=== PATIENT | female | born 1940 | race Caucasian/White ===

== ENCOUNTER 2016-08-01 10:00 | Outpatient (CLI) | payer MEDICARE, OTHER ==
[2016-08-01 13:09] LABS: BASOPHILS # (AUTO) 0.1 10^3/uL (0.0-0.1); BASOPHILS % (AUTO) 1.1 %; EOSINOPHILS # (AUTO) 0.3 10^3/uL (0.0-0.7); HCT - HEMATOCRIT 42.3 % (37.0-47.0); HGB - HEMOGLOBIN 14.2 g/dL (12.0-16.0); LYMPHOCYTES # (AUTO) 2.5 10^3/uL (1.5-3.5); LYMPHOCYTES % (AUTO) 29.4 %; MEAN CORPUSCULAR HEMOGLOBIN 28.6 pg (27.0-31.0); MEAN CORPUSCULAR HGB CONC 33.6 g/dL (32.0-36.0); MEAN CORPUSCULAR VOLUME 85.1 fL (81.0-99.0); MEAN PLATELET VOLUME 7.9 fL (7.9-10.8); MONOCYTES # (AUTO) 0.4 10^3/uL (0.0-1.0); MONOCYTES % (AUTO) 4.7 %; NEUTROPHILS # (AUTO) 5.4 10^3/uL (1.5-6.6); NEUTROPHILS % (AUTO) 61.8 %; RED BLOOD COUNT 4.97 10^6/uL (4.20-5.40); RED CELL DISTRIBUTION WIDTH 13.4 % (12.0-15.0); UNCORRECTED WHITE BLOOD COUNT 8.7 x10^3/uL; WHITE BLOOD COUNT 8.7 x10^3/uL (4.8-10.8)
[2016-08-01 13:46] LABS: ALBUMIN/GLOBULIN RATIO 1.5 (1.0-2.2); BILIRUBIN,TOTAL 0.5 mg/dL (0.2-1.0); BUN - BLOOD UREA NITROGEN 13 mg/dL (6-20); CALCIUM 9.7 mg/dL (8.5-10.3); CARBON DIOXIDE - CO2 30 mmol/L (21-32); CHLORIDE 101 mmol/L (101-111); CHOL/HDL RATIO 2.5 (<4.4); CHOLESTEROL 122 mg/dL; CREATININE 0.8 mg/dL (0.4-1.0); GFR - MDRD 70 (>89); GLUCOSE 107 mg/dL (70-100); HDL CHOLESTEROL 49 mg/dL; LDL/HDL RATIO 1.1 (<4.4); POTASSIUM 3.4 mmol/L (3.5-5.0); SODIUM 139 mmol/L (135-145); TRIGLYCERIDES 91 mg/dL; VLDL CHOLESTEROL 18 mg/dL
[2016-08-01 18:49] LABS: HEMOGLOBIN A1C 0.53 g/dL
== END 2016-08-01 10:01 | disposition home or self-care (01) ==
LOC: LAB.WCP 10:00
PROVIDERS: ATTEND Family Medicine
DX: I10 Essential (primary) hypertension (principal); E11.9 Type 2 diabetes mellitus without complications; E78.5 Hyperlipidemia, unspecified
CPT/HCPCS: 36415; 80053; 80061; 82043; 83036; 85025

== ENCOUNTER 2016-10-24 17:23 | Outpatient (CLI) | payer MEDICARE, OTHER ==
[2016-10-24 13:17] LABS: BASOPHILS # (AUTO) 0.1 10^3/uL (0.0-0.1); EOSINOPHILS # (AUTO) 0.4 10^3/uL (0.0-0.7); EOSINOPHILS % (AUTO) 4.6 %; HCT - HEMATOCRIT 44.4 % (37.0-47.0); HGB - HEMOGLOBIN 14.5 g/dL (12.0-16.0); LYMPHOCYTES # (AUTO) 2.6 10^3/uL (1.5-3.5); LYMPHOCYTES % (AUTO) 27.1 %; MEAN CORPUSCULAR HEMOGLOBIN 27.7 pg (27.0-31.0); MEAN CORPUSCULAR HGB CONC 32.6 g/dL (32.0-36.0); MEAN CORPUSCULAR VOLUME 85.2 fL (81.0-99.0); MEAN PLATELET VOLUME 7.6 fL (7.9-10.8); MONOCYTES # (AUTO) 0.6 10^3/uL (0.0-1.0); MONOCYTES % (AUTO) 6.5 %; NEUTROPHILS # (AUTO) 5.9 10^3/uL (1.5-6.6); NEUTROPHILS % (AUTO) 60.8 %; RED BLOOD COUNT 5.21 10^6/uL (4.20-5.40); RED CELL DISTRIBUTION WIDTH 13.1 % (12.0-15.0); UNCORRECTED WHITE BLOOD COUNT 9.7 x10^3/uL; WHITE BLOOD COUNT 9.7 x10^3/uL (4.8-10.8)
[2016-10-24 13:36] LABS: HEMOGLOBIN A1C 0.64 g/dL
[2016-10-24 13:37] LABS: ALBUMIN/GLOBULIN RATIO 1.6 (1.0-2.2); BILIRUBIN,TOTAL 0.7 mg/dL (0.2-1.0); BUN - BLOOD UREA NITROGEN 13 mg/dL (6-20); CALCIUM 9.5 mg/dL (8.5-10.3); CARBON DIOXIDE - CO2 30 mmol/L (21-32); CHLORIDE 98 mmol/L (101-111); CHOL/HDL RATIO 2.7 (<4.4); CHOLESTEROL 129 mg/dL; CREATININE 0.9 mg/dL (0.4-1.0); GFR - MDRD 61 (>89); GLUCOSE 103 mg/dL (70-100); HDL CHOLESTEROL 48 mg/dL; LDL/HDL RATIO 1.2 (<4.4); POTASSIUM 3.9 mmol/L (3.5-5.0); SODIUM 136 mmol/L (135-145); TOTAL PROTEIN 6.8 g/dL (6.7-8.2); TRIGLYCERIDES 111 mg/dL; VLDL CHOLESTEROL 22 mg/dL
== END 2016-10-24 17:24 | disposition home or self-care (01) ==
LOC: LAB.WCP 17:23
PROVIDERS: ATTEND Family Medicine
DX: E78.5 Hyperlipidemia, unspecified (principal); E11.9 Type 2 diabetes mellitus without complications; I10 Essential (primary) hypertension
CPT/HCPCS: 36415; 80053; 80061; 83036; 85025

== ENCOUNTER 2017-02-01 15:23 | Outpatient (CLI) | payer MEDICARE, OTHER ==
--- NOTE | 2017-02-02 11:43 | XRAY Report ---
THREE-VIEW LEFT SHOULDER: 02/01/2017 CLINICAL INDICATION: Pain. FINDINGS: AP, oblique, scapular Y views of the left shoulder demonstrate severe osteoarthritis of th e glenohumeral joint. There is no evidence of acute fracture or dislocation. No radiopaque foreign body is seen in the soft tissues. IMPRESSION: SEVERE OSTEOARTHRITIS. JOB #: [id number] EXT JOB #:[id number]
== END 2017-02-01 15:24 | disposition home or self-care (01) ==
LOC: DI 15:23
PROVIDERS: ATTEND Family Medicine
DX: M19.012 Primary osteoarthritis, left shoulder (principal)

== ENCOUNTER 2017-02-14 15:08 | Outpatient (CLI) | payer MEDICARE, OTHER ==
[2017-02-14 12:36] LABS: BASOPHILS # (AUTO) 0.1 10^3/uL (0.0-0.1); BASOPHILS % (AUTO) 1.3 %; EOSINOPHILS # (AUTO) 0.4 10^3/uL (0.0-0.7); EOSINOPHILS % (AUTO) 5.4 %; HCT - HEMATOCRIT 43.2 % (37.0-47.0); HGB - HEMOGLOBIN 14.3 g/dL (12.0-16.0); LYMPHOCYTES # (AUTO) 2.5 10^3/uL (1.5-3.5); LYMPHOCYTES % (AUTO) 30.5 %; MEAN CORPUSCULAR HEMOGLOBIN 28.3 pg (27.0-31.0); MEAN CORPUSCULAR HGB CONC 33.1 g/dL (32.0-36.0); MEAN CORPUSCULAR VOLUME 85.5 fL (81.0-99.0); MEAN PLATELET VOLUME 8.1 fL (7.9-10.8); MONOCYTES # (AUTO) 0.4 10^3/uL (0.0-1.0); MONOCYTES % (AUTO) 5.5 %; NEUTROPHILS # (AUTO) 4.6 10^3/uL (1.5-6.6); NEUTROPHILS % (AUTO) 57.3 %; RED BLOOD COUNT 5.05 10^6/uL (4.20-5.40); RED CELL DISTRIBUTION WIDTH 13.1 % (12.0-15.0); UNCORRECTED WHITE BLOOD COUNT 8.1 x10^3/uL; WHITE BLOOD COUNT 8.1 x10^3/uL (4.8-10.8)
== END 2017-02-14 15:09 | disposition home or self-care (01) ==
LOC: LAB.WCP 15:08
PROVIDERS: ATTEND Family Medicine
DX: D47.3 Essential (hemorrhagic) thrombocythemia (principal)
CPT/HCPCS: 36415; 85025

== ENCOUNTER 2017-03-10 04:25 | Emergency (ER) | payer MEDICARE, OTHER ==
[2017-03-10] MEDS ORDERED: MECLIZINE 12.5 MG TABLET PO STA (04:45)
--- NOTE | 2017-03-10 04:45 | ED Physician Documentation ---
History of Present Illness - Stated complaint Stated Complaint: DIZZINESS - Chief complaint Chief Complaint: General - History obtained from History obtained from: Patient, Family - History of Present Illness Timing: Yesterday Pain level max: 0 Pain level now: 0 Improved by: remaining still Worsened by: moving, changing positions. - Additonal information Additional information: Patient is a 76-year-old female who presents to the emergency department with feeling like the room is spinning around her intermittently for the past 24 hours. States it is worse with movement and better with remaining still. Also occurs when she turns her head. Has had no other focal numbness or weakness. No difficulty with speech. No difficulty with word finding. No head injury. No trauma. Has not had similar symptoms in the past. No new medications. No recent illness. She is not near syncopal. Currently she is asymptomatic and feels normal. Review of Systems Ten Systems: 10 systems reviewed and negative Constitutional: denies: Fever, Chills, Myalgias Eyes: denies: Loss of vision, Decreased vision, Photophobia Ears: denies: Ear pain Nose: denies: Rhinorrhea / runny nose, Congestion Throat: denies: Sore throat Cardiac: denies: Chest pain / pressure Respiratory: reports: Other (uses home O2 for COPD). 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 : Kidney stones HEENT: None Psych: None Musculoskeletal: Chronic back pain Derm: None - Past Surgical History Past Surgical History: Yes - Present Medications Home Medications: Ambulatory Orders Medication Instructions Recorded Confirmed Fluticasone/Salmeterol 100/50 60 puffs INH 10/27/12 04/25/15 [Advair 100 Mcg/50 Mcg] Hydrochlorothiazide 25 gm MC 10/27/12 04/25/15 Tiotropium [Spiriva] 1 puffs INH DAILY 10/27/12 04/25/15 Albuterol 2.5 mg INH Q4H PRN #30 neb 04/25/15 Azithromycin [Zithromax] 250 mg PO DAILY #6 tablet 04/25/15 Ondansetron HCl [Zofran] 4 mg PO Q6H PRN #20 tablet 04/25/15 predniSONE [Deltasone] 40 mg PO DAILY 5 Days tablet 04/25/15 Meclizine [Antivert] 12.5 mg PO Q6H PRN #10 tablet 03/10/17 Nitrofurantoin Monohyd/M-Cryst 100 mg PO BID #10 capsule 03/10/17 [Macrobid 100 mg Capsule] - Allergies Allergies/Adverse Reactions: Allergies Allergy/AdvReac Type Severity Reaction Status Date / Time Penicillins Allergy Intermediate Hives Verified 03/10/17 04:39 aspirin Allergy Mild Rash Verified 03/10/17 04:39 piroxicam [From Feldene] Allergy Mild Rash Verified 03/10/17 04:39 - Social History Does the pt smoke?: No Smoking Status: Never smoker Does the pt drink ETOH?: No Does the pt have substance abuse?: No - Immunizations Immunizations are current?: Yes - POLST Patient has POLST: No PD ED PE NORMAL - Vitals Vital signs reviewed: Yes - General General: Alert and oriented X 3, No acute distress, Well developed/nourished - HEENT HEENT: Atraumatic, PERRL, EOMI (no nystagmus, no palsy), Ears normal, Moist mucous membranes, Pharynx benign - Neck Neck: Supple, no meningeal sign - Cardiac Cardiac: RRR - Respiratory Respiratory: No respiratory distress, Clear bilaterally - Abdomen Abdomen: Soft, Non tender, Non distended - Back Back: No spinal TTP - Derm Derm: Warm and dry - Extremities Extremities: No calf tenderness / cord - Neuro Neuro: Alert and oriented X 3, 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 normal finger to nose, heel to white.) Eye Opening: Spontaneous Motor: Localizes to Pain - Psych Psych: Normal mood, Normal affect Results - Vitals Vitals: Vital Signs - 24 hr 03/10/17 03/10/17 03/10/17 04:34 05:00 05:15 Temperature 36.0 C L Heart Rate 87 75 80 Respiratory 20 13 16 Rate Blood Pressure 152/77 H 152/82 H O2 Saturation 92 100 03/10/17 03/10/17 05:45 06:15 Temperature Heart Rate 79 73 Respiratory 17 16 Rate Blood Pressure 151/81 H O2 Saturation 99 100 Oxygen O2 Source Nasal cannula Oxygen Flow Rate 3 - EKG (time done) 5003 Rate: Rate (enter#) (76) Rhythm: NSR, Other (PVC) [place]: Normal Intervals: Normal MD QRS: Normal Ischemia: Normal ST segments, Q waves (II, III, aVF) Compare to prior EKG: Unchanged from prior EKG - Labs Labs: Laboratory Tests 03/10/17 03/10/17 03/10/17 04:50 04:50 05:45 WBC 14.0 H RBC 5.21 Hgb 14.7 Hct 45.1 MCV 86.7 MCH 28.2 MCHC 32.5 RDW 13.2 Plt Count 393 MPV 7.4 L Neut # 10.8 H Lymph # 2.2 [place] # 0.6 Eos # 0.3 Baso # 0.1 Absolute Nucleated RBC 0.00 Nucleated RBC % 0.0 Sodium 139 Potassium 3.2 L Chloride 99 L Carbon Dioxide 34 H Anion Gap 6.0 BUN 12 Creatinine 0.8 Estimated GFR (MDRD) 70 L Glucose 142 H Calcium 9.0 Total Bilirubin 0.3 AST 20 ALT 15 Alkaline Phosphatase 91 Total Protein 7.0 Albumin 4.1 Globulin 2.9 Albumin/Globulin Ratio 1.4 Lipase 28 Urine Color YELLOW Urine Clarity CLEAR Urine pH 6.5 Ur Specific [place] 1.010 Urine Protein NEGATIVE Urine Glucose (UA) NEGATIVE Urine Ketones NEGATIVE Urine Occult Blood NEGATIVE Urine Nitrite POSITIVE H Urine Bilirubin NEGATIVE Urine Urobilinogen 0.2 (NORMAL) Ur Leukocyte Esterase NEGATIVE Urine RBC 0-5 Urine WBC 4-5 Ur Squamous Epith Cells FEW Squamous Urine Bacteria Many H Ur Microscopic Review INDICATED Urine Culture Comments INDICATED PD MEDICAL DECISION MAKING - ED course Complexity details: reviewed results, re-evaluated patient, considered differential, d/w patient, d/w family ED course: Patient is a 76-year-old female who presents to the emergency department with what sounds like benign paroxysmal positional vertigo. No evidence of stroke. No evidence of cerebellar stroke. No evidence of tumor mass. Asymptomatic in the emergency department. No acute findings on laboratory testing. No acute EKG abnormalities. Will trial her on meclizine at home and follow-up with her doctor. No vertigo while in the ED. Patient also appears to have a urinary tract infection. Will place on Macrobid and have her follow-up with her doctor. She is well-appearing, nontoxic. Afebrile. No sepsis. No pyelonephritis Patient and family counseled regarding signs and symptoms for which I believe and urgent re-evaluation would be necessary. Patient with good understanding of and agreement to plan and is comfortable going home at this time This document was made in part using voice recognition software. While efforts are made to proofread this document, sound alike and grammatical errors may occur. Departure - Departure Disposition: Home, Self Care Clinical Impression: Hypokalemia BPPV (benign paroxysmal positional vertigo) Qualifiers: Laterality: unspecified laterality Qualified Code(s): H81.10 - Benign paroxysmal vertigo, unspecified ear UTI (urinary tract infection) Qualifiers: Urinary tract infection type: acute cystitis Hematuria presence: without hematuria Qualified Code(s): N30.00 - Acute cystitis without hematuria Condition: Good Instructions: ED BPV Vertigo, ED UTI Cystitis Female Follow-Up: Josselyn Munguia MD [Primary Care Provider] - Within 1 week Prescriptions: Meclizine [Antivert] 12.5 mg PO Q6H PRN #10 tablet PRN Reason: Vertigo Nitrofurantoin Monohyd/M-Cryst [Macrobid 100 mg Capsule] 100 mg PO BID #10 capsule Comments: Take all antibiotics until gone. Return if you worsen. Your vertigo symptoms should improve over the next few days. You can try the meclizine at home as well. Discharge Date/Time: 03/10/17 06:34
[2017-03-10 05:15] LABS: BASOPHILS # (AUTO) 0.1 10^3/uL (0.0-0.1); BASOPHILS % (AUTO) 0.5 %; EOSINOPHILS # (AUTO) 0.3 10^3/uL (0.0-0.7); EOSINOPHILS % (AUTO) 2.4 %; HCT - HEMATOCRIT 45.1 % (37.0-47.0); HGB - HEMOGLOBIN 14.7 g/dL (12.0-16.0); LYMPHOCYTES # (AUTO) 2.2 10^3/uL (1.5-3.5); LYMPHOCYTES % (AUTO) 15.4 %; MEAN CORPUSCULAR HEMOGLOBIN 28.2 pg (27.0-31.0); MEAN CORPUSCULAR HGB CONC 32.5 g/dL (32.0-36.0); MEAN CORPUSCULAR VOLUME 86.7 fL (81.0-99.0); MEAN PLATELET VOLUME 7.4 fL (7.9-10.8); MONOCYTES # (AUTO) 0.6 10^3/uL (0.0-1.0); MONOCYTES % (AUTO) 4.4 %; NEUTROPHILS # (AUTO) 10.8 10^3/uL (1.5-6.6); NEUTROPHILS % (AUTO) 77.3 %; RED BLOOD COUNT 5.21 10^6/uL (4.20-5.40); RED CELL DISTRIBUTION WIDTH 13.2 % (12.0-15.0)
[2017-03-10 05:17] LABS: ALBUMIN/GLOBULIN RATIO 1.4 (1.0-2.2); BILIRUBIN,TOTAL 0.3 mg/dL (0.2-1.0); CREATININE 0.8 mg/dL (0.4-1.0); POTASSIUM 3.2 mmol/L (3.5-5.0)
[2017-03-10] MEDS ORDERED: POTASSIUM BICARB 25 MEQ TABLET PO STA (05:29)
[2017-03-10 05:59] LABS: BILIRUBIN,URINE NEGATIVE (NEGATIVE); PH,URINE 6.5 PH (5.0-7.5)
[2017-03-10 06:11] LABS: UA w/ MICROSCOPIC CHARGE YES
[2017-03-10 06:12] LABS: UR CULTURE IF IND INDICATED
[2017-03-10 06:16] VITALS: BP 151/81
[2017-03-10] MEDS ORDERED: NITROFURANTOIN MACRO 100 MG CAPSULE PO STA (06:17)
== END 2017-03-10 06:34 | disposition home or self-care (01) ==
LOC: ED 04:25
DX: H81.10 Benign paroxysmal vertigo, unspecified ear (principal); N30.00 Acute cystitis without hematuria; I10 Essential (primary) hypertension; J44.9 Chronic obstructive pulmonary disease, unspecified
CPT/HCPCS: 36415; 80053; 81001; 83690; 85025; 87086; 93005; 99284; A9270; 81003

== ENCOUNTER 2017-03-22 11:37 | Outpatient (CLI) | payer MEDICARE, OTHER ==
[2017-03-22] MEDS ORDERED: IOPAMIDOL-300 50 ML VIAL ONE (11:57)
--- NOTE | 2017-03-23 09:05 | CT Report ---
DATE OF SERVICE: 03/22/[address] WITHOUT CONTRAST: 03/22/2017 COMPARISON: Abdomen and pelvis CT 10/27/2012. INDICATION: Weight loss, right flank pain. COPD and dizziness. TECHNIQUE: Noncontrast axial imaging of the abdomen and pelvis with coronal and sagittal reformats. In accordance with CT protocol optimization, one or more of the following dose reduction techniques were utilized for this exam: Automated exposure control, adjustment of mA and/or KV based on patient size, or use of iterative reconstructive technique. FINDINGS: Limited lung bases show atelectasis or consolidation of the right middle lobe and lingula. Seen to advantage on the concurrent chest imaging is a small focal area of pericardial thickening anteriorly. Uncertain etiology or significance. Noncontrast evaluation of the liver, spleen, pancreas, and adrenal glands is unremarkable. There is a 5 mm lower left renal stone without evidence of urologic obstruction. There is a 2 mm stone of the upper right kidney. Also, no evidence of obstruction. There is an infrarenal abdominal aortic aneurysm. It measures 3.1 cm AP and 4.4 cm transverse. There are colon diverticula without evidence of diverticulitis. No bone lesions. Soft tissues appear grossly unremarkable. IMPRESSION: 1. Infrarenal abdominal aortic aneurysm warrants followup evaluation. 2. There are bilateral nonobstructing renal stones. TD: 03/22/2017 22:10 MTDD
--- NOTE | 2017-03-23 09:05 | CT Report ---
DATE OF SERVICE: 03/22/[address]: 03/22/2017 COMPARISON: None INDICATION: Weight loss. COPD and dizziness. TECHNIQUE: Noncontrast axial imaging of the chest with coronal and sagittal reformats. In accordance with CT protocol optimization, one or more of the following dose reduction techniques were utilized for this exam: Automated exposure control, adjustment of mA and/or KV based on patient size, or use of iterative reconstructive technique. FINDINGS: There is focal pericardial thickening anteriorly that measures 1.0 cm , of uncertain significance. There are moderate emphysematous changes of the lungs diffusely. There is bibasilar scar and atelectasis, predominantly about the right middle lobe and lingula. No pneumothorax or pleural effusion. No bulky mediastinal or hilar adenopathy. There are a few subcentimeter mediastinal lymph nodes. There are calcifications of the coronary arteries. No bone lesions. Soft tissues grossly unremarkable. IMPRESSION: Bibasilar atelectasis and scar predominantly about the right middle lobe and lingula. Subtle consolidations are difficult to exclude. Correlate clinically for possible pneumonia. Followup is available. Subtle focal pericardial thickening is of uncertain etiology. TD: 03/22/2017 22:02 CHERYL
--- NOTE | 2017-03-23 10:02 | CT Report ---
DATE OF SERVICE: 03/22/[address]: 03/22/2017 No comparison. INDICATION: Vertigo since the end of February. Weight loss. Right flank pain , COPD and dizziness. TECHNIQUE: Noncontrast axial imaging of the head with coronal reformats. In accordance with CT protocol optimization, one or more of the following dose reduction techniques were utilized for this exam: Automated exposure control, adjustment of mA and/or KV based on patient size, or use of iterative reconstructive technique. FINDINGS: There are periventricular and deep white matter low attenuating foci , which are most suggestive of chronic microvascular angiopathic changes. No territorial edema. No intracranial mass or evidence of intracranial hemorrhage. There is chronic appearing right maxillary sinus disease. The mastoid air cells appear well aerated. No calvarial abnormality is seen. Soft tissues and orbits appear grossly unremarkable. 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 It measures 1.7 x 4.5 cm axially. IMPRESSION: Findings are most suggestive of chronic microangiopathic changes. No evidence of acute intracranial process. TD: 03/22/2017 21:59 MTDD
== END 2017-03-22 11:38 | disposition home or self-care (01) ==
LOC: DI 11:37
PROVIDERS: ATTEND Family Medicine
DX: R42 Dizziness and giddiness (principal); R63.4 Abnormal weight loss; R10.9 Unspecified abdominal pain; J20.9 Acute bronchitis, unspecified; J44.9 Chronic obstructive pulmonary disease, unspecified; J98.11 Atelectasis; I71.4 Abdominal aortic aneurysm, without rupture; N20.0 Calculus of kidney
CPT/HCPCS: 70450; 71250; 74176; Q9967

== ENCOUNTER 2017-04-23 09:10 | Outpatient (CLI) | payer MEDICARE, OTHER ==
[2017-04-23 13:06] LABS: BASOPHILS # (AUTO) 0.1 10^3/uL (0.0-0.1); BASOPHILS % (AUTO) 0.9 %; EOSINOPHILS # (AUTO) 0.3 10^3/uL (0.0-0.7); EOSINOPHILS % (AUTO) 3.6 %; HGB - HEMOGLOBIN 14.2 g/dL (12.0-16.0); LYMPHOCYTES # (AUTO) 2.8 10^3/uL (1.5-3.5); MEAN CORPUSCULAR HEMOGLOBIN 28.3 pg (27.0-31.0); MEAN CORPUSCULAR HGB CONC 32.9 g/dL (32.0-36.0); MEAN CORPUSCULAR VOLUME 86.1 fL (81.0-99.0); MEAN PLATELET VOLUME 8.2 fL (7.9-10.8); MONOCYTES # (AUTO) 0.4 10^3/uL (0.0-1.0); MONOCYTES % (AUTO) 4.5 %; NEUTROPHILS # (AUTO) 5.8 10^3/uL (1.5-6.6); PLT - PLATELET COUNT 371 10^3/uL (130-450); RED BLOOD COUNT 5.02 10^6/uL (4.20-5.40); RED CELL DISTRIBUTION WIDTH 13.3 % (12.0-15.0); WHITE BLOOD COUNT 9.4 x10^3/uL (4.8-10.8)
[2017-04-23 13:34] LABS: ALBUMIN 4.1 g/dL (3.2-5.5); ALBUMIN/GLOBULIN RATIO 1.5 (1.0-2.2); ALKALINE PHOSPHATASE 72 IU/L (42-121); ALT ALANINE AMINOTRANSFERASE 15 IU/L (10-60); AST ASPARTATE AMINOTRANSFERASE 20 IU/L (10-42); BILIRUBIN,TOTAL 0.7 mg/dL (0.2-1.0); BUN - BLOOD UREA NITROGEN 17 mg/dL (6-20); CARBON DIOXIDE - CO2 30 mmol/L (21-32); CHLORIDE 103 mmol/L (101-111); CHOL/HDL RATIO 2.9 (<4.4); CHOLESTEROL 123 mg/dL; CREATININE 0.9 mg/dL (0.4-1.0); GFR - MDRD 61 (>89); GLUCOSE 108 mg/dL (70-100); HDL CHOLESTEROL 43 mg/dL; LDL CHOLESTEROL,CALCULATED 57 mg/dL; LDL/HDL RATIO 1.3 (<4.4); SODIUM 139 mmol/L (135-145); TOTAL PROTEIN 6.8 g/dL (6.7-8.2); VLDL CHOLESTEROL 23 mg/dL
[2017-04-23 14:19] LABS: HB2 TOTAL 15.8 g/dL; HEMOGLOBIN A1C 0.62 g/dL; HEMOGLOBIN A1C % 5.7 % (4.6-6.2)
== END 2017-04-23 09:11 | disposition home or self-care (01) ==
LOC: LAB.WCP 09:10
PROVIDERS: ATTEND Family Medicine
DX: E78.5 Hyperlipidemia, unspecified (principal); E11.9 Type 2 diabetes mellitus without complications; I10 Essential (primary) hypertension
CPT/HCPCS: 36415; 80053; 80061; 83036; 83721; 85025

== ENCOUNTER 2017-05-04 08:00 | Outpatient (CLI) | payer MEDICARE, OTHER ==
[2017-05-04 13:46] LABS: BASOPHILS # (AUTO) 0.1 10^3/uL (0.0-0.1); BASOPHILS % (AUTO) 0.8 %; EOSINOPHILS # (AUTO) 0.1 10^3/uL (0.0-0.7); EOSINOPHILS % (AUTO) 1.3 %; HGB - HEMOGLOBIN 13.6 g/dL (12.0-16.0); LYMPHOCYTES # (AUTO) 0.8 10^3/uL (1.5-3.5); LYMPHOCYTES % (AUTO) 7.4 %; MEAN CORPUSCULAR HEMOGLOBIN 28.8 pg (27.0-31.0); MEAN CORPUSCULAR HGB CONC 33.7 g/dL (32.0-36.0); MEAN CORPUSCULAR VOLUME 85.6 fL (81.0-99.0); MEAN PLATELET VOLUME 8.1 fL (7.9-10.8); MONOCYTES # (AUTO) 0.7 10^3/uL (0.0-1.0); MONOCYTES % (AUTO) 6.6 %; NEUTROPHILS # (AUTO) 8.6 10^3/uL (1.5-6.6); NEUTROPHILS % (AUTO) 83.9 %; PLT - PLATELET COUNT 341 10^3/uL (130-450); RED BLOOD COUNT 4.72 10^6/uL (4.20-5.40); WHITE BLOOD COUNT 10.3 x10^3/uL (4.8-10.8)
[2017-05-04 13:57] LABS: ALBUMIN 3.9 g/dL (3.2-5.5); ALBUMIN/GLOBULIN RATIO 1.3 (1.0-2.2); BILIRUBIN,TOTAL 0.6 mg/dL (0.2-1.0); CALCIUM 9.4 mg/dL (8.5-10.3); CREATININE 0.9 mg/dL (0.4-1.0); TOTAL PROTEIN 6.9 g/dL (6.7-8.2)
== END 2017-05-04 08:01 | disposition home or self-care (01) ==
LOC: LAB.WCP 08:00
PROVIDERS: ATTEND Physician Assistant Medical
DX: J44.1 Chronic obstructive pulmonary disease with (acute) exacerbation (principal); J44.0 Chronic obstructive pulmonary disease with (acute) lower respiratory infection; J18.9 Pneumonia, unspecified organism
CPT/HCPCS: 36415; 80053; 85025

== ENCOUNTER 2017-07-18 07:04 | Outpatient (CLI) | payer MEDICARE, OTHER ==
[2017-07-18 13:41] LABS: BASOPHILS # (AUTO) 0.1 10^3/uL (0.0-0.1); EOSINOPHILS # (AUTO) 0.4 10^3/uL (0.0-0.7); EOSINOPHILS % (AUTO) 4.7 %; HGB - HEMOGLOBIN 13.8 g/dL (12.0-16.0); LYMPHOCYTES # (AUTO) 2.3 10^3/uL (1.5-3.5); LYMPHOCYTES % (AUTO) 26.9 %; MEAN CORPUSCULAR HEMOGLOBIN 28.7 pg (27.0-31.0); MEAN CORPUSCULAR HGB CONC 33.4 g/dL (32.0-36.0); MONOCYTES # (AUTO) 0.5 10^3/uL (0.0-1.0); MONOCYTES % (AUTO) 6.4 %; NEUTROPHILS # (AUTO) 5.1 10^3/uL (1.5-6.6); PLT - PLATELET COUNT 462 10^3/uL (130-450); RED BLOOD COUNT 4.81 10^6/uL (4.20-5.40); RED CELL DISTRIBUTION WIDTH 12.9 % (12.0-15.0); WHITE BLOOD COUNT 8.4 x10^3/uL (4.8-10.8)
[2017-07-18 13:56] LABS: ALBUMIN 3.8 g/dL (3.2-5.5); ALBUMIN/GLOBULIN RATIO 1.2 (1.0-2.2); ALKALINE PHOSPHATASE 78 IU/L (42-121); ALT ALANINE AMINOTRANSFERASE 12 IU/L (10-60); AST ASPARTATE AMINOTRANSFERASE 19 IU/L (10-42); BILIRUBIN,TOTAL 0.4 mg/dL (0.2-1.0); BUN - BLOOD UREA NITROGEN 13 mg/dL (6-20); CALCIUM 9.4 mg/dL (8.5-10.3); CARBON DIOXIDE - CO2 31 mmol/L (21-32); CHLORIDE 95 mmol/L (101-111); CHOL/HDL RATIO 2.4 (<4.4); CHOLESTEROL 92 mg/dL; CREATININE 0.8 mg/dL (0.4-1.0); GFR - MDRD 70 (>89); GLUCOSE 109 mg/dL (70-100); HDL CHOLESTEROL 38 mg/dL; LDL CHOLESTEROL,CALCULATED 42 mg/dL; LDL/HDL RATIO 1.1 (<4.4); SODIUM 134 mmol/L (135-145); TOTAL PROTEIN 6.9 g/dL (6.7-8.2); VLDL CHOLESTEROL 12 mg/dL
[2017-07-18 14:39] LABS: HB2 TOTAL 15.5 g/dL; HEMOGLOBIN A1C 0.61 g/dL; HEMOGLOBIN A1C % 5.8 % (4.6-6.2)
== END 2017-07-18 07:05 | disposition home or self-care (01) ==
LOC: LAB.WCP 07:04
PROVIDERS: ATTEND Family Medicine
DX: E87.6 Hypokalemia (principal); E11.9 Type 2 diabetes mellitus without complications; E78.5 Hyperlipidemia, unspecified; I10 Essential (primary) hypertension
CPT/HCPCS: 36415; 80053; 80061; 83036; 83721; 85025

== ENCOUNTER 2018-02-25 08:00 | Outpatient (CLI) | payer MEDICARE, OTHER ==
[2018-02-25 19:11] LABS: BASOPHILS # (AUTO) 0.1 10^3/uL (0.0-0.1); EOSINOPHILS # (AUTO) 0.2 10^3/uL (0.0-0.7); EOSINOPHILS % (AUTO) 1.8 %; HGB - HEMOGLOBIN 14.3 g/dL (12.0-16.0); LYMPHOCYTES # (AUTO) 1.9 10^3/uL (1.5-3.5); LYMPHOCYTES % (AUTO) 17.1 %; MEAN CORPUSCULAR HEMOGLOBIN 28.7 pg (27.0-31.0); MEAN CORPUSCULAR HGB CONC 32.6 g/dL (32.0-36.0); MEAN CORPUSCULAR VOLUME 88.1 fL (81.0-99.0); MEAN PLATELET VOLUME 7.4 fL (7.9-10.8); MONOCYTES # (AUTO) 0.5 10^3/uL (0.0-1.0); MONOCYTES % (AUTO) 4.6 %; NEUTROPHILS # (AUTO) 8.6 10^3/uL (1.5-6.6); NEUTROPHILS % (AUTO) 75.5 %; PLT - PLATELET COUNT 410 10^3/uL (130-450); RED BLOOD COUNT 4.98 10^6/uL (4.20-5.40); RED CELL DISTRIBUTION WIDTH 13.8 % (12.0-15.0); WHITE BLOOD COUNT 11.4 x10^3/uL (4.8-10.8)
[2018-02-25 19:52] LABS: ALBUMIN 4.1 g/dL (3.2-5.5); ALBUMIN/GLOBULIN RATIO 1.6 (1.0-2.2); BILIRUBIN,TOTAL 0.6 mg/dL (0.2-1.0); CALCIUM 9.4 mg/dL (8.5-10.3); CREATININE 0.6 mg/dL (0.4-1.0); TOTAL PROTEIN 6.7 g/dL (6.7-8.2)
== END 2018-02-25 23:59 | disposition home or self-care (01) ==
LOC: LAB.WCP 08:00
PROVIDERS: ATTEND Family Medicine
DX: I10 Essential (primary) hypertension (principal)
CPT/HCPCS: 36415; 80053; 84443; 85025

== ENCOUNTER 2018-06-14 14:18 | Outpatient (CLI) | payer MEDICARE, OTHER ==
--- NOTE | 2018-06-14 16:57 | XRAY Report ---
Reason: COPD, ACUTE EXACERBATION Procedure Date: 06/14/2018 Accession Number: [id number] / [id number] Procedure: WCP - Chest 2 View X-Ray CPT Code: 47681 FULL RESULT: EXAM: CHEST RADIOGRAPHY EXAM DATE: 06/14/2018 02:31 PM. CLINICAL HISTORY: COPD, ACUTE EXACERBATION. COMPARISON: CHEST 2 VIEW PA/LAT 01/16/2018 12:01 PM. TECHNIQUE: 2 views. FINDINGS: Lungs/Pleura: Stable opacity within the lung bases. Lungs are well expanded. No evidence of effusion. No pneumothorax. Mediastinum: Heart size is within normal limits. Other: None. IMPRESSION: No acute intrathoracic plain film abnormality. Stable radiographic appearance of the chest. RADIA
== END 2018-06-14 14:19 | disposition home or self-care (01) ==
LOC: DI.WCP 14:18
PROVIDERS: ATTEND Nurse Practitioner
DX: J44.1 Chronic obstructive pulmonary disease with (acute) exacerbation (principal)
CPT/HCPCS: 71046

== ENCOUNTER 2018-06-18 12:15 | Outpatient (CLI) | payer MEDICARE, OTHER ==
[2018-06-18 18:54] LABS: BASOPHILS % (AUTO) 0.1 %; HGB - HEMOGLOBIN 13.7 g/dL (12.0-16.0); LYMPHOCYTES # (AUTO) 1.4 10^3/uL (1.5-3.5); LYMPHOCYTES % (AUTO) 7.6 %; MEAN CORPUSCULAR HEMOGLOBIN 28.1 pg (27.0-31.0); MEAN CORPUSCULAR HGB CONC 33.3 g/dL (32.0-36.0); MEAN CORPUSCULAR VOLUME 84.3 fL (81.0-99.0); MEAN PLATELET VOLUME 7.4 fL (7.9-10.8); MONOCYTES # (AUTO) 0.9 10^3/uL (0.0-1.0); MONOCYTES % (AUTO) 5.1 %; NEUTROPHILS # (AUTO) 16.1 10^3/uL (1.5-6.6); NEUTROPHILS % (AUTO) 87.2 %; PLT - PLATELET COUNT 487 10^3/uL (130-450); RED BLOOD COUNT 4.89 10^6/uL (4.20-5.40); RED CELL DISTRIBUTION WIDTH 12.8 % (12.0-15.0); WHITE BLOOD COUNT 18.5 x10^3/uL (4.8-10.8)
[2018-06-18 19:03] LABS: ALBUMIN 3.2 g/dL (3.2-5.5); BILIRUBIN,TOTAL 0.8 mg/dL (0.2-1.0); CALCIUM 9.3 mg/dL (8.5-10.3); CREATININE 0.6 mg/dL (0.4-1.0); TOTAL PROTEIN 6.3 g/dL (6.7-8.2)
== END 2018-06-18 23:59 | disposition home or self-care (01) ==
LOC: LAB.WCP 12:15
PROVIDERS: ATTEND Physician Assistant
DX: J44.1 Chronic obstructive pulmonary disease with (acute) exacerbation (principal)
CPT/HCPCS: 36415; 80053; 85025

== ENCOUNTER 2018-06-25 08:56 | Outpatient (CLI) | payer MEDICARE, OTHER | END 2018-06-25 08:57 | disposition home or self-care (01) | LOC: DI 08:56 | PROVIDERS: ATTEND Physician Assistant | DX: R60.0 Localized edema (principal); I10 Essential (primary) hypertension | CPT/HCPCS: 93306 ==

== ENCOUNTER 2018-08-05 13:02 | Outpatient (CLI) | payer MEDICARE, OTHER ==
--- NOTE | 2018-08-05 13:35 | XRAY Report ---
Reason: COPD, ACUTE EXACERBATION Procedure Date: 08/05/2018 Accession Number: [id number] / [id number] Procedure: XR - Chest 2 View X-Ray CPT Code: 66458 FULL RESULT: EXAM: CHEST RADIOGRAPHY EXAM DATE: 08/05/2018 01:20 PM. CLINICAL HISTORY: COPD, acute exacerbation. COMPARISON: CHEST 2 VIEW 06/14/2018 2:13 PM. TECHNIQUE: 2 views. FINDINGS: Lungs/Pleura: Overall paucity of lung markings with distortion of the bronchial tree, compatible with provided history of COPD. No focal opacities evident. No pleural effusion. No pneumothorax. High lung volumes with flattened diaphragms, stable finding. Mediastinum: Heart and mediastinal contours are unremarkable. Other: The bones are qualitatively osteopenic; this limits evaluation for underlying fractures or masses. No dominant single level compression fracture is detected. IMPRESSION: Stable hyperinflated lungs without lobar consolidation detected. RADIA
--- NOTE | 2018-08-05 13:48 | CT Report ---
Reason: UNSPECIFIED INJURY OF HEAD/COPD, ACUTE EXACERBATIO Procedure Date: 08/05/2018 Accession Number: [id number] / [id number] Procedure: CT - HEAD WO CPT Code: FULL RESULT: EXAM: CT HEAD EXAM DATE: 08/05/2018 01:23 PM. CLINICAL HISTORY: Unspecified injury of head/COPD, acute exacerbation. COMPARISON: HEAD W/O 03/22/2017 1:06 PM. TECHNIQUE: Multiaxial CT images were obtained from the foramen magnum to the vertex. Reformats: Sagittal and coronal. IV contrast: None. In accordance with CT protocol optimization, one or more of the following dose reduction techniques were utilized for this exam: automated exposure control, adjustment of mA and/or KV based on patient size, or use of iterative reconstructive technique. FINDINGS: Parenchyma: No intraparenchymal hemorrhage. No evidence of mass, midline shift. Arreola-white differentiation is distinct. Extraaxial Spaces: Prominent extra-axial space in the posterior fossa is stable, as previously stated, possibly arachnoid cyst. No subdural or epidural collections identified. Ventricles: Normal in size and position. Sinuses and Orbits: Imaged paranasal sinuses, orbits, and mastoids show no significant abnormality. Bones: No evidence of fracture or calvarial defect. Other: None. IMPRESSION: No acute intracranial abnormality. RADIA The call report notification system was initiated by Dr. Chu Griffith at 01:46 PM on 08/05/2018. The above call report findings were discussed with Josselyn Munguia by Dr. Chu Griffith at 01:52 PM on 08/05/2018.
== END 2018-08-05 13:03 | disposition home or self-care (01) ==
LOC: DI 13:02
PROVIDERS: ATTEND Family Medicine
DX: J44.1 Chronic obstructive pulmonary disease with (acute) exacerbation (principal); S09.90XA Unspecified injury of head, initial encounter
CPT/HCPCS: 70450; 71046

== ENCOUNTER 2018-11-08 08:00 | Outpatient (CLI) | payer MEDICARE, OTHER ==
[2018-11-08 19:29] LABS: ALBUMIN 3.8 g/dL (3.2-5.5); ALBUMIN/GLOBULIN RATIO 1.5 (1.0-2.2); BILIRUBIN,TOTAL 0.5 mg/dL (0.2-1.0); CALCIUM 9.4 mg/dL (8.5-10.3); CREATININE 0.7 mg/dL (0.4-1.0); TOTAL PROTEIN 6.3 g/dL (6.7-8.2)
== END 2018-11-08 23:59 | disposition home or self-care (01) ==
LOC: LAB.WCP 08:00
PROVIDERS: ATTEND Family Medicine
DX: E87.1 Hypo-osmolality and hyponatremia (principal)
CPT/HCPCS: 36415; 80053

== ENCOUNTER 2018-12-25 11:55 | Outpatient (CLI) | payer MEDICARE, OTHER ==
--- NOTE | 2018-12-26 16:43 | Ultrasound Report ---
Reason: FOOT ULCER Procedure Date: 12/25/2018 Accession Number: [id number] / [id number] Procedure: US - Ankle Brachial Index CPT Code: FULL RESULT: EXAM: BILATERAL ANKLE/BRACHIAL INDEX EXAM DATE: 12/25/2018 01:34 PM. CLINICAL HISTORY: FOOT ULCER. COMPARISON: None. TECHNIQUE: A blood pressure cuff and pulse volume recording Doppler ultrasound was used to evaluate the arterial pressures in the arms and ankle. Images were acquired. FINDINGS: Brachial pressure: Right brachial artery: 126/70 mmHg. Left brachial artery: 132/83 mmHg. Right ankle pressures: 154/76 mmHg Left ankle pressures: 152/74 mmHg Right: Peak systolic velocity right posterior tibial artery: 104 cm/s. Dorsalis pedis artery 66 cm/s. Biphasic Doppler waveforms. Left: Peak systolic velocity in left posterior tib artery 51 cm/s. Dorsalis pedis artery 59 cm/s. Biphasic Doppler waveforms. IMPRESSION: Normal exam. 1. Right ankle/brachial index: 1.13. 2. Left ankle/brachial index: 1.15. ANKLE/BRACHIAL INDEX REFERENCE STANDARDS 1.0-1.4: Normal 0.90-0.99: Borderline < 0.9: Abnormal RADIA
== END 2018-12-25 11:56 | disposition home or self-care (01) ==
LOC: DI 11:55
PROVIDERS: ATTEND Physician Assistant Medical
DX: L97.909 Non-pressure chronic ulcer of unspecified part of unspecified lower leg with unspecified severity (principal)
CPT/HCPCS: 93922

== ENCOUNTER 2019-02-24 08:00 | Outpatient (CLI) | payer MEDICARE, OTHER ==
[2019-02-24 12:36] LABS: BASOPHILS # (AUTO) 0.1 10^3/uL (0.0-0.1); EOSINOPHILS # (AUTO) 0.8 10^3/uL (0.0-0.7); EOSINOPHILS % (AUTO) 8.8 %; HGB - HEMOGLOBIN 13.5 g/dL (12.0-16.0); LYMPHOCYTES # (AUTO) 2.3 10^3/uL (1.5-3.5); LYMPHOCYTES % (AUTO) 25.3 %; MEAN CORPUSCULAR HEMOGLOBIN 29.3 pg (27.0-31.0); MEAN CORPUSCULAR VOLUME 94.6 fL (81.0-99.0); MEAN PLATELET VOLUME 9.9 fL (7.9-10.8); MONOCYTES # (AUTO) 0.4 10^3/uL (0.0-1.0); MONOCYTES % (AUTO) 4.6 %; NEUTROPHILS # (AUTO) 5.4 10^3/uL (1.5-6.6); NEUTROPHILS % (AUTO) 60.1 %; PLT - PLATELET COUNT 366 10^3/uL (130-450); RED CELL DISTRIBUTION WIDTH 13.5 % (12.0-15.0)
[2019-02-24 12:49] LABS: HB2 TOTAL 13.4 g/dL; HEMOGLOBIN A1C 0.54 g/dL; HEMOGLOBIN A1C % 5.8 % (4.6-6.2)
[2019-02-24 13:18] LABS: ALBUMIN 4.1 g/dL (3.2-5.5); ALBUMIN/GLOBULIN RATIO 1.6 (1.0-2.2); ALKALINE PHOSPHATASE 72 IU/L (42-121); ALT ALANINE AMINOTRANSFERASE 12 IU/L (10-60); AST ASPARTATE AMINOTRANSFERASE 17 IU/L (10-42); BILIRUBIN,TOTAL 0.5 mg/dL (0.2-1.0); BUN - BLOOD UREA NITROGEN 19 mg/dL (6-20); CALCIUM 9.4 mg/dL (8.5-10.3); CARBON DIOXIDE - CO2 33 mmol/L (21-32); CHLORIDE 102 mmol/L (101-111); CHOL/HDL RATIO 2.3 (<4.4); CHOLESTEROL 120 mg/dL; CREATININE 0.8 mg/dL (0.4-1.0); GFR - MDRD 69 (>89); GLUCOSE 121 mg/dL (70-100); HDL CHOLESTEROL 52 mg/dL; LDL CHOLESTEROL,CALCULATED 47 mg/dL; LDL/HDL RATIO 0.9 (<4.4); SODIUM 142 mmol/L (135-145); TOTAL PROTEIN 6.6 g/dL (6.7-8.2); VLDL CHOLESTEROL 21 mg/dL
== END 2019-02-24 23:59 | disposition home or self-care (01) ==
LOC: LAB.WCP 08:00
PROVIDERS: ATTEND Nurse Practitioner Family
DX: E11.9 Type 2 diabetes mellitus without complications (principal); E78.5 Hyperlipidemia, unspecified; I10 Essential (primary) hypertension; B35.1 Tinea unguium
CPT/HCPCS: 36415; 80053; 80061; 80076; 82248; 82565; 83036; 83721; 84443; 84520; 85025

== ENCOUNTER 2019-03-21 10:47 | Outpatient (CLI) | payer MEDICARE, OTHER | END 2019-03-21 10:48 | disposition home or self-care (01) | LOC: RT 10:47 | PROVIDERS: ATTEND Internal Medicine Gastroenterology | DX: I10 Essential (primary) hypertension (principal); J44.9 Chronic obstructive pulmonary disease, unspecified; Z99.81 Dependence on supplemental oxygen; E78.5 Hyperlipidemia, unspecified | CPT/HCPCS: 93005 ==

== ENCOUNTER 2019-03-24 11:23 | Day surgery (SDC) | payer MEDICARE, OTHER ==
[2019-03-24] MEDS ORDERED: LACTATED RINGERS 1,000 ML IV ONE ×2 (11:33→11:34)
--- NOTE | 2019-03-24 12:34 | ANESTHESIA ---
Pre-Anesthesia VS, & Labs - Diagnosis history of colon polyp - Procedure colonoscopy Vital Signs: Temp Pulse Resp BP Pulse Ox 36.6 C 98 16 155/105 H 95 03/24/19 11:34 03/24/19 11:34 03/24/19 11:34 03/24/19 11:34 03/24/19 11:34 Height 5 ft 6 in Weight (kg) 54.7 kg Body Mass Index 23.3 - NPO >8 hours - Is Patient ?: Not Applicable Home Medications and Allergies Home Medications: Ambulatory Orders Acetaminophen [Tylenol] 650 mg PO DAILY 03/21/19 Albuterol Sulfate [Proventil Hfa Inhaler] 1 - 2 puffs INH Q4H PRN 03/21/19 Aspirin [Aspirin EC] 81 mg PO DAILY 03/21/19 Diltiazem HCl [Diltiazem ER] 240 mg PO DAILY 03/21/19 Liane-C 1,000 mg PO DAILY 03/21/19 Fluticasone/Salmeterol [Advair 500-50 Diskus] 1 each IH BID 03/21/19 Furosemide [Lasix] 40 mg PO DAILY 03/21/19 Guaifenesin/Dextromethorphan [Mucus Relief Dm Cough Tablet] 1 each PO BID 03/21/19 Losartan [Cozaar] 50 mg PO BID 03/21/19 Potassium Chloride [Klor-Con 10] 10 meq PO DAILY 03/21/19 Simvastatin 20 mg PO QPM 03/21/19 terbinafine HCL [Terbinafine HCl] 250 mg PO DAILY 03/21/19 Tiotropium [Spiriva] 1 puffs INH DAILY 10/27/12 Acetaminophen [Tylenol] 650 mg PO DAILY 03/21/19 Albuterol Sulfate [Proventil Hfa Inhaler] 1 - 2 puffs INH Q4H PRN 03/21/19 Aspirin [Aspirin EC] 81 mg PO DAILY 03/21/19 Diltiazem HCl [Diltiazem ER] 240 mg PO DAILY 03/21/19 Liane-C 1,000 mg PO DAILY 03/21/19 Fluticasone/Salmeterol [Advair 500-50 Diskus] 1 each IH BID 03/21/19 Furosemide [Lasix] 40 mg PO DAILY 03/21/19 Guaifenesin/Dextromethorphan [Mucus Relief Dm Cough Tablet] 1 each PO BID 03/21/19 Losartan [Cozaar] 50 mg PO BID 03/21/19 Potassium Chloride [Klor-Con 10] 10 meq PO DAILY 03/21/19 Simvastatin 20 mg PO QPM 03/21/19 terbinafine HCL [Terbinafine HCl] 250 mg PO DAILY 03/21/19 Allergies/Adverse Reactions: Allergies Allergy/AdvReac Type Severity Reaction Status Date / Time Penicillins Allergy Intermediate Hives, Verified 03/21/19 12:33 swelling aspirin Allergy Mild Rash Verified 03/21/19 12:33 piroxicam [From Feldene] Allergy Mild Rash Verified 03/10/17 04:39 meperidine [From Demerol] Allergy Unknown Verified 03/21/19 12:33 Anes History & Medical History - Anesthetic History Anesthesia Complications: reports: No previous complications - Medical History Cardiovascular: reports: Hypertension, Murmur Pulmonary: reports: Asthma, COPD, Pneumonia, Shortness of breath, Other (uses home O2) Gastrointestinal: reports: Colon polyps Urinary: reports: Kidney stones Neuro: reports: None, CVA (right sided weakness) Musculoskeletal: reports: Osteoarthritis, Chronic back pain, Other Endocrine/Autoimmune: reports: None Blood Disorders: reports: None Skin: reports: Other Smoking Status: Former smoker (quit 50 years ago) Psychosocial: reports: No issues indicated - Surgical History General: Colonoscopy Urologic: Ureterolithotomy (stones) Exam General: Alert, Oriented x3, Cooperative, No acute distress Dental: Other (edentulous) Mouth Openin Fingerbreadth Neck Mobility: Normal Mallampati classification: I Thyromental Distance: greater than 6 cm Respiratory: Lungs clear, Normal breath sounds, No respiratory distress, No accessory muscle use Cardiovascular: Regular rate, Normal S1, Normal S2, No murmurs Mental/Cognitive Status: Alert/Oriented X3, Normal for patient Plan Anesthesia Type: MAC Consent for Procedure(s) Verified and Reviewed: Yes Code Status: Attempt Resuscitation ASA classification: 4-Incapacitating disease Is this case an emergency?: No
[2019-03-24] MEDS ORDERED: PROPOFOL 200 MG/20 ML VIAL IVP ONE (13:18)
[2019-03-24 14:20] VITALS: BP 158/80
== END 2019-03-24 11:24 | disposition home or self-care (01) ==
LOC: SDS 11:23
PROVIDERS: ATTEND Internal Medicine Gastroenterology
PROC: 0DBH8ZZ Excision of Cecum, Via Natural or Artificial Opening Endoscopic (ICD-10-PCS; 2019-03-24)
PROC: 0DBL8ZZ Excision of Transverse Colon, Via Natural or Artificial Opening Endoscopic (ICD-10-PCS; 2019-03-24)
PROC: 0DBN8ZZ Excision of Sigmoid Colon, Via Natural or Artificial Opening Endoscopic (ICD-10-PCS; principal; 2019-03-24 13:00)
DX: D12.0 Benign neoplasm of cecum (principal); D12.3 Benign neoplasm of transverse colon; D12.5 Benign neoplasm of sigmoid colon; K57.30 Diverticulosis of large intestine without perforation or abscess without bleeding; K59.00 Constipation, unspecified; I10 Essential (primary) hypertension; J44.9 Chronic obstructive pulmonary disease, unspecified; Z99.81 Dependence on supplemental oxygen; E78.5 Hyperlipidemia, unspecified; I69.951 Hemiplegia and hemiparesis following unspecified cerebrovascular disease affecting right dominant side; M47.816 Spondylosis without myelopathy or radiculopathy, lumbar region; Z87.891 Personal history of nicotine dependence; Z87.01 Personal history of pneumonia (recurrent); Z86.19 Personal history of other infectious and parasitic diseases; Z79.51 Long term (current) use of inhaled steroids; Z79.82 Long term (current) use of aspirin
CPT/HCPCS: 45380; 45385; J7120

== ENCOUNTER 2019-04-08 08:00 | Outpatient (CLI) | payer MEDICARE, OTHER ==
[2019-04-08 19:13] LABS: ALBUMIN 3.9 g/dL (3.2-5.5); BILIRUBIN,DIRECT 0.1 mg/dL (0.1-0.5); BILIRUBIN,TOTAL 0.5 mg/dL (0.2-1.0); CREATININE 0.7 mg/dL (0.4-1.0); TOTAL PROTEIN 6.9 g/dL (6.7-8.2)
== END 2019-04-08 23:59 | disposition home or self-care (01) ==
LOC: LAB.WCP 08:00
PROVIDERS: ATTEND Physician Assistant Medical
DX: B35.1 Tinea unguium (principal); Z79.899 Other long term (current) drug therapy
CPT/HCPCS: 36415; 80076; 82565; 84520

== ENCOUNTER 2019-04-26 07:54 | Emergency (ER) | payer MEDICARE, OTHER ==
[2019-04-26 08:09] VITALS: BP 127/67
--- NOTE | 2019-04-26 08:34 | ED Physician Documentation ---
History of Present Illness - Stated complaint Stated Complaint: SWOLLEN LEFT EYE - Chief complaint Chief Complaint: Heent - History obtained from History obtained from: Patient - Additonal information Additional information: This is a 78-year-old woman who presents with complaints that her left eye is swollen and she thinks is from a sinus blockage due to a sinus infection. She started to get a headache on the left side of her forehead and temporal area several days ago and then 2 mornings ago she woke up with pressure around the left eye and the top eyelid was just a little bit swollen. She had some pain, down in the left side of her throat and she got up through the day yesterday the swelling was in getting more severe and she noticed some bumps on her eyelid. This morning she woke up at 130 the left eye was crusted shut and she could not get back to sleep because she had some discomfort not in the eye itself but just in the left side of her scalp and forehead. Her temp was 100.1 this morning. Her vision seems to be okay. She has clear runny nose up until the point that the swelling started now that has resolved. Left nose feels just a little bit obstructed when breathing through it. She is been using a sinus relief [id number] medication and applying heating pad. Denies pain in the ear. She has some discomfort across the back of her neck. No numbness or tingling down into her arms or legs and she did get a shingles shot Review of Systems Constitutional: reports: Fever Eyes: reports: Discharge. 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 : Kidney stones HEENT: None Psych: None Musculoskeletal: Chronic back pain Derm: None - Past Surgical History Past Surgical History: Yes - Present Medications Home Medications: Ambulatory Orders Medication Instructions Recorded Confirmed Tiotropium [Spiriva] 1 puffs INH DAILY 10/27/12 03/21/19 Acetaminophen [Tylenol] 650 mg PO DAILY 03/21/19 03/21/19 Albuterol Sulfate [Proventil Hfa 1 - 2 puffs INH Q4H PRN 03/21/19 03/21/19 Inhaler] Aspirin [Aspirin EC] 81 mg PO DAILY 03/21/19 03/21/19 Diltiazem HCl [Diltiazem ER] 240 mg PO DAILY 03/21/19 03/21/19 Liane-C 1,000 mg PO DAILY 03/21/19 Fluticasone/Salmeterol [Advair 1 each IH BID 03/21/19 03/21/19 500-50 Diskus] Furosemide [Lasix] 40 mg PO DAILY 03/21/19 03/21/19 Losartan [Cozaar] 50 mg PO BID 03/21/19 03/21/19 Potassium Chloride [Klor-Con 10] 10 meq PO DAILY 03/21/19 03/21/19 terbinafine HCL [Terbinafine HCl] 250 mg PO DAILY 03/21/19 03/21/19 Acyclovir [Zovirax] 800 mg PO 5XD 7 Days #35 tablet 04/26/19 - Allergies Allergies/Adverse Reactions: Allergies Allergy/AdvReac Type Severity Reaction Status Date / Time Penicillins Allergy Intermediate Hives, Verified 04/26/19 08:09 swelling aspirin Allergy Mild Rash Verified 04/26/19 08:09 piroxicam [From Feldene] Allergy Mild Rash Verified 04/26/19 08:09 meperidine [From Demerol] Allergy Unknown Verified 04/26/19 08:09 - Social History Does the pt smoke?: No Smoking Status: Never smoker Does the pt drink ETOH?: No Does the pt have substance abuse?: No - Immunizations Immunizations are current?: Yes - POLST Patient has POLST: No PD ED PE NORMAL - Vitals Vital signs reviewed: Yes - General General: Alert and oriented X 3, No acute distress, Well developed/nourished - HEENT HEENT: PERRL, EOMI, Moist mucous membranes, Other (There is an erythema to the left forehead involving the left upper and lower eyelids worse on the right and left upper eyelid and there are some small crusted lesions on the left upper eyelid toward the medial aspect. The conjunctiva is clear; the cornea is clear; pupils are equal round reactive to light. There is no crusting drainage. TMs could not be visualized because of cerumen impaction bilaterally. Oropharynx is clear without intraoral lesions.) - Neck Neck: Supple, no meningeal sign, Other (There is a small left anterior cervical lymph node that is mildly tender under the angle of the left jaw.) - Cardiac Cardiac: RRR, No murmur, Strong equal pulses - Respiratory Respiratory: No respiratory distress, Clear bilaterally - Derm Derm: Other (As above under HEENT) - Neuro Neuro: Alert and oriented X 3, machine feller 2-12 intact, No motor deficit, No sensory deficit, Normal speech Results - Vitals Vitals: Vital Signs - 24 hr 04/26/19 08:07 Temperature 37.6 C H Heart Rate 52 L Respiratory 16 Rate Blood Pressure 127/67 O2 Saturation 94 Oxygen O2 Source Room air PD MEDICAL DECISION MAKING - ED course ED course: Patient has shingles. Placed on acyclovir. No indication for oral antibiotics. Tylenol or ibuprofen and cool compresses may help alleviate some of the discomfort. We discussed that she could potentially spread chickenpox and should avoid young children especially infants, anyone with compromise of the immune system or autoimmune disorder, any adults who have not had chickenpox. Departure - Departure Disposition: Home, Self Care Clinical Impression: Shingles of eyelid Shingles Qualifiers: Herpes zoster complications: without complications Qualified Code(s): B02.9 - Zoster without complications Condition: Good Instructions: ED Shingles Follow-Up: Gina Pete PA-C [Primary Care Provider] - Prescriptions: Acyclovir [Zovirax] 800 mg PO 5XD 7 Days #35 tablet Comments: Take the acyclovir 5 times a day for a week. Cool compresses might help soothe the pain. Take Tylenol or ibuprofen if needed for pain. This could be contagious to people who have not had chickenpox or been vaccinated previously. You should avoid contact with young infants, the elderly or anyone who has problems with their immune system such as an autoimmune disorder or chronic steroid medications. You are no longer contagious after the lesions are scabbed over. Return for recheck if you have involvement of the eye with pain or change in the vision. Follow-up with your primary care provider for reevaluation after finishing the antiviral
== END 2019-04-26 08:59 | disposition home or self-care (01) ==
LOC: ED 07:54
DX: B02.39 Other herpes zoster eye disease (principal); I10 Essential (primary) hypertension; Z79.82 Long term (current) use of aspirin
CPT/HCPCS: 99282; 99284

== ENCOUNTER 2019-05-23 08:00 | Outpatient (CLI) | payer MEDICARE, OTHER ==
[2019-05-23 12:17] LABS: ALKALINE PHOSPHATASE 87 IU/L (42-121); ALT ALANINE AMINOTRANSFERASE 15 IU/L (10-60); AST ASPARTATE AMINOTRANSFERASE 17 IU/L (10-42); BILIRUBIN,TOTAL 0.7 mg/dL (0.2-1.0)
[2019-05-23 12:18] LABS: BILIRUBIN,DIRECT < 0.1 mg/dL (0.1-0.5)
== END 2019-05-23 23:59 | disposition home or self-care (01) ==
LOC: LAB.WCP 08:00
PROVIDERS: ATTEND Physician Assistant Medical
DX: B35.1 Tinea unguium (principal); Z79.899 Other long term (current) drug therapy
CPT/HCPCS: 36415; 80076

== ENCOUNTER 2019-06-09 08:14 | Outpatient (CLI) | payer MEDICARE, OTHER ==
--- NOTE | 2019-06-09 10:14 | Ultrasound Report ---
Reason: ABDOMINAL AORTIC ANEURYSM Procedure Date: 06/09/2019 Accession Number: [id number] / [id number] Procedure: US - Retroperitoneal Limited CPT Code: Final Report FULL RESULT: EXAM: AORTIC DOPPLER ULTRASOUND EXAM DATE: 06/09/2019 09:01 AM. CLINICAL HISTORY: Abdominal aortic aneurysm. COMPARISON: CT CHEST W/O 03/22/2017 1:09 PM. TECHNIQUE: Real-time sonographic imaging of retroperitoneal vascular structures, including color-flow, Doppler flow and spectral analysis was performed by the casing material weigher. Multiple financial foundations representative static images were saved for review. FINDINGS: Aorta: The abdominal aorta was adequately visualized. Aorta: Proximal: Sagittal AP 2.6 cm. Mid: Transverse 2.4 x 2.5 cm. Distal: Transverse 3.3 x 4.2 cm. Plaque visualized: Yes. Iliacs: Right Iliac: Transverse 1.1 x 1.1 cm. Left Iliac: Transverse 1.1 x 1.2 cm. Iliac Vessels: The visualized proximal common iliac arteries are normal in caliber. Other: None. IMPRESSION: There is fusiform aneurysmal dilatation of the distal abdominal aorta which measures up to 4.2 x 3.3 cm in the transverse plane. RADIA
== END 2019-06-09 08:15 | disposition home or self-care (01) ==
LOC: DI 08:14
PROVIDERS: ATTEND Physician Assistant Medical
DX: I71.4 Abdominal aortic aneurysm, without rupture (principal)
CPT/HCPCS: 76775

== ENCOUNTER 2019-06-13 14:16 | Emergency (ER) | payer MEDICARE, OTHER ==
[2019-06-13] MEDS ORDERED: SODIUM CHLORIDE 0.9% 500 ML IV ONE (14:48)
--- NOTE | 2019-06-13 14:57 | ED Physician Documentation ---
History of Present Illness - Stated complaint Stated Complaint: FEVER/SHAKING - Chief complaint Chief Complaint: General - History obtained from History obtained from: Patient - History of Present Illness Timing: How many days ago (3-4) Pain level max: 0 Pain level now: 0 - Additonal information Additional information: 78-year-old female presents to the emergency department stating that she has been coughing and having fevers for the past 3 to 4 days. T-max of 103 at home. Nothing makes it better or worse. She is normally on 3 L of home O2, but did not bring her oxygen with her on the way to the hospital today because she states that her oxygen tank leaks. Therefore her initial triage vital signs wer e off of her usual 24/7 home oxygen. She states that her cough is chronic and unchanged. Does have mild right ear pain. No sore throat. No nausea, vomiting, diarrhea. No abdominal pain. No dysuria. Nothing makes it better or worse. Review of Systems Ten Systems: 10 systems reviewed and negative Constitutional: reports: Fever, Chills, Myalgias Ears: reports: Ear pain (Right ear) Nose: reports: Rhinorrhea / runny nose, Congestion Throat: denies: Sore throat Cardiac: denies: Chest pain / pressure Respiratory: reports: Dyspnea (Patient states she is not more short of breath than usual) GI: denies: Abdominal Pain, Nausea, Vomiting, Diarrhea Skin: denies: Rash Musculoskeletal: denies: Neck pain, Back pain Neurologic: denies: Headache PD PAST MEDICAL HISTORY - Past Medical History Cardiovascular: Hypertension Respiratory: Asthma, COPD, Pneumonia, Shortness of breath, Other Neuro: None, CVA Endocrine/Autoimmune: None GI: None 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 : Kidney stones HEENT: None Psych: None Musculoskeletal: Chronic back pain Derm: None - Past Surgical History Past Surgical History: Yes - Present Medications Home Medications: Ambulatory Orders Medication Instructions Recorded Confirmed Tiotropium [Spiriva] 1 puffs INH DAILY 10/27/12 03/21/19 Acetaminophen [Tylenol] 650 mg PO DAILY 03/21/19 03/21/19 Albuterol Sulfate [Proventil Hfa 1 - 2 puffs INH Q4H PRN 03/21/19 03/21/19 Inhaler] Aspirin [Aspirin EC] 81 mg PO DAILY 03/21/19 03/21/19 Diltiazem HCl [Diltiazem ER] 240 mg PO DAILY 03/21/19 03/21/19 Liane-C 1,000 mg PO DAILY 03/21/19 Fluticasone/Salmeterol [Advair 1 each IH BID 03/21/19 03/21/19 500-50 Diskus] Furosemide [Lasix] 40 mg PO DAILY 03/21/19 03/21/19 Losartan [Cozaar] 50 mg PO BID 03/21/19 03/21/19 Potassium Chloride [Klor-Con 10] 10 meq PO DAILY 03/21/19 03/21/19 terbinafine HCL [Terbinafine HCl] 250 mg PO DAILY 03/21/19 03/21/19 Acyclovir [Zovirax] 800 mg PO 5XD 7 Days #35 tablet 04/26/19 Azithromycin [Zithromax] 250 mg PO DAILY #4 tablet 06/13/19 Cefdinir 300 mg PO BID #20 capsule 06/13/19 - Allergies Allergies/Adverse Reactions: Allergies Allergy/AdvReac Type Severity Reaction Status Date / Time Penicillins Allergy Intermediate Hives, Verified 04/26/19 08:09 swelling aspirin Allergy Mild Rash Verified 04/26/19 08:09 piroxicam [From Feldene] Allergy Mild Rash Verified 04/26/19 08:09 meperidine [From Demerol] Allergy Unknown Verified 04/26/19 08:09 - Social History Does the pt smoke?: No Smoking Status: Never smoker Does the pt drink ETOH?: No Does the pt have substance abuse?: No - Immunizations Immunizations are current?: Yes - POLST Patient has POLST: No PD ED PE NORMAL - Vitals Vital signs reviewed: Yes - General General: Alert and oriented X 3, No acute distress - HEENT HEENT: PERRL, Ears normal, Moist mucous membranes, Pharynx benign - Neck Neck: Supple, no meningeal sign, No adenopathy - Cardiac Cardiac: RRR, Strong equal pulses - Respiratory Respiratory: No respiratory distress, Other (Diminished breath sounds and wheezing bilaterally) - Abdomen Abdomen: Soft, Non tender, Non distended - Back Back: No CVA TTP, No spinal TTP - Derm Derm: Warm and dry, No rash - Extremities Extremities: Other (1+ bilateral edema) - Neuro Neuro: Alert and oriented X 3 Results - Vitals Vitals: Vital Signs - 24 hr 06/13/19 06/13/19 06/13/19 14:21 15:30 16:00 Temperature 37.1 C Heart Rate 49 L 84 85 Respiratory 20 17 22 Rate Blood Pressure 71/33 L 115/57 L 115/88 H O2 Saturation 86 L 97 100 06/13/19 16:37 Temperature Heart Rate 81 Respiratory 18 Rate Blood Pressure 127/66 O2 Saturation 100 Oxygen O2 Source Room air - EKG (time done) 1440 Rate: Rate (enter#) (83) Rhythm: NSR, Other (OVC) [place]: Normal Intervals: Normal NE QRS: Normal Ischemia: Normal ST segments - Labs Labs: Laboratory Tests 06/13/19 06/13/19 06/13/19 14:35 14:35 15:11 WBC 26.1 H RBC 3.84 L Hgb 11.4 L Hct 36.2 L MCV 94.3 MCH 29.7 MCHC 31.5 L RDW 15.2 H Plt Count 534 H MPV 9.9 Neut # (Auto) GENERAL TECHNICIAN Lymph # (Auto) GENERAL TECHNICIAN [place] # (Auto) GENERAL TECHNICIAN Eos # (Auto) GENERAL TECHNICIAN Baso # (Auto) GENERAL TECHNICIAN Absolute Nucleated RBC GENERAL TECHNICIAN Total Counted 100 Band Neuts % (Manual) 2 Abnorm Lymph % (Manual) 0 Nucleated RBC % GENERAL TECHNICIAN Neutrophils # (Manual) 23.2 H Lymphocytes # (Manual) 1.6 Monocytes # (Manual) 1.3 H Eosinophils # (Manual) 0.0 Basophils # (Manual) 0.0 Differential Comment MANUAL DIFFERENTIAL Manual Slide Review Indicated WBC Morphology 1+ TOXIC GRANULATION Platelet Estimate INCREASED (>450,000) Platelet Morphology NORMAL APPEARANCE RBC Morph Micro Appear NORMAL APPEARANCE PT INR APTT Sodium 132 L Potassium 4.2 Chloride 92 L Carbon Dioxide 29 Anion Gap 11.0 BUN 12 Creatinine 0.8 Estimated GFR (MDRD) 69 L Glucose 109 H Lactic Acid 0.9 Calcium 8.8 Total Bilirubin 0.5 AST 22 ALT 15 Alkaline Phosphatase 69 B-Natriuretic Peptide Total Protein 7.0 Albumin 3.1 L Globulin 3.9 Albumin/Globulin Ratio 0.8 L Lipase 24 Urine Color Urine Clarity Urine pH Ur Specific [place] Urine Protein Urine Glucose (UA) Urine Ketones Urine Occult Blood Urine Nitrite Urine Bilirubin Urine Urobilinogen Ur Leukocyte Esterase Ur Microscopic Review Urine Culture Comments Influenza A (Rapid) Influenza B (Rapid) 06/13/19 06/13/19 06/13/19 15:11 15:11 15:20 WBC RBC Hgb Hct MCV MCH MCHC RDW Plt Count MPV Neut # (Auto) Lymph # (Auto) [place] # (Auto) Eos # (Auto) Baso # (Auto) Absolute Nucleated RBC Total Counted Band Neuts % (Manual) Abnorm Lymph % (Manual) Nucleated RBC % Neutrophils # (Manual) Lymphocytes # (Manual) Monocytes # (Manual) Eosinophils # (Manual) Basophils # (Manual) Differential Comment Manual Slide Review WBC Morphology Platelet Estimate Platelet Morphology RBC Morph Micro Appear PT 14.7 H INR 1.3 H APTT 27.0 Sodium Potassium Chloride Carbon Dioxide Anion Gap BUN Creatinine Estimated GFR (MDRD) Glucose Lactic Acid Calcium Total Bilirubin AST ALT Alkaline Phosphatase B-Natriuretic Peptide 173 H Total Protein Albumin Globulin Albumin/Globulin Ratio Lipase Urine Color Urine Clarity Urine pH Ur Specific [place] Urine Protein Urine Glucose (UA) Urine Ketones Urine Occult Blood Urine Nitrite Urine Bilirubin Urine Urobilinogen Ur Leukocyte Esterase Ur Microscopic Review Urine Culture Comments Influenza A (Rapid) Negative Influenza B (Rapid) POSITIVE H 06/13/19 15:50 WBC RBC Hgb Hct MCV MCH MCHC RDW Plt Count MPV Neut # (Auto) Lymph # (Auto) [place] # (Auto) Eos # (Auto) Baso # (Auto) Absolute Nucleated RBC Total Counted Band Neuts % (Manual) Abnorm Lymph % (Manual) Nucleated RBC % Neutrophils # (Manual) Lymphocytes # (Manual) Monocytes # (Manual) Eosinophils # (Manual) Basophils # (Manual) Differential Comment Manual Slide Review WBC Morphology Platelet Estimate Platelet Morphology RBC Morph Micro Appear PT INR APTT Sodium Potassium Chloride Carbon Dioxide Anion Gap BUN Creatinine Estimated GFR (MDRD) Glucose Lactic Acid Calcium Total Bilirubin AST ALT Alkaline Phosphatase B-Natriuretic Peptide Total Protein Albumin Globulin Albumin/Globulin Ratio Lipase Urine Color YELLOW Urine Clarity CLEAR Urine pH 6.0 Ur Specific [place] <=1.005 Urine Protein NEGATIVE Urine Glucose (UA) NEGATIVE Urine Ketones NEGATIVE Urine Occult Blood NEGATIVE Urine Nitrite NEGATIVE Urine Bilirubin NEGATIVE Urine Urobilinogen 0.2 (NORMAL) Ur Leukocyte Esterase NEGATIVE Ur Microscopic Review NOT INDICATED Urine Culture Comments NOT INDICATED Influenza A (Rapid) Influenza B (Rapid) - Rads (name of study) Chest x-ray Radiology: Prelim report reviewed, EMP read contemporaneously, See rad report (Patchy infiltrate lung bases bilaterally consistent with pulmonary edema, atypical pneumonia or aspiration pneumonia. ) PD MEDICAL DECISION MAKING - ED course Complexity details: reviewed results, re-evaluated patient, considered differential, d/w patient ED course: Patient with possible pneumonia on chest x-ray as well as positive for influenza B. She was given IV antibiotics. She was placed back on her normal 3 L of home O2 and is no longer hypoxic. Her vital signs are now normal. She feels much better and does not want to stay in the hospital. She would like to go home at this time. As she is well-appearing and nontoxic. Normal lactate. We will allow her to go home and place her on antibiotics. Patient counseled regarding signs and symptoms for which I believe and urgent re-evaluation would be necessary. Patient with good understanding of and agreement to plan and is comfortable going home at this time This document was made in part using voice recognition software. While efforts are made to proofread this document, sound alike and grammatical errors may occur. As her home oxygen tank is leaking, a new oxygen tank was given to her to go home with. Departure - Departure Disposition: 01 Home, Self Care Clinical Impression: Influenza B Pneumonia Qualifiers: Pneumonia type: due to unspecified organism Laterality: right Lung location: lower lobe of lung Qualified Code(s): J18.9 - Pneumonia, unspecified organism Condition: Good Instructions: ED Flu, ED Pneumonia Adult Follow-Up: Gina Pete PA-C [Primary Care Provider] - Within 1 week Prescriptions: Azithromycin [Zithromax] 250 mg PO DAILY #4 tablet Cefdinir 300 mg PO BID #20 capsule Comments: Take all antibiotics until gone. Return if you worsen. Follow-up with your doctor for further care. Discharge Date/Time: 06/13/19 17:38
[2019-06-13 15:01] LABS: BASOPHILS % (AUTO) 0.5 %; EOSINOPHILS % (AUTO) 0.2 %; HGB - HEMOGLOBIN 11.4 g/dL (12.0-16.0); LYMPHOCYTES % (AUTO) 6.3 %; MEAN CORPUSCULAR HEMOGLOBIN 29.7 pg (27.0-31.0); MEAN CORPUSCULAR HGB CONC 31.5 g/dL (32.0-36.0); MEAN CORPUSCULAR VOLUME 94.3 fL (81.0-99.0); MEAN PLATELET VOLUME 9.9 fL (7.9-10.8); MONOCYTES % (AUTO) 6.4 %; NEUTROPHILS % (AUTO) 85.7 %; PLT - PLATELET COUNT 534 10^3/uL (130-450); RED BLOOD COUNT 3.84 10^6/uL (4.20-5.40); RED CELL DISTRIBUTION WIDTH 15.2 % (12.0-15.0); WHITE BLOOD COUNT 26.1 x10^3/uL (4.8-10.8)
[2019-06-13 15:05] LABS: ABNORMAL LYMPHS % (MANUAL) 0 %
[2019-06-13 15:17] LABS: ALBUMIN 3.1 g/dL (3.2-5.5); ALBUMIN/GLOBULIN RATIO 0.8 (1.0-2.2); BILIRUBIN,TOTAL 0.5 mg/dL (0.2-1.0); CALCIUM 8.8 mg/dL (8.5-10.3); CREATININE 0.8 mg/dL (0.4-1.0)
[2019-06-13 15:22] LABS: BAND NEUTROPHILS % (MANUAL) 2 %; LYMPHOCYTES # (MANUAL) 1.6 10^3/uL (1.5-3.5); LYMPHOCYTES % (MANUAL) 6 %; MONOCYTES # (MANUAL) 1.3 10^3/uL (0.0-1.0)
[2019-06-13 15:23] LABS: PLATELET ESTIMATE, MANUAL INCREASED (>450,000) (NORMAL); PLATELET MORPHOLOGY NORMAL APPEARANCE (NORMAL); RBC MORPHOLOGY (MULTIPLE) NORMAL APPEARANCE (NORMAL)
[2019-06-13 15:27] LABS: INR 1.3 (0.8-1.2); PT - PROTHROMBIN TIME 14.7 secs (9.9-12.6)
[2019-06-13 15:29] LABS: DIFFERENTIAL COMMENT MANUAL DIFFERENTIAL
[2019-06-13] MEDS ORDERED: AZITHROMYCIN 250 MG TABLET PO STA (15:40)
[2019-06-13] MEDS ORDERED: cefTRIAXone 1 GM VIAL IVP STA (15:40)
[2019-06-13 15:59] LABS: BILIRUBIN,URINE NEGATIVE (NEGATIVE); GLUCOSE, URINE (UA) NEGATIVE (NEGATIVE); KETONES,URINE (UA) NEGATIVE (NEGATIVE); LEUKOCYTE ESTERASE, URINE NEGATIVE (NEGATIVE); NITRITE,URINE NEGATIVE (NEGATIVE); OCCULT BLOOD,URINE NEGATIVE (NEGATIVE); PROTEIN,URINE NEGATIVE (NEGATIVE); UROBILINOGEN,URINE 0.2 (NORMAL) E.U./dL (NORMAL)
[2019-06-13 16:00] LABS: CLARITY,URINE CLEAR (CLEAR)
--- NOTE | 2019-06-13 16:13 | XRAY Report ---
Reason: cough, fever Procedure Date: 06/13/2019 Accession Number: [id number] / [id number] Procedure: XR - Chest 1 View X-Ray CPT Code: 84258 Final Report FULL RESULT: EXAM: CHEST RADIOGRAPHY EXAM DATE: 06/13/2019 03:03 PM. CLINICAL HISTORY: Cough, fever. Fever 3-4 days. COMPARISON: CHEST 2 VIEW 08/05/2018 1:13 PM. TECHNIQUE: 1 view. FINDINGS: Lungs/Pleura: COPD. Patchy infiltrate in lung bases bilaterally. Small left pleural fluid. Mediastinum: Normal heart size. Other: None. IMPRESSION: Patchy infiltrate lung bases bilaterally consistent with pulmonary edema, atypical pneumonia or aspiration pneumonia. RADIA
[2019-06-13 16:37] VITALS: BP 127/66
== END 2019-06-13 17:38 | disposition home or self-care (01) ==
LOC: ED 14:16
DX: J10.00 Influenza due to other identified influenza virus with unspecified type of pneumonia (principal); I10 Essential (primary) hypertension; Z99.81 Dependence on supplemental oxygen; Z86.73 Personal history of transient ischemic attack (TIA), and cerebral infarction without residual deficits
CPT/HCPCS: 36415; 51701; 71045; 80053; 81003; 83605; 83690; 83880; 85025; 85610; 85730; 87040; 87275; 87276; 93005; 96361; 96374; 99284; A9270; 81001; 87086

== ENCOUNTER 2019-06-19 07:00 | Outpatient (CLI) | payer MEDICARE, OTHER ==
[2019-06-19 11:53] LABS: BASOPHILS # (AUTO) 0.1 10^3/uL (0.0-0.1); BASOPHILS % (AUTO) 0.7 %; EOSINOPHILS # (AUTO) 0.4 10^3/uL (0.0-0.7); EOSINOPHILS % (AUTO) 4.7 %; HGB - HEMOGLOBIN 11.2 g/dL (12.0-16.0); LYMPHOCYTES # (AUTO) 1.9 10^3/uL (1.5-3.5); LYMPHOCYTES % (AUTO) 21.6 %; MEAN CORPUSCULAR HEMOGLOBIN 28.6 pg (27.0-31.0); MEAN CORPUSCULAR HGB CONC 29.6 g/dL (32.0-36.0); MEAN CORPUSCULAR VOLUME 96.9 fL (81.0-99.0); MEAN PLATELET VOLUME 9.8 fL (7.9-10.8); MONOCYTES # (AUTO) 0.5 10^3/uL (0.0-1.0); MONOCYTES % (AUTO) 5.7 %; NEUTROPHILS # (AUTO) 5.9 10^3/uL (1.5-6.6); NEUTROPHILS % (AUTO) 65.7 %; PLT - PLATELET COUNT 627 10^3/uL (130-450); RED BLOOD COUNT 3.91 10^6/uL (4.20-5.40); RED CELL DISTRIBUTION WIDTH 15.7 % (12.0-15.0)
== END 2019-06-19 23:59 | disposition home or self-care (01) ==
LOC: LAB.WCP 07:00
PROVIDERS: ATTEND Physician Assistant Medical
DX: J11.1 Influenza due to unidentified influenza virus with other respiratory manifestations (principal)
CPT/HCPCS: 36415; 85025

== ENCOUNTER 2019-08-12 08:38 | Outpatient (CLI) | payer MEDICARE, OTHER ==
[2019-08-12 14:11] LABS: ALBUMIN 4.2 g/dL (3.2-5.5); ALKALINE PHOSPHATASE 91 IU/L (42-121); ALT ALANINE AMINOTRANSFERASE 15 IU/L (10-60); AST ASPARTATE AMINOTRANSFERASE 21 IU/L (10-42); BILIRUBIN,TOTAL 0.6 mg/dL (0.2-1.0); BUN - BLOOD UREA NITROGEN 14 mg/dL (6-20); CREATININE 0.8 mg/dL (0.4-1.0); TOTAL PROTEIN 7.1 g/dL (6.7-8.2)
[2019-08-12 14:13] LABS: BILIRUBIN,DIRECT < 0.1 mg/dL (0.1-0.5)
== END 2019-08-12 23:59 | disposition home or self-care (01) ==
LOC: LAB.WCP 08:38
PROVIDERS: ATTEND Physician Assistant Medical
DX: B35.1 Tinea unguium (principal); Z79.899 Other long term (current) drug therapy
CPT/HCPCS: 36415; 80076; 82565; 84520

== ENCOUNTER 2019-08-27 09:26 | Outpatient (CLI) | payer MEDICARE, OTHER ==
[2019-08-27 12:57] LABS: ALBUMIN 4.1 g/dL (3.2-5.5); ALBUMIN/GLOBULIN RATIO 1.5 (1.0-2.2); ALKALINE PHOSPHATASE 93 IU/L (42-121); ALT ALANINE AMINOTRANSFERASE 15 IU/L (10-60); AST ASPARTATE AMINOTRANSFERASE 18 IU/L (10-42); BILIRUBIN,TOTAL 0.8 mg/dL (0.2-1.0); BUN - BLOOD UREA NITROGEN 16 mg/dL (6-20); CALCIUM 9.5 mg/dL (8.5-10.3); CARBON DIOXIDE - CO2 35 mmol/L (21-32); CHLORIDE 99 mmol/L (101-111); CHOL/HDL RATIO 2.1 (<4.4); CHOLESTEROL 118 mg/dL; CREATININE 0.8 mg/dL (0.4-1.0); GLUCOSE 104 mg/dL (70-100); HDL CHOLESTEROL 55 mg/dL; LDL CHOLESTEROL,CALCULATED 47 mg/dL; LDL/HDL RATIO 0.9 (<4.4); SODIUM 142 mmol/L (135-145); TOTAL PROTEIN 6.9 g/dL (6.7-8.2); VLDL CHOLESTEROL 16 mg/dL
== END 2019-08-27 09:27 | disposition home or self-care (01) ==
LOC: LAB.WCP 09:26
PROVIDERS: ATTEND Physician Assistant Medical
DX: E78.5 Hyperlipidemia, unspecified (principal)
CPT/HCPCS: 36415; 80053; 80061; 83721

== ENCOUNTER 2020-02-26 07:00 | Outpatient (CLI) | payer MEDICARE, OTHER ==
[2020-02-26 13:21] LABS: ALBUMIN 4.2 g/dL (3.2-5.5); ALBUMIN/GLOBULIN RATIO 1.5 (1.0-2.2); ALKALINE PHOSPHATASE 85 IU/L (42-121); ALT ALANINE AMINOTRANSFERASE < 10 IU/L (10-60); AST ASPARTATE AMINOTRANSFERASE 14 IU/L (10-42); BILIRUBIN,TOTAL 0.6 mg/dL (0.2-1.0); BUN - BLOOD UREA NITROGEN 13 mg/dL (6-20); CALCIUM 9.5 mg/dL (8.5-10.3); CARBON DIOXIDE - CO2 33 mmol/L (21-32); CHLORIDE 98 mmol/L (101-111); CHOL/HDL RATIO 2.2 (<4.4); CHOLESTEROL 112 mg/dL; CREATININE 0.7 mg/dL (0.4-1.0); GLUCOSE 109 mg/dL (70-100); HDL CHOLESTEROL 51 mg/dL; LDL CHOLESTEROL,CALCULATED 44 mg/dL; LDL/HDL RATIO 0.9 (<4.4); SODIUM 144 mmol/L (135-145); VLDL CHOLESTEROL 17 mg/dL
== END 2020-02-26 23:59 | disposition home or self-care (01) ==
LOC: LAB.WCP 07:00
PROVIDERS: ATTEND Physician Assistant Medical
DX: I10 Essential (primary) hypertension (principal); E78.5 Hyperlipidemia, unspecified
CPT/HCPCS: 36415; 80053; 80061; 83721

== ENCOUNTER 2020-04-15 08:08 | Outpatient (CLI) | payer MEDICARE, OTHER ==
[2020-04-15 12:18] LABS: CALCIUM 9.6 mg/dL (8.5-10.3); CREATININE 0.8 mg/dL (0.4-1.0)
== END 2020-04-15 23:59 | disposition home or self-care (01) ==
LOC: LAB.WCP 08:08
PROVIDERS: ATTEND Physician Assistant Medical
DX: I10 Essential (primary) hypertension (principal)
CPT/HCPCS: 36415; 80048

== ENCOUNTER 2020-05-13 10:34 | Outpatient (CLI) | payer MEDICARE, OTHER ==
--- NOTE | 2020-05-18 14:31 | Mammography Report ---
BILATERAL DIGITAL SCREENING MAMMOGRAM: 05/13/2020 CLINICAL: Routine screening. Comparison is made to exams dated: 05/14/2013 mammogram, 05/07/2012 mammogram, 01/16/2011 mammogram, a nd 10/25/2009 mammogram - [facility]. The tissue of both breasts is heterogeneously dense. This may lower the sensitivity of mammography. There are benign calcifications in both breasts. No significant masses, calcifications, or other findings are seen in either breast. There has been no significant interval change. IMPRESSION: BENIGN There is no mammographic evidence of malignancy. A 1 year screening mammogram is recommended. This exam was interpreted at Station ID: [id number]. NOTE: For mammograms, a report in lay terms will be sent to the patient. Approximately 15% of breast malignancies will not be visualized mammographically. In the management of a palpable breast mass, a negative mammogram must not discourage biopsy of a clinically suspicious lesion. Electronically Signed By: Lewis Urena M.D. [facility] [place]:05/18/2020 13:38:28 ACR BI-RADS Category 2: Benign Finding(s) 3342F PARENCHYMAL PATTERN: (D) - The breast(s) demonstrate(s) heterogeneously dense fibroglandular parenchy ma. BI-RADS CATEGORY: (2) - 2 RECOMMENDATION: (ANNUAL) - Recommend routine annual screening mammography. [id number] 1 year screening LATERALITY: (B)
== END 2020-05-13 10:35 | disposition home or self-care (01) ==
LOC: DI.N 10:34
DX: Z12.31 Encounter for screening mammogram for malignant neoplasm of breast (principal)

== ENCOUNTER 2020-06-01 07:57 | Outpatient (CLI) | payer MEDICARE, OTHER ==
--- NOTE | 2020-06-01 11:12 | Ultrasound Report ---
PROCEDURE: Aorta Screening INDICATIONS: AAA TECHNIQUE: Real time scanning was performed of the aorta and iliac arteries, with image documentatio n. COMPARISON: Retroperitoneal ultrasound 06/09/2019 FINDINGS: Aorta: Proximal aortic diameter measures 2.7 x 3.1 cm. Mid-aorta measures 1.9 x 1.2 cm. Distal aor tic diameter is 3.4 x 4.0 cm. Distal aorta previous exam measured 3.3 x 4.2 cm. Scattered areas of mi ld atherosclerotic mural thrombus and calcification are noted. Iliac arteries: Right common iliac artery measures 1.2 x 1.0 cm. Left common iliac artery measures 1.1 x 1.0 cm. IMPRESSION: Mild ectasia of the distal aorta, unchanged. Reviewed by: Verena Cordero MD on 06/01/2020 11:11 AM PDT Approved by: Verena Cordero MD on 06/01/2020 11:11 AM PDT Station ID: [id number]
== END 2020-06-01 07:58 | disposition home or self-care (01) ==
LOC: DI 07:57
PROVIDERS: ATTEND Physician Assistant Medical
DX: I77.811 Abdominal aortic ectasia (principal)

== ENCOUNTER 2020-08-31 08:00 | Outpatient (CLI) | payer MEDICARE, OTHER ==
[2020-08-31 18:49] LABS: BASOPHILS # (AUTO) 0.1 10^3/uL (0.0-0.1); BASOPHILS % (AUTO) 0.9 %; EOSINOPHILS # (AUTO) 0.3 10^3/uL (0.0-0.7); EOSINOPHILS % (AUTO) 3.9 %; HCT - HEMATOCRIT 43.7 % (37.0-47.0); HGB - HEMOGLOBIN 13.1 g/dL (12.0-16.0); LYMPHOCYTES # (AUTO) 2.2 10^3/uL (1.5-3.5); LYMPHOCYTES % (AUTO) 25.5 %; MEAN CORPUSCULAR HEMOGLOBIN 28.7 pg (27.0-31.0); MEAN CORPUSCULAR VOLUME 95.8 fL (81.0-99.0); MEAN PLATELET VOLUME 10.5 fL (7.9-10.8); MONOCYTES # (AUTO) 0.3 10^3/uL (0.0-1.0); MONOCYTES % (AUTO) 3.8 %; NEUTROPHILS # (AUTO) 5.6 10^3/uL (1.5-6.6); NEUTROPHILS % (AUTO) 65.6 %; PLT - PLATELET COUNT 330 10^3/uL (130-450); RED BLOOD COUNT 4.56 10^6/uL (4.20-5.40); RED CELL DISTRIBUTION WIDTH 12.4 % (12.0-15.0); WHITE BLOOD COUNT 8.6 x10^3/uL (4.8-10.8)
[2020-08-31 19:21] LABS: ALBUMIN 4.3 g/dL (3.2-5.5); ALBUMIN/GLOBULIN RATIO 1.7 (1.0-2.2); ALKALINE PHOSPHATASE 81 IU/L (42-121); ALT ALANINE AMINOTRANSFERASE 11 IU/L (10-60); AST ASPARTATE AMINOTRANSFERASE 17 IU/L (10-42); BILIRUBIN,TOTAL 0.6 mg/dL (0.2-1.0); BUN - BLOOD UREA NITROGEN 11 mg/dL (6-20); CALCIUM 9.3 mg/dL (8.5-10.3); CARBON DIOXIDE - CO2 32 mmol/L (21-32); CHLORIDE 102 mmol/L (101-111); CHOL/HDL RATIO 2.1 (<4.4); CHOLESTEROL 105 mg/dL; CREATININE 0.7 mg/dL (0.4-1.0); GFR - MDRD 81 (>89); GLUCOSE 98 mg/dL (70-100); HDL CHOLESTEROL 50 mg/dL; LDL CHOLESTEROL,CALCULATED 34 mg/dL; LDL/HDL RATIO 0.7 (<4.4); POTASSIUM 3.7 mmol/L (3.5-5.0); SODIUM 143 mmol/L (135-145); TOTAL PROTEIN 6.9 g/dL (6.7-8.2); TRIGLYCERIDES 107 mg/dL; VLDL CHOLESTEROL 21 mg/dL
== END 2020-08-31 23:59 | disposition home or self-care (01) ==
LOC: LAB.WCP 08:00
PROVIDERS: ATTEND Physician Assistant Medical
DX: E78.5 Hyperlipidemia, unspecified (principal); J30.9 Allergic rhinitis, unspecified
CPT/HCPCS: 36415; 80053; 80061; 83721; 85025

== ENCOUNTER 2020-12-02 08:00 | Outpatient (CLI) | payer MEDICARE, OTHER ==
[2020-12-02 19:09] LABS: ALBUMIN 4.5 g/dL (3.2-5.5); BILIRUBIN,DIRECT 0.3 mg/dL (0.1-0.5); BILIRUBIN,TOTAL 0.8 mg/dL (0.2-1.0); CREATININE 0.8 mg/dL (0.4-1.0); TOTAL PROTEIN 7.3 g/dL (6.7-8.2)
== END 2020-12-02 23:59 | disposition home or self-care (01) ==
LOC: LAB.WCP 08:00
PROVIDERS: ATTEND Physician Assistant Medical
DX: B35.1 Tinea unguium (principal); Z79.899 Other long term (current) drug therapy
CPT/HCPCS: 36415; 80076; 82565; 84520

== ENCOUNTER 2021-02-05 13:28 | Outpatient (CLI) | payer MEDICARE, OTHER ==
[2021-02-05 17:19] LABS: ALBUMIN 4.2 g/dL (3.2-5.5); ALBUMIN/GLOBULIN RATIO 1.6 (1.0-2.2); ALKALINE PHOSPHATASE 87 IU/L (42-121); ALT ALANINE AMINOTRANSFERASE 14 IU/L (10-60); AST ASPARTATE AMINOTRANSFERASE 20 IU/L (10-42); BILIRUBIN,TOTAL 0.4 mg/dL (0.2-1.0); BUN - BLOOD UREA NITROGEN 15 mg/dL (6-20); CALCIUM 9.3 mg/dL (8.5-10.3); CARBON DIOXIDE - CO2 38 mmol/L (21-32); CHLORIDE 93 mmol/L (101-111); CHOLESTEROL 112 mg/dL; CREATININE 0.8 mg/dL (0.4-1.0); GFR - MDRD 69 (>89); GLUCOSE 103 mg/dL (70-100); HDL CHOLESTEROL 57 mg/dL; LDL CHOLESTEROL,CALCULATED 41 mg/dL; LDL/HDL RATIO 0.7 (<4.4); POTASSIUM 4.3 mmol/L (3.5-5.0); SODIUM 141 mmol/L (135-145); TOTAL PROTEIN 6.9 g/dL (6.7-8.2); TRIGLYCERIDES 69 mg/dL; VLDL CHOLESTEROL 14 mg/dL
== END 2021-02-05 13:29 | disposition home or self-care (01) ==
LOC: LAB.N 13:28
PROVIDERS: ATTEND Physician Assistant Medical
DX: E78.5 Hyperlipidemia, unspecified (principal)
CPT/HCPCS: 36415; 80053; 80061; 83721

== ENCOUNTER 2021-03-25 12:42 | Outpatient (CLI) | payer MEDICARE, OTHER ==
--- NOTE | 2021-03-25 13:37 | DEXA Report ---
PROCEDURE: Dexa Spine and/or Hip INDICATIONS: POST MENOPAUSAL TECHNIQUE: Dual energy x-ray absorptiometry (DXA) was performed on a [employer] System. Regions measur ed are the AP Spine, femoral neck, and if needed forearm. COMPARISON: None. FINDINGS: Lumbar Spine: Bone Mineral Density 1.187 g/cm/cm,T score 0.1, normal Left Femoral Neck: Bone Mineral Density 0.633 g/cm/cm, T score -2.9, osteoporosis Total T score: -3.4 (T score greater or equal to -1.0: NORMAL) (T score from -1.1 to -2.4: OSTEOPENIA) (T score less than or equal to -2.5 to: OSTEOPOROSIS) Impression: Bone mineral density as detailed above. Patients with diagnosis of osteoporosis or osteopenia should have regular bone mineral density assess ment. For those eligible for Medicare, routine testing is allowed once every 2 years. Testing frequ ency can be increased for patients who have rapidly progressing disease or for those who are receivin g medical therapy to restore bone mass. Reviewed by: Arthur Bailey MD on 03/25/2021 1:36 PM PST Approved by: Arthur Bailey MD on 03/25/2021 1:36 PM PST Station ID: [id number]
== END 2021-03-25 12:43 | disposition home or self-care (01) ==
LOC: DI 12:42
PROVIDERS: ATTEND Physician Assistant Medical
DX: Z78.0 Asymptomatic menopausal state (principal); M81.0 Age-related osteoporosis without current pathological fracture

== ENCOUNTER 2021-04-15 08:00 | Outpatient (CLI) | payer MEDICARE, OTHER | END 2021-04-15 23:59 | disposition home or self-care (01) | LOC: LAB.N 08:00 | PROVIDERS: ATTEND Physician Assistant | DX: U07.1 COVID-19 (principal) ==

== ENCOUNTER 2021-04-15 13:21 | Outpatient (CLI) | payer MEDICARE, OTHER ==
--- NOTE | 2021-04-15 14:45 | XRAY Report ---
PROCEDURE: Chest 2 View X-Ray INDICATIONS: COUGH TECHNIQUE: 2 view(s) of the chest. COMPARISON: 06/13/2019. FINDINGS: Surgical changes and devices: None. Lungs and pleura: No pleural effusions or pneumothorax. Emphysematous change. Improved appearance co mpared to the previous study. Mild interstitial pulmonary edema. Mediastinum: Mediastinal contours are normal. Heart size is normal. Bones and chest wall: No suspicious bony abnormalities. Soft tissues appear unremarkable. IMPRESSION: COPD. Mild congestive heart failure. Reviewed by: Zheng Verdin MD on 04/15/2021 2:43 PM PST Approved by: Zheng Verdin MD on 04/15/2021 2:43 PM PST Station ID: [id number]
== END 2021-04-15 23:59 | disposition home or self-care (01) ==
LOC: DI.N 13:21
PROVIDERS: ATTEND Physician Assistant
DX: R05.9 Cough, unspecified (principal); J44.9 Chronic obstructive pulmonary disease, unspecified; I50.9 Heart failure, unspecified

== ENCOUNTER 2021-05-26 16:09 | Outpatient (CLI) | payer MEDICARE, OTHER ==
--- NOTE | 2021-05-26 17:44 | XRAY Report ---
PROCEDURE: Chest 2 View X-Ray INDICATIONS: COUGH TECHNIQUE: 2 view(s) of the chest. COMPARISON: Prior chest radiograph dated 04/15/2021 FINDINGS: Surgical changes and devices: None. Lungs and pleura: Lung volumes are increased. No pleural effusions or pneumothorax. Left basilar air space opacity. Right lung is clear. Mediastinum: Mediastinal contours are normal. Heart size is normal. Bones and chest wall: No suspicious bony abnormalities. Soft tissues appear unremarkable. IMPRESSION: 1. Left basilar airspace opacity consistent with atelectasis versus aspiration or pneumonia. 2. Large lung volumes suggesting COPD. Correlate clinically. Reviewed by: MUSTAPHA Rose on 05/26/2021 5:43 PM PST Approved by: Dante Olmstead MD on 05/26/2021 5:43 PM PST Station ID: [id number]
== END 2021-05-26 23:59 | disposition home or self-care (01) ==
LOC: DI.N 16:09
PROVIDERS: ATTEND Physician Assistant
DX: R91.8 Other nonspecific abnormal finding of lung field (principal)

== ENCOUNTER 2021-07-20 10:39 | Outpatient (CLI) | payer MEDICARE, OTHER ==
--- NOTE | 2021-07-22 16:19 | Mammography Report ---
BILATERAL DIGITAL SCREENING MAMMOGRAM: 07/20/2021 CLINICAL: Routine screening. Comparison is made to exams dated: 05/13/2020 mammogram, 05/14/2013 mammogram, 05/07/2012 mammogram, mammogram, and 10/25/2009 mammogram - [facility]. The tissue of both breast s is heterogeneously dense. This may lower the sensitivity of mammography. There are benign calcifications in both breasts. No significant masses, calcifications, or other findings are seen in either breast. There has been no significant interval change. IMPRESSION: BENIGN There is no mammographic evidence of malignancy. A 1 year screening mammogram is recommended. This exam was interpreted at Station ID: [id number]. NOTE: For mammograms, a report in lay terms will be sent to the patient. Approximately 15% of breast malignancies will not be visualized mammographically. In the management of a palpable breast mass, a negative mammogram must not discourage biopsy of a clinically suspicious lesion. Electronically Signed By: Gutierrez Valente M.D., jr/gerda:07/20/2021 11:32:05 ACR BI-RADS Category 2: Benign Finding(s) 3342F PARENCHYMAL PATTERN: (D) - The breast(s) demonstrate(s) heterogeneously dense fibroglandular mimi wiley. BI-RADS CATEGORY: (2) - 2 RECOMMENDATION: (ANNUAL) - Recommend routine annual screening mammography. [id number] 1 year screening LATERALITY: (B)
== END 2021-07-20 10:40 | disposition home or self-care (01) ==
LOC: DI.N 10:39
DX: Z12.31 Encounter for screening mammogram for malignant neoplasm of breast (principal)

== ENCOUNTER 2021-08-15 13:39 | Outpatient (CLI) | payer MEDICARE, OTHER | END 2021-08-15 13:40 | disposition critical access hospital (66) | LOC: EMS 13:39 | DX: R10.31 Right lower quadrant pain (principal); M54.50 Low back pain, unspecified | CPT/HCPCS: A0425; A0427 ==

== ENCOUNTER 2021-08-15 13:58 | Emergency (ER) | payer MEDICARE, OTHER ==
[2021-08-15] MEDS ORDERED: HYDROmorphone 1 MG/ML CARPUJECT IVP STA (14:31)
--- NOTE | 2021-08-15 14:35 | ED Physician Documentation ---
History of Present Illness - Stated complaint Stated Complaint: R FLANK PX - Chief complaint Chief Complaint: Abd Pain - Additonal information Additional information: 80-year-old female who has a history Mo significant for hypertension and oxygen dependent COPD presents the emergency department for evaluation of acute right flank pain that began this AM. Reports pain that began in her right CVA area that has migrated down to the right lower quadrant. No fevers, nausea or vomiting. No dysuria urgency or frequency. No hematuria. No history of similar. Past surgical history is most significant for gallbladder stone removal though n o cholecystectomy. Review of Systems Constitutional: denies: Fever, Chills Ears: reports: Reviewed and negative Cardiac: reports: Reviewed and negative Respiratory: reports: Reviewed and negative GI: reports: Abdominal Pain. 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: None : Kidney stones HEENT: None Psych: None Musculoskeletal: Chronic back pain Derm: None - Past Surgical History Past Surgical History: Yes - Present Medications Home Medications: Ambulatory Orders Medication Instructions Recorded Confirmed Tiotropium [Spiriva] 1 puffs INH DAILY 10/27/12 03/21/19 Acetaminophen [Tylenol] 650 mg PO DAILY 03/21/19 03/21/19 Albuterol Sulfate [Proventil Hfa 1 - 2 puffs INH Q4H PRN 03/21/19 03/21/19 Inhaler] Aspirin [Aspirin EC] 81 mg PO DAILY 03/21/19 03/21/19 Diltiazem HCl [Diltiazem ER] 240 mg PO DAILY 03/21/19 03/21/19 Liane-C 1,000 mg PO DAILY 03/21/19 Fluticasone/Salmeterol [Advair 1 each IH BID 03/21/19 03/21/19 500-50 Diskus] Furosemide [Lasix] 40 mg PO DAILY 03/21/19 03/21/19 Losartan [Cozaar] 50 mg PO BID 03/21/19 03/21/19 Potassium Chloride [Klor-Con 10] 10 meq PO DAILY 03/21/19 03/21/19 terbinafine HCL [Terbinafine HCl] 250 mg PO DAILY 03/21/19 03/21/19 Acyclovir [Zovirax] 800 mg PO 5XD 7 Days #35 tablet 04/26/19 Azithromycin [Zithromax] 250 mg PO DAILY #4 tablet 06/13/19 Cefdinir 300 mg PO BID #20 capsule 06/13/19 Ondansetron Odt [Zofran Odt] 4 mg TL Q6H PRN #10 tablet 08/15/21 Tamsulosin HCl [Flomax] 0.4 mg PO DAILY #30 cap 08/15/21 oxyCODONE [Roxicodone] 5 mg PO TID PRN #20 tablet 08/15/21 - Allergies Allergies/Adverse Reactions: Allergies Allergy/AdvReac Type Severity Reaction Status Date / Time Penicillins Allergy Intermediate Hives, Verified 08/15/21 14:10 swelling aspirin Allergy Mild Rash Verified 08/15/21 14:10 piroxicam [From Feldene] Allergy Mild Rash Verified 08/15/21 14:10 meperidine [From Demerol] Allergy Unknown Verified 08/15/21 14:10 - Social History Does the pt smoke?: No Smoking Status: Never smoker Does the pt drink ETOH?: No Does the pt have substance abuse?: No - Immunizations Immunizations are current?: Yes - POLST Patient has POLST: No PD ED PE NORMAL - General General: Alert and oriented X 3, No acute distress, Well developed/nourished - HEENT HEENT: Atraumatic - Neck Neck: Supple, no meningeal sign - Cardiac Cardiac: RRR, No murmur - Respiratory Respiratory: No respiratory distress, Clear bilaterally - Abdomen Abdomen: Normal bowel sounds, Soft. No: Non tender (Right lower quadrant tenderness With minimal palpation. Equivocal McBurney's. No CVA or flank tenderness.) Results - Vitals Vitals: Vital Signs - 24 hr 08/15/21 08/15/21 08/15/21 14:10 14:32 17:15 Temperature 36.8 C 36.5 C Heart Rate 100 85 Respiratory 24 20 16 Rate Blood Pressure 176/94 H 164/88 H 160/78 H O2 Saturation 91 L 98 97 Oxygen O2 Source Nasal cannula - Labs Labs: Laboratory Tests 08/15/21 08/15/21 08/15/21 14:30 14:30 14:52 WBC 13.0 H RBC 4.70 Hgb 13.4 Hct 44.0 MCV 93.6 MCH 28.5 MCHC 30.5 L RDW 12.5 Plt Count 324 MPV 9.5 Neut # (Auto) 9.0 H Lymph # (Auto) 3.0 [place] # (Auto) 0.8 Eos # (Auto) 0.1 Baso # (Auto) 0.1 Absolute Nucleated RBC 0.00 Nucleated RBC % 0.0 Sodium 142 Potassium 3.9 Chloride 100 L Carbon Dioxide 30 Anion Gap 12.0 BUN 15 Creatinine 0.7 Estimated GFR (MDRD) 80 L Glucose 113 H Calcium 9.3 Total Bilirubin 0.6 AST 18 ALT 10 Alkaline Phosphatase 78 Total Protein 7.0 Albumin 4.1 Globulin 2.9 Albumin/Globulin Ratio 1.4 Lipase 33 Urine Color YELLOW Urine Clarity CLEAR Urine pH 7.0 Ur Specific [place] 1.010 Urine Protein NEGATIVE Urine Glucose (UA) NEGATIVE Urine Ketones NEGATIVE Urine Occult Blood NEGATIVE Urine Nitrite NEGATIVE Urine Bilirubin NEGATIVE Urine Urobilinogen 0.2 (NORMAL) Ur Leukocyte Esterase NEGATIVE Ur Microscopic Review NOT INDICATED Urine Culture Comments NOT INDICATED - Rads (name of study) CT abd Radiology: Final report received (Prominent right-sided hydroureter and hydronephrosis with a faintly seen 3 mm stone at the right UVJ. Nonobstructing bilateral renal stones are seen. Distal abdominal aneurysm measuring 3.6 cm. Previously measured at 3.1) PD MEDICAL DECISION MAKING - ED course Complexity details: reviewed results, re-evaluated patient, considered differential, d/w patient, d/w family ED course: 80-year-old female presents emergency department for evaluation of acute right flank pain that migrated to her right lower quadrant began today. She presents with some rebound tenderness in the right lower quadrant. Screening labs showed a mild leukocytosis of 13,000. She had preserved renal function and urine showed no signs of infection or hematuria. Screening CT scan did show multiple nonobstructing renal stones. She does however have a 3 mm stone at the UVJ junction. There is some associated hydronephrosis and hydroureter. Patient did have good symptom control with Dilaudid. She will be discharged with prescription for Flomax, ibuprofen and limited amount of oxycodone. Advise very close follow-up with PCP for referral to urology. Emergent return precautions were discussed for worsening symptoms. CT scan did make incidental note of previously known abdominal aneurysm now mildly increased in size to 3.6 cm from the baseline of 3.1. I am prescribing a short course of short-acting opioid pain medication for this patient. I have reviewed the patients FLUTE GRINDER and no concerning findings were noted. I have discussed that the opioids are for short term therapy only, and will not be refilled from the ED. Departure - Departure Disposition: Home, Self Care Clinical Impression: Calculus of ureterovesical junction (UVJ), Hydroureter, right, AAA (abdominal aortic aneurysm) without rupture Condition: Stable Record reviewed to determine appropriate education?: Yes Instructions: Hydronephrosis Ch Follow-Up: Gina Pete PA-C [Primary Care Provider] - Prescriptions: Tamsulosin HCl [Flomax] 0.4 mg PO DAILY #30 cap oxyCODONE [Roxicodone] 5 mg PO TID PRN #20 tablet PRN Reason: Pain Ondansetron Odt [Zofran Odt] 4 mg TL Q6H PRN #10 tablet PRN Reason: Nausea / Vomiting Comments: Kat was seen today in the emergency department for pain on the right side of her abdomen. Her screening labs did not show any worrisome findings. There is no infection in her urine. A CT scan did show multiple small kidney stones. It also showed a 3 mm stone at the junction to her bladder. This is small enough that I expect it will pass but right now it is causing some swelling of the ureter and kidney. In order to help it pass I have sent a prescription for medication called Flomax to the pharmacy. She should take this every day. Use it cautiously as it may make her dizzy. In general kidney stones are best managed with an NSAID medication like ibuprofen or naproxen. If she can take this medication safely I recommend she do it once or twice a day. For severe pain I have sent a limited prescription for oxycodone to the pharmacy. Please discuss this ED visit with her primary care provider. She should be referred as soon as possible to a Urologist. If at any point she has worsening pain, uncontrolled vomiting, fevers then please return immediately to the ER for repeat evaluation. The CT scan did redemonstrate the previously known abdominal aneurysm. It was p reviously measured at 3.1 cm. Today it measures 3.6 cm. This is a mild increase in size. I do recommend continued follow-up with your primary care provider. This should be reevaluated in 6 to 12 months to ensure that it is not increasing in size I am prescribing a short course of narcotic pain medication for you. These are potentially dangerous and addictive medications that should be used carefully. These medications may constipate you. Take an mbwv-irv-pzlaoap stool softener (docusate) twice daily with plenty of water while taking these medications. If you go 24 hours without a bowel movement, take [id number] miralax, per package instructions. Do not drink or drive while taking these medications. If you received narcotic or sedating medications while in the emergency department, do not drive for 24 hours. Store this medication in a safe, secure place and out of reach of children. It is a violation of federal law to give or sell this medication to another person or to use in a manner other than prescribed. The ED will not refill narcotic prescriptions, including prescriptions lost or stolen. To dispose of unwanted medications: 1. [facility] at [address] in [place] has a medication drop box. They accept prescription medications (in pill form) Sunday through Sunday 9:00 a.m. to 5:00 p.m. 2. [facility] [employer] accepts prescription medications (in pill form only) for disposal year round. Call for more information. 3. Contact the [facility] for the next [facility] sponsored prescription drug collection event. , [phone], or [phone]; Note that many narcotic pain relievers also contain Tylenol/acetaminophen. Please ensure that your total dose of acetaminophen from all sources does not exceed 3 g (3000 mg) per day.
[2021-08-15 14:37] LABS: BASOPHILS # (AUTO) 0.1 10^3/uL (0.0-0.1); BASOPHILS % (AUTO) 0.5 %; EOSINOPHILS # (AUTO) 0.1 10^3/uL (0.0-0.7); EOSINOPHILS % (AUTO) 0.4 %; HGB - HEMOGLOBIN 13.4 g/dL (12.0-16.0); LYMPHOCYTES % (AUTO) 23.2 %; MEAN CORPUSCULAR HEMOGLOBIN 28.5 pg (27.0-31.0); MEAN CORPUSCULAR HGB CONC 30.5 g/dL (32.0-36.0); MEAN CORPUSCULAR VOLUME 93.6 fL (81.0-99.0); MEAN PLATELET VOLUME 9.5 fL (7.9-10.8); MONOCYTES # (AUTO) 0.8 10^3/uL (0.0-1.0); MONOCYTES % (AUTO) 6.2 %; NEUTROPHILS % (AUTO) 69.5 %; PLT - PLATELET COUNT 324 10^3/uL (130-450); RED CELL DISTRIBUTION WIDTH 12.5 % (12.0-15.0)
[2021-08-15 14:48] LABS: ALBUMIN 4.1 g/dL (3.2-5.5); ALBUMIN/GLOBULIN RATIO 1.4 (1.0-2.2); BILIRUBIN,TOTAL 0.6 mg/dL (0.2-1.0); CALCIUM 9.3 mg/dL (8.5-10.3); CREATININE 0.7 mg/dL (0.4-1.0); POTASSIUM 3.9 mmol/L (3.5-5.0)
[2021-08-15] MEDS ORDERED: ONDANSETRON 4 MG/2 ML VIAL IVP STA ×2 (14:55→17:33)
[2021-08-15 15:08] LABS: BILIRUBIN,URINE NEGATIVE (NEGATIVE); GLUCOSE, URINE (UA) NEGATIVE (NEGATIVE); KETONES,URINE (UA) NEGATIVE (NEGATIVE); LEUKOCYTE ESTERASE, URINE NEGATIVE (NEGATIVE); NITRITE,URINE NEGATIVE (NEGATIVE); OCCULT BLOOD,URINE NEGATIVE (NEGATIVE); PROTEIN,URINE NEGATIVE (NEGATIVE); UROBILINOGEN,URINE 0.2 (NORMAL) E.U./dL (NORMAL)
[2021-08-15 15:14] LABS: CLARITY,URINE CLEAR (CLEAR)
--- NOTE | 2021-08-15 16:00 | CT Report ---
PROCEDURE: Abdomen/Pelvis WO INDICATIONS: right flank pain TECHNIQUE: Noncontrast 5 mm thick sections acquired from the diaphragms to the symphysis. 5 mm coronal and sagi ttal reformats were then performed. For radiation dose reduction, the following was used: automated exposure control, adjustment of mA and/or kV according to patient size. COMPARISON: 03/22/2017 FINDINGS: Image quality: Excellent. ABDOMEN: Lung bases: Emphysematous changes can be seen at the lung bases. Heart size is normal. At least mode rate coronary artery calcification is seen. Solid organs: Liver and spleen are normal in size. Gallbladder demonstrates layering gallstones wit hin its lumen. No additional CT findings of cholecystitis can be seen. Pancreas is normal in contour s. No adrenal nodules. There is a faintly seen right ureterovesicular junction, as on series 6 image 24 and on series 3 imag e 71, which measures up to 3 mm. There is prominent right-sided hydroureter and hydronephrosis, with moderate right-sided perinephric fat stranding. Obstructing bilateral renal stones are seen, which measure up to 2 mm on the right and up to 4 mm on the left. No left-sided hydronephrosis is seen. Stone at the Peritoneum and bowel: Unenhanced bowel loops demonstrate normal wall thickness and caliber. No free fluid or air. Generous colonic diverticulosis is seen, which is worst distally. Nodes and vessels: No retroperitoneal or mesenteric adenopathy by size criteria. The IVC demonstrate s normal caliber. There is a distal abdominal aortic aneurysm seen measuring 3.6 cm AP. Miscellaneous: No ventral hernias. PELVIS: Genitourinary: Bladder wall thickness is normal. This patient is status post hysterectomy. No adnex al masses can be seen. Miscellaneous: No inguinal hernias or adenopathy. Bones: No suspicious bony lesions. No vertebral body compression fractures. Mild dextroconvex scoli otic curvature is seen. Relatively prominent lumbar spine degenerative changes are seen, with milde r degenerative changes elsewhere. IMPRESSION: There is prominent right-sided hydroureter and hydronephrosis, with a faintly seen 3 mm stone at the right ureterovesicular junction. Nonobstructing bilateral renal stones are seen. Mild distal abdominal aneurysm, measuring 3.6 cm AP. In 2018, this measured 3.1 cm AP. Incidental note is made of: Emphysematous changes at the lung bases At least moderate coronary artery calcification Small hiatal hernia Layering gallstones Colonic diverticulosis, without findings of active diverticulitis. Relatively prominent lumbar spine degenerative change Reviewed by: Dejuan Clinton MD on 08/15/2021 2:59 PM AKLAYNE Approved by: Dejuan Clinton MD on 08/15/2021 2:59 PM MARKIE Station ID: [id number]
[2021-08-15] MEDS ORDERED: oxyCODONE/ACET 5/325 Prepack 4 PO STA (17:05)
[2021-08-15 17:51] VITALS: BP 146/72
== END 2021-08-15 18:09 | disposition home or self-care (01) ==
LOC: EDUNIT# → ED 13:58
DX: N13.2 Hydronephrosis with renal and ureteral calculous obstruction (principal); I71.4 Abdominal aortic aneurysm, without rupture
CPT/HCPCS: 36415; 74176; 80053; 81003; 83690; 85025; 96374; 96375; 96376; 99284; J1170; 81001; 87086

== ENCOUNTER 2022-01-30 10:51 | Outpatient (CLI) | payer MEDICARE, OTHER ==
[2022-01-30 18:35] LABS: ALBUMIN 3.7 g/dL (3.2-5.5); ALBUMIN/GLOBULIN RATIO 1.2 (1.0-2.2); ALKALINE PHOSPHATASE 96 IU/L (42-121); ALT ALANINE AMINOTRANSFERASE < 10 IU/L (10-60); AST ASPARTATE AMINOTRANSFERASE 15 IU/L (10-42); BILIRUBIN,TOTAL 0.4 mg/dL (0.2-1.0); BUN - BLOOD UREA NITROGEN 12 mg/dL (6-20); CARBON DIOXIDE - CO2 34 mmol/L (21-32); CHLORIDE 102 mmol/L (101-111); CHOL/HDL RATIO 2.7 (<4.4); CHOLESTEROL 112 mg/dL; CREATININE 0.6 mg/dL (0.4-1.0); GFR - MDRD 96 (>89); GLUCOSE 101 mg/dL (70-100); HDL CHOLESTEROL 42 mg/dL; LDL CHOLESTEROL,CALCULATED 43 mg/dL; POTASSIUM 3.9 mmol/L (3.5-5.0); SODIUM 141 mmol/L (135-145); TOTAL PROTEIN 6.7 g/dL (6.7-8.2); TRIGLYCERIDES 136 mg/dL; VLDL CHOLESTEROL 27 mg/dL
[2022-01-30 21:30] LABS: ESTIMATED AVERAGE GLUCOSE 120 mg/dL (70-100); HEMOGLOBIN A1c% 5.8 % (4.27-6.07)
== END 2022-01-30 10:52 | disposition home or self-care (01) ==
LOC: LAB.N 10:51
PROVIDERS: ATTEND Physician Assistant Medical
DX: E78.5 Hyperlipidemia, unspecified (principal); R73.9 Hyperglycemia, unspecified
CPT/HCPCS: 36415; 80053; 80061; 83036; 83721

== ENCOUNTER 2022-03-06 14:40 | Outpatient (CLI) | payer MEDICARE, OTHER | END 2022-03-06 14:41 | disposition critical access hospital (66) | LOC: EMS 14:40 | DX: R06.02 Shortness of breath (principal); R05.9 Cough, unspecified; Z99.81 Dependence on supplemental oxygen; J44.9 Chronic obstructive pulmonary disease, unspecified | CPT/HCPCS: A0425; A0427 ==

== ENCOUNTER 2022-03-06 15:03 | Emergency (ER) | payer MEDICARE, OTHER ==
--- NOTE | 2022-03-06 15:48 | XRAY Report ---
PROCEDURE: Chest 1 View X-Ray INDICATIONS: cough, COPD TECHNIQUE: One view of the chest was acquired. COMPARISON: None. FINDINGS: Surgical changes and devices: None. Lungs and pleura: No pleural effusions or pneumothorax. Chronic left basilar opacity consistent with scarring. Mild interstitial pulmonary edema superimposed on chronic interstitial change. Mediastinum: Mediastinal contours appear normal. Heart size is normal. Bones and chest wall: No suspicious bony lesions. Overlying soft tissues appear unremarkable. IMPRESSION: Mild congestive heart failure exacerbation. Reviewed by: Zheng Verdin MD on 03/06/2022 3:47 PM PST Approved by: Zheng Verdin MD on 03/06/2022 3:47 PM PST Station ID: [id number]
[2022-03-06 16:25] LABS: CORONAVIRUS 229E-RESP PCR NOT DETECTED; CORONAVIRUS HKU1-RESP PCR NOT DETECTED; CORONAVIRUS NL63-RESP PCR NOT DETECTED; CORONAVIRUS OC43-RESP PCR NOT DETECTED; HUMAN METAPNEUMOVIRUS NOT DETECTED; INFLUENZA A- RESP PCR PANEL NOT DETECTED; INFLUENZA B - RESP PCR PANEL NOT DETECTED; PARAINFLUENZA VIRUS 1 NOT DETECTED; PARAINFLUENZA VIRUS 2 NOT DETECTED; PARAINFLUENZA VIRUS 3 NOT DETECTED; PARAINFLUENZA VIRUS 4 NOT DETECTED; RHINOVIRUS/ENTEROVIRUS NOT DETECTED; SARS-CoV-2 -RESP PCR PANEL NOT DETECTED
[2022-03-06 16:26] LABS: B. PARAPERTUSSIS- RESP PCR PAN NOT DETECTED; B. PERTUSSIS- RESP PCR PANEL NOT DETECTED; C. PNEUMONIAE- RESP PCR PANEL NOT DETECTED; M. PNEUMONIAE- RESP PCR PANEL NOT DETECTED; RSV- RESP PCR PANEL NOT DETECTED
--- NOTE | 2022-03-06 16:35 | ED Physician Documentation ---
PD HPI DYSPNEA - Stated complaint Stated Complaint: SOA/COUGH - Chief complaint Chief Complaint: Resp - History obtained from History obtained from: Patient - History of Present Illness Pain level max: 0 Pain level now: 0 Inciting event(s): URI Improved by: O2 Associated symptoms: Cough. No: Fever, Hemoptysis, Wheezing, Chest pain / discomfort, Palpitations, Diaphoresis - Additional information Additional information: Patient is an 81-year-old female with a history of COPD who presents to the emergency department with dyspnea and coughing for the past 1 week. She improved with nebulizer treatment in the ambulance. She states that she has not had any fevers or chills. No pain. She has had mild rhinorrhea and congestion. She is on 4 L of oxygen at baseline at home. Review of Systems Constitutional: denies: Fever, Chills GI: denies: Vomiting, Diarrhea Skin: denies: Rash Neurologic: denies: Headache PD PAST MEDICAL HISTORY - Past Medical History Cardiovascular: Hypertension Respiratory: Asthma, COPD, Pneumonia, Shortness of breath, Other Neuro: None, CVA Endocrine/Autoimmune: None GI: None PROVER: None : Kidney stones HEENT: None Psych: None Musculoskeletal: Chronic back pain Derm: None - Past Surgical History Past Surgical History: Yes - Present Medications Home Medications: Ambulatory Orders Medication Instructions Recorded Confirmed Tiotropium [Spiriva] 1 puffs INH DAILY 10/27/12 03/21/19 Acetaminophen [Tylenol] 650 mg PO DAILY 03/21/19 03/21/19 Albuterol Sulfate [Proventil Hfa 1 - 2 puffs INH Q4H PRN 03/21/19 03/21/19 Inhaler] Aspirin [Aspirin EC] 81 mg PO DAILY 03/21/19 03/21/19 Diltiazem HCl [Diltiazem ER] 240 mg PO DAILY 03/21/19 03/21/19 Liane-C 1,000 mg PO DAILY 03/21/19 Fluticasone/Salmeterol [Advair 1 each IH BID 03/21/19 03/21/19 500-50 Diskus] Furosemide [Lasix] 40 mg PO DAILY 03/21/19 03/21/19 Losartan [Cozaar] 50 mg PO BID 03/21/19 03/21/19 Potassium Chloride [Klor-Con 10] 10 meq PO DAILY 03/21/19 03/21/19 terbinafine HCL [Terbinafine HCl] 250 mg PO DAILY 03/21/19 03/21/19 Acyclovir [Zovirax] 800 mg PO 5XD 7 Days #35 tablet 04/26/19 Azithromycin [Zithromax] 250 mg PO DAILY #4 tablet 06/13/19 Cefdinir 300 mg PO BID #20 capsule 06/13/19 Ondansetron Odt [Zofran Odt] 4 mg TL Q6H PRN #10 tablet 08/15/21 Tamsulosin HCl [Flomax] 0.4 mg PO DAILY #30 cap 08/15/21 oxyCODONE [Roxicodone] 5 mg PO TID PRN #20 tablet 08/15/21 predniSONE [Deltasone] 40 mg PO DAILY #10 tablet 03/06/22 - Allergies Allergies/Adverse Reactions: Allergies Allergy/AdvReac Type Severity Reaction Status Date / Time Penicillins Allergy Intermediate Hives, Verified 03/06/22 15:16 swelling aspirin Allergy Mild Rash Verified 03/06/22 15:16 piroxicam [From Feldene] Allergy Mild Rash Verified 03/06/22 15:16 meperidine [From Demerol] Allergy Unknown Verified 03/06/22 15:16 - Social History Does the pt smoke?: No Smoking Status: Never smoker Does the pt drink ETOH?: No Does the pt have substance abuse?: No - Immunizations Immunizations are current?: Yes - POLST Patient has POLST: No PD ED PE NORMAL - Vitals Vital signs reviewed: Yes - General General: Alert and oriented X 3, No acute distress - HEENT HEENT: PERRL, Moist mucous membranes - Neck Neck: Supple, no meningeal sign - Cardiac Cardiac: RRR, Strong equal pulses - Respiratory Respiratory: No respiratory distress, Other (Minimal wheeze) - Abdomen Abdomen: Soft, Non tender, Non distended - Derm Derm: Warm and dry, No rash - Extremities Extremities: No edema - Neuro Neuro: Alert and oriented X 3 - Psych Psych: Normal mood, Normal affect Results - Vitals Vitals: Vital Signs - 24 hr 03/06/22 03/06/22 03/06/22 15:13 17:16 19:00 Temperature 37.6 C 37.2 C 36.8 C Heart Rate 112 H 84 79 Respiratory 20 18 16 Rate Blood Pressure 149/76 H 133/67 H 137/87 H O2 Saturation 98 97 98 If not protocol 4 : Oxygen Flow, liters/minute Oxygen O2 Source Nasal cannula Oxygen Flow Rate 4 - Labs Labs: Laboratory Tests 03/06/22 03/06/22 03/06/22 15:27 16:42 16:42 WBC 13.7 H RBC 4.14 L Hgb 11.9 L Hct 39.4 MCV 95.2 MCH 28.7 MCHC 30.2 L RDW 12.8 Plt Count 345 MPV 9.3 Neut # (Auto) 11.6 H Lymph # (Auto) 0.7 L [place] # (Auto) 1.3 H Eos # (Auto) 0.0 Baso # (Auto) 0.1 Absolute Nucleated RBC 0.00 Nucleated RBC % 0.0 Sodium 141 Potassium 4.0 Chloride 96 L Carbon Dioxide 36 H Anion Gap 9.0 BUN 12 Creatinine 0.7 Estimated GFR (MDRD) 80 L Glucose 179 H Calcium 9.1 Total Bilirubin 0.5 AST 17 ALT 12 Alkaline Phosphatase 87 B-Natriuretic Peptide Total Protein 6.8 Albumin 3.1 L Globulin 3.7 Albumin/Globulin Ratio 0.8 L Nasal Adenovirus (PCR) NOT DETECTED Nasal B. parapertussis DNA (PCR) NOT DETECTED Nasal Coronavir 229E PCR NOT DETECTED Nasal Coronavir HKU1 PCR NOT DETECTED Nasal Coronavir NL63 PCR NOT DETECTED Nasal Coronavir OC43 PCR NOT DETECTED Nasal Enterovir/Rhinovir PCR NOT DETECTED Nasal Influenza B PCR NOT DETECTED Nasal Influenza A PCR NOT DETECTED Nasal Parainfluen 1 PCR NOT DETECTED Nasal Parainfluen 2 PCR NOT DETECTED Nasal Parainfluen 3 PCR NOT DETECTED Nasal Parainfluen 4 PCR NOT DETECTED Nasal RSV (PCR) NOT DETECTED Nasal B.pertussis DNA PCR NOT DETECTED Nasal C.pneumoniae (PCR) NOT DETECTED [place] Human Metapneumo PCR NOT DETECTED Nasal M.pneumoniae (PCR) NOT DETECTED Nasal SARS-CoV-2 (PCR) NOT DETECTED 03/06/22 16:42 WBC RBC Hgb Hct MCV MCH MCHC RDW Plt Count MPV Neut # (Auto) Lymph # (Auto) [place] # (Auto) Eos # (Auto) Baso # (Auto) Absolute Nucleated RBC Nucleated RBC % Sodium Potassium Chloride Carbon Dioxide Anion Gap BUN Creatinine Estimated GFR (MDRD) Glucose Calcium Total Bilirubin AST ALT Alkaline Phosphatase B-Natriuretic Peptide 157 H Total Protein Albumin Globulin Albumin/Globulin Ratio Nasal Adenovirus (PCR) Nasal B. parapertussis DNA (PCR) Nasal Coronavir 229E PCR Nasal Coronavir HKU1 PCR Nasal Coronavir NL63 PCR Nasal Coronavir OC43 PCR Nasal Enterovir/Rhinovir PCR Nasal Influenza B PCR Nasal Influenza A PCR Nasal Parainfluen 1 PCR Nasal Parainfluen 2 PCR Nasal Parainfluen 3 PCR Nasal Parainfluen 4 PCR Nasal RSV (PCR) Nasal B.pertussis DNA PCR Nasal C.pneumoniae (PCR) [place] Human Metapneumo PCR Nasal M.pneumoniae (PCR) Nasal SARS-CoV-2 (PCR) - Rads (name of study) Chest x-ray Radiology: Final report received, See rad report PD Medical Decision Making - ED course Complexity details: reviewed results, re-evaluated patient, considered differential, d/w patient, d/w family ED course: Patient is well-appearing, nontoxic. No increased oxygen requirement. Appears to have a COPD exacerbation. No fevers. No evidence of pneumonia. No indication for antibiotics. Will place on steroids for home. Patient has nebulizers at home. She will continue these. We will have her follow-up with her doctor for further care. Patient counseled regarding signs and symptoms for which I believe and urgent re-evaluation would be necessary. Patient with good understanding of and agreement to plan and is comfortable going home at this time This document was made in part using voice recognition software. While efforts are made to proofread this document, sound alike and grammatical errors may occur. Departure - Departure Disposition: 01 Home, Self Care Clinical Impression: COPD exacerbation Condition: Good Instructions: ED COPD Flare Follow-Up: your,doctor in 1 week [Other] - Within 1 week Prescriptions: predniSONE [Deltasone] 40 mg PO DAILY #10 tablet Comments: Please follow-up with your doctor for further care. We will place you on steroids. Your prescriptions were sent to [facility]. Your COVID test is negative. It does not appear that you have pneumonia on chest x-ray. Your COVID test and flu test are negative. Discharge Date/Time: 03/06/22 19:24
[2022-03-06 16:50] LABS: BASOPHILS # (AUTO) 0.1 10^3/uL (0.0-0.1); BASOPHILS % (AUTO) 0.5 %; EOSINOPHILS % (AUTO) 0.1 %; HCT - HEMATOCRIT 39.4 % (37.0-47.0); HGB - HEMOGLOBIN 11.9 g/dL (12.0-16.0); LYMPHOCYTES # (AUTO) 0.7 10^3/uL (1.5-3.5); LYMPHOCYTES % (AUTO) 5.1 %; MEAN CORPUSCULAR HEMOGLOBIN 28.7 pg (27.0-31.0); MEAN CORPUSCULAR HGB CONC 30.2 g/dL (32.0-36.0); MEAN CORPUSCULAR VOLUME 95.2 fL (81.0-99.0); MEAN PLATELET VOLUME 9.3 fL (7.9-10.8); MONOCYTES # (AUTO) 1.3 10^3/uL (0.0-1.0); MONOCYTES % (AUTO) 9.3 %; NEUTROPHILS # (AUTO) 11.6 10^3/uL (1.5-6.6); NEUTROPHILS % (AUTO) 84.7 %; PLT - PLATELET COUNT 345 10^3/uL (130-450); RED BLOOD COUNT 4.14 10^6/uL (4.20-5.40); RED CELL DISTRIBUTION WIDTH 12.8 % (12.0-15.0); WHITE BLOOD COUNT 13.7 x10^3/uL (4.8-10.8)
[2022-03-06 17:02] LABS: ALBUMIN 3.1 g/dL (3.2-5.5); ALBUMIN/GLOBULIN RATIO 0.8 (1.0-2.2); BILIRUBIN,TOTAL 0.5 mg/dL (0.2-1.0); CALCIUM 9.1 mg/dL (8.5-10.3); CREATININE 0.7 mg/dL (0.4-1.0); TOTAL PROTEIN 6.8 g/dL (6.7-8.2)
[2022-03-06] MEDS: predniSONE 20 MG TABLET PO STA (18:59)
[2022-03-06 19:23] VITALS: BP 137/87
== END 2022-03-06 19:24 | disposition home or self-care (01) ==
LOC: EDUNIT# → ED 15:03
DX: J44.1 Chronic obstructive pulmonary disease with (acute) exacerbation (principal); Z99.81 Dependence on supplemental oxygen; Z20.822 Contact with and (suspected) exposure to COVID-19
CPT/HCPCS: 36415; 71045; 80053; 83880; 85025; 87633; 99284; J7512

== ENCOUNTER 2022-05-19 09:32 | Outpatient (CLI) | payer MEDICARE, OTHER | END 2022-05-19 09:33 | disposition critical access hospital (66) | LOC: EMS 09:32 | DX: M25.552 Pain in left hip (principal); W01.0XXA Fall on same level from slipping, tripping and stumbling without subsequent striking against object, initial encounter; Y92.049 Unspecified place in boarding-house as the place of occurrence of the external cause; R06.02 Shortness of breath; R05.9 Cough, unspecified; R09.3 Abnormal sputum; J44.9 Chronic obstructive pulmonary disease, unspecified | CPT/HCPCS: A0425; A0427 ==

== ENCOUNTER 2022-05-19 09:55 | Emergency (ER) | payer MEDICARE, OTHER ==
--- NOTE | 2022-05-19 10:25 | ED Physician Documentation ---
PD HPI DYSPNEA - Stated complaint Stated Complaint: SOA/FALL - Chief complaint Chief Complaint: Resp - History obtained from History obtained from: Patient - History of Present Illness Timing - onset: How many days ago (2) Timing - onset during: Rest Timing - duration: Days (2) Timing - details: Gradual onset, Still present Inciting event(s): URI Improved by: O2, Inhaler/neb Worsened by: Exertion, Coughing Associated symptoms: Cough, Wheezing. No: Fever Similar symptoms before: Diagnosis (COPD pneumonia) Recently seen: Not recently seen - Additional information Additional information: 81-year-old Tiffany Bethea with a history of COPD presents to the emergency department with increasing shortness of breath after a fall out of her bed yesterday morning landing onto her left side and including some pain to her left hip. She was able to ambulate with assistance. She spent the day in her chair yesterday was assisted back to her bed and continues to have some pain in her hip. Her breathing is worse than normal for her. She has been coughing up some yellow and green phlegm for the past several days and her shortness of breath is worse. She received a DuoNeb treatment in the ambulance in route to the hospital with some improvement. She states that her nebulizers have been helping and that her oxygen has helped as well. Review of Systems Constitutional: denies: Fever Ears: denies: Ear pain Nose: denies: Congestion Throat: denies: Sore throat Cardiac: denies: Chest pain / pressure, Palpitations Respiratory: reports: Dyspnea, Cough, Wheezing GI: denies: Abdominal Pain, Nausea, Vomiting, Constipation, Diarrhea : denies: Dysuria, Frequency Skin: denies: Rash Musculoskeletal: reports: Extremity pain, Joint pain, Pain with weight bearing. 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 : Kidney stones HEENT: None Psych: None Musculoskeletal: Chronic back pain Derm: None - Past Surgical History Past Surgical History: Yes - Present Medications Home Medications: Ambulatory Orders Medication Instructions Recorded Confirmed Tiotropium [Spiriva] 1 puffs INH DAILY 10/27/12 03/21/19 Acetaminophen [Tylenol] 650 mg PO DAILY 03/21/19 03/21/19 Albuterol Sulfate [Proventil Hfa 1 - 2 puffs INH Q4H PRN 03/21/19 03/21/19 Inhaler] Aspirin [Aspirin EC] 81 mg PO DAILY 03/21/19 03/21/19 Diltiazem HCl [Diltiazem ER] 240 mg PO DAILY 03/21/19 03/21/19 Liane-C 1,000 mg PO DAILY 03/21/19 Fluticasone/Salmeterol [Advair 1 each IH BID 03/21/19 03/21/19 500-50 Diskus] Furosemide [Lasix] 40 mg PO DAILY 03/21/19 03/21/19 Losartan [Cozaar] 50 mg PO BID 03/21/19 03/21/19 Potassium Chloride [Klor-Con 10] 10 meq PO DAILY 03/21/19 03/21/19 terbinafine HCL [Terbinafine HCl] 250 mg PO DAILY 03/21/19 03/21/19 Acyclovir [Zovirax] 800 mg PO 5XD 7 Days #35 tablet 04/26/19 Azithromycin [Zithromax] 250 mg PO DAILY #4 tablet 06/13/19 Cefdinir 300 mg PO BID #20 capsule 06/13/19 Ondansetron Odt [Zofran Odt] 4 mg TL Q6H PRN #10 tablet 08/15/21 Tamsulosin HCl [Flomax] 0.4 mg PO DAILY #30 cap 08/15/21 oxyCODONE [Roxicodone] 5 mg PO TID PRN #20 tablet 08/15/21 predniSONE [Deltasone] 40 mg PO DAILY #10 tablet 03/06/22 - Allergies Allergies/Adverse Reactions: Allergies Allergy/AdvReac Type Severity Reaction Status Date / Time Penicillins Allergy Intermediate Hives, Verified 03/06/22 15:16 swelling aspirin Allergy Mild Rash Verified 03/06/22 15:16 piroxicam [From Feldene] Allergy Mild Rash Verified 03/06/22 15:16 meperidine [From Demerol] Allergy Unknown Verified 03/06/22 15:16 - Social History Does the pt smoke?: No Smoking Status: Never smoker Does the pt drink ETOH?: No Does the pt have substance abuse?: No - Immunizations Immunizations are current?: Yes - POLST Patient has POLST: No PD ED PE NORMAL - Vitals Vital signs reviewed: Yes (tachy, tachypneic, hypertensive and hypoxic) - General General: Alert and oriented X 3, No acute distress, Well developed/nourished - HEENT HEENT: Atraumatic, PERRL, EOMI, Other (dry mucous membranes ) - Neck Neck: Supple, no meningeal sign, No bony TTP - Cardiac Cardiac: No murmur, Other (tachy to 120) - Respiratory Respiratory: Other (tachypneic at rest with diminished breath sounds and scattered wheezes. ) - Abdomen Abdomen: Soft, Non tender - Back Back: No CVA TTP, No spinal TTP - Derm Derm: Normal color, Warm and dry, No rash - Extremities Extremities: No deformity, Other (point tenderness to the trochanter with pain increase with passive ROM. No shortening or external rotation .) Results - Vitals Vitals: Vital Signs - 24 hr 05/19/22 05/19/22 05/19/22 10:00 10:59 11:07 Temperature 36.9 C Heart Rate 124 H 100 101 H Respiratory 26 H 16 16 Rate Blood Pressure 163/82 H 138/93 H O2 Saturation 86 L 100 If not protocol 5 5 : Oxygen Flow, liters/minute 05/19/22 05/19/22 05/19/22 11:30 12:26 12:30 Temperature Heart Rate 99 101 H 32 L Respiratory 20 20 40 H Rate Blood Pressure 141/73 H 132/67 H 128/66 O2 Saturation 99 99 99 If not protocol 5 5 5 : Oxygen Flow, liters/minute 05/19/22 05/19/22 05/19/22 13:00 13:30 14:00 Temperature Heart Rate 98 97 94 Respiratory 36 H 17 15 Rate Blood Pressure 146/70 H 113/93 H 131/74 H O2 Saturation 98 99 98 If not protocol 5 5 5 : Oxygen Flow, liters/minute 05/19/22 05/19/22 05/19/22 14:30 15:00 15:30 Temperature Heart Rate 93 94 94 Respiratory 18 16 18 Rate Blood Pressure 117/70 138/75 H 137/74 H O2 Saturation 98 98 99 If not protocol 5 5 : Oxygen Flow, liters/minute 05/19/22 05/19/22 05/19/22 16:00 16:30 17:00 Temperature Heart Rate 100 97 100 Respiratory 18 17 18 Rate Blood Pressure 145/75 H 142/74 H 135/80 H O2 Saturation 98 97 95 If not protocol 5 5 5 : Oxygen Flow, liters/minute 05/19/22 05/19/22 05/19/22 17:30 18:00 18:30 Temperature Heart Rate 96 93 94 Respiratory 17 18 16 Rate Blood Pressure 155/75 H 143/77 H 150/73 H O2 Saturation 98 95 98 If not protocol 5 5 5 : Oxygen Flow, liters/minute 05/19/22 19:54 Temperature Heart Rate 98 Respiratory 16 Rate Blood Pressure 153/83 H O2 Saturation 95 If not protocol 4 : Oxygen Flow, liters/minute Oxygen O2 Source Nasal cannula Oxygen Flow Rate 5 - Labs Labs: Laboratory Tests 05/19/22 05/19/22 05/19/22 10:38 10:41 10:57 WBC 12.6 H RBC 4.63 Hgb 12.8 Hct 43.4 MCV 93.7 MCH 27.6 MCHC 29.5 L RDW 13.2 Plt Count 170 MPV 9.9 Neut # (Auto) 10.4 H Lymph # (Auto) 1.4 L Lipscomb # (Auto) 0.7 Eos # (Auto) 0.0 Baso # (Auto) 0.0 Absolute Nucleated RBC 0.00 Nucleated RBC % 0.0 Sodium Potassium Chloride Carbon Dioxide Anion Gap BUN Creatinine Estimated GFR (MDRD) Glucose Lactic Acid Calcium Total Bilirubin AST ALT Alkaline Phosphatase B-Natriuretic Peptide 72 Total Protein Albumin Globulin Albumin/Globulin Ratio Lipase Urine Color Urine Clarity Urine pH Ur Specific Emmet Urine Protein Urine Glucose (UA) Urine Ketones Urine Occult Blood Urine Nitrite Urine Bilirubin Urine Urobilinogen Ur Leukocyte Esterase Urine RBC Urine WBC Ur Squamous Epith Cells Urine Bacteria Urine Casts Ur Microscopic Review Urine Culture Comments Nasal Adenovirus (PCR) NOT DETECTED Nasal B. parapertussis DNA (PCR) NOT DETECTED Nasal Coronavir 229E PCR NOT DETECTED Nasal Coronavir HKU1 PCR NOT DETECTED Nasal Coronavir NL63 PCR NOT DETECTED Nasal Coronavir OC43 PCR NOT DETECTED Nasal Enterovir/Rhinovir PCR NOT DETECTED Nasal Influenza B PCR NOT DETECTED Nasal Influenza A PCR NOT DETECTED Nasal Parainfluen 1 PCR NOT DETECTED Nasal Parainfluen 2 PCR NOT DETECTED Nasal Parainfluen 3 PCR NOT DETECTED Nasal Parainfluen 4 PCR DETECTED A Nasal RSV (PCR) NOT DETECTED Nasal B.pertussis DNA PCR NOT DETECTED Nasal C.pneumoniae (PCR) NOT DETECTED Ashutosh Human Metapneumo PCR NOT DETECTED Nasal M.pneumoniae (PCR) NOT DETECTED Nasal SARS-CoV-2 (PCR) NOT DETECTED 05/19/22 05/19/22 05/19/22 10:57 10:57 13:41 WBC RBC Hgb Hct MCV MCH MCHC RDW Plt Count MPV Neut # (Auto) Lymph # (Auto) Lipscomb # (Auto) Eos # (Auto) Baso # (Auto) Absolute Nucleated RBC Nucleated RBC % Sodium 141 Potassium 3.7 Chloride 98 L Carbon Dioxide 34 H Anion Gap 9.0 BUN 11 Creatinine 0.7 Estimated GFR (MDRD) 80 L Glucose 148 H Lactic Acid 1.4 Calcium 8.6 Total Bilirubin 0.5 AST 19 ALT 13 Alkaline Phosphatase 71 B-Natriuretic Peptide Total Protein 6.4 L Albumin 3.3 Globulin 3.1 Albumin/Globulin Ratio 1.1 Lipase 30 Urine Color YELLOW Urine Clarity CLEAR Urine pH 7.0 Ur Specific Emmet 1.010 Urine Protein 30 H Urine Glucose (UA) NEGATIVE Urine Ketones NEGATIVE Urine Occult Blood NEGATIVE Urine Nitrite NEGATIVE Urine Bilirubin NEGATIVE Urine Urobilinogen 0.2 (NORMAL) Ur Leukocyte Esterase NEGATIVE Urine RBC 0-5 Urine WBC 0-3 Ur Squamous Epith Cells RARE Squamous Urine Bacteria Few Urine Casts 0-2 Hyaline Casts Ur Microscopic Review INDICATED Urine Culture Comments NOT INDICATED Nasal Adenovirus (PCR) Nasal B. parapertussis DNA (PCR) Nasal Coronavir 229E PCR Nasal Coronavir HKU1 PCR Nasal Coronavir NL63 PCR Nasal Coronavir OC43 PCR Nasal Enterovir/Rhinovir PCR Nasal Influenza B PCR Nasal Influenza A PCR Nasal Parainfluen 1 PCR Nasal Parainfluen 2 PCR Nasal Parainfluen 3 PCR Nasal Parainfluen 4 PCR Nasal RSV (PCR) Nasal B.pertussis DNA PCR Nasal C.pneumoniae (PCR) Ashutosh Human Metapneumo PCR Nasal M.pneumoniae (PCR) Nasal SARS-CoV-2 (PCR) - Rads (name of study) LK hip Radiology: Prelim report reviewed (Impression: Probable impacted femoral neck fracture. Comment if desired confirmation, consider CT.), EMP read indepedently, See rad report chest Radiology: Prelim report reviewed (Impression: Recurrent congestive heart failure, mild.), EMP read indepedently, See rad report CT hip Radiology: Prelim report reviewed (Impression: Impacted subcapital fracture of the left femoral neck with mild valgus angulation. ), EMP read indepedently, See rad report PD Medical Decision Making - ED course Complexity details: reviewed old records, reviewed results, re-evaluated patient, considered differential, d/w patient, d/w family, d/w corporate learning consultant (Spoke with Dr. Hill. He recommends CT hip and evaluation by anesthesia re: possibility of surgery tomorrow. We consulted anesthesia and they recommended transfer of this patient to a facility capable of advanced anesthesia with her history of active lung disease.) ED course: 81-year-old female with an acute exacerbation of her COPD and a left hip fractu re has presented to the emergency department with dyspnea and hypoxia and left hip pain. In the emergency department we will we were able to provide a DuoNeb treatment, dexamethasone and oxygen with marked improvement. The patient was found to have parainfluenza 4. The patient's hip pain was evaluated with a plain film which looked relatively benign but did show the possibility of an impacted fracture and this was confirmed with CT scanning. We consulted our orthopedic surgeon here who will leave to go to a conference for the next week. He will not be able to do the repair. We consulted the orthopedic surgeon at [facility] and he indicated that he would not be able to fix a hip as he is a hand surgeon. He indicated he would be in the same boat we are if we attempt to transfer the patient to his facility. We called other [facility] hospitals including [facility] in [facility] in [place], Departure - Departure Disposition: 02 Transfer Acute Care Hosp Clinical Impression: Infection due to parainfluenza virus 4, Acute exacerbation of COPD with asthma Impacted fracture of left hip Qualifiers: Encounter type: initial encounter Fracture type: closed Qualified Code(s): S72.092A - Other fracture of head and neck of left femur, initial encounter for closed fracture
[2022-05-19] MEDS ORDERED: IPRATROPIUM/ALBUTEROL 3 ML NEB INH STA (10:27)
[2022-05-19] MEDS ORDERED: DEXAMETHASONE 10 MG/ML VIAL IVP STA (10:27)
[2022-05-19] MEDS ORDERED: SODIUM CHLORIDE 0.9% 1,000 ML IV STA (10:27)
[2022-05-19 10:46] LABS: BASOPHILS % (AUTO) 0.3 %; EOSINOPHILS % (AUTO) 0.1 %; HCT - HEMATOCRIT 43.4 % (37.0-47.0); HGB - HEMOGLOBIN 12.8 g/dL (12.0-16.0); LYMPHOCYTES # (AUTO) 1.4 10^3/uL (1.5-3.5); LYMPHOCYTES % (AUTO) 10.7 %; MEAN CORPUSCULAR HEMOGLOBIN 27.6 pg (27.0-31.0); MEAN CORPUSCULAR HGB CONC 29.5 g/dL (32.0-36.0); MEAN CORPUSCULAR VOLUME 93.7 fL (81.0-99.0); MEAN PLATELET VOLUME 9.9 fL (7.9-10.8); MONOCYTES # (AUTO) 0.7 10^3/uL (0.0-1.0); MONOCYTES % (AUTO) 5.9 %; NEUTROPHILS # (AUTO) 10.4 10^3/uL (1.5-6.6); NEUTROPHILS % (AUTO) 82.7 %; PLT - PLATELET COUNT 170 10^3/uL (130-450); RED BLOOD COUNT 4.63 10^6/uL (4.20-5.40); RED CELL DISTRIBUTION WIDTH 13.2 % (12.0-15.0); WHITE BLOOD COUNT 12.6 x10^3/uL (4.8-10.8)
--- NOTE | 2022-05-19 11:13 | XRAY Report ---
PROCEDURE: Chest 1 View X-Ray INDICATIONS: soa TECHNIQUE: One view of the chest was acquired. COMPARISON: 03/06/2022 FINDINGS: Surgical changes and devices: None. Lungs and pleura: Mild interstitial pulmonary edema. No pleural fluid. Mild basilar atelectasis. Mediastinum: Mediastinal contours appear normal. Cardiomegaly. Bones and chest wall: No suspicious bony lesions. Overlying soft tissues appear unremarkable. IMPRESSION: Recurrent congestive heart failure, mild. Reviewed by: Zheng Verdin MD on 05/19/2022 11:12 AM PST Approved by: Zheng Verdin MD on 05/19/2022 11:12 AM PST Station ID: [id number]
--- NOTE | 2022-05-19 11:14 | XRAY Report ---
PROCEDURE: Hip w/Pelvis 1V LT INDICATIONS: fall left hip pain TECHNIQUE: AP pelvis with lateral view(s) of the left hip(s). COMPARISON: None. FINDINGS: Bones: Probable impacted left femoral neck fracture. No dislocation. Pelvic ring appears intact. No suspicious bony lesions. Soft tissues: The visualized bowel gas pattern is normal. No suspicious soft tissue calcifications. IMPRESSION: Probable impacted femoral neck fracture. Comment: If desire confirmation, consider CT. Reviewed by: Zheng Verdin MD on 05/19/2022 11:13 AM PST Approved by: Zheng Verdin MD on 05/19/2022 11:13 AM PST Station ID: [id number]
[2022-05-19 11:20] LABS: ALBUMIN 3.3 g/dL (3.2-5.5); ALBUMIN/GLOBULIN RATIO 1.1 (1.0-2.2); BILIRUBIN,TOTAL 0.5 mg/dL (0.2-1.0); CALCIUM 8.6 mg/dL (8.5-10.3); CREATININE 0.7 mg/dL (0.4-1.0); POTASSIUM 3.7 mmol/L (3.5-5.0); TOTAL PROTEIN 6.4 g/dL (6.7-8.2)
[2022-05-19 12:07] LABS: B. PARAPERTUSSIS- RESP PCR PAN NOT DETECTED; B. PERTUSSIS- RESP PCR PANEL NOT DETECTED; C. PNEUMONIAE- RESP PCR PANEL NOT DETECTED; CORONAVIRUS 229E-RESP PCR NOT DETECTED; CORONAVIRUS HKU1-RESP PCR NOT DETECTED; CORONAVIRUS NL63-RESP PCR NOT DETECTED; CORONAVIRUS OC43-RESP PCR NOT DETECTED; HUMAN METAPNEUMOVIRUS NOT DETECTED; INFLUENZA A- RESP PCR PANEL NOT DETECTED; INFLUENZA B - RESP PCR PANEL NOT DETECTED; M. PNEUMONIAE- RESP PCR PANEL NOT DETECTED; PARAINFLUENZA VIRUS 1 NOT DETECTED; PARAINFLUENZA VIRUS 2 NOT DETECTED; PARAINFLUENZA VIRUS 3 NOT DETECTED; PARAINFLUENZA VIRUS 4 DETECTED; RHINOVIRUS/ENTEROVIRUS NOT DETECTED; RSV- RESP PCR PANEL NOT DETECTED; SARS-CoV-2 -RESP PCR PANEL NOT DETECTED
--- NOTE | 2022-05-19 12:18 | CT Report ---
PROCEDURE: LOWER EXTREMITY WO - LT INDICATIONS: ? impacted fx TECHNIQUE: Noncontrast 3-mm axial sections acquired from the distal tibial shaft to the talar dome, with coronal and sagittal reformats. For radiation dose reduction, the following was used: automated exposure c ontrol, adjustment of mA and/or kV according to patient size. COMPARISON: Pelvis and hip from the same date. FINDINGS: Image quality: Excellent. Bones: There is an impacted subcapital fracture of the left femoral neck with mild valgus angulation . No dislocation. Soft tissues: Unremarkable Impression: Impacted subcapital fracture of the left femoral neck with mild valgus angulation. Reviewed by: Zheng Verdin MD on 05/19/2022 12:17 PM PST Approved by: Zheng Verdin MD on 05/19/2022 12:17 PM PST Station ID: [id number]
[2022-05-19 13:59] LABS: BILIRUBIN,URINE NEGATIVE (NEGATIVE); GLUCOSE, URINE (UA) NEGATIVE (NEGATIVE); KETONES,URINE (UA) NEGATIVE (NEGATIVE); LEUKOCYTE ESTERASE, URINE NEGATIVE (NEGATIVE); NITRITE,URINE NEGATIVE (NEGATIVE); OCCULT BLOOD,URINE NEGATIVE (NEGATIVE); PROTEIN,URINE 30 mg/dL (NEGATIVE); UROBILINOGEN,URINE 0.2 (NORMAL) E.U./dL (NORMAL)
[2022-05-19 14:05] LABS: CLARITY,URINE CLEAR (CLEAR)
[2022-05-19 14:14] LABS: BACTERIA,URINE Few /HPF (None Seen); CASTS, URINE 0-2 Hyaline Casts /LPF; RBC,URINE 0-5 /HPF (0-5); SQUAMOUS EPITHELIAL CELL,UR RARE Squamous (<= Few); WBC,URINE 0-3 /HPF (0-5)
[2022-05-19 19:54] VITALS: BP 153/83
== END 2022-05-19 20:43 | disposition short-term general hospital (02) ==
LOC: ED 09:55
DX: J44.1 Chronic obstructive pulmonary disease with (acute) exacerbation (principal); B34.8 Other viral infections of unspecified site; S72.012A Unspecified intracapsular fracture of left femur, initial encounter for closed fracture; W06.XXXA Fall from bed, initial encounter; Z20.822 Contact with and (suspected) exposure to COVID-19
CPT/HCPCS: 36415; 80053; 81001; 81003; 83605; 83690; 83880; 85025; 87040; 87077; 87086; 87150; 87181; 87633; 94640; 94664; 96361; 96374; 99285

== ENCOUNTER 2022-05-19 20:42 | Outpatient (CLI) | payer MEDICARE, OTHER | END 2022-05-19 20:43 | disposition short-term general hospital (02) | LOC: EMS 20:42 | PROVIDERS: ATTEND Emergency Medicine | DX: S72.002A Fracture of unspecified part of neck of left femur, initial encounter for closed fracture (principal); W06.XXXA Fall from bed, initial encounter; B34.8 Other viral infections of unspecified site; J44.1 Chronic obstructive pulmonary disease with (acute) exacerbation | CPT/HCPCS: A0425; A0429 ==

== ENCOUNTER 2022-06-05 10:20 | Outpatient (CLI) | payer MEDICARE, OTHER ==
[2022-06-05 12:12] LABS: BASOPHILS # (AUTO) 0.1 10^3/uL (0.0-0.1); BASOPHILS % (AUTO) 0.8 %; EOSINOPHILS # (AUTO) 0.2 10^3/uL (0.0-0.7); EOSINOPHILS % (AUTO) 1.8 %; HCT - HEMATOCRIT 41.9 % (37.0-47.0); HGB - HEMOGLOBIN 12.5 g/dL (12.0-16.0); LYMPHOCYTES # (AUTO) 1.8 10^3/uL (1.5-3.5); LYMPHOCYTES % (AUTO) 17.6 %; MEAN CORPUSCULAR HEMOGLOBIN 28.5 pg (27.0-31.0); MEAN CORPUSCULAR HGB CONC 29.8 g/dL (32.0-36.0); MEAN CORPUSCULAR VOLUME 95.4 fL (81.0-99.0); MEAN PLATELET VOLUME 9.9 fL (7.9-10.8); MONOCYTES # (AUTO) 0.5 10^3/uL (0.0-1.0); MONOCYTES % (AUTO) 4.5 %; NEUTROPHILS # (AUTO) 7.9 10^3/uL (1.5-6.6); NEUTROPHILS % (AUTO) 74.9 %; PLT - PLATELET COUNT 455 10^3/uL (130-450); RED BLOOD COUNT 4.39 10^6/uL (4.20-5.40); RED CELL DISTRIBUTION WIDTH 14.6 % (12.0-15.0); WHITE BLOOD COUNT 10.5 x10^3/uL (4.8-10.8)
[2022-06-05 12:39] LABS: ALBUMIN 3.6 g/dL (3.2-5.5); ALBUMIN/GLOBULIN RATIO 1.2 (1.0-2.2); ALKALINE PHOSPHATASE 82 IU/L (42-121); ALT ALANINE AMINOTRANSFERASE 20 IU/L (10-60); AST ASPARTATE AMINOTRANSFERASE 26 IU/L (10-42); BILIRUBIN,TOTAL 0.6 mg/dL (0.2-1.0); BUN - BLOOD UREA NITROGEN 10 mg/dL (6-20); CARBON DIOXIDE - CO2 35 mmol/L (21-32); CHLORIDE 99 mmol/L (101-111); CHOL/HDL RATIO 2.2 (<4.4); CHOLESTEROL 111 mg/dL; CREATININE 0.7 mg/dL (0.4-1.0); GFR - MDRD 80 (>89); GLUCOSE 138 mg/dL (70-100); HDL CHOLESTEROL 50 mg/dL; LDL CHOLESTEROL,CALCULATED 42 mg/dL; LDL/HDL RATIO 0.8 (<4.4); POTASSIUM 4.3 mmol/L (3.5-5.0); SODIUM 143 mmol/L (135-145); TOTAL PROTEIN 6.6 g/dL (6.7-8.2); TRIGLYCERIDES 94 mg/dL; VLDL CHOLESTEROL 19 mg/dL
[2022-06-05 12:57] LABS: ESTIMATED AVERAGE GLUCOSE 120 mg/dL (70-100); HEMOGLOBIN A1c% 5.8 % (4.27-6.07)
== END 2022-06-05 10:21 | disposition home or self-care (01) ==
LOC: LAB.N 10:20
PROVIDERS: ATTEND Physician Assistant Medical
DX: E78.5 Hyperlipidemia, unspecified (principal); R73.9 Hyperglycemia, unspecified; S72.002S Fracture of unspecified part of neck of left femur, sequela
CPT/HCPCS: 36415; 80053; 80061; 82728; 83036; 83721; 85025

== ENCOUNTER 2022-06-06 08:00 | Outpatient (CLI) | payer MEDICARE, OTHER ==
--- NOTE | 2022-06-06 16:13 | XRAY Report ---
PROCEDURE: Hip 2 View LT INDICATIONS: LEFT HIP FRACTURE TECHNIQUE: 2 views of the hip were acquired. COMPARISON: Left hip radiographs and CT 05/19/2022 FINDINGS: Postsurgical changes from fixation of the previously demonstrated left femoral neck fracture. 3 screw s are now present. Hardware appears intact. IMPRESSION: Postsurgical changes from left femoral neck fracture fixation. Reviewed by: Jay Bloom MD on 06/06/2022 4:11 PM PDT Approved by: Jay Bloom MD on 06/06/2022 4:11 PM PDT Station ID: [id number]
== END 2022-06-06 23:59 | disposition home or self-care (01) ==
LOC: DI.WOS 08:00
PROVIDERS: ATTEND Orthopaedic Surgery
DX: S72.002D Fracture of unspecified part of neck of left femur, subsequent encounter for closed fracture with routine healing (principal)

== ENCOUNTER 2022-07-03 17:38 | Outpatient (CLI) | payer MEDICARE, OTHER | END 2022-07-03 17:39 | disposition critical access hospital (66) | LOC: EMS 17:38 | DX: I49.9 Cardiac arrhythmia, unspecified (principal); R94.31 Abnormal electrocardiogram [ECG] [EKG] | CPT/HCPCS: A0425; A0429 ==

== ENCOUNTER 2022-07-03 17:59 | Emergency (ER) | payer MEDICARE, OTHER ==
--- NOTE | 2022-07-03 18:04 | ED Physician Documentation ---
History of Present Illness - Stated complaint Stated Complaint: ABNORMAL EKG - History obtained from History obtained from: Patient, EMS - Additonal information Additional information: 81-year-old woman who is chronically on oxygen but does not have any heart problems with the exception of chronic palpitations went to the clinic today for a follow-up for a left hip fracture. It sounds like she mention to the chronic palpitations to her PA who did an EKG and she was sent here because the EKG was abnormal. She has no chest pain and no trouble breathing more than her usual. Denies pedal edema or calf pain. She is currently on Lovenox postoperatively for her hip fracture. PD PAST MEDICAL HISTORY - Past Medical History Cardiovascular: Hypertension Respiratory: Asthma, COPD, Pneumonia, Shortness of breath, Other Neuro: None, CVA Endocrine/Autoimmune: None GI: None TYPIST: None : Kidney stones HEENT: None Psych: None Musculoskeletal: Chronic back pain Derm: None - Past Surgical History Past Surgical History: Yes - Present Medications Home Medications: Ambulatory Orders Medication Instructions Recorded Confirmed Tiotropium [Spiriva] 1 puffs INH DAILY 10/27/12 03/21/19 Acetaminophen [Tylenol] 650 mg PO DAILY 03/21/19 03/21/19 Albuterol Sulfate [Proventil Hfa 1 - 2 puffs INH Q4H PRN 03/21/19 03/21/19 Inhaler] Aspirin [Aspirin EC] 81 mg PO DAILY 03/21/19 03/21/19 Diltiazem HCl [Diltiazem ER] 240 mg PO DAILY 03/21/19 03/21/19 Liane-C 1,000 mg PO DAILY 03/21/19 Fluticasone/Salmeterol [Advair 1 each IH BID 03/21/19 03/21/19 500-50 Diskus] Furosemide [Lasix] 40 mg PO DAILY 03/21/19 03/21/19 Losartan [Cozaar] 50 mg PO BID 03/21/19 03/21/19 Potassium Chloride [Klor-Con 10] 10 meq PO DAILY 03/21/19 03/21/19 terbinafine HCL [Terbinafine HCl] 250 mg PO DAILY 03/21/19 03/21/19 Acyclovir [Zovirax] 800 mg PO 5XD 7 Days #35 tablet 04/26/19 Azithromycin [Zithromax] 250 mg PO DAILY #4 tablet 06/13/19 Cefdinir 300 mg PO BID #20 capsule 06/13/19 Ondansetron Odt [Zofran Odt] 4 mg TL Q6H PRN #10 tablet 08/15/21 Tamsulosin HCl [Flomax] 0.4 mg PO DAILY #30 cap 08/15/21 oxyCODONE [Roxicodone] 5 mg PO TID PRN #20 tablet 08/15/21 predniSONE [Deltasone] 40 mg PO DAILY #10 tablet 03/06/22 - Allergies Allergies/Adverse Reactions: Allergies Allergy/AdvReac Type Severity Reaction Status Date / Time Penicillins Allergy Intermediate Hives, Verified 03/06/22 15:16 swelling aspirin Allergy Mild Rash Verified 03/06/22 15:16 piroxicam [From Feldene] Allergy Mild Rash Verified 03/06/22 15:16 meperidine [From Demerol] Allergy Unknown Verified 03/06/22 15:16 - Social History Does the pt smoke?: No Smoking Status: Never smoker Does the pt drink ETOH?: No Does the pt have substance abuse?: No - Immunizations Immunizations are current?: Yes - POLST Patient has POLST: No PD ED PE NORMAL - Vitals Vital signs reviewed: Yes - General General: Alert and oriented X 3, No acute distress - Cardiac Cardiac: RRR, No murmur, Other (Occasional extrasystoles) - Respiratory Respiratory: No respiratory distress, Clear bilaterally - Abdomen Abdomen: Non tender - Neuro Neuro: Alert and oriented X 3, Normal speech Results - Vitals Vitals: Oxygen O2 Source Nasal cannula PD Medical Decision Making - ED course ED course: 81-year-old woman presents with an asymptomatic abnormal EKG from the clinic, no chest pain or increased trouble breathing. EKG from the clinic from earlier today at 4:28 PM was reviewed. She was has normal sinus rhythm with occasional PVCs and PACs with some mild lateral ST depression. This is compared to an EKG done in this department 3 years ago on MayJune 13, 2019 and this is without significant interval change. This combined with her asymptomatic nature precludes the need for further emergency department work-up. Departure - Departure Disposition: 01 Home, Self Care Clinical Impression: Abnormal EKG Condition: Good Record reviewed to determine appropriate education?: Yes Comments: Your lack of chest pain or increased trouble breathing suggest against the need for further emergency department work-up for your chronically abnormal EKG. You can follow-up with [facility] for this. EKG looks grossly similar to what your EKG looked like 3 years ago. The year prior to that you had a normal echocardiogram. Return immediately if you develop increased trouble breathing or chest pain/discomfort.
[2022-07-03 18:55] VITALS: BP 134/98
== END 2022-07-03 19:02 | disposition home or self-care (01) ==
LOC: ED 17:59
DX: R94.31 Abnormal electrocardiogram [ECG] [EKG] (principal); I10 Essential (primary) hypertension; J44.9 Chronic obstructive pulmonary disease, unspecified; Z86.73 Personal history of transient ischemic attack (TIA), and cerebral infarction without residual deficits; Z79.899 Other long term (current) drug therapy; Z79.51 Long term (current) use of inhaled steroids; Z79.82 Long term (current) use of aspirin
CPT/HCPCS: 99282; 99283

== ENCOUNTER 2022-07-06 14:01 | Outpatient (CLI) | payer MEDICARE, OTHER | END 2022-07-06 23:59 | disposition critical access hospital (66) | LOC: EMS 14:01 | DX: R31.9 Hematuria, unspecified (principal); R10.32 Left lower quadrant pain; R06.02 Shortness of breath; R53.1 Weakness; Z79.01 Long term (current) use of anticoagulants | CPT/HCPCS: A0425; A0427 ==

== ENCOUNTER 2022-07-06 14:23 | Emergency (ER) | payer MEDICARE, OTHER ==
[2022-07-06] MEDS ORDERED: SODIUM CHLORIDE 0.9% 1,000 ML IV STA (14:28)
--- NOTE | 2022-07-06 14:29 | ED Physician Documentation ---
PD HPI ABD PAIN - Stated complaint Stated Complaint: LT SIDE ABD PX - Chief complaint Chief Complaint: Abd Pain - History obtained from History obtained from: Patient, EMS - Additional information Additional information: This is a ezio 81-year-old woman who presents with evaluation of left flank pain and hematuria. She does have a history of renal colic and is currently on low-dose Lovenox after a hip fracture. She developed left flank pain reminiscent of prior renal colic 2 nights ago and today had gross hematuria. Hematuria is better as is the pain and she declines pain medication on initial evaluation. She has had what sounds like may be lithotripsy of a prior kidney stone on the right which became complicated by the stone moving into some area that was unintended and she required surgical repair of that. She denies any increasing chronic dyspnea and there is no chest pain with this. 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 : Kidney stones HEENT: None Psych: None Musculoskeletal: Chronic back pain Derm: None - Past Surgical History Past Surgical History: Yes - Present Medications Home Medications: Ambulatory Orders Medication Instructions Recorded Confirmed Tiotropium [Spiriva] 1 puffs INH DAILY 10/27/12 03/21/19 Acetaminophen [Tylenol] 650 mg PO DAILY 03/21/19 03/21/19 Albuterol Sulfate [Proventil Hfa 1 - 2 puffs INH Q4H PRN 03/21/19 03/21/19 Inhaler] Aspirin [Aspirin EC] 81 mg PO DAILY 03/21/19 03/21/19 Diltiazem HCl [Diltiazem ER] 240 mg PO DAILY 03/21/19 03/21/19 Liane-C 1,000 mg PO DAILY 03/21/19 Fluticasone/Salmeterol [Advair 1 each IH BID 03/21/19 03/21/19 500-50 Diskus] Furosemide [Lasix] 40 mg PO DAILY 03/21/19 03/21/19 Losartan [Cozaar] 50 mg PO BID 03/21/19 03/21/19 Potassium Chloride [Klor-Con 10] 10 meq PO DAILY 03/21/19 03/21/19 terbinafine HCL [Terbinafine HCl] 250 mg PO DAILY 03/21/19 03/21/19 Acyclovir [Zovirax] 800 mg PO 5XD 7 Days #35 tablet 04/26/19 Azithromycin [Zithromax] 250 mg PO DAILY #4 tablet 06/13/19 Cefdinir 300 mg PO BID #20 capsule 06/13/19 Ondansetron Odt [Zofran Odt] 4 mg TL Q6H PRN #10 tablet 08/15/21 Tamsulosin HCl [Flomax] 0.4 mg PO DAILY #30 cap 08/15/21 oxyCODONE [Roxicodone] 5 mg PO TID PRN #20 tablet 08/15/21 predniSONE [Deltasone] 40 mg PO DAILY #10 tablet 03/06/22 Cefdinir 300 mg PO BID #20 cap 07/06/22 Fluconazole [Diflucan] 150 mg PO ONCE PRN #1 tablet 07/06/22 HYDROcod/ACETAM 5/325 [[place] 5/325] 1 - 2 tab PO Q6H PRN #15 tablet 07/06/22 - Allergies Allergies/Adverse Reactions: Allergies Allergy/AdvReac Type Severity Reaction Status Date / Time Penicillins Allergy Intermediate Hives, Verified 07/06/22 14:29 swelling aspirin Allergy Mild Rash Verified 07/06/22 14:29 piroxicam [From Feldene] Allergy Mild Rash Verified 07/06/22 14:29 meperidine [From Demerol] Allergy Unknown Verified 07/06/22 14:29 - Social History Does the pt smoke?: No Smoking Status: Never smoker Does the pt drink ETOH?: No Does the pt have substance abuse?: No - Immunizations Immunizations are current?: Yes - POLST Patient has POLST: No PD ED PE NORMAL - Vitals Vital signs reviewed: Yes (On 4 L nasal cannula which is her baseline) - General General: Alert and oriented X 3, No acute distress - Cardiac Cardiac: RRR (With occasional extrasystoles), No murmur - Respiratory Respiratory: No respiratory distress (Mildly diminished throughout), Other - Abdomen Abdomen: Non tender - Female 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 (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 LAMB), Other (Significant labial swelling and redness bilaterally) - Back Back: No CVA TTP, No spinal TTP - Extremities Extremities: No edema, No calf tenderness / cord - Neuro Neuro: Alert and oriented X 3, Normal speech Results - Vitals Vitals: Vital Signs - 24 hr 07/06/22 07/06/22 07/06/22 14:27 14:29 16:34 Temperature 36.9 C Heart Rate 95 93 Respiratory 18 18 Rate Blood Pressure 121/66 116/103 H O2 Saturation 99 99 100 If not protocol 4 : Oxygen Flow, liters/minute Oxygen O2 Source Nasal cannula - Labs Labs: Laboratory Tests 07/06/22 07/06/22 07/06/22 14:40 14:40 16:39 WBC 7.6 RBC 4.18 L Hgb 12.1 Hct 40.0 MCV 95.7 MCH 28.9 MCHC 30.3 L RDW 13.5 Plt Count 256 MPV 9.6 Neut # (Auto) 5.1 Lymph # (Auto) 1.7 [place] # (Auto) 0.5 Eos # (Auto) 0.2 Baso # (Auto) 0.1 Absolute Nucleated RBC 0.00 Nucleated RBC % 0.0 Sodium 141 Potassium 4.0 Chloride 103 Carbon Dioxide 34 H Anion Gap 4.0 L BUN 13 Creatinine 0.7 Estimated GFR (MDRD) 80 L Glucose 103 H Calcium 8.4 L Urine Color DARK YELLOW Urine Clarity CLOUDY Urine pH 7.0 Ur Specific [place] 1.015 Urine Protein 30 H Urine Glucose (UA) NEGATIVE Urine Ketones NEGATIVE Urine Occult Blood LARGE H Urine Nitrite NEGATIVE Urine Bilirubin NEGATIVE Urine Urobilinogen 0.2 (NORMAL) Ur Leukocyte Esterase LARGE H Urine RBC TNTC H Urine WBC >25 H Ur Squamous Epith Cells FEW Squamous Urine Bacteria Moderate H Ur Microscopic Review INDICATED Urine Culture Comments INDICATED - Rads (name of study) CT abdomen and pelvis Relevant Findings:: Final report received, EMP independent interpretation of test PD Medical Decision Making - ED course ED course: 81-year-old woman with history of renal colic presents with left-sided abdominal pain and hematuria probably consistent with same and found to have a 6 x 4 mm left UVJ stone. Other incidental findings on work-up were discussed with the patient and her daughter at the bedside. She also had a complaint of vaginal burning and irritation, exam done with the RN present showing changes consistent with a vulvar yeast infection, fairly severe so prescribed Diflucan to be taken today in the department but also repeated in a week. Discussed with patient that it is not unlikely that she will need to have urologist to manage the stone given its size and follow-up was advised. She did not require any pain management while in the department, but with the expectation she may have further more severe episodes of pain a prescription for hydrocodone was sent to the pharmacy. CBC reviewed and normal. BMP reviewed with changes probably consistent from chronic CO2 retention from chronic COPD. Her urinalysis had not been collected during her visit, the nurse notified me that right as she was leaving she produced a urine sample. This was reviewed and concerning for some infection. She is certainly not septic with a normal white count and really unremarkable vital signs from that perspective. I called her and talked her on the phone and prescribed some cefdinir which her daughter will go fruit picker and advised her to start as soon as possible. Departure - Departure Disposition: Home, Self Care Clinical Impression: Renal colic, Vaginal yeast infection Condition: Good Record reviewed to determine appropriate education?: Yes Instructions: ED Vaginal Infec Fungal Janny, ED Stone Renal W Colic Prescriptions: Cefdinir 300 mg PO BID #20 cap Fluconazole [Diflucan] 150 mg PO ONCE PRN #1 tablet PRN Reason: yeast infection HYDROcod/ACETAM 5/325 [[place] 5/325] 1 - 2 tab PO Q6H PRN #15 tablet PRN Reason: Pain Comments: You were seen today for pain related to a kidney stone. It is of a decent size and may not pass on its own. It is a 6 x 4 mm kidney stone at the left ureterovesicular junction. If you continue to have pain it is important to follow-up with the urologist. The closest is in [place], the phone number is [phone], call for the next available appointment. Take the copy of the CAT scan on CD with you to that appointment. Other findings on your work-up today are redemonstration of a known abdominal aortic aneurysm, now measuring 3.3 cm. This requires at least annual surveillance with your primary care physician. We also found that you had a yeast infection in your groin. It looks fairly uncomfortable so I gave you 1 dose of fluconazole today and you should repeat it in a week, next . Return if pain is uncontrolled, I did send a prescription for pain medication and the repeat yeast medication to [facility]. I am prescribing a short course of narcotic pain medication for you. These are potentially dangerous and addictive medications that should be used carefully. These medications may constipate you. Take an [id number] stool softener (docusate) twice daily with plenty of water while taking these medications. If you go 24 hours without a bowel movement, take [id number] miralax, per package instructions. Do not drink or drive while taking these medications. If you received narcotic or sedating medications while in the emergency department, do not drive for 24 hours. Store this medication in a safe, secure place and out of reach of children. It is a violation of federal law to give or sell this medication to another person or to use in a manner other than prescribed. The ED will not refill narcotic prescriptions, including prescriptions lost or stolen. To dispose of unwanted medications: 1. [facility] at [address] in [place] has a medication drop box. They accept prescription medications (in pill form) Sunday through Sunday 9:00 a.m. to 5:00 p.m. 2. The [facility] accepts prescription medications (in pill form only) for disposal year round. Call for more information. 3. Contact the [facility] for the next [facility] sponsored prescription drug collection event. , [phone], or [phone]; Note that many narcotic pain relievers also contain Tylenol/acetaminophen. Please ensure that your total dose of acetaminophen from all sources does not exceed 3 g (3000 mg) per day. Discharge Date/Time: 07/06/22 16:34
[2022-07-06 14:46] LABS: BASOPHILS # (AUTO) 0.1 10^3/uL (0.0-0.1); BASOPHILS % (AUTO) 0.8 %; EOSINOPHILS # (AUTO) 0.2 10^3/uL (0.0-0.7); EOSINOPHILS % (AUTO) 2.1 %; HGB - HEMOGLOBIN 12.1 g/dL (12.0-16.0); LYMPHOCYTES # (AUTO) 1.7 10^3/uL (1.5-3.5); LYMPHOCYTES % (AUTO) 22.9 %; MEAN CORPUSCULAR HEMOGLOBIN 28.9 pg (27.0-31.0); MEAN CORPUSCULAR HGB CONC 30.3 g/dL (32.0-36.0); MEAN CORPUSCULAR VOLUME 95.7 fL (81.0-99.0); MEAN PLATELET VOLUME 9.6 fL (7.9-10.8); MONOCYTES # (AUTO) 0.5 10^3/uL (0.0-1.0); MONOCYTES % (AUTO) 6.5 %; NEUTROPHILS # (AUTO) 5.1 10^3/uL (1.5-6.6); NEUTROPHILS % (AUTO) 67.4 %; PLT - PLATELET COUNT 256 10^3/uL (130-450); RED BLOOD COUNT 4.18 10^6/uL (4.20-5.40); RED CELL DISTRIBUTION WIDTH 13.5 % (12.0-15.0); WHITE BLOOD COUNT 7.6 x10^3/uL (4.8-10.8)
[2022-07-06 14:55] LABS: CALCIUM 8.4 mg/dL (8.5-10.3); CREATININE 0.7 mg/dL (0.4-1.0)
--- NOTE | 2022-07-06 16:05 | CT Report ---
PROCEDURE: ABDOMEN/PELVIS WO INDICATIONS: L flank pain TECHNIQUE: Noncontrast 5 mm thick sections acquired from the diaphragms to the symphysis. 5 mm coronal and sagi ttal reformats were then performed. For radiation dose reduction, the following was used: automated exposure control, adjustment of mA and/or kV according to patient size. COMPARISON: None. FINDINGS: Image quality: Excellent. Lung bases and heart: Bronchiectasis in the lung bases. Heart size is normal. There is a small perica rdial effusion. Liver: The liver has no mass or intrahepatic biliary ductal dilatation. Gallbladder and biliary tree: The gallbladder contains 2 stones. No wall thickening or pericholecysti c fluid. Spleen: Unremarkable. Pancreas: Unremarkable. Adrenals: Unremarkable. Kidneys and ureters: Right kidney demonstrates multiple punctate nonobstructing stones. No hydronephr osis or obstructing stones. The left kidney has mild hydronephrosis compared to the prior CT on 2021. There is a 6 x 4 mm stone at the left UVJ. Bowel and peritoneum: No bowel distension. No pathologic free fluid. There is diverticulosis without evidence of diverticulitis. Lymph nodes: No central or retroperitoneal adenopathy. Vessels: The abdominal aorta is severely tortuous and demonstrates aneurysmal dilatation measuring up to 3.3 cm on coronal images. There are diffuse atherosclerotic calcifications. PELVIS Reproductive organs: Unremarkable. Bladder: Unremarkable. Lymph nodes: Unremarkable. Bones: No aggressive osseous abnormality. Other: None. IMPRESSION: 1. 6 x 4 mm stone at the left UVJ with mild left hydronephrosis. 2. No acute abdominal or pelvic abnormality. 3.. Diverticulosis without evidence of diverticulitis. 4. Abdominal aortic aneurysm. Reviewed by: Jose Luis Rowland on 07/06/2022 4:03 PM PDT Approved by: Jose Luis Rowland on 07/06/2022 4:03 PM PDT Station ID: [id number]
[2022-07-06] MEDS ORDERED: FLUCONAZOLE 100 MG TABLET PO STA (16:15)
[2022-07-06 16:35] VITALS: BP 116/103
[2022-07-06 16:46] LABS: BILIRUBIN,URINE NEGATIVE (NEGATIVE); GLUCOSE, URINE (UA) NEGATIVE (NEGATIVE); KETONES,URINE (UA) NEGATIVE (NEGATIVE); LEUKOCYTE ESTERASE, URINE LARGE (NEGATIVE); NITRITE,URINE NEGATIVE (NEGATIVE); OCCULT BLOOD,URINE LARGE (NEGATIVE); PROTEIN,URINE 30 mg/dL (NEGATIVE); UROBILINOGEN,URINE 0.2 (NORMAL) E.U./dL (NORMAL)
[2022-07-06 16:50] LABS: CLARITY,URINE CLOUDY (CLEAR)
[2022-07-06 17:05] LABS: WBC,URINE >25 /HPF (0-5)
[2022-07-06 17:06] LABS: BACTERIA,URINE Moderate /HPF (None Seen); RBC,URINE TNTC /HPF (0-5); SQUAMOUS EPITHELIAL CELL,UR FEW Squamous (<= Few)
== END 2022-07-06 16:34 | disposition home or self-care (01) ==
LOC: EDUNIT# → ED 14:23
DX: N13.2 Hydronephrosis with renal and ureteral calculous obstruction (principal); B37.9 Candidiasis, unspecified; I10 Essential (primary) hypertension
CPT/HCPCS: 36415; 74176; 80048; 81001; 85025; 87086; 87181; 99284; A9270; 81003

== ENCOUNTER 2022-07-20 20:14 | Outpatient (CLI) | payer MEDICARE, OTHER | END 2022-07-20 23:59 | disposition critical access hospital (66) | LOC: EMS 20:14 | DX: R06.02 Shortness of breath (principal); R05.9 Cough, unspecified | CPT/HCPCS: A0425; A0427 ==

== ENCOUNTER 2022-07-20 20:36 | Emergency (ER) | payer MEDICARE, OTHER ==
--- NOTE | 2022-07-20 20:59 | ED Physician Documentation ---
PD HPI DYSPNEA - Stated complaint Stated Complaint: SOA - Chief complaint Chief Complaint: Resp - History obtained from History obtained from: Patient, EMS - Additional information Additional information: HPI from patient with some contribution from EMS. Patient c/o dyspnea x 3 days with cough productive of green-tinged sputum. She was found to have 90% pulse ox on room where for EMS when they first arrived. Patient used duoneb prior to EMS arrival, then given albuterol and duoneb by EMS en route to ED. Patient reports feeling much improvement with these measures. She is oxygen-dependent at home with 4 liters/minute requirement Review of Systems Constitutional: denies: Fever Cardiac: denies: Chest pain / pressure, Palpitations, Pedal edema, Calf pain Respiratory: reports: Dyspnea, Wheezing. 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 : Kidney stones HEENT: None Psych: None Musculoskeletal: Chronic back pain Derm: None - Past Surgical History Past Surgical History: Yes - Present Medications Home Medications: Ambulatory Orders Medication Instructions Recorded Confirmed Tiotropium [Spiriva] 1 puffs INH DAILY 10/27/12 03/21/19 Acetaminophen [Tylenol] 650 mg PO DAILY 03/21/19 03/21/19 Albuterol Sulfate [Proventil Hfa 1 - 2 puffs INH Q4H PRN 03/21/19 03/21/19 Inhaler] Aspirin [Aspirin EC] 81 mg PO DAILY 03/21/19 03/21/19 Diltiazem HCl [Diltiazem ER] 240 mg PO DAILY 03/21/19 03/21/19 Liane-C 1,000 mg PO DAILY 03/21/19 Fluticasone/Salmeterol [Advair 1 each IH BID 03/21/19 03/21/19 500-50 Diskus] Furosemide [Lasix] 40 mg PO DAILY 03/21/19 03/21/19 Losartan [Cozaar] 50 mg PO BID 03/21/19 03/21/19 Potassium Chloride [Klor-Con 10] 10 meq PO DAILY 03/21/19 03/21/19 terbinafine HCL [Terbinafine HCl] 250 mg PO DAILY 03/21/19 03/21/19 Acyclovir [Zovirax] 800 mg PO 5XD 7 Days #35 tablet 04/26/19 Azithromycin [Zithromax] 250 mg PO DAILY #4 tablet 06/13/19 Cefdinir 300 mg PO BID #20 capsule 06/13/19 Ondansetron Odt [Zofran Odt] 4 mg TL Q6H PRN #10 tablet 08/15/21 Tamsulosin HCl [Flomax] 0.4 mg PO DAILY #30 cap 08/15/21 oxyCODONE [Roxicodone] 5 mg PO TID PRN #20 tablet 08/15/21 predniSONE [Deltasone] 40 mg PO DAILY #10 tablet 03/06/22 Cefdinir 300 mg PO BID #20 cap 07/06/22 Fluconazole [Diflucan] 150 mg PO ONCE PRN #1 tablet 07/06/22 HYDROcod/ACETAM 5/325 [[place] 5/325] 1 - 2 tab PO Q6H PRN #15 tablet 07/06/22 Azithromycin [Zithromax] 250 mg PO DAILY #4 tablet 07/20/22 predniSONE [Deltasone] 40 mg PO DAILY 4 Days #8 tablet 07/20/22 - Allergies Allergies/Adverse Reactions: Allergies Allergy/AdvReac Type Severity Reaction Status Date / Time Penicillins Allergy Intermediate Hives, Verified 07/06/22 14:29 swelling aspirin Allergy Mild Rash Verified 07/06/22 14:29 piroxicam [From Feldene] Allergy Mild Rash Verified 07/06/22 14:29 meperidine [From Demerol] Allergy Unknown Verified 07/06/22 14:29 - Social History Does the pt smoke?: No Smoking Status: Never smoker Does the pt drink ETOH?: No Does the pt have substance abuse?: No - Immunizations Immunizations are current?: Yes - POLST Patient has POLST: No PD ED PE NORMAL - Vitals Vital signs reviewed: Yes - General General: Alert and oriented X 3, No acute distress, Well developed/nourished - HEENT HEENT: Moist mucous membranes - Neck Neck: Supple, no meningeal sign - Cardiac Cardiac: No murmur - Respiratory Respiratory: No respiratory distress, Other (bilateral end-expiratory wheezing but good air flow) Results - Vitals Vitals: Oxygen O2 Source Nasal cannula Oxygen Flow Rate 4 - EKG (time done) 1 EKG releavant findings:: EKG personally interpreted by author of this note. Relevant findings are: Rate: Rate (enter#) (124), Tachy Rhythm: Other (ventricular bigeminy) [place]: Normal Intervals: Normal [place] QRS: Normal Ischemia: Normal ST segments - Labs Labs: Laboratory Tests 07/20/22 07/20/22 07/20/22 20:40 20:40 20:40 WBC 6.9 RBC 4.52 Hgb 12.9 Hct 42.1 MCV 93.1 MCH 28.5 MCHC 30.6 L RDW 12.6 Plt Count 243 MPV 10.5 Neut # (Auto) 4.6 Lymph # (Auto) 1.1 L [place] # (Auto) 0.6 Eos # (Auto) 0.6 Baso # (Auto) 0.1 Absolute Nucleated RBC 0.00 Nucleated RBC % 0.0 Sodium 140 Potassium 4.1 Chloride 96 L Carbon Dioxide 33 H Anion Gap 11.0 BUN 20 Creatinine 0.8 Estimated GFR (MDRD) 69 L Glucose 151 H Calcium 9.0 B-Natriuretic Peptide 114 H Nasal Adenovirus (PCR) Nasal B. parapertussis DNA (PCR) Nasal Coronavir 229E PCR Nasal Coronavir HKU1 PCR Nasal Coronavir NL63 PCR Nasal Coronavir OC43 PCR Nasal Enterovir/Rhinovir PCR Nasal Influenza B PCR Nasal Influenza A PCR Nasal Parainfluen 1 PCR Nasal Parainfluen 2 PCR Nasal Parainfluen 3 PCR Nasal Parainfluen 4 PCR Nasal RSV (PCR) Nasal B.pertussis DNA PCR Nasal C.pneumoniae (PCR) [place] Human Metapneumo PCR Nasal M.pneumoniae (PCR) Nasal SARS-CoV-2 (PCR) 07/20/22 21:35 WBC RBC Hgb Hct MCV MCH MCHC RDW Plt Count MPV Neut # (Auto) Lymph # (Auto) [place] # (Auto) Eos # (Auto) Baso # (Auto) Absolute Nucleated RBC Nucleated RBC % Sodium Potassium Chloride Carbon Dioxide Anion Gap BUN Creatinine Estimated GFR (MDRD) Glucose Calcium B-Natriuretic Peptide Nasal Adenovirus (PCR) NOT DETECTED Nasal B. parapertussis DNA (PCR) NOT DETECTED Nasal Coronavir 229E PCR NOT DETECTED Nasal Coronavir HKU1 PCR NOT DETECTED Nasal Coronavir NL63 PCR NOT DETECTED Nasal Coronavir OC43 PCR NOT DETECTED Nasal Enterovir/Rhinovir PCR NOT DETECTED Nasal Influenza B PCR NOT DETECTED Nasal Influenza A PCR NOT DETECTED Nasal Parainfluen 1 PCR NOT DETECTED Nasal Parainfluen 2 PCR NOT DETECTED Nasal Parainfluen 3 PCR NOT DETECTED Nasal Parainfluen 4 PCR NOT DETECTED Nasal RSV (PCR) NOT DETECTED Nasal B.pertussis DNA PCR NOT DETECTED Nasal C.pneumoniae (PCR) NOT DETECTED [place]osh Human Metapneumo PCR NOT DETECTED Nasal M.pneumoniae (PCR) NOT DETECTED Nasal SARS-CoV-2 (PCR) NOT DETECTED - Rads (name of study) chest xray Relevant Findings:: Prelim report reviewed, EMP independent interpretation of test, See rad report PD Medical Decision Making - ED course Complexity details: reviewed old records, reviewed results, re-evaluated patient, considered differential, d/w patient ED course: Given decadron 10mg IV for COPD flare, and xopenex neb x 2 during ED stay. Late in stay, on reevaluation, she is asleep and NAD, pulse ox 97-99% on 4 liters/NC (her usual requirement). Daughter, in ED at bedside, expresses concern that patient is breathing rapidly and then stops breathing. I stayed in the room for several minutes and did not observe any periods of apnea, nor any significant tachypnea. Because she is fragile from the pulmonary standpoint (oxygen- dependent COPD) and has a cough productive of discolored sputum beyond her baseline (as well as dyspnea beyond her baseline), will cover possible early LRTI with azithromycin (first dose in ED, four days more for total of five days) and four days of 40mg PO QD prednisone, both rx are e-prescribed to her pharmacy of choice). Test results d/w patient, return precautions reviewed. Departure - Departure Disposition: 01 Home, Self Care Clinical Impression: COPD exacerbation, Bronchitis Condition: Good Instructions: ED Upper Resp Infec Abx Tx, ED COPD Flare Follow-Up: Gina Pete PA-C [Primary Care Provider] - Prescriptions: predniSONE [Deltasone] 40 mg PO DAILY 4 Days #8 tablet Azithromycin [Zithromax] 250 mg PO DAILY #4 tablet Comments: The results of tonight's blood tests are all very reassuring; There were no remarkable nor diagnostic results. Similarly, your chest x-ray did not show any evidence of an acute process such as a pneumonia. At this time, there is also no indication of fluid overload (CHF). Based on your symptoms, physical exam, and your history, the most likely explanation for your symptoms is a COPD flare brought on by bronchitis ("chest cold"; unlike pneumonia, bronchitis typically does not show on chest xray). Because of your advanced age of COPD and considering your cough that is been productive of colored sputum, I am prescribing an antibiotic for you (Zithromax). A prescription for the Zithromax, along with a prescription for 4 days of steroid (prednisone) has been electronically submitted to the [facility] pharmacy in [place]. Discharge Date/Time: 07/21/22 01:05
[2022-07-20] MEDS ORDERED: DEXAMETHASONE 10 MG/ML VIAL IVP STA (21:26)
[2022-07-20] MEDS ORDERED: LEVALBUTEROL 1.25 MG/3 ML NEB INH STA ×2 (21:27→23:24)
--- OUTSIDE RECORDS SUMMARY | 2022-07-20 21:33 | EXTERNAL MEDICAL SUMMARY RPT | Continuity of Care Document ---
:1940 Author Organization [facility] Address [address] [place] [address] Phone Care Team Providers Name Role Phone Gina Pete Unavailable Unavailable Allergies No information. Encounters No information. Functional Status No information. Immunizations No information. Medications date description facility 2022-07-17 00:00 Fluconazole [facility] 2022-07-17 00:00 Cefdinir [facility] 2022-07-17 00:00 Aspirin [facility] 2022-07-17 00:00 Terbinafine Hcl [facility] 2022-07-17 00:00 Acetaminophen [facility] 2022-07-17 00:00 Furosemide [facility] 2022-07-17 00:00 Tiotropium [place] [facility] 2022-07-17 00:00 Potassium Chloride [facility] 2022-07-17 00:00 Diltiazem Hcl [facility] 2022-07-17 00:00 Tamsulosin [facility] 2022-07-17 00:00 Losartan [facility] Problems date description facility 2022-07-17 10:18 Calculus of kidney [facility] 2022-07-17 11:04 Calculus [facility] Procedures date description facility 2022-07-17 00:00 XR KUB [facility] Results/Labs test date author facility value unit interpret ation Result panel 1 (unknown) (no (unknown) (unknown) (no value) (units (unk nown) date) unknown) (unknown) (no (unknown) (unknown) [id number] (units (unkno wn) date) unknown) (unknown) (no (unknown) (unknown) 07/17/22 (units (unkno wn) date) unknown) (unknown) (no (unknown) (unknown) [address] [place] [address] (units (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) unknown) (unknown) (no (unknown) (unknown) Accession Number: (units (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) [id number] unknown) (unknown) (no (unknown) (unknown) Age/Sex: 81 / F (units (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) Date of Service: unknown) (unknown) (no (unknown) (unknown) [place] (units ( 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) [id number] unknown) (unknown) (no (unknown) (unknown) Approved by: (units (u nknown) date) Verena Cordero M.D. unknown) on 07/17/2022 at 12:22 (unknown) (no (unknown) (unknown) Bones: No (units (unkn own) date) suspicious bony unknown) lesions. There is rightward scoliotic curvature of (unknown) (no (unknown) (unknown) Bowel: Bowel gas (units (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) pattern is normal. unknown) (unknown) (no (unknown) (unknown) COMPARISON: (units (un known) date) [facility] unknown) [facility], [place] KUB, 07/06/2022, 14:57. (unknown) (no (unknown) (unknown) Calcifications (units (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) within the pelvis unknown) with the largest in the inferior pelvis (unknown) (no (unknown) (unknown) : 1940 (units (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) Acct:[id number] unknown) (unknown) (no (unknown) (unknown) Dictated by: (units (u nknown) date) Verena Cordero M.D. unknown) on 07/17/2022 at 12:16 (unknown) (no (unknown) (unknown) FINDINGS: (units (unkn own) date) unknown) (unknown) (no (unknown) (unknown) IMPRESSION: (units (un known) date) unknown) (unknown) (no (unknown) (unknown) INDICATIONS: (units (u nknown) date) kidney stone unknown) (unknown) (no (unknown) (unknown) [facility] (units (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) unknown) (unknown) (no (unknown) (unknown) Loc: RAD (units (unkno wn) date) unknown) (unknown) (no (unknown) (unknown) Ordering Provider: (units (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) Waqas Samuel MD unknown) (unknown) (no (unknown) (unknown) PROCEDURE: XR KUB (units (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) unknown) (unknown) (no (unknown) (unknown) Patient: (units (unkno wn) date) Tiffany Bethea MR#: unknown) [id number] (unknown) (no (unknown) (unknown) Procedure: XR KUB (units (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) unknown) (unknown) (no (unknown) (unknown) Signed (units (unkno wn) date) unknown) (unknown) (no (unknown) (unknown) Soft tissues: (units ( 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) There remain a unknown) cluster of calcifications overlying the right (unknown) (no (unknown) (unknown) Surgical changes (units (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) and devices: None. unknown) (unknown) (no (unknown) (unknown) TECHNIQUE: One (units (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) view of the abdomen unknown) acquired. (unknown) (no (unknown) (unknown) XRay Report (units (un known) date) unknown) (unknown) (no (unknown) (unknown) appearing to be (units (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) unknown) (unknown) (no (unknown) (unknown) appearing (units (unkn own) date) unchanged compared unknown) to prior exam. There is a calcification in the (unknown) (no (unknown) (unknown) calcification (units ( 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) unknown) (unknown) (no (unknown) (unknown) contours appear (units (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) normal in size. unknown) (unknown) (no (unknown) (unknown) identified at the (units (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) ureterovesicular unknown) junction on prior exam. Visualized solid (unknown) (no (unknown) (unknown) junction (units (unkno wn) date) unknown) (unknown) (no (unknown) (unknown) left lower (units (unk nown) date) unknown) (unknown) (no (unknown) (unknown) more anterior (units ( 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) compared to unknown) location at the calcification at the ureterovesicular (unknown) (no (unknown) (unknown) on prior exam. (units (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) There is suspicion unknown) that the calcification is no longer present. (unknown) (no (unknown) (unknown) organ (units (unkno wn) date) unknown) (unknown) (no (unknown) (unknown) pelvis. This (units (u nknown) date) appears to be more unknown) inferior than the expected course of the (unknown) (no (unknown) (unknown) renal shadow (units (u nknown) date) unknown) (unknown) (no (unknown) (unknown) spine (units (unkno wn) date) unknown) (unknown) (no (unknown) (unknown) the lumbar (units (unk nown) date) unknown) (unknown) (no (unknown) (unknown) with apex at L2. (units (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) unknown) Result panel 2 (unknown) (no (unknown) (unknown) (no value) (units (unk nown) date) unknown) (unknown) (no (unknown) (unknown) 07/14/22 (units (unkno wn) date) unknown) (unknown) (no (unknown) (unknown) 07/17/22 [History (units (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) Confirmed unknown) 07/17/22] (unknown) (no (unknown) (unknown) 07/17/22] (units (unkn own) date) unknown) (unknown) (no (unknown) (unknown) 09:41) (units (unkno wn) date) unknown) (unknown) (no (unknown) (unknown) [id number] (units (unkno wn) date) unknown) (unknown) (no (unknown) (unknown) Age/Sex: 81 / F (units (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) Date of Service: unknown) (unknown) (no (unknown) (unknown) Allergies (units (unkn own) date) unknown) (unknown) (no (unknown) (unknown) [place], [place] (units ( 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) [address] unknown) (unknown) (no (unknown) (unknown) Assessment + Plan (units (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) unknown) (unknown) (no (unknown) (unknown) Attending Dr: (units ( 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) Waqas Samuel MD unknown) (unknown) (no (unknown) (unknown) : 1940 (units (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) Acct:[id number] unknown) (unknown) (no (unknown) (unknown) Dept at (units (unkno wn) date) . unknown) (unknown) (no (unknown) (unknown) Documented By: (units (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) Waqas Samuel MD unknown) 07/17/22 1052 (unknown) (no (unknown) (unknown) Draft (units (unkno wn) date) unknown) (unknown) (no (unknown) (unknown) Intake Note: (units (u nknown) date) unknown) (unknown) (no (unknown) (unknown) Intake performed (units (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) by: Lara Arvizu unknown) R (unknown) (no (unknown) (unknown) Intake (units (unkno wn) date) unknown) (unknown) (no (unknown) (unknown) Intake- Clincial (units (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) Staff unknown) (unknown) (no (unknown) (unknown) [facility] (units (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) unknown) (unknown) (no (unknown) (unknown) KUB xr done this (units (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) AM at - imaging unknown) in PAX system (unknown) (no (unknown) (unknown) Loc: URO (units (unkno wn) date) unknown) (unknown) (no (unknown) (unknown) Medications (units (un known) date) unknown) (unknown) (no (unknown) (unknown) Orders (units (unkno wn) date) unknown) (unknown) (no (unknown) (unknown) Orders: (units (unkno wn) date) unknown) (unknown) (no (unknown) (unknown) POC Urine Dip (units ( 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) Today N20.0 - unknown) Calculus of kidney (unknown) (no (unknown) (unknown) Patient: (units (unkno wn) date) Tiffany Bethea unknown) MR#: [id number] (unknown) (no (unknown) (unknown) Penicillins (units (un known) date) Allergy unknown) (Intermediate, Verified 07/17/22 09:41) (unknown) (no (unknown) (unknown) Pt here by (units (unk nown) date) referral for unknown) nephrolithiasis (unknown) (no (unknown) (unknown) Pt reports hx of (units (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) kidney stones and unknown) flank pain (unknown) (no (unknown) (unknown) Reason For Visit (units (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) unknown) (unknown) (no (unknown) (unknown) Signed By: (units (unk nown) date) unknown) (unknown) (no (unknown) (unknown) This note may (units ( 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) have been all or unknown) partially generated using voice recognition (unknown) (no (unknown) (unknown) Urology Office (units (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) Visit unknown) (unknown) (no (unknown) (unknown) 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) - Nephrolithiasis, unknown) KUB URGENT (unknown) (no (unknown) (unknown) [History (units (unkno wn) date) Confirmed unknown) 07/17/22] (unknown) (no (unknown) (unknown) acetaminophen 325 (units (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) mg tablet 650 mg unknown) PO Q6H PRN 07/17/22 [History Confirmed (unknown) (no (unknown) (unknown) aspirin 81 mg (units ( 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) tablet,delayed unknown) release (Adult Aspirin Regimen) 81 mg PO DAILY (unknown) (no (unknown) (unknown) cefdinir 300 mg (units (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) capsule 300 mg PO unknown) BID 07/17/22 [History Confirmed 07/17/22] (unknown) (no (unknown) (unknown) diltiazem HCl 240 (units (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) mg capsule,24 unknown) hr,extended release 240 mg PO DAILY 07/17/22 (unknown) (no (unknown) (unknown) fluconazole 150 (units (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) mg tablet 150 mg unknown) PO ONCE 07/17/22 [History Confirmed 07/17/22] (unknown) (no (unknown) (unknown) furosemide 40 mg (units (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) tablet (Lasix) 40 unknown) mg PO DAILY 07/17/22 [History Confirmed (unknown) (no (unknown) (unknown) have occurred. If (units (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) there are any unknown) questions, please contact the Medical Records (unknown) (no (unknown) (unknown) losartan 50 mg (units (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) tablet (Cozaar) 50 unknown) mg PO BID 07/17/22 [History Confirmed (unknown) (no (unknown) (unknown) may occur. (units (unk nown) date) Occasional unknown) wrong-word or 'sound-alike' substitutions may have (unknown) (no (unknown) (unknown) meperidine [From (units (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) Demerol] Adverse unknown) Reaction (Intermediate, Verified 07/17/22 (unknown) (no (unknown) (unknown) occurred due to (units (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) the inherent unknown) limitations of voice recognition software. Please (unknown) (no (unknown) (unknown) piroxicam [From (units (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) Feldene] Allergy unknown) (Intermediate, Verified 07/17/22 09:41) (unknown) (no (unknown) (unknown) potassium (units (unkn own) date) chloride 10 mEq unknown) tablet,extended release (Klor-Con) 10 meq PO DAILY (unknown) (no (unknown) (unknown) read the note (units ( 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) carefully and unknown) recognize, using context, where these substitutions (unknown) (no (unknown) (unknown) software. (units (unkn own) date) Although every unknown) effort is made to edit content, combination machine tender errors (unknown) (no (unknown) (unknown) tamsulosin 0.4 mg (units (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) capsule (Flomax) unknown) 0.4 mg PO DAILY 07/17/22 [History Confirmed (unknown) (no (unknown) (unknown) terbinafine HCl (units (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) 250 mg tablet 250 unknown) mg PO DAILY 07/17/22 [History Confirmed (unknown) (no (unknown) (unknown) tiotropium (units (unk nown) date) bromide 18 mcg unknown) capsule with inhalation device 1 cap inhalation DAILY Result panel 3 (unknown) (no (unknown) (unknown) (no value) (units (unk nown) date) unknown) (unknown) (no (unknown) (unknown) 07/17/22 10:53 (units (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) unknown) (unknown) (no (unknown) (unknown) 07/17/22 [History (units (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) Confirmed unknown) 07/17/22] (unknown) (no (unknown) (unknown) 07/17/22 (units (unkno wn) date) unknown) (unknown) (no (unknown) (unknown) 07/17/22] (units (unkn own) date) unknown) (unknown) (no (unknown) (unknown) 09:41) (units (unkno wn) date) unknown) (unknown) (no (unknown) (unknown) 100mg yet (units (unkn own) date) unknown) (unknown) (no (unknown) (unknown) 10:53 (units (unkno wn) date) unknown) (unknown) (no (unknown) (unknown) 11:05 (units (unkno wn) date) unknown) (unknown) (no (unknown) (unknown) 3 (units (unkno wn) date) unknown) (unknown) (no (unknown) (unknown) [id number] (units (unkno wn) date) unknown) (unknown) (no (unknown) (unknown) 53 (units (unkno wn) date) unknown) (unknown) (no (unknown) (unknown) Age/Sex: 81 / F (units (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) Date of Service: unknown) (unknown) (no (unknown) (unknown) Allergies (units (unkn own) date) unknown) (unknown) (no (unknown) (unknown) [place], [place] (units ( 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) [id number] unknown) (unknown) (no (unknown) (unknown) Assessment + Plan (units (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) unknown) (unknown) (no (unknown) (unknown) Attending Dr: (units ( 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) Waqas Samuel MD unknown) (unknown) (no (unknown) (unknown) BMI 16.9 (units (unkno wn) date) unknown) (unknown) (no (unknown) (unknown) BP 123/68 (units (unkn own) date) unknown) (unknown) (no (unknown) (unknown) Blood Pressure (units (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) Location Lt unknown) brachial (unknown) (no (unknown) (unknown) : 1940 (units (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) Acct:[id number] unknown) (unknown) (no (unknown) (unknown) Dept at (units (unkno wn) date) . unknown) (unknown) (no (unknown) (unknown) Documented By: (units (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) Waqas Samuel MD unknown) 07/17/22 1052 (unknown) (no (unknown) (unknown) Draft (units (unkno wn) date) unknown) (unknown) (no (unknown) (unknown) Finished cefdinir (units (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) 30mg last night unknown) and has not started new abx Nitrofurantoin MCR (unknown) (no (unknown) (unknown) Height 5 ft 6 in (units (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) unknown) (unknown) (no (unknown) (unknown) Intake Note: (units (u nknown) date) unknown) (unknown) (no (unknown) (unknown) Intake performed (units (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) by: Lara Arvizu unknown) R (unknown) (no (unknown) (unknown) Intake (units (unkno wn) date) unknown) (unknown) (no (unknown) (unknown) Intake- Clincial (units (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) Staff unknown) (unknown) (no (unknown) (unknown) [facility] (units (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) unknown) (unknown) (no (unknown) (unknown) KUB xr done this (units (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) AM at - imaging unknown) in PAX system (unknown) (no (unknown) (unknown) Loc: URO (units (unkno wn) date) unknown) (unknown) (no (unknown) (unknown) Medications (units (un known) date) unknown) (unknown) (no (unknown) (unknown) Orders (units (unkno wn) date) unknown) (unknown) (no (unknown) (unknown) Orders: (units (unkno wn) date) unknown) (unknown) (no (unknown) (unknown) Oxygen Delivery (units (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) Method nasal unknown) canula (unknown) (no (unknown) (unknown) Oxygen Flow Rate (units (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) 5 unknown) (unknown) (no (unknown) (unknown) POC Urine Dip (units ( 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) Today N20.0 - unknown) Calculus of kidney (unknown) (no (unknown) (unknown) Patient: (units (unkno wn) date) Tiffany Bethea unknown) MR#: [id number] (unknown) (no (unknown) (unknown) Penicillins (units (un known) date) Allergy unknown) (Intermediate, Verified 07/17/22 09:41) (unknown) (no (unknown) (unknown) Position Sitting (units (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) unknown) (unknown) (no (unknown) (unknown) Pt here by (units (unk nown) date) referral for unknown) nephrolithiasis (unknown) (no (unknown) (unknown) Pt reports hx of (units (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) kidney stones and unknown) flank pain (unknown) (no (unknown) (unknown) Pulse 105 H (units (un known) date) unknown) (unknown) (no (unknown) (unknown) Pulse Oximetry (units (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) (%) 91 unknown) (unknown) (no (unknown) (unknown) Pulse Source (units (u nknown) date) Monitor unknown) (unknown) (no (unknown) (unknown) Reason For Visit (units (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) unknown) (unknown) (no (unknown) (unknown) Results (units (unkno wn) date) unknown) (unknown) (no (unknown) (unknown) Signed By: (units (unk nown) date) unknown) (unknown) (no (unknown) (unknown) This note may (units ( 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) have been all or unknown) partially generated using voice recognition (unknown) (no (unknown) (unknown) Urine Appearance (units (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) Cloudy Last Edit unknown) by Lara Arvizu LPN on 07/17/22 10:5 (unknown) (no (unknown) (unknown) Urine Bilirubin (units (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) Negative Last Edit unknown) by Lara Arvizu LPN on 07/17/22 10: (unknown) (no (unknown) (unknown) Urine Blood (units (un known) date) Negative Last Edit unknown) by Lara Arvizu LPN on 07/17/22 10:53 (unknown) (no (unknown) (unknown) Urine Color (units (un known) date) Yellow Last Edit unknown) by Lara Arvizu LPN on 07/17/22 10:53 (unknown) (no (unknown) (unknown) Urine Dipstick (units (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) unknown) (unknown) (no (unknown) (unknown) Urine Glucose (units ( 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) Negative mg/dL unknown) Last Edit by Lara Arvizu LPN on 07/17/22 (unknown) (no (unknown) (unknown) Urine Ketones (units ( 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) Negative Last Edit unknown) by Lara Arvizu LPN on 07/17/22 10:53 (unknown) (no (unknown) (unknown) Urine Leukocyte (units (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) Esterase 1+ 70 unknown) Danni/uL Last Edit by Lara Arvizu LPN on (unknown) (no (unknown) (unknown) Urine Nitrate (units ( 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) Negative Last Edit unknown) by Lara Arvizu LPN on 07/17/22 10:53 (unknown) (no (unknown) (unknown) Urine Protein (units ( 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) Negative Last Edit unknown) by Lara Arvizu LPN on 07/17/22 10:53 (unknown) (no (unknown) (unknown) Urine Specific (units (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) [place] 1.015 Last unknown) Edit by Lara Arvizu LPN on 07/17/22 (unknown) (no (unknown) (unknown) Urine (units (unkno wn) date) Urobilinogen - 0.2 unknown) mg/dL Last Edit by Lara Arvizu LPN on (unknown) (no (unknown) (unknown) Urine pH 6.0 Last (units (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) Edit by Lara Arvizu LPN on 07/17/22 10:53 (unknown) (no (unknown) (unknown) Urology Office (units (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) Visit unknown) (unknown) (no (unknown) (unknown) 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) - Nephrolithiasis, unknown) [facility] URGENT (unknown) (no (unknown) (unknown) Vitals (units (unkno wn) date) unknown) (unknown) (no (unknown) (unknown) Weight 105 lb (units ( 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) unknown) (unknown) (no (unknown) (unknown) [History (units (unkno wn) date) Confirmed unknown) 07/17/22] (unknown) (no (unknown) (unknown) acetaminophen 325 (units (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) mg tablet 650 mg unknown) PO Q6H PRN 07/17/22 [History Confirmed (unknown) (no (unknown) (unknown) aspirin 81 mg (units ( 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) tablet,delayed unknown) release (Adult Aspirin Regimen) 81 mg PO DAILY (unknown) (no (unknown) (unknown) cefdinir 300 mg (units (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) capsule 300 mg PO unknown) BID 07/17/22 [History Confirmed 07/17/22] (unknown) (no (unknown) (unknown) diltiazem HCl 240 (units (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) mg capsule,24 unknown) hr,extended release 240 mg PO DAILY 07/17/22 (unknown) (no (unknown) (unknown) fluconazole 150 (units (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) mg tablet 150 mg unknown) PO ONCE 07/17/22 [History Confirmed 07/17/22] (unknown) (no (unknown) (unknown) furosemide 40 mg (units (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) tablet (Lasix) 40 unknown) mg PO DAILY 07/17/22 [History Confirmed (unknown) (no (unknown) (unknown) have occurred. If (units (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) there are any unknown) questions, please contact the Medical Records (unknown) (no (unknown) (unknown) losartan 50 mg (units (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) tablet (Cozaar) 50 unknown) mg PO BID 07/17/22 [History Confirmed (unknown) (no (unknown) (unknown) may occur. (units (unk nown) date) Occasional unknown) wrong-word or 'sound-alike' substitutions may have (unknown) (no (unknown) (unknown) meperidine [From (units (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) Demerol] Adverse unknown) Reaction (Intermediate, Verified 07/17/22 (unknown) (no (unknown) (unknown) occurred due to (units (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) the inherent unknown) limitations of voice recognition software. Please (unknown) (no (unknown) (unknown) piroxicam [From (units (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) Feldene] Allergy unknown) (Intermediate, Verified 07/17/22 09:41) (unknown) (no (unknown) (unknown) potassium (units (unkn own) date) chloride 10 mEq unknown) tablet,extended release (Klor-Con) 10 meq PO DAILY (unknown) (no (unknown) (unknown) read the note (units ( 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) carefully and unknown) recognize, using context, where these substitutions (unknown) (no (unknown) (unknown) software. (units (unkn own) date) Although every unknown) effort is made to edit content, combination machine tender errors (unknown) (no (unknown) (unknown) tamsulosin 0.4 mg (units (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) capsule (Flomax) unknown) 0.4 mg PO DAILY 07/17/22 [History Confirmed (unknown) (no (unknown) (unknown) terbinafine HCl (units (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) 250 mg tablet 250 unknown) mg PO DAILY 07/17/22 [History Confirmed (unknown) (no (unknown) (unknown) tiotropium (units (unk nown) date) bromide 18 mcg unknown) capsule with inhalation device 1 cap inhalation DAILY Result panel 4 (unknown) (no (unknown) (unknown) (no value) (units (unk nown) date) unknown) (unknown) (no (unknown) (unknown) 07/17/22 10:53 (units (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) unknown) (unknown) (no (unknown) (unknown) 07/17/22 [History (units (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) Confirmed unknown) 07/17/22] (unknown) (no (unknown) (unknown) 07/17/22 (units (unkno wn) date) unknown) (unknown) (no (unknown) (unknown) 07/17/22] (units (unkn own) date) unknown) (unknown) (no (unknown) (unknown) 09:41) (units (unkno wn) date) unknown) (unknown) (no (unknown) (unknown) 100mg yet (units (unkn own) date) unknown) (unknown) (no (unknown) (unknown) 10:53 (units (unkno wn) date) unknown) (unknown) (no (unknown) (unknown) 11:05 (units (unkno wn) date) unknown) (unknown) (no (unknown) (unknown) 3 (units (unkno wn) date) unknown) (unknown) (no (unknown) (unknown) [id number] (units (unkno wn) date) unknown) (unknown) (no (unknown) (unknown) 53 (units (unkno wn) date) unknown) (unknown) (no (unknown) (unknown) Age/Sex: 81 / F (units (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) Date of Service: unknown) (unknown) (no (unknown) (unknown) Allergies (units (unkn own) date) unknown) (unknown) (no (unknown) (unknown) [place], [place] (units ( 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) [id number] unknown) (unknown) (no (unknown) (unknown) Assessment + Plan (units (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) unknown) (unknown) (no (unknown) (unknown) Attending Dr: (units ( 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) Waqas Samuel MD unknown) (unknown) (no (unknown) (unknown) BMI 16.9 (units (unkno wn) date) unknown) (unknown) (no (unknown) (unknown) BP 123/68 (units (unkn own) date) unknown) (unknown) (no (unknown) (unknown) Blood Pressure (units (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) Location Lt unknown) brachial (unknown) (no (unknown) (unknown) : 1940 (units (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) Acct:[id number] unknown) (unknown) (no (unknown) (unknown) Dept at (units (unkno wn) date) . unknown) (unknown) (no (unknown) (unknown) Documented By: (units (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) Waqas Samuel MD unknown) 07/17/22 1052 (unknown) (no (unknown) (unknown) Draft (units (unkno wn) date) unknown) (unknown) (no (unknown) (unknown) Finished cefdinir (units (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) 30mg last night unknown) and has not started new abx Nitrofurantoin MCR (unknown) (no (unknown) (unknown) Height 5 ft 6 in (units (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) unknown) (unknown) (no (unknown) (unknown) Intake Note: (units (u nknown) date) unknown) (unknown) (no (unknown) (unknown) Intake performed (units (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) by: Lara Arvizu unknown) R (unknown) (no (unknown) (unknown) Intake (units (unkno wn) date) unknown) (unknown) (no (unknown) (unknown) Intake- Clincial (units (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) Staff unknown) (unknown) (no (unknown) (unknown) [facility] (units (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) unknown) (unknown) (no (unknown) (unknown) KUB xr done this (units (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) AM at [facility]- imaging unknown) in PAX system (unknown) (no (unknown) (unknown) Loc: [facility]RO (units (unkno wn) date) unknown) (unknown) (no (unknown) (unknown) Medications (units (un known) date) unknown) (unknown) (no (unknown) (unknown) Orders (units (unkno wn) date) unknown) (unknown) (no (unknown) (unknown) Orders: (units (unkno wn) date) unknown) (unknown) (no (unknown) (unknown) Oxygen Delivery (units (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) Method nasal unknown) canula (unknown) (no (unknown) (unknown) Oxygen Flow Rate (units (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) 5 unknown) (unknown) (no (unknown) (unknown) POC Urine Dip (units ( 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) Today N20.0 - unknown) Calculus of kidney (unknown) (no (unknown) (unknown) Patient: (units (unkno wn) date) Tiffany Bethea unknown) MR#: [id number] (unknown) (no (unknown) (unknown) Penicillins (units (un known) date) Allergy unknown) (Intermediate, Verified 07/17/22 09:41) (unknown) (no (unknown) (unknown) Position Sitting (units (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) unknown) (unknown) (no (unknown) (unknown) Pt here by (units (unk nown) date) referral for unknown) nephrolithiasis (unknown) (no (unknown) (unknown) Pt reports hx of (units (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) kidney stones and unknown) flank pain (unknown) (no (unknown) (unknown) Pulse 105 H (units (un known) date) unknown) (unknown) (no (unknown) (unknown) Pulse Oximetry (units (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) (%) 91 unknown) (unknown) (no (unknown) (unknown) Pulse Source (units (u nknown) date) Monitor unknown) (unknown) (no (unknown) (unknown) Reason For Visit (units (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) unknown) (unknown) (no (unknown) (unknown) Results (units (unkno wn) date) unknown) (unknown) (no (unknown) (unknown) Signed By: (units (unk nown) date) unknown) (unknown) (no (unknown) (unknown) This note may (units ( 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) have been all or unknown) partially generated using voice recognition (unknown) (no (unknown) (unknown) Urine Appearance (units (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) Cloudy Last Edit unknown) by Lara Arvizu LPN on 07/17/22 10:5 (unknown) (no (unknown) (unknown) Urine Bilirubin (units (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) Negative Last Edit unknown) by Lara Arvizu LPN on 07/17/22 10: (unknown) (no (unknown) (unknown) Urine Blood (units (un known) date) Negative Last Edit unknown) by Lara Arvizu LPN on 07/17/22 10:53 (unknown) (no (unknown) (unknown) Urine Color (units (un known) date) Yellow Last Edit unknown) by Lara Arvizu LPN on 07/17/22 10:53 (unknown) (no (unknown) (unknown) Urine Dipstick (units (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) unknown) (unknown) (no (unknown) (unknown) Urine Glucose (units ( 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) Negative mg/dL unknown) Last Edit by Lara Arvizu LPN on 07/17/22 (unknown) (no (unknown) (unknown) Urine Ketones (units ( 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) Negative Last Edit unknown) by Lara Arvizu LPN on 07/17/22 10:53 (unknown) (no (unknown) (unknown) Urine Leukocyte (units (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) Esterase 1+ 70 unknown) Danni/uL Last Edit by Lara Arvizu LPN on (unknown) (no (unknown) (unknown) Urine Nitrate (units ( 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) Negative Last Edit unknown) by Lara Arvizu LPN on 07/17/22 10:53 (unknown) (no (unknown) (unknown) Urine Protein (units ( 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) Negative Last Edit unknown) by Lara Arvizu LPN on 07/17/22 10:53 (unknown) (no (unknown) (unknown) Urine Specific (units (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) [place] 1.015 Last unknown) Edit by Lara Arvizu LPN on 07/17/22 (unknown) (no (unknown) (unknown) Urine (units (unkno wn) date) Urobilinogen - 0.2 unknown) mg/dL Last Edit by Lara Arvizu LPN on (unknown) (no (unknown) (unknown) Urine pH 6.0 Last (units (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) Edit by Lara Chu unknown) TOÑO Arvizu on 07/17/22 10:53 (unknown) (no (unknown) (unknown) Urology Office (units (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) Visit unknown) (unknown) (no (unknown) (unknown) 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) - Nephrolithiasis, unknown) [facility] (unknown) (no (unknown) (unknown) Vitals (units (unkno wn) date) unknown) (unknown) (no (unknown) (unknown) Weight 105 lb (units ( 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) unknown) (unknown) (no (unknown) (unknown) [History (units (unkno wn) date) Confirmed unknown) 07/17/22] (unknown) (no (unknown) (unknown) acetaminophen 325 (units (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) mg tablet 650 mg unknown) PO Q6H PRN 07/17/22 [History Confirmed (unknown) (no (unknown) (unknown) aspirin 81 mg (units ( 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) tablet,delayed unknown) release (Adult Aspirin Regimen) 81 mg PO DAILY (unknown) (no (unknown) (unknown) cefdinir 300 mg (units (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) capsule 300 mg PO unknown) BID 07/17/22 [History Confirmed 07/17/22] (unknown) (no (unknown) (unknown) diltiazem HCl 240 (units (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) mg capsule,24 unknown) hr,extended release 240 mg PO DAILY 07/17/22 (unknown) (no (unknown) (unknown) fluconazole 150 (units (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) mg tablet 150 mg unknown) PO ONCE 07/17/22 [History Confirmed 07/17/22] (unknown) (no (unknown) (unknown) furosemide 40 mg (units (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) tablet (Lasix) 40 unknown) mg PO DAILY 07/17/22 [History Confirmed (unknown) (no (unknown) (unknown) have occurred. If (units (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) there are any unknown) questions, please contact the Medical Records (unknown) (no (unknown) (unknown) losartan 50 mg (units (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) tablet (Cozaar) 50 unknown) mg PO BID 07/17/22 [History Confirmed (unknown) (no (unknown) (unknown) may occur. (units (unk nown) date) Occasional unknown) wrong-word or 'sound-alike' substitutions may have (unknown) (no (unknown) (unknown) meperidine [From (units (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) Demerol] Adverse unknown) Reaction (Intermediate, Verified 07/17/22 (unknown) (no (unknown) (unknown) occurred due to (units (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) the inherent unknown) limitations of voice recognition software. Please (unknown) (no (unknown) (unknown) piroxicam [From (units (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) Feldene] Allergy unknown) (Intermediate, Verified 07/17/22 09:41) (unknown) (no (unknown) (unknown) potassium (units (unkn own) date) chloride 10 mEq unknown) tablet,extended release (Klor-Con) 10 meq PO DAILY (unknown) (no (unknown) (unknown) read the note (units ( 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) carefully and unknown) recognize, using context, where these substitutions (unknown) (no (unknown) (unknown) software. (units (unkn own) date) Although every unknown) effort is made to edit content, combination machine tender errors (unknown) (no (unknown) (unknown) tamsulosin 0.4 mg (units (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) capsule (Flomax) unknown) 0.4 mg PO DAILY 07/17/22 [History Confirmed (unknown) (no (unknown) (unknown) terbinafine HCl (units (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) 250 mg tablet 250 unknown) mg PO DAILY 07/17/22 [History Confirmed (unknown) (no (unknown) (unknown) tiotropium (units (unk nown) date) bromide 18 mcg unknown) capsule with inhalation device 1 cap inhalation DAILY Result panel 5 (unknown) (no (unknown) (unknown) (no value) (units (unk nown) date) unknown) (unknown) (no (unknown) (unknown) 07/17/22 10:53 (units (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) unknown) (unknown) (no (unknown) (unknown) 07/17/22 [History (units (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) Confirmed unknown) 07/17/22] (unknown) (no (unknown) (unknown) 07/17/22 (units (unkno wn) date) unknown) (unknown) (no (unknown) (unknown) 07/17/22] (units (unkn own) date) unknown) (unknown) (no (unknown) (unknown) 09:41) (units (unkno wn) date) unknown) (unknown) (no (unknown) (unknown) 100mg yet (units (unkn own) date) unknown) (unknown) (no (unknown) (unknown) 10:53 (units (unkno wn) date) unknown) (unknown) (no (unknown) (unknown) 11:05 (units (unkno wn) date) unknown) (unknown) (no (unknown) (unknown) 3 (units (unkno wn) date) unknown) (unknown) (no (unknown) (unknown) [id number] (units (unkno wn) date) unknown) (unknown) (no (unknown) (unknown) 53 (units (unkno wn) date) unknown) (unknown) (no (unknown) (unknown) Age/Sex: 81 / F (units (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) Date of Service: unknown) (unknown) (no (unknown) (unknown) Allergies (units (unkn own) date) unknown) (unknown) (no (unknown) (unknown) [place], [place] (units ( 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) [id number] unknown) (unknown) (no (unknown) (unknown) Assessment + Plan (units (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) unknown) (unknown) (no (unknown) (unknown) Attending Dr: (units ( 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) Waqas Samuel MD unknown) (unknown) (no (unknown) (unknown) BMI 16.9 (units (unkno wn) date) unknown) (unknown) (no (unknown) (unknown) BP 123/68 (units (unkn own) date) unknown) (unknown) (no (unknown) (unknown) Blood Pressure (units (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) Location Lt unknown) brachial (unknown) (no (unknown) (unknown) : 1940 (units (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) Acct:[id number] unknown) (unknown) (no (unknown) (unknown) Dept at (units (unkno wn) date) . unknown) (unknown) (no (unknown) (unknown) Documented By: (units (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) Waqas Samuel MD unknown) 07/17/22 1052 (unknown) (no (unknown) (unknown) Draft (units (unkno wn) date) unknown) (unknown) (no (unknown) (unknown) Finished cefdinir (units (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) 30mg last night unknown) and has not started new abx Nitrofurantoin MCR (unknown) (no (unknown) (unknown) Height 5 ft 6 in (units (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) unknown) (unknown) (no (unknown) (unknown) Intake Note: (units (u nknown) date) unknown) (unknown) (no (unknown) (unknown) Intake performed (units (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) by: Lara Arvizu unknown) R (unknown) (no (unknown) (unknown) Intake (units (unkno wn) date) unknown) (unknown) (no (unknown) (unknown) Intake- Clincial (units (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) Staff unknown) (unknown) (no (unknown) (unknown) [facility] (units (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) unknown) (unknown) (no (unknown) (unknown) KUB xr done this (units (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) AM at - imaging unknown) in PAX system (unknown) (no (unknown) (unknown) Loc: [facility] (units (unkno wn) date) unknown) (unknown) (no (unknown) (unknown) Medications (units (un known) date) unknown) (unknown) (no (unknown) (unknown) Orders (units (unkno wn) date) unknown) (unknown) (no (unknown) (unknown) Orders: (units (unkno wn) date) unknown) (unknown) (no (unknown) (unknown) Oxygen Delivery (units (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) Method nasal unknown) canula (unknown) (no (unknown) (unknown) Oxygen Flow Rate (units (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) 5 unknown) (unknown) (no (unknown) (unknown) POC Urine Dip (units ( 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) Today N20.0 - unknown) Calculus of kidney (unknown) (no (unknown) (unknown) Patient: (units (unkno wn) date) Tiffany Bethea unknown) MR#: [id number] (unknown) (no (unknown) (unknown) Penicillins (units (un known) date) Allergy unknown) (Intermediate, Verified 07/17/22 09:41) (unknown) (no (unknown) (unknown) Position Sitting (units (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) unknown) (unknown) (no (unknown) (unknown) Pt here by (units (unk nown) date) referral for unknown) nephrolithiasis (unknown) (no (unknown) (unknown) Pt reports hx of (units (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) kidney stones and unknown) flank pain (unknown) (no (unknown) (unknown) Pulse 105 H (units (un known) date) unknown) (unknown) (no (unknown) (unknown) Pulse Oximetry (units (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) (%) 91 unknown) (unknown) (no (unknown) (unknown) Pulse Source (units (u nknown) date) Monitor unknown) (unknown) (no (unknown) (unknown) Reason For Visit (units (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) unknown) (unknown) (no (unknown) (unknown) Results (units (unkno wn) date) unknown) (unknown) (no (unknown) (unknown) Signed By: (units (unk nown) date) unknown) (unknown) (no (unknown) (unknown) This note may (units ( 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) have been all or unknown) partially generated using voice recognition (unknown) (no (unknown) (unknown) Urine Appearance (units (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) Cloudy Last Edit unknown) by Lara Arvizu LPN on 07/17/22 10:5 (unknown) (no (unknown) (unknown) Urine Bilirubin (units (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) Negative Last Edit unknown) by Lara Arvizu LPN on 07/17/22 10: (unknown) (no (unknown) (unknown) Urine Blood (units (un known) date) Negative Last Edit unknown) by Lara Arvizu LPN on 07/17/22 10:53 (unknown) (no (unknown) (unknown) Urine Color (units (un known) date) Yellow Last Edit unknown) by Lara Arvizu LPN on 07/17/22 10:53 (unknown) (no (unknown) (unknown) Urine Dipstick (units (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) unknown) (unknown) (no (unknown) (unknown) Urine Glucose (units ( 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) Negative mg/dL unknown) Last Edit by Lara Arvizu LPN on 07/17/22 (unknown) (no (unknown) (unknown) Urine Ketones (units ( 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) Negative Last Edit unknown) by Lara Arvizu LPN on 07/17/22 10:53 (unknown) (no (unknown) (unknown) Urine Leukocyte (units (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) Esterase 1+ 70 unknown) Danni/uL Last Edit by Lara Arvizu LPN on (unknown) (no (unknown) (unknown) Urine Nitrate (units ( 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) Negative Last Edit unknown) by Lara Arvizu LPN on 07/17/22 10:53 (unknown) (no (unknown) (unknown) Urine Protein (units ( 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) Negative Last Edit unknown) by Lara Arvizu LPN on 07/17/22 10:53 (unknown) (no (unknown) (unknown) Urine Specific (units (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) [place] 1.015 Last unknown) Edit by Lara Arvizu LPN on 07/17/22 (unknown) (no (unknown) (unknown) Urine (units (unkno wn) date) Urobilinogen - 0.2 unknown) mg/dL Last Edit by Lara Arvizu LPN on (unknown) (no (unknown) (unknown) Urine pH 6.0 Last (units (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) Edit by Lara Arvizu LPN on 07/17/22 10:53 (unknown) (no (unknown) (unknown) Urology Office (units (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) Visit unknown) (unknown) (no (unknown) (unknown) 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) - Nephrolithiasis, unknown) [facility] (unknown) (no (unknown) (unknown) Vitals (units (unkno wn) date) unknown) (unknown) (no (unknown) (unknown) Weight 105 lb (units ( 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) unknown) (unknown) (no (unknown) (unknown) [History (units (unkno wn) date) Confirmed unknown) 07/17/22] (unknown) (no (unknown) (unknown) acetaminophen 325 (units (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) mg tablet 650 mg unknown) PO Q6H PRN 07/17/22 [History Confirmed (unknown) (no (unknown) (unknown) aspirin 81 mg (units ( 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) tablet,delayed unknown) release (Adult Aspirin Regimen) 81 mg PO DAILY (unknown) (no (unknown) (unknown) cefdinir 300 mg (units (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) capsule 300 mg PO unknown) BID 07/17/22 [History Confirmed 07/17/22] (unknown) (no (unknown) (unknown) diltiazem HCl 240 (units (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) mg capsule,24 unknown) hr,extended release 240 mg PO DAILY 07/17/22 (unknown) (no (unknown) (unknown) fluconazole 150 (units (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) mg tablet 150 mg unknown) PO ONCE 07/17/22 [History Confirmed 07/17/22] (unknown) (no (unknown) (unknown) furosemide 40 mg (units (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) tablet (Lasix) 40 unknown) mg PO DAILY 07/17/22 [History Confirmed (unknown) (no (unknown) (unknown) have occurred. If (units (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) there are any unknown) questions, please contact the Medical Records (unknown) (no (unknown) (unknown) losartan 50 mg (units (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) tablet (Cozaar) 50 unknown) mg PO BID 07/17/22 [History Confirmed (unknown) (no (unknown) (unknown) may occur. (units (unk nown) date) Occasional unknown) wrong-word or 'sound-alike' substitutions may have (unknown) (no (unknown) (unknown) meperidine [From (units (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) Demerol] Adverse unknown) Reaction (Intermediate, Verified 07/17/22 (unknown) (no (unknown) (unknown) occurred due to (units (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) the inherent unknown) limitations of voice recognition software. Please (unknown) (no (unknown) (unknown) piroxicam [From (units (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) Feldene] Allergy unknown) (Intermediate, Verified 07/17/22 09:41) (unknown) (no (unknown) (unknown) potassium (units (unkn own) date) chloride 10 mEq unknown) tablet,extended release (Klor-Con) 10 meq PO DAILY (unknown) (no (unknown) (unknown) read the note (units ( 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) carefully and unknown) recognize, using context, where these substitutions (unknown) (no (unknown) (unknown) software. (units (unkn own) date) Although every unknown) effort is made to edit content, combination machine tender errors (unknown) (no (unknown) (unknown) tamsulosin 0.4 mg (units (unknown) date) capsule (Flomax) unknown) 0.4 mg PO DAILY 07/17/22 [History Confirmed (unknown) (no (unknown) (unknown) terbinafine HCl (units (unknown) date) 250 mg tablet 250 unknown) mg PO DAILY 07/17/22 [History Confirmed (unknown) (no (unknown) (unknown) tiotropium (units (unk nown) date) bromide 18 mcg unknown) capsule with inhalation device 1 cap inhalation DAILY Result panel 6 (unknown) (no (unknown) (unknown) (no value) (units (unk nown) date) unknown) (unknown) (no (unknown) (unknown) (1) Left ureteral (units (unknown) date) calculus: unknown) (unknown) (no (unknown) (unknown) (2) UTI (urinary (units (unknown) date) tract infection): unknown) (unknown) (no (unknown) (unknown) (3) (units (unkno wn) date) Nephrolithiasis: unknown) (unknown) (no (unknown) (unknown) 07/17/22 10:53 (units (unknown) date) unknown) (unknown) (no (unknown) (unknown) 07/17/22 [History (units (unknown) date) Confirmed unknown) 07/17/22] (unknown) (no (unknown) (unknown) 07/17/22 (units (unkno wn) date) unknown) (unknown) (no (unknown) (unknown) 07/17/22] (units (unkn own) date) unknown) (unknown) (no (unknown) (unknown) 09:41) (units (unkno wn) date) unknown) (unknown) (no (unknown) (unknown) 100mg yet (units (unkn own) date) unknown) (unknown) (no (unknown) (unknown) 10:53 (units (unkno wn) date) unknown) (unknown) (no (unknown) (unknown) 11:05 (units (unkno wn) date) unknown) (unknown) (no (unknown) (unknown) 3 (units (unkno wn) date) unknown) (unknown) (no (unknown) (unknown) [id number] (units (unkno wn) date) unknown) (unknown) (no (unknown) (unknown) 53 (units (unkno wn) date) unknown) (unknown) (no (unknown) (unknown) Additional (units (unk nown) date) punctate, unknown) nonobstructing calculi for reported as seen in the right (unknown) (no (unknown) (unknown) Age/Sex: 81 / F (units (unknown) date) Date of Service: unknown) (unknown) (no (unknown) (unknown) All systems (units (un known) date) reviewed + are unknown) unremarkable except as noted in HPI and below (unknown) (no (unknown) (unknown) Allergies (units (unkn own) date) unknown) (unknown) (no (unknown) (unknown) [place], [place] (units ( unknown) date) [id number] unknown) (unknown) (no (unknown) (unknown) Tiffany is an (units ( unknown) date) 81-year-old unknown) female presenting today with her supportive (unknown) (no (unknown) (unknown) Assessment + Plan (units (unknown) date) unknown) (unknown) (no (unknown) (unknown) Attending Dr: (units ( unknown) date) Waqas Samuel MD unknown) (unknown) (no (unknown) (unknown) BMI 16.9 (units (unkno wn) date) unknown) (unknown) (no (unknown) (unknown) BP 123/68 (units (unkn own) date) unknown) (unknown) (no (unknown) (unknown) Blood Pressure (units (unknown) date) Location Lt unknown) brachial (unknown) (no (unknown) (unknown) Chief Complaint (units (unknown) date) unknown) (unknown) (no (unknown) (unknown) Chief Complaint: (units (unknown) date) Left ureteral unknown) calculus (unknown) (no (unknown) (unknown) Code(s): (units (unkno wn) date) unknown) (unknown) (no (unknown) (unknown) Const (units (unkno wn) date) unknown) (unknown) (no (unknown) (unknown) : 1940 (units (unknown) date) Acct:[id number] unknown) (unknown) (no (unknown) (unknown) Dept at (units (unkno wn) date) . unknown) (unknown) (no (unknown) (unknown) Details: (units (unkno wn) date) unknown) (unknown) (no (unknown) (unknown) Documented By: (units (unknown) date) Waqas Samuel MD unknown) 07/17/22 1052 (unknown) (no (unknown) (unknown) Draft (units (o wn) date) unknown) (unknown) (no (unknown) (unknown) E coli with (units (un known) date) several unknown) resistances and profile. Appropriate treat spent was (unknown) (no (unknown) (unknown) Evaluation (units (unk nown) date) included unknown) noncontrast CT 07/06/2022. The study demonstrated mild left (unknown) (no (unknown) (unknown) Exam Narrative (units (unknown) date) unknown) (unknown) (no (unknown) (unknown) Exam Narrative: (units (unknown) date) unknown) (unknown) (no (unknown) (unknown) Exam (units (unkno wn) date) unknown) (unknown) (no (unknown) (unknown) Finished cefdinir (units (unknown) date) 30mg last night unknown) and has not started new abx Nitrofurantoin MCR (unknown) (no (unknown) (unknown) HPI (units (unkno wn) date) unknown) (unknown) (no (unknown) (unknown) Head/neck-sclera (units (unknown) date) clear pupils are unknown) equal and round. Membranes are dry. (unknown) (no (unknown) (unknown) Heart-normal rate (units (unknown) date) and rhythm. unknown) (unknown) (no (unknown) (unknown) Height 5 ft 6 in (units (unknown) date) unknown) (unknown) (no (unknown) (unknown) Hirsutism (units (unkn own) date) present. Neck is unknown) without adenopathy or JVD. Chest no audible wheeze. (unknown) (no (unknown) (unknown) Intake Note: (units (u nknown) date) unknown) (unknown) (no (unknown) (unknown) Intake performed (units (unknown) date) by: Lara Arvizu unknown) R (unknown) (no (unknown) (unknown) Intake (units (unkno wn) date) unknown) (unknown) (no (unknown) (unknown) Intake- Clincial (units (unknown) date) Staff unknown) (unknown) (no (unknown) (unknown) [facility] (units (unknown) date) unknown) (unknown) (no (unknown) (unknown) KUB 07/17/2022 is (units (unknown) date) reviewed. There is unknown) a prominent stool and gas pattern (unknown) (no (unknown) (unknown) KUB xr done this (units (unknown) date) AM at - imaging unknown) in PAX system (unknown) (no (unknown) (unknown) Left ureteral (units ( unknown) date) calculus unknown) (unknown) (no (unknown) (unknown) Loc: [facility] (units (unkno wn) date) unknown) (unknown) (no (unknown) (unknown[facility] with complaint of unknown) severe and acute onset left flank pain. (unknown) (no (unknown) (unknown) Medical History (units (unknown) date) (Updated 07/17/22 unknown) @ 15:23 by Waqas Samuel MD) (unknown) (no (unknown) (unknown) Medications (units (un known) date) unknown) (unknown) (no (unknown) (unknown) N20.0 - Calculus (units (unknown) date) of kidney unknown) (unknown) (no (unknown) (unknown) N20.1 - Calculus (units (unknown) date) of ureter unknown) (unknown) (no (unknown) (unknown) N39.0 - Urinary (units (unknown) date) tract infection, unknown) site not specified (unknown) (no (unknown) (unknown) Nephrolithiasis (units (unknown) date) unknown) (unknown) (no (unknown) (unknown) Orders (units (unkno wn) date) unknown) (unknown) (no (unknown) (unknown) Orders: (units (unkno wn) date) unknown) (unknown) (no (unknown) (unknown) Oxygen Delivery (units (unknown) date) Method nasal unknown) canula (unknown) (no (unknown) (unknown) Oxygen Flow Rate (units (unknown) date) 5 unknown) (unknown) (no (unknown) (unknown) PFSH (units (unkno wn) date) unknown) (unknown) (no (unknown) (unknown) POC Urine Dip (units ( unknown) date) Today N20.0 - unknown) Calculus of kidney (unknown) (no (unknown) (unknown) Patient: (units (unkno wn) date) Tiffany Bethea unknown) MR#: [id number] (unknown) (no (unknown) (unknown) Penicillins (units (un known) date) Allergy unknown) (Intermediate, Verified 07/17/22 09:41) (unknown) (no (unknown) (unknown) Position Sitting (units (unknown) date) unknown) (unknown) (no (unknown) (unknown) Pt here by (units (unk nown) date) referral for unknown) nephrolithiasis (unknown) (no (unknown) (unknown) Pt reports hx of (units (unknown) date) kidney stones and unknown) flank pain (unknown) (no (unknown) (unknown) Pulse 105 H (units (un known) date) unknown) (unknown) (no (unknown) (unknown) Pulse Oximetry (units (unknown) date) (%) 91 unknown) (unknown) (no (unknown) (unknown) Pulse Source (units (u nknown) date) Monitor unknown) (unknown) (no (unknown) (unknown) ROS (units (unkno wn) date) unknown) (unknown) (no (unknown) (unknown) Reason For Visit (units (unknown) date) unknown) (unknown) (no (unknown) (unknown) Results (units (unkno wn) date) unknown) (unknown) (no (unknown) (unknown) Right proximally (units (unknown) date) 22. unknown) (unknown) (no (unknown) (unknown) She denies fever (units (unknown) date) ongoing flank pain unknown) or chills. Urine culture of same date grew (unknown) (no (unknown) (unknown) She is a thin, (units (unknown) date) chronically ill unknown) appearing woman in a wheeled chair and in no (unknown) (no (unknown) (unknown) Signed By: (units (unk nown) date) unknown) (unknown) (no (unknown) (unknown) Status: Acute (units ( unknown) date) unknown) (unknown) (no (unknown) (unknown) This note may (units ( unknown) date) have been all or unknown) partially generated using voice recognition (unknown) (no (unknown) (unknown) UTI (urinary (units (u nknown) date) tract infection) unknown) (unknown) (no (unknown) (unknown) Urinalysis today (units (unknown) date) demonstrates 1+ unknown) leukocytes, otherwise clear (unknown) (no (unknown) (unknown) Urine Appearance (units (unknown) date) Cloudy Last Edit unknown) by Lara Arvizu LPN on 07/17/22 10:5 (unknown) (no (unknown) (unknown) Urine Bilirubin (units (unknown) date) Negative Last Edit unknown) by Lara Arvizu LPN on 07/17/22 10: (unknown) (no (unknown) (unknown) Urine Blood (units (un known) date) Negative Last Edit unknown) by Lara Arvizu LPN on 07/17/22 10:53 (unknown) (no (unknown) (unknown) Urine Color (units (un known) date) Yellow Last Edit unknown) by Lara Arvizu LPN on 07/17/22 10:53 (unknown) (no (unknown) (unknown) Urine Dipstick (units (unknown) date) unknown) (unknown) (no (unknown) (unknown) Urine Glucose (units ( unknown) date) Negative mg/dL unknown) Last Edit by Lara Arvizu LPN on 07/17/22 (unknown) (no (unknown) (unknown) Urine Ketones (units ( unknown) date) Negative Last Edit unknown) by Lara Arvizu LPN on 07/17/22 10:53 (unknown) (no (unknown) (unknown) Urine Leukocyte (units (unknown) date) Esterase 1+ 70 unknown) Danni/uL Last Edit by Lara Arvizu LPN on (unknown) (no (unknown) (unknown) Urine Nitrate (units ( unknown) date) Negative Last Edit unknown) by Lara Arvizu LPN on 07/17/22 10:53 (unknown) (no (unknown) (unknown) Urine Protein (units ( unknown) date) Negative Last Edit unknown) by Lara Arvizu LPN on 07/17/22 10:53 (unknown) (no (unknown) (unknown) Urine Specific (units (unknown) date) [place] 1.015 Last unknown) Edit by Lara Arvizu LPN on 07/17/22 (unknown) (no (unknown) (unknown) Urine (units (unkno wn) date) Urobilinogen - 0.2 unknown) mg/dL Last Edit by Lara Arvizu LPN on (unknown) (no (unknown) (unknown) Urine pH 6.0 Last (units (unknown) date) Edit by Lara Chu unknownSav Arvizu LPN on 07/17/22 10:53 (unknown) (no (unknown) (unknown) Urology Office (units (unknown) date) Visit unknown) (unknown) (no (unknown) (unknown) 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 (unknown) (no (unknown) (unknown) aspirin 81 mg (units ( unknown) date) tablet,delayed unknown) release (Adult Aspirin Regimen) 81 mg PO DAILY (unknown) (no (unknown) (unknown) cefdinir 300 mg (units (unknown) date) capsule 300 mg PO unknown) BID 07/17/22 [History Confirmed 07/17/22] (unknown) (no (unknown) (unknown) collecting (units (unk nown) date) system. Despite unknown) request from [facility] images have not yet been (unknown) (no (unknown) (unknown) coordinated with (units (unknown) date) her PCP to unknown) continue without interruption to nitrofurantoin 100 (unknown) (no (unknown) (unknown) diltiazem HCl 240 (units (unknown) date) mg capsule,24 unknown) hr,extended release 240 mg PO DAILY 07/17/22 (unknown) (no (unknown) (unknown) fluconazole 150 (units (unknown) date) mg tablet 150 mg unknown) PO ONCE 07/17/22 [History Confirmed 07/17/22] (unknown) (no (unknown) (unknown) friend, Keyshawn, for (units (unknown) date) opinion unknown) regarding recent presentation to [facility] (unknown) (no (unknown) (unknown) furosemide 40 mg (units (unknown) date) tablet (Lasix) 40 unknown) mg PO DAILY 07/17/22 [History Confirmed (unknown) (no (unknown) (unknown) have occurred. If (units (unknown) date) there are any unknown) questions, please contact the Medical Records (unknown) (no (unknown) (unknown) hydro nephrosis, (units (unknown) date) and a 6 x 4 mm unknown) left ureterovesical junction calculus. (unknown) (no (unknown) (unknown) initiated with (units (unknown) date) cefdinir 300 mg unknown) b.i.d.. She is completing that and I had (unknown) (no (unknown) (unknown) irregular (units (unkno wn) date) radiopaque density unknown) in the vicinity of the left ureterovesical junction (unknown) (no (unknown) (unknown) losartan 50 mg (units (unknown) date) tablet (Cozaar) 50 unknown) mg PO BID 07/17/22 [History Confirmed (unknown) (no (unknown) (unknown) may occur. (units (unk nown) date) Occasional unknown) wrong-word or 'sound-alike' substitutions may have (unknown) (no (unknown) (unknown) meperidine [From (units (unknown) date) Demerol] Adverse unknown) Reaction (Intermediate, Verified 07/17/22 (unknown) (no (unknown) (unknown) mg p.o. at HS for (units (unknown) date) 60 days. unknown) (unknown) (no (unknown) (unknown) obscuring much (units (unknown) date) visualization of unknown) the urinary tract. However, there is an (unknown) (no (unknown) (unknown) occurred due to (units (unknown) date) the inherent unknown) limitations of voice recognition software. Please (unknown) (no (unknown) (unknown) piroxicam [From (units (unknown) date) Feldene] Allergy unknown) (Intermediate, Verified 07/17/22 09:41) (unknown) (no (unknown) (unknown) potassium (units (unkn own) date) chloride 10 mEq unknown) tablet,extended release (Klor-Con) 10 meq PO DAILY (unknown) (no (unknown) (unknown) [facility] review. (unknown) (no (unknown) (unknown) read the note (units ( unknown) date) carefully and unknown) recognize, using context, where these substitutions (unknown) (no (unknown) (unknown) reports that she (units (unknown) date) had no further unknown) pain following her evaluation in the ED. (unknown) (no (unknown) (unknown) software. (units (unkn own) date) Although every unknown) effort is made to edit content, combination machine tender errors (unknown) (no (unknown) (unknown) tamsulosin 0.4 mg (units (unknown) date) capsule (Flomax) unknown) 0.4 mg PO DAILY 07/17/22 [History Confirmed (unknown) (no (unknown) (unknown) terbinafine HCl (units (unknown) date) 250 mg tablet 250 unknown) mg PO DAILY 07/17/22 [History Confirmed (unknown) (no (unknown) (unknown) that likely (units (un known) date) represents the unknown) index calculus seen on CT recently. The patient (unknown) (no (unknown) (unknown) tiotropium (units (unk nown) date) bromide 18 mcg unknown) capsule with inhalation device 1 cap inhalation DAILY Result panel 7 (unknown) (no (unknown) (unknown) (no value) (units (unk nown) date) unknown) (unknown) (no (unknown) (unknown) (1) Left ureteral (units (unknown) date) calculus: unknown) (unknown) (no (unknown) (unknown) (2) UTI (urinary (units (unknown) date) tract infection): unknown) (unknown) (no (unknown) (unknown) (3) (units (unkno wn) date) Nephrolithiasis: unknown) (unknown) (no (unknown) (unknown) 07/17/22 10:53 (units (unknown) date) unknown) (unknown) (no (unknown) (unknown) 07/17/22 1528 (units ( unknown) date) unknown) (unknown) (no (unknown) (unknown) 07/17/22 [History (units (unknown) date) Confirmed unknown) 07/17/22] (unknown) (no (unknown) (unknown) 07/17/22 (units (unkno wn) date) unknown) (unknown) (no (unknown) (unknown) 07/17/22] (units (unkn own) date) unknown) (unknown) (no (unknown) (unknown) 09:41) (units (unkno wn) date) unknown) (unknown) (no (unknown) (unknown) 1. Return to (units (u nknown) date) [facility] and unknown) proximally 2 weeks for clinical update and (unknown) (no (unknown) (unknown) 100mg yet (units (unkn own) date) unknown) (unknown) (no (unknown) (unknown) 10:53 (units (unkno wn) date) unknown) (unknown) (no (unknown) (unknown) 11:05 (units (unkno wn) date) unknown) (unknown) (no (unknown) (unknown) 2. Request CT (units ( unknown) date) [facility] pushed [facility] ([facility]) (no (unknown) (unknown) 3 (units (unkno wn) date) unknown) (unknown) (no (unknown) (unknown) 3. A commode hat (units (unknown) date) and strainer were unknown) provided with instructions and indicators for (unknown) (no (unknown) (unknown) 4. Proceed with (units (unknown) date) prescribed unknown) nitrofurantoin 100 mg p.o. at HS. (unknown) (no (unknown) (unknown) [id number] (units (unkno wn) date) unknown) (unknown) (no (unknown) (unknown) 5. She likely (units ( unknown) date) will benefit from unknown) topical intravaginal estradiol cream versus (unknown) (no (unknown) (unknown) 50% probability (units (unknown) date) of successful unknown) passage overall. She seems to have responded well (unknown) (no (unknown) (unknown) 53 (units (unkno wn) date) unknown) (unknown) (no (unknown) (unknown) 6. Rx tamsulosin (units (unknown) date) 0.4 mg at unknown) HS-continue as previously and currently prescribed. (unknown) (no (unknown) (unknown) Additional (units (unk nown) date) punctate, unknown) nonobstructing calculi for reported as seen in the right (unknown) (no (unknown) (unknown) Age/Sex: 81 / F (units (unknown) date) Date of Service: unknown) (unknown) (no (unknown) (unknown) All systems (units (un known) date) reviewed + are unknown) unremarkable except as noted in HPI and below (unknown) (no (unknown) (unknown) Allergies (units (unkn own) date) unknown) (unknown) (no (unknown) (unknown) [place], [place] (units ( unknown) date) [id number] unknown) (unknown) (no (unknown) (unknown) Tiffany is an (units ( unknown) date) 81-year-old unknown) female presenting today with her supportive (unknown) (no (unknown) (unknown) Assessment + Plan (units (unknown) date) unknown) (unknown) (no (unknown) (unknown) Attending Dr: (units ( unknown) date) Waqas Samuel MD unknown) (unknown) (no (unknown) (unknown) BMI 16.9 (units (unkno wn) date) unknown) (unknown) (no (unknown) (unknown) BP 123/68 (units (unkn own) date) unknown) (unknown) (no (unknown) (unknown) Blood Pressure (units (unknown) date) Location Lt unknown) brachial (unknown) (no (unknown) (unknown) Chief Complaint (units (unknown) date) unknown) (unknown) (no (unknown) (unknown) Chief Complaint: (units (unknown) date) Left ureteral unknown) calculus (unknown) (no (unknown) (unknown) Code(s): (units (unkno wn) date) unknown) (unknown) (no (unknown) (unknown) Const (units (unkno wn) date) unknown) (unknown) (no (unknown) (unknown) : 1940 (units (unknown) date) Acct:[id number] unknown) (unknown) (no (unknown) (unknown) Dept at (units (unkno wn) date) . unknown) (unknown) (no (unknown) (unknown) Details: (units (unkno wn) date) unknown) (unknown) (no (unknown) (unknown) Documented By: (units (unknown) date) Waqas Samuel MD unknown) 07/17/22 1052 (unknown) (no (unknown) (unknown) E coli with (units (un known) date) several unknown) resistances and profile. Appropriate treat spent was (unknown) (no (unknown) (unknown) Encounter (units (unkn own) date) documentation, Rx unknown) submission, and billing-10 minutes (unknown) (no (unknown) (unknown) Evaluation (units (unk nown) date) included unknown) noncontrast CT 07/06/2022. The study demonstrated mild left (unknown) (no (unknown) (unknown) Exam Narrative (units (unknown) date) unknown) (unknown) (no (unknown) (unknown) Exam Narrative: (units (unknown) date) unknown) (unknown) (no (unknown) (unknown) Exam (units (unkno wn) date) unknown) (unknown) (no (unknown) (unknown) Gvff-oc-pbst (units (u nknown) date) encounter-40 unknown) minutes (unknown) (no (unknown) (unknown) Finished cefdinir (units (unknown) date) 30mg last night unknown) and has not started new abx Nitrofurantoin MCR (unknown) (no (unknown) (unknown) HPI (units (unkno wn) date) unknown) (unknown) (no (unknown) (unknown) Head/neck-sclera (units (unknown) date) clear pupils are unknown) equal and round. Membranes are dry. (unknown) (no (unknown) (unknown) Heart-normal rate (units (unknown) date) and rhythm. unknown) (unknown) (no (unknown) (unknown) Height 5 ft 6 in (units (unknown) date) unknown) (unknown) (no (unknown) (unknown) Hirsutism (units (unkn own) date) present. Neck is unknown) without adenopathy or JVD. Chest no audible wheeze. (unknown) (no (unknown) (unknown) Intake Note: (units (u nknown) date) unknown) (unknown) (no (unknown) (unknown) Intake performed (units (unknown) date) by: Lara Arvizu unknown) R (unknown) (no (unknown) (unknown) Intake (units (unkno wn) date) unknown) (unknown) (no (unknown) (unknown) Intake- Clincial (units (unknown) date) Staff unknown) (unknown) (no (unknown) (unknown) [facility] (units (unknown) date) unknown) (unknown) (no (unknown) (unknown) KUB 07/17/2022 is (units (unknown) date) reviewed. There is unknown) a prominent stool and gas pattern (unknown) (no (unknown) (unknown) KUB xr done this (units (unknown) date) AM at [facility]- imaging unknown) in PAX system (unknown) (no (unknown) (unknown) Left ureteral (units ( unknown) date) calculus unknown) (unknown) (no (unknown) (unknown) Loc: [facility] (units (unkno wn) date) unknown) (unknown) (no (unknown) (unknown) [facility] ([facility] (unknown) date) with complaint of unknown) severe and acute onset left flank pain. (unknown) (no (unknown) (unknown) Medical History (units (unknown) date) (Updated 07/17/22 unknown) @ 15:24 by Waqas Samuel MD) (unknown) (no (unknown) (unknown) Medications (units (un known) date) unknown) (unknown) (no (unknown) (unknown) Medications: (units (u nknown) date) unknown) (unknown) (no (unknown) (unknown) N20.0 - Calculus (units (unknown) date) of kidney unknown) (unknown) (no (unknown) (unknown) N20.1 - Calculus (units (unknown) date) of ureter unknown) (unknown) (no (unknown) (unknown) N39.0 - Urinary (units (unknown) date) tract infection, unknown) site not specified (unknown) (no (unknown) (unknown) Nephrolithiasis (units (unknown) date) unknown) (unknown) (no (unknown) (unknown) New (units (unkno wn) date) unknown) (unknown) (no (unknown) (unknown) Orders (units (unkno wn) date) unknown) (unknown) (no (unknown) (unknown) Orders: (units (unkno wn) date) unknown) (unknown) (no (unknown) (unknown) [place]-[facility]. (units (unknown) date) unknown) (unknown) (no (unknown) (unknown) Oxygen Delivery (units (unknown) date) Method nasal unknown) canula (unknown) (no (unknown) (unknown) Oxygen Flow Rate (units (unknown) date) 5 unknown) (unknown) (no (unknown) (unknown) PFSH (units (unkno wn) date) unknown) (unknown) (no (unknown) (unknown) POC Urine Dip (units ( unknown) date) Today N20.0 - unknown) Calculus of kidney (unknown) (no (unknown) (unknown) Patient: (units (unkno wn) date) Tiffany Bethea unknown) MR#: [id number] (unknown) (no (unknown) (unknown) Penicillins (units (un known) date) Allergy unknown) (Intermediate, Verified 07/17/22 09:41) (unknown) (no (unknown) (unknown) Plan (units (unkno wn) date) unknown) (unknown) (no (unknown) (unknown) Position Sitting (units (unknown) date) unknown) (unknown) (no (unknown) (unknown) Pt here by (units (unk nown) date) referral for unknown) nephrolithiasis (unknown) (no (unknown) (unknown) Pt reports hx of (units (unknown) date) kidney stones and unknown) flank pain (unknown) (no (unknown) (unknown) Pulse 105 H (units (un known) date) unknown) (unknown) (no (unknown) (unknown) Pulse Oximetry (units (unknown) date) (%) 91 unknown) (unknown) (no (unknown) (unknown) Pulse Source (units (u nknown) date) Monitor unknown) (unknown) (no (unknown) (unknown) Qualifiers: (units (un known) date) unknown) (unknown) (no (unknown) (unknown) ROS (units (unkno wn) date) unknown) (unknown) (no (unknown) (unknown) Reason For Visit (units (unknown) date) unknown) (unknown) (no (unknown) (unknown) Results (units (unkno wn) date) unknown) (unknown) (no (unknown) (unknown) Review of (units (unkn own) date) clinical chart unknown) note history, patient data, 23 pages of clinical (unknown) (no (unknown) (unknown) Reviewed (units (unkno wn) date) findings, unknown) discussed impression, and likelihood as spontaneous stone (unknown) (no (unknown) (unknown) Right proximally (units (unknown) date) 22. unknown) (unknown) (no (unknown) (unknown) She denies fever (units (unknown) date) ongoing flank pain unknown) or chills. Urine culture of same date grew (unknown) (no (unknown) (unknown) She is a thin, (units (unknown) date) chronically ill unknown) appearing woman in a wheeled chair and in no (unknown) (no (unknown) (unknown) Signed By: (units (unk nown) date) <Electronically unknown) signed by Waqas Samuel MD> (unknown) (no (unknown) (unknown) Signed (units (unkno wn) date) unknown) (unknown) (no (unknown) (unknown) Status: Acute (units ( unknown) date) unknown) (unknown) (no (unknown) (unknown) This note may (units ( unknown) date) have been all or unknown) partially generated using voice recognition (unknown) (no (unknown) (unknown) UTI (urinary (units (u nknown) date) tract infection) unknown) (unknown) (no (unknown) (unknown) Urinalysis today (units (unknown) date) demonstrates 1+ unknown) leukocytes, otherwise clear (unknown) (no (unknown) (unknown) Urinary tract (units ( unknown) date) infection type: unknown) site unspecified Hematuria presence: (unknown) (no (unknown) (unknown) Urine Appearance (units (unknown) date) Cloudy Last Edit unknown) by Lara Arvizu LPN on 07/17/22 10:5 (unknown) (no (unknown) (unknown) Urine Bilirubin (units (unknown) date) Negative Last Edit unknown) by Lara Arvizu LPN on 07/17/22 10: (unknown) (no (unknown) (unknown) Urine Blood (units (un known) date) Negative Last Edit unknown) by Lara Arvizu LPN on 07/17/22 10:53 (unknown) (no (unknown) (unknown) Urine Color (units (un known) date) Yellow Last Edit unknown) by Lara Arvizu LPN on 07/17/22 10:53 (unknown) (no (unknown) (unknown) Urine Dipstick (units (unknown) date) unknown) (unknown) (no (unknown) (unknown) Urine Glucose (units ( unknown) date) Negative mg/dL unknown) Last Edit by Lara Arvizu LPN on 07/17/22 (unknown) (no (unknown) (unknown) Urine Ketones (units ( unknown) date) Negative Last Edit unknown) by Lara Arvizu LPN on 07/17/22 10:53 (unknown) (no (unknown) (unknown) Urine Leukocyte (units (unknown) date) Esterase 1+ 70 unknown) Danni/uL Last Edit by Lara Arvizu LPN on (unknown) (no (unknown) (unknown) Urine Nitrate (units ( unknown) date) Negative Last Edit unknown) by Lara Arvizu LPN on 07/17/22 10:53 (unknown) (no (unknown) (unknown) Urine Protein (units ( unknown) date) Negative Last Edit unknown) by Lara Arvizu LPN on 07/17/22 10:53 (unknown) (no (unknown) (unknown) Urine Specific (units (unknown) date) Phoenix 1.015 Last unknown) Edit by Lara Arvizu LPN on 07/17/22 (unknown) (no (unknown) (unknown) Urine (units (unkno wn) date) Urobilinogen - 0.2 unknown) mg/dL Last Edit by Lara Arvizu LPN on (unknown) (no (unknown) (unknown) Urine pH 6.0 Last (units (unknown) date) Edit by Lara Arvizu LPN on 07/17/22 10:53 (unknown) (no (unknown) (unknown) Urology Office (units (unknown) date) Visit unknown) (unknown) (no (unknown) (unknown) 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) - Nephrolithiasis, unknown) [facility] URGENT (unknown) (no (unknown) (unknown) Vitals (units (unkno wn) date) unknown) (unknown) (no (unknown) (unknown) We will need to (units (unknown) date) proceed with unknown) intervention for lack of progression of stone (unknown) (no (unknown) (unknown) Weight 105 lb (units ( unknown) date) unknown) (unknown) (no (unknown) (unknown) [History (units (unkno wn) date) Confirmed unknown) 07/17/22] (unknown) (no (unknown) (unknown) acetaminophen 325 (units (unknown) date) mg tablet 650 mg unknown) PO Q6H PRN 07/17/22 [History Confirmed (unknown) (no (unknown) (unknown) acute distress (units (unknown) date) but labored unknown) breathing on 5 L oxygen per nasal cannula! (unknown) (no (unknown) (unknown) aspirin 81 mg (units ( unknown) date) tablet,delayed unknown) release (Adult Aspirin Regimen) 81 mg PO DAILY (unknown) (no (unknown) (unknown) ay occur. (units (unkn own) date) Occasional unknown) wrong-word or 'sound-alike' substitutions may have (unknown) (no (unknown) (unknown) cefdinir 300 mg (units (unknown) date) capsule 300 mg PO unknown) BID 07/17/22 [History Confirmed 07/17/22] (unknown) (no (unknown) (unknown) collecting (units (unk nown) date) system. Despite unknown) request from [facility] images have not yet been (unknown) (no (unknown) (unknown) coordinated with (units (unknown) date) her PCP to unknown) continue without interruption to nitrofurantoin 100 (unknown) (no (unknown) (unknown) diltiazem HCl 240 (units (unknown) date) mg capsule,24 unknown) hr,extended release 240 mg PO DAILY 07/17/22 (unknown) (no (unknown) (unknown) fluconazole 150 (units (unknown) date) mg tablet 150 mg unknown) PO ONCE 07/17/22 [History Confirmed 07/17/22] (unknown) (no (unknown) (unknown) friend, Keyshawn, for (units (unknown) date) opinion unknown) regarding recent presentation to [facility] (unknown) (no (unknown) (unknown) furosemide 40 mg (units (unknown) date) tablet (Lasix) 40 unknown) mg PO DAILY 07/17/22 [History Confirmed (unknown) (no (unknown) (unknown) have occurred. If (units (unknown) date) there are any unknown) questions, please contact the Medical Records (unknown) (no (unknown) (unknown) hydro nephrosis, (units (unknown) date) and a 6 x 4 mm unknown) left ureterovesical junction calculus. (unknown) (no (unknown) (unknown) initiated with (units (unknown) date) cefdinir 300 mg unknown) b.i.d.. She is completing that and I had (unknown) (no (unknown) (unknown) irregular (units (unkno wn) date) radiopaque density unknown) in the vicinity of the left ureterovesical junction (unknown) (no (unknown) (unknown) losartan 50 mg (units (unknown) date) tablet (Cozaar) 50 unknown) mg PO BID 07/17/22 [History Confirmed (unknown) (no (unknown) (unknown) meperidine [From (units (unknown) date) Demerol] Adverse unknown) Reaction (Intermediate, Verified 07/17/22 (unknown) (no (unknown) (unknown) mg p.o. at HS for (units (unknown) date) 60 days. unknown) (unknown) (no (unknown) (unknown) obscuring much (units (unknown) date) visualization of unknown) the urinary tract. However, there is an (unknown) (no (unknown) (unknown) occurred due to (units (unknown) date) the inherent unknown) limitations of voice recognition software. Please (unknown) (no (unknown) (unknown) outside history, (units (unknown) date) laboratory, and unknown) imaging reports for encounter-15 minutes (unknown) (no (unknown) (unknown) passage and or (units (unknown) date) clinical unknown) deterioration related to recent history of E coli UTI. (unknown) (no (unknown) (unknown) passage with MET (units (unknown) date) (medical expulsion unknown) therapy). Explained that she is at high (unknown) (no (unknown) (unknown) piroxicam [From (units (unknown) date) Feldene] Allergy unknown) (Intermediate, Verified 07/17/22 09:41) (unknown) (no (unknown) (unknown) potassium (units (unkn own) date) chloride 10 mEq unknown) tablet,extended release (Klor-Con) 10 meq PO DAILY (unknown) (no (unknown) (unknown) pushed into (units (un known) date) [place] P[facility] for unknown) review. (unknown) (no (unknown) (unknown) read the note (units ( unknown) date) carefully and unknown) recognize, using context, where these substitutions (unknown) (no (unknown) (unknown) repeat KUB. (units (un known) date) unknown) (unknown) (no (unknown) (unknown) reports that she (units (unknown) date) had no further unknown) pain following her evaluation in the ED. (unknown) (no (unknown) (unknown) risk for surgical (units (unknown) date) and anesthetic unknown) intervention and current stone has at least a (unknown) (no (unknown) (unknown) software. (units (unkn own) date) Although every unknown) effort is made to edit content, combination machine tender errors m (unknown) (no (unknown) (unknown) specified (units (unkn own) date) unknown) (unknown) (no (unknown) (unknown) tamsulosin 0.4 mg (units (unknown) date) PO BEDTIME 90 caps unknown) 3RF (unknown) (no (unknown) (unknown) tamsulosin 0.4 mg (units (unknown) date) capsule (Flomax) unknown) 0.4 mg PO DAILY 07/17/22 [History Confirmed (unknown) (no (unknown) (unknown) tamsulosin 0.4 mg (units (unknown) date) capsule 0.4 mg PO unknown) BEDTIME #90 caps 07/17/22 [Rx Confirmed (unknown) (no (unknown) (unknown) terbinafine HCl (units (unknown) date) 250 mg tablet 250 unknown) mg PO DAILY 07/17/22 [History Confirmed (unknown) (no (unknown) (unknown) that likely (units (un known) date) represents the unknown) index calculus seen on CT recently. The patient (unknown) (no (unknown) (unknown) tiotropium (units (unk nown) date) bromide 18 mcg unknown) capsule with inhalation device 1 cap inhalation DAILY (unknown) (no (unknown) (unknown) to early (units (unkno wn) date) antibiotic unknown) intervention in setting of mild hydro secondary to stone. (unknown) (no (unknown) (unknown) which she should (units (unknown) date) contact [place]) Urology. (unknown) (no (unknown) (unknown) without hematuria (units (unknown) date) Qualified Code(s): unknown) N39.0 - Urinary tract infection, site not Social History date description facility 2022-07-17 00:00 Unknown if ever smoked [facility] Vital Signs date measurement value units 2022-07-17 00:00 BMI 16.9 kg/m2 2022-07-17 00:00 BP_diastolic 68 mmHg 2022-07-17 00:00 BP_systolic 123 mmHg 2022-07-17 00:00 heart_rate 105 /min 2022-07-17 00:00 height_metric 167.64 cm 2022-07-17 00:00 height_standard 66 in 2022-07-17 00:00 o2_saturation 91 % 2022-07-17 00:00 weight_metric 47.62 kg 2022-07-17 00:00 weight_standard 104.98 lb
[2022-07-20 21:34] LABS: BASOPHILS # (AUTO) 0.1 10^3/uL (0.0-0.1); BASOPHILS % (AUTO) 0.7 %; EOSINOPHILS # (AUTO) 0.6 10^3/uL (0.0-0.7); EOSINOPHILS % (AUTO) 8.1 %; HCT - HEMATOCRIT 42.1 % (37.0-47.0); HGB - HEMOGLOBIN 12.9 g/dL (12.0-16.0); LYMPHOCYTES # (AUTO) 1.1 10^3/uL (1.5-3.5); LYMPHOCYTES % (AUTO) 15.5 %; MEAN CORPUSCULAR HEMOGLOBIN 28.5 pg (27.0-31.0); MEAN CORPUSCULAR HGB CONC 30.6 g/dL (32.0-36.0); MEAN CORPUSCULAR VOLUME 93.1 fL (81.0-99.0); MEAN PLATELET VOLUME 10.5 fL (7.9-10.8); MONOCYTES # (AUTO) 0.6 10^3/uL (0.0-1.0); MONOCYTES % (AUTO) 8.3 %; NEUTROPHILS # (AUTO) 4.6 10^3/uL (1.5-6.6); NEUTROPHILS % (AUTO) 67.3 %; PLT - PLATELET COUNT 243 10^3/uL (130-450); RED BLOOD COUNT 4.52 10^6/uL (4.20-5.40); RED CELL DISTRIBUTION WIDTH 12.6 % (12.0-15.0); WHITE BLOOD COUNT 6.9 x10^3/uL (4.8-10.8)
[2022-07-20 21:39] LABS: CREATININE 0.8 mg/dL (0.4-1.0); POTASSIUM 4.1 mmol/L (3.5-5.0)
--- NOTE | 2022-07-20 22:21 | XRAY Report ---
PROCEDURE: Chest 2 View X-Ray INDICATIONS: dyspnea, cough TECHNIQUE: 2 views of the chest were acquired. COMPARISON: Chest x-ray 05/19/2022. FINDINGS: Surgical changes and devices: None. Lungs and pleura: No pleural effusions or pneumothorax. No acute consolidation. There are peripheral linear opacities within the left upper lung zone consistent with atelectasis. There is hyperinflatio n of the lungs with flattening of the hemidiaphragms compatible with COPD. Mediastinum: Mediastinal contours appear normal. Heart size is normal. Bones and chest wall: No suspicious bony lesions. Overlying soft tissues appear unremarkable. IMPRESSION: 1. Findings compatible with COPD redemonstrated. 2. No evidence of pneumonia. Reviewed by: Star Grijalva MD on 07/20/2022 10:20 PM PDT Approved by: Star Grijalva MD on 07/20/2022 10:20 PM PDT Station ID: [id number]
[2022-07-20 22:51] LABS: B. PARAPERTUSSIS- RESP PCR PAN NOT DETECTED; B. PERTUSSIS- RESP PCR PANEL NOT DETECTED; C. PNEUMONIAE- RESP PCR PANEL NOT DETECTED; CORONAVIRUS 229E-RESP PCR NOT DETECTED; CORONAVIRUS HKU1-RESP PCR NOT DETECTED; CORONAVIRUS NL63-RESP PCR NOT DETECTED; CORONAVIRUS OC43-RESP PCR NOT DETECTED; HUMAN METAPNEUMOVIRUS NOT DETECTED; INFLUENZA A- RESP PCR PANEL NOT DETECTED; INFLUENZA B - RESP PCR PANEL NOT DETECTED; M. PNEUMONIAE- RESP PCR PANEL NOT DETECTED; PARAINFLUENZA VIRUS 1 NOT DETECTED; PARAINFLUENZA VIRUS 2 NOT DETECTED; PARAINFLUENZA VIRUS 3 NOT DETECTED; PARAINFLUENZA VIRUS 4 NOT DETECTED; RHINOVIRUS/ENTEROVIRUS NOT DETECTED; RSV- RESP PCR PANEL NOT DETECTED; SARS-CoV-2 -RESP PCR PANEL NOT DETECTED
[2022-07-20] MEDS ORDERED: AZITHROMYCIN 250 MG TABLET PO STA (23:26)
[2022-07-21 01:06] VITALS: BP 140/89
== END 2022-07-21 01:05 | disposition home or self-care (01) ==
LOC: EDUNIT# → ED 20:36
DX: J44.1 Chronic obstructive pulmonary disease with (acute) exacerbation (principal); J40 Bronchitis, not specified as acute or chronic; Z20.822 Contact with and (suspected) exposure to COVID-19; Z99.81 Dependence on supplemental oxygen
CPT/HCPCS: 36415; 71046; 80048; 83880; 85025; 87633; 96374; 99284; A9270

== ENCOUNTER 2022-07-21 01:07 | Outpatient (CLI) | payer MEDICARE, OTHER | END 2022-07-21 23:59 | disposition home or self-care (01) | LOC: EMS 01:07 | PROVIDERS: ATTEND Emergency Medicine | DX: J44.9 Chronic obstructive pulmonary disease, unspecified (principal); Z99.81 Dependence on supplemental oxygen | CPT/HCPCS: A0425; A0428 ==

== ENCOUNTER 2022-08-09 08:00 | Outpatient (CLI) | payer MEDICARE, OTHER ==
--- NOTE | 2022-08-08 16:08 | XRAY Report ---
PROCEDURE: Hip 2 View LT INDICATIONS: LEFT HIP FRACTURE WITH FIXATION TECHNIQUE: 2 views of the hip were acquired. COMPARISON: None. FINDINGS: Bones: No acute fractures or dislocations. No suspicious bony lesions. Stable appearance of left hip fixation. Hardware is intact without evidence of hardware fracture or periprosthetic lucency to s uggest loosening. There remains good anatomic alignment and fracture lucencies are less visible. Soft tissues: No suspicious soft tissue calcifications or masses. IMPRESSION: Stable appearance of left femoral fixation. Reviewed by: Verena Cordero MD on 08/08/2022 4:07 PM PDT Approved by: Verena Cordero MD on 08/08/2022 4:07 PM PDT Station ID: [id number]
== END 2022-08-09 23:59 | disposition home or self-care (01) ==
LOC: DI.WOS 08:00
PROVIDERS: ATTEND Physician Assistant Surgical
DX: M25.552 Pain in left hip (principal); S72.002S Fracture of unspecified part of neck of left femur, sequela

== ENCOUNTER 2022-08-13 15:21 | Outpatient (CLI) | payer MEDICARE, OTHER | END 2022-08-13 15:22 | disposition critical access hospital (66) | LOC: EMS 15:21 | DX: R53.83 Other fatigue (principal); R39.89 Other symptoms and signs involving the genitourinary system; W06.XXXA Fall from bed, initial encounter; Y92.003 Bedroom of unspecified non-institutional (private) residence as the place of occurrence of the external cause; Z74.09 Other reduced mobility | CPT/HCPCS: A0425; A0429 ==

== ENCOUNTER 2022-08-13 15:45 | Inpatient (IN) | payer MEDICARE, OTHER ==
--- OUTSIDE RECORDS SUMMARY | 2022-08-13 16:03 | EXTERNAL MEDICAL SUMMARY RPT | Continuity of Care Document ---
Author Name Unknown Address [address] [place] [address] Phone Organization [facility] Address [address] [place] [address] Phone Care Team Providers Care Utility Division Project Manager Name Role Phone Gina Pete Unavailable Unavailable Medications date description facility 2022-07-17 00:00 Fluconazole [facility] 2022-07-17 00:00 Cefdinir [facility] 2022-07-17 00:00 Aspirin [facility] 2022-07-17 00:00 Terbinafine Hcl [facility] 2022-07-17 00:00 Acetaminophen [facility] 2022-07-17 00:00 Furosemide [facility] 2022-07-17 00:00 Tiotropium [place] [facility] 2022-07-17 00:00 Potassium Chloride [facility] 2022-07-17 00:00 Diltiazem Hcl [facility] 2022-07-17 00:00 Tamsulosin [facility] 2022-07-17 00:00 [facility] Problems date description facility 2022-07-17 10:18 Calculus of kidney [facility] 2022-07-17 11:04 Calculus of kidney [facility] Procedures date description facility 2022-07-17 00:00 XR KUB [facility] Results/Labs test date author facility value unit interpretation Result panel 1 (unknown) (no date) (unknown) (unknown) (no value) (units unknown) (unknown) (unknown) (no date) (unknown) (unknown) [id number] (units unknown) (unknown) (unknown) (no date) (unknown) (unknown) 07/17/22 (units unknown) (unknown) (unknown) (no date) (unknown) (unknown) [address] [place] [address] (un its unknown) (unknown) (unknown) (no date) (unknown) (unknown) Accession Numb er: [id number] (units unknown) (unknown) (unknown) (no date) (unknown) (unknown) Age/Sex: 81 / F Date of Service: (units unknown) (unknown) (unknown) (no date) (unknown) (unknown) [place] Art[place] [id number] (units unknown) (unknown) (unknown) (no date) (unknown) (unknown) Approved by: Travis Cordero M.D. on 07/17/2022 at 12:22 (units unknown) (unknown) (unknown) (no date) (unknown) (unknown) Bones: No susp icious bony lesions. There is rightward scoliotic curvature of (units unknown) (unknown) (unknown) (no date) (unknown) (unknown) Bowel: Bowel g as pattern is normal. (units unknown) (unknown) (unknown) (no date) (unknown) (unknown) COMPARISON: [facility], , [place] KUB, 07/06/2022, 14:57. (units unknown) (unknown) (unknown) (no date) (unknown) (unknown) Calcifications within the pelvis with the largest in the inferior pelvis (units unknown) (unknown) (unknown) (no date) (unknown) (unknown) : 0 Acct:[id number] (units unknown) (unknown) (unknown) (no date) (unknown) (unknown) Dictated by: Travis Cordero M.D. on 07/17/2022 at 12:16 (units unknown) (unknown) (unknown) (no date) (unknown) (unknown) FINDINGS: (units unknown) (unknown) (unknown) (no date) (unknown) (unknown) IMPRESSION: (units unknown) (unknown) (unknown) (no date) (unknown) (unknown) INDICATIONS: travis orta (units unknown) (unknown) (unknown) (no date) (unknown) (unknown) [facility] (uni ts unknown) (unknown) (unknown) (no date) (unknown) (unknown) Loc: RAD (units unknown) (unknown) (unknown) (no date) (unknown) (unknown) Ordering Provi jase: Waqas Samuel MD (units unknown) (unknown) (unknown) (no date) (unknown) (unknown) PROCEDURE: XR KUB (u nits unknown) (unknown) (unknown) (no date) (unknown) (unknown) Patient: Tiffany Bethea MR#: [id number] (units unknown) (unknown) (unknown) (no date) (unknown) (unknown) Procedure: XR KUB (u nits unknown) (unknown) (unknown) (no date) (unknown) (unknown) Signed (units unknown) (unknown) (unknown) (no date) (unknown) (unknown) Soft tissues: There remain a cluster of calcifications overlying the right (units unknown) (unknown) (unknown) (no date) (unknown) (unknown) Surgical martini es and devices: None. (units unknown) (unknown) (unknown) (no date) (unknown) (unknown) TECHNIQUE: One view of the abdomen acquired. (units unknown) (unknown) (unknown) (no date) (unknown) (unknown) XRay Report (units unknown) (unknown) (unknown) (no date) (unknown) (unknown) appearing to be (uni ts unknown) (unknown) (unknown) (no date) (unknown) (unknown) appearing unch anged compared to prior exam. There is a calcification in the (units unknown) (unknown) (unknown) (no date) (unknown) (unknown) calcification (units unknown) (unknown) (unknown) (no date) (unknown) (unknown) contours appea r normal in size. (units unknown) (unknown) (unknown) (no date) (unknown) (unknown) identified at the ureterovesicular junction on prior exam. Visualized solid (units unknown) (unknown) (unknown) (no date) (unknown) (unknown) junction (units unknown) (unknown) (unknown) (no date) (unknown) (unknown) left lower (units unknown) (unknown) (unknown) (no date) (unknown) (unknown) more anterior compared to location at the calcification at the ureterovesicular (units unknown) (unknown) (unknown) (no date) (unknown) (unknown) on prior exam. There is suspicion that the calcification is no longer present. (units unknown) (unknown) (unknown) (no date) (unknown) (unknown) organ (units unknown) (unknown) (unknown) (no date) (unknown) (unknown) pelvis. This a ppears to be more inferior than the expected course of the (units unknown) (unknown) (unknown) (no date) (unknown) (unknown) renal shadow (units unknown) (unknown) (unknown) (no date) (unknown) (unknown) spine (units unknown) (unknown) (unknown) (no date) (unknown) (unknown) the lumbar (units unknown) (unknown) (unknown) (no date) (unknown) (unknown) with apex at L2. (un its unknown) (unknown) Result panel 2 (unknown) (no date) (unknown) (unknown) (no value) (units unknown) (unknown) (unknown) (no date) (unknown) (unknown) 07/14/22 (units unknown) (unknown) (unknown) (no date) (unknown) (unknown) 07/17/22 [Hist ory Confirmed 07/17/22] (units unknown) (unknown) (unknown) (no date) (unknown) (unknown) 07/17/22] (units unknown) (unknown) (unknown) (no date) (unknown) (unknown) 09:41) (units unknown) (unknown) (unknown) (no date) (unknown) (unknown) [id number] (units unknown) (unknown) (unknown) (no date) (unknown) (unknown) Age/Sex: 81 / F Date of Service: (units unknown) (unknown) (unknown) (no date) (unknown) (unknown) Allergies (units unknown) (unknown) (unknown) (no date) (unknown) (unknown) [place] [address] (units unknown) (unknown) (unknown) (no date) (unknown) (unknown) Assessment + Plan (u nits unknown) (unknown) (unknown) (no date) (unknown) (unknown) Attending Dr: Waqas Samuel MD (units unknown) (unknown) (unknown) (no date) (unknown) (unknown) : 0 Acct:[id number] (units unknown) (unknown) (unknown) (no date) (unknown) (unknown) Dept at . (units unknown) (unknown) (unknown) (no date) (unknown) (unknown) Documented By: Waqas Samuel MD 07/17/22 1052 (units unknown) (unknown) (unknown) (no date) (unknown) (unknown) Draft (units unknown) (unknown) (unknown) (no date) (unknown) (unknown) Intake Note: (units unknown) (unknown) (unknown) (no date) (unknown) (unknown) Intake perform ed by: Lara Arvizu (units unknown) (unknown) (unknown) (no date) (unknown) (unknown) Intake (units unknown) (unknown) (unknown) (no date) (unknown) (unknown) Intake- Clinci al Staff (units unknown) (unknown) (unknown) (no date) (unknown) (unknown) [facility] (unit s unknown) (unknown) (unknown) (no date) (unknown) (unknown) KUB xr done th is AM at - imaging in PAX system (units unknown) (unknown) (unknown) (no date) (unknown) (unknown) Loc: URO (units unknown) (unknown) (unknown) (no date) (unknown) (unknown) Medications (units unknown) (unknown) (unknown) (no date) (unknown) (unknown) Orders (units unknown) (unknown) (unknown) (no date) (unknown) (unknown) Orders: (units unknown) (unknown) (unknown) (no date) (unknown) (unknown) POC Urine Dip Today N20.0 - Calculus of kidney (units unknown) (unknown) (unknown) (no date) (unknown) (unknown) Patient: Tiffany Bethea MR#: [id number] (units unknown) (unknown) (unknown) (no date) (unknown) (unknown) Penicillins Kemal yates (Intermediate, Verified 07/17/22 09:41) (units unknown) (unknown) (unknown) (no date) (unknown) (unknown) Pt here by ref erral for nephrolithiasis (units unknown) (unknown) (unknown) (no date) (unknown) (unknown) Pt reports hx of kidney stones and flank pain (units unknown) (unknown) (unknown) (no date) (unknown) (unknown) Reason For Visit (un its unknown) (unknown) (unknown) (no date) (unknown) (unknown) Signed By: (units unknown) (unknown) (unknown) (no date) (unknown) (unknown) This note may have been all or partially generated using voice recognition (units unknown) (unknown) (unknown) (no date) (unknown) (unknown) Urology Office Visit (units unknown) (unknown) (unknown) (no date) (unknown) (unknown) 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, 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 (units unknown) (unknown) (unknown) (no date) (unknown) (unknown) [History Confi rmed 07/17/22] (units unknown) (unknown) (unknown) (no date) (unknown) (unknown) acetaminophen 325 mg tablet 650 mg PO Q6H PRN 07/17/22 [History Confirmed (units unknown) (unknown) (unknown) (no date) (unknown) (unknown) aspirin 81 mg tablet,delayed release (Adult Aspirin Regimen) 81 mg PO DAILY (units unknown) (unknown) (unknown) (no date) (unknown) (unknown) cefdinir 300 m g capsule 300 mg PO BID 07/17/22 [History Confirmed 07/17/22] (units unknown) (unknown) (unknown) (no date) (unknown) (unknown) diltiazem HCl 240 mg capsule,24 hr,extended release 240 mg PO DAILY 07/17/22 (units unknown) (unknown) (unknown) (no date) (unknown) (unknown) fluconazole 15 0 mg tablet 150 mg PO ONCE 07/17/22 [History Confirmed 07/17/22] (units unknown) (unknown) (unknown) (no date) (unknown) (unknown) furosemide 40 mg tablet (Lasix) 40 mg PO DAILY 07/17/22 [History Confirmed (units unknown) (unknown) (unknown) (no date) (unknown) (unknown) have occurred. If there are any questions, please contact the Medical Records (units unknown) (unknown) (unknown) (no date) (unknown) (unknown) losartan 50 mg tablet (Cozaar) 50 mg PO BID 07/17/22 [History Confirmed (units unknown) (unknown) (unknown) (no date) (unknown) (unknown) may occur. Occ asional wrong-word or 'sound-alike' substitutions may have (units unknown) (unknown) (unknown) (no date) (unknown) (unknown) meperidine [Fr om Demerol] Adverse Reaction (Intermediate, Verified 07/17/22 (units unknown) (unknown) (unknown) (no date) (unknown) (unknown) occurred due t o the inherent limitations of voice recognition software. Please (units unknown) (unknown) (unknown) (no date) (unknown) (unknown) piroxicam [Fro m Feldene] Allergy (Intermediate, Verified 07/17/22 09:41) (units unknown) (unknown) (unknown) (no date) (unknown) (unknown) potassium chlo ride 10 mEq tablet,extended release (Klor-Con) 10 meq PO DAILY (units unknown) (unknown) (unknown) (no date) (unknown) (unknown) read the note carefully and recognize, using context, where these substitutions (units unknown) (unknown) (unknown) (no date) (unknown) (unknown) software. Alth ough every effort is made to edit content, winderman errors (units unknown) (unknown) (unknown) (no date) (unknown) (unknown) tamsulosin 0.4 mg capsule (Flomax) 0.4 mg PO DAILY 07/17/22 [History Confirmed (units unknown) (unknown) (unknown) (no date) (unknown) (unknown) terbinafine HC l 250 mg tablet 250 mg PO DAILY 07/17/22 [History Confirmed (units unknown) (unknown) (unknown) (no date) (unknown) (unknown) tiotropium bro mide 18 mcg capsule with inhalation device 1 cap inhalation DAILY (units unknown) (unknown) Result panel 3 (unknown) (no date) (unknown) (unknown) (no value) (units unknown) (unknown) (unknown) (no date) (unknown) (unknown) 07/17/22 10:53 (unit s unknown) (unknown) (unknown) (no date) (unknown) (unknown) 07/17/22 [Hist ory Confirmed 07/17/22] (units unknown) (unknown) (unknown) (no date) (unknown) (unknown) 07/17/22 (units unknown) (unknown) (unknown) (no date) (unknown) (unknown) 07/17/22] (units unknown) (unknown) (unknown) (no date) (unknown) (unknown) 09:41) (units unknown) (unknown) (unknown) (no date) (unknown) (unknown) 100mg yet (units unknown) (unknown) (unknown) (no date) (unknown) (unknown) 10:53 (units unknown) (unknown) (unknown) (no date) (unknown) (unknown) 11:05 (units unknown) (unknown) (unknown) (no date) (unknown) (unknown) 3 (units unknown) (unknown) (unknown) (no date) (unknown) (unknown) [id number] (units unknown) (unknown) (unknown) (no date) (unknown) (unknown) 53 (units unknown) (unknown) (unknown) (no date) (unknown) (unknown) Age/Sex: 81 / F Date of Service: (units unknown) (unknown) (unknown) (no date) (unknown) (unknown) Allergies (units unknown) (unknown) (unknown) (no date) (unknown) (unknown) [place] [id number] (units unknown) (unknown) (unknown) (no date) (unknown) (unknown) Assessment + Plan (u nits unknown) (unknown) (unknown) (no date) (unknown) (unknown) Attending Dr: Waqas Samuel MD (units unknown) (unknown) (unknown) (no date) (unknown) (unknown) BMI 16.9 (units unknown) (unknown) (unknown) (no date) (unknown) (unknown) BP 123/68 (units unknown) (unknown) (unknown) (no date) (unknown) (unknown) Blood Pressure Location Lt brachial (units unknown) (unknown) (unknown) (no date) (unknown) (unknown) : 0 Acct:[id number] (units unknown) (unknown) (unknown) (no date) (unknown) (unknown) Dept at . (units unknown) (unknown) (unknown) (no date) (unknown) (unknown) Documented By: Waqas Samuel MD 07/17/22 1052 (units unknown) (unknown) (unknown) (no date) (unknown) (unknown) Draft (units unknown) (unknown) (unknown) (no date) (unknown) (unknown) Finished cefdi gillian 30mg last night and has not started new abx Nitrofurantoin MCR (units unknown) (unknown) (unknown) (no date) (unknown) (unknown) Height 5 ft 6 in (un its unknown) (unknown) (unknown) (no date) (unknown) (unknown) Intake Note: (units unknown) (unknown) (unknown) (no date) (unknown) (unknown) Intake perform ed by: Lara Arvizu (units unknown) (unknown) (unknown) (no date) (unknown) (unknown) Intake (units unknown) (unknown) (unknown) (no date) (unknown) (unknown) Intake- Clinci al Staff (units unknown) (unknown) (unknown) (no date) (unknown) (unknown) [facility] (unit s unknown) (unknown) (unknown) (no date) (unknown) (unknown) KUB xr done th is AM at - imaging in PAX system (units unknown) (unknown) (unknown) (no date) (unknown) (unknown) Loc: URO (units unknown) (unknown) (unknown) (no date) (unknown) (unknown) Medications (units unknown) (unknown) (unknown) (no date) (unknown) (unknown) Orders (units unknown) (unknown) (unknown) (no date) (unknown) (unknown) Orders: (units unknown) (unknown) (unknown) (no date) (unknown) (unknown) Oxygen Deliver y Method nasal canula (units unknown) (unknown) (unknown) (no date) (unknown) (unknown) Oxygen Flow Rate 5 ( units unknown) (unknown) (unknown) (no date) (unknown) (unknown) POC Urine Dip Today N20.0 - Calculus of kidney (units unknown) (unknown) (unknown) (no date) (unknown) (unknown) Patient: Tiffany Bethea MR#: [id number] (units unknown) (unknown) (unknown) (no date) (unknown) (unknown) Penicillins Kemal yates (Intermediate, Verified 07/17/22 09:41) (units unknown) (unknown) (unknown) (no date) (unknown) (unknown) Position Sitting (un its unknown) (unknown) (unknown) (no date) (unknown) (unknown) Pt here by ref erral for nephrolithiasis (units unknown) (unknown) (unknown) (no date) (unknown) (unknown) Pt reports hx of kidney stones and flank pain (units unknown) (unknown) (unknown) (no date) (unknown) (unknown) Pulse 105 H (units unknown) (unknown) (unknown) (no date) (unknown) (unknown) Pulse Oximetry (%) 9 1 (units unknown) (unknown) (unknown) (no date) (unknown) (unknown) Pulse Source Monitor (units unknown) (unknown) (unknown) (no date) (unknown) (unknown) Reason For Visit (un its unknown) (unknown) (unknown) (no date) (unknown) (unknown) Results (units unknown) (unknown) (unknown) (no date) (unknown) (unknown) Signed By: (units unknown) (unknown) (unknown) (no date) (unknown) (unknown) This note may have been all or partially generated using voice recognition (units unknown) (unknown) (unknown) (no date) (unknown) (unknown) Urine Appearan ce Cloudy Last Edit by Lara Arvizu LPN on 07/17/22 10:5 (units unknown) (unknown) (unknown) (no date) (unknown) (unknown) Urine Bilirubi n Negative Last Edit by Lara Arvizu LPN on 07/17/22 10: (units unknown) (unknown) (unknown) (no date) (unknown) (unknown) Urine Blood Ne gative Last Edit by Lara Arvizu LPN on 07/17/22 10:53 (units unknown) (unknown) (unknown) (no date) (unknown) (unknown) Urine Color Ye llow Last Edit by Lara Arvizu LPN on 07/17/22 10:53 (units unknown) (unknown) (unknown) (no date) (unknown) (unknown) Urine Dipstick (unit s unknown) (unknown) (unknown) (no date) (unknown) (unknown) Urine Glucose Negative mg/dL Last Edit by Lara Arvizu LPN on 07/17/22 (units unknown) (unknown) (unknown) (no date) (unknown) (unknown) Urine Ketones Negative Last Edit by Lara Arvizu LPN on 07/17/22 10:53 (units unknown) (unknown) (unknown) (no date) (unknown) (unknown) Urine Leukocyt e Esterase 1+ 70 Danni/uL Last Edit by Lara Arvizu LPN on (units unknown) (unknown) (unknown) (no date) (unknown) (unknown) Urine Nitrate Negative Last Edit by Lara Arvizu LPN on 07/17/22 10:53 (units unknown) (unknown) (unknown) (no date) (unknown) (unknown) Urine Protein Negative Last Edit by Lara Arvizu LPN on 07/17/22 10:53 (units unknown) (unknown) (unknown) (no date) (unknown) (unknown) Urine Specific [place] 1.015 Last Edit by Lara Arvizu LPN on 07/17/22 (units unknown) (unknown) (unknown) (no date) (unknown) (unknown) Urine Urobilin ogen - 0.2 mg/dL Last Edit by Lara Arvizu LPN on (units unknown) (unknown) (unknown) (no date) (unknown) (unknown) Urine pH 6.0 L ast Edit by Lara Arvizu LPN on 07/17/22 10:53 (units unknown) (unknown) (unknown) (no date) (unknown) (unknown) Urology Office Visit (units unknown) (unknown) (unknown) (no date) (unknown) (unknown) 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, 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 (units unknown) (unknown) (unknown) (no date) (unknown) (unknown) Vitals (units unknown) (unknown) (unknown) (no date) (unknown) (unknown) Weight 105 lb (units unknown) (unknown) (unknown) (no date) (unknown) (unknown) [History Confi rmed 07/17/22] (units unknown) (unknown) (unknown) (no date) (unknown) (unknown) acetaminophen 325 mg tablet 650 mg PO Q6H PRN 07/17/22 [History Confirmed (units unknown) (unknown) (unknown) (no date) (unknown) (unknown) aspirin 81 mg tablet,delayed release (Adult Aspirin Regimen) 81 mg PO DAILY (units unknown) (unknown) (unknown) (no date) (unknown) (unknown) cefdinir 300 m g capsule 300 mg PO BID 07/17/22 [History Confirmed 07/17/22] (units unknown) (unknown) (unknown) (no date) (unknown) (unknown) diltiazem HCl 240 mg capsule,24 hr,extended release 240 mg PO DAILY 07/17/22 (units unknown) (unknown) (unknown) (no date) (unknown) (unknown) fluconazole 15 0 mg tablet 150 mg PO ONCE 07/17/22 [History Confirmed 07/17/22] (units unknown) (unknown) (unknown) (no date) (unknown) (unknown) furosemide 40 mg tablet (Lasix) 40 mg PO DAILY 07/17/22 [History Confirmed (units unknown) (unknown) (unknown) (no date) (unknown) (unknown) have occurred. If there are any questions, please contact the Medical Records (units unknown) (unknown) (unknown) (no date) (unknown) (unknown) losartan 50 mg tablet (Cozaar) 50 mg PO BID 07/17/22 [History Confirmed (units unknown) (unknown) (unknown) (no date) (unknown) (unknown) may occur. Occ asional wrong-word or 'sound-alike' substitutions may have (units unknown) (unknown) (unknown) (no date) (unknown) (unknown) meperidine [Fr om Demerol] Adverse Reaction (Intermediate, Verified 07/17/22 (units unknown) (unknown) (unknown) (no date) (unknown) (unknown) occurred due t o the inherent limitations of voice recognition software. Please (units unknown) (unknown) (unknown) (no date) (unknown) (unknown) piroxicam [Fro m Feldene] Allergy (Intermediate, Verified 07/17/22 09:41) (units unknown) (unknown) (unknown) (no date) (unknown) (unknown) potassium chlo ride 10 mEq tablet,extended release (Klor-Con) 10 meq PO DAILY (units unknown) (unknown) (unknown) (no date) (unknown) (unknown) read the note carefully and recognize, using context, where these substitutions (units unknown) (unknown) (unknown) (no date) (unknown) (unknown) software. Alth ough every effort is made to edit content, winderman errors (units unknown) (unknown) (unknown) (no date) (unknown) (unknown) tamsulosin 0.4 mg capsule (Flomax) 0.4 mg PO DAILY 07/17/22 [History Confirmed (units unknown) (unknown) (unknown) (no date) (unknown) (unknown) terbinafine HC l 250 mg tablet 250 mg PO DAILY 07/17/22 [History Confirmed (units unknown) (unknown) (unknown) (no date) (unknown) (unknown) tiotropium bro mide 18 mcg capsule with inhalation device 1 cap inhalation DAILY (units unknown) (unknown) Result panel 4 (unknown) (no date) (unknown) (unknown) (no value) (units unknown) (unknown) (unknown) (no date) (unknown) (unknown) 07/17/22 10:53 (unit s unknown) (unknown) (unknown) (no date) (unknown) (unknown) 07/17/22 [Hist ory Confirmed 07/17/22] (units unknown) (unknown) (unknown) (no date) (unknown) (unknown) 07/17/22 (units unknown) (unknown) (unknown) (no date) (unknown) (unknown) 07/17/22] (units unknown) (unknown) (unknown) (no date) (unknown) (unknown) 09:41) (units unknown) (unknown) (unknown) (no date) (unknown) (unknown) 100mg yet (units unknown) (unknown) (unknown) (no date) (unknown) (unknown) 10:53 (units unknown) (unknown) (unknown) (no date) (unknown) (unknown) 11:05 (units unknown) (unknown) (unknown) (no date) (unknown) (unknown) 3 (units unknown) (unknown) (unknown) (no date) (unknown) (unknown) [id number] (units unknown) (unknown) (unknown) (no date) (unknown) (unknown) 53 (units unknown) (unknown) (unknown) (no date) (unknown) (unknown) Age/Sex: 81 / F Date of Service: (units unknown) (unknown) (unknown) (no date) (unknown) (unknown) Allergies (units unknown) (unknown) (unknown) (no date) (unknown) (unknown) [place], EDWARD [id number] (units unknown) (unknown) (unknown) (no date) (unknown) (unknown) Assessment + Plan (u nits unknown) (unknown) (unknown) (no date) (unknown) (unknown) Attending Dr: Waqas Samuel MD (units unknown) (unknown) (unknown) (no date) (unknown) (unknown) BMI 16.9 (units unknown) (unknown) (unknown) (no date) (unknown) (unknown) BP 123/68 (units unknown) (unknown) (unknown) (no date) (unknown) (unknown) Blood Pressure Location Lt brachial (units unknown) (unknown) (unknown) (no date) (unknown) (unknown) : 0 Acct:[id number] (units unknown) (unknown) (unknown) (no date) (unknown) (unknown) Dept at . (units unknown) (unknown) (unknown) (no date) (unknown) (unknown) Documented By: Waqas Samuel MD 07/17/22 1052 (units unknown) (unknown) (unknown) (no date) (unknown) (unknown) Draft (units unknown) (unknown) (unknown) (no date) (unknown) (unknown) Finished cefdi gillian 30mg last night and has not started new abx Nitrofurantoin MCR (units unknown) (unknown) (unknown) (no date) (unknown) (unknown) Height 5 ft 6 in (un its unknown) (unknown) (unknown) (no date) (unknown) (unknown) Intake Note: (units unknown) (unknown) (unknown) (no date) (unknown) (unknown) Intake perform ed by: Lara Arvizu (units unknown) (unknown) (unknown) (no date) (unknown) (unknown) Intake (units unknown) (unknown) (unknown) (no date) (unknown) (unknown) Intake- Clinci al Staff (units unknown) (unknown) (unknown) (no date) (unknown) (unknown) [facility] (unit s unknown) (unknown) (unknown) (no date) (unknown) (unknown) KUB xr done th is AM at - imaging in PAX system (units unknown) (unknown) (unknown) (no date) (unknown) (unknown) Loc: URO (units unknown) (unknown) (unknown) (no date) (unknown) (unknown) Medications (units unknown) (unknown) (unknown) (no date) (unknown) (unknown) Orders (units unknown) (unknown) (unknown) (no date) (unknown) (unknown) Orders: (units unknown) (unknown) (unknown) (no date) (unknown) (unknown) Oxygen Deliver y Method nasal canula (units unknown) (unknown) (unknown) (no date) (unknown) (unknown) Oxygen Flow Rate 5 ( units unknown) (unknown) (unknown) (no date) (unknown) (unknown) POC Urine Dip Today N20.0 - Calculus of kidney (units unknown) (unknown) (unknown) (no date) (unknown) (unknown) Patient: Tiffany Bethea MR#: [id number] (units unknown) (unknown) (unknown) (no date) (unknown) (unknown) Penicillins [place] yates (Intermediate, Verified 07/17/22 09:41) (units unknown) (unknown) (unknown) (no date) (unknown) (unknown) Position Sitting (un its unknown) (unknown) (unknown) (no date) (unknown) (unknown) Pt here by ref erral for nephrolithiasis (units unknown) (unknown) (unknown) (no date) (unknown) (unknown) Pt reports hx of kidney stones and flank pain (units unknown) (unknown) (unknown) (no date) (unknown) (unknown) Pulse 105 H (units unknown) (unknown) (unknown) (no date) (unknown) (unknown) Pulse Oximetry (%) 9 1 (units unknown) (unknown) (unknown) (no date) (unknown) (unknown) Pulse Source Monitor (units unknown) (unknown) (unknown) (no date) (unknown) (unknown) Reason For Visit (un its unknown) (unknown) (unknown) (no date) (unknown) (unknown) Results (units unknown) (unknown) (unknown) (no date) (unknown) (unknown) Signed By: (units unknown) (unknown) (unknown) (no date) (unknown) (unknown) This note may have been all or partially generated using voice recognition (units unknown) (unknown) (unknown) (no date) (unknown) (unknown) Urine Appearan ce Cloudy Last Edit by Lara Arvizu LPN on 07/17/22 10:5 (units unknown) (unknown) (unknown) (no date) (unknown) (unknown) Urine Bilirubi n Negative Last Edit by Lara Arvizu LPN on 07/17/22 10: (units unknown) (unknown) (unknown) (no date) (unknown) (unknown) Urine Blood Ne gative Last Edit by Lara Arvizu LPN on 07/17/22 10:53 (units unknown) (unknown) (unknown) (no date) (unknown) (unknown) Urine Color Ye llow Last Edit by Lara Arvizu LPN on 07/17/22 10:53 (units unknown) (unknown) (unknown) (no date) (unknown) (unknown) Urine Dipstick (unit s unknown) (unknown) (unknown) (no date) (unknown) (unknown) Urine Glucose Negative mg/dL Last Edit by Lara Arvizu LPN on 07/17/22 (units unknown) (unknown) (unknown) (no date) (unknown) (unknown) Urine Ketones Negative Last Edit by Lara Arvizu LPN on 07/17/22 10:53 (units unknown) (unknown) (unknown) (no date) (unknown) (unknown) Urine Leukocyt e Esterase 1+ 70 Danni/uL Last Edit by Lara Arvizu LPN on (units unknown) (unknown) (unknown) (no date) (unknown) (unknown) Urine Nitrate Negative Last Edit by Lara Arvizu LPN on 07/17/22 10:53 (units unknown) (unknown) (unknown) (no date) (unknown) (unknown) Urine Protein Negative Last Edit by Lara Arvizu LPN on 07/17/22 10:53 (units unknown) (unknown) (unknown) (no date) (unknown) (unknown) Urine Specific [place] 1.015 Last Edit by Lara Arvizu LPN on 07/17/22 (units unknown) (unknown) (unknown) (no date) (unknown) (unknown) Urine Urobilin ogen - 0.2 mg/dL Last Edit by Lara Arvizu LPN on (units unknown) (unknown) (unknown) (no date) (unknown) (unknown) Urine pH 6.0 L ast Edit by Lara Arvizu LPN on 07/17/22 10:53 (units unknown) (unknown) (unknown) (no date) (unknown) (unknown) Urology Office Visit (units unknown) (unknown) (unknown) (no date) (unknown) (unknown) 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, 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 (units unknown) (unknown) (unknown) (no date) (unknown) (unknown) Vitals (units unknown) (unknown) (unknown) (no date) (unknown) (unknown) Weight 105 lb (units unknown) (unknown) (unknown) (no date) (unknown) (unknown) [History Confi rmed 07/17/22] (units unknown) (unknown) (unknown) (no date) (unknown) (unknown) acetaminophen 325 mg tablet 650 mg PO Q6H PRN 07/17/22 [History Confirmed (units unknown) (unknown) (unknown) (no date) (unknown) (unknown) aspirin 81 mg tablet,delayed release (Adult Aspirin Regimen) 81 mg PO DAILY (units unknown) (unknown) (unknown) (no date) (unknown) (unknown) cefdinir 300 m g capsule 300 mg PO BID 07/17/22 [History Confirmed 07/17/22] (units unknown) (unknown) (unknown) (no date) (unknown) (unknown) diltiazem HCl 240 mg capsule,24 hr,extended release 240 mg PO DAILY 07/17/22 (units unknown) (unknown) (unknown) (no date) (unknown) (unknown) fluconazole 15 0 mg tablet 150 mg PO ONCE 07/17/22 [History Confirmed 07/17/22] (units unknown) (unknown) (unknown) (no date) (unknown) (unknown) furosemide 40 mg tablet (Lasix) 40 mg PO DAILY 07/17/22 [History Confirmed (units unknown) (unknown) (unknown) (no date) (unknown) (unknown) have occurred. If there are any questions, please contact the Medical Records (units unknown) (unknown) (unknown) (no date) (unknown) (unknown) losartan 50 mg tablet (Cozaar) 50 mg PO BID 07/17/22 [History Confirmed (units unknown) (unknown) (unknown) (no date) (unknown) (unknown) may occur. Occ asional wrong-word or 'sound-alike' substitutions may have (units unknown) (unknown) (unknown) (no date) (unknown) (unknown) meperidine [Fr om Demerol] Adverse Reaction (Intermediate, Verified 07/17/22 (units unknown) (unknown) (unknown) (no date) (unknown) (unknown) occurred due t o the inherent limitations of voice recognition software. Please (units unknown) (unknown) (unknown) (no date) (unknown) (unknown) piroxicam [Fro m Feldene] Allergy (Intermediate, Verified 07/17/22 09:41) (units unknown) (unknown) (unknown) (no date) (unknown) (unknown) potassium chlo ride 10 mEq tablet,extended release (Klor-Con) 10 meq PO DAILY (units unknown) (unknown) (unknown) (no date) (unknown) (unknown) read the note carefully and recognize, using context, where these substitutions (units unknown) (unknown) (unknown) (no date) (unknown) (unknown) software. Alth ough every effort is made to edit content, winderman errors (units unknown) (unknown) (unknown) (no date) (unknown) (unknown) tamsulosin 0.4 mg capsule (Flomax) 0.4 mg PO DAILY 07/17/22 [History Confirmed (units unknown) (unknown) (unknown) (no date) (unknown) (unknown) terbinafine HC l 250 mg tablet 250 mg PO DAILY 07/17/22 [History Confirmed (units unknown) (unknown) (unknown) (no date) (unknown) (unknown) tiotropium bro mide 18 mcg capsule with inhalation device 1 cap inhalation DAILY (units unknown) (unknown) Result panel 5 (unknown) (no date) (unknown) (unknown) (no value) (units unknown) (unknown) (unknown) (no date) (unknown) (unknown) 07/17/22 10:53 (unit s unknown) (unknown) (unknown) (no date) (unknown) (unknown) 07/17/22 [Hist ory Confirmed 07/17/22] (units unknown) (unknown) (unknown) (no date) (unknown) (unknown) 07/17/22 (units unknown) (unknown) (unknown) (no date) (unknown) (unknown) 07/17/22] (units unknown) (unknown) (unknown) (no date) (unknown) (unknown) 09:41) (units unknown) (unknown) (unknown) (no date) (unknown) (unknown) 100mg yet (units unknown) (unknown) (unknown) (no date) (unknown) (unknown) 10:53 (units unknown) (unknown) (unknown) (no date) (unknown) (unknown) 11:05 (units unknown) (unknown) (unknown) (no date) (unknown) (unknown) 3 (units unknown) (unknown) (unknown) (no date) (unknown) (unknown) [id number] (units unknown) (unknown) (unknown) (no date) (unknown) (unknown) 53 (units unknown) (unknown) (unknown) (no date) (unknown) (unknown) Age/Sex: 81 / F Date of Service: (units unknown) (unknown) (unknown) (no date) (unknown) (unknown) Allergies (units unknown) (unknown) (unknown) (no date) (unknown) (unknown) [place] [address] (units unknown) (unknown) (unknown) (no date) (unknown) (unknown) Assessment + Plan (u nits unknown) (unknown) (unknown) (no date) (unknown) (unknown) Attending Dr: Waqas Samuel MD (units unknown) (unknown) (unknown) (no date) (unknown) (unknown) BMI 16.9 (units unknown) (unknown) (unknown) (no date) (unknown) (unknown) BP 123/68 (units unknown) (unknown) (unknown) (no date) (unknown) (unknown) Blood Pressure Location Lt brachial (units unknown) (unknown) (unknown) (no date) (unknown) (unknown) : 0 Acct:[id number] (units unknown) (unknown) (unknown) (no date) (unknown) (unknown) Dept at . (units unknown) (unknown) (unknown) (no date) (unknown) (unknown) Documented By: Waqas Samuel MD 07/17/22 1052 (units unknown) (unknown) (unknown) (no date) (unknown) (unknown) Draft (units unknown) (unknown) (unknown) (no date) (unknown) (unknown) Finished cefdi gillian 30mg last night and has not started new abx Nitrofurantoin MCR (units unknown) (unknown) (unknown) (no date) (unknown) (unknown) Height 5 ft 6 in (un its unknown) (unknown) (unknown) (no date) (unknown) (unknown) Intake Note: (units unknown) (unknown) (unknown) (no date) (unknown) (unknown) Intake perform ed by: Lara Arvizu (units unknown) (unknown) (unknown) (no date) (unknown) (unknown) Intake (units unknown) (unknown) (unknown) (no date) (unknown) (unknown) Intake- [place] [facility] (units unknown) (unknown) (unknown) (no date) (unknown) (unknown) [facility] (unit s unknown) (unknown) (unknown) (no date) (unknown) (unknown) KUB xr done th is AM at - imaging in PAX system (units unknown) (unknown) (unknown) (no date) (unknown) (unknown) Loc: [facility] (units unknown) (unknown) (unknown) (no date) (unknown) (unknown) Medications (units unknown) (unknown) (unknown) (no date) (unknown) (unknown) Orders (units unknown) (unknown) (unknown) (no date) (unknown) (unknown) Orders: (units unknown) (unknown) (unknown) (no date) (unknown) (unknown) Oxygen Deliver y Method nasal canula (units unknown) (unknown) (unknown) (no date) (unknown) (unknown) Oxygen Flow Rate 5 ( units unknown) (unknown) (unknown) (no date) (unknown) (unknown) POC Urine Dip Today N20.0 - Calculus of kidney (units unknown) (unknown) (unknown) (no date) (unknown) (unknown) Patient: Tiffany Bethea MR#: [id number] (units unknown) (unknown) (unknown) (no date) (unknown) (unknown) Penicillins [place] mil[place] (Intermediate, Verified 07/17/22 09:41) (units unknown) (unknown) (unknown) (no date) (unknown) (unknown) Position Sitting (un its unknown) (unknown) (unknown) (no date) (unknown) (unknown) Pt here by ref erral for nephrolithiasis (units unknown) (unknown) (unknown) (no date) (unknown) (unknown) Pt reports hx of kidney stones and flank pain (units unknown) (unknown) (unknown) (no date) (unknown) (unknown) Pulse 105 H (units unknown) (unknown) (unknown) (no date) (unknown) (unknown) Pulse Oximetry (%) 9 1 (units unknown) (unknown) (unknown) (no date) (unknown) (unknown) Pulse Source Monitor (units unknown) (unknown) (unknown) (no date) (unknown) (unknown) Reason For Visit (un its unknown) (unknown) (unknown) (no date) (unknown) (unknown) Results (units unknown) (unknown) (unknown) (no date) (unknown) (unknown) Signed By: (units unknown) (unknown) (unknown) (no date) (unknown) (unknown) This note may have been all or partially generated using voice recognition (units unknown) (unknown) (unknown) (no date) (unknown) (unknown) Urine Appearan ce Cloudy Last Edit by Lara Arvizu LPN on 07/17/22 10:5 (units unknown) (unknown) (unknown) (no date) (unknown) (unknown) Urine Bilirubi n Negative Last Edit by Lara Arvizu LPN on 07/17/22 10: (units unknown) (unknown) (unknown) (no date) (unknown) (unknown) Urine Blood Ne gative Last Edit by Lara Arvizu LPN on 07/17/22 10:53 (units unknown) (unknown) (unknown) (no date) (unknown) (unknown) Urine Color Ye llow Last Edit by Lara Arvizu LPN on 07/17/22 10:53 (units unknown) (unknown) (unknown) (no date) (unknown) (unknown) Urine Dipstick (unit s unknown) (unknown) (unknown) (no date) (unknown) (unknown) Urine Glucose Negative mg/dL Last Edit by Lara Arvizu LPN on 07/17/22 (units unknown) (unknown) (unknown) (no date) (unknown) (unknown) Urine Ketones Negative Last Edit by Lara Arvizu LPN on 07/17/22 10:53 (units unknown) (unknown) (unknown) (no date) (unknown) (unknown) Urine Leukocyt e Esterase 1+ 70 Danni/uL Last Edit by Lara Arvizu LPN on (units unknown) (unknown) (unknown) (no date) (unknown) (unknown) Urine Nitrate Negative Last Edit by Lara Arvizu LPN on 07/17/22 10:53 (units unknown) (unknown) (unknown) (no date) (unknown) (unknown) Urine Protein Negative Last Edit by Lara Arvizu LPN on 07/17/22 10:53 (units unknown) (unknown) (unknown) (no date) (unknown) (unknown) Urine Specific [place] 1.015 Last Edit by Lara Arvizu LPN on 07/17/22 (units unknown) (unknown) (unknown) (no date) (unknown) (unknown) Urine Urobilin ogen - 0.2 mg/dL Last Edit by Lara Arvizu LPN on (units unknown) (unknown) (unknown) (no date) (unknown) (unknown) Urine pH 6.0 L ast Edit by Lara Arvizu LPN on 07/17/22 10:53 (units unknown) (unknown) (unknown) (no date) (unknown) (unknown) Urology Office Visit (units unknown) (unknown) (unknown) (no date) (unknown) (unknown) 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, 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 (units unknown) (unknown) (unknown) (no date) (unknown) (unknown) Vitals (units unknown) (unknown) (unknown) (no date) (unknown) (unknown) Weight 105 lb (units unknown) (unknown) (unknown) (no date) (unknown) (unknown) [History Confi rmed 07/17/22] (units unknown) (unknown) (unknown) (no date) (unknown) (unknown) acetaminophen 325 mg tablet 650 mg PO Q6H PRN 07/17/22 [History Confirmed (units unknown) (unknown) (unknown) (no date) (unknown) (unknown) aspirin 81 mg tablet,delayed release (Adult Aspirin Regimen) 81 mg PO DAILY (units unknown) (unknown) (unknown) (no date) (unknown) (unknown) cefdinir 300 m g capsule 300 mg PO BID 07/17/22 [History Confirmed 07/17/22] (units unknown) (unknown) (unknown) (no date) (unknown) (unknown) diltiazem HCl 240 mg capsule,24 hr,extended release 240 mg PO DAILY 07/17/22 (units unknown) (unknown) (unknown) (no date) (unknown) (unknown) fluconazole 15 0 mg tablet 150 mg PO ONCE 07/17/22 [History Confirmed 07/17/22] (units unknown) (unknown) (unknown) (no date) (unknown) (unknown) furosemide 40 mg tablet (Lasix) 40 mg PO DAILY 07/17/22 [History Confirmed (units unknown) (unknown) (unknown) (no date) (unknown) (unknown) have occurred. If there are any questions, please contact the Medical Records (units unknown) (unknown) (unknown) (no date) (unknown) (unknown) losartan 50 mg tablet (Cozaar) 50 mg PO BID 07/17/22 [History Confirmed (units unknown) (unknown) (unknown) (no date) (unknown) (unknown) may occur. Occ asional wrong-word or 'sound-alike' substitutions may have (units unknown) (unknown) (unknown) (no date) (unknown) (unknown) meperidine [Fr om Demerol] Adverse Reaction (Intermediate, Verified 07/17/22 (units unknown) (unknown) (unknown) (no date) (unknown) (unknown) occurred due t o the inherent limitations of voice recognition software. Please (units unknown) (unknown) (unknown) (no date) (unknown) (unknown) piroxicam [Fro m Feldene] Allergy (Intermediate, Verified 07/17/22 09:41) (units unknown) (unknown) (unknown) (no date) (unknown) (unknown) potassium chlo ride 10 mEq tablet,extended release (Klor-Con) 10 meq PO DAILY (units unknown) (unknown) (unknown) (no date) (unknown) (unknown) read the note carefully and recognize, using context, where these substitutions (units unknown) (unknown) (unknown) (no date) (unknown) (unknown) software. Alth ough every effort is made to edit content, winderman errors (units unknown) (unknown) (unknown) (no date) (unknown) (unknown) tamsulosin 0.4 mg capsule (Flomax) 0.4 mg PO DAILY 07/17/22 [History Confirmed (units unknown) (unknown) (unknown) (no date) (unknown) (unknown) terbinafine HC l 250 mg tablet 250 mg PO DAILY 07/17/22 [History Confirmed (units unknown) (unknown) (unknown) (no date) (unknown) (unknown) tiotropium bro mide 18 mcg capsule with inhalation device 1 cap inhalation DAILY (units unknown) (unknown) Result panel 6 (unknown) (no date) (unknown) (unknown) (no value) (units unknown) (unknown) (unknown) (no date) (unknown) (unknown) (1) Left urete ral calculus: (units unknown) (unknown) (unknown) (no date) (unknown) (unknown) (2) UTI (urina ry tract infection): (units unknown) (unknown) (unknown) (no date) (unknown) (unknown) (3) Nephrolithiasis: (units unknown) (unknown) (unknown) (no date) (unknown) (unknown) 07/17/22 10:53 (unit s unknown) (unknown) (unknown) (no date) (unknown) (unknown) 07/17/22 [Hist ory Confirmed 07/17/22] (units unknown) (unknown) (unknown) (no date) (unknown) (unknown) 07/17/22 (units unknown) (unknown) (unknown) (no date) (unknown) (unknown) 07/17/22] (units unknown) (unknown) (unknown) (no date) (unknown) (unknown) 09:41) (units unknown) (unknown) (unknown) (no date) (unknown) (unknown) 100mg yet (units unknown) (unknown) (unknown) (no date) (unknown) (unknown) 10:53 (units unknown) (unknown) (unknown) (no date) (unknown) (unknown) 11:05 (units unknown) (unknown) (unknown) (no date) (unknown) (unknown) 3 (units unknown) (unknown) (unknown) (no date) (unknown) (unknown) [id number] (units unknown) (unknown) (unknown) (no date) (unknown) (unknown) 53 (units unknown) (unknown) (unknown) (no date) (unknown) (unknown) Additional pun ctate, nonobstructing calculi for reported as seen in the right (units unknown) (unknown) (unknown) (no date) (unknown) (unknown) Age/Sex: 81 / F Date of Service: (units unknown) (unknown) (unknown) (no date) (unknown) (unknown) All systems re viewed + are unremarkable except as noted in HPI and below (units unknown) (unknown) (unknown) (no date) (unknown) (unknown) Allergies (units unknown) (unknown) (unknown) (no date) (unknown) (unknown) [place] [address] (units unknown) (unknown) (unknown) (no date) (unknown) (unknown) Tiffany is an 81-year-old female presenting today with her supportive (units unknown) (unknown) (unknown) (no date) (unknown) (unknown) Assessment + Plan (u nits unknown) (unknown) (unknown) (no date) (unknown) (unknown) Attending Dr: Waqas Samuel MD (units unknown) (unknown) (unknown) (no date) (unknown) (unknown) BMI 16.9 (units unknown) (unknown) (unknown) (no date) (unknown) (unknown) BP 123/68 (units unknown) (unknown) (unknown) (no date) (unknown) (unknown) Blood Pressure Location Lt brachial (units unknown) (unknown) (unknown) (no date) (unknown) (unknown) Chief Complaint (uni ts unknown) (unknown) (unknown) (no date) (unknown) (unknown) Chief Complain t: Left ureteral calculus (units unknown) (unknown) (unknown) (no date) (unknown) (unknown) Code(s): (units unknown) (unknown) (unknown) (no date) (unknown) (unknown) Const (units unknown) (unknown) (unknown) (no date) (unknown) (unknown) : 0 Acct:[id number] (units unknown) (unknown) (unknown) (no date) (unknown) (unknown) Dept at . (units unknown) (unknown) (unknown) (no date) (unknown) (unknown) Details: (units unknown) (unknown) (unknown) (no date) (unknown) (unknown) Documented By: Waqas Samuel MD 07/17/22 1052 (units unknown) (unknown) (unknown) (no date) (unknown) (unknown) Draft (units unknown) (unknown) (unknown) (no date) (unknown) (unknown) E coli with se veral resistances and profile. Appropriate treat spent was (units unknown) (unknown) (unknown) (no date) (unknown) (unknown) Evaluation inc luded noncontrast CT 07/06/2022. The study demonstrated mild left (units unknown) (unknown) (unknown) (no date) (unknown) (unknown) Exam Narrative (unit s unknown) (unknown) (unknown) (no date) (unknown) (unknown) Exam Narrative: (uni ts unknown) (unknown) (unknown) (no date) (unknown) (unknown) Exam (units unknown) (unknown) (unknown) (no date) (unknown) (unknown) Finished cefdi gillian 30mg last night and has not started new abx Nitrofurantoin MCR (units unknown) (unknown) (unknown) (no date) (unknown) (unknown) HPI (units unknown) (unknown) (unknown) (no date) (unknown) (unknown) Head/neck-scle ra clear pupils are equal and round. Membranes are dry. (units unknown) (unknown) (unknown) (no date) (unknown) (unknown) Heart-normal r ate and rhythm. (units unknown) (unknown) (unknown) (no date) (unknown) (unknown) Height 5 ft 6 in (un its unknown) (unknown) (unknown) (no date) (unknown) (unknown) Hirsutism pres ent. Neck is without adenopathy or JVD. Chest no audible wheeze. (units unknown) (unknown) (unknown) (no date) (unknown) (unknown) Intake Note: (units unknown) (unknown) (unknown) (no date) (unknown) (unknown) Intake perform ed by: [place],Lara R (units unknown) (unknown) (unknown) (no date) (unknown) (unknown) Intake (units unknown) (unknown) (unknown) (no date) (unknown) (unknown) Intake- [place] [facility] (units unknown) (unknown) (unknown) (no date) (unknown) (unknown) [facility] (unit s unknown) (unknown) (unknown) (no date) (unknown) (unknown) KUB 07/17/2022 is reviewed. There is a prominent stool and gas pattern (units unknown) (unknown) (unknown) (no date) (unknown) (unknown) KUB xr done th is AM at - imaging in PAX system (units unknown) (unknown) (unknown) (no date) (unknown) (unknown) Left ureteral calculus (units unknown) (unknown) (unknown) (no date) (unknown) (unknown) Loc: [facility] (units unknown) (unknown) (unknown) (no date) (unknown) (unknown[facility] and acute onset left flank pain. (units unknown) (unknown) (unknown) (no date) (unknown) (unknown) Medical Histor y (Updated 07/17/22 @ 15:23 by Waqas Samuel MD) (units unknown) (unknown) (unknown) (no date) (unknown) (unknown) Medications (units unknown) (unknown) (unknown) (no date) (unknown) (unknown) N20.0 - Calcul us of kidney (units unknown) (unknown) (unknown) (no date) (unknown) (unknown) N20.1 - Calcul us of ureter (units unknown) (unknown) (unknown) (no date) (unknown) (unknown) N39.0 - Urinar y tract infection, site not specified (units unknown) (unknown) (unknown) (no date) (unknown) (unknown) Nephrolithiasis (uni ts unknown) (unknown) (unknown) (no date) (unknown) (unknown) Orders (units unknown) (unknown) (unknown) (no date) (unknown) (unknown) Orders: (units unknown) (unknown) (unknown) (no date) (unknown) (unknown) Oxygen Deliver y Method nasal canula (units unknown) (unknown) (unknown) (no date) (unknown) (unknown) Oxygen Flow Rate 5 ( units unknown) (unknown) (unknown) (no date) (unknown) (unknown) PFSH (units unknown) (unknown) (unknown) (no date) (unknown) (unknown) POC Urine Dip Today N20.0 - Calculus of kidney (units unknown) (unknown) (unknown) (no date) (unknown) (unknown) Patient: Tiffany Bethea MR#: [id number] (units unknown) (unknown) (unknown) (no date) (unknown) (unknown) Penicillins Al milan (Intermediate, Verified 07/17/22 09:41) (units unknown) (unknown) (unknown) (no date) (unknown) (unknown) Position Sitting (un its unknown) (unknown) (unknown) (no date) (unknown) (unknown) Pt here by ref erral for nephrolithiasis (units unknown) (unknown) (unknown) (no date) (unknown) (unknown) Pt reports hx of kidney stones and flank pain (units unknown) (unknown) (unknown) (no date) (unknown) (unknown) Pulse 105 H (units unknown) (unknown) (unknown) (no date) (unknown) (unknown) Pulse Oximetry (%) 9 1 (units unknown) (unknown) (unknown) (no date) (unknown) (unknown) Pulse Source Monitor (units unknown) (unknown) (unknown) (no date) (unknown) (unknown) ROS (units unknown) (unknown) (unknown) (no date) (unknown) (unknown) Reason For Visit (un its unknown) (unknown) (unknown) (no date) (unknown) (unknown) Results (units unknown) (unknown) (unknown) (no date) (unknown) (unknown) Right proximally 22. (units unknown) (unknown) (unknown) (no date) (unknown) (unknown) She denies fev er ongoing flank pain or chills. Urine culture of same date grew (units unknown) (unknown) (unknown) (no date) (unknown) (unknown) She is a thin, chronically ill appearing woman in a wheeled chair and in no (units unknown) (unknown) (unknown) (no date) (unknown) (unknown) Signed By: (units unknown) (unknown) (unknown) (no date) (unknown) (unknown) Status: Acute (units unknown) (unknown) (unknown) (no date) (unknown) (unknown) This note may have been all or partially generated using voice recognition (units unknown) (unknown) (unknown) (no date) (unknown) (unknown) UTI (urinary t ract infection) (units unknown) (unknown) (unknown) (no date) (unknown) (unknown) Urinalysis tod ay demonstrates 1+ leukocytes, otherwise clear (units unknown) (unknown) (unknown) (no date) (unknown) (unknown) Urine Appearan ce Cloudy Last Edit by Lara Arvizu LPN on 07/17/22 10:5 (units unknown) (unknown) (unknown) (no date) (unknown) (unknown) Urine Bilirubi n Negative Last Edit by Lara Arvizu LPN on 07/17/22 10: (units unknown) (unknown) (unknown) (no date) (unknown) (unknown) Urine Blood Ne gative Last Edit by Lara Arvizu LPN on 07/17/22 10:53 (units unknown) (unknown) (unknown) (no date) (unknown) (unknown) Urine Color Ye llow Last Edit by Lara Arvizu LPN on 07/17/22 10:53 (units unknown) (unknown) (unknown) (no date) (unknown) (unknown) Urine Dipstick (unit s unknown) (unknown) (unknown) (no date) (unknown) (unknown) Urine Glucose Negative mg/dL Last Edit by Lara Arvizu LPN on 07/17/22 (units unknown) (unknown) (unknown) (no date) (unknown) (unknown) Urine Ketones Negative Last Edit by Lara Arvizu LPN on 07/17/22 10:53 (units unknown) (unknown) (unknown) (no date) (unknown) (unknown) Urine Leukocyt e Esterase 1+ 70 Danni/uL Last Edit by Lara Arvizu LPN on (units unknown) (unknown) (unknown) (no date) (unknown) (unknown) Urine Nitrate Negative Last Edit by Lara Arvizu LPN on 07/17/22 10:53 (units unknown) (unknown) (unknown) (no date) (unknown) (unknown) Urine Protein Negative Last Edit by Lara Arvizu LPN on 07/17/22 10:53 (units unknown) (unknown) (unknown) (no date) (unknown) (unknown) Urine Specific [place] 1.015 Last Edit by Lara Arvizu LPN on 07/17/22 (units unknown) (unknown) (unknown) (no date) (unknown) (unknown) Urine Urobilin ogen - 0.2 mg/dL Last Edit by Lara Arvizu LPN on (units unknown) (unknown) (unknown) (no date) (unknown) (unknown) Urine pH 6.0 L ast Edit by Lara Arvizu LPN on 07/17/22 10:53 (units unknown) (unknown) (unknown) (no date) (unknown) (unknown) Urology Office Visit (units unknown) (unknown) (unknown) (no date) (unknown) (unknown) 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 (units unknown) (unknown) (unknown) (no date) (unknown) (unknown) aspirin 81 mg tablet,delayed release (Adult Aspirin Regimen) 81 mg PO DAILY (units unknown) (unknown) (unknown) (no date) (unknown) (unknown) cefdinir 300 m g capsule 300 mg PO BID 07/17/22 [History Confirmed 07/17/22] (units unknown) (unknown) (unknown) (no date) (unknown) (unknown) collecting sys tem. Despite request from [facility] images have not yet been (units unknown) (unknown) (unknown) (no date) (unknown) (unknown) coordinated wi th her PCP to continue without interruption to nitrofurantoin 100 (units unknown) (unknown) (unknown) (no date) (unknown) (unknown) diltiazem HCl 240 mg capsule,24 hr,extended release 240 mg PO DAILY 07/17/22 (units unknown) (unknown) (unknown) (no date) (unknown) (unknown) fluconazole 15 0 mg tablet 150 mg PO ONCE 07/17/22 [History Confirmed 07/17/22] (units unknown) (unknown) (unknown) (no date) (unknown) (unknown) friend, Keyshawn, for opinion regarding recent presentation to [facility] (units unknown) (unknown) (unknown) (no date) (unknown) (unknown) furosemide 40 mg tablet (Lasix) 40 mg PO DAILY 07/17/22 [History Confirmed (units unknown) (unknown) (unknown) (no date) (unknown) (unknown) have occurred. If there are any questions, please contact the Medical Records (units unknown) (unknown) (unknown) (no date) (unknown) (unknown) hydro nephrosi s, and a 6 x 4 mm left ureterovesical junction calculus. (units unknown) (unknown) (unknown) (no date) (unknown) (unknown) initiated with cefdinir 300 mg b.i.d.. She is completing that and I had (units unknown) (unknown) (unknown) (no date) (unknown) (unknown) irregular radi opaque density in the vicinity of the left ureterovesical junction (units unknown) (unknown) (unknown) (no date) (unknown) (unknown) losartan 50 mg tablet (Cozaar) 50 mg PO BID 07/17/22 [History Confirmed (units unknown) (unknown) (unknown) (no date) (unknown) (unknown) may occur. Occ asional wrong-word or 'sound-alike' substitutions may have (units unknown) (unknown) (unknown) (no date) (unknown) (unknown) meperidine [Fr om Demerol] Adverse Reaction (Intermediate, Verified 07/17/22 (units unknown) (unknown) (unknown) (no date) (unknown) (unknown) mg p.o. at HS for 60 days. (units unknown) (unknown) (unknown) (no date) (unknown) (unknown) obscuring much visualization of the urinary tract. However, there is an (units unknown) (unknown) (unknown) (no date) (unknown) (unknown) occurred due t o the inherent limitations of voice recognition software. Please (units unknown) (unknown) (unknown) (no date) (unknown) (unknown) piroxicam [Fro m Feldene] Allergy (Intermediate, Verified 07/17/22 09:41) (units unknown) (unknown) (unknown) (no date) (unknown) (unknown) potassium chlo ride 10 mEq tablet,extended release (Klor-Con) 10 meq PO DAILY (units unknown) (unknown) (unknown) (no date) (unknown) (unknown) [facility]. (units unknown) (unknown) (unknown) (no date) (unknown) (unknown) read the note carefully and recognize, using context, where these substitutions (units unknown) (unknown) (unknown) (no date) (unknown) (unknown) reports that s he had no further pain following her evaluation in the ED. (units unknown) (unknown) (unknown) (no date) (unknown) (unknown) software. Alth ough every effort is made to edit content, winderman errors (units unknown) (unknown) (unknown) (no date) (unknown) (unknown) tamsulosin 0.4 mg capsule (Flomax) 0.4 mg PO DAILY 07/17/22 [History Confirmed (units unknown) (unknown) (unknown) (no date) (unknown) (unknown) terbinafine HC l 250 mg tablet 250 mg PO DAILY 07/17/22 [History Confirmed (units unknown) (unknown) (unknown) (no date) (unknown) (unknown) that likely represents the index calculus seen on CT recently. The patient (units unknown) (unknown) (unknown) (no date) (unknown) (unknown) tiotropium bro mide 18 mcg capsule with inhalation device 1 cap inhalation DAILY (units unknown) (unknown) Result panel 7 (unknown) (no date) (unknown) (unknown) (no value) (units unknown) (unknown) (unknown) (no date) (unknown) (unknown) (1) Left urete ral calculus: (units unknown) (unknown) (unknown) (no date) (unknown) (unknown) (2) UTI (urina ry tract infection): (units unknown) (unknown) (unknown) (no date) (unknown) (unknown) (3) Nephrolithiasis: (units unknown) (unknown) (unknown) (no date) (unknown) (unknown) 07/17/22 10:53 (unit s unknown) (unknown) (unknown) (no date) (unknown) (unknown) 07/17/22 1528 (units unknown) (unknown) (unknown) (no date) (unknown) (unknown) 07/17/22 [Hist ory Confirmed 07/17/22] (units unknown) (unknown) (unknown) (no date) (unknown) (unknown) 07/17/22 (units unknown) (unknown) (unknown) (no date) (unknown) (unknown) 07/17/22] (units unknown) (unknown) (unknown) (no date) (unknown) (unknown) 09:41) (units unknown) (unknown) (unknown) (no date) (unknown) (unknown) 1. Return to [facility] urology and proximally 2 weeks for clinical update and (units unknown) (unknown) (unknown) (no date) (unknown) (unknown) 100mg yet (units unknown) (unknown) (unknown) (no date) (unknown) (unknown) 10:53 (units unknown) (unknown) (unknown) (no date) (unknown) (unknown) 11:05 (units unknown) (unknown) (unknown) (no date) (unknown) (unknown) 2. Request CT images be pushed to [facility] PACS. (units unknown) (unknown) (unknown) (no date) (unknown) (unknown) 3 (units unknown) (unknown) (unknown) (no date) (unknown) (unknown) 3. A commode h at and strainer were provided with instructions and indicators for (units unknown) (unknown) (unknown) (no date) (unknown) (unknown) 4. Proceed wit h prescribed nitrofurantoin 100 mg p.o. at HS. (units unknown) (unknown) (unknown) (no date) (unknown) (unknown) [id number] (units unknown) (unknown) (unknown) (no date) (unknown) (unknown) 5. She likely will benefit from topical intravaginal estradiol cream versus (units unknown) (unknown) (unknown) (no date) (unknown) (unknown) 50% probabilit y of successful passage overall. She seems to have responded well (units unknown) (unknown) (unknown) (no date) (unknown) (unknown) 53 (units unknown) (unknown) (unknown) (no date) (unknown) (unknown) 6. Rx tamsulos in 0.4 mg at HS-continue as previously and currently prescribed. (units unknown) (unknown) (unknown) (no date) (unknown) (unknown) Additional pun ctate, nonobstructing calculi for reported as seen in the right (units unknown) (unknown) (unknown) (no date) (unknown) (unknown) Age/Sex: 81 / F Date of Service: (units unknown) (unknown) (unknown) (no date) (unknown) (unknown) All systems re viewed + are unremarkable except as noted in HPI and below (units unknown) (unknown) (unknown) (no date) (unknown) (unknown) Allergies (units unknown) (unknown) (unknown) (no date) (unknown) (unknown) [place] [id number] (units unknown) (unknown) (unknown) (no date) (unknown) (unknown) Tiffany is an 81-year-old female presenting today with her supportive (units unknown) (unknown) (unknown) (no date) (unknown) (unknown) Assessment + Plan (u nits unknown) (unknown) (unknown) (no date) (unknown) (unknown) Attending Dr: Waqas Samuel MD (units unknown) (unknown) (unknown) (no date) (unknown) (unknown) BMI 16.9 (units unknown) (unknown) (unknown) (no date) (unknown) (unknown) BP 123/68 (units unknown) (unknown) (unknown) (no date) (unknown) (unknown) Blood Pressure Location Lt brachial (units unknown) (unknown) (unknown) (no date) (unknown) (unknown) Chief Complaint (uni ts unknown) (unknown) (unknown) (no date) (unknown) (unknown) Chief Complain t: Left ureteral calculus (units unknown) (unknown) (unknown) (no date) (unknown) (unknown) Code(s): (units unknown) (unknown) (unknown) (no date) (unknown) (unknown) Const (units unknown) (unknown) (unknown) (no date) (unknown) (unknown) : 0 Acct:[id number] (units unknown) (unknown) (unknown) (no date) (unknown) (unknown) Dept at . (units unknown) (unknown) (unknown) (no date) (unknown) (unknown) Details: (units unknown) (unknown) (unknown) (no date) (unknown) (unknown) Documented By: Waqas Samuel MD 07/17/22 1052 (units unknown) (unknown) (unknown) (no date) (unknown) (unknown) E coli with se veral resistances and profile. Appropriate treat spent was (units unknown) (unknown) (unknown) (no date) (unknown) (unknown) Encounter documentation, Rx submission, and billing-10 minutes (units unknown) (unknown) (unknown) (no date) (unknown) (unknown) Evaluation inc luded noncontrast CT 07/06/2022. The study demonstrated mild left (units unknown) (unknown) (unknown) (no date) (unknown) (unknown) Exam Narrative (unit s unknown) (unknown) (unknown) (no date) (unknown) (unknown) Exam Narrative: (uni ts unknown) (unknown) (unknown) (no date) (unknown) (unknown) Exam (units unknown) (unknown) (unknown) (no date) (unknown) (unknown) Zjch-ab-xnhs encounter-40 minutes (units unknown) (unknown) (unknown) (no date) (unknown) (unknown) Finished cefdi gillian 30mg last night and has not started new abx Nitrofurantoin MCR (units unknown) (unknown) (unknown) (no date) (unknown) (unknown) HPI (units unknown) (unknown) (unknown) (no date) (unknown) (unknown) Head/neck-scle ra clear pupils are equal and round. Membranes are dry. (units unknown) (unknown) (unknown) (no date) (unknown) (unknown) Heart-normal r ate and rhythm. (units unknown) (unknown) (unknown) (no date) (unknown) (unknown) Height 5 ft 6 in (un its unknown) (unknown) (unknown) (no date) (unknown) (unknown) Hirsutism pres ent. Neck is without adenopathy or JVD. Chest no audible wheeze. (units unknown) (unknown) (unknown) (no date) (unknown) (unknown) Intake Note: (units unknown) (unknown) (unknown) (no date) (unknown) (unknown) Intake perform ed by: Lara Arvizu (units unknown) (unknown) (unknown) (no date) (unknown) (unknown) Intake (units unknown) (unknown) (unknown) (no date) (unknown) (unknown) Intake- [place] [facility] (units unknown) (unknown) (unknown) (no date) (unknown) (unknown) [facility] (unit s unknown) (unknown) (unknown) (no date) (unknown) (unknown) KUB 07/17/2022 is reviewed. There is a prominent stool and gas pattern (units unknown) (unknown) (unknown) (no date) (unknown) (unknown) KUB xr done th is AM at - imaging in PAX system (units unknown) (unknown) (unknown) (no date) (unknown) (unknown) Left ureteral calculus (units unknown) (unknown) (unknown) (no date) (unknown) (unknown) Loc: [facility] (units unknown) (unknown) (unknown) (no date) (unknown) (unknown) [facility] of severe and acute onset left flank pain. (units unknown) (unknown) (unknown) (no date) (unknown) (unknown) Medical Histor y (Updated 07/17/22 @ 15:24 by Waqas Samuel MD) (units unknown) (unknown) (unknown) (no date) (unknown) (unknown) Medications (units unknown) (unknown) (unknown) (no date) (unknown) (unknown) Medications: (units unknown) (unknown) (unknown) (no date) (unknown) (unknown) N20.0 - Calcul us of kidney (units unknown) (unknown) (unknown) (no date) (unknown) (unknown) N20.1 - Calcul us of ureter (units unknown) (unknown) (unknown) (no date) (unknown) (unknown) N39.0 - Urinar y tract infection, site not specified (units unknown) (unknown) (unknown) (no date) (unknown) (unknown) Nephrolithiasis (uni ts unknown) (unknown) (unknown) (no date) (unknown) (unknown) New (units unknown) (unknown) (unknown) (no date) (unknown) (unknown) Orders (units unknown) (unknown) (unknown) (no date) (unknown) (unknown) Orders: (units unknown) (unknown) (unknown) (no date) (unknown) (unknown) [place]-future. (uni ts unknown) (unknown) (unknown) (no date) (unknown) (unknown) Oxygen Deliver y Method nasal canula (units unknown) (unknown) (unknown) (no date) (unknown) (unknown) Oxygen Flow Rate 5 ( units unknown) (unknown) (unknown) (no date) (unknown) (unknown) PFSH (units unknown) (unknown) (unknown) (no date) (unknown) (unknown) POC Urine Dip Today N20.0 - Calculus of kidney (units unknown) (unknown) (unknown) (no date) (unknown) (unknown) Patient: Tiffany Bethea MR#: [id number] (units unknown) (unknown) (unknown) (no date) (unknown) (unknown) [place] yates (Intermediate, Verified 07/17/22 09:41) (units unknown) (unknown) (unknown) (no date) (unknown) (unknown) Plan (units unknown) (unknown) (unknown) (no date) (unknown) (unknown) Position Sitting (un its unknown) (unknown) (unknown) (no date) (unknown) (unknown) Pt here by ref erral for nephrolithiasis (units unknown) (unknown) (unknown) (no date) (unknown) (unknown) Pt reports hx of kidney stones and flank pain (units unknown) (unknown) (unknown) (no date) (unknown) (unknown) Pulse 105 H (units unknown) (unknown) (unknown) (no date) (unknown) (unknown) Pulse Oximetry (%) 9 1 (units unknown) (unknown) (unknown) (no date) (unknown) (unknown) Pulse Source Monitor (units unknown) (unknown) (unknown) (no date) (unknown) (unknown) Qualifiers: (units unknown) (unknown) (unknown) (no date) (unknown) (unknown) ROS (units unknown) (unknown) (unknown) (no date) (unknown) (unknown) Reason For Visit (un its unknown) (unknown) (unknown) (no date) (unknown) (unknown) Results (units unknown) (unknown) (unknown) (no date) (unknown) (unknown) Review of clin ica chart note history, patient data, 23 pages of clinical (units unknown) (unknown) (unknown) (no date) (unknown) (unknown) Reviewed findi ngs, discussed impression, and likelihood as spontaneous stone (units unknown) (unknown) (unknown) (no date) (unknown) (unknown) Right proximally 22. (units unknown) (unknown) (unknown) (no date) (unknown) (unknown) She denies fev er ongoing flank pain or chills. Urine culture of same date grew (units unknown) (unknown) (unknown) (no date) (unknown) (unknown) She is a thin, chronically ill appearing woman in a wheeled chair and in no (units unknown) (unknown) (unknown) (no date) (unknown) (unknown) Signed By: <Electronically signed by Waqas Samuel MD> (units unknown) (unknown) (unknown) (no date) (unknown) (unknown) Signed (units unknown) (unknown) (unknown) (no date) (unknown) (unknown) Status: Acute (units unknown) (unknown) (unknown) (no date) (unknown) (unknown) This note may have been all or partially generated using voice recognition (units unknown) (unknown) (unknown) (no date) (unknown) (unknown) UTI (urinary t ract infection) (units unknown) (unknown) (unknown) (no date) (unknown) (unknown) Urinalysis tod ay demonstrates 1+ leukocytes, otherwise clear (units unknown) (unknown) (unknown) (no date) (unknown) (unknown) Urinary tract infection type: site unspecified Hematuria presence: (units unknown) (unknown) (unknown) (no date) (unknown) (unknown) Urine Appearan ce Cloudy Last Edit by Lara Arvizu LPN on 07/17/22 10:5 (units unknown) (unknown) (unknown) (no date) (unknown) (unknown) Urine Bilirubi n Negative Last Edit by Lara Arvizu LPN on 07/17/22 10: (units unknown) (unknown) (unknown) (no date) (unknown) (unknown) Urine Blood Ne gative Last Edit by Lara Arvizu LPN on 07/17/22 10:53 (units unknown) (unknown) (unknown) (no date) (unknown) (unknown) Urine Color Ye llow Last Edit by Lara Arvizu LPN on 07/17/22 10:53 (units unknown) (unknown) (unknown) (no date) (unknown) (unknown) Urine Dipstick (unit s unknown) (unknown) (unknown) (no date) (unknown) (unknown) Urine Glucose Negative mg/dL Last Edit by Lara Arvizu LPN on 07/17/22 (units unknown) (unknown) (unknown) (no date) (unknown) (unknown) Urine Ketones Negative Last Edit by Lara Arvizu LPN on 07/17/22 10:53 (units unknown) (unknown) (unknown) (no date) (unknown) (unknown) Urine Leukocyt e Esterase 1+ 70 Danni/uL Last Edit by Lara Arvizu LPN on (units unknown) (unknown) (unknown) (no date) (unknown) (unknown) Urine Nitrate Negative Last Edit by Lara Arvizu LPN on 07/17/22 10:53 (units unknown) (unknown) (unknown) (no date) (unknown) (unknown) Urine Protein Negative Last Edit by Lara Arvizu LPN on 07/17/22 10:53 (units unknown) (unknown) (unknown) (no date) (unknown) (unknown) Urine Specific [place] 1.015 Last Edit by Lara Arvizu LPN on 07/17/22 (units unknown) (unknown) (unknown) (no date) (unknown) (unknown) Urine Urobilin ogen - 0.2 mg/dL Last Edit by Lara Arvizu LPN on (units unknown) (unknown) (unknown) (no date) (unknown) (unknown) Urine pH 6.0 L ast Edit by Lara Arvizu LPN on 07/17/22 10:53 (units unknown) (unknown) (unknown) (no date) (unknown) (unknown) Urology Office Visit (units unknown) (unknown) (unknown) (no date) (unknown) (unknown) 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, 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 (units unknown) (unknown) (unknown) (no date) (unknown) (unknown) Vitals (units unknown) (unknown) (unknown) (no date) (unknown) (unknown) We will need t o proceed with intervention for lack of progression of stone (units unknown) (unknown) (unknown) (no date) (unknown) (unknown) Weight 105 lb (units unknown) (unknown) (unknown) (no date) (unknown) (unknown) [History Confi rmed 07/17/22] (units unknown) (unknown) (unknown) (no date) (unknown) (unknown) acetaminophen 325 mg tablet 650 mg PO Q6H PRN 07/17/22 [History Confirmed (units unknown) (unknown) (unknown) (no date) (unknown) (unknown) acute distress but labored breathing on 5 L oxygen per nasal cannula! (units unknown) (unknown) (unknown) (no date) (unknown) (unknown) aspirin 81 mg tablet,delayed release (Adult Aspirin Regimen) 81 mg PO DAILY (units unknown) (unknown) (unknown) (no date) (unknown) (unknown) ay occur. Occa sional wrong-word or 'sound-alike' substitutions may have (units unknown) (unknown) (unknown) (no date) (unknown) (unknown) cefdinir 300 m g capsule 300 mg PO BID 07/17/22 [History Confirmed 07/17/22] (units unknown) (unknown) (unknown) (no date) (unknown) (unknown) collecting sys tem. Despite request from [facility] images have not yet been (units unknown) (unknown) (unknown) (no date) (unknown) (unknown) coordinated wi th her PCP to continue without interruption to nitrofurantoin 100 (units unknown) (unknown) (unknown) (no date) (unknown) (unknown) diltiazem HCl 240 mg capsule,24 hr,extended release 240 mg PO DAILY 07/17/22 (units unknown) (unknown) (unknown) (no date) (unknown) (unknown) fluconazole 15 0 mg tablet 150 mg PO ONCE 07/17/22 [History Confirmed 07/17/22] (units unknown) (unknown) (unknown) (no date) (unknown) (unknown) friend, Keyshawn, for opinion regarding recent presentation to [facility] (units unknown) (unknown) (unknown) (no date) (unknown) (unknown) furosemide 40 mg tablet (Lasix) 40 mg PO DAILY 07/17/22 [History Confirmed (units unknown) (unknown) (unknown) (no date) (unknown) (unknown) have occurred. If there are any questions, please contact the Medical Records (units unknown) (unknown) (unknown) (no date) (unknown) (unknown) hydro nephrosi s, and a 6 x 4 mm left ureterovesical junction calculus. (units unknown) (unknown) (unknown) (no date) (unknown) (unknown) initiated with cefdinir 300 mg b.i.d.. She is completing that and I had (units unknown) (unknown) (unknown) (no date) (unknown) (unknown) irregular radi opaque density in the vicinity of the left ureterovesical junction (units unknown) (unknown) (unknown) (no date) (unknown) (unknown) losartan 50 mg tablet (Cozaar) 50 mg PO BID 07/17/22 [History Confirmed (units unknown) (unknown) (unknown) (no date) (unknown) (unknown) meperidine [Fr om Demerol] Adverse Reaction (Intermediate, Verified 07/17/22 (units unknown) (unknown) (unknown) (no date) (unknown) (unknown) mg p.o. at HS for 60 days. (units unknown) (unknown) (unknown) (no date) (unknown) (unknown) obscuring much visualization of the urinary tract. However, there is an (units unknown) (unknown) (unknown) (no date) (unknown) (unknown) occurred due t o the inherent limitations of voice recognition software. Please (units unknown) (unknown) (unknown) (no date) (unknown) (unknown) outside histor y, laboratory, and imaging reports for encounter-15 minutes (units unknown) (unknown) (unknown) (no date) (unknown) (unknown) passage and or clinical deterioration related to recent history of E coli UTI. (units unknown) (unknown) (unknown) (no date) (unknown) (unknown) passage with M ET (medical expulsion therapy). Explained that she is at high (units unknown) (unknown) (unknown) (no date) (unknown) (unknown) piroxicam [Fro m Feldene] Allergy (Intermediate, Verified 07/17/22 09:41) (units unknown) (unknown) (unknown) (no date) (unknown) (unknown) potassium chlo ride 10 mEq tablet,extended release (Klor-Con) 10 meq PO DAILY (units unknown) (unknown) (unknown) (no date) (unknown) (unknown) pushed into [facility] PACS for review. (units unknown) (unknown) (unknown) (no date) (unknown) (unknown) read the note carefully and recognize, using context, where these substitutions (units unknown) (unknown) (unknown) (no date) (unknown) (unknown) repeat KUB. (units unknown) (unknown) (unknown) (no date) (unknown) (unknown) reports that s he had no further pain following her evaluation in the ED. (units unknown) (unknown) (unknown) (no date) (unknown) (unknown) risk for surgi judith and anesthetic intervention and current stone has at least a (units unknown) (unknown) (unknown) (no date) (unknown) (unknown) software. Alth ough every effort is made to edit content, winderman errors m (units unknown) (unknown) (unknown) (no date) (unknown) (unknown) specified (units unknown) (unknown) (unknown) (no date) (unknown) (unknown) tamsulosin 0.4 mg PO BEDTIME 90 caps 3RF (units unknown) (unknown) (unknown) (no date) (unknown) (unknown) tamsulosin 0.4 mg capsule (Flomax) 0.4 mg PO DAILY 07/17/22 [History Confirmed (units unknown) (unknown) (unknown) (no date) (unknown) (unknown) tamsulosin 0.4 mg capsule 0.4 mg PO BEDTIME #90 caps 07/17/22 [Rx Confirmed (units unknown) (unknown) (unknown) (no date) (unknown) (unknown) terbinafine HC l 250 mg tablet 250 mg PO DAILY 07/17/22 [History Confirmed (units unknown) (unknown) (unknown) (no date) (unknown) (unknown) that likely represents the index calculus seen on CT recently. The patient (units unknown) (unknown) (unknown) (no date) (unknown) (unknown) tiotropium bro mide 18 mcg capsule with inhalation device 1 cap inhalation DAILY (units unknown) (unknown) (unknown) (no date) (unknown) (unknown) to early antib iotic intervention in setting of mild hydro secondary to stone. (units unknown) (unknown) (unknown) (no date) (unknown) (unknown) which she shou ld contact [facility]. (units unknown) (unknown) (unknown) (no date) (unknown) (unknown) without hematu mohini Qualified Code(s): N39.0 - Urinary tract infection, site not (units unknown) (unknown) Social History date description facility 2022-07-17 00:[address] [facility] Vital Signs date measurement value units 2022-07-17 00:00 BMI 16.9 kg/m2 2022-07-17 00:00 BP_diastolic 68 mmHg 2022-07-17 00:00 BP_systolic 123 mmHg 2022-07-17 00:00 heart_rate 105 /min 2022-07-17 00:00 height_metric 167.64 cm 2022-07-17 00:00 height_standard 66 in 2022-07-17 00:00 o2_saturation 91 % 2022-07-17 00:00 weight_metric 47.62 kg 2022-07-17 00:00 weight_standard 104.98 lb
--- NOTE | 2022-08-13 16:14 | ED Physician Documentation ---
History of Present Illness - Stated complaint Stated Complaint: FEMALE - Chief complaint Chief Complaint: UTI - History obtained from History obtained from: Patient - Additonal information Additional information: 81-year-old woman with history of COPD, renal colic and recent hip fracture presents after a fall. She states that they have been wrapping up the carpet in her upstairs and she moved downstairs. She hit her head a few days ago and then slept for 2 days. When she woke up she had right-sided neck pain and fell out of bed. She denies any new injury. She was brought in by ambulance today for concern for UTI, but patient says she does not have concern for UTI. She denies fevers. She does feel fatigued. 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 : Kidney stones HEENT: None Psych: None Musculoskeletal: Chronic back pain Derm: None - Past Surgical History Past Surgical History: Yes - Present Medications Home Medications: Ambulatory Orders Medication Instructions Recorded Confirmed Tiotropium [Spiriva] 1 puffs INH DAILY 10/27/12 03/21/19 Acetaminophen [Tylenol] 650 mg PO DAILY 03/21/19 03/21/19 Albuterol Sulfate [Proventil Hfa 1 - 2 puffs INH Q4H PRN 03/21/19 03/21/19 Inhaler] Aspirin [Aspirin EC] 81 mg PO DAILY 03/21/19 03/21/19 Liane-C 1,000 mg PO DAILY 03/21/19 Fluticasone/Salmeterol [Advair 1 each IH BID 03/21/19 03/21/19 500-50 Diskus] Furosemide [Lasix] 40 mg PO DAILY 03/21/19 03/21/19 Losartan [Cozaar] 50 mg PO BID 03/21/19 03/21/19 Potassium Chloride [Klor-Con 10] 10 meq PO DAILY 03/21/19 03/21/19 dilTIAZem HCL [Diltiazem ER] 240 mg PO DAILY 03/21/19 03/21/19 terbinafine HCL [Terbinafine HCl] 250 mg PO DAILY 03/21/19 03/21/19 Acyclovir [Zovirax] 800 mg PO 5XD 7 Days #35 tablet 04/26/19 Azithromycin [Zithromax] 250 mg PO DAILY #4 tablet 06/13/19 Cefdinir 300 mg PO BID #20 capsule 06/13/19 Ondansetron Odt [Zofran Odt] 4 mg TL Q6H PRN #10 tablet 08/15/21 Tamsulosin HCl [Flomax] 0.4 mg PO DAILY #30 cap 08/15/21 oxyCODONE [Roxicodone] 5 mg PO TID PRN #20 tablet 08/15/21 predniSONE [Deltasone] 40 mg PO DAILY #10 tablet 03/06/22 Cefdinir 300 mg PO BID #20 cap 07/06/22 Fluconazole [Diflucan] 150 mg PO ONCE PRN #1 tablet 07/06/22 HYDROcod/ACETAM 5/325 [[place] 5/325] 1 - 2 tab PO Q6H PRN #15 tablet 07/06/22 Azithromycin [Zithromax] 250 mg PO DAILY #4 tablet 07/20/22 predniSONE [Deltasone] 40 mg PO DAILY 4 Days #8 tablet 07/20/22 - Allergies Allergies/Adverse Reactions: Allergies Allergy/AdvReac Type Severity Reaction Status Date / Time Penicillins Allergy Intermediate Hives, Verified 07/06/22 14:29 swelling aspirin Allergy Mild Rash Verified 07/06/22 14:29 piroxicam [From Feldene] Allergy Mild Rash Verified 07/06/22 14:29 meperidine [From Demerol] Allergy Unknown Verified 07/06/22 14:29 - Social History Does the pt smoke?: No Smoking Status: Never smoker Does the pt drink ETOH?: No Does the pt have substance abuse?: No - Immunizations Immunizations are current?: Yes - POLST Patient has POLST: No PD ED PE NORMAL - Vitals Vital signs reviewed: Yes - General General: Alert and oriented X 3, No acute distress - HEENT HEENT: PERRL, EOMI, Other (Left periorbital ecchymosis) - Neck Neck: Other (Diffuse mid and upper C-spine tenderness worse to the right of the C-spine.) - Cardiac Cardiac: RRR, No murmur - Respiratory Respiratory: No respiratory distress - Abdomen Abdomen: Non tender - Derm Derm: No rash - Neuro Neuro: Alert and oriented X 3, Normal speech Eye Opening: Spontaneous Motor: Obeys Commands Verbal: Oriented GCS Score: 15 Results - Vitals Vitals: Vital Signs - 24 hr 08/13/22 08/13/22 15:47 17:56 Temperature 37.2 C Heart Rate 84 79 Respiratory 20 15 Rate Blood Pressure 112/60 115/60 O2 Saturation 94 98 Oxygen O2 Source Room air - Labs Labs: Laboratory Tests 08/13/22 08/13/22 08/13/22 16:15 16:15 17:52 WBC 12.6 H RBC 4.23 Hgb 11.8 L Hct 40.9 MCV 96.7 MCH 27.9 MCHC 28.9 L RDW 12.6 Plt Count 322 MPV 9.7 Neut # (Auto) 10.4 H Lymph # (Auto) 0.9 L Chambers # (Auto) 1.0 Eos # (Auto) 0.1 Baso # (Auto) 0.1 Absolute Nucleated RBC 0.00 Nucleated RBC % 0.0 Manual Slide Review Indicated Platelet Estimate NORMAL (130-450,000) Platelet Morphology NORMAL APPEARANCE RBC Morph Micro Appear 1+ HYPOCHROMASIA Sodium 143 Potassium 4.4 Chloride 96 L Carbon Dioxide 37 H Anion Gap 10.0 BUN 26 H Creatinine 0.6 Estimated GFR (MDRD) 96 Glucose 121 H Calcium 8.6 Magnesium 2.1 Total Bilirubin 0.7 AST 17 ALT 17 Alkaline Phosphatase 87 Total Creatine Kinase 16 L Total Protein 6.6 L Albumin 2.7 L Globulin 3.9 Albumin/Globulin Ratio 0.7 L Urine Color YELLOW Urine Clarity CLEAR Urine pH 5.0 Ur Specific [place] 1.015 Urine Protein NEGATIVE Urine Glucose (UA) NEGATIVE Urine Ketones NEGATIVE Urine Occult Blood NEGATIVE Urine Nitrite NEGATIVE Urine Bilirubin NEGATIVE Urine Urobilinogen 0.2 (NORMAL) Ur Leukocyte Esterase NEGATIVE Ur Microscopic Review NOT INDICATED Urine Culture Comments NOT INDICATED - Rads (name of study) CT of the head and cervical spine showed no acute disease. There is age- appropriate degeneration and atrophy. Relevant Findings:: Final report received, EMP independent interpretation of test PD Medical Decision Making - ED course ED course: 81-year-old woman has been sleeping a lot lately and has been incontinent of stool and urine. She lives alone but with some help. On examination here she appears well but has a left periorbital ecchymosis from a fall a few days ago. Relevant imaging was negative for acute findings. Work-up here demonstrates mild leukocytosis. She has a contraction alkalosis and prerenal azotemia and a clean urine. She was administered IV fluids. On reexamination after that she says she has not been able to walk for a few days. When asked why this was, she said that she is too weak to do so. On more thorough neurologic exam it looks like she actually has quite a bit of left leg weakness. This is the leg she recently had a hip replacement on, but there is no pain with passive range of motion. Given this we will put her in the hospital for an MRI and stroke work-up. Telehealth consultation placed at 7:05 PM. Departure - Departure Disposition: ED Place in Observation Clinical Impression: Dehydration, Left leg weakness Head injury Qualifiers: Encounter type: initial encounter Qualified Code(s): S09.90XA - Unspecified injury of head, initial encounter Incontinence Qualifiers: Incontinence type: urinary Urinary Incontinence type: unspecified incontinence Qualified Code(s): R32 - Unspecified urinary incontinence Condition: Stable Instructions: ED Dehydration Comments: No serious findings were found today. No UTI. Talk with your family doctor in the next few days about the appropriateness of your current living situation. Return for new or worsening symptoms.
[2022-08-13 16:17] LABS: BASOPHILS # (AUTO) 0.1 10^3/uL (0.0-0.1); BASOPHILS % (AUTO) 0.4 %; EOSINOPHILS # (AUTO) 0.1 10^3/uL (0.0-0.7); EOSINOPHILS % (AUTO) 0.6 %; HCT - HEMATOCRIT 40.9 % (37.0-47.0); HGB - HEMOGLOBIN 11.8 g/dL (12.0-16.0); LYMPHOCYTES # (AUTO) 0.9 10^3/uL (1.5-3.5); LYMPHOCYTES % (AUTO) 7.5 %; MEAN CORPUSCULAR HEMOGLOBIN 27.9 pg (27.0-31.0); MEAN CORPUSCULAR HGB CONC 28.9 g/dL (32.0-36.0); MEAN CORPUSCULAR VOLUME 96.7 fL (81.0-99.0); MEAN PLATELET VOLUME 9.7 fL (7.9-10.8); MONOCYTES % (AUTO) 8.3 %; NEUTROPHILS # (AUTO) 10.4 10^3/uL (1.5-6.6); PLT - PLATELET COUNT 322 10^3/uL (130-450); RED BLOOD COUNT 4.23 10^6/uL (4.20-5.40); RED CELL DISTRIBUTION WIDTH 12.6 % (12.0-15.0); WHITE BLOOD COUNT 12.6 x10^3/uL (4.8-10.8)
[2022-08-13 16:20] LABS: SLIDE REVIEW? Indicated
[2022-08-13 16:29] LABS: ALBUMIN 2.7 g/dL (3.2-5.5); ALBUMIN/GLOBULIN RATIO 0.7 (1.0-2.2); BILIRUBIN,TOTAL 0.7 mg/dL (0.2-1.0); CALCIUM 8.6 mg/dL (8.5-10.3); CREATININE 0.6 mg/dL (0.4-1.0); MAGNESIUM 2.1 mg/dL (1.7-2.8); POTASSIUM 4.4 mmol/L (3.5-5.0); TOTAL PROTEIN 6.6 g/dL (6.7-8.2)
[2022-08-13 16:39] LABS: PLATELET ESTIMATE, MANUAL NORMAL (130-450,000) (NORMAL); PLATELET MORPHOLOGY NORMAL APPEARANCE (NORMAL); RBC MORPHOLOGY (MULTIPLE) 1+ HYPOCHROMASIA (NORMAL)
--- NOTE | 2022-08-13 17:32 | CT Report ---
PROCEDURE: HEAD WO INDICATIONS: head inj TECHNIQUE: Noncontrast 4.5 mm thick angled axial sections acquired from the foramen magnum to the vertex. For r adiation dose reduction, the following was used: automated exposure control, adjustment of mA and/or kV according to patient size. COMPARISON: 08/05/2018 FINDINGS: Image quality: Excellent. CSF spaces: Basal cisterns are patent. No extra-axial fluid collections. Ventricles are normal in size and shape. Brain: No midline shift. No intracranial masses or hemorrhage. Arreola-white matter interface is norm al. Age-appropriate cervical cortical volume loss. Patchy moderate hypodensity throughout subcortica l and periventricular white matter. There are prominent extra-axial fluid collections in the posterio r fossa consistent with arachnoid cysts, stable. Skull and face: Calvarium and visualized facial bones are intact, without suspicious lesions. Sinuses: Right maxillary sinus to the extent it is visible appears hypoplastic. The other visible sin uses are aerated. There is wax in both external auditory canals. IMPRESSION: 1. No CT evidence of acute intracranial process. 2. Age-appropriate volume loss and changes of chronic microvascular ischemia. Reviewed by: Jaida Easley MD on 08/13/2022 4:31 PM MARKIE Approved by: Jaida Easley MD on 08/13/2022 4:31 PM MARKIE Station ID: [id number]
--- NOTE | 2022-08-13 17:35 | CT Report ---
PROCEDURE: CERVICAL SPINE WO INDICATIONS: head inj TECHNIQUE: Noncontrast 3 mm thick sections acquired from the skull base to the T4 level. Sagittal and coronal r eformats were then constructed. For radiation dose reduction, the following was used: automated exp osure control, adjustment of mA and/or kV according to patient size. COMPARISON: None. FINDINGS: Image quality: Excellent. Bones: No fractures or dislocations. Severe disc height loss at C6-7 and moderately severe disc dege neration at C5-6. There are severe degenerative changes at the atlantodental interval. Visualized sup erior ribs are intact. Soft tissues: Prevertebral soft tissues are normal in thickness. No paravertebral hematomas. No ap ical pneumothoraces. IMPRESSION: 1. No CT evidence of acute cervical spine injury. 2. Focal degenerative changes at C1-2, C5-6 and C6-7 Reviewed by: Jaida Easley MD on 08/13/2022 4:34 PM MARKIE Approved by: Jaida Easley MD on 08/13/2022 4:34 PM MARKIE Station ID: [id number]
[2022-08-13 17:57] LABS: BILIRUBIN,URINE NEGATIVE (NEGATIVE); GLUCOSE, URINE (UA) NEGATIVE (NEGATIVE); KETONES,URINE (UA) NEGATIVE (NEGATIVE); LEUKOCYTE ESTERASE, URINE NEGATIVE (NEGATIVE); NITRITE,URINE NEGATIVE (NEGATIVE); OCCULT BLOOD,URINE NEGATIVE (NEGATIVE); PROTEIN,URINE NEGATIVE (NEGATIVE); UROBILINOGEN,URINE 0.2 (NORMAL) E.U./dL (NORMAL)
[2022-08-13 18:01] LABS: CLARITY,URINE CLEAR (CLEAR)
[2022-08-13] MEDS ORDERED: SODIUM CHLORIDE 0.9% 1,000 ML IV STA (18:08)
--- NOTE | 2022-08-13 19:25 | HISTORY & PHYSICAL EXAMINATION ---
Chief Complaint - Chief Complaint Chief Complaint: Fatigue History of Present Illness - Admitted From Admitted From:: ER - History Obtained From Records Reviewed: Yes History obtained from: Patient, Patient's daughter, ER staff, chart Exam Limitations: H&P was conducted via video remotely, using Access Cart. Patient is in [place]. - History of Present Illness HPI Comment/Other: Patient is in [place]. Physician is in [place]. Patient's daughter, Renate Avilez is at bedside. 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 Pt lives with her daughter and granddaughter, who are both busy, but help her out. On , pt went to bathroom, then leaned over for her O2 and reached to far and went off-balance and fell onto her L side, hitting her head on the cabinet. She was down for a few seconds before her daughter came and called for help and she and a friend were able to get pt up and helped her to a chair in the living room. Pt has stayed in the living room since then. She c/o L sided weakness, L sided pain and fatigue and has not left the living room since , sleeping on the couch or in the chair. Her new O2 cannister was initially upstairs, so she was using 5L NC O2 instead of 6L NC O2 for a couple of nights. Since the fall, pt has c/o weakness, fatigue and has not even walked to the bathroom, and she has been soiling herself and sitting in her soiled clothes. She has also been sleeping a lot. This is not like her. No CP, no change in SOB, no cough, no dysuria, no change in BM, no abdo pain. Pt says that she has L sided weakness b/c of her DJD pain. She c/o neck pain from her DJD. In the ER, Glc 121, WBC 12.6, Hgb 11.8, CO2 37,CK 16. CSpine CT: DJD C1-C2, C5-C6, C6-C7. CT Head: chronic microvascular ischemic changes; NAD Pt was given IVF in the ER. 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 : reports: Kidney stones HEENT: reports: None Psych: reports: None Musculoskeletal: reports: Chronic back pain Derm: reports: None MRSA Hx?: No - POLST Patient has POLST: No Meds/Allgy - Home Medications Home Medications: Ambulatory Orders Medication Instructions Recorded Confirmed Tiotropium [Spiriva] 1 puffs INH DAILY 10/27/12 03/21/19 Acetaminophen [Tylenol] 650 mg PO DAILY 03/21/19 03/21/19 Albuterol Sulfate [Proventil Hfa 1 - 2 puffs INH Q4H PRN 03/21/19 03/21/19 Inhaler] Aspirin [Aspirin EC] 81 mg PO DAILY 03/21/19 03/21/19 Liane-C 1,000 mg PO DAILY 03/21/19 Fluticasone/Salmeterol [Advair 1 each IH BID 03/21/19 03/21/19 500-50 Diskus] Furosemide [Lasix] 40 mg PO DAILY 03/21/19 03/21/19 Losartan [Cozaar] 50 mg PO BID 03/21/19 03/21/19 Potassium Chloride [Klor-Con 10] 10 meq PO DAILY 03/21/19 03/21/19 dilTIAZem HCL [Diltiazem ER] 240 mg PO DAILY 03/21/19 03/21/19 terbinafine HCL [Terbinafine HCl] 250 mg PO DAILY 03/21/19 03/21/19 Acyclovir [Zovirax] 800 mg PO 5XD 7 Days #35 tablet 04/26/19 Azithromycin [Zithromax] 250 mg PO DAILY #4 tablet 06/13/19 Cefdinir 300 mg PO BID #20 capsule 06/13/19 Ondansetron Odt [Zofran Odt] 4 mg TL Q6H PRN #10 tablet 08/15/21 Tamsulosin HCl [Flomax] 0.4 mg PO DAILY #30 cap 08/15/21 oxyCODONE [Roxicodone] 5 mg PO TID PRN #20 tablet 08/15/21 predniSONE [Deltasone] 40 mg PO DAILY #10 tablet 03/06/22 Cefdinir 300 mg PO BID #20 cap 07/06/22 Fluconazole [Diflucan] 150 mg PO ONCE PRN #1 tablet 07/06/22 HYDROcod/ACETAM 5/325 [[place] 5/325] 1 - 2 tab PO Q6H PRN #15 tablet 07/06/22 Azithromycin [Zithromax] 250 mg PO DAILY #4 tablet 07/20/22 predniSONE [Deltasone] 40 mg PO DAILY 4 Days #8 tablet 07/20/22 - Allergies Allergies/Adverse Reactions: Allergies Allergy/AdvReac Type Severity Reaction Status Date / Time Penicillins Allergy Intermediate Hives, Verified 07/06/22 14:29 swelling aspirin Allergy Mild Rash Verified 07/06/22 14:29 piroxicam [From Feldene] Allergy Mild Rash Verified 07/06/22 14:29 meperidine [From Demerol] Allergy Unknown Verified 07/06/22 14:29 Review of Systems - All Other Systems All Other Systems: reports: Reviewed and negative Exam - Vital Signs Reviewed Vital Signs: Yes Vital Signs: Vital Signs x48h Temp Pulse Resp BP Pulse Ox 08/13/22 17:56 79 15 115/60 98 08/13/22 15:47 37.2 C 84 20 112/60 94 - Physical Exam General Appearance: positive: No acute distress, Alert, Other (Exam done by Access cart, but stethoscope not working) Eyes Bilateral: positive: PERRL, EOMI, No scleral icterus Respiratory: positive: Other (Access cart stethoscope not working; per ER Provider: Decreased BS throughout) Cardiovascular: positive: Other ( Access cart stethoscope not working; per ER Provider: RRR, no murmurs) Abdomen: positive: Other (per ER Provider: non-distended, NT, Soft) Neurologic/Psychiatric: positive: Oriented x3, CN's nml (2-12), Mood/affect nml, Other (Normal speech, unable to do Strength eval remotely. Per ER Provider, pt has decreased strength in LLE. 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 -will admit to Obs to telemetry to eval for CVA -MRI, Echo, Carotid U/S ordered -ASA 325 mg PO x 1 now, then 81 mg PO qd -bedside swallow eval. -PT/OT consults -CM consult L sided pain s/p GLF Neck pain s/p GLF DJD H/o recent L hip fracture s/p ORIF -CSpine CT: DJD C1-C2, C5-C6, C6-C7. -Xray LLE ordered -continue home medications: Tylenol, Oxycodone PRN Leukocytosis -WBC 11.7 -U/A neg -CXR ordered Severe COPD on home 6L NC O2 -CO2 37 -continue O2 support -continue home medications: Spiriva, nebs, Prednisone HTN -continue home medications: Losartan, Diltiazem, Lasix, KCl Nephrolithiasis -continue home medications: Flomax VTE Prophylaxis: Lovenox Code Status: D/W pt and daughter; she is Full Code ~Nury Banda MD Hospitalist - Lab Results Lab results reviewed: Yes Fish Bones: 08/13/22 19:57 08/13/22 16:15
[2022-08-13] MEDS ORDERED: ACETAMINOPHEN 650 MG SUPP PR PRN (19:43)
[2022-08-13] MEDS ORDERED: ACETAMINOPHEN 325 MG TABLET PO PRN (19:43)
[2022-08-13] MEDS ORDERED: ONDANSETRON ODT 4 MG TABLET TL PRN (19:43)
[2022-08-13] MEDS ORDERED: ONDANSETRON 4 MG/2 ML VIAL IVP PRN (19:43)
[2022-08-13] MEDS ORDERED: oxyCODONE 5 MG TABLET PO PRN (19:52)
[2022-08-13] MEDS ORDERED: ASPIRIN 325 MG TABLET PO SCH (20:00)
[2022-08-13 20:03] LABS: BASOPHILS % (AUTO) 0.3 %; EOSINOPHILS # (AUTO) 0.1 10^3/uL (0.0-0.7); EOSINOPHILS % (AUTO) 0.6 %; HCT - HEMATOCRIT 36.3 % (37.0-47.0); HGB - HEMOGLOBIN 10.7 g/dL (12.0-16.0); LYMPHOCYTES # (AUTO) 0.8 10^3/uL (1.5-3.5); LYMPHOCYTES % (AUTO) 7.2 %; MEAN CORPUSCULAR HEMOGLOBIN 27.8 pg (27.0-31.0); MEAN CORPUSCULAR HGB CONC 29.5 g/dL (32.0-36.0); MEAN CORPUSCULAR VOLUME 94.3 fL (81.0-99.0); MEAN PLATELET VOLUME 9.4 fL (7.9-10.8); MONOCYTES % (AUTO) 8.7 %; NEUTROPHILS # (AUTO) 9.7 10^3/uL (1.5-6.6); NEUTROPHILS % (AUTO) 82.8 %; PLT - PLATELET COUNT 331 10^3/uL (130-450); RED BLOOD COUNT 3.85 10^6/uL (4.20-5.40); RED CELL DISTRIBUTION WIDTH 12.6 % (12.0-15.0); WHITE BLOOD COUNT 11.7 x10^3/uL (4.8-10.8)
[2022-08-13] MEDS ORDERED: LOSARTAN 50 MG TABLET PO SCH (21:00)
--- NOTE | 2022-08-13 21:30 | XRAY Report ---
PROCEDURE: Chest 1 View X-Ray INDICATIONS: Leukocytosis TECHNIQUE: One view of the chest was acquired. COMPARISON: Chest radiographs 07/20/2022 FINDINGS: Surgical changes and devices: None. Lungs and pleura: New right upper lung zone opacity in the perihilar region. Lungs are otherwise ivy ar. No pleural effusion or pneumothorax. Mediastinum: Mediastinal contours appear normal. Heart size is normal. Bones and chest wall: No suspicious bony lesions. Overlying soft tissues appear unremarkable. Sev ere degenerative changes are seen in the shoulders. IMPRESSION: New right upper lung zone opacity is suspicious for pneumonia. Reviewed by: Jay Esteban MD on 08/13/2022 9:28 PM PDT Approved by: Jay Esteban MD on 08/13/2022 9:28 PM PDT Station ID: [id number]
--- NOTE | 2022-08-13 21:48 | XRAY Report ---
PROCEDURE: Hip w/Pelvis 2-3V LT INDICATIONS: L hip weakness TECHNIQUE: AP pelvis with lateral view of the left hip. COMPARISON: Left hip radiographs 08/08/2022 FINDINGS: Bones: Postsurgical changes are again seen from left proximal femoral fracture fixation with 3 cannu lated lag screws. Osseous alignment does not appear significantly changed given differences in positi oning between exams. There is generalized osteopenia. No new osseous fracture identified. Degenerativ e changes are seen in the included lumbar spine. Soft tissues: No suspicious soft tissue calcifications or masses. IMPRESSION: Left proximal femoral fracture fixation hardware does not appear significantly changed. No new osseou s abnormality identified. Reviewed by: Jay Esteban MD on 08/13/2022 9:47 PM PDT Approved by: Jay Esteban MD on 08/13/2022 9:47 PM PDT Station ID: [id number]
[2022-08-14] MEDS: SODIUM CHLORIDE FLUSH 0.9% 10 ML SYRINGE IVP SCH ×3 (01:06→19:59)
[2022-08-14] MEDS: IPRATROPIUM 0.2 MG/ML NEB INH SCH ×4 (02:04→18:59)
[2022-08-14 05:31] LABS: BASOPHILS % (AUTO) 0.4 %; EOSINOPHILS # (AUTO) 0.1 10^3/uL (0.0-0.7); EOSINOPHILS % (AUTO) 1.4 %; HCT - HEMATOCRIT 36.4 % (37.0-47.0); HGB - HEMOGLOBIN 10.6 g/dL (12.0-16.0); LYMPHOCYTES # (AUTO) 1.2 10^3/uL (1.5-3.5); LYMPHOCYTES % (AUTO) 12.2 %; MEAN CORPUSCULAR HEMOGLOBIN 27.7 pg (27.0-31.0); MEAN CORPUSCULAR HGB CONC 29.1 g/dL (32.0-36.0); MEAN PLATELET VOLUME 9.6 fL (7.9-10.8); MONOCYTES % (AUTO) 9.8 %; NEUTROPHILS # (AUTO) 7.4 10^3/uL (1.5-6.6); NEUTROPHILS % (AUTO) 75.7 %; PLT - PLATELET COUNT 360 10^3/uL (130-450); RED BLOOD COUNT 3.83 10^6/uL (4.20-5.40); RED CELL DISTRIBUTION WIDTH 12.8 % (12.0-15.0); WHITE BLOOD COUNT 9.8 x10^3/uL (4.8-10.8)
[2022-08-14 05:44] LABS: CALCIUM 8.3 mg/dL (8.5-10.3); CREATININE 0.5 mg/dL (0.4-1.0); POTASSIUM 3.7 mmol/L (3.5-5.0)
[2022-08-14] MEDS: BUDESONIDE 0.5 MG/2 ML NEB INH SCH ×2 (07:54→18:59)
[2022-08-14] MEDS: FORMOTEROL FUMARATE NEB 20 MCG/2 ML INH SCH ×2 (07:54→18:58)
[2022-08-14] MEDS ORDERED: TAMSULOSIN 0.4 MG CAPSULE PO SCH ×2 (09:00→10:46)
[2022-08-14] MEDS ORDERED: ASPIRIN EC 81 MG TABLET PO SCH (09:00)
[2022-08-14] MEDS ORDERED: predniSONE 20 MG TABLET PO SCH ×2 (09:00→12:00)
[2022-08-14] MEDS ORDERED: FUROSEMIDE 20 MG TABLET PO SCH (09:00)
[2022-08-14] MEDS ORDERED: LOSARTAN 50 MG TABLET PO SCH (09:05)
--- NOTE | 2022-08-14 09:23 | PROVIDER PROGRESS NOTE ---
Assessment/Plan - Problem List (1) Left leg weakness Assessment/Plan: On exam today she still has 4/5 leg and foot weakness compared to the right leg. 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 That was the fall f rom 3 days ago. Following that she rolled out of bed 2 days later, landing on her left side she thinks. She complained of L sided pain s/p GLF and neck pain s/p GLF, in the ED. H/o recent L hip fracture s/p ORIF Her CSpine CT showed : DJD C1-C2, C5-C6, C6-C7 Plan: Xray LLE ordered Will order orthoststic VS checks Will put hold paramaters on any meds that may drop her BP Continue pain meds, but will hold Gabapentin, in case it caused weakness and fall 3) COPD on home O2 Impression: Plan: We will continue her usual 5 to 6 L/min O2 supplemental via n.c. We will order any usual respiratory meds, once her medication list is reconciled by pharmacy. 4) Leukocytosis Impression: Resolved U/A neg and CXR WNL. Labs were all reviewed. WBC 11.7 has normalized without specific treatment to 9.8 today - Current Meds Current Meds: Current Medications Generic Name Dose Route Start Last Admin Trade Name Freq PRN Reason Stop Dose Admin Budesonide 0.5 mg 08/14/22 07:00 08/14/22 07:54 Budesonide 0.5 Mg/2 Ml Neb INH 0.5 mg RTBID HENOK Administration Formoterol Fumarate 20 mcg 08/14/22 07:00 08/14/22 07:54 Formoterol Fumarate Neb 20 Mcg/2 Ml INH 20 mcg RTBID HENOK Administration Ipratropium [place] 0.5 mg 08/14/22 01:00 08/14/22 07:54 Ipratropium 0.2 Mg/Ml Neb INH 0.5 mg RTQ6H HENOK Administration Sodium Chloride 10 ml 08/14/22 01:00 08/14/22 01:06 Sodium Chloride Flush 0.9% 10 Ml Syringe IVP 10 ml 0100,0900,1700 HENOK Administration - Lab Result Fish Bone Diagrams: 08/14/22 05:04 08/14/22 05:04 - Additional Planning My Orders: My Active Orders 08/14/22 05:00 LIPID Panel [CHEM] Routine 08/14/22 09:02 Neuro Check [RC] Q4HR 08/14/22 09:03 Telemetry- [RC] Q4HR 08/14/22 09:05 Swallow Screen - Nursing [RC] ONCE Losartan [Cozaar] 50 mg PO BID 08/14/22 09:14 Admit [Admit \ Transfer \ Status] [RC] .ONCE 08/14/22 Lunch DIET [Dysphagia - Minced and Moist] [DIET] 08/15/22 07:00 Echo Complete w/Bubble Study [ECHO] Routine Subjective - Subjective Patient Reports: Feeling Better (She describes having more energy, and is obviously more alert. She continues to say her left leg feels weaker than it normally is and there is no left hip pain that is causing the weakness of the left leg) Objective Vital Signs: Vital Signs - 24 hr 08/13/22 08/13/22 08/13/22 15:47 17:56 19:50 Temperature 37.2 C Heart Rate 84 79 77 Heart Rate [ Radial] Respiratory 20 15 Rate Blood Pressure 112/60 115/60 105/46 L Blood Pressure [Right Brachial artery] O2 Saturation 94 98 If not protocol : Oxygen Flow, liters/minute 08/13/22 08/13/22 08/13/22 20:22 21:00 21:05 Temperature 37.0 C Heart Rate Heart Rate [ 82 Radial] Respiratory 22 Rate Blood Pressure Blood Pressure 108/44 L [Right Brachial artery] O2 Saturation 92 If not protocol 5 5 5 : Oxygen Flow, liters/minute 08/13/22 08/13/22 08/14/22 22:19 23:47 02:08 Temperature 36.9 C Heart Rate Heart Rate [ 70 Radial] Respiratory 20 Rate Blood Pressure Blood Pressure 104/33 L 100/44 L [Right Brachial artery] O2 Saturation 99 If not protocol 5 5 : Oxygen Flow, liters/minute 08/14/22 08/14/22 08/14/22 02:11 05: 07:56 Temperature 37.0 C Heart Rate 68 75 Heart Rate [ 73 Radial] Respiratory 20 20 18 Rate Blood Pressure Blood Pressure 106/57 L [Right Brachial artery] O2 Saturation 98 If not protocol 5 4 4 : Oxygen Flow, liters/minute 08/14/22 08:10 Temperature 36.5 C Heart Rate Heart Rate [ 72 Radial] Respiratory 20 Rate Blood Pressure Blood Pressure 112/47 L [Right Brachial artery] O2 Saturation 96 If not protocol 4 : Oxygen Flow, liters/minute Oxygen O2 Source Nasal cannula I&O (Last 24 Hrs): Intake and Output Totals x24h 08/12/22 08/13/22 08/14/22 23:59 23:59 23:59 Intake Total 1000 Output Total 0 Balance 1000 0 General: Alert, Oriented x3 HEENT: Mucous membr. moist/pink, Other (Cachectic. Edentulous) Neck: Supple Neuro: Alert, Other (Left leg 4/5 compared to right which is 5/5) Cardiovascular: Regular rate, No murmurs Respiratory: No respiratory distress, Breath sounds nml Abdomen: Normal bowel sounds, Soft Extremities: No clubbing, No edema, No tenderness/swelling - Results Results: Laboratory Results WBC 9.8 x10^3/uL (4.8-10.8) 08/14/22 05:04 RBC 3.83 10^6/uL (4.20-5.40) L 08/14/22 05:04 Hgb 10.6 g/dL (12.0-16.0) L 08/14/22 05:04 Hct 36.4 % (37.0-47.0) L 08/14/22 05:04 MCV 95.0 fL (81.0-99.0) 08/14/22 05:04 MCH 27.7 pg (27.0-31.0) 08/14/22 05:04 MCHC 29.1 g/dL (32.0-36.0) L 08/14/22 05:04 RDW 12.8 % (12.0-15.0) 08/14/22 05:04 Plt Count 360 10^3/uL (130-450) 08/14/22 05:04 MPV 9.6 fL (7.9-10.8) 08/14/22 05:04 Neut # (Auto) 7.4 10^3/uL (1.5-6.6) H 08/14/22 05:04 Lymph # (Auto) 1.2 10^3/uL (1.5-3.5) L 08/14/22 05:04 [place] # (Auto) 1.0 10^3/uL (0.0-1.0) 08/14/22 05:04 Eos # (Auto) 0.1 10^3/uL (0.0-0.7) 08/14/22 05:04 Baso # (Auto) 0.0 10^3/uL (0.0-0.1) 08/14/22 05:04 Absolute Nucleated RBC 0.00 x10^3/uL 08/14/22 05:04 Nucleated RBC % 0.0 /100WBC 08/14/22 05:04 Manual Slide Review Indicated 08/13/22 16:15 Platelet Estimate NORMAL (130-450,000) (NORMAL) 08/13/22 16:15 Platelet Morphology NORMAL APPEARANCE (NORMAL) 08/13/22 16:15 RBC Morph Micro Appear 1+ HYPOCHROMASIA (NORMAL) 08/13/22 16:15 Sodium 141 mmol/L (135-145) 08/14/22 05:04 Potassium 3.7 mmol/L (3.5-5.0) 08/14/22 05:04 Chloride 99 mmol/L (101-111) L 08/14/22 05:04 Carbon Dioxide 36 mmol/L (21-32) H 08/14/22 05:04 Anion Gap 6.0 (6-13) 08/14/22 05:04 BUN 21 mg/dL (6-20) H 08/14/22 05:04 Creatinine 0.5 mg/dL (0.4-1.0) 08/14/22 05:04 Estimated GFR (MDRD) 118 (>89) 08/14/22 05:04 Glucose 95 mg/dL (70-100) 08/14/22 05:04 Calcium 8.3 mg/dL (8.5-10.3) L 08/14/22 05:04 Magnesium 2.1 mg/dL (1.7-2.8) 08/13/22 16:15 Total Bilirubin 0.7 mg/dL (0.2-1.0) 08/13/22 16:15 AST 17 IU/L (10-42) 08/13/22 16:15 ALT 17 IU/L (10-60) 08/13/22 16:15 Alkaline Phosphatase 87 IU/L (42-121) 08/13/22 16:15 Total Creatine Kinase 16 IU/L (22-269) L 08/13/22 16:15 Troponin I High Sens 10.5 ng/L (2.3-14.8) 08/13/22 19:57 Total Protein 6.6 g/dL (6.7-8.2) L 08/13/22 16:15 Albumin 2.7 g/dL (3.2-5.5) L 08/13/22 16:15 Globulin 3.9 g/dL (2.1-4.2) 08/13/22 16:15 Albumin/Globulin Ratio 0.7 (1.0-2.2) L 08/13/22 16:15 Urine Color YELLOW 08/13/22 17:52 Urine Clarity CLEAR (CLEAR) 08/13/22 17:52 Urine pH 5.0 PH (5.0-7.5) 08/13/22 17:52 Ur Specific [place] 1.015 (1.002-1.030) 08/13/22 17:52 Urine Protein NEGATIVE mg/dL (NEGATIVE) 08/13/22 17:52 Urine Glucose (UA) NEGATIVE mg/dL (NEGATIVE) 08/13/22 17:52 Urine Ketones NEGATIVE mg/dL (NEGATIVE) 08/13/22 17:52 Urine Occult Blood NEGATIVE (NEGATIVE) 08/13/22 17:52 Urine Nitrite NEGATIVE (NEGATIVE) 08/13/22 17:52 Urine Bilirubin NEGATIVE (NEGATIVE) 08/13/22 17:52 Urine Urobilinogen 0.2 (NORMAL) E.U./dL (NORMAL) 08/13/22 17:52 Ur Leukocyte Esterase NEGATIVE (NEGATIVE) 08/13/22 17:52 Ur Microscopic Review NOT INDICATED 08/13/22 17:52 Urine Culture Comments NOT INDICATED 08/13/22 17:52 - Procedures Procedures: Procedures EXCISION OF CECUM, ENDO (03/24/19) EXCISION OF SIGMOID COLON, ENDO (03/24/19) EXCISION OF TRANSVERSE COLON, ENDO (03/24/19)
[2022-08-14 09:32] LABS: CHOL/HDL RATIO 3.3 (<4.4); CHOLESTEROL 60 mg/dL; HDL CHOLESTEROL 18 mg/dL; LDL CHOLESTEROL,CALCULATED 28 mg/dL; LDL/HDL RATIO 1.6 (<4.4); TRIGLYCERIDES 68 mg/dL; VLDL CHOLESTEROL 14 mg/dL
[2022-08-14] MEDS: POTASSIUM CHLORIDE 10 MEQ CAPSULE PO SCH (09:39)
[2022-08-14] MEDS: ENOXAPARIN 40 MG/0.4 ML SYRINGE SUBQ SCH (09:39)
[2022-08-14] MEDS: ASPIRIN CHEW 81 MG TABLET PO SCH (09:39)
[2022-08-14] MEDS: diltiaZEM CD 240 MG CAPSULE PO SCH (09:56)
--- NOTE | 2022-08-14 10:00 | Ultrasound Report ---
PROCEDURE: Carotid Doppler Complete INDICATIONS: L side weakness TECHNIQUE: Color and pulse Doppler interrogation was performed of both carotid systems, with image documentation and velocity measurements. COMPARISON: None. FINDINGS: Right side: Brachial blood pressure: 112/47 mm Hg. Common carotid artery peak systolic velocity: 56 cm/sec. Internal carotid artery peak systolic velocity: 86 cm/sec. Internal carotid artery end diastolic velocity: 21 cm/sec. External carotid artery peak systolic velocity: 89 cm/sec. ICA/CCA peak systolic ratio: 1.5 . Arreola scale imaging description: Mixed calcified and noncalcified intimal medial thickening in the mi d and distal common carotid artery. Calcified and noncalcified plaque causing irregularity of the car otid bulb lumen and mild narrowing of the internal and external carotid artery origins. Waveforms rem ain normal. Percent internal carotid artery stenosis: Less than 50%. Vertebral artery: Flow direction is antegrade. Left side: Brachial blood pressure: Not obtained mm Hg. Common carotid artery peak systolic velocity: 61 cm/sec. Internal carotid artery peak systolic velocity: 68 cm/sec. Internal carotid artery end diastolic velocity: 23 cm/sec. External carotid artery peak systolic velocity: 86 cm/sec. ICA/CCA peak systolic ratio: 1.1 . Arreola scale imaging description: Mixed calcified and noncalcified intimal medial thickening throughou t the common carotid artery. Calcification at the carotid bulb without significant luminal stenosis. Mild narrowing of ICA origin. The waveforms remain normal. Percent internal carotid artery stenosis: Less than 50%. Vertebral artery: Flow direction is antegrade. IMPRESSION: 1. In the right internal carotid artery, there is less than 50 percent stenosis based on peak systoli c velocity criteria. 2. In the left internal carotid artery, there is less than 50 percent stenosis based on peak systolic velocity criteria. 3. Antegrade blood flow within the right vertebral artery. 4. Antegrade blood flow within the left vertebral artery. The estimate of stenosis included in the report of the imaging study was calculated using the [facility]-end orsed standards of carotid artery stenosis. Reviewed by: Jaida Easley MD on 08/14/2022 8:59 AM MARKIE Approved by: Jaida Easley MD on 08/14/2022 8:59 AM MARKIE Station ID: [id number]
[2022-08-14] MEDS: IPRATROPIUM/ALBUTEROL 3 ML NEB INH PRN ×2 (11:31→15:01)
--- NOTE | 2022-08-14 11:50 | PHARMACY PROGRESS NOTE ---
- Best Possible Medication History Admit Date and Time: 08/14/22913 Processed by: Pharmacy Medication History completed: Yes Patient Interview: Pt unable to participate Secondary Source(s): Physician records, Pharmacy records, Insurance records As the person ultimately responsible for medication therapy, providers are able to order a medication from an existing home medication list in [facility] via the "Reconcile Routine" prior to Confirmation of that medication by ground crewman mission support. Such practice is discouraged except when the physician, in their clinical judgment, deems that a medical need exists for a medication without regard to previous use.
[2022-08-14] MEDS ORDERED: ATORVASTATIN 10 MG TABLET PO SCH (21:00)
[2022-08-14] MEDS ORDERED: ZINC OXIDE 20% OINT 30 GM TUBE TOP PRN (23:50)
[2022-08-15] MEDS: SODIUM CHLORIDE FLUSH 0.9% 10 ML SYRINGE IVP SCH ×3 (01:00→16:32)
[2022-08-15] MEDS: IPRATROPIUM 0.2 MG/ML NEB INH SCH ×2 (01:30→06:45)
[2022-08-15 05:50] LABS: CALCIUM 8.4 mg/dL (8.5-10.3); CREATININE 0.6 mg/dL (0.4-1.0); POTASSIUM 3.7 mmol/L (3.5-5.0)
[2022-08-15] MEDS: IPRATROPIUM/ALBUTEROL 3 ML NEB INH PRN (07:03)
[2022-08-15] MEDS: FORMOTEROL FUMARATE NEB 20 MCG/2 ML INH SCH (07:03)
[2022-08-15] MEDS: BUDESONIDE 0.5 MG/2 ML NEB INH SCH (07:03)
[2022-08-15] MEDS: ENOXAPARIN 40 MG/0.4 ML SYRINGE SUBQ SCH (08:03)
[2022-08-15] MEDS: POTASSIUM CHLORIDE 10 MEQ CAPSULE PO SCH (08:04)
[2022-08-15] MEDS: diltiaZEM CD 240 MG CAPSULE PO SCH (08:05)
[2022-08-15] MEDS: ASPIRIN CHEW 81 MG TABLET PO SCH (08:05)
[2022-08-15] MEDS: TAMSULOSIN 0.4 MG CAPSULE PO SCH (08:08)
[2022-08-15] MEDS: OMEGA-3 ACID ETHYL ESTERS 1 GM CAPSULE PO SCH ×2 (12:30→16:32)
[2022-08-15] MEDS: IPRATROPIUM/ALBUTEROL 3 ML NEB INH SCH ×2 (13:19→16:41)
--- NOTE | 2022-08-15 13:58 | MRI Report ---
PROCEDURE: BRAIN WO INDICATIONS: L side weakness TECHNIQUE: Noncontrast axial T1 spin echo, axial T2 fast spin echo, sagittal and axial FLAIR, coronal T2 fast sp in echo, axial gradient echo, axial diffusion and ADC through the brain. COMPARISON: None. FINDINGS: Image quality: Excellent. CSF Spaces: Basal cisterns are patent. No extra-axial fluid collections. Ventricles are normal in size and shape. Brain: No intracranial masses or hemorrhage. [place]reola/white matter interface is normal. Brainstem appe ars normal. Diffusion-weighted images demonstrate no acute ischemic insult. No chronic ischemic ins ults. Age-related volume loss and moderate small vessel ischemic change. Normal intravascular flow vo ids are present. Skull and face: Calvarium has normal marrow signal. Orbits appear normal. Sinuses: Sinuses and mastoids are clear. IMPRESSION: 1. Age-related volume loss and moderate small vessel ischemic change. 2. No acute intracranial process. Reviewed by: Zheng Verdin MD on 08/15/2022 1:57 PM PDT Approved by: Zheng Verdin MD on 08/15/2022 1:57 PM PDT Station ID: [id number]
--- NOTE | 2022-08-15 15:26 | PROVIDER PROGRESS NOTE ---
Assessment/Plan - Problem List (1) Orthostatic hypotension Assessment/Plan: Patient has criteria for orthostasis: On 08/14 vital signs showed a supine syst BP of 111, when she stood syst BP dropped to 103, Heart rate supine was 97, it lucia to 137 with standing. Then today 08/15, heart rate supine was 80, heart rate lucia to 101 with standing. By this afternoon there was some improvement: her supine syst BP was 127, which dropped to 117 with standing. I suspect this is the cause of her feeling weakness and the fall at home and the pre-renal azotemia seen on labs 2 days ago (All labs were reviewed). Her Echocardiogram was done today and this showed normal LV and RV contractility, and mild pulm HTN w/ PA pressure of 47 mmHg. Plan: I will adjust meds because of this orthostasis. She takes Lasix 60 mg daily at home. Since her Echo done today does not show heart failure or cor pulmonale therefore this Lasix may be ordered to treat chronic leg edema, and I will decrease the dose from 60 mg daily to 20 mg daily after discharge. I will stop the current Lasix 60 mg and and will give gentle IV NS hydration for 1 day Follow orthostatics daily (2) Generalized weakness Assessment/Plan: The brain MRI was done today (they were not available the last 2 days over this weekend). The MRI showed only diffuse changes of atrophy, no evidence of old stroke or recent stroke. The patient does carry a diagnosis of polio, which may have given L>R leg weakness. Plan: PT and OT evaluations are to be done today 3) Fall at home Impression: Patient has a bruised and mildly swollen left upper eyelid. That was the fall from several days ago. Following that she rolled out of bed 2 days later, landing on her left side she thinks. She complained of L sided pain s/p GLF and neck pain s/p GLF, in the ED. H/o recent L hip fracture s/p ORIF Her CSpine CT showed : DJD C1-C2, C5-C6, C6-C7 Her orthostatic vital signs reveal volume depletion Plan: Will put hold paramaters on any meds that may drop her BP, will stop the Lasix and give gentle hydration for a day Continue pain meds, will restart Gabapentin at a lower dose PT and OT evaluations are to be done today 3) COPD with hypoxia Impression: Her Echocardiogram was done today and this showed normal LV and RV contractility, and mild pulm HTN w/ PA pressure of 47 mmHg, likley caused by COPD. I have written clarification that patient says saturation should be 88% or above, that she should be on 2 to 5 L/min O2 at rest and increase up to 3 to 6 L/min O2 with activity. Plan: We will continue her usual 2 to 6 L/min O2 supplemental via n.c. (4) PSVT Telemetry monitoring on 08/14/2022 showed short runs of PSVT, at rates of 115. PSVT is very common in patients with lung disease Plan: We will continue her home dose of Cardizem (5) Severe protein calorie malnutrition The patient's BMI is only 17. She screened for excessive weight loss, done by our Colon And Rectal Surgeon Her labs show a LDL of 48 and an HDL of 18, and she was on a statin. Plan: Will allow a more liberalized diet with Colon And Rectal Surgeon to take her meal choices I will stop her statin and Dch her off the statin We will start omega-3 tablet daily to increase her HDL - Current Meds Current Meds: Current Medications Generic Name Dose Route Start Last Admin Trade Name Freq PRN Reason Stop Dose Admin Albuterol/Ipratropium 3 ml 08/13/22 20:46 08/15/22 07:03 Ipratropium/Albuterol 3 Ml Neb INH 3 ml Q4HR PRN Administration Wheezing Albuterol/Ipratropium 3 ml 08/15/22 11:00 08/15/22 13:19 Ipratropium/Albuterol 3 Ml Neb INH 3 ml RTQID HENOK Administration Aspirin 81 mg 08/14/22 09:00 08/15/22 08:05 Aspirin Chew 81 Mg Tablet PO 81 mg DAILY HENOK Administration Budesonide 0.5 mg 08/14/22 07:00 08/15/22 07:03 Budesonide 0.5 Mg/2 Ml Neb INH 0.5 mg RTBID HENOK Administration Diltiazem HCl 240 mg 08/14/22 09:00 08/15/22 08:05 Diltiazem Cd 240 Mg Capsule PO 240 mg DAILY HENOK Administration Enoxaparin Sodium 40 mg 08/14/22 09:00 08/15/22 08:03 Enoxaparin 40 Mg/0.4 Ml Syringe SUBQ 40 mg DAILY HENOK Administration [id number] Ethyl Esters 1 gm 08/15/22 12:00 08/15/22 12:30 [place]-3 Acid Ethyl Esters 1 Gm Capsule PO 1 gm BIDWM HENOK Administration Potassium Chloride 10 meq 08/14/22 08:00 08/15/22 08:04 Potassium Chloride 10 Meq Capsule PO 10 meq DAILYWM HENOK Administration Sodium Chloride 10 ml 08/14/22 01:00 08/15/22 08:05 Sodium Chloride Flush 0.9% 10 Ml Syringe IVP 10 ml 0100,0900,1700 HENOK Administration Tamsulosin HCl 0.4 mg 08/15/22 09:00 08/15/22 08:08 Tamsulosin 0.4 Mg Capsule PO 0.4 mg DAILY HENOK Administration - Lab Result Fish Bone Diagrams: 08/14/22 05:04 08/15/22 05:35 - Additional Planning My Orders: My Active Orders 08/15/22 09:00 Tamsulosin [Flomax] 0.4 mg PO DAILY 08/15/22 09:31 Nebulizer/MDI Tx. [RC] QID Resp Teach Nebulizer/MDI [RC] .ONCE 08/15/22 10:58 Miscellaenous Nursing Order [RC] QSHIFT 08/15/22 11:00 Ipratropium/Albuterol [Duoneb] 3 ml INH RTQID 08/15/22 Lunch DIET [Regular Diet] [DIET] 08/15/22 12:00 [place]-3 Acid Ethyl Esters [Lovaza] 1 gm PO BIDWM 08/15/22 17:00 Multivitamin W/Minerals [Theragran M] 1 tab PO DAILYWM Subjective - Subjective Patient Reports: Shortness of Breath, Other (When asked how she feels and what her goals are most of her answers are "I do not know") Nursing Reports: Other (Patient said she was too tired to stand up and do walking with PT and OT) Objective Vital Signs: Vital Signs - 24 hr 08/14/22 08/14/22 08/14/22 16:55 18:59 21:00 Temperature 37.1 C 36.8 C Heart Rate 86 Heart Rate [ 77 Brachial] Heart Rate [ 91 Radial] Respiratory 18 22 16 Rate Blood Pressure 107/51 L 120/87 H [Right Brachial artery] O2 Saturation 90 L 94 If not protocol 2 2 2 : Oxygen Flow, liters/minute 08/14/22 08/15/22 08/15/22 23:33 03:46 07:08 Temperature 36.9 C 36.9 C Heart Rate 85 Heart Rate [ 76 80 Brachial] Heart Rate [ Radial] Respiratory 20 20 16 Rate Blood Pressure 111/51 L 123/66 [Right Brachial artery] O2 Saturation 92 96 If not protocol 2 2 1 : Oxygen Flow, liters/minute 08/15/22 08/15/22 08/15/22 07:47 09:00 10:35 Temperature 36.8 C 36.8 C 36.6 C Heart Rate Heart Rate [ 97 92 86 Brachial] Heart Rate [ Radial] Respiratory 18 18 20 Rate Blood Pressure 137/54 H 137/54 H 119/70 [Right Brachial artery] O2 Saturation 89 L 89 L 92 If not protocol 2 2 2 : Oxygen Flow, liters/minute 08/15/22 08/15/22 13:00 13:20 Temperature 36.8 C Heart Rate 64 Heart Rate [ 91 Brachial] Heart Rate [ Radial] Respiratory 18 18 Rate Blood Pressure 122/65 [Right Brachial artery] O2 Saturation 89 L If not protocol 2 2 : Oxygen Flow, liters/minute Oxygen O2 Source Nasal cannula I&O (Last 24 Hrs): Intake and Output Totals x24h 08/13/22 08/14/22 08/15/22 23:59 23:59 23:59 Intake Total 1000 780 832 Output Total 1750 50 Balance 1000 -970 782 General: Mild distress (She is using pursed lip breathing when answering with long sentences), Other (Lethargic) HEENT: Other ([place]irs[place], edentulous) Neuro: Alert, Other (Poor memory, has generalized weakness) Cardiovascular: No murmurs Respiratory: Breath sounds nml (She is tachypneic but lung fernández are clear) Abdomen: Normal bowel sounds, Soft Extremities: No clubbing, No edema - Results Results: Laboratory Results WBC 9.8 x10^3/uL (4.8-10.8) 08/14/22 05:04 RBC 3.83 10^6/uL (4.20-5.40) L 08/14/22 05:04 Hgb 10.6 g/dL (12.0-16.0) L 08/14/22 05:04 Hct 36.4 % (37.0-47.0) L 08/14/22 05:04 MCV 95.0 fL (81.0-99.0) 08/14/22 05:04 MCH 27.7 pg (27.0-31.0) 08/14/22 05:04 MCHC 29.1 g/dL (32.0-36.0) L 08/14/22 05:04 RDW 12.8 % (12.0-15.0) 08/14/22 05:04 Plt Count 360 10^3/uL (130-450) 08/14/22 05:04 MPV 9.6 fL (7.9-10.8) 08/14/22 05:04 Neut # (Auto) 7.4 10^3/uL (1.5-6.6) H 08/14/22 05:04 Lymph # (Auto) 1.2 10^3/uL (1.5-3.5) L 08/14/22 05:04 [place] # (Auto) 1.0 10^3/uL (0.0-1.0) 08/14/22 05:04 Eos # (Auto) 0.1 10^3/uL (0.0-0.7) 08/14/22 05:04 Baso # (Auto) 0.0 10^3/uL (0.0-0.1) 08/14/22 05:04 Absolute Nucleated RBC 0.00 x10^3/uL 08/14/22 05:04 Nucleated RBC % 0.0 /100WBC 08/14/22 05:04 Manual Slide Review Indicated 08/13/22 16:15 Platelet Estimate NORMAL (130-450,000) (NORMAL) 08/13/22 16:15 Platelet Morphology NORMAL APPEARANCE (NORMAL) 08/13/22 16:15 RBC Morph Micro Appear 1+ HYPOCHROMASIA (NORMAL) 08/13/22 16:15 Sodium 139 mmol/L (135-145) 08/15/22 05:35 Potassium 3.7 mmol/L (3.5-5.0) 08/15/22 05:35 Chloride 95 mmol/L (101-111) L 08/15/22 05:35 Carbon Dioxide 36 mmol/L (21-32) H 08/15/22 05:35 Anion Gap 8.0 (6-13) 08/15/22 05:35 BUN 15 mg/dL (6-20) 08/15/22 05:35 Creatinine 0.6 mg/dL (0.4-1.0) 08/15/22 05:35 Estimated GFR (MDRD) 96 (>89) 08/15/22 05:35 Glucose 111 mg/dL (70-100) H 08/15/22 05:35 Calcium 8.4 mg/dL (8.5-10.3) L 08/15/22 05:35 Magnesium 2.0 mg/dL (1.7-2.8) 08/15/22 05:35 Total Bilirubin 0.7 mg/dL (0.2-1.0) 08/13/22 16:15 AST 17 IU/L (10-42) 08/13/22 16:15 ALT 17 IU/L (10-60) 08/13/22 16:15 Alkaline Phosphatase 87 IU/L (42-121) 08/13/22 16:15 Total Creatine Kinase 16 IU/L (22-269) L 08/13/22 16:15 Troponin I High Sens 9.3 ng/L (2.3-14.8) 08/15/22 05:35 Total Protein 6.6 g/dL (6.7-8.2) L 08/13/22 16:15 Albumin 2.7 g/dL (3.2-5.5) L 08/13/22 16:15 Globulin 3.9 g/dL (2.1-4.2) 08/13/22 16:15 Albumin/Globulin Ratio 0.7 (1.0-2.2) L 08/13/22 16:15 Triglycerides 68 mg/dL (-149) 08/14/22 05:04 Cholesterol 60 mg/dL (-199) 08/14/22 05:04 LDL Cholesterol, Calc 28 mg/dL (-129) 08/14/22 05:04 VLDL Cholesterol 14 mg/dL 08/14/22 05:04 HDL Cholesterol 18 mg/dL (60-) L 08/14/22 05:04 LDL/HDL Ratio 1.6 (<4.4) 08/14/22 05:04 Cholesterol/HDL Ratio 3.3 (<4.4) 08/14/22 05:04 Urine Color YELLOW 08/13/22 17:52 Urine Clarity CLEAR (CLEAR) 08/13/22 17:52 Urine pH 5.0 PH (5.0-7.5) 08/13/22 17:52 Ur Specific [place] 1.015 (1.002-1.030) 08/13/22 17:52 Urine Protein NEGATIVE mg/dL (NEGATIVE) 08/13/22 17:52 Urine Glucose (UA) NEGATIVE mg/dL (NEGATIVE) 08/13/22 17:52 Urine Ketones NEGATIVE mg/dL (NEGATIVE) 08/13/22 17:52 Urine Occult Blood NEGATIVE (NEGATIVE) 08/13/22 17:52 Urine Nitrite NEGATIVE (NEGATIVE) 08/13/22 17:52 Urine Bilirubin NEGATIVE (NEGATIVE) 08/13/22 17:52 Urine Urobilinogen 0.2 (NORMAL) E.U./dL (NORMAL) 08/13/22 17:52 Ur Leukocyte Esterase NEGATIVE (NEGATIVE) 08/13/22 17:52 Ur Microscopic Review NOT INDICATED 08/13/22 17:52 Urine Culture Comments NOT INDICATED 08/13/22 17:52 - Procedures Procedures: Procedures EXCISION OF CECUM, ENDO (03/24/19) EXCISION OF SIGMOID COLON, ENDO (03/24/19) EXCISION OF TRANSVERSE COLON, ENDO (03/24/19)
[2022-08-15] MEDS ORDERED: ALBUTEROL NEB 2.5 MG/3 ML INH PRN (15:43)
[2022-08-15] MEDS: MULTIVITAMIN W/MINERALS TABLET PO SCH (16:32)
[2022-08-15] MEDS ORDERED: SODIUM CHLORIDE 0.9% 1,000 ML IV SCH (17:00)
[2022-08-15] MEDS ORDERED: IPRATROPIUM 0.2 MG/ML NEB INH SCH (19:00)
[2022-08-15] MEDS ORDERED: GABAPENTIN 300 MG CAPSULE PO SCH (22:00)
[2022-08-15] MEDS: GABAPENTIN 100 MG CAPSULE PO SCH (22:48)
[2022-08-16] MEDS: SODIUM CHLORIDE FLUSH 0.9% 10 ML SYRINGE IVP SCH ×3 (00:30→15:47)
[2022-08-16] MEDS: GABAPENTIN 100 MG CAPSULE PO SCH ×3 (05:30→22:31)
[2022-08-16] MEDS: BUDESONIDE 0.5 MG/2 ML NEB INH SCH ×2 (06:01→07:38)
[2022-08-16] MEDS: IPRATROPIUM/ALBUTEROL 3 ML NEB INH SCH ×4 (06:02→16:30)
[2022-08-16] MEDS: MULTIVITAMIN W/MINERALS TABLET PO SCH (09:31)
[2022-08-16] MEDS: OMEGA-3 ACID ETHYL ESTERS 1 GM CAPSULE PO SCH ×2 (09:31→16:15)
[2022-08-16] MEDS: diltiaZEM CD 240 MG CAPSULE PO SCH (09:31)
[2022-08-16] MEDS: ASPIRIN CHEW 81 MG TABLET PO SCH (09:31)
[2022-08-16] MEDS: ENOXAPARIN 40 MG/0.4 ML SYRINGE SUBQ SCH (09:32)
[2022-08-16] MEDS: TAMSULOSIN 0.4 MG CAPSULE PO SCH (09:32)
[2022-08-16] MEDS: POTASSIUM CHLORIDE 10 MEQ CAPSULE PO SCH (09:32)
--- NOTE | 2022-08-16 17:54 | PROVIDER PROGRESS NOTE ---
Assessment/Plan - Problem List (1) Orthostatic hypotension Assessment/Plan: Patient had criteria for orthostasis when checked: On 08/14 vital signs showed a supine syst BP of 111, when she stood syst BP dropped to 103, Heart rate supine was 97, it lucia to 137 with standing. On 08/15, heart rate supine was 80, heart rate lucia to 101 with standing. I suspect this is the cause of her feeling weakness and the fall at home and the pre-renal azotemia seen on labs several days ago (All labs were reviewed). Her Echocardiogram was done 08/15 and this showed normal LV and RV contractility, and mild pulm HTN w/ PA pressure of 47 mmHg. I decreased her Lasix dose from 60 mg daily to 20 mg daily and gave 1L of iv fluids. Today 08/16, her syst BP sitting is 137 and standing BP dropped to 115. Plan: Will order another 1L of iv hydration and will stop Lasix Follow orthostatic VS daily (2) Generalized weakness Assessment/Plan: The brain MRI showed only diffuse changes of atrophy, no evidence of old stroke or recent stroke. The patient does carry a diagnosis of polio, which may have given L>R leg weakness. Plan: PT and OT to keep working with her and are recommending SNF for rehab 3) Fall at home Impression: Patient has a bruised and mildly swollen left upper eyelid. That was the fall from several days ago. Following that she rolled out of bed 2 days later, landing on her left side she thinks. She complained of L sided pain s/p GLF and neck pain s/p GLF, in the ED. H/o recent L hip fracture s/p ORIF Her CSpine CT showed : DJD C1-C2, C5-C6, C6-C7 Her orthostatic vital signs reveal volume depletion I restart Gabapentin yesterday at a lower dose of 100 mg TID not 300 mg TID Plan: IVF. Stop Lasix. Remain on lower gabapentin dose PT and OT rehab to cont 3) COPD with hypoxia Impression: Her Echocardiogram was done today and this showed normal LV and RV contractility, and mild pulm HTN w/ PA pressure of 47 mmHg, likley caused by COPD. I have written clarification that patient says saturation should be 88% or above, that she should be on 2 to 5 L/min O2 at rest and increase up to 3 to 6 L/min O2 with activity. Plan: We will continue her usual 2 to 6 L/min O2 supplemental via n.c. (4) PSVT Telemetry monitoring on 08/14/2022 showed short runs of PSVT, at rates of 115. PSVT is very common in patients with lung disease Plan: We will continue her home dose of Cardizem (5) Severe protein calorie malnutrition The patient's BMI is only 17. She screened for excessive weight loss, done by our Perforator Loader Her labs show a LDL of 48 and an HDL of 18, and she was on a statin. I ordered a more liberalized diet with Perforator Loader to take her meal choices I stopped her statin and Dch her off the statin I started her on omega-3 tablet daily to increase her HDL Plan: Will request Perforator Loader for recommendations, possibly Remeron. - Current Meds Current Meds: Current Medications Generic Name Dose Route Start Last Admin Trade Name Freq PRN Reason Stop Dose Admin Albuterol/Ipratropium 3 ml 08/13/22 20:46 08/15/22 07:03 Ipratropium/Albuterol 3 Ml Neb INH 3 ml Q4HR PRN Administration Wheezing Albuterol/Ipratropium 3 ml 08/15/22 11:00 08/16/22 16:30 Ipratropium/Albuterol 3 Ml Neb INH Not Given RTQID HENOK Aspirin 81 mg 08/14/22 09:00 08/16/22 09:31 Aspirin Chew 81 Mg Tablet PO 81 mg DAILY HENOK Administration Budesonide 0.5 mg 08/14/22 07:00 08/16/22 07:38 Budesonide 0.5 Mg/2 Ml Neb INH 0.5 mg RTBID HENOK Administration Diltiazem HCl 240 mg 08/14/22 09:00 08/16/22 09:31 Diltiazem Cd 240 Mg Capsule PO 240 mg DAILY HENOK Administration Enoxaparin Sodium 40 mg 08/14/22 09:00 08/16/22 09:32 Enoxaparin 40 Mg/0.4 Ml Syringe SUBQ 40 mg DAILY HENOK Administration Gabapentin 100 mg 08/15/22 22:00 08/16/22 14:22 Gabapentin 100 Mg Capsule PO 100 mg TID HENOK Administration Multivitamins/Minerals 1 tab 08/15/22 17:00 08/16/22 09:31 Multivitamin W/Minerals Tablet PO 1 tab DAILYWM HENOK Administration [id number]-5-[id number] Ethyl Esters 1 gm 08/15/22 12:00 08/16/22 16:15 [place]-3 Acid Ethyl Esters 1 Gm Capsule PO 1 gm BIDWM HENOK Administration Potassium Chloride 10 meq 08/14/22 08:00 08/16/22 09:32 Potassium Chloride 10 Meq Capsule PO 10 meq DAILYWM HENOK Administration Sodium Chloride 10 ml 08/14/22 01:00 08/16/22 15:47 Sodium Chloride Flush 0.9% 10 Ml Syringe IVP 10 ml 0100,0900,1700 HENOK Administration Tamsulosin HCl 0.4 mg 08/15/22 09:00 08/16/22 09:32 Tamsulosin 0.4 Mg Capsule PO 0.4 mg DAILY HENOK Administration - Lab Result Fish Bone Diagrams: 08/14/22 05:04 08/15/22 05:35 - Additional Planning My Orders: My Active Orders 08/15/22 17:00 Multivitamin W/Minerals [Theragran M] 1 tab PO DAILYWM 08/15/22 22:00 Gabapentin [Neurontin] 100 mg PO TID Subjective - Subjective Patient Reports: Resting Comfortably Nursing Reports: Other (She had slightly more motivation to work with PT and OT today, was able to walk to the chair) Objective Vital Signs: Vital Signs - 24 hr 08/15/22 08/16/22 08/16/22 20:18 00:13 05:25 Temperature 37.0 C 36.7 C 37.0 C Heart Rate Heart Rate [ 91 79 86 Brachial] Respiratory 20 20 20 Rate Blood Pressure 129/65 134/62 H 133/61 H [Right Brachial artery] O2 Saturation 96 96 93 If not protocol 2 2 2 : Oxygen Flow, liters/minute 08/16/22 08/16/22 08/16/22 07:38 07:59 09:00 Temperature 36.7 C 36.7 C Heart Rate 87 Heart Rate [ 93 88 Brachial] Respiratory 18 20 18 Rate Blood Pressure 138/62 H [Right Brachial artery] O2 Saturation 91 L 92 If not protocol 2 2 2 : Oxygen Flow, liters/minute 08/16/22 08/16/22 08/16/22 12:05 13:00 13:26 Temperature 36.7 C Heart Rate 88 Heart Rate [ 101 H Brachial] Respiratory 18 18 20 Rate Blood Pressure 122/47 L [Right Brachial artery] O2 Saturation 94 95 If not protocol 3 2 2 : Oxygen Flow, liters/minute 08/16/22 16:00 Temperature 36.9 C Heart Rate Heart Rate [ 73 Brachial] Respiratory 20 Rate Blood Pressure 121/47 L [Right Brachial artery] O2 Saturation 95 If not protocol 2 : Oxygen Flow, liters/minute Oxygen O2 Source Nasal cannula I&O (Last 24 Hrs): Intake and Output Totals x24h 08/14/22 08/15/22 08/16/22 23:59 23:59 23:59 Intake Total 780 1252 2300 Output Total 1750 250 500 Balance -970 1002 1800 General: No acute distress, Other (Lethargic) HEENT: Mucous membr. moist/pink, Other (eedntulous) Neck: Supple Neuro: Alert, Other (Poor memory) Cardiovascular: No murmurs Respiratory: No respiratory distress (weqaring O2 via n.c.) Extremities: No clubbing, No edema, Other ((+) skin tenting) - Results Results: Laboratory Results WBC 9.8 x10^3/uL (4.8-10.8) 08/14/22 05:04 RBC 3.83 10^6/uL (4.20-5.40) L 08/14/22 05:04 Hgb 10.6 g/dL (12.0-16.0) L 08/14/22 05:04 Hct 36.4 % (37.0-47.0) L 08/14/22 05:04 MCV 95.0 fL (81.0-99.0) 08/14/22 05:04 MCH 27.7 pg (27.0-31.0) 08/14/22 05:04 MCHC 29.1 g/dL (32.0-36.0) L 08/14/22 05:04 RDW 12.8 % (12.0-15.0) 08/14/22 05:04 Plt Count 360 10^3/uL (130-450) 08/14/22 05:04 MPV 9.6 fL (7.9-10.8) 08/14/22 05:04 Neut # (Auto) 7.4 10^3/uL (1.5-6.6) H 08/14/22 05:04 Lymph # (Auto) 1.2 10^3/uL (1.5-3.5) L 08/14/22 05:04 [place] # (Auto) 1.0 10^3/uL (0.0-1.0) 08/14/22 05:04 Eos # (Auto) 0.1 10^3/uL (0.0-0.7) 08/14/22 05:04 Baso # (Auto) 0.0 10^3/uL (0.0-0.1) 08/14/22 05:04 Absolute Nucleated RBC 0.00 x10^3/uL 08/14/22 05:04 Nucleated RBC % 0.0 /100WBC 08/14/22 05:04 Manual Slide Review Indicated 08/13/22 16:15 Platelet Estimate NORMAL (130-450,000) (NORMAL) 08/13/22 16:15 Platelet Morphology NORMAL APPEARANCE (NORMAL) 08/13/22 16:15 RBC Morph Micro Appear 1+ HYPOCHROMASIA (NORMAL) 08/13/22 16:15 Sodium 139 mmol/L (135-145) 08/15/22 05:35 Potassium 3.7 mmol/L (3.5-5.0) 08/15/22 05:35 Chloride 95 mmol/L (101-111) L 08/15/22 05:35 Carbon Dioxide 36 mmol/L (21-32) H 08/15/22 05:35 Anion Gap 8.0 (6-13) 08/15/22 05:35 BUN 15 mg/dL (6-20) 08/15/22 05:35 Creatinine 0.6 mg/dL (0.4-1.0) 08/15/22 05:35 Estimated GFR (MDRD) 96 (>89) 08/15/22 05:35 Glucose 111 mg/dL (70-100) H 08/15/22 05:35 Calcium 8.4 mg/dL (8.5-10.3) L 08/15/22 05:35 Magnesium 2.0 mg/dL (1.7-2.8) 08/15/22 05:35 Total Bilirubin 0.7 mg/dL (0.2-1.0) 08/13/22 16:15 AST 17 IU/L (10-42) 08/13/22 16:15 ALT 17 IU/L (10-60) 08/13/22 16:15 Alkaline Phosphatase 87 IU/L (42-121) 08/13/22 16:15 Total Creatine Kinase 16 IU/L (22-269) L 08/13/22 16:15 Troponin I High Sens 9.3 ng/L (2.3-14.8) 08/15/22 05:35 Total Protein 6.6 g/dL (6.7-8.2) L 08/13/22 16:15 Albumin 2.7 g/dL (3.2-5.5) L 08/13/22 16:15 Globulin 3.9 g/dL (2.1-4.2) 08/13/22 16:15 Albumin/Globulin Ratio 0.7 (1.0-2.2) L 08/13/22 16:15 Triglycerides 68 mg/dL (-149) 08/14/22 05:04 Cholesterol 60 mg/dL (-199) 08/14/22 05:04 LDL Cholesterol, Calc 28 mg/dL (-129) 08/14/22 05:04 VLDL Cholesterol 14 mg/dL 08/14/22 05:04 HDL Cholesterol 18 mg/dL (60-) L 08/14/22 05:04 LDL/HDL Ratio 1.6 (<4.4) 08/14/22 05:04 Cholesterol/HDL Ratio 3.3 (<4.4) 08/14/22 05:04 Urine Color YELLOW 08/13/22 17:52 Urine Clarity CLEAR (CLEAR) 08/13/22 17:52 Urine pH 5.0 PH (5.0-7.5) 08/13/22 17:52 Ur Specific [place] 1.015 (1.002-1.030) 08/13/22 17:52 Urine Protein NEGATIVE mg/dL (NEGATIVE) 08/13/22 17:52 Urine Glucose (UA) NEGATIVE mg/dL (NEGATIVE) 08/13/22 17:52 Urine Ketones NEGATIVE mg/dL (NEGATIVE) 08/13/22 17:52 Urine Occult Blood NEGATIVE (NEGATIVE) 08/13/22 17:52 Urine Nitrite NEGATIVE (NEGATIVE) 08/13/22 17:52 Urine Bilirubin NEGATIVE (NEGATIVE) 08/13/22 17:52 Urine Urobilinogen 0.2 (NORMAL) E.U./dL (NORMAL) 08/13/22 17:52 Ur Leukocyte Esterase NEGATIVE (NEGATIVE) 08/13/22 17:52 Ur Microscopic Review NOT INDICATED 08/13/22 17:52 Urine Culture Comments NOT INDICATED 08/13/22 17:52 - Procedures Procedures: Procedures EXCISION OF CECUM, ENDO (03/24/19) EXCISION OF SIGMOID COLON, ENDO (03/24/19) EXCISION OF TRANSVERSE COLON, ENDO (03/24/19)
[2022-08-16] MEDS ORDERED: SODIUM CHLORIDE 0.9% 1,000 ML IV SCH (19:00)
[2022-08-17] MEDS: SODIUM CHLORIDE FLUSH 0.9% 10 ML SYRINGE IVP SCH ×4 (00:09→21:28)
[2022-08-17] MEDS: BUDESONIDE 0.5 MG/2 ML NEB INH SCH ×3 (04:37→21:40)
[2022-08-17] MEDS: IPRATROPIUM/ALBUTEROL 3 ML NEB INH SCH ×2 (04:37→07:16)
[2022-08-17 05:44] LABS: ABG OXYGEN SATURATION 99 % (94-98); ABG PCO2 59 mmHg (34-45); ABG PH 7.38 (7.35-7.45); ABG PO2 138 mmHg (80-100); ABG TCO2 35.8 MMOL/L (21.0-29.0); ALLEN TEST POSITIVE
[2022-08-17] MEDS: GABAPENTIN 100 MG CAPSULE PO SCH ×3 (05:51→21:27)
[2022-08-17 06:07] LABS: HCT - HEMATOCRIT 39.1 % (37.0-47.0); HGB - HEMOGLOBIN 11.9 g/dL (12.0-16.0); MEAN CORPUSCULAR HGB CONC 30.4 g/dL (32.0-36.0); MEAN PLATELET VOLUME 9.3 fL (7.9-10.8); RED BLOOD COUNT 4.25 10^6/uL (4.20-5.40); RED CELL DISTRIBUTION WIDTH 13.3 % (12.0-15.0); WHITE BLOOD COUNT 16.6 x10^3/uL (4.8-10.8)
[2022-08-17 06:19] LABS: ALBUMIN 2.4 g/dL (3.2-5.5); ALBUMIN/GLOBULIN RATIO 0.7 (1.0-2.2); BILIRUBIN,TOTAL 0.4 mg/dL (0.2-1.0); CREATININE 0.7 mg/dL (0.4-1.0); POTASSIUM 4.1 mmol/L (3.5-5.0)
[2022-08-17] MEDS: POTASSIUM CHLORIDE 10 MEQ CAPSULE PO SCH (08:01)
[2022-08-17] MEDS: ENOXAPARIN 40 MG/0.4 ML SYRINGE SUBQ SCH (08:01)
[2022-08-17] MEDS: MULTIVITAMIN W/MINERALS TABLET PO SCH (08:01)
[2022-08-17] MEDS: ASPIRIN CHEW 81 MG TABLET PO SCH (08:01)
[2022-08-17] MEDS: OMEGA-3 ACID ETHYL ESTERS 1 GM CAPSULE PO SCH ×2 (08:01→17:07)
[2022-08-17] MEDS: diltiaZEM CD 240 MG CAPSULE PO SCH (08:01)
[2022-08-17] MEDS: TAMSULOSIN 0.4 MG CAPSULE PO SCH (08:02)
--- NOTE | 2022-08-17 08:12 | PROVIDER PROGRESS NOTE ---
Assessment/Plan - Problem List (1) Acute and chronic respiratory failure with hypoxia Assessment/Plan: Patient had several hypoxic events overnight. She had been on 4 L/min and was only saturating 84%. She needed her supplemental O2 increased temporarily to an Oxymask as high as 8 L/min. By this morning the O2 is down to 4L/min via Oxymask Labs were all reviewed. ABG was done this morning and shows pH 7.38, PCO2 59, PO2 138 on FiO2 6L/min This morning she has wheezes which she has not had the entire admission Plan: Obtain chest x-ray, will cycle troponins, check BNP Continue with supplemental O2 and I will order her to be on oxy mask when she is asleep because she is a mouth breather (2) HCAP (healthcare-associated pneumonia) Assessment/Plan: Her CXR done today was reviewed, it shows a new RUL pneumonia Plan: Will obtain blood cx and sputum cx Will start her on empiric antibx to cover a Healthcare-associated pneumonia: using IV vancomycin, and IV Cefepime (choice of antibx discussed with pharmacist Contreras). We will start Florastor (3) COPD exacerbation Assessment/Plan: This new pneumonia has caused her to wheeze. She now has a COPD exacerbation Plan: We will start Xopenex nebulized bronchodilators We will start Mucinex (4) Atrial flutter with rapid ventricular response Assessment/Plan: The patient went into new A-fib last night but spontaneously converted back to sinus rhythm. Then this morning at approximately 07 100 she was tachycardic again and this is atrial flutter with RVR. On 08/14/2022 she had short runs of PSVT, at rates of 115. She just had an Ec hocardiogram done 08/15 which shows normal LV size and function and normal RV size and function EKG was done today and confirms atrial flutter, ventr rate is 140 Plan: Oral Cardizem daily dose was given early for rate control If needed, I would transfer her to the ICU for diltiazem drip We will order a BNP and cycle troponins to rule out [place] (5) Orthostatic hypotension Assessment/Plan: Patient had criteria for orthostasis when checked: On 08/14 vital signs showed a supine syst BP of 111, when she stood syst BP dropped to 103, Heart rate supine was 97, it lucia to 137 with standing. On 08/15, heart rate supine was 80, heart rate lucia to 101 with standing. I suspect this is the cause of her feeling weakness and the fall at home and the pre-renal azotemia seen on labs several days ago (All labs were reviewed). Her Echocardiogram was done 08/15 and this showed normal LV and RV contractility, and mild pulm HTN w/ PA pressure of 47 mmHg. I decreased her Lasix dose from 60 mg daily to 20 mg daily and gave 1L of iv fluids. Today 08/16, her syst BP sitting is 137 and standing BP dropped to 115. Plan: Will order another 1L of iv hydration and will stop Lasix Follow orthostatic VS daily (6) Generalized weakness Assessment/Plan: The brain MRI showed only diffuse changes of atrophy, no evidence of old stroke or recent stroke. The patient does carry a diagnosis of polio, which may have given L>R leg weakness. Today, when PT and OT came to work with her, she was asleep, mouth breathing, on n.c. O2. Her O2 sat was 83% at that point. Therapist put her on her oxymask. She statwed she was too tired to participate with rehab today. Plan: I will order for patient to be put on suppl O2 via oxy mask whenever she is asl eep or napping PT and OT to keep working with her and are recommending SNF for rehab (7) Fall at home Impression: Patient has a bruised and mildly swollen left upper eyelid. That was the fall from several days ago. Following that she rolled out of bed 2 days later, landing on her left side she thinks. She complained of L sided pain s/p GLF and neck pain s/p GLF, in the ED. H/o recent L hip fracture s/p ORIF Her CSpine CT showed : DJD C1-C2, C5-C6, C6-C7 Her orthostatic vital signs reveal volume depletion I restart Gabapentin at a lower dose of 100 mg TID not 300 mg TID She received 2 days of IV fluids, approximately 2 L positive in fluid balance. Chest x-ray today 08/17/2022 shows mild blunting of her costophrenic angles Plan: IV fluids stopped. BNP ordered. Oral Lasix will be resumed tomorrow. Remain on lower gabapentin dose PT and OT rehab to cont (8) Severe protein calorie malnutrition The patient's BMI is only 17. She screened for excessive weight loss, done by our Call Center Receptionist: Has significant muscle wasting and loss of subcutaneous fat, nutritional intake of less than 50% for 2 weeks or more, and has lost 12% of her weight in 6 months. Her labs showed a LDL of 48 and an HDL of 18, and she was on a statin. I ordered a more liberalized diet with Call Center Receptionist to take her meal choices I stopped her statin and will plan discharge off the statin I started her on omega-3 tablet daily to increase her HDL Plan: Will request Call Center Receptionist for further recommendations since she is only eating fruit, possibly Remeron. Discussed with Yin Garcia today. - Current Meds Current Meds: Current Medications Generic Name Dose Route Start Last Admin Trade Name Freq PRN Reason Stop Dose Admin Albuterol/Ipratropium 3 ml 08/13/22 20:46 08/15/22 07:03 Ipratropium/Albuterol 3 Ml Neb INH 3 ml Q4HR PRN Administration Wheezing Albuterol/Ipratropium 3 ml 08/15/22 11:00 08/17/22 07:16 Ipratropium/Albuterol 3 Ml Neb INH 3 ml RTQID HENOK Administration Aspirin 81 mg 08/14/22 09:00 08/17/22 08:01 Aspirin Chew 81 Mg Tablet PO 81 mg DAILY HENOK Administration Budesonide 0.5 mg 08/14/22 07:00 08/17/22 07:16 Budesonide 0.5 Mg/2 Ml Neb INH 0.5 mg RTBID HENOK Administration Diltiazem HCl 240 mg 08/14/22 09:00 08/17/22 08:01 Diltiazem Cd 240 Mg Capsule PO 240 mg DAILY HENOK Administration Enoxaparin Sodium 40 mg 08/14/22 09:00 08/17/22 08:01 Enoxaparin 40 Mg/0.4 Ml Syringe SUBQ 40 mg DAILY HENOK Administration Gabapentin 100 mg 08/15/22 22:00 08/17/22 05:51 Gabapentin 100 Mg Capsule PO 100 mg TID HENOK Administration Sodium Chloride 1,000 mls @ 83.333 mls/hr 08/16/22 19:00 08/17/22 08:03 Normal Saline 0.9% IV 0 mls/hr .Q12H HENOK Infusion Multivitamins/Minerals 1 tab 08/15/22 17:00 08/17/22 08:01 Multivitamin W/Minerals Tablet PO 1 tab DAILYWM HENOK Administration [place]-5-Akzl Ethyl Esters 1 gm 08/15/22 12:00 08/17/22 08:01 [place]-3 Acid Ethyl Esters 1 Gm Capsule PO 1 gm BIDWM HENOK Administration Potassium Chloride 10 meq 08/14/22 08:00 08/17/22 08:01 Potassium Chloride 10 Meq Capsule PO 10 meq DAILYWM HENOK Administration Sodium Chloride 10 ml 08/14/22 01:00 08/17/22 08:02 Sodium Chloride Flush 0.9% 10 Ml Syringe IVP Not Given 0100,0900,1700 HENOK Tamsulosin HCl 0.4 mg 08/15/22 09:00 08/17/22 08:02 Tamsulosin 0.4 Mg Capsule PO 0.4 mg DAILY HENOK Administration - Lab Result Fish Bone Diagrams: 08/17/22 05:34 08/17/22 05:34 - EKG Results EKG Interpreted Independently: Yes EKG Comparison: Changed from prior EKG EKG Findings: Atrial flutter with 2:1 block, ventricular rate 140, left IVCD. Since EKG from 07/20/2022, rapid atrial flutter is new. - Diagnostic Imaging Results Diagnostic Imaging Results: Final report reviewed - Additional Planning My Orders: My Active Orders 08/16/22 19:00 Sodium Chloride 0.9% [Normal Saline 0.9%] 1,000 ml IV 83.333 mls/hr 08/17/22 07:51 Chest 1 View X-Ray [XR] Stat Subjective - Subjective Patient Reports: Other (Physical exam done in the early afternoon and she is asleep, wearing an oxy mask supplemental O2, is not in respiratory distress) Objective Vital Signs: Vital Signs - 24 hr 08/16/22 08/16/22 08/16/22 09:00 12:05 13:00 Temperature 36.7 C Heart Rate 88 Heart Rate [ 88 Brachial] Heart Rate [ Monitoring electrodes] Heart Rate [ Radial] Respiratory 18 18 18 Rate Blood Pressure [Left Brachial artery] Blood Pressure [Right Brachial artery] O2 Saturation 92 94 If not protocol 2 3 2 : Oxygen Flow, liters/minute 08/16/22 08/16/22 08/16/22 13:26 16:00 20:47 Temperature 36.7 C 36.9 C 37.2 C Heart Rate Heart Rate [ 101 H 73 103 H Brachial] Heart Rate [ Monitoring electrodes] Heart Rate [ Radial] Respiratory 20 20 24 Rate Blood Pressure [Left Brachial artery] Blood Pressure 122/47 L 121/47 L 145/66 H [Right Brachial artery] O2 Saturation 95 95 92 If not protocol 2 2 2 : Oxygen Flow, liters/minute 08/16/22 08/16/22 08/17/22 22:31 23:30 00:27 Temperature Heart Rate Heart Rate [ Brachial] Heart Rate [ Monitoring electrodes] Heart Rate [ Radial] Respiratory Rate Blood Pressure [Left Brachial artery] Blood Pressure [Right Brachial artery] O2 Saturation 89 L 84 L If not protocol 4 8 5 : Oxygen Flow, liters/minute 08/17/22 08/17/22 08/17/22 00:30 02:02 05:04 Temperature 36.2 C L 37.5 C Heart Rate Heart Rate [ Brachial] Heart Rate [ 120 H Monitoring electrodes] Heart Rate [ Radial] Respiratory 19 24 Rate Blood Pressure 124/60 [Left Brachial artery] Blood Pressure 142/66 H [Right Brachial artery] O2 Saturation 95 98 97 If not protocol 8 8 8 : Oxygen Flow, liters/minute 08/17/22 08/17/22 06:01 07:18 Temperature Heart Rate 112 H Heart Rate [ Brachial] Heart Rate [ Monitoring electrodes] Heart Rate [ 111 H Radial] Respiratory 24 26 H Rate Blood Pressure [Left Brachial artery] Blood Pressure [Right Brachial artery] O2 Saturation 95 If not protocol 4 6 : Oxygen Flow, liters/minute Oxygen O2 Source Oxymask I&O (Last 24 Hrs): Intake and Output Totals x24h 08/15/22 08/16/22 08/17/22 23:59 23:59 23:59 Intake Total 1252 3080 1072.218 Output Total 250 1050 200 Balance 1002 2030 872.218 General: Other (Lethargic) HEENT: Mucous membr. moist/pink, Other (Wearing oxy mask, is mouth breather) Neck: Supple, No JVD Neuro: Other (Lethargic) Cardiovascular: Regular rate, No murmurs Respiratory: No respiratory distress (Wearing O2 via OxyMask), [place] (Right midlung field) Abdomen: Soft, No tenderness Extremities: No clubbing, No edema - Results Results: Laboratory Results WBC 16.6 x10^3/uL (4.8-10.8) H 08/17/22 05:34 RBC 4.25 10^6/uL (4.20-5.40) 08/17/22 05:34 Hgb 11.9 g/dL (12.0-16.0) L 08/17/22 05:34 Hct 39.1 % (37.0-47.0) 08/17/22 05:34 MCV 92.0 fL (81.0-99.0) 08/17/22 05:34 MCH 28.0 pg (27.0-31.0) 08/17/22 05:34 MCHC 30.4 g/dL (32.0-36.0) L 08/17/22 05:34 RDW 13.3 % (12.0-15.0) 08/17/22 05:34 Plt Count 533 10^3/uL (130-450) H 08/17/22 05:34 MPV 9.3 fL (7.9-10.8) 08/17/22 05:34 Neut # (Auto) 7.4 10^3/uL (1.5-6.6) H 08/14/22 05:04 Lymph # (Auto) 1.2 10^3/uL (1.5-3.5) L 08/14/22 05:04 [place] # (Auto) 1.0 10^3/uL (0.0-1.0) 08/14/22 05:04 Eos # (Auto) 0.1 10^3/uL (0.0-0.7) 08/14/22 05:04 Baso # (Auto) 0.0 10^3/uL (0.0-0.1) 08/14/22 05:04 Absolute Nucleated RBC 0.00 x10^3/uL 08/14/22 05:04 Nucleated RBC % 0.0 /100WBC 08/14/22 05:04 Manual Slide Review Indicated 08/13/22 16:15 Platelet Estimate NORMAL (130-450,000) (NORMAL) 08/13/22 16:15 Platelet Morphology NORMAL APPEARANCE (NORMAL) 08/13/22 16:15 RBC Morph Micro Appear 1+ HYPOCHROMASIA (NORMAL) 08/13/22 16:15 Bld Gas Analysis Time 0543 08/17/22 05:40 Sample Site RIGHT RADIAL 08/17/22 05:40 ABG pH 7.38 (7.35-7.45) 08/17/22 05:40 ABG pCO2 59 mmHg (34-45) H 08/17/22 05:40 ABG pO2 138 mmHg (80-100) H 08/17/22 05:40 ABG HCO3 34.0 mmol/L (22.0-26.0) H 08/17/22 05:40 ABG Total CO2 35.8 MMOL/L (21.0-29.0) H 08/17/22 05:40 ABG O2 Saturation 99 % (94-98) H 08/17/22 05:40 ABG Base Excess 7.0 mmol/L (-2.0-3.0) H 08/17/22 05:40 [place] Test POSITIVE 08/17/22 05:40 O2 Delivery Device OXYMASK 08/17/22 05:40 O2 Liters/Min 6.00 LPM 08/17/22 05:40 FiO2 44.00 08/17/22 05:40 Sodium 136 mmol/L (135-145) 08/17/22 05:34 Potassium 4.1 mmol/L (3.5-5.0) 08/17/22 05:34 Chloride 98 mmol/L (101-111) L 08/17/22 05:34 Carbon Dioxide 33 mmol/L (21-32) H 08/17/22 05:34 Anion Gap 5.0 (6-13) L 08/17/22 05:34 BUN 11 mg/dL (6-20) 08/17/22 05:34 Creatinine 0.7 mg/dL (0.4-1.0) 08/17/22 05:34 Estimated GFR (MDRD) 80 (>89) L 08/17/22 05:34 Glucose 141 mg/dL (70-100) H 08/17/22 05:34 Calcium 8.0 mg/dL (8.5-10.3) L 08/17/22 05:34 Magnesium 2.0 mg/dL (1.7-2.8) 08/15/22 05:35 Total Bilirubin 0.4 mg/dL (0.2-1.0) 08/17/22 05:34 AST 13 IU/L (10-42) 08/17/22 05:34 ALT 15 IU/L (10-60) 08/17/22 05:34 Alkaline Phosphatase 71 IU/L (42-121) 08/17/22 05:34 Total Creatine Kinase 16 IU/L (22-269) L 08/13/22 16:15 Troponin I High Sens 9.3 ng/L (2.3-14.8) 08/15/22 05:35 Total Protein 6.0 g/dL (6.7-8.2) L 08/17/22 05:34 Albumin 2.4 g/dL (3.2-5.5) L 08/17/22 05:34 Globulin 3.6 g/dL (2.1-4.2) 08/17/22 05:34 Albumin/Globulin Ratio 0.7 (1.0-2.2) L 08/17/22 05:34 Triglycerides 68 mg/dL (-149) 08/14/22 05:04 Cholesterol 60 mg/dL (-199) 08/14/22 05:04 LDL Cholesterol, Calc 28 mg/dL (-129) 08/14/22 05:04 VLDL Cholesterol 14 mg/dL 08/14/22 05:04 HDL Cholesterol 18 mg/dL (60-) L 08/14/22 05:04 LDL/HDL Ratio 1.6 (<4.4) 08/14/22 05:04 Cholesterol/HDL Ratio 3.3 (<4.4) 08/14/22 05:04 Urine Color YELLOW 08/13/22 17:52 Urine Clarity CLEAR (CLEAR) 08/13/22 17:52 Urine pH 5.0 PH (5.0-7.5) 08/13/22 17:52 Ur Specific [place] 1.015 (1.002-1.030) 08/13/22 17:52 Urine Protein NEGATIVE mg/dL (NEGATIVE) 08/13/22 17:52 Urine Glucose (UA) NEGATIVE mg/dL (NEGATIVE) 08/13/22 17:52 Urine Ketones NEGATIVE mg/dL (NEGATIVE) 08/13/22 17:52 Urine Occult Blood NEGATIVE (NEGATIVE) 08/13/22 17:52 Urine Nitrite NEGATIVE (NEGATIVE) 08/13/22 17:52 Urine Bilirubin NEGATIVE (NEGATIVE) 08/13/22 17:52 Urine Urobilinogen 0.2 (NORMAL) E.U./dL (NORMAL) 08/13/22 17:52 Ur Leukocyte Esterase NEGATIVE (NEGATIVE) 08/13/22 17:52 Ur Microscopic Review NOT INDICATED 08/13/22 17:52 Urine Culture Comments NOT INDICATED 08/13/22 17:52 - Procedures Procedures: Procedures EXCISION OF CECUM, ENDO (03/24/19) EXCISION OF SIGMOID COLON, ENDO (03/24/19) EXCISION OF TRANSVERSE COLON, ENDO (03/24/19)
[2022-08-17] MEDS ORDERED: LEVALBUTEROL 1.25 MG/3 ML NEB INH PRN (08:17)
--- NOTE | 2022-08-17 08:26 | XRAY Report ---
PROCEDURE: Chest 1 View X-Ray INDICATIONS: Hx COPD, has cough and worse hypoxia TECHNIQUE: One view of the chest was acquired. COMPARISON: None. FINDINGS: Surgical changes and devices: None. Lungs and pleura: Airspace opacity in right upper lung field is seen suggestive of right upper lobe infiltrate trace amount of left pleural effusion is likely present with blunting of left costophrenic angle. No pneumothorax. Mediastinum: Mediastinal contours appear normal. Heart size is normal. Bones and chest wall: No suspicious bony lesions. Overlying soft tissues appear unremarkable. IMPRESSION: Finding is suggestive of small to moderate right upper lobe infiltrate. Trace left pleural effusion. No pneumothorax. Reviewed by: Dante Olmstead MD on 08/17/2022 8:25 AM PDT Approved by: Dante Olmstead MD on 08/17/2022 8:25 AM PDT Station ID: [id number]
[2022-08-17] MEDS ORDERED: VANCOMYCIN INJ 1 GM in SODIUM CHLORIDE 0.9% 250 ML IV ONE (10:00)
[2022-08-17] MEDS: LEVALBUTEROL 1.25 MG/3 ML NEB INH SCH ×3 (10:59→21:40)
--- NOTE | 2022-08-17 11:50 | PHARMACY PROGRESS NOTE ---
- Therapy Status Therapy status: Awaiting steady state Basis for treatment: Empirical Treatment indication: HAP Trough goal: AUC 400-600 Concurrent antibiotics: Cefepime 2 gm q12h - Monitoring and Recommendation Clinical response to treatment: I&O Previous 24 hours 08/15/22 08/16/22 08/17/22 23:59 23:59 23:59 Intake Total 1252 3080 1072.218 Output Total 250 1050 300 Balance 1002 2030 772.218 Lab Results 08/17/22 08/15/22 08/14/22 05:34 05:35 05:04 BUN 11 15 21 H Creatinine 0.7 0.6 0.5 Estimated GFR (MDRD) 80 L 96 118 08/13/22 16:15 BUN 26 H Creatinine 0.6 Estimated GFR (MDRD) 96 Monitoring plan: Daily serum creatinine Areas for additional monitoring: Therapy de-escalation based on culture results Pharmacy recommendation: Continue current regime (Vancomycin 1 gm IV q24 h for estimated AUC/ZOFIA of 516 mcg*hr/mL)
[2022-08-17] MEDS: guaiFENesin 600 MG TABLET PO SCH ×2 (13:05→21:27)
[2022-08-17] MEDS: CEFEPIME 2 GM in SODIUM CHLORIDE 0.9% MINIBAG 100 ML IV SCH ×2 (13:14→22:41)
[2022-08-17] MEDS: oxyCODONE 5 MG TABLET PO SCH ×2 (13:51→21:37)
[2022-08-17] MEDS: SACCHAROMYCES BOULARDII 250 MG CAPSULE PO SCH (17:07)
[2022-08-18] MEDS: GABAPENTIN 100 MG CAPSULE PO SCH ×3 (05:17→21:32)
[2022-08-18 05:51] LABS: BASOPHILS # (AUTO) 0.1 10^3/uL (0.0-0.1); BASOPHILS % (AUTO) 0.3 %; EOSINOPHILS # (AUTO) 0.1 10^3/uL (0.0-0.7); EOSINOPHILS % (AUTO) 0.3 %; HCT - HEMATOCRIT 36.9 % (37.0-47.0); HGB - HEMOGLOBIN 10.8 g/dL (12.0-16.0); LYMPHOCYTES % (AUTO) 7.3 %; MEAN CORPUSCULAR HEMOGLOBIN 27.8 pg (27.0-31.0); MEAN CORPUSCULAR HGB CONC 29.3 g/dL (32.0-36.0); MEAN CORPUSCULAR VOLUME 94.9 fL (81.0-99.0); MEAN PLATELET VOLUME 9.4 fL (7.9-10.8); MONOCYTES # (AUTO) 1.8 10^3/uL (0.0-1.0); MONOCYTES % (AUTO) 6.5 %; NEUTROPHILS # (AUTO) 23.4 10^3/uL (1.5-6.6); NEUTROPHILS % (AUTO) 84.4 %; PLT - PLATELET COUNT 477 10^3/uL (130-450); RED BLOOD COUNT 3.89 10^6/uL (4.20-5.40); RED CELL DISTRIBUTION WIDTH 13.3 % (12.0-15.0); WHITE BLOOD COUNT 27.7 x10^3/uL (4.8-10.8)
[2022-08-18 06:00] LABS: CALCIUM 7.9 mg/dL (8.5-10.3); CREATININE 0.7 mg/dL (0.4-1.0); POTASSIUM 4.3 mmol/L (3.5-5.0)
[2022-08-18 06:08] LABS: DIFFERENTIAL COMMENT MANUAL=AUTO DIFF; PLATELET ESTIMATE, MANUAL INCREASED (>450,000) (NORMAL); PLATELET MORPHOLOGY NORMAL APPEARANCE (NORMAL); RBC MORPHOLOGY (MULTIPLE) NORMAL APPEARANCE (NORMAL); WBC MORPHOLOGY (MULTIPLE) NORMAL APPEARANCE (NORMAL)
[2022-08-18] MEDS: BUDESONIDE 0.5 MG/2 ML NEB INH SCH ×2 (07:12→20:50)
[2022-08-18] MEDS: LEVALBUTEROL 1.25 MG/3 ML NEB INH SCH ×4 (07:13→20:50)
[2022-08-18] MEDS: MULTIVITAMIN W/MINERALS TABLET PO SCH (08:20)
[2022-08-18] MEDS: OMEGA-3 ACID ETHYL ESTERS 1 GM CAPSULE PO SCH ×2 (08:20→17:31)
[2022-08-18] MEDS: SACCHAROMYCES BOULARDII 250 MG CAPSULE PO SCH ×2 (08:21→17:31)
[2022-08-18] MEDS: ENOXAPARIN 40 MG/0.4 ML SYRINGE SUBQ SCH (08:21)
[2022-08-18] MEDS: ASPIRIN CHEW 81 MG TABLET PO SCH (08:21)
[2022-08-18] MEDS: POTASSIUM CHLORIDE 10 MEQ CAPSULE PO SCH (08:21)
[2022-08-18] MEDS: guaiFENesin 600 MG TABLET PO SCH ×2 (08:21→21:28)
[2022-08-18] MEDS: SODIUM CHLORIDE FLUSH 0.9% 10 ML SYRINGE IVP SCH ×3 (08:21→21:29)
[2022-08-18] MEDS: TAMSULOSIN 0.4 MG CAPSULE PO SCH (08:21)
[2022-08-18] MEDS: oxyCODONE 5 MG TABLET PO SCH ×2 (08:28→22:31)
[2022-08-18] MEDS: diltiaZEM CD 240 MG CAPSULE PO SCH (08:28)
[2022-08-18] MEDS: VANCOMYCIN INJ 1 GM in SODIUM CHLORIDE 0.9% 250 ML IV SCH (11:04)
[2022-08-18] MEDS: CEFEPIME 2 GM in SODIUM CHLORIDE 0.9% MINIBAG 100 ML IV SCH ×2 (14:23→22:30)
--- NOTE | 2022-08-18 15:32 | PROVIDER PROGRESS NOTE ---
Assessment/Plan - Problem List (1) Acute and chronic respiratory failure with hypoxia Assessment/Plan: Patient was more hypoxic 2 days ago and was only saturating 84%. She needed her supplemental O2 increased temporarily to an Oxymask as high as 8 L/min, the was able to titrate O2 down to 4L/min via Oxymask Yesterday the work-up showed that she has a new pneumonia and antibx were started after cx obtained. She was in new atrial flutter with RVR yesterday All labs were reviewed. Troponins went from 7 to 20. BNP is mildly elevated 208>> 246 today. I ordered her to be on oxy mask when she is asleep because she is a mouth breather Plan: Continue with empiric IV antibiotics Await culture results Continue supplemental O2, target saturation is > 88% (2) HCAP (healthcare-associated pneumonia) Assessment/Plan: Her CXR on 08/17 showed a new RUL pneumonia We obtained blood cx and sputum cx All labs were reviewed. Today her white count has risen from 16.6 up to 27.7 w/ a L shift Plan: Cont empiric antibx to cover a Healthcare-associated pneumonia: using IV vanco mycin, and IV Cefepime. Start Florastor Follow WBC (3) COPD exacerbation Assessment/Plan: This new pneumonia has caused her to wheeze. She now has a COPD exacerbation. It has not been so severe that I needed to order steroids Plan: Cont Xopenex nebulized bronchodilators Cont Mucinex (4) Acute urinary retention Assessment/Plan: Overnight last night the patient had minimal urine output and a straight cath was ordered by the telemedicine doctor. He she had about 5610 mL. Today she has had no urine output and bladder scan shows 409 mL of urinary retention Plan: We will again order straight cath (5) Atrial flutter with rapid ventricular response Assessment/Plan: The patient went into new A-fib spontaneously converted back to sinus rhythm, then went into atrial flutter with RVR. Yesterday after the morning Cardizem dose, this converted to NSR. She is now having Paroxysms of atrial flutter with 2-1 and 3-1 block. All labs were reviewed. Troponins yesterday went from 7 to 20, likely rate- related demand ischemia. Her BNP is mildly elevated 208>> 246 today. On 08/14/2022 she was already having short runs of PSVT, at rates of 115. She just had an Echocardiogram done 08/15 which showed normal LV size and function and normal RV size and function Plan: Cont Cardizem daily dose for rate control Her [id number] score is 1, so Aspirin daily, not anticoagulantis indcated (6) Generalized weakness Assessment/Plan: The brain MRI showed only diffuse changes of atrophy, no evidence of old stroke or recent stroke. The patient does carry a diagnosis of polio, which may have given L>R leg weakness. On 08/17 when PT and OT came to work with her, she was asleep, mouth breathing, on n.c. O2. Her O2 sat was 83% at that point. Therapist put her on her oxymask. She statwed she was too tired to participate with rehab today. I ordered for patient to be put on suppl O2 via oxy mask whenever she is asleep or napping Today I updated the daughter and a family friend in the room, regarding her new pneumonia and her overall weakness. The daughter confirmed that the mother has a very poor appetite and mostly eats cottage cheese and peaches, she also likes asparagus and chocolate pudding. The daughter herself felt that the patient is doing worse since adm, and today requested that I get a Neurology consult. I called and spoke to the Neurologist on-call, and reviewed the entire case, including the 2 falls at home. This Neurologist said that I had done due diligence for this patient, and had no new recommendations. Plan: PT and OT to keep working with her and are recommending SNF for rehab (7) Fall at home Impression: Patient has a very bruised and mildly swollen left upper eyelid. That was the fall from several days ago. Following that she rolled out of bed 2 days later, landing on her left side she thinks. She complained of L sided pain s/p GLF and neck pain s/p GLF, in the ED. H/o recent L hip fracture s/p ORIF Her CSpine CT showed : DJD C1-C2, C5-C6, C6-C7 Her orthostatic vital signs reveal volume depletion, when checked the past several days. She received iv fluids for 2 days I restart Gabapentin at a lower dose of 100 mg TID not 300 mg TID She received 2 days of IV fluids, approximately 2 L positive in fluid balance. Chest x-ray today 08/17/2022 shows mild blunting of her costophrenic angles Plan: Since the patient had recent orthostasis, I will not yet restarted her Lasix. Her IV fluids were stopped when BNP was noted to be elevated but since she is taking in poor oral hydration and nutrition, we may consider gentle D5W Remain on lower gabapentin dose PT and OT rehab to continue (8) Severe protein calorie malnutrition The patient's BMI is only 17. She screened for excessive weight loss, done by our Procedure Manager: Has significant muscle wasting and loss of subcutaneous fat, nutritional intake of less than 50% for 2 weeks or more, and has lost 12% of her weight in 6 months. Her labs showed a LDL of 48 and an HDL of 18, and she was on a statin. I ordered a more liberalized diet with Procedure Manager to take her meal choices I stopped her statin and will plan discharge off the statin. I started her on omega-3 tablet daily to increase her HDL Today I spoke to the daughter who was visiting, in her room, who confirmed that the mother has a very poor appetite and mostly eats cottage cheese and peaches, she also likes asparagus and chocolate pudding. Plan: I have requested Procedure Manager for further recommendations since she is only eating fruit, possibly Remeron. Discussed with Yin Garcia again today. - Current Meds Current Meds: Current Medications Generic Name Dose Route Start Last Admin Trade Name Sugey PRN Reason Stop Dose Admin Aspirin 81 mg 08/14/22 09:00 08/18/22 08:21 Aspirin Chew 81 Mg Tablet PO 81 mg DAILY HENOK Administration Budesonide 0.5 mg 08/14/22 07:00 08/18/22 07:12 Budesonide 0.5 Mg/2 Ml Neb INH 0.5 mg RTBID HENOK Administration Diltiazem HCl 240 mg 08/14/22 09:00 08/18/22 08:28 Diltiazem Cd 240 Mg Capsule PO 240 mg DAILY HENOK Administration Enoxaparin Sodium 40 mg 08/14/22 09:00 08/18/22 08:21 Enoxaparin 40 Mg/0.4 Ml Syringe SUBQ 40 mg DAILY HENOK Administration Gabapentin 100 mg 08/15/22 22:00 08/18/22 15:03 Gabapentin 100 Mg Capsule PO 100 mg TID HENOK Administration Guaifenesin 600 mg 08/17/22 10:00 08/18/22 08:21 Guaifenesin 600 Mg Tablet PO 600 mg BID HENOK Administration Cefepime HCl 2 gm/ Sodium 100 mls @ 200 mls/hr 08/17/22 11:00 08/18/22 15:05 Chloride IV Infused Q12H HENOK Infusion Vancomycin HCl 1 gm/ Sodium 250 mls @ 167 mls/hr 08/18/22 10:00 08/18/22 14:15 Chloride IV Infused Q24H HENOK Infusion Levalbuterol HCl 1.25 mg 08/17/22 14:59 08/18/22 15:26 Levalbuterol 1.25 Mg/3 Ml Neb INH 1.25 mg RTQID HENOK Administration Multivitamins/Minerals 1 tab 08/15/22 17:00 08/18/22 08:20 Multivitamin W/Minerals Tablet PO 1 tab DAILYWM HENOK Administration [id number] Ethyl Esters 1 gm 08/15/22 12:00 08/18/22 08:20 Broussard-3 Acid Ethyl Esters 1 Gm Capsule PO 1 gm BIDWM HENOK Administration Oxycodone HCl 5 mg 08/17/22 09:00 08/18/22 08:28 Oxycodone 5 Mg Tablet PO Not Given BID [facility] Potassium Chloride 10 meq 08/14/22 08:00 08/18/22 08:21 Potassium Chloride 10 Meq Capsule PO 10 meq DAILYWM HENOK Administration Saccharomyces Boulardii 250 mg 08/17/22 17:00 08/18/22 08:21 Saccharomyces Boulardii 250 Mg Capsule PO 250 mg BIDWM HENOK Administration Sodium Chloride 10 ml 08/14/22 01:00 08/18/22 08:21 Sodium Chloride Flush 0.9% 10 Ml Syringe IVP 10 ml 0100,0900,1700 HENOK Administration Tamsulosin HCl 0.4 mg 08/15/22 09:00 08/18/22 08:21 Tamsulosin 0.4 Mg Capsule PO 0.4 mg DAILY HENOK Administration - Lab Result Fish Bone Diagrams: 08/18/22 05:19 08/18/22 05:19 - Additional Planning My Orders: My Active Orders 08/17/22 14:59 Levalbuterol [Xopenex] 1.25 mg INH RTQID 08/17/22 17:00 Saccharomyces Boulardii [Florastor] 250 mg PO BIDWM 08/18/22 10:00 Vancomycin Inj [Vancomycin] 1 gm Sodium Chloride 0.9% [Normal Saline 0.9%] 250 ml IV Q24H 08/19/22 05:00 BMP - BASIC METABOLIC PANEL [CHEM] DAILYLAB CBC - COMP BLD CT W/AUTO DIFF [HEME] DAILYLAB Objective Vital Signs: Vital Signs - 24 hr 08/17/22 08/17/22 08/17/22 16:02 21:00 21:40 Temperature 37.5 C 37.5 C Heart Rate 96 Heart Rate [ Brachial] Heart Rate [ 100 100 Monitoring electrodes] Respiratory 26 H 26 H 20 Rate Blood Pressure 115/45 L 121/53 L [Left Brachial artery] Blood Pressure [Right Brachial artery] O2 Saturation 94 96 If not protocol 3 3 3 : Oxygen Flow, liters/minute 08/17/22 08/18/22 08/18/22 23:39 05:19 07:07 Temperature 37.8 C 36.7 C Heart Rate Heart Rate [ 88 Brachial] Heart Rate [ 87 Monitoring electrodes] Respiratory 18 18 94 H Rate Blood Pressure 108/48 L 121/54 L [Left Brachial artery] Blood Pressure [Right Brachial artery] O2 Saturation 98 95 4 L If not protocol 4 3 : Oxygen Flow, liters/minute 08/18/22 08/18/22 08/18/22 07:15 07:59 08:27 Temperature 36.8 C Heart Rate 90 Heart Rate [ 98 Brachial] Heart Rate [ 98 Monitoring electrodes] Respiratory 20 17 18 Rate Blood Pressure 115/52 L 124/55 L [Left Brachial artery] Blood Pressure [Right Brachial artery] O2 Saturation 93 95 If not protocol 3 3 3 : Oxygen Flow, liters/minute 08/18/22 08/18/22 08/18/22 11:27 14:25 15:26 Temperature 37.3 C Heart Rate 96 88 Heart Rate [ Brachial] Heart Rate [ 69 Monitoring electrodes] Respiratory 18 22 18 Rate Blood Pressure [Left Brachial artery] Blood Pressure 109/46 L [Right Brachial artery] O2 Saturation 95 If not protocol 4 3.5 3 : Oxygen Flow, liters/minute Oxygen O2 Source Oxymask I&O (Last 24 Hrs): Intake and Output Totals x24h 08/16/22 08/17/22 08/18/22 23:59 23:59 23:59 Intake Total 3080 2059.218 832.000 Output Total 1050 650 500 Balance 2029 1409.218 332.000 - Results Results: Laboratory Results WBC 27.7 x10^3/uL (4.8-10.8) H 08/18/22 05:19 RBC 3.89 10^6/uL (4.20-5.40) L 08/18/22 05:19 Hgb 10.8 g/dL (12.0-16.0) L 08/18/22 05:19 Hct 36.9 % (37.0-47.0) L 08/18/22 05:19 MCV 94.9 fL (81.0-99.0) 08/18/22 05:19 MCH 27.8 pg (27.0-31.0) 08/18/22 05:19 MCHC 29.3 g/dL (32.0-36.0) L 08/18/22 05:19 RDW 13.3 % (12.0-15.0) 08/18/22 05:19 Plt Count 477 10^3/uL (130-450) H 08/18/22 05:19 MPV 9.4 fL (7.9-10.8) 08/18/22 05:19 Neut # (Auto) 23.4 10^3/uL (1.5-6.6) H 08/18/22 05:19 Lymph # (Auto) 2.0 10^3/uL (1.5-3.5) 08/18/22 05:19 Yell # (Auto) 1.8 10^3/uL (0.0-1.0) H 08/18/22 05:19 Eos # (Auto) 0.1 10^3/uL (0.0-0.7) 08/18/22 05:19 Baso # (Auto) 0.1 10^3/uL (0.0-0.1) 08/18/22 05:19 Absolute Nucleated RBC 0.00 x10^3/uL 08/18/22 05:19 Band Neuts % (Manual) Not Reportable 08/18/22 05:19 Abnorm Lymph % (Manual) Not Reportable 08/18/22 05:19 Nucleated RBC % 0.0 /100WBC 08/18/22 05:19 Neutrophils # (Manual) Not Reportable 08/18/22 05:19 Lymphocytes # (Manual) Not Reportable 08/18/22 05:19 Monocytes # (Manual) Not Reportable 08/18/22 05:19 Eosinophils # (Manual) Not Reportable 08/18/22 05:19 Basophils # (Manual) Not Reportable 08/18/22 05:19 Differential Comment MANUAL=AUTO DIFF 08/18/22 05:19 Manual Slide Review Indicated 08/13/22 16:15 WBC Morphology NORMAL APPEARANCE (NORMAL) 08/18/22 05:19 Platelet Estimate INCREASED (>450,000) (NORMAL) 08/18/22 05:19 Platelet Morphology NORMAL APPEARANCE (NORMAL) 08/18/22 05:19 RBC Morph Micro Appear NORMAL APPEARANCE (NORMAL) 08/18/22 05:19 Bld Gas Analysis Time 0543 08/17/22 05:40 Sample Site RIGHT RADIAL 08/17/22 05:40 ABG pH 7.38 (7.35-7.45) 08/17/22 05:40 ABG pCO2 59 mmHg (34-45) H 08/17/22 05:40 ABG pO2 138 mmHg (80-100) H 08/17/22 05:40 ABG HCO3 34.0 mmol/L (22.0-26.0) H 08/17/22 05:40 ABG Total CO2 35.8 MMOL/L (21.0-29.0) H 08/17/22 05:40 ABG O2 Saturation 99 % (94-98) H 08/17/22 05:40 ABG Base Excess 7.0 mmol/L (-2.0-3.0) H 08/17/22 05:40 Migue Test POSITIVE 08/17/22 05:40 O2 Delivery Device OXYMASK 08/17/22 05:40 O2 Liters/Min 6.00 LPM 08/17/22 05:40 FiO2 44.00 08/17/22 05:40 Sodium 133 mmol/L (135-145) L 08/18/22 05:19 Potassium 4.3 mmol/L (3.5-5.0) 08/18/22 05:19 Chloride 97 mmol/L (101-111) L 08/18/22 05:19 Carbon Dioxide 31 mmol/L (21-32) 08/18/22 05:19 Anion Gap 5.0 (6-13) L 08/18/22 05:19 BUN 18 mg/dL (6-20) 08/18/22 05:19 Creatinine 0.7 mg/dL (0.4-1.0) 08/18/22 05:19 Estimated GFR (MDRD) 80 (>89) L 08/18/22 05:19 Glucose 113 mg/dL (70-100) H 08/18/22 05:19 Calcium 7.9 mg/dL (8.5-10.3) L 08/18/22 05:19 Magnesium 2.0 mg/dL (1.7-2.8) 08/15/22 05:35 Total Bilirubin 0.4 mg/dL (0.2-1.0) 08/17/22 05:34 AST 13 IU/L (10-42) 08/17/22 05:34 ALT 15 IU/L (10-60) 08/17/22 05:34 Alkaline Phosphatase 71 IU/L (42-121) 08/17/22 05:34 Total Creatine Kinase 16 IU/L (22-269) L 08/13/22 16:15 Troponin I High Sens 17.4 ng/L (2.3-14.8) H* 08/17/22 08:42 B-Natriuretic Peptide 246 pg/mL (5-100) H 08/18/22 08:05 Total Protein 6.0 g/dL (6.7-8.2) L 08/17/22 05:34 Albumin 2.4 g/dL (3.2-5.5) L 08/17/22 05:34 Globulin 3.6 g/dL (2.1-4.2) 08/17/22 05:34 Albumin/Globulin Ratio 0.7 (1.0-2.2) L 08/17/22 05:34 Triglycerides 68 mg/dL (-149) 08/14/22 05:04 Cholesterol 60 mg/dL (-199) 08/14/22 05:04 LDL Cholesterol, Calc 28 mg/dL (-129) 08/14/22 05:04 VLDL Cholesterol 14 mg/dL 08/14/22 05:04 HDL Cholesterol 18 mg/dL (60-) L 08/14/22 05:04 LDL/HDL Ratio 1.6 (<4.4) 08/14/22 05:04 Cholesterol/HDL Ratio 3.3 (<4.4) 08/14/22 05:04 Urine Color YELLOW 08/13/22 17:52 Urine Clarity CLEAR (CLEAR) 08/13/22 17:52 Urine pH 5.0 PH (5.0-7.5) 08/13/22 17:52 Ur Specific Isabella 1.015 (1.002-1.030) 08/13/22 17:52 Urine Protein NEGATIVE mg/dL (NEGATIVE) 08/13/22 17:52 Urine Glucose (UA) NEGATIVE mg/dL (NEGATIVE) 08/13/22 17:52 Urine Ketones NEGATIVE mg/dL (NEGATIVE) 08/13/22 17:52 Urine Occult Blood NEGATIVE (NEGATIVE) 08/13/22 17:52 Urine Nitrite NEGATIVE (NEGATIVE) 08/13/22 17:52 Urine Bilirubin NEGATIVE (NEGATIVE) 08/13/22 17:52 Urine Urobilinogen 0.2 (NORMAL) E.U./dL (NORMAL) 08/13/22 17:52 Ur Leukocyte Esterase NEGATIVE (NEGATIVE) 08/13/22 17:52 Ur Microscopic Review NOT INDICATED 08/13/22 17:52 Urine Culture Comments NOT INDICATED 08/13/22 17:52 SARS-CoV-2 (PCR) NOT DETECTED 08/18/22 08:43 - Procedures Procedures: Procedures EXCISION OF CECUM, ENDO (03/24/19) EXCISION OF SIGMOID COLON, ENDO (03/24/19) EXCISION OF TRANSVERSE COLON, ENDO (03/24/19)
[2022-08-19 04:57] LABS: BASOPHILS % (AUTO) 0.3 %; EOSINOPHILS % (AUTO) 0.8 %; HCT - HEMATOCRIT 34.9 % (37.0-47.0); HGB - HEMOGLOBIN 10.2 g/dL (12.0-16.0); MEAN CORPUSCULAR HEMOGLOBIN 27.6 pg (27.0-31.0); MEAN CORPUSCULAR HGB CONC 29.2 g/dL (32.0-36.0); MEAN CORPUSCULAR VOLUME 94.6 fL (81.0-99.0); MEAN PLATELET VOLUME 9.3 fL (7.9-10.8); MONOCYTES % (AUTO) 5.2 %; NEUTROPHILS % (AUTO) 87.6 %; PLT - PLATELET COUNT 450 10^3/uL (130-450); RED BLOOD COUNT 3.69 10^6/uL (4.20-5.40); RED CELL DISTRIBUTION WIDTH 13.3 % (12.0-15.0); WHITE BLOOD COUNT 27.6 x10^3/uL (4.8-10.8)
[2022-08-19 05:08] LABS: ABNORMAL LYMPHS % (MANUAL) 0 %
[2022-08-19 05:09] LABS: CALCIUM 8.3 mg/dL (8.5-10.3); CREATININE 0.6 mg/dL (0.4-1.0)
[2022-08-19 05:19] LABS: BAND NEUTROPHILS % (MANUAL) 6 %; EOSINOPHILS # (MANUAL) 0.3 10^3/uL (0-0.7); LYMPHOCYTES # (MANUAL) 0.6 10^3/uL (1.5-3.5); LYMPHOCYTES % (MANUAL) 2 %; MONOCYTES # (MANUAL) 0.8 10^3/uL (0.0-1.0); NEUTROPHILS # (MANUAL) 25.9 10^3/uL (1.5-6.6)
[2022-08-19 05:20] LABS: DIFFERENTIAL COMMENT MANUAL DIFFERENTIAL; PLATELET ESTIMATE, MANUAL NORMAL (130-450,000) (NORMAL); PLATELET MORPHOLOGY NORMAL APPEARANCE (NORMAL); RBC MORPHOLOGY (MULTIPLE) NORMAL APPEARANCE (NORMAL); WBC MORPHOLOGY (MULTIPLE) NORMAL APPEARANCE (NORMAL)
[2022-08-19] MEDS: GABAPENTIN 100 MG CAPSULE PO SCH ×3 (07:00→22:39)
[2022-08-19] MEDS: BUDESONIDE 0.5 MG/2 ML NEB INH SCH ×2 (07:57→18:22)
[2022-08-19] MEDS: LEVALBUTEROL 1.25 MG/3 ML NEB INH SCH ×5 (07:57→18:22)
[2022-08-19] MEDS: SACCHAROMYCES BOULARDII 250 MG CAPSULE PO SCH ×2 (08:55→16:43)
[2022-08-19] MEDS: ENOXAPARIN 40 MG/0.4 ML SYRINGE SUBQ SCH (08:55)
[2022-08-19] MEDS: OMEGA-3 ACID ETHYL ESTERS 1 GM CAPSULE PO SCH ×2 (08:55→16:42)
[2022-08-19] MEDS: diltiaZEM CD 240 MG CAPSULE PO SCH (08:56)
[2022-08-19] MEDS: oxyCODONE 5 MG TABLET PO SCH ×2 (08:56→20:21)
[2022-08-19] MEDS: TAMSULOSIN 0.4 MG CAPSULE PO SCH (08:56)
[2022-08-19] MEDS: POTASSIUM CHLORIDE 10 MEQ CAPSULE PO SCH (08:56)
[2022-08-19] MEDS: ASPIRIN CHEW 81 MG TABLET PO SCH (08:56)
[2022-08-19] MEDS: guaiFENesin 600 MG TABLET PO SCH ×2 (08:56→20:21)
[2022-08-19] MEDS: SODIUM CHLORIDE FLUSH 0.9% 10 ML SYRINGE IVP SCH ×3 (08:57→22:41)
[2022-08-19] MEDS: MULTIVITAMIN W/MINERALS TABLET PO SCH (08:57)
--- NOTE | 2022-08-19 09:31 | PROVIDER PROGRESS NOTE ---
Assessment/Plan - Problem List (1) Acute and chronic respiratory failure with hypoxia Assessment/Plan: Patient was more hypoxic several days ago and was only saturating 84%. She needed her supplemental O2 increased to an Oxymask as high as 8 L/min, then was able to titrate O2 down to 4L/min via Oxymask and now occiasional n.c. The work-up showed that she has a new pneumonia and antibx were started after cx obtained. She was in new atrial flutter with RVR then too. All labs were reviewed. Troponins went from 7 to 20. I ordered her to be on oxy mask when she is asleep because she is a mouth breather Plan: Continue with empiric IV antibiotics to cover HCAP Await culture results Continue supplemental O2, target saturation is > 88% (2) HCAP (healthcare-associated pneumonia) Assessment/Plan: Her CXR on 08/17 showed a new RUL pneumonia. We obtained blood cx and sputum cx All labs were reviewed. Her white count has risen from 16.6 up to 27.7 w/ a L shift and remains elevated at 27.6 today (without being on steroids, to explain this rise) Plan: Cont empiric antibx to cover a Healthcare-associated pneumonia: using IV vancomycin, and IV Cefepime. Cont Florastor Follow WBC (3) COPD exacerbation Assessment/Plan: This new pneumonia has caused her to wheeze. She now has a COPD exacerbation. As I am talking to her today, I can hear wet phlegm in upper airway, and she only clears her throat, she is too weak to cough it up Plan: Cont Xopenex nebulized bronchodilators Cont Mucinex I will add Montelukast q pm Because of very poor air movement on exam, I will add Solu-Medrol 40 mg tid I would also like to add and will order chest PT TID, for expectoration, if she can tolerate it (4) Acute urinary retention Assessment/Plan: For the last 2 nights the patient has had high residual on bladder scanning, showing urinary retention of 400-600. Straight caths have needed to be ordered about 3 times Plan: Because of her severe shortness of breath even at rest and urinary retention, will order a Paz insertion (5) Atrial flutter with rapid ventricular response Assessment/Plan: The patient went into new A-fib spontaneously converted back to sinus rhythm, then went into atrial flutter with RVR on 08/17, when she was at her worst resp distress. After her morning Cardizem dose, she converted to NSR. She is now having Paroxysms of atrial flutter with 2-1 and 3-1 block for the last 2 days All labs were reviewed. Troponins went from 7 to 20, likely rate-related demand ischemia. Her BNP was mildly elevated 208>> 246 On 08/14/2022 she was already having short runs of PSVT, at rates of 115. She just had an Echocardiogram done 08/15 which showed normal LV size and function and normal RV size and function Plan: Cont Cardizem daily dose for rate control Her [id number] score is 1, so Aspirin daily, not anticoagulant is indcated, and she is on ASA (6) Generalized weakness Assessment/Plan: The brain MRI showed only diffuse changes of atrophy, no evidence of old stroke or recent stroke. The patient does carry a diagnosis of polio, which may have given L>R leg weakness. On 08/17 when PT and OT came to work with her, she was asleep, mouth breathing, on n.c. O2. Her O2 sat was 83% at that point. Therapist put her on her oxymask. She statwed she was too tired to participate with rehab today. I ordered for patient to be put on suppl O2 via oxy mask whenever she is asleep or napping On 08/18 I updated the daughter and a family friend in the room, regarding her new pneumonia and her overall weakness. The daughter confirmed that the mother has a very poor appetite and mostly eats cottage cheese and peaches, she also likes well cooked asparagus and chocolate pudding. The daughter herself felt that the patient was doing worse since adm, and requested that I get a Neurology consult. On 08/18, I called and spoke to the Neurologist on-call, and reviewed the entire case, including the 2 falls at home. This Neurologist said that I had done due diligence for this patient, and had no new recommendations. Plan: PT and OT to keep working with her and we are recommending SNF for rehab (7) Fall at home Impression: Patient has a very bruised and mildly swollen left upper eyelid. That was the fall from several days ago. Following that she rolled out of bed 2 days later, landing on her left side she thinks. She complained of L sided pain s/p GLF and neck pain s/p GLF, in the ED. H/o recent L hip fracture s/p ORIF Her CSpine CT showed : DJD C1-C2, C5-C6, C6-C7 Her orthostatic vital signs reveal volume depletion, when checked the past several days. She received iv fluids for 2 days I restart Gabapentin at a lower dose of 100 mg TID not 300 mg TID She received 2 days of IV fluids, approximately 2 L positive in fluid balance. Chest x-ray today 08/17/2022 shows mild blunting of her costophrenic angles Plan: Since the patient had recent orthostasis, I will not yet restarted her Lasix. Her IV fluids were stopped when BNP was noted to be elevated but since she is taking in poor oral hydration and nutrition, I would consider gentle D5W Remain on lower gabapentin dose PT and OT rehab to continue (8) Severe protein calorie malnutrition The patient's BMI is only 17. She is cachectic, has temporal wasting and sunken eyes and diffuse muscle wasting and loss of subcutaneous fat. She screened for excessive weight loss, done by our Sports Instructor: Has had nutritional intake of less than 50% for 2 weeks or more, and has lost 12% of her weight in 6 months. Her labs showed a LDL of 48 and an HDL of 18, and she was on a statin at home. I ordered a more liberalized diet with Sports Instructor to take her meal choices I stopped her statin and will plan discharge off the statin. I started her on omega-3 tablet daily to increase her HDL On 08/18 I spoke to the daughter who was visiting in her room, who confirmed that her mother has a very poor appetite and mostly eats cottage cheese and peaches, she also likes well cooked asparagus and chocolate pudding. Plan: I have added Boost to be given with all meals I considering adding Remeron. I will discuss this with daughter. - Current Meds Current Meds: Current Medications Generic Name Dose Route Start Last Admin Trade Name Sugey PRN Reason Stop Dose Admin Aspirin 81 mg 08/14/22 09:00 08/19/22 08:56 Aspirin Chew 81 Mg Tablet PO 81 mg DAILY HENOK Administration Budesonide 0.5 mg 08/14/22 07:00 08/19/22 07:57 Budesonide 0.5 Mg/2 Ml Neb INH 0.5 mg RTBID HENOK Administration Diltiazem HCl 240 mg 08/14/22 09:00 08/19/22 08:56 Diltiazem Cd 240 Mg Capsule PO 240 mg DAILY HENOK Administration Enoxaparin Sodium 40 mg 08/14/22 09:00 08/19/22 08:55 Enoxaparin 40 Mg/0.4 Ml Syringe SUBQ 40 mg DAILY HENOK Administration Gabapentin 100 mg 08/15/22 22:00 08/19/22 07:00 Gabapentin 100 Mg Capsule PO 100 mg TID HENOK Administration Guaifenesin 600 mg 08/17/22 10:00 08/19/22 08:56 Guaifenesin 600 Mg Tablet PO 600 mg BID HENOK Administration Cefepime HCl 2 gm/ Sodium 100 mls @ 200 mls/hr 08/17/22 11:00 08/18/22 23:32 Chloride IV Infused Q12H HENOK Infusion Vancomycin HCl 1 gm/ Sodium 250 mls @ 167 mls/hr 08/18/22 10:00 08/18/22 14:15 Chloride IV Infused Q24H HENOK Infusion Levalbuterol HCl 1.25 mg 08/17/22 14:59 08/19/22 07:57 Levalbuterol 1.25 Mg/3 Ml Neb INH 1.25 mg RTQID HENOK Administration Multivitamins/Minerals 1 tab 08/15/22 17:00 08/19/22 08:57 Multivitamin W/Minerals Tablet PO 1 tab DAILYWM HENOK Administration [id number] Ethyl Esters 1 gm 08/15/22 12:00 08/19/22 08:55 Trade-3 Acid Ethyl Esters 1 Gm Capsule PO 1 gm BIDWM HENOK Administration Oxycodone HCl 5 mg 08/17/22 09:00 08/19/22 08:56 Oxycodone 5 Mg Tablet PO 5 mg BID HENOK Administration Potassium Chloride 10 meq 08/14/22 08:00 08/19/22 08:56 Potassium Chloride 10 Meq Capsule PO 10 meq DAILYWM HENOK Administration Saccharomyces Boulardii 250 mg 08/17/22 17:00 08/19/22 08:55 Saccharomyces Boulardii 250 Mg Capsule PO 250 mg BIDWM HENOK Administration Sodium Chloride 10 ml 08/14/22 01:00 08/19/22 08:57 Sodium Chloride Flush 0.9% 10 Ml Syringe IVP 10 ml 0100,0900,1700 HENOK Administration Tamsulosin HCl 0.4 mg 08/15/22 09:00 08/19/22 08:56 Tamsulosin 0.4 Mg Capsule PO 0.4 mg DAILY HENOK Administration - Lab Result Fish Bone Diagrams: 08/19/22 04:50 08/19/22 04:50 - Additional Planning My Orders: My Active Orders 08/18/22 10:00 Vancomycin Inj [Vancomycin] 1 gm Sodium Chloride 0.9% [Normal Saline 0.9%] 250 ml IV Q24H 08/19/22 09:11 Paz Insertion [RC] QSHIFT 08/19/22 09:12 Paz Continuation and Care [RC] QSHIFT Morphine Inj (Carpuject) [Morphine (Carpuject)] 2 mg IVP Q4HR PRN 08/19/22 10:00 methylPREDNISolone SUCCINATE [SOLU-Medrol (40MG VIAL)] 40 mg IVP TID 08/20/22 05:00 BMP - BASIC METABOLIC PANEL [CHEM] DAILYLAB CBC - COMP BLD CT W/AUTO DIFF [HEME] DAILYLAB Subjective - Subjective Patient Reports: Feeling Better (She is awake and alert and communicating, slow to answer questions) Objective Vital Signs: Vital Signs - 24 hr 08/18/22 08/18/22 08/18/22 11:27 14:25 15:26 Temperature 37.3 C Heart Rate 96 88 Heart Rate [ Brachial] Heart Rate [ 69 Monitoring electrodes] Respiratory 18 22 18 Rate Blood Pressure [Left Brachial artery] Blood Pressure 109/46 L [Right Brachial artery] O2 Saturation 95 If not protocol 4 3.5 3 : Oxygen Flow, liters/minute 08/18/22 08/18/22 08/18/22 16:00 19:39 20:51 Temperature 36.8 C 38.1 C H Heart Rate Heart Rate [ Brachial] Heart Rate [ 75 88 Monitoring electrodes] Respiratory 20 20 Rate Blood Pressure 114/41 L [Left Brachial artery] Blood Pressure 118/42 L [Right Brachial artery] O2 Saturation 96 98 If not protocol 3.5 3.5 4 : Oxygen Flow, liters/minute 08/18/22 08/19/22 08/19/22 20:52 00:37 04:03 Temperature 36.7 C 36.5 C Heart Rate 88 Heart Rate [ 77 Brachial] Heart Rate [ 82 Monitoring electrodes] Respiratory 20 18 22 Rate Blood Pressure [Left Brachial artery] Blood Pressure 112/39 L 113/58 L [Right Brachial artery] O2 Saturation 99 94 If not protocol 4 4 3 : Oxygen Flow, liters/minute 08/19/22 08/19/22 07:55 08:04 Temperature 36.4 C L Heart Rate 88 Heart Rate [ 89 Brachial] Heart Rate [ Monitoring electrodes] Respiratory 18 20 Rate Blood Pressure [Left Brachial artery] Blood Pressure 129/56 L [Right Brachial artery] O2 Saturation 97 If not protocol 2 2.5 : Oxygen Flow, liters/minute Oxygen O2 Source Oxymask I&O (Last 24 Hrs): Intake and Output Totals x24h 08/17/22 08/18/22 08/19/22 23:59 23:59 23:59 Intake Total 2059.218 1412.000 0 Output Total 650 900 400 Balance 1409.218 512.000 -400 General: Alert, Mild distress (She is tachypneic, needs to take her breath at mid-sentence) HEENT: Mucous membr. moist/pink, Other (wearing O2 n.c.. Cachectic with temporal wasting and sunken eyes) Neck: Supple, No JVD Neuro: Alert, Non Focal Cardiovascular: Regular rate (distant heart sounds), No murmurs Respiratory: Other (No wheezes or rales but extremely poor air movement in all lung fernández) Abdomen: Normal bowel sounds, Soft, No tenderness Extremities: No clubbing, No edema, No tenderness/swelling - Results Results: Laboratory Results WBC 27.6 x10^3/uL (4.8-10.8) H 08/19/22 04:50 RBC 3.69 10^6/uL (4.20-5.40) L 08/19/22 04:50 Hgb 10.2 g/dL (12.0-16.0) L 08/19/22 04:50 Hct 34.9 % (37.0-47.0) L 08/19/22 04:50 MCV 94.6 fL (81.0-99.0) 08/19/22 04:50 MCH 27.6 pg (27.0-31.0) 08/19/22 04:50 MCHC 29.2 g/dL (32.0-36.0) L 08/19/22 04:50 RDW 13.3 % (12.0-15.0) 08/19/22 04:50 Plt Count 450 10^3/uL (130-450) 08/19/22 04:50 MPV 9.3 fL (7.9-10.8) 08/19/22 04:50 Neut # (Auto) Not Reportable 08/19/22 04:50 Lymph # (Auto) Not Reportable 08/19/22 04:50 [place] # (Auto) Not Reportable 08/19/22 04:50 Eos # (Auto) Not Reportable 08/19/22 04:50 Baso # (Auto) Not Reportable 08/19/22 04:50 Absolute Nucleated RBC Not Reportable 08/19/22 04:50 Total Counted 100 08/19/22 04:50 Band Neuts % (Manual) 6 % (0-10) 08/19/22 04:50 Abnorm Lymph % (Manual) 0 % 08/19/22 04:50 Nucleated RBC % Not Reportable 08/19/22 04:50 Neutrophils # (Manual) 25.9 10^3/uL (1.5-6.6) H 08/19/22 04:50 Lymphocytes # (Manual) 0.6 10^3/uL (1.5-3.5) L 08/19/22 04:50 Monocytes # (Manual) 0.8 10^3/uL (0.0-1.0) 08/19/22 04:50 Eosinophils # (Manual) 0.3 10^3/uL (0-0.7) 08/19/22 04:50 Basophils # (Manual) 0.0 10^3/uL (0-0.1) 08/19/22 04:50 Differential Comment MANUAL DIFFERENTIAL 08/19/22 04:50 Manual Slide Review Indicated 08/13/22 16:15 WBC Morphology NORMAL APPEARANCE (NORMAL) 08/19/22 04:50 Platelet Estimate NORMAL (130-450,000) (NORMAL) 08/19/22 04:50 Platelet Morphology NORMAL APPEARANCE (NORMAL) 08/19/22 04:50 RBC Morph Micro Appear NORMAL APPEARANCE (NORMAL) 08/19/22 04:50 Bld Gas Analysis Time 0543 08/17/22 05:40 Sample Site RIGHT RADIAL 08/17/22 05:40 ABG pH 7.38 (7.35-7.45) 08/17/22 05:40 ABG pCO2 59 mmHg (34-45) H 08/17/22 05:40 ABG pO2 138 mmHg (80-100) H 08/17/22 05:40 ABG HCO3 34.0 mmol/L (22.0-26.0) H 08/17/22 05:40 ABG Total CO2 35.8 MMOL/L (21.0-29.0) H 08/17/22 05:40 ABG O2 Saturation 99 % (94-98) H 08/17/22 05:40 ABG Base Excess 7.0 mmol/L (-2.0-3.0) H 08/17/22 05:40 Migue Test POSITIVE 08/17/22 05:40 O2 Delivery Device OXYMASK 08/17/22 05:40 O2 Liters/Min 6.00 LPM 08/17/22 05:40 FiO2 44.00 08/17/22 05:40 Sodium 136 mmol/L (135-145) 08/19/22 04:50 Potassium 5.0 mmol/L (3.5-5.0) 08/19/22 04:50 Chloride 99 mmol/L (101-111) L 08/19/22 04:50 Carbon Dioxide 31 mmol/L (21-32) 08/19/22 04:50 Anion Gap 6.0 (6-13) 08/19/22 04:50 BUN 19 mg/dL (6-20) 08/19/22 04:50 Creatinine 0.6 mg/dL (0.4-1.0) 08/19/22 04:50 Estimated GFR (MDRD) 96 (>89) 08/19/22 04:50 Glucose 108 mg/dL (70-100) H 08/19/22 04:50 Calcium 8.3 mg/dL (8.5-10.3) L 08/19/22 04:50 Magnesium 2.0 mg/dL (1.7-2.8) 08/15/22 05:35 Total Bilirubin 0.4 mg/dL (0.2-1.0) 08/17/22 05:34 AST 13 IU/L (10-42) 08/17/22 05:34 ALT 15 IU/L (10-60) 08/17/22 05:34 Alkaline Phosphatase 71 IU/L (42-121) 08/17/22 05:34 Total Creatine Kinase 16 IU/L (22-269) L 08/13/22 16:15 Troponin I High Sens 17.4 ng/L (2.3-14.8) H* 08/17/22 08:42 B-Natriuretic Peptide 246 pg/mL (5-100) H 08/18/22 08:05 Total Protein 6.0 g/dL (6.7-8.2) L 08/17/22 05:34 Albumin 2.4 g/dL (3.2-5.5) L 08/17/22 05:34 Globulin 3.6 g/dL (2.1-4.2) 08/17/22 05:34 Albumin/Globulin Ratio 0.7 (1.0-2.2) L 08/17/22 05:34 Triglycerides 68 mg/dL (-149) 08/14/22 05:04 Cholesterol 60 mg/dL (-199) 08/14/22 05:04 LDL Cholesterol, Calc 28 mg/dL (-129) 08/14/22 05:04 VLDL Cholesterol 14 mg/dL 08/14/22 05:04 HDL Cholesterol 18 mg/dL (60-) L 08/14/22 05:04 LDL/HDL Ratio 1.6 (<4.4) 08/14/22 05:04 Cholesterol/HDL Ratio 3.3 (<4.4) 08/14/22 05:04 Urine Color YELLOW 08/13/22 17:52 Urine Clarity CLEAR (CLEAR) 08/13/22 17:52 Urine pH 5.0 PH (5.0-7.5) 08/13/22 17:52 Ur Specific [place] 1.015 (1.002-1.030) 08/13/22 17:52 Urine Protein NEGATIVE mg/dL (NEGATIVE) 08/13/22 17:52 Urine Glucose (UA) NEGATIVE mg/dL (NEGATIVE) 08/13/22 17:52 Urine Ketones NEGATIVE mg/dL (NEGATIVE) 08/13/22 17:52 Urine Occult Blood NEGATIVE (NEGATIVE) 08/13/22 17:52 Urine Nitrite NEGATIVE (NEGATIVE) 08/13/22 17:52 Urine Bilirubin NEGATIVE (NEGATIVE) 08/13/22 17:52 Urine Urobilinogen 0.2 (NORMAL) E.U./dL (NORMAL) 08/13/22 17:52 Ur Leukocyte Esterase NEGATIVE (NEGATIVE) 08/13/22 17:52 Ur Microscopic Review NOT INDICATED 08/13/22 17:52 Urine Culture Comments NOT INDICATED 08/13/22 17:52 SARS-CoV-2 (PCR) NOT DETECTED 08/18/22 08:43 - Procedures Procedures: Procedures EXCISION OF CECUM, ENDO (03/24/19) EXCISION OF SIGMOID COLON, ENDO (03/24/19) EXCISION OF TRANSVERSE COLON, ENDO (03/24/19)
[2022-08-19] MEDS: CEFEPIME 2 GM in SODIUM CHLORIDE 0.9% MINIBAG 100 ML IV SCH ×2 (10:52→22:40)
[2022-08-19] MEDS: methylPREDNISolone SUCCINATE 40 MG/ML VIAL IVP SCH ×3 (10:52→22:40)
[2022-08-19] MEDS: VANCOMYCIN INJ 1 GM in SODIUM CHLORIDE 0.9% 250 ML IV SCH (10:52)
[2022-08-19 14:11] LABS: BILIRUBIN,URINE NEGATIVE (NEGATIVE); GLUCOSE, URINE (UA) NEGATIVE (NEGATIVE); KETONES,URINE (UA) NEGATIVE (NEGATIVE); LEUKOCYTE ESTERASE, URINE LARGE (NEGATIVE); NITRITE,URINE NEGATIVE (NEGATIVE); OCCULT BLOOD,URINE SMALL (NEGATIVE); PH,URINE 5.5 PH (5.0-7.5); PROTEIN,URINE 30 mg/dL (NEGATIVE); UROBILINOGEN,URINE 0.2 (NORMAL) E.U./dL (NORMAL)
[2022-08-19 14:20] LABS: BACTERIA,URINE Moderate /HPF (None Seen); CLARITY,URINE CLOUDY (CLEAR); SQUAMOUS EPITHELIAL CELL,UR RARE Squamous (<= Few); WBC,URINE >25 /HPF (0-5)
--- NOTE | 2022-08-19 15:57 | PROVIDER PROGRESS NOTE ---
Hospitalist Cross-cover Note - Cross-Cover Note Cross-Cover Note: At 1545 the RN brought to me this patient's telemetry strip that shows she went from sinus rhythm into second-degree heart block and then into a junctional rhythm at rates of 30. Her BP with this is stable at 126/65 . She is currently somnolent but awakens, is in mild resp distress, is able to lie flat w/out dyspnea. Chest still has poor air mvm in all lung fernández. No murmur. Abd soft. I called her daughter Renate and spoke to her about this current finding which is usually a sign of an acute OH and that treatment is to transfer to the ICU and start external pacer patches if heart rate is low and continue her other treatment. Renate repeated that the mother had recently stated she wants everything done to be resuscitated therefore Renate did want her moved to the ICU, not to be made a DNR or to start comfort measures. I informed Renate that the prognosis is poor. Imp: Junctional bradycardia Plan: I will order transfer to the ICU, obtain troponins x2, EKG stat, chest x-ray stat, BMP stat. His external patches from pacing & put pacer machine in ICU room. We will order continuous Aminophylline drip, discussed with pharmacy. EKG was done which I interpreted: Sinus rhythm at a rate of 64, PVCs frequent, left atrial enlargement, no STEMI, then rhythm degenerates into junctional bradycardia. Rhythm strip was ordered which I interpreted: Sinus rhythm at a rate of 64 with freq PVCs, which degenerates into Junctional bradycardia at a rate of less than 10 for 3-4 beats, then NSR w/ PVCs returns. At 1735 her RN informed me that a daughter named Susan called from the [facility]. Apparently Renate had called Susan. The pt's RN Jesse received permission from [facility] to talk to Susan. Susan said that Renate is not her daughter and not her adopted daughter but that the patient just lives with Renate. The patient has 7 children who are scattered all over the [place]. I then called Renate again and asked whether she is the adopted daughter legally or verbally and Renate said she is "verbally" an adopted daughter. I then corrected her and said that legally she is just considered a friend if there is no legal paperwork for adoption. Renate confirmed that there are many children and the closest is Sin who lives in [facility] and he is coming to visit the patient tomorrow. Plan: I will speak to social work about these family interactions and ask social work to establish if there is the DPOA and who are all the people that we are allowed to speak with. CRITICAL CARE TIME SPENT: 60 min (Evaluating patient, reevaluating patient, ordering labs, reviewing lab results, interpreting EKG, calling patient's Contact twice, transferring to ICU and adjusting meds).
[2022-08-19] MEDS ORDERED: AMINOPHYLLINE IV ONE ×2 (16:27→17:00)
[2022-08-19] MEDS ORDERED: DEXTROSE 5% IV ONE ×2 (16:27→17:00)
[2022-08-19 16:40] LABS: CALCIUM 8.3 mg/dL (8.5-10.3); CREATININE 0.6 mg/dL (0.4-1.0); POTASSIUM 5.7 mmol/L (3.5-5.0)
[2022-08-19] MEDS: FAMOTIDINE 20 MG/2 ML VIAL IVP SCH (20:20)
[2022-08-19] MEDS: MONTELUKAST 10 MG TABLET PO SCH (20:21)
[2022-08-19] MEDS: MORPHINE 2 MG/ML CARPUJECT IVP PRN (22:46)
[2022-08-19 23:59] LABS: CALCIUM, IONIZED 1.2 mmol/L (1.15-1.33); VBG PH 7.359 (7.31-7.41)
[2022-08-20 00:08] LABS: CALCIUM 8.2 mg/dL (8.5-10.3); MAGNESIUM 2.3 mg/dL (1.7-2.8); POTASSIUM 5.5 mmol/L (3.5-5.0)
[2022-08-20] MEDS ORDERED: SODIUM CHLORIDE 0.9% 1,000 ML IV ONE (00:52)
--- NOTE | 2022-08-20 00:53 | PROVIDER PROGRESS NOTE ---
Route Service Representative Note - Route Service Representative Note Route Service Representative Note: Called by RN stating "Electrolytes came back somewhat WNL Potassium 5.5 ionized Ca 1.2 Mg 2.3 BP now 100/54 No Urine output passed two hours Pt may benefit from 500CC NS bolus ? Patient discussed earlier with RN and agree NS 1 liter bolus x one time ordered
[2022-08-20] MEDS ORDERED: AMINOPHYLLINE IV ONE (03:00)
[2022-08-20] MEDS ORDERED: DEXTROSE 5% IV ONE (03:00)
[2022-08-20 05:01] LABS: BASOPHILS % (AUTO) 0.2 %; HCT - HEMATOCRIT 33.7 % (37.0-47.0); HGB - HEMOGLOBIN 9.8 g/dL (12.0-16.0); LYMPHOCYTES % (AUTO) 2.3 %; MEAN CORPUSCULAR HEMOGLOBIN 27.4 pg (27.0-31.0); MEAN CORPUSCULAR HGB CONC 29.1 g/dL (32.0-36.0); MEAN CORPUSCULAR VOLUME 94.1 fL (81.0-99.0); MEAN PLATELET VOLUME 9.4 fL (7.9-10.8); MONOCYTES % (AUTO) 1.8 %; PLT - PLATELET COUNT 474 10^3/uL (130-450); RED BLOOD COUNT 3.58 10^6/uL (4.20-5.40); RED CELL DISTRIBUTION WIDTH 13.2 % (12.0-15.0); WHITE BLOOD COUNT 25.2 x10^3/uL (4.8-10.8)
[2022-08-20 05:09] LABS: CALCIUM 8.2 mg/dL (8.5-10.3); CREATININE 0.5 mg/dL (0.4-1.0); MAGNESIUM 2.4 mg/dL (1.7-2.8); POTASSIUM 4.9 mmol/L (3.5-5.0)
[2022-08-20 05:21] LABS: DIFFERENTIAL COMMENT MANUAL DIFFERENTIAL; PLATELET ESTIMATE, MANUAL INCREASED (>450,000) (NORMAL); PLATELET MORPHOLOGY NORMAL APPEARANCE (NORMAL); RBC MORPHOLOGY (MULTIPLE) NORMAL APPEARANCE (NORMAL); WBC MORPHOLOGY (MULTIPLE) NORMAL APPEARANCE (NORMAL)
[2022-08-20] MEDS: GABAPENTIN 100 MG CAPSULE PO SCH ×3 (05:21→21:28)
[2022-08-20] MEDS: methylPREDNISolone SUCCINATE 40 MG/ML VIAL IVP SCH ×3 (05:21→21:28)
[2022-08-20] MEDS: MORPHINE 2 MG/ML CARPUJECT IVP PRN (07:33)
[2022-08-20] MEDS: LEVALBUTEROL 1.25 MG/3 ML NEB INH SCH ×4 (07:36→18:17)
[2022-08-20] MEDS: BUDESONIDE 0.5 MG/2 ML NEB INH SCH ×2 (07:37→18:17)
[2022-08-20] MEDS ORDERED: diltiaZEM CD 240 MG CAPSULE PO SCH (08:09)
--- NOTE | 2022-08-20 08:12 | PROVIDER PROGRESS NOTE ---
Subjective - Subjective Pt reports feeling: Improved (She is alert and awake and communicative) Objective - Vital Signs/Intake & Output Reviewed Vital Signs: Yes Vital Signs: Vital Signs Temp Pulse Pulse Resp BP Pulse Ox O2 Flow Rate 08/20/22 08:00 36.4 C L 61 22 102/40 L 4 L 96 08/20/22 07:38 58 L 20 4 08/20/22 07:00 54 L 19 104/55 L 97 4 08/20/22 06:00 44 L 17 105/54 L 97 4 08/20/22 05:00 62 15 102/51 L 96 4 Intake & Output: Intake & Output 08/17/22 08/18/22 08/19/22 08/20/22 23:59 23:59 23:59 23:59 Intake Total 2059.218 1412.370 965 8715 Output Total 650 900 890 235 Balance 1409.218 512.000 -540 1365 - Objective General Appearance: positive: No acute distress, Alert, Other (Cachectic, wearing O2 nasal cannula) Eyes Bilateral: positive: Normal inspection, EOMI ENT: positive: No signs of dehydration Neck: positive: Nml inspection Respiratory: positive: No respiratory distress (Wearing O2 per nasal cannula, poor air movement diffusely but no wheezes or rales) Cardiovascular: positive: Irregularly irregular Abdomen: positive: Non-tender, No distention Skin: positive: Warm, Dry Extremities: positive: Non-tender, No pedal edema Neurologic/Psychiatric: positive: Oriented x3, Motor nml - Lab Results Fish Bones: 08/20/22 04:38 08/20/22 04:38 Other Labs: Lab Results x24hrs 08/20/22 08/20/22 08/19/22 Range/Units 04:38 04:38 23:53 WBC 25.2 H (4.8-10.8) x10^3/uL RBC 3.58 L (4.20-5.40) 10^6/uL Hgb 9.8 L (12.0-16.0) g/dL Hct 33.7 L (37.0-47.0) % MCV 94.1 (81.0-99.0) fL MCH 27.4 (27.0-31.0) pg MCHC 29.1 L (32.0-36.0) g/dL RDW 13.2 (12.0-15.0) % Plt Count 474 H (130-450) 10^3/uL MPV 9.4 (7.9-10.8) fL Neut # (Auto) Not Reportable Lymph # (Auto) Not Reportable [place] # (Auto) Not Reportable Eos # (Auto) Not Reportable Baso # (Auto) Not Reportable Absolute Nucleated RBC Not Reportable Band Neuts % (Manual) Not Reportable Abnorm Lymph % (Manual) Not Reportable Nucleated RBC % Not Reportable Neutrophils # (Manual) Not Reportable Lymphocytes # (Manual) Not Reportable Monocytes # (Manual) Not Reportable Eosinophils # (Manual) Not Reportable Basophils # (Manual) Not Reportable Differential Comment MANUAL DIFFERENTIAL WBC Morphology NORMAL APPEARANCE (NORMAL) Platelet Estimate INCREASED (>450,000) (NORMAL) Platelet Morphology NORMAL APPEARANCE (NORMAL) RBC Morph Micro Appear NORMAL APPEARANCE (NORMAL) VBG pH 7.359 (7.31-7.41) Ionized Calcium 1.20 (1.15-1.33) mmol/L Sodium 133 L (135-145) mmol/L Potassium 4.9 (3.5-5.0) mmol/L Chloride 97 L (101-111) mmol/L Carbon Dioxide 29 (21-32) mmol/L Anion Gap 7.0 (6-13) BUN 23 H (6-20) mg/dL Creatinine 0.5 (0.4-1.0) mg/dL Estimated GFR (MDRD) 118 (>89) Glucose 184 H (70-100) mg/dL Calcium 8.2 L (8.5-10.3) mg/dL Phosphorus (2.5-4.6) mg/dL Magnesium 2.4 (1.7-2.8) mg/dL Troponin I High Sens (2.3-14.8) ng/L Urine Color Urine Clarity Urine pH Ur Specific [place] Urine Protein Urine Glucose (UA) Urine Ketones Urine Occult Blood Urine Nitrite Urine Bilirubin Urine Urobilinogen Ur Leukocyte Esterase Urine RBC Urine WBC Urine WBC Clumps Ur Epithelial Cells Ur Squamous Epith Cells Urine Crystals Amorphous Sediment Urine Bacteria Urine Casts Urine Starch Urine Mucus Urine Trichomonas Urine Yeast Urine Sperm Ur Oval Fat Bodies Urine Culture Comments Nasal Screen MRSA (PCR) (NEGATIVE) 08/19/22 08/19/22 08/19/22 Range/Units 23:53 23:53 17:49 WBC (4.8-10.8) x10^3/uL RBC (4.20-5.40) 10^6/uL Hgb (12.0-16.0) g/dL Hct (37.0-47.0) % MCV (81.0-99.0) fL MCH (27.0-31.0) pg MCHC (32.0-36.0) g/dL RDW (12.0-15.0) % Plt Count (130-450) 10^3/uL MPV (7.9-10.8) fL Neut # (Auto) Lymph # (Auto) [place] # (Auto) Eos # (Auto) Baso # (Auto) Absolute Nucleated RBC Band Neuts % (Manual) Abnorm Lymph % (Manual) Nucleated RBC % Neutrophils # (Manual) Lymphocytes # (Manual) Monocytes # (Manual) Eosinophils # (Manual) Basophils # (Manual) Differential Comment WBC Morphology (NORMAL) Platelet Estimate (NORMAL) Platelet Morphology (NORMAL) RBC Morph Micro Appear (NORMAL) VBG pH (7.31-7.41) Ionized Calcium (1.15-1.33) mmol/L Sodium (135-145) mmol/L Potassium 5.5 H (3.5-5.0) mmol/L Chloride (101-111) mmol/L Carbon Dioxide (21-32) mmol/L Anion Gap (6-13) BUN (6-20) mg/dL Creatinine (0.4-1.0) mg/dL Estimated GFR (MDRD) (>89) Glucose (70-100) mg/dL Calcium 8.2 L (8.5-10.3) mg/dL Phosphorus 3.5 (2.5-4.6) mg/dL Magnesium 2.3 (1.7-2.8) mg/dL Troponin I High Sens 9.8 (2.3-14.8) ng/L Urine Color Urine Clarity Urine pH Ur Specific [place] Urine Protein Urine Glucose (UA) Urine Ketones Urine Occult Blood Urine Nitrite Urine Bilirubin Urine Urobilinogen Ur Leukocyte Esterase Urine RBC Urine WBC Urine WBC Clumps Ur Epithelial Cells Ur Squamous Epith Cells Urine Crystals Amorphous Sediment Urine Bacteria Urine Casts Urine Starch Urine Mucus Urine Trichomonas Urine Yeast Urine Sperm Ur Oval Fat Bodies Urine Culture Comments Nasal Screen MRSA (PCR) (NEGATIVE) 08/19/22 08/19/22 08/19/22 Range/Units 16:35 16:09 16:09 WBC (4.8-10.8) x10^3/uL RBC (4.20-5.40) 10^6/uL Hgb (12.0-16.0) g/dL Hct (37.0-47.0) % MCV (81.0-99.0) fL MCH (27.0-31.0) pg MCHC (32.0-36.0) g/dL RDW (12.0-15.0) % Plt Count (130-450) 10^3/uL MPV (7.9-10.8) fL Neut # (Auto) Lymph # (Auto) [place] # (Auto) Eos # (Auto) Baso # (Auto) Absolute Nucleated RBC Band Neuts % (Manual) Abnorm Lymph % (Manual) Nucleated RBC % Neutrophils # (Manual) Lymphocytes # (Manual) Monocytes # (Manual) Eosinophils # (Manual) Basophils # (Manual) Differential Comment WBC Morphology (NORMAL) Platelet Estimate (NORMAL) Platelet Morphology (NORMAL) RBC Morph Micro Appear (NORMAL) VBG pH (7.31-7.41) Ionized Calcium (1.15-1.33) mmol/L Sodium 135 (135-145) mmol/L Potassium 5.7 H (3.5-5.0) mmol/L Chloride 99 L (101-111) mmol/L Carbon Dioxide 33 H (21-32) mmol/L Anion Gap 3.0 L (6-13) BUN 18 (6-20) mg/dL Creatinine 0.6 (0.4-1.0) mg/dL Estimated GFR (MDRD) 96 (>89) Glucose 143 H (70-100) mg/dL Calcium 8.3 L (8.5-10.3) mg/dL Phosphorus (2.5-4.6) mg/dL Magnesium (1.7-2.8) mg/dL Troponin I High Sens 10.7 (2.3-14.8) ng/L Urine Color Urine Clarity Urine pH Ur Specific [place] Urine Protein Urine Glucose (UA) Urine Ketones Urine Occult Blood Urine Nitrite Urine Bilirubin Urine Urobilinogen Ur Leukocyte Esterase Urine RBC Urine WBC Urine WBC Clumps Ur Epithelial Cells Ur Squamous Epith Cells Urine Crystals Amorphous Sediment Urine Bacteria Urine Casts Urine Starch Urine Mucus Urine Trichomonas Urine Yeast Urine Sperm Ur Oval Fat Bodies Urine Culture Comments Nasal Screen MRSA (PCR) NEGATIVE (NEGATIVE) 08/19/22 08/19/22 Range/Units 14:00 10:40 WBC (4.8-10.8) x10^3/uL RBC (4.20-5.40) 10^6/uL Hgb (12.0-16.0) g/dL Hct (37.0-47.0) % MCV (81.0-99.0) fL MCH (27.0-31.0) pg MCHC (32.0-36.0) g/dL RDW (12.0-15.0) % Plt Count (130-450) 10^3/uL MPV (7.9-10.8) fL Neut # (Auto) Lymph # (Auto) [place] # (Auto) Eos # (Auto) Baso # (Auto) Absolute Nucleated RBC Band Neuts % (Manual) Abnorm Lymph % (Manual) Nucleated RBC % Neutrophils # (Manual) Lymphocytes # (Manual) Monocytes # (Manual) Eosinophils # (Manual) Basophils # (Manual) Differential Comment WBC Morphology (NORMAL) Platelet Estimate (NORMAL) Platelet Morphology (NORMAL) RBC Morph Micro Appear (NORMAL) VBG pH (7.31-7.41) Ionized Calcium (1.15-1.33) mmol/L Sodium (135-145) mmol/L Potassium (3.5-5.0) mmol/L Chloride (101-111) mmol/L Carbon Dioxide (21-32) mmol/L Anion Gap (6-13) BUN (6-20) mg/dL Creatinine (0.4-1.0) mg/dL Estimated GFR (MDRD) (>89) Glucose (70-100) mg/dL Calcium (8.5-10.3) mg/dL Phosphorus (2.5-4.6) mg/dL Magnesium (1.7-2.8) mg/dL Troponin I High Sens (2.3-14.8) ng/L Urine Color YELLOW Cancelled Urine Clarity CLOUDY Cancelled Urine pH 5.5 Cancelled Ur Specific [place] 1.025 Cancelled Urine Protein 30 H Cancelled Urine Glucose (UA) NEGATIVE Cancelled Urine Ketones NEGATIVE Cancelled Urine Occult Blood SMALL H Cancelled Urine Nitrite NEGATIVE Cancelled Urine Bilirubin NEGATIVE Cancelled Urine Urobilinogen 0.2 (NORMAL) Cancelled Ur Leukocyte Esterase LARGE H Cancelled Urine RBC 11-25 H Cancelled Urine WBC >25 H Cancelled Urine WBC Clumps Cancelled Ur Epithelial Cells Cancelled Ur Squamous Epith Cells RARE Squamous Cancelled Urine Crystals Cancelled Amorphous Sediment Cancelled Urine Bacteria Moderate H Cancelled Urine Casts Cancelled Urine Starch Cancelled Urine Mucus Cancelled Urine Trichomonas Cancelled Urine Yeast Cancelled Urine Sperm Cancelled Ur Oval Fat Bodies Cancelled Urine Culture Comments INDICATED Cancelled Nasal Screen MRSA (PCR) (NEGATIVE) Assessment/Plan - Problem List (1) Junctional bradycardia Impression: Yesterday afternoon the patient went into recurrent, brief episodes of junctional bradycardia with ventr rates of 10-30. She was transferred to the ICU. External pacer patches were put on as a precaution and the pacemaker device was moved into her ICU room, but she did not need to be externally paced. I put her on an Aminophylline continuous IV drip, to give her the desired ehsan e effect of a higher heart rate. All labs were reviewed today. Her labs were checked when she was transferred to the ICU. Her potassium was 5.5 which may have been the cause of the junctional bradycardia. The troponins were checked and EKG was done and these did not reveal an acute FL. Her Echo had been done earlier this admission which showed normal chamber sizes and normal LV and RV contractility. Plan: I am stopping the Cardizem CD temporarily. I suspect that later today she will not need the Aminophylline drip. Remain in the ICU. (2) UTI Assessment/Plan: For the last several days she has had urinary retention and needed straight cath. Yesterday a Paz catheter was finally inserted. During that insertion she had white purulent urine drained. A urinalysis was sent off and this had many WBCs and many bacteria. Her white count has risen from 16.6 up to 27.7 w/ a L shift>> 27.6 yesterday, and remains elevated at 25 today. I suspect the persistently elevated WBC is from this newly found UTI Despite the Paz, overnight last night she had poor urine output and the night telemedicine doctor gave her a 1 L saline bolus Plan: I have kept her on her iv Cefepime, which had already been started for the HCAP Await urine culture results Tailor antibiotics based on sensitivities (3) Acute urinary retention Assessment/Plan: For the last several nights the patient has had high residual on bladder scanning, showing urinary retention of 400-600. Straight caths were needed. I ordered a Paz insertion yesterday afternoon, because of her severe shortness of breath even at rest and this urinary retention. The patient is on a bladder medication which has been continued here I suspect this acute UTI is what caused the urinary retention Plan: Cont Paz for now (4) Acute and chronic respiratory failure with hypoxia Assessment/Plan: Patient was more hypoxic several days ago and was only saturating 84%. She needed her supplemental O2 increased to an Oxymask as high as 8 L/min, then was able to titrate O2 down to 4L/min via Oxymask and now occiasional n.c. The work-up showed that she has a new pneumonia and antibx were started after cx obtained. She was in new atrial flutter with RVR then too. All labs were reviewed. Troponins went from 7 to 20. I ordered her to be on oxy mask when she is asleep because she is a mouth breather Plan: Continue with empiric IV antibiotics to cover HCAP Await culture results Continue supplemental O2, target saturation is > 88% (5) HCAP (healthcare-associated pneumonia) Assessment/Plan: Her CXR on 08/17 showed a new RUL pneumonia. We obtained blood cx and sputum cx All labs were reviewed. Her white count has risen from 16.6 up to 27.7 w/ a L shift>> 27.6 yesterday and remains elevated at 25 today. I suspect the persistently elevated WBC is from that newly found UTI Plan: Cont empiric antibx to cover a Healthcare-associated pneumonia: using IV vancomycin, and IV Cefepime. Cont Florastor Follow WBC (6) COPD exacerbation Assessment/Plan: This new pneumonia had caused her to wheeze. She now has a COPD exacerbation. She still has wet phlegm in upper airway, and she only clears her throat, she seems to be too weak to cough it up. I started Montelukast q pm last night Because of very poor air movement on exam, I added Solu-Medrol 40 mg tid yesterday Plan: Cont Xopenex nebulized bronchodilators, Montelukast Cont Mucinex and Solumedrol I also ordered chest PT TID, for expectoration, if she can tolerate it (6) Atrial flutter with rapid ventricular response Assessment/Plan: The patient went into new A-fib spontaneously converted back to sinus rhythm, then went into atrial flutter with RVR on 08/17, when she was at her worst resp distress. After her morning Cardizem dose, she converted to NSR. Then she had Paroxysms of atrial flutter with 2-1 and 3-1 block for several days. Troponins went from 7 to 20, likely rate-related demand ischemia. Her BNP was mildly elevated 208>> 246 Earlier, she was already having short runs of PSVT, at rates of 115. She had an Echocardiogram done her 08/15, which showed normal LV size and function and normal RV size and function Plan: I will put a hold on her Cardizem CD for today, unless her heart rate rises over 90, because of the junctional heather rhythm Her [id number] score is 1, so Aspirin daily, not anticoagulant is indicated, and she is on ASA daily (7) Generalized weakness Assessment/Plan: The brain MRI showed only diffuse changes of atrophy, no evidence of old stroke or recent stroke. The patient does carry a diagnosis of polio, which may have given L>R leg weakness. On 08/17 her O2 sat was 83% at rest, while on n.c.so she was put boo oxymask. I ordered for patient to be put on suppl O2 via oxy mask whenever she is asleep or napping. She has been too tired to participate with rehab for several days On 08/18 I updated the visitors in the room, regarding her new pneumonia and her overall weakness. Renate confirmed that the pt has a very poor appetite and mostly eats cottage cheese and peaches, she also likes well cooked asparagus and chocolate pudding. Also that day Renate requested that I get a Neurology consult. On 08/18, I called and spoke to the Neurologist on-call, and reviewed the entire case, including the 2 falls at home. This Neurologist said that I had done due diligence for this patient, and had no new recommendations. Plan: Remain on lower gabapentin dose PT and OT to keep working with her and we are recommending SNF for rehab On 08/19, after being transferred to the ICU, her RN informed me that a daughter named Susan called from the [facility]. Apparently Renate had called Susan. The pt's RN Jesse received permission from Tiffany to talk to Susan. Susan said that Renate is not her daughter and not even an adopted daughter but that the patient just lives with Renate. The patient has 7 children who are scattered all over the [facility]. I then called Renate again and asked whether she is the adopted daughter legally or verbally and Renate said she is "verbally" an adopted daughter. I then corrected Renate and said that legally she is just considered a friend, if there is no legal paperwork for adoption. Renate confirmed that there are many children and the closest is Sin who lives in [facility] and he is coming to visit the patient. Today at bedside was the "adopted granddaughter" who said she is the "sister of Renate". When I remarked that Renate is not a blood relative are Tiffany, then she said she "feels like she is a sister to Renate, because they are so close". I will speak to Social Work about these family interactions and ask Social Work to establish if there is the DPOA and who are all the people that we are allowed to speak with her (however today is Sunday and we have no Electric Deicer Assembler here today). (8) Fall at home Impression: Patient has a very bruised and mildly swollen left upper eyelid. That was the fall from several days ago. Following that she rolled out of bed 2 days later, landing on her left side she thinks. She complained of L sided pain s/p GLF and neck pain s/p GLF, in the ED. H/o recent L hip fracture s/p ORIF Her CSpine CT showed : DJD C1-C2, C5-C6, C6-C7 Her orthostatic vital signs reveal volume depletion, when checked the past several days. She received iv fluids for 2 days I restart Gabapentin at a lower dose of 100 mg TID not 300 mg TID She received 2 days of IV fluids, approximately 2 L positive in fluid balance. Chest x-ray today 08/17/2022 shows mild blunting of her costophrenic angles Plan: Since the patient has had recent orthostasis, I did not yet restarted her Lasix. Her IV fluids were stopped when BNP was noted to be elevated but I am resuming iv fluids today due to her poor po intake, D5W at 83.33 cc/hr. Remain on lower gabapentin dose PT and OT rehab to continue (9) Severe protein calorie malnutrition The patient's BMI is only 17. She is cachectic, has temporal wasting and sunken eyes and diffuse muscle wasting and loss of subcutaneous fat. She screened for excessive weight loss, done by our Electric Melt Operator: Has had nutritional intake of less than 50% for 2 weeks or more, and has lost 12% of her weight in 6 months. Her labs showed a LDL of 48 and an HDL of 18, and she was on a statin at home. I ordered a more liberalized diet with Electric Melt Operator to take her meal choices I stopped her statin and will plan discharge off the statin. I started her on omega-3 tablet daily to increase her HDL On 08/18 I spoke to the daughter who was visiting in her room, who confirmed that her mother has a very poor appetite and mostly eats cottage cheese and peaches, she also likes well cooked asparagus and chocolate pudding. Plan: I have added Boost to be given with all meals I considering adding Remeron. I will discuss this with whoever is the legal next of kin
[2022-08-20] MEDS: oxyCODONE 5 MG TABLET PO SCH ×2 (08:43→21:28)
[2022-08-20] MEDS: guaiFENesin 600 MG TABLET PO SCH ×2 (08:43→21:27)
[2022-08-20] MEDS: TAMSULOSIN 0.4 MG CAPSULE PO SCH (08:43)
[2022-08-20] MEDS: SACCHAROMYCES BOULARDII 250 MG CAPSULE PO SCH ×2 (08:43→17:21)
[2022-08-20] MEDS: MULTIVITAMIN W/MINERALS TABLET PO SCH (08:43)
[2022-08-20] MEDS: OMEGA-3 ACID ETHYL ESTERS 1 GM CAPSULE PO SCH ×2 (08:43→17:21)
[2022-08-20] MEDS: ASPIRIN CHEW 81 MG TABLET PO SCH (08:43)
[2022-08-20] MEDS: ENOXAPARIN 40 MG/0.4 ML SYRINGE SUBQ SCH (09:26)
[2022-08-20] MEDS: FAMOTIDINE 20 MG/2 ML VIAL IVP SCH ×2 (09:27→21:27)
[2022-08-20] MEDS: DEXTROSE 5%-0.9% NACL 1,000 ML IV SCH ×2 (09:46→23:08)
[2022-08-20 09:48] LABS: VANCOMYCIN,TROUGH 14.6 ug/mL (10.0-20.0)
[2022-08-20] MEDS: VANCOMYCIN INJ 1 GM in SODIUM CHLORIDE 0.9% 250 ML IV SCH (10:45)
[2022-08-20] MEDS: SODIUM CHLORIDE FLUSH 0.9% 10 ML SYRINGE IVP SCH ×3 (10:55→23:08)
[2022-08-20] MEDS: CEFEPIME 2 GM in SODIUM CHLORIDE 0.9% MINIBAG 100 ML IV SCH ×2 (11:14→23:01)
[2022-08-20] MEDS: MONTELUKAST 10 MG TABLET PO SCH (21:28)
[2022-08-21 05:48] LABS: CALCIUM, IONIZED 1.14 mmol/L (1.15-1.33); VBG PH 7.338 (7.31-7.41)
[2022-08-21] MEDS: methylPREDNISolone SUCCINATE 40 MG/ML VIAL IVP SCH ×3 (05:50→22:08)
[2022-08-21] MEDS: GABAPENTIN 100 MG CAPSULE PO SCH ×3 (05:50→20:33)
[2022-08-21 05:57] LABS: MAGNESIUM 2.5 mg/dL (1.7-2.8); PHOSPHORUS 2.4 mg/dL (2.5-4.6)
[2022-08-21] MEDS: LEVALBUTEROL 1.25 MG/3 ML NEB INH SCH ×4 (07:24→20:45)
[2022-08-21] MEDS: BUDESONIDE 0.5 MG/2 ML NEB INH SCH ×2 (07:24→20:45)
[2022-08-21 07:46] LABS: BASOPHILS % (AUTO) 0.3 %; HCT - HEMATOCRIT 34.3 % (37.0-47.0); HGB - HEMOGLOBIN 10.1 g/dL (12.0-16.0); LYMPHOCYTES % (AUTO) 2.9 %; MEAN CORPUSCULAR HEMOGLOBIN 27.5 pg (27.0-31.0); MEAN CORPUSCULAR HGB CONC 29.4 g/dL (32.0-36.0); MEAN CORPUSCULAR VOLUME 93.5 fL (81.0-99.0); MEAN PLATELET VOLUME 9.1 fL (7.9-10.8); MONOCYTES % (AUTO) 1.8 %; NEUTROPHILS % (AUTO) 94.1 %; PLT - PLATELET COUNT 542 10^3/uL (130-450); RED BLOOD COUNT 3.67 10^6/uL (4.20-5.40); RED CELL DISTRIBUTION WIDTH 13.2 % (12.0-15.0); WHITE BLOOD COUNT 25.2 x10^3/uL (4.8-10.8)
[2022-08-21 07:57] LABS: ABNORMAL LYMPHS % (MANUAL) 0 %
[2022-08-21 08:03] LABS: CALCIUM 8.2 mg/dL (8.5-10.3); CREATININE 0.7 mg/dL (0.4-1.0); POTASSIUM 4.8 mmol/L (3.5-5.0)
[2022-08-21 08:18] LABS: BAND NEUTROPHILS % (MANUAL) 8 %; DIFFERENTIAL COMMENT MANUAL DIFFERENTIAL; LYMPHOCYTES # (MANUAL) 1.5 10^3/uL (1.5-3.5); LYMPHOCYTES % (MANUAL) 4 %; NEUTROPHILS # (MANUAL) 23.7 10^3/uL (1.5-6.6); REACTIVE LYMPHS % (MANUAL) 2 %
[2022-08-21] MEDS: MULTIVITAMIN W/MINERALS TABLET PO SCH (09:08)
[2022-08-21] MEDS: SACCHAROMYCES BOULARDII 250 MG CAPSULE PO SCH ×2 (09:08→18:14)
[2022-08-21] MEDS: ASPIRIN CHEW 81 MG TABLET PO SCH (09:08)
[2022-08-21] MEDS: guaiFENesin 600 MG TABLET PO SCH ×2 (09:08→20:33)
[2022-08-21] MEDS: TAMSULOSIN 0.4 MG CAPSULE PO SCH (09:08)
[2022-08-21] MEDS: SODIUM CHLORIDE FLUSH 0.9% 10 ML SYRINGE IVP SCH ×2 (09:09→18:15)
[2022-08-21] MEDS: FAMOTIDINE 20 MG/2 ML VIAL IVP SCH ×2 (09:09→20:33)
[2022-08-21] MEDS: OMEGA-3 ACID ETHYL ESTERS 1 GM CAPSULE PO SCH ×2 (09:09→18:14)
[2022-08-21] MEDS: ENOXAPARIN 40 MG/0.4 ML SYRINGE SUBQ SCH (09:09)
[2022-08-21] MEDS: NEUTRA-PHOS 250 MG TABLET PO SCH ×2 (09:12→11:35)
[2022-08-21] MEDS: oxyCODONE 5 MG TABLET PO SCH ×2 (09:16→22:08)
--- NOTE | 2022-08-21 09:26 | PROVIDER PROGRESS NOTE ---
Subjective - Subjective Pt reports feeling: Improved (She is awake, demanding of her RNs and wants to go home, wants to get up, and is picky about what foods she wants, today says she would eat hard-boiled eggs and peanut butter, but she only eats cottage cheese and canned peaches) Objective - Vital Signs/Intake & Output Reviewed Vital Signs: Yes Vital Signs: Vital Signs Temp Pulse Pulse Resp BP Pulse Ox O2 Flow Rate 08/21/22 09:00 92 16 93/60 95 2 08/21/22 08:13 36.4 C L 08/21/22 08:00 81 15 89/61 L 94 2 08/21/22 07:25 78 14 3 08/21/22 07:00 36.4 C L 74 16 103/62 100 3 08/21/22 06:00 36.4 C L 74 14 98/81 H 100 3 Intake & Output: Intake & Output 08/18/22 08/19/22 08/20/22 08/21/22 23:59 23:59 23:59 23:59 Intake Total 1412.110 231 5388.177 Output Total 900 890 790 285 Balance 512.000 -540 3519.177 -285 - Objective General Appearance: positive: Mild distress (Short of breath and is breathing with pursed mouth) Eyes Bilateral: positive: Normal inspection, EOMI ENT: positive: ENT inspection nml, No signs of dehydration, Other (Temporal wasting and eyes are sunken) Neck: positive: Nml inspection Respiratory: positive: Other (Poor air movement in all lung fernández but no wheezes or rhonchi) Cardiovascular: positive: Irregularly irregular, Other (Distant heart sounds, no murmur) Rectal: positive: Non-tender Skin: positive: Warm, Dry, Other (Positive skin tenting, diffuse muscle wasting) Extremities: positive: Non-tender, No pedal edema Neurologic/Psychiatric: positive: Oriented x3, Motor nml, Other (She has an angry mood) - Lab Results Fish Bones: 08/21/22 07:41 08/21/22 07:41 Other Labs: Lab Results x24hrs 08/21/22 08/21/22 08/21/22 Range/Units 07:41 07:41 04:30 WBC 25.2 H (4.8-10.8) x10^3/uL RBC 3.67 L (4.20-5.40) 10^6/uL Hgb 10.1 L (12.0-16.0) g/dL Hct 34.3 L (37.0-47.0) % MCV 93.5 (81.0-99.0) fL MCH 27.5 (27.0-31.0) pg MCHC 29.4 L (32.0-36.0) g/dL RDW 13.2 (12.0-15.0) % Plt Count 542 H (130-450) 10^3/uL MPV 9.1 (7.9-10.8) fL Neut # (Auto) Not Reportable Lymph # (Auto) Not Reportable Webster # (Auto) Not Reportable Eos # (Auto) Not Reportable Baso # (Auto) Not Reportable Absolute Nucleated RBC Not Reportable Total Counted 100 Band Neuts % (Manual) 8 (0 - 10) % Reactive Lymphs % (Man) 2 % Abnorm Lymph % (Manual) 0 % Nucleated RBC % Not Reportable Neutrophils # (Manual) 23.7 H (1.5-6.6) 10^3/uL Lymphocytes # (Manual) 1.5 (1.5-3.5) 10^3/uL Monocytes # (Manual) 0.0 (0.0-1.0) 10^3/uL Eosinophils # (Manual) 0.0 (0-0.7) 10^3/uL Basophils # (Manual) 0.0 (0-0.1) 10^3/uL Differential Comment MANUAL DIFFERENTIAL VBG pH 7.338 (7.31-7.41) Ionized Calcium 1.14 L (1.15-1.33) mmol/L Sodium 134 L (135-145) mmol/L Potassium 4.8 (3.5-5.0) mmol/L Chloride 102 (101-111) mmol/L Carbon Dioxide 29 (21-32) mmol/L Anion Gap 3.0 L (6-13) BUN 22 H (6-20) mg/dL Creatinine 0.7 (0.4-1.0) mg/dL Estimated GFR (MDRD) 80 L (>89) Glucose 178 H (70-100) mg/dL Calcium 8.2 L (8.5-10.3) mg/dL Phosphorus (2.5-4.6) mg/dL Magnesium (1.7-2.8) mg/dL Last Dose Date Last Dose Time Vancomycin Peak (20.0-40.0) ug/mL Vancomycin Trough (10.0-20.0) ug/mL 08/21/22 08/20/22 08/20/22 Range/Units 04:30 14:16 09:32 WBC (4.8-10.8) x10^3/uL RBC (4.20-5.40) 10^6/uL Hgb (12.0-16.0) g/dL Hct (37.0-47.0) % MCV (81.0-99.0) fL MCH (27.0-31.0) pg MCHC (32.0-36.0) g/dL RDW (12.0-15.0) % Plt Count (130-450) 10^3/uL MPV (7.9-10.8) fL Neut # (Auto) Lymph # (Auto) Webster # (Auto) Eos # (Auto) Baso # (Auto) Absolute Nucleated RBC Total Counted Band Neuts % (Manual) (0 - 10) % Reactive Lymphs % (Man) % Abnorm Lymph % (Manual) % Nucleated RBC % Neutrophils # (Manual) (1.5-6.6) 10^3/uL Lymphocytes # (Manual) (1.5-3.5) 10^3/uL Monocytes # (Manual) (0.0-1.0) 10^3/uL Eosinophils # (Manual) (0-0.7) 10^3/uL Basophils # (Manual) (0-0.1) 10^3/uL Differential Comment VBG pH (7.31-7.41) Ionized Calcium (1.15-1.33) mmol/L Sodium (135-145) mmol/L Potassium (3.5-5.0) mmol/L Chloride (101-111) mmol/L Carbon Dioxide (21-32) mmol/L Anion Gap (6-13) BUN (6-20) mg/dL Creatinine (0.4-1.0) mg/dL Estimated GFR (MDRD) (>89) Glucose (70-100) mg/dL Calcium (8.5-10.3) mg/dL Phosphorus 2.4 L (2.5-4.6) mg/dL Magnesium 2.5 (1.7-2.8) mg/dL Last Dose Date 08/20/22 08/19/22 Last Dose Time 1312 1307 Vancomycin Peak 36.3 (20.0-40.0) ug/mL Vancomycin Trough 14.6 (10.0-20.0) ug/mL Assessment/Plan - Problem List (1) Junctional bradycardia Impression: On 08/19 the patient went into recurrent, brief episodes of junctional bradycardia with ventr rates of 10-30. She was transferred to the ICU. External pacer patches were put on as a precaution and the pacemaker device was moved into her ICU room, but she did not need to be externally paced. I put her on an Aminophylline continuous IV drip, to give her the desired side effect of a higher heart rate, for 24 hours Her labs were checked when she was transferred to the ICU. Her potassium was 5.5 which may have been the cause of the junctional bradycardia. The troponins were checked and EKG was done and these did not reveal an acute TX. Her Echo had been done earlier this admission which showed normal chamber sizes and normal LV and RV contractility. I stopped the Cardizem CD temporarily. Plan: About 12 hours after the aminophylline was stopped, yesterday her rhythm was normal sinus at 70-80. This afternoon she is going back into A-fib at 100-140 and I am restarting Cardizem po but at a lower dose She will be moved out of the ICU to [facility] on telemetry. (2) UTI Assessment/Plan: For the last several days she has had urinary retention and needed straight cath. On 08/19 a Paz catheter was inserted due to high volume on bladder scan. During that insertion she had white purulent urine drained. A urinalysis was sent off and this had many WBCs and many bacteria. That urine culture is growing nothing (probably because she had a partially treated UTI, from already being on cefepime for her pneumonia) All labs were reviewed. Her white count lucia, I suspect the persistently elevated WBC is from this newly found UTI Plan: I have kept her on her iv Cefepime, which had already been started for the HCAP (3) Acute urinary retention Assessment/Plan: For the last several nights the patient has had high residual on bladder scanning, showing urinary retention of 400-600. Straight caths were needed. I ordered a Paz insertion because of her severe shortness of breath even at rest, plus this urinary retention. The patient is on a bladder medication which has been continued here I suspect this acute UTI is what caused the urinary retention Plan: Cont Paz for now (4) Acute and chronic respiratory failure with hypoxia Assessment/Plan: Patient was more hypoxic several days ago and was only saturating 84%. She needed her supplemental O2 increased to an Oxymask as high as 8 L/min, then was able to titrate O2 down to 4L/min via Oxymask and now occiasional n.c. The work-up showed that she has a new pneumonia found ib CXR on her 3rd day here, and antibx were started after cx obtained. She was in new atrial flutter with RVR then too. All labs were reviewed. Troponins went from 7 to 20. I ordered her to be on oxy mask when she is asleep because she is a mouth breather Plan: Continue with empiric IV antibiotics to cover HCAP Await sputum and blood culture results Continue supplemental O2, target saturation is > 88% (5) HCAP (healthcare-associated pneumonia) Assessment/Plan: Her CXR on 08/17 showed a new RUL pneumonia. We obtained blood cx and sputum cx All labs were reviewed. Her white count lucia from 16.6 up to 27.7 w/ a L shift>> 27.6>> 25>> 25 today. I suspect the persistently elevated WBC is from that newly found UTI and now 2 days of iv steroid use Plan: Cont empiric antibx to cover a Healthcare-associated pneumonia: using IV vancomycin, and IV Cefepime. Cont Florastor Follow WBC (6) COPD exacerbation Assessment/Plan: This new pneumonia had caused her to wheeze. She now has a COPD exacerbation. She still has wet phlegm in upper airway, and she only clears her throat, she seems to be too weak to cough it up. I started Montelukast q pm Because of very poor air movement on exam, I added Solu-Medrol 40 mg tid Plan: Cont Xopenex nebulized bronchodilators, Montelukast Cont Mucinex and Solumedrol I also ordered chest PT TID, for expectoration, if she can tolerate it (6) Atrial flutter with rapid ventricular response Assessment/Plan: The patient went into new A-fib spontaneously converted back to sinus rhythm, then went into atrial flutter with RVR on 08/17, when she was at her worst resp distress. After her morning Cardizem dose, she converted to NSR. Then she had Paroxysms of atrial flutter with 2-1 and 3-1 block for several days. Troponins went from 7 to 20, likely rate-related demand ischemia. Her BNP was mildly elevated 208>> 246 Earlier, she was already having short runs of PSVT, at rates of 115. She had an Echocardiogram done her 08/15, which showed normal LV size and function and normal RV size and function Plan: I will put a hold on her Cardizem CD, because of the junctional heather rhythm. Today heart rate is 100-140 so Cardizem CD will be resumed but not at 240 mg but at 120 mg. 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 We are still adjusting her heart rate meds actively Her [id number] score is 1, so Aspirin daily, not anticoagulant is indicated, and she is on ASA daily (7) Generalized weakness Assessment/Plan: The brain MRI showed only diffuse changes of atrophy, no evidence of old stroke or recent stroke. The patient does carry a diagnosis of polio, which may have given L>R leg weakness. On 08/17 her O2 sat was 83% at rest, while on n.c.so she was put boo oxymask. I ordered for patient to be put on suppl O2 via oxy mask whenever she is asleep or napping. She has been too tired to participate with rehab for several days On 08/18 I updated the visitors in the room, regarding her new pneumonia and her overall weakness. Renate confirmed that the pt has a very poor appetite and mostly eats cottage cheese and peaches, she also likes well cooked asparagus and chocolate pudding. Also that day Renate requested that I get a Neurology consult. On 08/18, I called and spoke to the Neurologist on-call, and reviewed the entire case, including the 2 falls at home. This Neurologist said that I had done due diligence for this patient, and had no new recommendations. Today 08/21, I updated her son Sin Amor, her biologic granddaughter Yvonne, the family friend Yolis, and Hortencia by phone, all at bedside in her room. Plan: Remain on lower gabapentin dose (300 mg tid was already decreased to 100 mg TID), and today I will decrease that to BID at 1300 & 2000 PT and OT to keep working with her, since she is deconditioned and felt too weak to do PT, the last 3 days. Our PT was recommending SNF for rehab. On 08/19, after being transferred to the ICU, her RN informed me that a daughter named Susan called from the [facility]. Apparently Renate had called Susan. The pt's RN Jesse received permission from Tiffany to talk to Susan. Susan said that Renate is not her daughter and not even an adopted daughter but that the patient just lives with Renate. The patient has 7 children who are scattered all over the [place]. I then called Renate again and asked whether she is the adopted daughter legally or verbally and Renate said she is "verbally" an adopted daughter. I then corrected Renate and said that legally she is just considered a friend, if there is no legal paperwork for adoption. Renate confirmed that there are many children and the closest is Sin who lives in [facility] and he was to come to visit the patient. On 08/20, at bedside was the "adopted granddaughter" who said she is also the "sister of Renate". When I remarked that Renate is not a blood relative to Tiffany, then she said she "feels like she is a sister to Renate, because they are so close". I told her that medical legally she is just considered a friend. I will speak to Social Work about these family interactions and ask Social Work to establish if there is the DPOA and who are all the people that we are allowed to speak with, about the pt. Today 08/21, I updated her son Sin from [place], her biologic granddaughter Yvonne, and the family friend Yolis, that medical legally if there is no one person designated as a DPOA, then all the current children (5 of 7 are alive), will need to agree on what we do, if the patient cannot make her own decisions (like she could not when she was obtunded and in junctional rhythm and was transferred to the ICU). (8) Fall at home Impression: Patient has a very bruised and mildly swollen left upper eyelid. That was the fall from several days ago. Following that she rolled out of bed 2 days later, landing on her left side she thinks. She complained of L sided pain s/p GLF and neck pain s/p GLF, in the ED. H/o recent L hip fracture s/p ORIF Her CSpine CT showed : DJD C1-C2, C5-C6, C6-C7 Her orthostatic vital signs reveal volume depletion, when checked the past several days. She received iv fluids for 2 days I restart Gabapentin at a lower dose of 100 mg TID not 300 mg TID She received 2 days of IV fluids, approximately 2 L positive in fluid balance. Chest x-ray today 08/17/2022 shows mild blunting of her costophrenic angles Plan: Since the patient has had recent orthostasis, I did not yet restarted her Lasix. Her IV fluids were stopped when BNP was noted to be elevated but I am resuming iv fluids today due to her poor po intake, D5W at 83.33 cc/hr. Remain on lower gabapentin dose (300 mg tid was decreased to 100 mg TID), and today I will decrease that to BID at 1300 & 2000 PT and OT rehab needs to continue (9) Severe protein calorie malnutrition The patient's BMI is only 17. She is cachectic, has temporal wasting and sunken eyes and diffuse muscle wasting and loss of subcutaneous fat. She screened for excessive weight loss, done by our Pool Table Mechanic: Has had nutritional intake of less than 50% for 2 weeks or more, and has lost 12% of her weight in 6 months. Her labs showed a LDL of 48 and an HDL of 18, and she was on a statin at home. I ordered a more liberalized diet with Pool Table Mechanic to take her meal choices I stopped her statin and will plan discharge off the statin. I started her on omega-3 tablet daily to increase her HDL On 08/18 I spoke to the daughter who was visiting in her room, who confirmed that her mother has a very poor appetite and mostly eats cottage cheese and peaches, she also likes well cooked asparagus and chocolate pudding. Today 08/21, when I asked what protein she eats, the family at bedside told me that she also likes peanut butter and hard-boiled eggs. Plan: I have added Boost to be given with all meals I will start Remeron to stimulate appetite.
[2022-08-21] MEDS: VANCOMYCIN INJ 1 GM in SODIUM CHLORIDE 0.9% 250 ML IV SCH (10:21)
[2022-08-21] MEDS: CEFEPIME 2 GM in SODIUM CHLORIDE 0.9% MINIBAG 100 ML IV SCH ×2 (11:26→22:35)
[2022-08-21] MEDS: DEXTROSE 5%-0.9% NACL 1,000 ML IV SCH (11:30)
[2022-08-21] MEDS: diltiaZEM CD 120 MG CAPSULE PO SCH (13:39)
[2022-08-21] MEDS ORDERED: METOPROLOL 5 MG/5 ML VIAL IVP STA (17:47)
[2022-08-21] MEDS: MONTELUKAST 10 MG TABLET PO SCH (20:33)
[2022-08-21] MEDS: MIRTAZAPINE 15 MG TABLET PO SCH (20:34)
[2022-08-21] MEDS: SODIUM CHLORIDE FLUSH 0.9% 10 ML SYRINGE IVP PRN (22:09)
[2022-08-22] MEDS: SODIUM CHLORIDE FLUSH 0.9% 10 ML SYRINGE IVP SCH ×3 (02:20→16:34)
[2022-08-22] MEDS: DEXTROSE 5%-0.9% NACL 1,000 ML IV SCH ×2 (03:12→16:33)
[2022-08-22 05:52] LABS: BASOPHILS % (AUTO) 0.3 %; HCT - HEMATOCRIT 34.9 % (37.0-47.0); HGB - HEMOGLOBIN 10.2 g/dL (12.0-16.0); LYMPHOCYTES % (AUTO) 2.5 %; MEAN CORPUSCULAR HEMOGLOBIN 27.6 pg (27.0-31.0); MEAN CORPUSCULAR HGB CONC 29.2 g/dL (32.0-36.0); MEAN CORPUSCULAR VOLUME 94.6 fL (81.0-99.0); MEAN PLATELET VOLUME 9.3 fL (7.9-10.8); PLT - PLATELET COUNT 560 10^3/uL (130-450); RED BLOOD COUNT 3.69 10^6/uL (4.20-5.40); RED CELL DISTRIBUTION WIDTH 13.5 % (12.0-15.0); WHITE BLOOD COUNT 22.5 x10^3/uL (4.8-10.8)
[2022-08-22 05:55] LABS: ABNORMAL LYMPHS % (MANUAL) 0 %
[2022-08-22 05:57] LABS: CALCIUM, IONIZED 1.21 mmol/L (1.15-1.33); VBG PH 7.288 (7.31-7.41)
[2022-08-22 06:08] LABS: BAND NEUTROPHILS % (MANUAL) 1 %; BASOPHILS # (MANUAL) 0.2 10^3/uL (0-0.1); BASOPHILS % (MANUAL) 1 %; DIFFERENTIAL COMMENT MANUAL DIFFERENTIAL; LYMPHOCYTES # (MANUAL) 0.7 10^3/uL (1.5-3.5); LYMPHOCYTES % (MANUAL) 3 %; MONOCYTES # (MANUAL) 0.7 10^3/uL (0.0-1.0); NEUTROPHILS # (MANUAL) 20.9 10^3/uL (1.5-6.6); PLATELET ESTIMATE, MANUAL INCREASED (>450,000) (NORMAL); PLATELET MORPHOLOGY NORMAL APPEARANCE (NORMAL); RBC MORPHOLOGY (MULTIPLE) NORMAL APPEARANCE (NORMAL); WBC MORPHOLOGY (MULTIPLE) NORMAL APPEARANCE (NORMAL)
[2022-08-22 06:09] LABS: CALCIUM 8.4 mg/dL (8.5-10.3); CREATININE 0.7 mg/dL (0.4-1.0); MAGNESIUM 2.7 mg/dL (1.7-2.8); PHOSPHORUS 2.6 mg/dL (2.5-4.6)
[2022-08-22] MEDS: methylPREDNISolone SUCCINATE 40 MG/ML VIAL IVP SCH ×3 (06:48→21:21)
[2022-08-22] MEDS: BUDESONIDE 0.5 MG/2 ML NEB INH SCH ×2 (07:10→21:06)
[2022-08-22] MEDS: LEVALBUTEROL 1.25 MG/3 ML NEB INH SCH ×4 (07:10→21:06)
[2022-08-22] MEDS: FAMOTIDINE 20 MG/2 ML VIAL IVP SCH ×2 (09:03→21:21)
[2022-08-22] MEDS: ENOXAPARIN 40 MG/0.4 ML SYRINGE SUBQ SCH (09:03)
[2022-08-22] MEDS: metroNIDAZOLE 500 MG/100 ML 500 MG/100 ML BAG IV SCH ×2 (09:04→16:31)
[2022-08-22] MEDS: CEFEPIME 2 GM in SODIUM CHLORIDE 0.9% MINIBAG 100 ML IV SCH ×2 (10:52→22:17)
[2022-08-22] MEDS ORDERED: oxyCODONE 5 MG TABLET PO PRN (11:01)
[2022-08-22] MEDS: MORPHINE 2 MG/ML CARPUJECT IVP PRN (12:15)
[2022-08-22] MEDS: OMEGA-3 ACID ETHYL ESTERS 1 GM CAPSULE PO SCH ×2 (12:18→16:49)
[2022-08-22] MEDS: SACCHAROMYCES BOULARDII 250 MG CAPSULE PO SCH ×2 (12:18→17:13)
[2022-08-22] MEDS: MULTIVITAMIN W/MINERALS TABLET PO SCH (12:18)
[2022-08-22] MEDS: TAMSULOSIN 0.4 MG CAPSULE PO SCH (12:19)
[2022-08-22] MEDS: guaiFENesin 600 MG TABLET PO SCH ×2 (12:19→21:21)
[2022-08-22] MEDS: diltiaZEM CD 120 MG CAPSULE PO SCH ×2 (12:23→12:26)
[2022-08-22] MEDS: ASPIRIN CHEW 81 MG TABLET PO SCH (12:26)
[2022-08-22] MEDS: GABAPENTIN 100 MG CAPSULE PO SCH ×2 (13:04→21:42)
[2022-08-22] MEDS: METOPROLOL 5 MG/5 ML VIAL IVP PRN (13:10)
--- NOTE | 2022-08-22 16:13 | XRAY Report ---
PROCEDURE: Chest 1 View X-Ray INDICATIONS: pneumonia TECHNIQUE: One view of the chest was acquired. COMPARISON: None. FINDINGS: Surgical changes and devices: None. Lungs and pleura: Patchy bilateral pulmonary atelectasis and or infiltrates present. Blunting of bot h costophrenic angles associated atelectasis greater in the left. Mediastinum: Heart size is enlarged. Mild vascular congestion present. Atherosclerotic vascular calc ification noted in the aortic arch. Bones and chest wall: Degenerative changes noted involving both shoulders IMPRESSION: Patchy bilateral pulmonary atelectasis and or infiltrates. Cardiomegaly and mild vascular congestion. Small bibasilar pleural effusions Reviewed by: Severino Perkins MD on 08/22/2022 3:12 PM AKDT Approved by: Severino Perkins MD on 08/22/2022 3:12 PM AKDT Station ID: [id number]
--- NOTE | 2022-08-22 17:17 | PROVIDER PROGRESS NOTE ---
Assessment/Plan - Problem List (1) Junctional bradycardia Assessment/Plan: Impression: On 08/19 the patient went into recurrent, brief episodes of junctional bradycardia with ventr rates of 10-30. She was transferred to the ICU. External pacer patches were put on as a precaution and the pacemaker device was moved into her ICU room, but she did not need to be externally paced. I put her on an Aminophylline continuous IV drip, to give her the desired side effect of a higher heart rate, for 24 hours Her labs were checked when she was transferred to the ICU. Her potassium was 5.5 which may have been the cause of the junctional bradycardia. The troponins were checked and EKG was done and these did not reveal an acute [place]. Her Echo had been done earlier this admission which showed normal chamber sizes and normal LV and RV contractility. I stopped the Cardizem CD temporarily. Plan: About 12 hours after the aminophylline was stopped, yesterday her rhythm was normal sinus at 70-80. This afternoon she is going back into A-fib at 100-140 and I am restarting Cardizem po but at a lower dose She will be moved out of the ICU to [facility] on telemetry. (2) UTI Assessment/Plan: For the last several days she has had urinary retention and needed straight cath. On 08/19 a Paz catheter was inserted due to high volume on bladder scan. During that insertion she had white purulent urine drained. A urinalysis was sent off and this had many WBCs and many bacteria. That urine culture is growing nothing (probably because she had a partially treated UTI, from already being on cefepime for her pneumonia) All labs were reviewed. Her white count lucia, I suspect the persistently elevated WBC is from this newly found UTI Plan: I have kept her on her iv Cefepime, which had already been started for the HCAP (3) Acute urinary retention Assessment/Plan: For the last several nights the patient has had high residual on bladder s joy, showing urinary retention of 400-600. Straight caths were needed. I ordered a Paz insertion because of her severe shortness of breath even at rest, plus this urinary retention. The patient is on a bladder medication which has been continued here I suspect this acute UTI is what caused the urinary retention Plan: Cont Paz for now (4) Acute and chronic respiratory failure with hypoxia Assessment/Plan: Patient was more hypoxic several days ago and was only saturating 84%. She needed her supplemental O2 increased to an Oxymask as high as 8 L/min, then was able to titrate O2 down to 4L/min via Oxymask and now occiasional n.c. The work-up showed that she has a new pneumonia found ib CXR on her 3rd day here, and antibx were started after cx obtained. She was in new atrial flutter with RVR then too. All labs were reviewed. Troponins went from 7 to 20. I ordered her to be on oxy mask when she is asleep because she is a mouth breather Plan: Continue with empiric IV antibiotics to cover HCAP Await sputum and blood culture results Continue supplemental O2, target saturation is > 88% (5) HCAP (healthcare-associated pneumonia) Assessment/Plan: Her CXR on 08/17 showed a new RUL pneumonia. We obtained blood cx and sputum cx All labs were reviewed. Her white count lucia from 16.6 up to 27.7 w/ a L shift >> 27.6>> 25>> 25 today. I suspect the persistently elevated WBC is from that newly found UTI and now 2 days of iv steroid use Plan: Cont empiric antibx to cover a Healthcare-associated pneumonia: using IV vancomycin, and IV Cefepime. Cont Florastor Follow WBC August 22, 2022-sputum culture is growing E. coli so have DC'd vancomycin and kept her cefepime and added Flagyl for possibility of aspiration pneumonia (6) COPD exacerbation Assessment/Plan: This new pneumonia had caused her to wheeze. She now has a COPD exacerbation. She still has wet phlegm in upper airway, and she only clears her throat, she seems to be too weak to cough it up. I started Montelukast q pm Because of very poor air movement on exam, I added Solu-Medrol 40 mg tid Plan: Cont Xopenex nebulized bronchodilators, Montelukast Cont Mucinex and Solumedrol I also ordered chest PT TID, for expectoration, if she can tolerate it (6) Atrial flutter with rapid ventricular response Assessment/Plan: The patient went into new A-fib spontaneously converted back to sinus rhythm, then went into atrial flutter with RVR on 08/17, when she was at her worst resp distress. After her morning Cardizem dose, she converted to NSR. Then she had Paroxysms of atrial flutter with 2-1 and 3-1 block for several days. Troponins went from 7 to 20, likely rate-related demand ischemia. Her BNP was mildly elevated 208>> 246 Earlier, she was already having short runs of PSVT, at rates of 115. She had an Echocardiogram done her 08/15, which showed normal LV size and function and normal RV size and function Plan: I will put a hold on her Cardizem CD, because of the junctional heather rhythm. Today heart rate is 100-140 so Cardizem CD will be resumed but not at 240 mg but at 120 mg. 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 We are still adjusting her heart rate meds actively Her [id number] score is 1, so Aspirin daily, not anticoagulant is indicated, and she is on ASA daily (7) Generalized weakness Assessment/Plan: The brain MRI showed only diffuse changes of atrophy, no evidence of old stroke or recent stroke. The patient does carry a diagnosis of polio, which may have given L>R leg weakness. On 08/17 her O2 sat was 83% at rest, while on n.c.so she was put boo oxymask. I ordered for patient to be put on suppl O2 via oxy mask whenever she is asleep or napping. She has been too tired to participate with rehab for several days On 08/18 I updated the visitors in the room, regarding her new pneumonia and her overall weakness. Renate confirmed that the pt has a very poor appetite and mostly eats cottage cheese and peaches, she also likes well cooked asparagus and chocolate pudding. Also that day Renate requested that I get a Neurology consult. On 08/18, I called and spoke to the Neurologist on-call, and reviewed the entire case, including the 2 falls at home. This Neurologist said that I h ad done due diligence for this patient, and had no new recommendations. Today 08/21, I updated her son Sin Amor, her biologic granddaughter Yvonne, the family friend Yolis, and Hortencia by phone, all at bedside in her room. Plan: Remain on lower gabapentin dose (300 mg tid was already decreased to 100 mg TID), and today I will decrease that to BID at 1300 & 2000 PT and OT to keep working with her, since she is deconditioned and felt too weak to do PT, the last 3 days. Our PT was recommending SNF for rehab. On 08/19, after being transferred to the ICU, her RN informed me that a daughter named Susan called from the [facility]. Apparently Renate had called Susan. The pt's RN Jesse received permission from Tiffany to talk to Susan. Susan said that Renate is not her daughter and not even an adopted daughter but that the patient just lives with Renate. The patient has 7 children who are scattered all over the [facility]. I then called Renate again and asked whether she is the adopted daughter legally or verbally and Renate said she is "verbally" an adopted daughter. I then corrected Renate and said that legally she is just considered a friend, if there is no legal paperwork for adoption. Renate confirmed that there are many children and the closest is Sin who lives in [facility] and he was to come to visit the patient. On 08/20, at bedside was the "adopted granddaughter" who said she is also the "sister of Renate". When I remarked that Renate is not a blood relative to Tiffany, then she said she "feels like she is a sister to Renate, because they are so close". I told her that medical legally she is just considered a friend. I will speak to Social Work about these family interactions and ask Social Work to establish if there is the DPOA and who are all the people that we are allowed to speak with, about the pt. Today 08/21, I updated her son Sin from [place], her biologic granddaughter Yvonne, and the family friend Yolis, that medical legally if there is no one person designated as a DPOA, then all the current children (5 of 7 are alive), will need to agree on what we do, if the patient cannot make her own decisions (like she could not when she was obtunded and in junctional rhythm and was transferred to the ICU). (8) Fall at home Impression: Patient has a very bruised and mildly swollen left upper eyelid. That was the fall from several days ago. Following that she rolled out of bed 2 days later, landing on her left side she thinks. She complained of L sided pain s/p GLF and neck pain s/p GLF, in the ED. H/o recent L hip fracture s/p ORIF Her CSpine CT showed : DJD C1-C2, C5-C6, C6-C7 Her orthostatic vital signs reveal volume depletion, when checked the past several days. She received iv fluids for 2 days I restart Gabapentin at a lower dose of 100 mg TID not 300 mg TID She received 2 days of IV fluids, approximately 2 L positive in fluid balance. Chest x-ray today 08/17/2022 shows mild blunting of her costophrenic angles Plan: Since the patient has had recent orthostasis, I did not yet restarted her Lasix. Her IV fluids were stopped when BNP was noted to be elevated but I am resuming iv fluids today due to her poor po intake, D5W at 83.33 cc/hr. Remain on lower gabapentin dose (300 mg tid was decreased to 100 mg TID), and today I will decrease that to BID at 1300 & 2000 PT and OT rehab needs to continue (9) Severe protein calorie malnutrition The patient's BMI is only 17. She is cachectic, has temporal wasting and sunken eyes and diffuse muscle wasting and loss of subcutaneous fat. She screened for excessive weight loss, done by our Rn Stars: Has had nutritional intake of less than 50% for 2 weeks or more, and has lost 12% of her weight in 6 months. Her labs showed a LDL of 48 and an HDL of 18, and she was on a statin at home. I ordered a more liberalized diet with Rn Stars to take her meal choices I stopped her statin and will plan discharge off the statin. I started her on omega-3 tablet daily to increase her HDL On 08/18 I spoke to the daughter who was visiting in her room, who confirmed that her mother has a very poor appetite and mostly eats cottage cheese and peaches, she also likes well cooked asparagus and chocolate pudding. Today 08/21, when I asked what protein she eats, the family at bedside told me that she also likes peanut butter and hard-boiled eggs. Plan: I have added Boost to be given with all meals I will start Remeron to stimulate appetite. - Current Meds Current Meds: Current Medications Generic Name Dose Route Start Last Admin Trade Name Sugey PRN Reason Stop Dose Admin Aspirin 81 mg 08/14/22 09:00 08/22/22 12:26 Aspirin Chew 81 Mg Tablet PO Not Given DAILY [facility] Budesonide 0.5 mg 08/14/22 07:00 08/22/22 07:10 Budesonide 0.5 Mg/2 Ml Neb INH 0.5 mg RTBID HENOK Administration Diltiazem HCl 120 mg 08/21/22 13:00 08/22/22 12:26 Diltiazem Cd 120 Mg Capsule PO Not Given DAILY [facility] Enoxaparin Sodium 40 mg 08/14/22 09:00 08/22/22 09:03 Enoxaparin 40 Mg/0.4 Ml Syringe SUBQ 40 mg DAILY HENOK Administration Famotidine 20 mg 08/19/22 21:00 08/22/22 09:03 Famotidine 20 Mg/2 Ml Vial IVP 20 mg BID HENOK Administration Gabapentin 100 mg 08/21/22 13:00 08/22/22 13:04 Gabapentin 100 Mg Capsule PO Not Given 1300,2000 [facility] Guaifenesin 600 mg 08/17/22 10:00 08/22/22 12:19 Guaifenesin 600 Mg Tablet PO Not Given BID [facility] Cefepime HCl 2 gm/ Sodium 100 mls @ 200 mls/hr 08/17/22 11:00 08/22/22 11:22 Chloride IV Infused Q12H HENOK Infusion Dextrose/Sodium Chloride 1,000 mls @ 83.333 mls/hr 08/20/22 09:00 08/22/22 16:33 D5ns IV 83.33 mls/hr .Q12H HENOK Administration Metronidazole 500 mg in 100 mls @ 100 mls/hr 08/22/22 09:00 08/22/22 16:31 Flagyl 500 Mg/100 Ml IV 100 mls/hr Q8H HENOK Administration Levalbuterol HCl 1.25 mg 08/17/22 14:59 08/22/22 15:39 Levalbuterol 1.25 Mg/3 Ml Neb INH 1.25 mg RTQID HENOK Administration Methylprednisolone 40 mg 08/19/22 10:00 08/22/22 13:11 Methylprednisolone Succinate 40 Mg/Ml Vial IVP 40 mg TID HENOK Administration Metoprolol Tartrate 5 mg 08/22/22 12:37 08/22/22 13:10 Metoprolol 5 Mg/5 Ml Vial IVP 5 mg Q6H PRN Administration HR>110 Mirtazapine 15 mg 08/21/22 21:00 08/21/22 20:34 Mirtazapine 15 Mg Tablet PO 15 mg QPM HENOK Administration Montelukast Sodium 10 mg 08/19/22 21:00 08/21/22 20:33 Montelukast 10 Mg Tablet PO 10 mg QPM HENOK Administration Morphine Sulfate 2 mg 08/19/22 09:12 08/22/22 12:15 Morphine 2 Mg/Ml Carpuject IVP 2 mg Q4HR PRN Administration Dyspnea Multivitamins/Minerals 1 tab 08/15/22 17:00 08/22/22 12:18 Multivitamin W/Minerals Tablet PO Not Given DAILYWM HENOK [id number] Ethyl Esters 1 gm 08/20/22 17:00 08/22/22 16:49 [place]-3 Acid Ethyl Esters 1 Gm Capsule PO Not Given BIDWM HENOK Saccharomyces Boulardii 250 mg 08/17/22 17:00 08/22/22 17:13 Saccharomyces Boulardii 250 Mg Capsule PO 250 mg BIDWM HENOK Administration Sodium Chloride 10 ml 08/13/22 19:43 08/21/22 22:09 Sodium Chloride Flush 0.9% 10 Ml Syringe IVP 10 ml PRN PRN Administration NEEDED PER PROVIDER ORDERS Sodium Chloride 10 ml 08/14/22 01:00 08/22/22 16:34 Sodium Chloride Flush 0.9% 10 Ml Syringe IVP 10 ml 0100,0900,1700 HENOK Administration Tamsulosin HCl 0.4 mg 08/15/22 09:00 08/22/22 12:19 Tamsulosin 0.4 Mg Capsule PO Not Given DAILY HENOK - Lab Result Fish Bone Diagrams: 08/22/22 05:16 08/22/22 05:16 - Additional Planning My Orders: My Active Orders 08/22/22 09:00 metroNIDAZOLE 500 MG/100 ML [Flagyl 500 mg/100 ml] 500 mg in 100 ml IV Q8H 08/22/22 11:01 oxyCODONE [Roxicodone] 5 mg PO BID PRN 08/22/22 11:15 ABG - ARTERIAL BLOOD GAS [BG] Urgent 08/22/22 12:37 Metoprolol Inj [Lopressor Inj] 5 mg IVP Q6H PRN Subjective - Subjective Patient Reports: Other Objective Vital Signs: Vital Signs - 24 hr 08/21/22 08/21/22 08/21/22 18:15 18:24 18:28 Temperature Heart Rate Heart Rate [ Brachial] Heart Rate [ 86 78 Monitoring electrodes] Respiratory Rate Blood Pressure 143/85 H Blood Pressure 136/71 H 106/67 [Right Brachial artery] O2 Saturation If not protocol : Oxygen Flow, liters/minute 08/21/22 08/21/22 08/21/22 18:33 18:36 18:50 Temperature Heart Rate Heart Rate [ Brachial] Heart Rate [ 77 72 70 Monitoring electrodes] Respiratory Rate Blood Pressure Blood Pressure 116/81 H 108/59 L 120/64 [Right Brachial artery] O2 Saturation If not protocol : Oxygen Flow, liters/minute 08/21/22 08/21/22 08/21/22 19:05 19:20 20:22 Temperature 36.5 C Heart Rate Heart Rate [ Brachial] Heart Rate [ 76 66 77 Monitoring electrodes] Respiratory 20 Rate Blood Pressure Blood Pressure 124/59 L 125/71 122/64 [Right Brachial artery] O2 Saturation 99 If not protocol 3 : Oxygen Flow, liters/minute 08/21/22 08/21/22 08/22/22 20:45 23:52 01:00 Temperature 36.2 C L Heart Rate 73 Heart Rate [ Brachial] Heart Rate [ 92 Monitoring electrodes] Respiratory 18 20 Rate Blood Pressure Blood Pressure 120/62 [Right Brachial artery] O2 Saturation 98 98 If not protocol 3 4 3 : Oxygen Flow, liters/minute 08/22/22 08/22/22 08/22/22 04:35 07:10 07:12 Temperature 36.3 C L Heart Rate 74 Heart Rate [ Brachial] Heart Rate [ 75 Monitoring electrodes] Respiratory 12 18 Rate Blood Pressure Blood Pressure 117/60 [Right Brachial artery] O2 Saturation 100 If not protocol 3 2 2 : Oxygen Flow, liters/minute 08/22/22 08/22/22 08/22/22 08:19 09:00 10:40 Temperature 36.2 C L Heart Rate Heart Rate [ Brachial] Heart Rate [ 72 Monitoring electrodes] Respiratory 22 Rate Blood Pressure Blood Pressure 135/59 H [Right Brachial artery] O2 Saturation 96 92 92 If not protocol 2 1 1 : Oxygen Flow, liters/minute 08/22/22 08/22/22 08/22/22 11:17 12:13 13:10 Temperature 36.5 C Heart Rate 60 Heart Rate [ Brachial] Heart Rate [ 70 Monitoring electrodes] Respiratory 18 21 Rate Blood Pressure 140/90 H Blood Pressure 145/93 H [Right Brachial artery] O2 Saturation 95 If not protocol 1 1 : Oxygen Flow, liters/minute 08/22/22 08/22/22 08/22/22 14:58 15:40 16:13 Temperature 36.5 C Heart Rate 84 Heart Rate [ 73 Brachial] Heart Rate [ Monitoring electrodes] Respiratory 18 20 Rate Blood Pressure Blood Pressure 132/69 H [Right Brachial artery] O2 Saturation 92 90 L If not protocol 0.5 : Oxygen Flow, liters/minute Oxygen O2 Source Room air I&O (Last 24 Hrs): Intake and Output Totals x24h 08/20/22 08/21/22 08/22/22 23:59 23:59 23:59 Intake Total 4309.177 3610.734 1259.235 Output Total 790 680 450 Balance 3519.177 2930.734 809.235 General: Other (Keeps her eyes closed does respond to some questions appropriately but does not interact) HEENT: Atraumatic Neck: Supple, No JVD Neuro: Other (See above) Cardiovascular: Regular rate, Normal S1, Normal S2 Respiratory: No respiratory distress, Breath sounds nml Abdomen: Normal bowel sounds, Soft Skin: No rashes - Results Results: Laboratory Results WBC 22.5 x10^3/uL (4.8-10.8) H 08/22/22 05:16 RBC 3.69 10^6/uL (4.20-5.40) L 08/22/22 05:16 Hgb 10.2 g/dL (12.0-16.0) L 08/22/22 05:16 Hct 34.9 % (37.0-47.0) L 08/22/22 05:16 MCV 94.6 fL (81.0-99.0) 08/22/22 05:16 MCH 27.6 pg (27.0-31.0) 08/22/22 05:16 MCHC 29.2 g/dL (32.0-36.0) L 08/22/22 05:16 RDW 13.5 % (12.0-15.0) 08/22/22 05:16 Plt Count 560 10^3/uL (130-450) H 08/22/22 05:16 MPV 9.3 fL (7.9-10.8) 08/22/22 05:16 Neut # (Auto) Not Reportable 08/22/22 05:16 Lymph # (Auto) Not Reportable 08/22/22 05:16 [place] # (Auto) Not Reportable 08/22/22 05:16 Eos # (Auto) Not Reportable 08/22/22 05:16 Baso # (Auto) Not Reportable 08/22/22 05:16 Absolute Nucleated RBC Not Reportable 08/22/22 05:16 Total Counted 100 08/22/22 05:16 Band Neuts % (Manual) 1 % (0-10) 08/22/22 05:16 Reactive Lymphs % (Man) 2 % 08/21/22 07:41 Abnorm Lymph % (Manual) 0 % 08/22/22 05:16 Nucleated RBC % Not Reportable 08/22/22 05:16 Neutrophils # (Manual) 20.9 10^3/uL (1.5-6.6) H 08/22/22 05:16 Lymphocytes # (Manual) 0.7 10^3/uL (1.5-3.5) L 08/22/22 05:16 Monocytes # (Manual) 0.7 10^3/uL (0.0-1.0) 08/22/22 05:16 Eosinophils # (Manual) 0.0 10^3/uL (0-0.7) 08/22/22 05:16 Basophils # (Manual) 0.2 10^3/uL (0-0.1) H 08/22/22 05:16 Differential Comment MANUAL DIFFERENTIAL 08/22/22 05:16 Manual Slide Review Indicated 08/13/22 16:15 WBC Morphology NORMAL APPEARANCE (NORMAL) 08/22/22 05:16 Platelet Estimate INCREASED (>450,000) (NORMAL) 08/22/22 05:16 Platelet Morphology NORMAL APPEARANCE (NORMAL) 08/22/22 05:16 RBC Morph Micro Appear NORMAL APPEARANCE (NORMAL) 08/22/22 05:16 Bld Gas Analysis Time 0543 08/17/22 05:40 Sample Site RIGHT RADIAL 08/17/22 05:40 ABG pH 7.38 (7.35-7.45) 08/17/22 05:40 ABG pCO2 59 mmHg (34-45) H 08/17/22 05:40 ABG pO2 138 mmHg (80-100) H 08/17/22 05:40 ABG HCO3 34.0 mmol/L (22.0-26.0) H 08/17/22 05:40 ABG Total CO2 35.8 MMOL/L (21.0-29.0) H 08/17/22 05:40 ABG O2 Saturation 99 % (94-98) H 08/17/22 05:40 ABG Base Excess 7.0 mmol/L (-2.0-3.0) H 08/17/22 05:40 Migue Test POSITIVE 08/17/22 05:40 VBG pH 7.288 (7.31-7.41) L 08/22/22 05:16 Ionized Calcium 1.21 mmol/L (1.15-1.33) 08/22/22 05:16 O2 Delivery Device OXYMASK 08/17/22 05:40 O2 Liters/Min 6.00 LPM 08/17/22 05:40 FiO2 44.00 08/17/22 05:40 Sodium 140 mmol/L (135-145) 08/22/22 05:16 Potassium 5.0 mmol/L (3.5-5.0) 08/22/22 05:16 Chloride 108 mmol/L (101-111) 08/22/22 05:16 Carbon Dioxide 28 mmol/L (21-32) 08/22/22 05:16 Anion Gap 4.0 (6-13) L 08/22/22 05:16 BUN 25 mg/dL (6-20) H 08/22/22 05:16 Creatinine 0.7 mg/dL (0.4-1.0) 08/22/22 05:16 Estimated GFR (MDRD) 80 (>89) L 08/22/22 05:16 Glucose 218 mg/dL (70-100) H 08/22/22 05:16 Calcium 8.4 mg/dL (8.5-10.3) L 08/22/22 05:16 Phosphorus 2.6 mg/dL (2.5-4.6) 08/22/22 05:16 Magnesium 2.7 mg/dL (1.7-2.8) 08/22/22 05:16 Total Bilirubin 0.4 mg/dL (0.2-1.0) 08/17/22 05:34 AST 13 IU/L (10-42) 08/17/22 05:34 ALT 15 IU/L (10-60) 08/17/22 05:34 Alkaline Phosphatase 71 IU/L (42-121) 08/17/22 05:34 Total Creatine Kinase 16 IU/L (22-269) L 08/13/22 16:15 Troponin I High Sens 9.8 ng/L (2.3-14.8) 08/19/22 17:49 B-Natriuretic Peptide 246 pg/mL (5-100) H 08/18/22 08:05 Total Protein 6.0 g/dL (6.7-8.2) L 08/17/22 05:34 Albumin 2.4 g/dL (3.2-5.5) L 08/17/22 05:34 Globulin 3.6 g/dL (2.1-4.2) 08/17/22 05:34 Albumin/Globulin Ratio 0.7 (1.0-2.2) L 08/17/22 05:34 Triglycerides 68 mg/dL (-149) 08/14/22 05:04 Cholesterol 60 mg/dL (-199) 08/14/22 05:04 LDL Cholesterol, Calc 28 mg/dL (-129) 08/14/22 05:04 VLDL Cholesterol 14 mg/dL 08/14/22 05:04 HDL Cholesterol 18 mg/dL (60-) L 08/14/22 05:04 LDL/HDL Ratio 1.6 (<4.4) 08/14/22 05:04 Cholesterol/HDL Ratio 3.3 (<4.4) 08/14/22 05:04 Urine Color YELLOW 08/19/22 14:00 Urine Clarity CLOUDY (CLEAR) 08/19/22 14:00 Urine pH 5.5 PH (5.0-7.5) 08/19/22 14:00 Ur Specific [place] 1.025 (1.002-1.030) 08/19/22 14:00 Urine Protein 30 mg/dL (NEGATIVE) H 08/19/22 14:00 Urine Glucose (UA) NEGATIVE mg/dL (NEGATIVE) 08/19/22 14:00 Urine Ketones NEGATIVE mg/dL (NEGATIVE) 08/19/22 14:00 Urine Occult Blood SMALL (NEGATIVE) H 08/19/22 14:00 Urine Nitrite NEGATIVE (NEGATIVE) 08/19/22 14:00 Urine Bilirubin NEGATIVE (NEGATIVE) 08/19/22 14:00 Urine Urobilinogen 0.2 (NORMAL) E.U./dL (NORMAL) 08/19/22 14:00 Ur Leukocyte Esterase LARGE (NEGATIVE) H 08/19/22 14:00 Urine RBC 11-25 /HPF (0-5) H 08/19/22 14:00 Urine WBC >25 /HPF (0-5) H 08/19/22 14:00 Urine WBC Clumps Cancelled 08/19/22 10:40 Ur Epithelial Cells Cancelled 08/19/22 10:40 Ur Squamous Epith Cells RARE Squamous (<= Few) 08/19/22 14:00 Urine Crystals Cancelled 08/19/22 10:40 Amorphous Sediment Cancelled 08/19/22 10:40 Urine Bacteria Moderate /HPF (None Seen) H 08/19/22 14:00 Urine Casts Cancelled 08/19/22 10:40 Urine Starch Cancelled 08/19/22 10:40 Urine Mucus Cancelled 08/19/22 10:40 Urine Trichomonas Cancelled 08/19/22 10:40 Urine Yeast Cancelled 08/19/22 10:40 Urine Sperm Cancelled 08/19/22 10:40 Ur Oval Fat Bodies Cancelled 08/19/22 10:40 Ur Microscopic Review NOT INDICATED 08/13/22 17:52 Urine Culture Comments INDICATED 08/19/22 14:00 Nasal Screen MRSA (PCR) NEGATIVE (NEGATIVE) 08/19/22 16:35 Last Dose Date 08/20/22 08/20/22 14:16 Last Dose Time 13108/20/22 14:16 Vancomycin Peak 36.3 ug/mL (20.0-40.0) 08/20/22 14:16 Vancomycin Trough 14.6 ug/mL (10.0-20.0) 08/20/22 09:32 SARS-CoV-2 (PCR) NOT DETECTED 08/18/22 08:43 - Procedures Procedures: Procedures EXCISION OF CECUM, ENDO (03/24/19) EXCISION OF SIGMOID COLON, ENDO (03/24/19) EXCISION OF TRANSVERSE COLON, ENDO (03/24/19)
[2022-08-22 18:38] LABS: MAGNESIUM 2.3 mg/dL (1.7-2.8); POTASSIUM 4.9 mmol/L (3.5-5.0)
[2022-08-22] MEDS: MONTELUKAST 10 MG TABLET PO SCH (21:21)
[2022-08-22] MEDS: MIRTAZAPINE 15 MG TABLET PO SCH (21:21)
[2022-08-23] MEDS: metroNIDAZOLE 500 MG/100 ML 500 MG/100 ML BAG IV SCH ×3 (00:49→17:13)
[2022-08-23] MEDS: SODIUM CHLORIDE FLUSH 0.9% 10 ML SYRINGE IVP SCH ×3 (00:52→17:13)
[2022-08-23] MEDS: methylPREDNISolone SUCCINATE 40 MG/ML VIAL IVP SCH ×3 (05:09→22:03)
[2022-08-23 05:40] LABS: BASOPHILS % (AUTO) 0.2 %; HCT - HEMATOCRIT 35.4 % (37.0-47.0); HGB - HEMOGLOBIN 10.4 g/dL (12.0-16.0); LYMPHOCYTES % (AUTO) 3.3 %; MEAN CORPUSCULAR HEMOGLOBIN 27.7 pg (27.0-31.0); MEAN CORPUSCULAR HGB CONC 29.4 g/dL (32.0-36.0); MEAN CORPUSCULAR VOLUME 94.1 fL (81.0-99.0); MEAN PLATELET VOLUME 9.2 fL (7.9-10.8); MONOCYTES % (AUTO) 2.2 %; NEUTROPHILS % (AUTO) 92.9 %; PLT - PLATELET COUNT 573 10^3/uL (130-450); RED BLOOD COUNT 3.76 10^6/uL (4.20-5.40); RED CELL DISTRIBUTION WIDTH 13.8 % (12.0-15.0)
[2022-08-23 05:44] LABS: ABNORMAL LYMPHS % (MANUAL) 0 %; BAND NEUTROPHILS % (MANUAL) 0 %
[2022-08-23 05:48] LABS: CREATININE 0.6 mg/dL (0.4-1.0)
[2022-08-23 06:05] LABS: CALCIUM 8.2 mg/dL (8.5-10.3); DIFFERENTIAL COMMENT MANUAL DIFFERENTIAL; LYMPHOCYTES # (MANUAL) 1.3 10^3/uL (1.5-3.5); LYMPHOCYTES % (MANUAL) 6 %; MONOCYTES # (MANUAL) 0.7 10^3/uL (0.0-1.0); PLATELET ESTIMATE, MANUAL INCREASED (>450,000) (NORMAL); PLATELET MORPHOLOGY NORMAL APPEARANCE (NORMAL); POTASSIUM 4.5 mmol/L (3.5-5.0); RBC MORPHOLOGY (MULTIPLE) NORMAL APPEARANCE (NORMAL); WBC MORPHOLOGY (MULTIPLE) NORMAL APPEARANCE (NORMAL)
[2022-08-23] MEDS: BUDESONIDE 0.5 MG/2 ML NEB INH SCH (07:23)
[2022-08-23] MEDS: LEVALBUTEROL 1.25 MG/3 ML NEB INH SCH ×3 (07:23→15:17)
[2022-08-23] MEDS: TAMSULOSIN 0.4 MG CAPSULE PO SCH (08:22)
[2022-08-23] MEDS: OMEGA-3 ACID ETHYL ESTERS 1 GM CAPSULE PO SCH ×2 (08:22→17:12)
[2022-08-23] MEDS: SACCHAROMYCES BOULARDII 250 MG CAPSULE PO SCH ×2 (08:22→17:13)
[2022-08-23] MEDS: ENOXAPARIN 40 MG/0.4 ML SYRINGE SUBQ SCH (08:22)
[2022-08-23] MEDS: MULTIVITAMIN W/MINERALS TABLET PO SCH (08:23)
[2022-08-23] MEDS: FAMOTIDINE 20 MG/2 ML VIAL IVP SCH ×2 (08:23→20:14)
[2022-08-23] MEDS: guaiFENesin 600 MG TABLET PO SCH ×2 (08:23→20:15)
[2022-08-23] MEDS: FUROSEMIDE 20 MG/2 ML VIAL IVP ONE ×2 (08:23→08:41)
[2022-08-23] MEDS: ASPIRIN CHEW 81 MG TABLET PO SCH (08:23)
[2022-08-23] MEDS ORDERED: FUROSEMIDE 20 MG/2 ML VIAL IVP ONE (09:10)
[2022-08-23] MEDS: DEXTROSE 5%-0.9% NACL 1,000 ML IV SCH (10:54)
[2022-08-23] MEDS: CEFEPIME 2 GM in SODIUM CHLORIDE 0.9% MINIBAG 100 ML IV SCH ×2 (11:26→22:04)
[2022-08-23] MEDS: VANCOMYCIN INJ 1 GM in SODIUM CHLORIDE 0.9% 250 ML IV SCH (12:15)
[2022-08-23] MEDS: GABAPENTIN 100 MG CAPSULE PO SCH ×2 (13:50→20:15)
--- NOTE | 2022-08-23 16:40 | PROVIDER PROGRESS NOTE ---
Assessment/Plan - Problem List (1) Junctional bradycardia Assessment/Plan: Assessment/Plan: Impression: On 08/19 the patient went into recurrent, brief episodes of junctional bradycardia with ventr rates of 10-30. She was transferred to the ICU. External pacer patches were put on as a precaution and the pacemaker device was moved into her ICU room, but she did not need to be externally paced. I put her on an Aminophylline continuous IV drip, to give her the desired side effect of a higher heart rate, for 24 hours Her labs were checked when she was transferred to the ICU. Her potassium was 5.5 which may have been the cause of the junctional bradycardia. The troponins were checked and EKG was done and these did not reveal an acute MS. Her Echo had been done earlier this admission which showed normal chamber sizes and normal LV and RV contractility. I stopped the Cardizem CD temporarily. Plan: About 12 hours after the aminophylline was stopped, yesterday her rhythm was normal sinus at 70-80. This afternoon she is going back into A-fib at 100-140 and I am restarting Cardizem po but at a lower dose She will be moved out of the ICU to [facility] on telemetry. (2) UTI Assessment/Plan: For the last several days she has had urinary retention and needed straight cath. On 08/19 a Paz catheter was inserted due to high volume on bladder scan. During that insertion she had white purulent urine drained. A urinalysis was sent off and this had many WBCs and many bacteria. That urine culture is growing nothing (probably because she had a partially treated UTI, from already being on cefepime for her pneumonia) All labs were reviewed. Her white count lucia, I suspect the persistently elevated WBC is from this newly found UTI Plan: I have kept her on her iv Cefepime, which had already been started for the HCAP (3) Acute urinary retention Assessment/Plan: For the last several nights the patient has had high residual on bladder scanning, showing urinary retention of 400-600. Straight caths were needed. I ordered a Paz insertion because of her severe shortness of breath even at rest, plus this urinary retention. The patient is on a bladder medication which has been continued here I suspect this acute UTI is what caused the urinary retention Plan: Cont Paz for now (4) Acute and chronic respiratory failure with hypoxia Assessment/Plan: Patient was more hypoxic several days ago and was only saturating 84%. She needed her supplemental O2 increased to an Oxymask as high as 8 L/min, then was able to titrate O2 down to 4L/min via Oxymask and now occiasional n.c. The work-up showed that she has a new pneumonia found ib CXR on her 3rd day here, and antibx were started after cx obtained. She was in new atrial flutter with RVR then too. All labs were reviewed. Troponins went from 7 to 20. I ordered her to be on oxy mask when she is asleep because she is a mouth breather Plan: Continue with empiric IV antibiotics to cover HCAP Await sputum and blood culture results Continue supplemental O2, target saturation is > 88% (5) HCAP (healthcare-associated pneumonia) Assessment/Plan: Her CXR on 08/17 showed a new RUL pneumonia. We obtained blood cx and sputum cx All labs were reviewed. Her white count lucia from 16.6 up to 27.7 w/ a L shift>> 27.6>> 25>> 25 today. I suspect the persistently elevated WBC is from that newly found UTI and now 2 days of iv steroid use Plan: Cont empiric antibx to cover a Healthcare-associated pneumonia: using IV vancomycin, and IV Cefepime. Cont Florastor Follow WBC August 22, 2022-sputum culture is growing E. coli so have DC'd vancomycin and kept her cefepime and added Flagyl for possibility of aspiration pneumonia August 23, 2022-sputum culture now is growing MRSA so have added back IV vancomycin (6) COPD exacerbation Assessment/Plan: This new pneumonia had caused her to wheeze. She now has a COPD exacerbation. She still has wet phlegm in upper airway, and she only clears her throat, she seems to be too weak to cough it up. I started Montelukast q pm Because of very poor air movement on exam, I added Solu-Medrol 40 mg tid Plan: Cont Xopenex nebulized bronchodilators, Montelukast Cont Mucinex and Solumedrol I also ordered chest PT TID, for expectoration, if she can tolerate it (6) Atrial flutter with rapid ventricular response Assessment/Plan: The patient went into new A-fib spontaneously converted back to sinus rhythm, then went into atrial flutter with RVR on 08/17, when she was at her worst resp distress. After her morning Cardizem dose, she converted to NSR. Then she had Paroxysms of atrial flutter with 2-1 and 3-1 block for several days. Troponins went from 7 to 20, likely rate-related demand ischemia. Her BNP was mildly elevated 208>> 246 Earlier, she was already having short runs of PSVT, at rates of 115. She had an Echocardiogram done her 08/15, which showed normal LV size and function and normal RV size and function Plan: I will put a hold on her Cardizem CD, because of the junctional heather rhythm. Today heart rate is 100-140 so Cardizem CD will be resumed but not at 240 mg but at 120 mg. 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 We are still adjusting her heart rate meds actively Her [id number] score is 1, so Aspirin daily, not anticoagulant is indicated, and she is on ASA daily (7) Generalized weakness Assessment/Plan: The brain MRI showed only diffuse changes of atrophy, no evidence of old stroke or recent stroke. The patient does carry a diagnosis of polio, which may have given L>R leg weakness. On 08/17 her O2 sat was 83% at rest, while on n.c.so she was put boo oxymask. I ordered for patient to be put on suppl O2 via oxy mask whenever she is asleep or napping. She has been too tired to participate with rehab for several days On 08/18 I updated the visitors in the room, regarding her new pneumonia and her overall weakness. Renate confirmed that the pt has a very poor appetite and mostly eats cottage cheese and peaches, she also likes well cooked asparagus and chocolate pudding. Also that day Renate requested that I get a Neurology consult. On 08/18, I called and spoke to the Neurologist on-call, and reviewed the entire case, including the 2 falls at home. This Neurologist said that I msa d done due diligence for this patient, and had no new recommendations. Today 08/21, I updated her son Sin Amor, her biologic granddaughter Yvonne, the family friend Yolis, and Hortencia by phone, all at bedside in her room. Plan: Remain on lower gabapentin dose (300 mg tid was already decreased to 100 mg TID), and today I will decrease that to BID at 1300 & 2000 PT and OT to keep working with her, since she is deconditioned and felt too weak to do PT, the last 3 days. Our PT was recommending SNF for rehab. On 08/19, after being transferred to the ICU, her RN informed me that a daughter named Susan called from the [facility]. Apparently Renate had called Susan. The pt's RN Jesse received permission from Tiffany to talk to Susan. Susan said that Renate is not her daughter and not even an adopted daughter but that the patient just lives with Renate. The patient has 7 children who are scattered all over the [facility]. I then called Renate again and asked whether she is the adopted daughter legally or verbally and Renate said she is "verbally" an adopted daughter. I then corrected Renate and said that legally she is just considered a friend, if there is no legal paperwork for adoption. Renate confirmed that there are many children and the closest is Sin who lives in [facility] and he was to come to visit the patient. On 08/20, at bedside was the "adopted granddaughter" who said she is also the "sister of Renate". When I remarked that Renate is not a blood relative to Tiffany, then she said she "feels like she is a sister to Renate, because they are so close". I told her that medical legally she is just considered a friend. I will speak to Social Work about these family interactions and ask Social Work to establish if there is the DPOA and who are all the people that we are allowed to speak with, about the pt. Today 08/21, I updated her son Sin from [place], her biologic granddaughter Yvonne, and the family friend Yolis, that medical legally if there is no one person designated as a DPOA, then all the current children (5 of 7 are alive), will need to agree on what we do, if the patient cannot make her own decisions (like she could not when she was obtunded and in junctional rhythm and was transferred to the ICU). (8) Fall at home Impression: Patient has a very bruised and mildly swollen left upper eyelid. That was the fall from several days ago. Following that she rolled out of bed 2 days later, landing on her left side she thinks. She complained of L sided pain s/p GLF and neck pain s/p GLF, in the ED. H/o recent L hip fracture s/p ORIF Her CSpine CT showed : DJD C1-C2, C5-C6, C6-C7 Her orthostatic vital signs reveal volume depletion, when checked the past several days. She received iv fluids for 2 days I restart Gabapentin at a lower dose of 100 mg TID not 300 mg TID She received 2 days of IV fluids, approximately 2 L positive in fluid balance. Chest x-ray today 08/17/2022 shows mild blunting of her costophrenic angles Plan: Since the patient has had recent orthostasis, I did not yet restarted her Lasix. Her IV fluids were stopped when BNP was noted to be elevated but I am resuming iv fluids today due to her poor po intake, D5W at 83.33 cc/hr. Remain on lower gabapentin dose (300 mg tid was decreased to 100 mg TID), and today I will decrease that to BID at 1300 & 2000 PT and OT rehab needs to continue (9) Severe protein calorie malnutrition The patient's BMI is only 17. She is cachectic, has temporal wasting and sunken eyes and diffuse muscle wasting and loss of subcutaneous fat. She screened for excessive weight loss, done by our Wheel [employer]er: Has had nutritional intake of less than 50% for 2 weeks or more, and has lost 12% of her weight in 6 months. Her labs showed a LDL of 48 and an HDL of 18, and she was on a statin at home. I ordered a more liberalized diet with [employer]er to take her meal choices I stopped her statin and will plan discharge off the statin. I started her on omega-3 tablet daily to increase her HDL On 08/18 I spoke to the daughter who was visiting in her room, who confirmed that her mother has a very poor appetite and mostly eats cottage cheese and peaches, she also likes well cooked asparagus and chocolate pudding. Today 08/21, when I asked what protein she eats, the family at bedside told me that she also likes peanut butter and hard-boiled eggs. Plan: I have added Boost to be given with all meals I will start Remeron to stimulate appetite. - Current Meds Current Meds: Current Medications Generic Name Dose Route Start Last Admin Trade Name Freq PRN Reason Stop Dose Admin Aspirin 81 mg 08/14/22 09:00 08/23/22 08:23 Aspirin Chew 81 Mg Tablet PO 81 mg DAILY HENOK Administration Budesonide 0.5 mg 08/14/22 07:00 08/23/22 07:23 Budesonide 0.5 Mg/2 Ml Neb INH 0.5 mg RTBID HENOK Administration Enoxaparin Sodium 40 mg 08/14/22 09:00 08/23/22 08:22 Enoxaparin 40 Mg/0.4 Ml Syringe SUBQ 40 mg DAILY HENOK Administration Famotidine 20 mg 08/19/22 21:00 08/23/22 08:23 Famotidine 20 Mg/2 Ml Vial IVP 20 mg BID HENOK Administration Gabapentin 100 mg 08/21/22 13:00 08/23/22 13:50 Gabapentin 100 Mg Capsule PO 100 mg 1300,2000 HENOK Administration Guaifenesin 600 mg 08/17/22 10:00 08/23/22 08:23 Guaifenesin 600 Mg Tablet PO 600 mg BID HENOK Administration Cefepime HCl 2 gm/ Sodium 100 mls @ 200 mls/hr 08/17/22 11:00 08/23/22 12:28 Chloride IV Infused Q12H HENKO Infusion Metronidazole 500 mg in 100 mls @ 100 mls/hr 08/22/22 09:00 08/23/22 10:54 Flagyl 500 Mg/100 Ml IV Infused Q8H HENOK Infusion Vancomycin HCl 1 gm/ Sodium 250 mls @ 167 mls/hr 08/23/22 11:00 08/23/22 13:59 Chloride IV Infused Q24H HENOK Infusion Levalbuterol HCl 1.25 mg 08/17/22 14:59 08/23/22 15:17 Levalbuterol 1.25 Mg/3 Ml Neb INH 1.25 mg RTQID HENOK Administration Methylprednisolone 40 mg 08/19/22 10:00 08/23/22 13:50 Methylprednisolone Succinate 40 Mg/Ml Vial IVP 40 mg TID HENOK Administration Metoprolol Tartrate 5 mg 08/22/22 12:37 08/22/22 13:10 Metoprolol 5 Mg/5 Ml Vial IVP 5 mg Q6H PRN Administration HR>110 Mirtazapine 15 mg 08/21/22 21:00 08/22/22 21:21 Mirtazapine 15 Mg Tablet PO 15 mg QPM HENOK Administration Montelukast Sodium 10 mg 08/19/22 21:00 08/22/22 21:21 Montelukast 10 Mg Tablet PO 10 mg QPM HENOK Administration Morphine Sulfate 2 mg 08/19/22 09:12 08/22/22 12:15 Morphine 2 Mg/Ml Carpuject IVP 2 mg Q4HR PRN Administration Dyspnea Multivitamins/Minerals 1 tab 08/15/22 17:00 08/23/22 08:23 Multivitamin W/Minerals Tablet PO 1 tab DAILYWM HENOK Administration Fzema-3-Hygf Ethyl Esters 1 gm 08/20/22 17:00 08/23/22 08:22 [place]-3 Acid Ethyl Esters 1 Gm Capsule PO 1 gm BIDWM HENOK Administration Saccharomyces Boulardii 250 mg 08/17/22 17:00 08/23/22 08:22 Saccharomyces Boulardii 250 Mg Capsule PO 250 mg BIDWM HENOK Administration Sodium Chloride 10 ml 08/13/22 19:43 08/21/22 22:09 Sodium Chloride Flush 0.9% 10 Ml Syringe IVP 10 ml PRN PRN Administration NEEDED PER PROVIDER ORDERS Sodium Chloride 10 ml 08/14/22 01:00 08/23/22 08:41 Sodium Chloride Flush 0.9% 10 Ml Syringe IVP 10 ml 0100,0900,1700 HENOK Administration Tamsulosin HCl 0.4 mg 08/15/22 09:00 08/23/22 08:22 Tamsulosin 0.4 Mg Capsule PO 0.4 mg DAILY HENOK Administration - Lab Result Fish Bone Diagrams: 08/23/22 05:22 08/23/22 05:22 Subjective - Subjective Patient Reports: Other (Patient is more alert today and answering questions) Objective Vital Signs: Vital Signs - 24 hr 08/22/22 08/22/22 08/22/22 20:09 20:18 21:09 Temperature 36.3 C L Heart Rate 87 Heart Rate [ 64 66 Brachial] Heart Rate [ Monitoring electrodes] Respiratory 24 16 Rate Blood Pressure 146/88 H [Right Brachial artery] O2 Saturation 100 99 If not protocol 1 1 1 : Oxygen Flow, liters/minute 08/22/22 08/23/22 08/23/22 21:15 00:08 04:54 Temperature 36.6 C 36.2 C L Heart Rate Heart Rate [ Brachial] Heart Rate [ 118 H 90 Monitoring electrodes] Respiratory 24 20 Rate Blood Pressure 163/64 H 141/71 H [Right Brachial artery] O2 Saturation 96 96 If not protocol 1 1 1 : Oxygen Flow, liters/minute 08/23/22 08/23/22 08/23/22 07:23 08:47 11:20 Temperature 36.3 C L Heart Rate 89 99 Heart Rate [ Brachial] Heart Rate [ 106 H Monitoring electrodes] Respiratory 20 18 18 Rate Blood Pressure 137/60 H [Right Brachial artery] O2 Saturation 100 If not protocol 2 1 : Oxygen Flow, liters/minute 08/23/22 08/23/22 08/23/22 11:57 15:18 16:10 Temperature 36.4 C L 36.5 C Heart Rate 102 H Heart Rate [ 101 H 79 Brachial] Heart Rate [ Monitoring electrodes] Respiratory 20 18 20 Rate Blood Pressure 154/76 H 152/87 H [Right Brachial artery] O2 Saturation 93 92 If not protocol : Oxygen Flow, liters/minute Oxygen O2 Source Room air I&O (Last 24 Hrs): Intake and Output Totals x24h 08/21/22 08/22/22 08/23/22 23:59 23:59 23:59 Intake Total 3610.734 0159.471 6914.852 Output Total 380 533 5938 Balance 2930.734 1263.383 -534.148 General: Alert, No acute distress HEENT: Atraumatic Neck: Supple Neuro: Non Focal Cardiovascular: Regular rate, Normal S1, Normal S2 Respiratory: No respiratory distress Abdomen: Normal bowel sounds, Soft Skin: No rashes - Results Results: Laboratory Results WBC 22.0 x10^3/uL (4.8-10.8) H 08/23/22 05:22 RBC 3.76 10^6/uL (4.20-5.40) L 08/23/22 05:22 Hgb 10.4 g/dL (12.0-16.0) L 08/23/22 05:22 Hct 35.4 % (37.0-47.0) L 08/23/22 05:22 MCV 94.1 fL (81.0-99.0) 08/23/22 05:22 MCH 27.7 pg (27.0-31.0) 08/23/22 05:22 MCHC 29.4 g/dL (32.0-36.0) L 08/23/22 05:22 RDW 13.8 % (12.0-15.0) 08/23/22 05:22 Plt Count 573 10^3/uL (130-450) H 08/23/22 05:22 MPV 9.2 fL (7.9-10.8) 08/23/22 05:22 Neut # (Auto) Not Reportable 08/23/22 05:22 Lymph # (Auto) Not Reportable 08/23/22 05:22 [place] # (Auto) Not Reportable 08/23/22 05:22 Eos # (Auto) Not Reportable 08/23/22 05:22 Baso # (Auto) Not Reportable 08/23/22 05:22 Absolute Nucleated RBC Not Reportable 08/23/22 05:22 Total Counted 100 08/23/22 05:22 Band Neuts % (Manual) 0 % (0-10) 08/23/22 05:22 Reactive Lymphs % (Man) 2 % 08/21/22 07:41 Abnorm Lymph % (Manual) 0 % 08/23/22 05:22 Nucleated RBC % Not Reportable 08/23/22 05:22 Neutrophils # (Manual) 20.0 10^3/uL (1.5-6.6) H 08/23/22 05:22 Lymphocytes # (Manual) 1.3 10^3/uL (1.5-3.5) L 08/23/22 05:22 Monocytes # (Manual) 0.7 10^3/uL (0.0-1.0) 08/23/22 05:22 Eosinophils # (Manual) 0.0 10^3/uL (0-0.7) 08/23/22 05:22 Basophils # (Manual) 0.0 10^3/uL (0-0.1) 08/23/22 05:22 Differential Comment MANUAL DIFFERENTIAL 08/23/22 05:22 Manual Slide Review Indicated 08/13/22 16:15 WBC Morphology NORMAL APPEARANCE (NORMAL) 08/23/22 05:22 Platelet Estimate INCREASED (>450,000) (NORMAL) 08/23/22 05:22 Platelet Morphology NORMAL APPEARANCE (NORMAL) 08/23/22 05:22 RBC Morph Micro Appear NORMAL APPEARANCE (NORMAL) 08/23/22 05:22 Bld Gas Analysis Time 0543 08/17/22 05:40 Sample Site RIGHT RADIAL 08/17/22 05:40 ABG pH 7.38 (7.35-7.45) 08/17/22 05:40 ABG pCO2 59 mmHg (34-45) H 08/17/22 05:40 ABG pO2 138 mmHg (80-100) H 08/17/22 05:40 ABG HCO3 34.0 mmol/L (22.0-26.0) H 08/17/22 05:40 ABG Total CO2 35.8 MMOL/L (21.0-29.0) H 08/17/22 05:40 ABG O2 Saturation 99 % (94-98) H 08/17/22 05:40 ABG Base Excess 7.0 mmol/L (-2.0-3.0) H 08/17/22 05:40 Migue Test POSITIVE 08/17/22 05:40 VBG pH 7.288 (7.31-7.41) L 08/22/22 05:16 Ionized Calcium 1.21 mmol/L (1.15-1.33) 08/22/22 05:16 O2 Delivery Device OXYMASK 08/17/22 05:40 O2 Liters/Min 6.00 LPM 08/17/22 05:40 FiO2 44.00 08/17/22 05:40 Sodium 140 mmol/L (135-145) 08/23/22 05:22 Potassium 4.5 mmol/L (3.5-5.0) 08/23/22 05:22 Chloride 110 mmol/L (101-111) 08/23/22 05:22 Carbon Dioxide 24 mmol/L (21-32) 08/23/22 05:22 Anion Gap 6.0 (6-13) 08/23/22 05:22 BUN 24 mg/dL (6-20) H 08/23/22 05:22 Creatinine 0.6 mg/dL (0.4-1.0) 08/23/22 05:22 Estimated GFR (MDRD) 96 (>89) 08/23/22 05:22 Glucose 177 mg/dL (70-100) H 08/23/22 05:22 Calcium 8.2 mg/dL (8.5-10.3) L 08/23/22 05:22 Phosphorus 2.6 mg/dL (2.5-4.6) 08/22/22 05:16 Magnesium 2.3 mg/dL (1.7-2.8) 08/22/22 18:26 Total Bilirubin 0.4 mg/dL (0.2-1.0) 08/17/22 05:34 AST 13 IU/L (10-42) 08/17/22 05:34 ALT 15 IU/L (10-60) 08/17/22 05:34 Alkaline Phosphatase 71 IU/L (42-121) 08/17/22 05:34 Total Creatine Kinase 16 IU/L (22-269) L 08/13/22 16:15 Troponin I High Sens 9.8 ng/L (2.3-14.8) 08/19/22 17:49 B-Natriuretic Peptide 246 pg/mL (5-100) H 08/18/22 08:05 Total Protein 6.0 g/dL (6.7-8.2) L 08/17/22 05:34 Albumin 2.4 g/dL (3.2-5.5) L 08/17/22 05:34 Globulin 3.6 g/dL (2.1-4.2) 08/17/22 05:34 Albumin/Globulin Ratio 0.7 (1.0-2.2) L 08/17/22 05:34 Triglycerides 68 mg/dL (-149) 08/14/22 05:04 Cholesterol 60 mg/dL (-199) 08/14/22 05:04 LDL Cholesterol, Calc 28 mg/dL (-129) 08/14/22 05:04 VLDL Cholesterol 14 mg/dL 08/14/22 05:04 HDL Cholesterol 18 mg/dL (60-) L 08/14/22 05:04 LDL/HDL Ratio 1.6 (<4.4) 08/14/22 05:04 Cholesterol/HDL Ratio 3.3 (<4.4) 08/14/22 05:04 Urine Color YELLOW 08/19/22 14:00 Urine Clarity CLOUDY (CLEAR) 08/19/22 14:00 Urine pH 5.5 PH (5.0-7.5) 08/19/22 14:00 Ur Specific [place] 1.025 (1.002-1.030) 08/19/22 14:00 Urine Protein 30 mg/dL (NEGATIVE) H 08/19/22 14:00 Urine Glucose (UA) NEGATIVE mg/dL (NEGATIVE) 08/19/22 14:00 Urine Ketones NEGATIVE mg/dL (NEGATIVE) 08/19/22 14:00 Urine Occult Blood SMALL (NEGATIVE) H 08/19/22 14:00 Urine Nitrite NEGATIVE (NEGATIVE) 08/19/22 14:00 Urine Bilirubin NEGATIVE (NEGATIVE) 08/19/22 14:00 Urine Urobilinogen 0.2 (NORMAL) E.U./dL (NORMAL) 08/19/22 14:00 Ur Leukocyte Esterase LARGE (NEGATIVE) H 08/19/22 14:00 Urine RBC 11-25 /HPF (0-5) H 08/19/22 14:00 Urine WBC >25 /HPF (0-5) H 08/19/22 14:00 Urine WBC Clumps Cancelled 08/19/22 10:40 Ur Epithelial Cells Cancelled 08/19/22 10:40 Ur Squamous Epith Cells RARE Squamous (<= Few) 08/19/22 14:00 Urine Crystals Cancelled 08/19/22 10:40 Amorphous Sediment Cancelled 08/19/22 10:40 Urine Bacteria Moderate /HPF (None Seen) H 08/19/22 14:00 Urine Casts Cancelled 08/19/22 10:40 Urine Starch Cancelled 08/19/22 10:40 Urine Mucus Cancelled 08/19/22 10:40 Urine Trichomonas Cancelled 08/19/22 10:40 Urine Yeast Cancelled 08/19/22 10:40 Urine Sperm Cancelled 08/19/22 10:40 Ur Oval Fat Bodies Cancelled 08/19/22 10:40 Ur Microscopic Review NOT INDICATED 08/13/22 17:52 Urine Culture Comments INDICATED 08/19/22 14:00 Nasal Screen MRSA (PCR) NEGATIVE (NEGATIVE) 08/19/22 16:35 Last Dose Date 08/20/22 08/20/22 14:16 Last Dose Time 1312 08/20/22 14:16 Vancomycin Peak 36.3 ug/mL (20.0-40.0) 08/20/22 14:16 Vancomycin Trough 14.6 ug/mL (10.0-20.0) 08/20/22 09:32 SARS-CoV-2 (PCR) NOT DETECTED 08/18/22 08:43 - Procedures Procedures: Procedures EXCISION OF CECUM, ENDO (03/24/19) EXCISION OF SIGMOID COLON, ENDO (03/24/19) EXCISION OF TRANSVERSE COLON, ENDO (03/24/19)
[2022-08-23] MEDS: MIRTAZAPINE 15 MG TABLET PO SCH (20:14)
[2022-08-23] MEDS: MONTELUKAST 10 MG TABLET PO SCH (20:14)
[2022-08-24] MEDS: SODIUM CHLORIDE FLUSH 0.9% 10 ML SYRINGE IVP SCH ×3 (00:28→16:28)
[2022-08-24] MEDS: metroNIDAZOLE 500 MG/100 ML 500 MG/100 ML BAG IV SCH ×3 (00:28→16:28)
[2022-08-24] MEDS: LEVALBUTEROL 1.25 MG/3 ML NEB INH SCH ×4 (00:30→15:43)
[2022-08-24] MEDS: BUDESONIDE 0.5 MG/2 ML NEB INH SCH ×2 (00:30→07:20)
[2022-08-24 04:56] LABS: BASOPHILS % (AUTO) 0.2 %; HCT - HEMATOCRIT 36.1 % (37.0-47.0); HGB - HEMOGLOBIN 11.2 g/dL (12.0-16.0); LYMPHOCYTES % (AUTO) 4.8 %; MEAN CORPUSCULAR HEMOGLOBIN 27.5 pg (27.0-31.0); MEAN CORPUSCULAR VOLUME 88.5 fL (81.0-99.0); MEAN PLATELET VOLUME 9.1 fL (7.9-10.8); NEUTROPHILS % (AUTO) 90.9 %; PLT - PLATELET COUNT 597 10^3/uL (130-450); RED BLOOD COUNT 4.08 10^6/uL (4.20-5.40); RED CELL DISTRIBUTION WIDTH 13.7 % (12.0-15.0); WHITE BLOOD COUNT 24.1 x10^3/uL (4.8-10.8)
[2022-08-24 04:59] LABS: ABNORMAL LYMPHS % (MANUAL) 0 %; BAND NEUTROPHILS % (MANUAL) 0 %
[2022-08-24 05:14] LABS: CALCIUM 7.9 mg/dL (8.5-10.3); CREATININE 0.7 mg/dL (0.4-1.0); POTASSIUM 3.8 mmol/L (3.5-5.0)
[2022-08-24 05:15] LABS: LYMPHOCYTES # (MANUAL) 1.4 10^3/uL (1.5-3.5); LYMPHOCYTES % (MANUAL) 6 %; NEUTROPHILS # (MANUAL) 21.7 10^3/uL (1.5-6.6)
[2022-08-24 05:16] LABS: DIFFERENTIAL COMMENT MANUAL DIFFERENTIAL; PLATELET ESTIMATE, MANUAL INCREASED (>450,000) (NORMAL); PLATELET MORPHOLOGY NORMAL APPEARANCE (NORMAL); RBC MORPHOLOGY (MULTIPLE) NORMAL APPEARANCE (NORMAL); WBC MORPHOLOGY (MULTIPLE) NORMAL APPEARANCE (NORMAL)
[2022-08-24] MEDS: methylPREDNISolone SUCCINATE 40 MG/ML VIAL IVP SCH ×3 (06:00→21:13)
[2022-08-24] MEDS: FAMOTIDINE 20 MG/2 ML VIAL IVP SCH ×2 (08:48→20:51)
[2022-08-24] MEDS: OMEGA-3 ACID ETHYL ESTERS 1 GM CAPSULE PO SCH ×2 (08:48→16:25)
[2022-08-24] MEDS: guaiFENesin 600 MG TABLET PO SCH ×2 (08:48→20:50)
[2022-08-24] MEDS: TAMSULOSIN 0.4 MG CAPSULE PO SCH (08:48)
[2022-08-24] MEDS: ENOXAPARIN 40 MG/0.4 ML SYRINGE SUBQ SCH (08:48)
[2022-08-24] MEDS: SACCHAROMYCES BOULARDII 250 MG CAPSULE PO SCH ×2 (08:49→16:25)
[2022-08-24] MEDS: ASPIRIN CHEW 81 MG TABLET PO SCH (08:49)
[2022-08-24] MEDS: MULTIVITAMIN W/MINERALS TABLET PO SCH (08:49)
[2022-08-24] MEDS: VANCOMYCIN INJ 1 GM in SODIUM CHLORIDE 0.9% 250 ML IV SCH (10:35)
[2022-08-24] MEDS: cefTRIAXone 2 GM in SODIUM CHLORIDE 0.9% MINIBAG 100 ML IV SCH (12:13)
[2022-08-24] MEDS: GABAPENTIN 100 MG CAPSULE PO SCH ×2 (14:08→20:50)
--- NOTE | 2022-08-24 15:53 | PROVIDER PROGRESS NOTE ---
Assessment/Plan - Problem List (1) Junctional bradycardia Assessment/Plan: Impression: On 08/19 the patient went into recurrent, brief episodes of junctional bradycardia with ventr rates of 10-30. She was transferred to the ICU. External pacer patches were put on as a precaution and the pacemaker device was moved into her ICU room, but she did not need to be externally paced. I put her on an Aminophylline continuous IV drip, to give her the desired side effect of a higher heart rate, for 24 hours Her labs were checked when she was transferred to the ICU. Her potassium was 5.5 which may have been the cause of the junctional bradycardia. The troponins were checked and EKG was done and these did not reveal an acute WI. Her Echo had been done earlier this admission which showed normal chamber sizes and normal LV and RV contractility. I stopped the Cardizem CD temporarily. Plan: About 12 hours after the aminophylline was stopped, yesterday her rhythm was normal sinus at 70-80. This afternoon she is going back into A-fib at 100-140 and I am restarting Cardizem po but at a lower dose She will be moved out of the ICU to [facility] on telemetry. (2) UTI Assessment/Plan: For the last several days she has had urinary retention and needed straight cath. On 08/19 a Paz catheter was inserted due to high volume on bladder scan. During that insertion she had white purulent urine drained. A urinalysis was sent off and this had many WBCs and many bacteria. That urine culture is growing nothing (probably because she had a partially treated UTI, from already being on cefepime for her pneumonia) All labs were reviewed. Her white count lucia, I suspect the persistently elevated WBC is from this newly found UTI Plan: I have kept her on her iv Cefepime, which had already been started for the HCAP (3) Acute urinary retention Assessment/Plan: For the last several nights the patient has had high residual on bladder s joy, showing urinary retention of 400-600. Straight caths were needed. I ordered a Paz insertion because of her severe shortness of breath even at rest, plus this urinary retention. The patient is on a bladder medication which has been continued here I suspect this acute UTI is what caused the urinary retention Plan: Cont Paz for now (4) Acute and chronic respiratory failure with hypoxia Assessment/Plan: Patient was more hypoxic several days ago and was only saturating 84%. She needed her supplemental O2 increased to an Oxymask as high as 8 L/min, then was able to titrate O2 down to 4L/min via Oxymask and now occiasional n.c. The work-up showed that she has a new pneumonia found ib CXR on her 3rd day here, and antibx were started after cx obtained. She was in new atrial flutter with RVR then too. All labs were reviewed. Troponins went from 7 to 20. I ordered her to be on oxy mask when she is asleep because she is a mouth breather Plan: Continue with empiric IV antibiotics to cover HCAP Await sputum and blood culture results Continue supplemental O2, target saturation is > 88% (5) HCAP (healthcare-associated pneumonia) Assessment/Plan: Her CXR on 08/17 showed a new RUL pneumonia. We obtained blood cx and sputum cx All labs were reviewed. Her white count lucia from 16.6 up to 27.7 w/ a L shift >> 27.6>> 25>> 25 today. I suspect the persistently elevated WBC is from that newly found UTI and now 2 days of iv steroid use Plan: Cont empiric antibx to cover a Healthcare-associated pneumonia: using IV vancomycin, and IV Cefepime. Cont Florastor Follow WBC August 22, 2022-sputum culture is growing E. coli so have DC'd vancomycin and kept her cefepime and added Flagyl for possibility of aspiration pneumonia August 23, 2022-sputum culture now is growing MRSA so have added back IV vancomyci -August 24, 2022 per pharmacy recommendations switching from cefepime to Rocephin which sensitivities of the culture show that is appropriate for the E. coli and will continue with IV vancomycin continue with IV Flagyl which was added for possibility of aspiration pneumonia also (6) COPD exacerbation Assessment/Plan: This new pneumonia had caused her to wheeze. She now has a COPD exacerbation. She still has wet phlegm in upper airway, and she only clears her throat, she seems to be too weak to cough it up. I started Montelukast q pm Because of very poor air movement on exam, I added Solu-Medrol 40 mg tid Plan: Cont Xopenex nebulized bronchodilators, Montelukast Cont Mucinex and Solumedrol I also ordered chest PT TID, for expectoration, if she can tolerate it (6) Atrial flutter with rapid ventricular response Assessment/Plan: The patient went into new A-fib spontaneously converted back to sinus rhythm, then went into atrial flutter with RVR on 08/17, when she was at her worst resp distress. After her morning Cardizem dose, she converted to NSR. Then she had Paroxysms of atrial flutter with 2-1 and 3-1 block for several days. Troponins went from 7 to 20, likely rate-related demand ischemia. Her BNP was mildly elevated 208>> 246 Earlier, she was already having short runs of PSVT, at rates of 115. She had an Echocardiogram done her 08/15, which showed normal LV size and function and normal RV size and function Plan: I will put a hold on her Cardizem CD, because of the junctional heather rhythm. Today heart rate is 100-140 so Cardizem CD will be resumed but not at 240 mg but at 120 mg. 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 We are still adjusting her heart rate meds actively Her [id number] score is 1, so Aspirin daily, not anticoagulant is indicated, and she is on ASA daily (7) Generalized weakness Assessment/Plan: The brain MRI showed only diffuse changes of atrophy, no evidence of old stroke or recent stroke. The patient does carry a diagnosis of polio, which may have given L>R leg weakness. On 08/17 her O2 sat was 83% at rest, while on n.c.so she was put boo oxymask. I ordered for patient to be put on suppl O2 via oxy mask whenever she is asleep or napping. She has been too tired to participate with rehab for several days On 08/18 I updated the visitors in the room, regarding her new pneumonia and her overall weakness. Renate confirmed that the pt has a very poor appetite and mostly eats cottage cheese and peaches, she also likes well cooked asparagus and chocolate pudding. Also that day Renate requested that I get a Neurology con sult. On 08/18, I called and spoke to the Neurologist on-call, and reviewed the entire case, including the 2 falls at home. This Neurologist said that I had done due diligence for this patient, and had no new recommendations. Today 08/21, I updated her son Sin from [employer], her biologic granddaughter Yvonne, the family friend Yolis, and Hortencia by phone, all at bedside in her room. Plan: Remain on lower gabapentin dose (300 mg tid was already decreased to 100 mg TID), and today I will decrease that to BID at 1300 & 2000 PT and OT to keep working with her, since she is deconditioned and felt too weak to do PT, the last 3 days. Our PT was recommending SNF for rehab. On 08/19, after being transferred to the ICU, her RN informed me that a daughter named Susan called from the [facility]. Apparently Renate had called Susan. The pt's RN Jesse received permission from Tiffany to talk to Susan. Susan said that Renate is not her daughter and not even an adopted daughter but that the patient just lives with Renate. The patient has 7 children who are scattered all over the [facility]. I then called Renate again and asked whether she is the adopted daughter legally or verbally and Renate said she is "verbally" an adopted daughter. I then corrected Renate and said that legally she is just considered a friend, if there is no legal paperwork for adoption. Renate confirmed that there are many children and the closest is Sin who lives in [facility] and he was to come to visit the patient. On 08/20, at bedside was the "adopted granddaughter" who said she is also the "sister of Renate". When I remarked that Renate is not a blood relative to Tiffany, then she said she "feels like she is a sister to Renate, because they are so close". I told her that medical legally she is just considered a friend. I will speak to Social Work about these family interactions and ask Social Work to establish if there is the DPOA and who are all the people that we are allowed to speak with, about the pt. Today 08/21, I updated her son Sin from [employer], her biologic granddaughter Yvonne, and the family friend Yolis, that medical legally if there is no one person designated as a DPOA, then all the current children (5 of 7 are alive), will need to agree on what we do, if the patient cannot make her own decisions (like she could not when she was obtunded and in junctional rhythm and was transferred to the ICU). (8) Fall at home Impression: Patient has a very bruised and mildly swollen left upper eyelid. That was the fall from several days ago. Following that she rolled out of bed 2 days later, landing on her left side she thinks. She complained of L sided pain s/p GLF and neck pain s/p GLF, in the ED. H/o recent L hip fracture s/p ORIF Her CSpine CT showed : DJD C1-C2, C5-C6, C6-C7 Her orthostatic vital signs reveal volume depletion, when checked the past several days. She received iv fluids for 2 days I restart Gabapentin at a lower dose of 100 mg TID not 300 mg TID She received 2 days of IV fluids, approximately 2 L positive in fluid balance. Chest x-ray today 08/17/2022 shows mild blunting of her costophrenic angles Plan: Since the patient has had recent orthostasis, I did not yet restarted her Lasix. Her IV fluids were stopped when BNP was noted to be elevated but I am resuming iv fluids today due to her poor po intake, D5W at 83.33 cc/hr. Remain on lower gabapentin dose (300 mg tid was decreased to 100 mg TID), and today I will decrease that to BID at 1300 & 2000 PT and OT rehab needs to continue (9) Severe protein calorie malnutrition The patient's BMI is only 17. She is cachectic, has temporal wasting and sunken eyes and diffuse muscle wasting and loss of subcutaneous fat. She screened for excessive weight loss, done by our [employer]: Has had nutritional intake of less than 50% for 2 weeks or more, and has lost 12% of her weight in 6 months. Her labs showed a LDL of 48 and an HDL of 18, and she was on a statin at home. I ordered a more liberalized diet with [employer] to take her meal choices I stopped her statin and will plan discharge off the statin. I started her on omega-3 tablet daily to increase her HDL On 08/18 I spoke to the daughter who was visiting in her room, who confirmed that her mother has a very poor appetite and mostly eats cottage cheese and peaches, she also likes well cooked asparagus and chocolate pudding. Today 08/21, when I asked what protein she eats, the family at bedside told me that she also likes peanut butter and hard-boiled eggs. Plan: I have added Boost to be given with all meals I will start Remeron to stimulate appetite. - Current Meds Current Meds: Current Medications Generic Name Dose Route Start Last Admin Trade Name Sugey PRN Reason Stop Dose Admin Aspirin 81 mg 08/14/22 09:00 08/24/22 08:49 Aspirin Chew 81 Mg Tablet PO 81 mg DAILY HENOK Administration Budesonide 0.5 mg 08/14/22 07:00 08/24/22 07:20 Budesonide 0.5 Mg/2 Ml Neb INH 0.5 mg RTBID HENOK Administration Enoxaparin Sodium 40 mg 08/14/22 09:00 08/24/22 08:48 Enoxaparin 40 Mg/0.4 Ml Syringe SUBQ 40 mg DAILY HENOK Administration Famotidine 20 mg 08/19/22 21:00 08/24/22 08:48 Famotidine 20 Mg/2 Ml Vial IVP 20 mg BID HENOK Administration Gabapentin 100 mg 08/21/22 13:00 08/24/22 14:08 Gabapentin 100 Mg Capsule PO 100 mg 1300,2000 HENOK Administration Guaifenesin 600 mg 08/17/22 10:00 08/24/22 08:48 Guaifenesin 600 Mg Tablet PO 600 mg BID HENOK Administration Metronidazole 500 mg in 100 mls @ 100 mls/hr 08/22/22 09:00 08/24/22 10:47 Flagyl 500 Mg/100 Ml IV Infused Q8H HENOK Infusion Vancomycin HCl 1 gm/ Sodium 250 mls @ 167 mls/hr 08/23/22 11:00 08/24/22 12:15 Chloride IV Infused Q24H HENOK Infusion Ceftriaxone Sodium 2 gm/ 100 mls @ 200 mls/hr 08/24/22 11:00 08/24/22 12:53 Sodium Chloride IV Infused DAILY HENOK Infusion Levalbuterol HCl 1.25 mg 08/17/22 14:59 08/24/22 15:43 Levalbuterol 1.25 Mg/3 Ml Neb INH 1.25 mg RTQID HENOK Administration Methylprednisolone 40 mg 08/19/22 10:00 08/24/22 14:08 Methylprednisolone Succinate 40 Mg/Ml Vial IVP 40 mg TID HENOK Administration Metoprolol Tartrate 5 mg 08/22/22 12:37 08/22/22 13:10 Metoprolol 5 Mg/5 Ml Vial IVP 5 mg Q6H PRN Administration HR>110 Mirtazapine 15 mg 08/21/22 21:00 08/23/22 20:14 Mirtazapine 15 Mg Tablet PO 15 mg QPM HENOK Administration Montelukast Sodium 10 mg 08/19/22 21:00 08/23/22 20:14 Montelukast 10 Mg Tablet PO 10 mg QPM HENOK Administration Morphine Sulfate 2 mg 08/19/22 09:12 08/22/22 12:15 Morphine 2 Mg/Ml Carpuject IVP 2 mg Q4HR PRN Administration Dyspnea Multivitamins/Minerals 1 tab 08/15/22 17:00 08/24/22 08:49 Multivitamin W/Minerals Tablet PO 1 tab DAILYWM HENOK Administration Pquwh-3-Knlv Ethyl Esters 1 gm 08/20/22 17:00 08/24/22 08:48 [place]-3 Acid Ethyl Esters 1 Gm Capsule PO 1 gm BIDWM HENOK Administration Saccharomyces Boulardii 250 mg 08/17/22 17:00 08/24/22 08:49 Saccharomyces Boulardii 250 Mg Capsule PO 250 mg BIDWM HENOK Administration Sodium Chloride 10 ml 08/13/22 19:43 08/21/22 22:09 Sodium Chloride Flush 0.9% 10 Ml Syringe IVP 10 ml PRN PRN Administration NEEDED PER PROVIDER ORDERS Sodium Chloride 10 ml 08/14/22 01:00 08/24/22 08:49 Sodium Chloride Flush 0.9% 10 Ml Syringe IVP 10 ml 0100,0900,1700 HENOK Administration Tamsulosin HCl 0.4 mg 08/15/22 09:00 08/24/22 08:48 Tamsulosin 0.4 Mg Capsule PO 0.4 mg DAILY HENOK Administration - Lab Result Fish Bone Diagrams: 08/24/22 04:40 08/24/22 04:40 - Additional Planning My Orders: My Active Orders 08/24/22 11:00 cefTRIAXone [Rocephin] 2 gm Sodium Chloride 0.9% Minibag [Normal Saline 0.9% Minibag] 100 ml IV DAILY 08/25/22 05:00 CBC - COMP BLD CT W/AUTO DIFF [HEME] DAILYLAB CMP [COMPREHENSIVE METABOLIC PANEL] [CHEM] Timed 08/26/22 05:00 BMP - BASIC METABOLIC PANEL [CHEM] DAILYLAB CBC - COMP BLD CT W/AUTO DIFF [HEME] DAILYLAB 08/27/22 05:00 CBC - COMP BLD CT W/AUTO DIFF [HEME] DAILYLAB 08/28/22 05:00 CBC - COMP BLD CT W/AUTO DIFF [HEME] DAILYLAB 08/29/22 05:00 CBC - COMP BLD CT W/AUTO DIFF [HEME] DAILYLAB 08/30/22 05:00 CBC - COMP BLD CT W/AUTO DIFF [HEME] DAILYLAB Subjective - Subjective Patient Reports: Other (Patient very interactive today and responds to things appropriately.) Objective Vital Signs: Vital Signs - 24 hr 08/23/22 08/23/22 08/24/22 16:10 20:39 00:25 Temperature 36.5 C 36.5 C 36.3 C L Heart Rate Heart Rate [ 79 89 81 Brachial] Respiratory 20 24 20 Rate Blood Pressure 152/87 H 152/88 H 150/76 H [Right Brachial artery] O2 Saturation 92 94 93 08/24/22 08/24/22 08/24/22 00:30 04:37 07:24 Temperature 36.2 C L Heart Rate 98 84 Heart Rate [ 83 Brachial] Respiratory 24 22 17 Rate Blood Pressure 132/74 H [Right Brachial artery] O2 Saturation 93 08/24/22 08/24/22 08/24/22 09:00 11:23 13:00 Temperature 36.3 C L 36.4 C L Heart Rate 58 L Heart Rate [ 96 92 Brachial] Respiratory 20 18 20 Rate Blood Pressure 143/79 H 142/72 H [Right Brachial artery] O2 Saturation 94 94 Oxygen O2 Source Room air I&O (Last 24 Hrs): Intake and Output Totals x24h 08/22/22 08/23/22 08/24/22 23:59 23:59 23:59 Intake Total 0163.751 9894.852 700 Output Total 313 0660 1823 Balance 1263.383 -1194.148 -1125 General: Alert, Oriented x3, Cooperative HEENT: Atraumatic Neck: Supple Neuro: Alert Cardiovascular: Regular rate, Normal S1, Normal S2 Respiratory: No respiratory distress Abdomen: Soft Skin: No rashes - Results Results: Laboratory Results WBC 24.1 x10^3/uL (4.8-10.8) H 08/24/22 04:40 RBC 4.08 10^6/uL (4.20-5.40) L 08/24/22 04:40 Hgb 11.2 g/dL (12.0-16.0) L 08/24/22 04:40 Hct 36.1 % (37.0-47.0) L 08/24/22 04:40 MCV 88.5 fL (81.0-99.0) 08/24/22 04:40 MCH 27.5 pg (27.0-31.0) 08/24/22 04:40 MCHC 31.0 g/dL (32.0-36.0) L 08/24/22 04:40 RDW 13.7 % (12.0-15.0) 08/24/22 04:40 Plt Count 597 10^3/uL (130-450) H 08/24/22 04:40 MPV 9.1 fL (7.9-10.8) 08/24/22 04:40 Neut # (Auto) Not Reportable 08/24/22 04:40 Lymph # (Auto) Not Reportable 08/24/22 04:40 [place] # (Auto) Not Reportable 08/24/22 04:40 Eos # (Auto) Not Reportable 08/24/22 04:40 Baso # (Auto) Not Reportable 08/24/22 04:40 Absolute Nucleated RBC Not Reportable 08/24/22 04:40 Total Counted 100 08/24/22 04:40 Band Neuts % (Manual) 0 % (0-10) 08/24/22 04:40 Reactive Lymphs % (Man) 2 % 08/21/22 07:41 Abnorm Lymph % (Manual) 0 % 08/24/22 04:40 Nucleated RBC % Not Reportable 08/24/22 04:40 Neutrophils # (Manual) 21.7 10^3/uL (1.5-6.6) H 08/24/22 04:40 Lymphocytes # (Manual) 1.4 10^3/uL (1.5-3.5) L 08/24/22 04:40 Monocytes # (Manual) 1.0 10^3/uL (0.0-1.0) 08/24/22 04:40 Eosinophils # (Manual) 0.0 10^3/uL (0-0.7) 08/24/22 04:40 Basophils # (Manual) 0.0 10^3/uL (0-0.1) 08/24/22 04:40 Differential Comment MANUAL DIFFERENTIAL 08/24/22 04:40 Manual Slide Review Indicated 08/13/22 16:15 WBC Morphology NORMAL APPEARANCE (NORMAL) 08/24/22 04:40 Platelet Estimate INCREASED (>450,000) (NORMAL) 08/24/22 04:40 Platelet Morphology NORMAL APPEARANCE (NORMAL) 08/24/22 04:40 RBC Morph Micro Appear NORMAL APPEARANCE (NORMAL) 08/24/22 04:40 Bld Gas Analysis Time 0543 08/17/22 05:40 Sample Site RIGHT RADIAL 08/17/22 05:40 ABG pH 7.38 (7.35-7.45) 08/17/22 05:40 ABG pCO2 59 mmHg (34-45) H 08/17/22 05:40 ABG pO2 138 mmHg (80-100) H 08/17/22 05:40 ABG HCO3 34.0 mmol/L (22.0-26.0) H 08/17/22 05:40 ABG Total CO2 35.8 MMOL/L (21.0-29.0) H 08/17/22 05:40 ABG O2 Saturation 99 % (94-98) H 08/17/22 05:40 ABG Base Excess 7.0 mmol/L (-2.0-3.0) H 08/17/22 05:40 Migue Test POSITIVE 08/17/22 05:40 VBG pH 7.288 (7.31-7.41) L 08/22/22 05:16 Ionized Calcium 1.21 mmol/L (1.15-1.33) 08/22/22 05:16 O2 Delivery Device OXYMASK 08/17/22 05:40 O2 Liters/Min 6.00 LPM 08/17/22 05:40 FiO2 44.00 08/17/22 05:40 Sodium 137 mmol/L (135-145) 08/24/22 04:40 Potassium 3.8 mmol/L (3.5-5.0) 08/24/22 04:40 Chloride 101 mmol/L (101-111) 08/24/22 04:40 Carbon Dioxide 30 mmol/L (21-32) 08/24/22 04:40 Anion Gap 6.0 (6-13) 08/24/22 04:40 BUN 24 mg/dL (6-20) H 08/24/22 04:40 Creatinine 0.7 mg/dL (0.4-1.0) 08/24/22 04:40 Estimated GFR (MDRD) 80 (>89) L 08/24/22 04:40 Glucose 161 mg/dL (70-100) H 08/24/22 04:40 Calcium 7.9 mg/dL (8.5-10.3) L 08/24/22 04:40 Phosphorus 2.6 mg/dL (2.5-4.6) 08/22/22 05:16 Magnesium 2.3 mg/dL (1.7-2.8) 08/22/22 18:26 Total Bilirubin 0.4 mg/dL (0.2-1.0) 08/17/22 05:34 AST 13 IU/L (10-42) 08/17/22 05:34 ALT 15 IU/L (10-60) 08/17/22 05:34 Alkaline Phosphatase 71 IU/L (42-121) 08/17/22 05:34 Total Creatine Kinase 16 IU/L (22-269) L 08/13/22 16:15 Troponin I High Sens 9.8 ng/L (2.3-14.8) 08/19/22 17:49 B-Natriuretic Peptide 246 pg/mL (5-100) H 08/18/22 08:05 Total Protein 6.0 g/dL (6.7-8.2) L 08/17/22 05:34 Albumin 2.4 g/dL (3.2-5.5) L 08/17/22 05:34 Globulin 3.6 g/dL (2.1-4.2) 08/17/22 05:34 Albumin/Globulin Ratio 0.7 (1.0-2.2) L 08/17/22 05:34 Triglycerides 68 mg/dL (-149) 08/14/22 05:04 Cholesterol 60 mg/dL (-199) 08/14/22 05:04 LDL Cholesterol, Calc 28 mg/dL (-129) 08/14/22 05:04 VLDL Cholesterol 14 mg/dL 08/14/22 05:04 HDL Cholesterol 18 mg/dL (60-) L 08/14/22 05:04 LDL/HDL Ratio 1.6 (<4.4) 08/14/22 05:04 Cholesterol/HDL Ratio 3.3 (<4.4) 08/14/22 05:04 Urine Color YELLOW 08/19/22 14:00 Urine Clarity CLOUDY (CLEAR) 08/19/22 14:00 Urine pH 5.5 PH (5.0-7.5) 08/19/22 14:00 Ur Specific [place] 1.025 (1.002-1.030) 08/19/22 14:00 Urine Protein 30 mg/dL (NEGATIVE) H 08/19/22 14:00 Urine Glucose (UA) NEGATIVE mg/dL (NEGATIVE) 08/19/22 14:00 Urine Ketones NEGATIVE mg/dL (NEGATIVE) 08/19/22 14:00 Urine Occult Blood SMALL (NEGATIVE) H 08/19/22 14:00 Urine Nitrite NEGATIVE (NEGATIVE) 08/19/22 14:00 Urine Bilirubin NEGATIVE (NEGATIVE) 08/19/22 14:00 Urine Urobilinogen 0.2 (NORMAL) E.U./dL (NORMAL) 08/19/22 14:00 Ur Leukocyte Esterase LARGE (NEGATIVE) H 08/19/22 14:00 Urine RBC 11-25 /HPF (0-5) H 08/19/22 14:00 Urine WBC >25 /HPF (0-5) H 08/19/22 14:00 Urine WBC Clumps Cancelled 08/19/22 10:40 Ur Epithelial Cells Cancelled 08/19/22 10:40 Ur Squamous Epith Cells RARE Squamous (<= Few) 08/19/22 14:00 Urine Crystals Cancelled 08/19/22 10:40 Amorphous Sediment Cancelled 08/19/22 10:40 Urine Bacteria Moderate /HPF (None Seen) H 08/19/22 14:00 Urine Casts Cancelled 08/19/22 10:40 Urine Starch Cancelled 08/19/22 10:40 Urine Mucus Cancelled 08/19/22 10:40 Urine Trichomonas Cancelled 08/19/22 10:40 Urine Yeast Cancelled 08/19/22 10:40 Urine Sperm Cancelled 08/19/22 10:40 Ur Oval Fat Bodies Cancelled 08/19/22 10:40 Ur Microscopic Review NOT INDICATED 08/13/22 17:52 Urine Culture Comments INDICATED 08/19/22 14:00 Nasal Screen MRSA (PCR) NEGATIVE (NEGATIVE) 08/19/22 16:35 Last Dose Date 08/20/22 08/20/22 14:16 Last Dose Time 1312 08/20/22 14:16 Vancomycin Peak 36.3 ug/mL (20.0-40.0) 08/20/22 14:16 Vancomycin Trough 14.6 ug/mL (10.0-20.0) 08/20/22 09:32 SARS-CoV-2 (PCR) NOT DETECTED 08/18/22 08:43 - Procedures Procedures: Procedures EXCISION OF CECUM, ENDO (03/24/19) EXCISION OF SIGMOID COLON, ENDO (03/24/19) EXCISION OF TRANSVERSE COLON, ENDO (03/24/19)
[2022-08-24] MEDS: MONTELUKAST 10 MG TABLET PO SCH (20:50)
[2022-08-24] MEDS: MIRTAZAPINE 15 MG TABLET PO SCH (20:51)
[2022-08-25] MEDS: metroNIDAZOLE 500 MG/100 ML 500 MG/100 ML BAG IV SCH ×3 (00:16→20:13)
[2022-08-25] MEDS: SODIUM CHLORIDE FLUSH 0.9% 10 ML SYRINGE IVP SCH ×3 (02:46→20:14)
[2022-08-25] MEDS: BUDESONIDE 0.5 MG/2 ML NEB INH SCH ×3 (03:39→19:25)
[2022-08-25] MEDS: LEVALBUTEROL 1.25 MG/3 ML NEB INH SCH ×5 (03:39→19:25)
[2022-08-25] MEDS: methylPREDNISolone SUCCINATE 40 MG/ML VIAL IVP SCH (05:31)
[2022-08-25 07:27] LABS: BASOPHILS % (AUTO) 0.2 %; HCT - HEMATOCRIT 37.8 % (37.0-47.0); LYMPHOCYTES # (AUTO) 1.1 10^3/uL (1.5-3.5); LYMPHOCYTES % (AUTO) 5.4 %; MEAN CORPUSCULAR HEMOGLOBIN 27.9 pg (27.0-31.0); MEAN CORPUSCULAR HGB CONC 31.7 g/dL (32.0-36.0); MEAN CORPUSCULAR VOLUME 87.9 fL (81.0-99.0); MEAN PLATELET VOLUME 9.7 fL (7.9-10.8); MONOCYTES # (AUTO) 0.5 10^3/uL (0.0-1.0); MONOCYTES % (AUTO) 2.7 %; NEUTROPHILS # (AUTO) 17.4 10^3/uL (1.5-6.6); NEUTROPHILS % (AUTO) 88.3 %; PLT - PLATELET COUNT 551 10^3/uL (130-450); RED CELL DISTRIBUTION WIDTH 13.9 % (12.0-15.0); WHITE BLOOD COUNT 19.7 x10^3/uL (4.8-10.8)
[2022-08-25 07:33] LABS: ALBUMIN 2.1 g/dL (3.2-5.5); ALBUMIN/GLOBULIN RATIO 0.6 (1.0-2.2); BILIRUBIN,TOTAL 0.5 mg/dL (0.2-1.0); CREATININE 0.7 mg/dL (0.4-1.0); SLIDE REVIEW? Indicated; TOTAL PROTEIN 5.5 g/dL (6.7-8.2)
[2022-08-25 07:55] LABS: RBC MORPHOLOGY (MULTIPLE) 2+ ANISOCYTOSIS (NORMAL)
[2022-08-25] MEDS: cefTRIAXone 2 GM in SODIUM CHLORIDE 0.9% MINIBAG 100 ML IV SCH (08:44)
[2022-08-25] MEDS: FAMOTIDINE 20 MG/2 ML VIAL IVP SCH (08:48)
[2022-08-25] MEDS: TAMSULOSIN 0.4 MG CAPSULE PO SCH (08:50)
[2022-08-25] MEDS: MULTIVITAMIN W/MINERALS TABLET PO SCH (08:50)
[2022-08-25] MEDS: SACCHAROMYCES BOULARDII 250 MG CAPSULE PO SCH ×2 (08:50→17:10)
[2022-08-25] MEDS: ASPIRIN CHEW 81 MG TABLET PO SCH (08:51)
[2022-08-25] MEDS: OMEGA-3 ACID ETHYL ESTERS 1 GM CAPSULE PO SCH ×2 (08:51→17:10)
[2022-08-25] MEDS: ENOXAPARIN 40 MG/0.4 ML SYRINGE SUBQ SCH (08:51)
[2022-08-25] MEDS: guaiFENesin 600 MG TABLET PO SCH ×2 (08:51→20:13)
[2022-08-25] MEDS: GABAPENTIN 100 MG CAPSULE PO SCH ×2 (13:19→20:13)
[2022-08-25] MEDS: VANCOMYCIN INJ 1 GM in SODIUM CHLORIDE 0.9% 250 ML IV SCH (13:44)
--- NOTE | 2022-08-25 15:51 | PROVIDER PROGRESS NOTE ---
Assessment/Plan - Problem List (1) Junctional bradycardia Assessment/Plan: Assessment/Plan: Impression: On 08/19 the patient went into recurrent, brief episodes of junctional bradycardia with ventr rates of 10-30. She was transferred to the ICU. External pacer patches were put on as a precaution and the pacemaker device was moved into her ICU room, but she did not need to be externally paced. I put her on an Aminophylline continuous IV drip, to give her the desired side effect of a higher heart rate, for 24 hours Her labs were checked when she was transferred to the ICU. Her potassium was 5.5 which may have been the cause of the junctional bradycardia. The troponins were checked and EKG was done and these did not reveal an acute SD. Her Echo had been done earlier this admission which showed normal chamber sizes and normal LV and RV contractility. I stopped the Cardizem CD temporarily. Plan: About 12 hours after the aminophylline was stopped, yesterday her rhythm was normal sinus at 70-80. This afternoon she is going back into A-fib at 100-140 and I am restarting Cardizem po but at a lower dose She will be moved out of the ICU to [facility] on telemetry. (2) UTI Assessment/Plan: For the last several days she has had urinary retention and needed straight cath. On 08/19 a Paz catheter was inserted due to high volume on bladder scan. During that insertion she had white purulent urine drained. A urinalysis was sent off and this had many WBCs and many bacteria. That urine culture is growing nothing (probably because she had a partially treated UTI, from already being on cefepime for her pneumonia) All labs were reviewed. Her white count lucia, I suspect the persistently elevated WBC is from this newly found UTI Plan: I have kept her on her iv Cefepime, which had already been started for the HCAP (3) Acute urinary retention Assessment/Plan: For the last several nights the patient has had high residual on bladder scanning, showing urinary retention of 400-600. Straight caths were needed. I ordered a Paz insertion because of her severe shortness of breath even at rest, plus this urinary retention. The patient is on a bladder medication which has been continued here I suspect this acute UTI is what caused the urinary retention Plan: Cont Paz for now (4) Acute and chronic respiratory failure with hypoxia Assessment/Plan: Patient was more hypoxic several days ago and was only saturating 84%. She needed her supplemental O2 increased to an Oxymask as high as 8 L/min, then was able to titrate O2 down to 4L/min via Oxymask and now occiasional n.c. The work-up showed that she has a new pneumonia found ib CXR on her 3rd day here, and antibx were started after cx obtained. She was in new atrial flutter with RVR then too. All labs were reviewed. Troponins went from 7 to 20. I ordered her to be on oxy mask when she is asleep because she is a mouth breather Plan: Continue with empiric IV antibiotics to cover HCAP Await sputum and blood culture results Continue supplemental O2, target saturation is > 88% (5) HCAP (healthcare-associated pneumonia) Assessment/Plan: Her CXR on 08/17 showed a new RUL pneumonia. We obtained blood cx and sputum cx All labs were reviewed. Her white count lucia from 16.6 up to 27.7 w/ a L shift>> 27.6>> 25>> 25 today. I suspect the persistently elevated WBC is from that newly found UTI and now 2 days of iv steroid use Plan: Cont empiric antibx to cover a Healthcare-associated pneumonia: using IV vancomycin, and IV Cefepime. Cont Florastor Follow WBC August 22, 2022-sputum culture is growing E. coli so have DC'd vancomycin and kept her cefepime and added Flagyl for possibility of aspiration pneumonia August 23, 2022-sputum culture now is growing MRSA so have added back IV vancomyci -August 24, 2022 per pharmacy recommendations switching from cefepime to Rocephin which sensitivities of the culture show that is appropriate for the E. coli and will continue with IV vancomycin continue with IV Flagyl which was added for possibility of aspiration pneumonia also August 25, 2022-patient seems much more alert responsive and more active continue antibiotic regimen for at least a total of 7 days with this regimen given her sputum showing E. coli and MRSA (6) COPD exacerbation Assessment/Plan: This new pneumonia had caused her to wheeze. She now has a COPD exacerbation. She still has wet phlegm in upper airway, and she only clears her throat, she seems to be too weak to cough it up. I started Montelukast q pm Because of very poor air movement on exam, I added Solu-Medrol 40 mg tid Plan: Cont Xopenex nebulized bronchodilators, Montelukast Cont Mucinex and Solumedrol I also ordered chest PT TID, for expectoration, if she can tolerate it (6) Atrial flutter with rapid ventricular response Assessment/Plan: The patient went into new A-fib spontaneously converted back to sinus rhythm, then went into atrial flutter with RVR on 08/17, when she was at her worst resp distress. After her morning Cardizem dose, she converted to NSR. Then she had Paroxysms of atrial flutter with 2-1 and 3-1 block for several days. Troponins went from 7 to 20, likely rate-related demand ischemia. Her BNP was mildly elevated 208>> 246 Earlier, she was already having short runs of PSVT, at rates of 115. She had an Echocardiogram done her 08/15, which showed normal LV size and function and normal RV size and function Plan: I will put a hold on her Cardizem CD, because of the junctional heather rhythm. Today heart rate is 100-140 so Cardizem CD will be resumed but not at 240 mg but at 120 mg. 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 We are still adjusting her heart rate meds actively Her [id number] score is 1, so Aspirin daily, not anticoagulant is indicated, and she is on ASA daily (7) Generalized weakness Assessment/Plan: The brain MRI showed only diffuse changes of atrophy, no evidence of old stroke or recent stroke. The patient does carry a diagnosis of polio, which may have given L>R leg weakness. On 08/17 her O2 sat was 83% at rest, while on n.c.so she was put boo oxymask. I ordered for patient to be put on suppl O2 via oxy mask whenever she is asleep or napping. She has been too tired to participate with rehab for several days On 08/18 I updated the visitors in the room, regarding her new pneumonia and her overall weakness. Renate confirmed that the pt has a very poor appetite and mostly eats cottage cheese and peaches, she also likes well cooked asparagus and chocolate pudding. Also that day Renate requested that I get a Neurology consult. On 08/18, I called and spoke to the Neurologist on-call, and reviewed the entire case, including the 2 falls at home. This Neurologist said that I had done due diligence for this patient, and had no new recommendations. Today 08/21, I updated her son Sin from [place], her biologic granddaughter Yvonne, the family friend Yolis, and Hortencia by phone, all at bedside in her room. Plan: Remain on lower gabapentin dose (300 mg tid was already decreased to 100 mg TID), and today I will decrease that to BID at 1300 & 2000 PT and OT to keep working with her, since she is deconditioned and felt too weak to do PT, the last 3 days. Our PT was recommending SNF for rehab. On 08/19, after being transferred to the ICU, her RN informed me that a daughter named Susan called from the [facility]. Apparently Renate had called Susan. The pt's RN Jesse received permission from [employer] to talk to Susan. Susan said that Renate is not her daughter and not even an adopted daughter but that the patient just lives with Renate. The patient has 7 children who are scattered all over [facility]. I then called Renate again and asked whether she is the adopted daughter legally or verbally and Renate said she is "verbally" an adopted daughter. I then corrected Renate and said that legally she is just considered a friend, if there is no legal paperwork for adoption. Renate confirmed that there are many children and the closest is Sin who lives in [facility] and he was to come to visit the patient. On 08/20, at bedside was the "adopted granddaughter" who said she is also the "sister of Renate". When I remarked that Renate is not a blood relative to Tiffany, then she said she "feels like she is a sister to Renate, because they are so close". I told her that medical legally she is just considered a friend. I will speak to Social Work about these family interactions and ask Social Work to establish if there is the DPOA and who are all the people that we are allowed to speak with, about the pt. Today 08/21, I updated her son Sin from [place], her biologic granddaughter Yvonne, and the family friend Yolis, that medical legally if there is no one person designated as a DPOA, then all the current children (5 of 7 are alive), will need to agree on what we do, if the patient cannot make her own decisions (like she could not when she was obtunded and in junctional rhythm and was transferred to the ICU). (8) Fall at home Impression: Patient has a very bruised and mildly swollen left upper eyelid. That was the fall from several days ago. Following that she rolled out of bed 2 days later, landing on her left side she thinks. She complained of L sided pain s/p GLF and neck pain s/p GLF, in the ED. H/o recent L hip fracture s/p ORIF Her CSpine CT showed : DJD C1-C2, C5-C6, C6-C7 Her orthostatic vital signs reveal volume depletion, when checked the past several days. She received iv fluids for 2 days I restart Gabapentin at a lower dose of 100 mg TID not 300 mg TID She received 2 days of IV fluids, approximately 2 L positive in fluid balance. Chest x-ray today 08/17/2022 shows mild blunting of her costophrenic angles Plan: Since the patient has had recent orthostasis, I did not yet restarted her Lasix. Her IV fluids were stopped when BNP was noted to be elevated but I am resuming iv fluids today due to her poor po intake, D5W at 83.33 cc/hr. Remain on lower gabapentin dose (300 mg tid was decreased to 100 mg TID), and today I will decrease that to BID at 1300 & 2000 PT and OT rehab needs to continue (9) Severe protein calorie malnutrition The patient's BMI is only 17. She is cachectic, has temporal wasting and sunken eyes and diffuse muscle wasting and loss of subcutaneous fat. She screened for excessive weight loss, done by our Chairman Emeritus: Has had nutritional intake of less than 50% for 2 weeks or more, and has lost 12% of her weight in 6 months. Her labs showed a LDL of 48 and an HDL of 18, and she was on a statin at home. I ordered a more liberalized diet with Chairman Emeritus to take her meal choices I stopped her statin and will plan discharge off the statin. I started her on omega-3 tablet daily to increase her HDL On 6/2 I spoke to the daughter who was visiting in her room, who confirmed that her mother has a very poor appetite and mostly eats cottage cheese and peaches, she also likes well cooked asparagus and chocolate pudding. Today 08/21, when I asked what protein she eats, the family at bedside told me that she also likes peanut butter and hard-boiled eggs. Plan: I have added Boost to be given with all meals I will start Remeron to stimulate appetite. August 25, 2022-patient has significantly improved appetite and ate her food better than she has in the recent past. - Current Meds Current Meds: Current Medications Generic Name Dose Route Start Last Admin Trade Name Sugey PRN Reason Stop Dose Admin Aspirin 81 mg 08/14/22 09:00 08/25/22 08:51 Aspirin Chew 81 Mg Tablet PO 81 mg DAILY HENOK Administration Budesonide 0.5 mg 08/14/22 07:00 08/25/22 05:20 Budesonide 0.5 Mg/2 Ml Neb INH 0.5 mg RTBID HENOK Administration Enoxaparin Sodium 40 mg 08/14/22 09:00 08/25/22 08:51 Enoxaparin 40 Mg/0.4 Ml Syringe SUBQ 40 mg DAILY HENOK Administration Gabapentin 100 mg 08/21/22 13:00 08/25/22 13:19 Gabapentin 100 Mg Capsule PO 100 mg 1300,2000 HENOK Administration Guaifenesin 600 mg 08/17/22 10:00 08/25/22 08:51 Guaifenesin 600 Mg Tablet PO 600 mg BID HENOK Administration Ceftriaxone Sodium 2 gm/ 100 mls @ 200 mls/hr 08/24/22 11:00 08/25/22 13:51 Sodium Chloride IV Infused DAILY HENOK Infusion Metronidazole 500 mg in 100 mls @ 100 mls/hr 08/25/22 12:00 08/25/22 13:48 Flagyl 500 Mg/100 Ml IV Infused Q8H HENOK Infusion Vancomycin HCl 1 gm/ Sodium 250 mls @ 167 mls/hr 08/25/22 13:00 08/25/22 13:44 Chloride IV 167 mls/hr Q24H HENOK Administration Levalbuterol HCl 1.25 mg 08/17/22 14:59 08/25/22 14:58 Levalbuterol 1.25 Mg/3 Ml Neb INH 1.25 mg RTQID HENOK Administration Metoprolol Tartrate 5 mg 08/22/22 12:37 08/22/22 13:10 Metoprolol 5 Mg/5 Ml Vial IVP 5 mg Q6H PRN Administration HR>110 Mirtazapine 15 mg 08/21/22 21:00 08/24/22 20:51 Mirtazapine 15 Mg Tablet PO 15 mg QPM HENOK Administration Montelukast Sodium 10 mg 08/19/22 21:00 08/24/22 20:50 Montelukast 10 Mg Tablet PO 10 mg QPM HENOK Administration Morphine Sulfate 2 mg 08/19/22 09:12 08/22/22 12:15 Morphine 2 Mg/Ml Carpuject IVP 2 mg Q4HR PRN Administration Dyspnea Multivitamins/Minerals 1 tab 08/15/22 17:00 08/25/22 08:50 Multivitamin W/Minerals Tablet PO 1 tab DAILYWM HENOK Administration Virmy-4-Sltn Ethyl Esters 1 gm 08/20/22 17:00 08/25/22 08:51 [place]-3 Acid Ethyl Esters 1 Gm Capsule PO 1 gm BIDWM HENOK Administration Saccharomyces Boulardii 250 mg 08/17/22 17:00 08/25/22 08:50 Saccharomyces Boulardii 250 Mg Capsule PO 250 mg BIDWM HENOK Administration Sodium Chloride 10 ml 08/13/22 19:43 08/21/22 22:09 Sodium Chloride Flush 0.9% 10 Ml Syringe IVP 10 ml PRN PRN Administration NEEDED PER PROVIDER ORDERS Sodium Chloride 10 ml 08/14/22 01:00 08/25/22 08:48 Sodium Chloride Flush 0.9% 10 Ml Syringe IVP 10 ml 0100,0900,1700 HENOK Administration Tamsulosin HCl 0.4 mg 08/15/22 09:00 08/25/22 08:50 Tamsulosin 0.4 Mg Capsule PO 0.4 mg DAILY HENOK Administration - Lab Result Fish Bone Diagrams: 08/25/22 07:15 08/25/22 07:15 - Additional Planning My Orders: My Active Orders 08/25/22 12:00 metroNIDAZOLE 500 MG/100 ML [Flagyl 500 mg/100 ml] 500 mg in 100 ml IV Q8H 08/26/22 05:00 BMP - BASIC METABOLIC PANEL [CHEM] DAILYLAB CBC - COMP BLD CT W/AUTO DIFF [HEME] DAILYLAB 08/27/22 05:00 CBC - COMP BLD CT W/AUTO DIFF [HEME] DAILYLAB 08/28/22 05:00 CBC - COMP BLD CT W/AUTO DIFF [HEME] DAILYLAB 08/29/22 05:00 CBC - COMP BLD CT W/AUTO DIFF [HEME] DAILYLAB 08/30/22 05:00 CBC - COMP BLD CT W/AUTO DIFF [HEME] DAILYLAB Objective Vital Signs: Vital Signs - 24 hr 08/24/22 08/24/22 08/24/22 15:49 16:10 20:08 Temperature 36.6 C 36.5 C Heart Rate 93 Heart Rate [ 97 85 Brachial] Heart Rate [ Monitoring electrodes] Respiratory 21 20 24 Rate Blood Pressure 140/59 H 108/85 H [Right Brachial artery] O2 Saturation 92 93 08/25/22 08/25/22 08/25/22 00:11 05:00 05:20 Temperature 36.4 C L 36.4 C L Heart Rate 92 Heart Rate [ 79 Brachial] Heart Rate [ 83 Monitoring electrodes] Respiratory 20 20 20 Rate Blood Pressure 147/83 H 156/85 H [Right Brachial artery] O2 Saturation 95 92 08/25/22 08/25/22 08/25/22 08:00 10:36 13:00 Temperature 36.5 C 36.5 C Heart Rate 78 Heart Rate [ 88 116 H Brachial] Heart Rate [ Monitoring electrodes] Respiratory 18 16 22 Rate Blood Pressure 162/76 H 144/73 H [Right Brachial artery] O2 Saturation 91 L 91 L 08/25/22 14:59 Temperature Heart Rate 78 Heart Rate [ Brachial] Heart Rate [ Monitoring electrodes] Respiratory 17 Rate Blood Pressure [Right Brachial artery] O2 Saturation Oxygen O2 Source Room air I&O (Last 24 Hrs): Intake and Output Totals x24h 08/23/22 08/24/22 08/25/22 23:59 23:59 23:59 Intake Total 6192.923 8312 780.000 Output Total 3150 2225 1950 Balance -1194.148 -1105 -1170.000 General: Alert, Oriented x3 HEENT: Atraumatic Cardiovascular: Regular rate Respiratory: No respiratory distress, Wheezes (Scant) - Results Results: Laboratory Results WBC 19.7 x10^3/uL (4.8-10.8) H 08/25/22 07:15 RBC 4.30 10^6/uL (4.20-5.40) 08/25/22 07:15 Hgb 12.0 g/dL (12.0-16.0) 08/25/22 07:15 Hct 37.8 % (37.0-47.0) 08/25/22 07:15 MCV 87.9 fL (81.0-99.0) 08/25/22 07:15 MCH 27.9 pg (27.0-31.0) 08/25/22 07:15 MCHC 31.7 g/dL (32.0-36.0) L 08/25/22 07:15 RDW 13.9 % (12.0-15.0) 08/25/22 07:15 Plt Count 551 10^3/uL (130-450) H 08/25/22 07:15 MPV 9.7 fL (7.9-10.8) 08/25/22 07:15 Neut # (Auto) 17.4 10^3/uL (1.5-6.6) H 08/25/22 07:15 Lymph # (Auto) 1.1 10^3/uL (1.5-3.5) L 08/25/22 07:15 [place] # (Auto) 0.5 10^3/uL (0.0-1.0) 08/25/22 07:15 Eos # (Auto) 0.0 10^3/uL (0.0-0.7) 08/25/22 07:15 Baso # (Auto) 0.0 10^3/uL (0.0-0.1) 08/25/22 07:15 Absolute Nucleated RBC 0.00 x10^3/uL 08/25/22 07:15 Total Counted 100 08/24/22 04:40 Band Neuts % (Manual) 0 % (0-10) 08/24/22 04:40 Reactive Lymphs % (Man) 2 % 08/21/22 07:41 Abnorm Lymph % (Manual) 0 % 08/24/22 04:40 Nucleated RBC % 0.0 /100WBC 08/25/22 07:15 Neutrophils # (Manual) 21.7 10^3/uL (1.5-6.6) H 08/24/22 04:40 Lymphocytes # (Manual) 1.4 10^3/uL (1.5-3.5) L 08/24/22 04:40 Monocytes # (Manual) 1.0 10^3/uL (0.0-1.0) 08/24/22 04:40 Eosinophils # (Manual) 0.0 10^3/uL (0-0.7) 08/24/22 04:40 Basophils # (Manual) 0.0 10^3/uL (0-0.1) 08/24/22 04:40 Differential Comment MANUAL DIFFERENTIAL 08/24/22 04:40 Manual Slide Review Indicated 08/25/22 07:15 WBC Morphology NORMAL APPEARANCE (NORMAL) 08/24/22 04:40 Platelet Estimate INCREASED (>450,000) (NORMAL) 08/24/22 04:40 Platelet Morphology NORMAL APPEARANCE (NORMAL) 08/24/22 04:40 RBC Morph Micro Appear 2+ ANISOCYTOSIS (NORMAL) 08/25/22 07:15 Bld Gas Analysis Time 0543 08/17/22 05:40 Sample Site RIGHT RADIAL 08/17/22 05:40 ABG pH 7.38 (7.35-7.45) 08/17/22 05:40 ABG pCO2 59 mmHg (34-45) H 08/17/22 05:40 ABG pO2 138 mmHg (80-100) H 08/17/22 05:40 ABG HCO3 34.0 mmol/L (22.0-26.0) H 08/17/22 05:40 ABG Total CO2 35.8 MMOL/L (21.0-29.0) H 08/17/22 05:40 ABG O2 Saturation 99 % (94-98) H 08/17/22 05:40 ABG Base Excess 7.0 mmol/L (-2.0-3.0) H 08/17/22 05:40 Migue Test POSITIVE 08/17/22 05:40 VBG pH 7.288 (7.31-7.41) L 08/22/22 05:16 Ionized Calcium 1.21 mmol/L (1.15-1.33) 08/22/22 05:16 O2 Delivery Device OXYMASK 08/17/22 05:40 O2 Liters/Min 6.00 LPM 08/17/22 05:40 FiO2 44.00 08/17/22 05:40 Sodium 140 mmol/L (135-145) 08/25/22 07:15 Potassium 4.0 mmol/L (3.5-5.0) 08/25/22 07:15 Chloride 101 mmol/L (101-111) 08/25/22 07:15 Carbon Dioxide 31 mmol/L (21-32) 08/25/22 07:15 Anion Gap 8.0 (6-13) 08/25/22 07:15 BUN 18 mg/dL (6-20) 08/25/22 07:15 Creatinine 0.7 mg/dL (0.4-1.0) 08/25/22 07:15 Estimated GFR (MDRD) 80 (>89) L 08/25/22 07:15 Glucose 153 mg/dL (70-100) H 08/25/22 07:15 Calcium 8.0 mg/dL (8.5-10.3) L 08/25/22 07:15 Phosphorus 2.6 mg/dL (2.5-4.6) 08/22/22 05:16 Magnesium 2.3 mg/dL (1.7-2.8) 08/22/22 18:26 Total Bilirubin 0.5 mg/dL (0.2-1.0) 08/25/22 07:15 AST 22 IU/L (10-42) 08/25/22 07:15 ALT 39 IU/L (10-60) 08/25/22 07:15 Alkaline Phosphatase 82 IU/L (42-121) 08/25/22 07:15 Total Creatine Kinase 16 IU/L (22-269) L 08/13/22 16:15 Troponin I High Sens 9.8 ng/L (2.3-14.8) 08/19/22 17:49 B-Natriuretic Peptide 246 pg/mL (5-100) H 08/18/22 08:05 Total Protein 5.5 g/dL (6.7-8.2) L 08/25/22 07:15 Albumin 2.1 g/dL (3.2-5.5) L 08/25/22 07:15 Globulin 3.4 g/dL (2.1-4.2) 08/25/22 07:15 Albumin/Globulin Ratio 0.6 (1.0-2.2) L 08/25/22 07:15 Triglycerides 68 mg/dL (-149) 08/14/22 05:04 Cholesterol 60 mg/dL (-199) 08/14/22 05:04 LDL Cholesterol, Calc 28 mg/dL (-129) 08/14/22 05:04 VLDL Cholesterol 14 mg/dL 08/14/22 05:04 HDL Cholesterol 18 mg/dL (60-) L 08/14/22 05:04 LDL/HDL Ratio 1.6 (<4.4) 08/14/22 05:04 Cholesterol/HDL Ratio 3.3 (<4.4) 08/14/22 05:04 Urine Color YELLOW 08/19/22 14:00 Urine Clarity CLOUDY (CLEAR) 08/19/22 14:00 Urine pH 5.5 PH (5.0-7.5) 08/19/22 14:00 Ur Specific [place] 1.025 (1.002-1.030) 08/19/22 14:00 Urine Protein 30 mg/dL (NEGATIVE) H 08/19/22 14:00 Urine Glucose (UA) NEGATIVE mg/dL (NEGATIVE) 08/19/22 14:00 Urine Ketones NEGATIVE mg/dL (NEGATIVE) 08/19/22 14:00 Urine Occult Blood SMALL (NEGATIVE) H 08/19/22 14:00 Urine Nitrite NEGATIVE (NEGATIVE) 08/19/22 14:00 Urine Bilirubin NEGATIVE (NEGATIVE) 08/19/22 14:00 Urine Urobilinogen 0.2 (NORMAL) E.U./dL (NORMAL) 08/19/22 14:00 Ur Leukocyte Esterase LARGE (NEGATIVE) H 08/19/22 14:00 Urine RBC 11-25 /HPF (0-5) H 08/19/22 14:00 Urine WBC >25 /HPF (0-5) H 08/19/22 14:00 Urine WBC Clumps Cancelled 08/19/22 10:40 Ur Epithelial Cells Cancelled 08/19/22 10:40 Ur Squamous Epith Cells RARE Squamous (<= Few) 08/19/22 14:00 Urine Crystals Cancelled 08/19/22 10:40 Amorphous Sediment Cancelled 08/19/22 10:40 Urine Bacteria Moderate /HPF (None Seen) H 08/19/22 14:00 Urine Casts Cancelled 08/19/22 10:40 Urine Starch Cancelled 08/19/22 10:40 Urine Mucus Cancelled 08/19/22 10:40 Urine Trichomonas Cancelled 08/19/22 10:40 Urine Yeast Cancelled 08/19/22 10:40 Urine Sperm Cancelled 08/19/22 10:40 Ur Oval Fat Bodies Cancelled 08/19/22 10:40 Ur Microscopic Review NOT INDICATED 08/13/22 17:52 Urine Culture Comments INDICATED 08/19/22 14:00 Nasal Screen MRSA (PCR) NEGATIVE (NEGATIVE) 08/19/22 16:35 Last Dose Date 08/20/22 08/20/22 14:16 Last Dose Time 1312 08/20/22 14:16 Vancomycin Peak 36.3 ug/mL (20.0-40.0) 08/20/22 14:16 Vancomycin Trough 14.6 ug/mL (10.0-20.0) 08/20/22 09:32 SARS-CoV-2 (PCR) NOT DETECTED 08/18/22 08:43 - Procedures Procedures: Procedures EXCISION OF CECUM, ENDO (03/24/19) EXCISION OF SIGMOID COLON, ENDO (03/24/19) EXCISION OF TRANSVERSE COLON, ENDO (03/24/19) ABX Reporting Has patient been on IV antibiotics over the past 48 hours?: Yes
[2022-08-25] MEDS: MIRTAZAPINE 15 MG TABLET PO SCH (20:13)
[2022-08-25] MEDS: FAMOTIDINE 20 MG TABLET PO SCH (20:13)
[2022-08-25] MEDS: MONTELUKAST 10 MG TABLET PO SCH (20:13)
[2022-08-26] MEDS: SODIUM CHLORIDE FLUSH 0.9% 10 ML SYRINGE IVP SCH ×3 (01:19→17:24)
[2022-08-26] MEDS: metroNIDAZOLE 500 MG/100 ML 500 MG/100 ML BAG IV SCH ×3 (03:35→20:29)
[2022-08-26] MEDS: LEVALBUTEROL 1.25 MG/3 ML NEB INH SCH ×3 (07:10→15:09)
[2022-08-26] MEDS: BUDESONIDE 0.5 MG/2 ML NEB INH SCH (07:10)
[2022-08-26] MEDS: METOPROLOL 5 MG/5 ML VIAL IVP PRN (07:50)
[2022-08-26 08:21] LABS: BASOPHILS % (AUTO) 0.2 %; EOSINOPHILS % (AUTO) 0.5 %; LYMPHOCYTES % (AUTO) 9.3 %; MEAN CORPUSCULAR HEMOGLOBIN 27.4 pg (27.0-31.0); MEAN CORPUSCULAR VOLUME 88.6 fL (81.0-99.0); MEAN PLATELET VOLUME 9.2 fL (7.9-10.8); NEUTROPHILS % (AUTO) 83.1 %; PLT - PLATELET COUNT 614 10^3/uL (130-450); RED BLOOD COUNT 4.74 10^6/uL (4.20-5.40); RED CELL DISTRIBUTION WIDTH 13.9 % (12.0-15.0); WHITE BLOOD COUNT 24.2 x10^3/uL (4.8-10.8)
[2022-08-26] MEDS: MULTIVITAMIN W/MINERALS TABLET PO SCH (08:23)
[2022-08-26] MEDS: TAMSULOSIN 0.4 MG CAPSULE PO SCH (08:24)
[2022-08-26] MEDS: guaiFENesin 600 MG TABLET PO SCH ×2 (08:24→20:33)
[2022-08-26] MEDS: ASPIRIN CHEW 81 MG TABLET PO SCH (08:24)
[2022-08-26] MEDS: FAMOTIDINE 20 MG TABLET PO SCH ×2 (08:24→20:30)
[2022-08-26] MEDS: cefTRIAXone 2 GM in SODIUM CHLORIDE 0.9% MINIBAG 100 ML IV SCH (08:24)
[2022-08-26] MEDS: ENOXAPARIN 40 MG/0.4 ML SYRINGE SUBQ SCH (08:24)
[2022-08-26] MEDS: OMEGA-3 ACID ETHYL ESTERS 1 GM CAPSULE PO SCH ×2 (08:24→17:24)
[2022-08-26] MEDS: METOPROLOL TARTRATE 25 MG TABLET PO SCH ×2 (08:24→20:30)
[2022-08-26] MEDS: SACCHAROMYCES BOULARDII 250 MG CAPSULE PO SCH ×2 (08:24→17:24)
[2022-08-26 08:42] LABS: CALCIUM 7.8 mg/dL (8.5-10.3); CREATININE 0.6 mg/dL (0.4-1.0); POTASSIUM 3.6 mmol/L (3.5-5.0)
[2022-08-26 08:49] LABS: SLIDE REVIEW? Indicated
[2022-08-26 08:51] LABS: ABNORMAL LYMPHS % (MANUAL) 0 %
[2022-08-26 08:52] LABS: BAND NEUTROPHILS % (MANUAL) 6 %; EOSINOPHILS # (MANUAL) 0.2 10^3/uL (0-0.7); LYMPHOCYTES # (MANUAL) 1.2 10^3/uL (1.5-3.5); LYMPHOCYTES % (MANUAL) 5 %; METAMYELOCYTES % (MANUAL) 1 %; MONOCYTES # (MANUAL) 0.7 10^3/uL (0.0-1.0); NEUTROPHILS # (MANUAL) 21.8 10^3/uL (1.5-6.6)
[2022-08-26 08:53] LABS: PLATELET ESTIMATE, MANUAL INCREASED (>450,000) (NORMAL); PLATELET MORPHOLOGY NORMAL APPEARANCE (NORMAL); RBC MORPHOLOGY (MULTIPLE) 1+ ANISOCYTOSIS (NORMAL)
[2022-08-26 08:54] LABS: DIFFERENTIAL COMMENT MANUAL DIFFERENTIAL; WBC MORPHOLOGY (MULTIPLE) NORMAL APPEARANCE (NORMAL)
[2022-08-26] MEDS: GABAPENTIN 100 MG CAPSULE PO SCH ×2 (12:15→20:30)
--- NOTE | 2022-08-26 13:30 | PROVIDER PROGRESS NOTE ---
Assessment/Plan - Problem List (1) Junctional bradycardia Assessment/Plan: Impression: On 08/19 the patient went into recurrent, brief episodes of junctional bradycardia with ventr rates of 10-30. She was transferred to the ICU. External pacer patches were put on as a precaution and the pacemaker device was moved into her ICU room, but she did not need to be externally paced. I put her on an Aminophylline continuous IV drip, to give her the desired side effect of a higher heart rate, for 24 hours Her labs were checked when she was transferred to the ICU. Her potassium was 5.5 which may have been the cause of the junctional bradycardia. The troponins were checked and EKG was done and these did not reveal an acute TN. Her Echo had been done earlier this admission which showed normal chamber sizes and normal LV and RV contractility. I stopped the Cardizem CD temporarily. Plan: About 12 hours after the aminophylline was stopped, yesterday her rhythm was normal sinus at 70-80. This afternoon she is going back into A-fib at 100-140 and I am restarting Cardizem po but at a lower dose She will be moved out of the ICU to [facility] on telemetry. (2) UTI Assessment/Plan: For the last several days she has had urinary retention and needed straight cath. On 08/19 a Paz catheter was inserted due to high volume on bladder scan. During that insertion she had white purulent urine drained. A urinalysis was sent off and this had many WBCs and many bacteria. That urine culture is growing nothing (probably because she had a partially treated UTI, from already being on cefepime for her pneumonia) All labs were reviewed. Her white count lucia, I suspect the persistently elevated WBC is from this newly found UTI Plan: I have kept her on her iv Cefepime, which had already been started for the HCAP (3) Acute urinary retention Assessment/Plan: For the last several nights the patient has had high residual on bladder s joy, showing urinary retention of 400-600. Straight caths were needed. I ordered a Paz insertion because of her severe shortness of breath even at rest, plus this urinary retention. The patient is on a bladder medication which has been continued here I suspect this acute UTI is what caused the urinary retention Plan: Cont Paz for now (4) Acute and chronic respiratory failure with hypoxia Assessment/Plan: Patient was more hypoxic several days ago and was only saturating 84%. She needed her supplemental O2 increased to an Oxymask as high as 8 L/min, then was able to titrate O2 down to 4L/min via Oxymask and now occiasional n.c. The work-up showed that she has a new pneumonia found ib CXR on her 3rd day here, and antibx were started after cx obtained. She was in new atrial flutter with RVR then too. All labs were reviewed. Troponins went from 7 to 20. I ordered her to be on oxy mask when she is asleep because she is a mouth breather Plan: Continue with empiric IV antibiotics to cover HCAP Await sputum and blood culture results Continue supplemental O2, target saturation is > 88% (5) HCAP (healthcare-associated pneumonia) Assessment/Plan: Her CXR on 08/17 showed a new RUL pneumonia. We obtained blood cx and sputum cx All labs were reviewed. Her white count lucia from 16.6 up to 27.7 w/ a L shift >> 27.6>> 25>> 25 today. I suspect the persistently elevated WBC is from that newly found UTI and now 2 days of iv steroid use Plan: Cont empiric antibx to cover a Healthcare-associated pneumonia: using IV vancomycin, and IV Cefepime. Cont Florastor Follow WBC August 22, 2022-sputum culture is growing E. coli so have DC'd vancomycin and kept her cefepime and added Flagyl for possibility of aspiration pneumonia August 23, 2022-sputum culture now is growing MRSA so have added back IV vancomyci -August 24, 2022 per pharmacy recommendations switching from cefepime to Rocephin which sensitivities of the culture show that is appropriate for the E. coli and will continue with IV vancomycin continue with IV Flagyl which was added for possibility of aspiration pneumonia also August 25, 2022-patient seems much more alert responsive and more active continue antibiotic regimen for at least a total of 7 days with this regimen given her sputum showing E. coli and MRSA (6) COPD exacerbation Assessment/Plan: This new pneumonia had caused her to wheeze. She now has a COPD exacerbation. She still has wet phlegm in upper airway, and she only clears her throat, she seems to be too weak to cough it up. I started Montelukast q pm Because of very poor air movement on exam, I added Solu-Medrol 40 mg tid Plan: Cont Xopenex nebulized bronchodilators, Montelukast Cont Mucinex and Solumedrol I also ordered chest PT TID, for expectoration, if she can tolerate it August 25, 2022-patient's Solu-Medrol was DC'd (6) Atrial flutter with rapid ventricular response Assessment/Plan: The patient went into new A-fib spontaneously converted back to sinus rhythm, then went into atrial flutter with RVR on 08/17, when she was at her worst resp distress. After her morning Cardizem dose, she converted to NSR. Then she had Paroxysms of atrial flutter with 2-1 and 3-1 block for several days. Troponins went from 7 to 20, likely rate-related demand ischemia. Her BNP was mildly elevated 208>> 246 Earlier, she was already having short runs of PSVT, at rates of 115. She had an Echocardiogram done her 08/15, which showed normal LV size and fu nction and normal RV size and function Plan: I will put a hold on her Cardizem CD, because of the junctional heather rhythm. Today heart rate is 100-140 so Cardizem CD will be resumed but not at 240 mg but at 120 mg. 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 We are still adjusting her heart rate meds actively Her [id number] score is 1, so Aspirin daily, not anticoagulant is indicated, and she is on ASA daily August 26, 2022-patient did have RVR atrial fibrillation this a.m. patient was g iven IV metoprolol 5 mg and initiated on metoprolol 25 mg p.o. twice daily (7) Generalized weakness Assessment/Plan: The brain MRI showed only diffuse changes of atrophy, no evidence of old stroke or recent stroke. The patient does carry a diagnosis of polio, which may have given L>R leg weakness. On 08/17 her O2 sat was 83% at rest, while on n.c.so she was put boo oxymask. I ordered for patient to be put on suppl O2 via oxy mask whenever she is asleep or napping. She has been too tired to participate with rehab for several days On 08/18 I updated the visitors in the room, regarding her new pneumonia and her overall weakness. Renate confirmed that the pt has a very poor appetite and mostly eats cottage cheese and peaches, she also likes well cooked asparagus and chocolate pudding. Also that day Renate requested that I get a Neurology consult. On 08/18, I called and spoke to the Neurologist on-call, and reviewed the entire case, including the 2 falls at home. This Neurologist said that I had done due diligence for this patient, and had no new recommendations. Today 08/21, I updated her son Sin from [place], her biologic granddaughter Yvonne, the family friend Yolis, and Hortencia by phone, all at bedside in her room. Plan: Remain on lower gabapentin dose (300 mg tid was already decreased to 100 mg TID), and today I will decrease that to BID at 1300 & 2000 PT and OT to keep working with her, since she is deconditioned and felt too weak to do PT, the last 3 days. Our PT was recommending SNF for rehab. On 08/19, after being transferred to the ICU, her RN informed me that a daughter named Susan called from the [facility]. Apparently Renate had called Susan. The pt's RN Jesse received permission from [employer] to talk to Susan. Susan said t hat Renate is not her daughter and not even an adopted daughter but that the patient just lives with Renate. The patient has 7 children who are scattered all over the [facility]. I then called Renate again and asked whether she is the adopted daughter legally or verbally and Renate said she is "verbally" an adopted daughter. I then corrected Renate and said that legally she is just considered a friend, if there is no legal paperwork for adoption. Renate confirmed that there are many children and the closest is Sin who lives in [facility] and he was to come to visit the patient. On 08/20, at bedside was the "adopted granddaughter" who said she is also the "sister of Renate". When I remarked that Renate is not a blood relative to Tiffany, then she said she "feels like she is a sister to Renate, because they are so close". I told her that medical legally she is just considered a friend. I will speak to Social Work about these family interactions and ask Social Work to establish if there is the DPOA and who are all the people that we are allowed to speak with, about the pt. Today 08/21, I updated her son Sin from [place], her biologic granddaughter Yvonne, and the family friend Yolis, that medical legally if there is no one person designated as a DPOA, then all the current children (5 of 7 are alive), will need to agree on what we do, if the patient cannot make her own decisions (like she could not when she was obtunded and in junctional rhythm and was transferred to the ICU). (8) Fall at home Impression: Patient has a very bruised and mildly swollen left upper eyelid. That was the fall from several days ago. Following that she rolled out of bed 2 days later, landing on her left side she thinks. She complained of L sided pain s/p GLF and neck pain s/p GLF, in the ED. H/o recent L hip fracture s/p ORIF Her CSpine CT showed : DJD C1-C2, C5-C6, C6-C7 Her orthostatic vital signs reveal volume depletion, when checked the past several days. She received iv fluids for 2 days I restart Gabapentin at a lower dose of 100 mg TID not 300 mg TID She received 2 days of IV fluids, approximately 2 L positive in fluid balance. Chest x-ray today 08/17/2022 shows mild blunting of her costophrenic angles Plan: Since the patient has had recent orthostasis, I did not yet restarted her Lasix. Her IV fluids were stopped when BNP was noted to be elevated but I am resuming iv fluids today due to her poor po intake, D5W at 83.33 cc/hr. Remain on lower gabapentin dose (300 mg tid was decreased to 100 mg TID), and today I will decrease that to BID at 1300 & 2000 PT and OT rehab needs to continue (9) Severe protein calorie malnutrition The patient's BMI is only 17. She is cachectic, has temporal wasting and sunken eyes and diffuse muscle wasting and loss of subcutaneous fat. She screened for excessive weight loss, done by our Geneticist: Has had nutritional intake of less than 50% for 2 weeks or more, and has lost 12% of her weight in 6 months. Her labs showed a LDL of 48 and an HDL of 18, and she was on a statin at home. I ordered a more liberalized diet with Geneticist to take her meal choices I stopped her statin and will plan discharge off the statin. I started her on omega-3 tablet daily to increase her HDL On 08/18 I spoke to the daughter who was visiting in her room, who confirmed that her mother has a very poor appetite and mostly eats cottage cheese and peaches, she also likes well cooked asparagus and chocolate pudding. Today 08/21, when I asked what protein she eats, the family at bedside told me that she also likes peanut butter and hard-boiled eggs. Plan: I have added Boost to be given with all meals I will start Remeron to stimulate appetite. August 25, 2022-patient has significantly improved appetite and ate her food better than she has in the recent past. - Current Meds Current Meds: Current Medications Generic Name Dose Route Start Last Admin Trade Name Sugey PRN Reason Stop Dose Admin Aspirin 81 mg 08/14/22 09:00 08/26/22 08:24 Aspirin Chew 81 Mg Tablet PO 81 mg DAILY HENOK Administration Budesonide 0.5 mg 08/14/22 07:00 08/26/22 07:10 Budesonide 0.5 Mg/2 Ml Neb INH 0.5 mg RTBID HENOK Administration Enoxaparin Sodium 40 mg 08/14/22 09:00 08/26/22 08:24 Enoxaparin 40 Mg/0.4 Ml Syringe SUBQ 40 mg DAILY HENOK Administration Famotidine 20 mg 08/25/22 21:00 08/26/22 08:24 Famotidine 20 Mg Tablet PO 20 mg BID HENOK Administration Gabapentin 100 mg 08/21/22 13:00 08/26/22 12:15 Gabapentin 100 Mg Capsule PO 100 mg 1300,2000 HENOK Administration Guaifenesin 600 mg 08/17/22 10:00 08/26/22 08:24 Guaifenesin 600 Mg Tablet PO 600 mg BID HENOK Administration Ceftriaxone Sodium 2 gm/ 100 mls @ 200 mls/hr 08/24/22 11:00 08/26/22 08:55 Sodium Chloride IV Infused DAILY HENOK Infusion Metronidazole 500 mg in 100 mls @ 100 mls/hr 08/25/22 12:00 08/26/22 12:15 Flagyl 500 Mg/100 Ml IV 100 mls/hr Q8H HENOK Administration Vancomycin HCl 1 gm/ Sodium 250 mls @ 167 mls/hr 08/25/22 13:00 08/25/22 15:14 Chloride IV Infused Q24H HENOK Infusion Levalbuterol HCl 1.25 mg 08/17/22 14:59 08/26/22 11:14 Levalbuterol 1.25 Mg/3 Ml Neb INH 1.25 mg RTQID HENOK Administration Metoprolol Tartrate 5 mg 08/22/22 12:37 08/26/22 07:50 Metoprolol 5 Mg/5 Ml Vial IVP 5 mg Q6H PRN Administration HR>110 Metoprolol Tartrate 25 mg 08/26/22 09:00 08/26/22 08:24 Metoprolol Tartrate 25 Mg Tablet PO 25 mg BID HENOK Administration Mirtazapine 15 mg 08/21/22 21:00 08/25/22 20:13 Mirtazapine 15 Mg Tablet PO 15 mg QPM HENOK Administration Montelukast Sodium 10 mg 08/19/22 21:00 08/25/22 20:13 Montelukast 10 Mg Tablet PO 10 mg QPM HENOK Administration Morphine Sulfate 2 mg 08/19/22 09:12 08/22/22 12:15 Morphine 2 Mg/Ml Carpuject IVP 2 mg Q4HR PRN Administration Dyspnea Multivitamins/Minerals 1 tab 08/15/22 17:00 08/26/22 08:23 Multivitamin W/Minerals Tablet PO 1 tab DAILYWM HENOK Administration [id number] Ethyl Esters 1 gm 08/20/22 17:00 08/26/22 08:24 [place]-3 Acid Ethyl Esters 1 Gm Capsule PO 1 gm BIDWM HENOK Administration Saccharomyces Boulardii 250 mg 08/17/22 17:00 08/26/22 08:24 Saccharomyces Boulardii 250 Mg Capsule PO 250 mg BIDWM HENOK Administration Sodium Chloride 10 ml 08/13/22 19:43 08/21/22 22:09 Sodium Chloride Flush 0.9% 10 Ml Syringe IVP 10 ml PRN PRN Administration NEEDED PER PROVIDER ORDERS Sodium Chloride 10 ml 08/14/22 01:00 08/26/22 08:25 Sodium Chloride Flush 0.9% 10 Ml Syringe IVP 10 ml 0100,0900,1700 HENOK Administration Tamsulosin HCl 0.4 mg 08/15/22 09:00 08/26/22 08:24 Tamsulosin 0.4 Mg Capsule PO 0.4 mg DAILY HENOK Administration - Lab Result Fish Bone Diagrams: 08/26/22 08:09 08/26/22 08:09 - Additional Planning My Orders: My Active Orders 08/26/22 09:00 Metoprolol Tartrate [Lopressor] 25 mg PO BID 08/27/22 05:00 CBC - COMP BLD CT W/AUTO DIFF [HEME] DAILYLAB 08/28/22 05:00 CBC - COMP BLD CT W/AUTO DIFF [HEME] DAILYLAB 08/29/22 05:00 CBC - COMP BLD CT W/AUTO DIFF [HEME] DAILYLAB 08/30/22 05:00 CBC - COMP BLD CT W/AUTO DIFF [HEME] DAILYLAB Subjective - Subjective Patient Reports: Feeling Better Objective Vital Signs: Vital Signs - 24 hr 08/25/22 08/25/22 08/25/22 14:59 16:08 19:28 Temperature 36.5 C Heart Rate 78 95 Heart Rate [ 102 H Brachial] Heart Rate [ Monitoring electrodes] Respiratory 17 16 16 Rate Blood Pressure Blood Pressure 143/76 H [Right Brachial artery] O2 Saturation 95 If not protocol 1 : Oxygen Flow, liters/minute 08/25/22 08/25/22 08/26/22 20:31 23:51 06:35 Temperature 36.6 C 36.3 C L 36.6 C Heart Rate Heart Rate [ 95 Brachial] Heart Rate [ 92 128 H Monitoring electrodes] Respiratory 20 20 20 Rate Blood Pressure Blood Pressure 138/70 H 146/79 H 152/88 H [Right Brachial artery] O2 Saturation 94 94 90 L If not protocol : Oxygen Flow, liters/minute 08/26/22 08/26/22 08/26/22 07:11 07:46 07:47 Temperature 36.5 C Heart Rate 100 Heart Rate [ Brachial] Heart Rate [ 148 H Monitoring electrodes] Respiratory 18 18 Rate Blood Pressure Blood Pressure 183/151 H 140/82 H [Right Brachial artery] O2 Saturation 91 L If not protocol : Oxygen Flow, liters/minute 08/26/22 08/26/22 08/26/22 07:50 08:00 08:11 Temperature Heart Rate Heart Rate [ Brachial] Heart Rate [ 105 H 95 Monitoring electrodes] Respiratory 20 18 Rate Blood Pressure 157/90 H Blood Pressure 140/81 H 155/85 H [Right Brachial artery] O2 Saturation 88 L 92 If not protocol : Oxygen Flow, liters/minute 08/26/22 08/26/22 08/26/22 08:20 08:24 11:16 Temperature Heart Rate 90 Heart Rate [ Brachial] Heart Rate [ Monitoring electrodes] Respiratory 18 Rate Blood Pressure 155/85 H 155/85 H Blood Pressure [Right Brachial artery] O2 Saturation If not protocol : Oxygen Flow, liters/minute Oxygen O2 Source Room air I&O (Last 24 Hrs): Intake and Output Totals x24h 08/24/22 08/25/22 08/26/22 23:59 23:59 23:59 Intake Total 1120 1520.000 440 Output Total 2225 2450 2625 Balance -1105 -930.000 -2185 General: Alert, Oriented x3 HEENT: Atraumatic Neuro: Alert Cardiovascular: Regular rate, Normal S1, Normal S2 Skin: No rashes - Results Results: Laboratory Results WBC 24.2 x10^3/uL (4.8-10.8) H 08/26/22 08:09 RBC 4.74 10^6/uL (4.20-5.40) 08/26/22 08:09 Hgb 13.0 g/dL (12.0-16.0) 08/26/22 08:09 Hct 42.0 % (37.0-47.0) 08/26/22 08:09 MCV 88.6 fL (81.0-99.0) 08/26/22 08:09 MCH 27.4 pg (27.0-31.0) 08/26/22 08:09 MCHC 31.0 g/dL (32.0-36.0) L 08/26/22 08:09 RDW 13.9 % (12.0-15.0) 08/26/22 08:09 Plt Count 614 10^3/uL (130-450) H 08/26/22 08:09 MPV 9.2 fL (7.9-10.8) 08/26/22 08:09 Neut # (Auto) Not Reportable 08/26/22 08:09 Lymph # (Auto) Not Reportable 08/26/22 08:09 [place] # (Auto) Not Reportable 08/26/22 08:09 Eos # (Auto) Not Reportable 08/26/22 08:09 Baso # (Auto) Not Reportable 08/26/22 08:09 Absolute Nucleated RBC Not Reportable 08/26/22 08:09 Total Counted 100 08/26/22 08:09 Band Neuts % (Manual) 6 % (0-10) 08/26/22 08:09 Reactive Lymphs % (Man) 2 % 08/21/22 07:41 Abnorm Lymph % (Manual) 0 % 08/26/22 08:09 Metamyelocytes % 1 % (-0) H 08/26/22 08:09 Nucleated RBC % Not Reportable 08/26/22 08:09 Neutrophils # (Manual) 21.8 10^3/uL (1.5-6.6) H 08/26/22 08:09 Lymphocytes # (Manual) 1.2 10^3/uL (1.5-3.5) L 08/26/22 08:09 Monocytes # (Manual) 0.7 10^3/uL (0.0-1.0) 08/26/22 08:09 Eosinophils # (Manual) 0.2 10^3/uL (0-0.7) 08/26/22 08:09 Basophils # (Manual) 0.0 10^3/uL (0-0.1) 08/26/22 08:09 Differential Comment MANUAL DIFFERENTIAL 08/26/22 08:09 Manual Slide Review Indicated 08/26/22 08:09 WBC Morphology NORMAL APPEARANCE (NORMAL) 08/26/22 08:09 Platelet Estimate INCREASED (>450,000) (NORMAL) 08/26/22 08:09 Platelet Morphology NORMAL APPEARANCE (NORMAL) 08/26/22 08:09 RBC Morph Micro Appear 1+ ANISOCYTOSIS (NORMAL) 08/26/22 08:09 Bld Gas Analysis Time 0543 08/17/22 05:40 Sample Site RIGHT RADIAL 08/17/22 05:40 ABG pH 7.38 (7.35-7.45) 08/17/22 05:40 ABG pCO2 59 mmHg (34-45) H 08/17/22 05:40 ABG pO2 138 mmHg (80-100) H 08/17/22 05:40 ABG HCO3 34.0 mmol/L (22.0-26.0) H 08/17/22 05:40 ABG Total CO2 35.8 MMOL/L (21.0-29.0) H 08/17/22 05:40 ABG O2 Saturation 99 % (94-98) H 08/17/22 05:40 ABG Base Excess 7.0 mmol/L (-2.0-3.0) H 08/17/22 05:40 Migue Test POSITIVE 08/17/22 05:40 VBG pH 7.288 (7.31-7.41) L 08/22/22 05:16 Ionized Calcium 1.21 mmol/L (1.15-1.33) 08/22/22 05:16 O2 Delivery Device OXYMASK 08/17/22 05:40 O2 Liters/Min 6.00 LPM 08/17/22 05:40 FiO2 44.00 08/17/22 05:40 Sodium 139 mmol/L (135-145) 08/26/22 08:09 Potassium 3.6 mmol/L (3.5-5.0) 08/26/22 08:09 Chloride 99 mmol/L (101-111) L 08/26/22 08:09 Carbon Dioxide 32 mmol/L (21-32) 08/26/22 08:09 Anion Gap 8.0 (6-13) 08/26/22 08:09 BUN 16 mg/dL (6-20) 08/26/22 08:09 Creatinine 0.6 mg/dL (0.4-1.0) 08/26/22 08:09 Estimated GFR (MDRD) 96 (>89) 08/26/22 08:09 Glucose 120 mg/dL (70-100) H 08/26/22 08:09 Calcium 7.8 mg/dL (8.5-10.3) L 08/26/22 08:09 Phosphorus 2.6 mg/dL (2.5-4.6) 08/22/22 05:16 Magnesium 2.3 mg/dL (1.7-2.8) 08/22/22 18:26 Total Bilirubin 0.5 mg/dL (0.2-1.0) 08/25/22 07:15 AST 22 IU/L (10-42) 08/25/22 07:15 ALT 39 IU/L (10-60) 08/25/22 07:15 Alkaline Phosphatase 82 IU/L (42-121) 08/25/22 07:15 Total Creatine Kinase 16 IU/L (22-269) L 08/13/22 16:15 Troponin I High Sens 9.8 ng/L (2.3-14.8) 08/19/22 17:49 B-Natriuretic Peptide 246 pg/mL (5-100) H 08/18/22 08:05 Total Protein 5.5 g/dL (6.7-8.2) L 08/25/22 07:15 Albumin 2.1 g/dL (3.2-5.5) L 08/25/22 07:15 Globulin 3.4 g/dL (2.1-4.2) 08/25/22 07:15 Albumin/Globulin Ratio 0.6 (1.0-2.2) L 08/25/22 07:15 Triglycerides 68 mg/dL (-149) 08/14/22 05:04 Cholesterol 60 mg/dL (-199) 08/14/22 05:04 LDL Cholesterol, Calc 28 mg/dL (-129) 08/14/22 05:04 VLDL Cholesterol 14 mg/dL 08/14/22 05:04 HDL Cholesterol 18 mg/dL (60-) L 08/14/22 05:04 LDL/HDL Ratio 1.6 (<4.4) 08/14/22 05:04 Cholesterol/HDL Ratio 3.3 (<4.4) 08/14/22 05:04 Urine Color YELLOW 08/19/22 14:00 Urine Clarity CLOUDY (CLEAR) 08/19/22 14:00 Urine pH 5.5 PH (5.0-7.5) 08/19/22 14:00 Ur Specific [place] 1.025 (1.002-1.030) 08/19/22 14:00 Urine Protein 30 mg/dL (NEGATIVE) H 08/19/22 14:00 Urine Glucose (UA) NEGATIVE mg/dL (NEGATIVE) 08/19/22 14:00 Urine Ketones NEGATIVE mg/dL (NEGATIVE) 08/19/22 14:00 Urine Occult Blood SMALL (NEGATIVE) H 08/19/22 14:00 Urine Nitrite NEGATIVE (NEGATIVE) 08/19/22 14:00 Urine Bilirubin NEGATIVE (NEGATIVE) 08/19/22 14:00 Urine Urobilinogen 0.2 (NORMAL) E.U./dL (NORMAL) 08/19/22 14:00 Ur Leukocyte Esterase LARGE (NEGATIVE) H 08/19/22 14:00 Urine RBC 11-25 /HPF (0-5) H 08/19/22 14:00 Urine WBC >25 /HPF (0-5) H 08/19/22 14:00 Urine WBC Clumps Cancelled 08/19/22 10:40 Ur Epithelial Cells Cancelled 08/19/22 10:40 Ur Squamous Epith Cells RARE Squamous (<= Few) 08/19/22 14:00 Urine Crystals Cancelled 08/19/22 10:40 Amorphous Sediment Cancelled 08/19/22 10:40 Urine Bacteria Moderate /HPF (None Seen) H 08/19/22 14:00 Urine Casts Cancelled 08/19/22 10:40 Urine Starch Cancelled 08/19/22 10:40 Urine Mucus Cancelled 08/19/22 10:40 Urine Trichomonas Cancelled 08/19/22 10:40 Urine Yeast Cancelled 08/19/22 10:40 Urine Sperm Cancelled 08/19/22 10:40 Ur Oval Fat Bodies Cancelled 08/19/22 10:40 Ur Microscopic Review NOT INDICATED 08/13/22 17:52 Urine Culture Comments INDICATED 08/19/22 14:00 Nasal Screen MRSA (PCR) NEGATIVE (NEGATIVE) 08/19/22 16:35 Last Dose Date 08/20/22 08/20/22 14:16 Last Dose Time 1312 08/20/22 14:16 Vancomycin Peak 36.3 ug/mL (20.0-40.0) 08/20/22 14:16 Vancomycin Trough 14.6 ug/mL (10.0-20.0) 08/20/22 09:32 SARS-CoV-2 (PCR) NOT DETECTED 08/18/22 08:43 - Procedures Procedures: Procedures EXCISION OF CECUM, ENDO (03/24/19) EXCISION OF SIGMOID COLON, ENDO (03/24/19) EXCISION OF TRANSVERSE COLON, ENDO (03/24/19) ABX Reporting Has patient been on IV antibiotics over the past 48 hours?: Yes
[2022-08-26] MEDS: VANCOMYCIN INJ 1 GM in SODIUM CHLORIDE 0.9% 250 ML IV SCH (14:02)
[2022-08-26] MEDS: MONTELUKAST 10 MG TABLET PO SCH (20:29)
[2022-08-26] MEDS: MIRTAZAPINE 15 MG TABLET PO SCH (20:29)
[2022-08-26] MEDS: SODIUM CHLORIDE FLUSH 0.9% 10 ML SYRINGE IVP PRN (20:29)
[2022-08-27] MEDS: BUDESONIDE 0.5 MG/2 ML NEB INH SCH ×2 (00:22→07:22)
[2022-08-27] MEDS: LEVALBUTEROL 1.25 MG/3 ML NEB INH SCH ×4 (00:23→15:22)
[2022-08-27] MEDS: SODIUM CHLORIDE FLUSH 0.9% 10 ML SYRINGE IVP SCH ×4 (01:15→20:35)
[2022-08-27] MEDS: metroNIDAZOLE 500 MG/100 ML 500 MG/100 ML BAG IV SCH (03:50)
[2022-08-27] MEDS: SODIUM CHLORIDE FLUSH 0.9% 10 ML SYRINGE IVP PRN (03:50)
[2022-08-27 07:54] LABS: BASOPHILS % (AUTO) 0.2 %; EOSINOPHILS % (AUTO) 0.9 %; HCT - HEMATOCRIT 39.4 % (37.0-47.0); HGB - HEMOGLOBIN 12.3 g/dL (12.0-16.0); LYMPHOCYTES % (AUTO) 10.2 %; MEAN CORPUSCULAR HEMOGLOBIN 27.9 pg (27.0-31.0); MEAN CORPUSCULAR HGB CONC 31.2 g/dL (32.0-36.0); MEAN CORPUSCULAR VOLUME 89.3 fL (81.0-99.0); MEAN PLATELET VOLUME 9.7 fL (7.9-10.8); MONOCYTES % (AUTO) 3.6 %; NEUTROPHILS % (AUTO) 83.9 %; PLT - PLATELET COUNT 451 10^3/uL (130-450); RED BLOOD COUNT 4.41 10^6/uL (4.20-5.40); RED CELL DISTRIBUTION WIDTH 14.2 % (12.0-15.0); WHITE BLOOD COUNT 24.5 x10^3/uL (4.8-10.8)
[2022-08-27 07:55] LABS: ABNORMAL LYMPHS % (MANUAL) 0 %; BAND NEUTROPHILS % (MANUAL) 0 %; SLIDE REVIEW? Indicated
[2022-08-27 08:42] LABS: DIFFERENTIAL COMMENT MANUAL DIFFERENTIAL; LYMPHOCYTES # (MANUAL) 3.4 10^3/uL (1.5-3.5); LYMPHOCYTES % (MANUAL) 14 %; MONOCYTES # (MANUAL) 0.5 10^3/uL (0.0-1.0); NEUTROPHILS # (MANUAL) 20.6 10^3/uL (1.5-6.6); PLATELET ESTIMATE, MANUAL INCREASED (>450,000) (NORMAL); PLATELET MORPHOLOGY NORMAL APPEARANCE (NORMAL); WBC MORPHOLOGY (MULTIPLE) NORMAL APPEARANCE (NORMAL)
[2022-08-27] MEDS: guaiFENesin 600 MG TABLET PO SCH ×2 (08:52→20:32)
[2022-08-27] MEDS: ASPIRIN CHEW 81 MG TABLET PO SCH (08:52)
[2022-08-27] MEDS: FAMOTIDINE 20 MG TABLET PO SCH ×2 (08:53→20:32)
[2022-08-27] MEDS: SACCHAROMYCES BOULARDII 250 MG CAPSULE PO SCH ×2 (08:53→16:58)
[2022-08-27] MEDS: OMEGA-3 ACID ETHYL ESTERS 1 GM CAPSULE PO SCH ×2 (08:53→16:58)
[2022-08-27] MEDS: MULTIVITAMIN W/MINERALS TABLET PO SCH (08:53)
[2022-08-27] MEDS: METOPROLOL TARTRATE 25 MG TABLET PO SCH ×2 (08:53→20:33)
[2022-08-27] MEDS: TAMSULOSIN 0.4 MG CAPSULE PO SCH (08:53)
[2022-08-27] MEDS: ENOXAPARIN 40 MG/0.4 ML SYRINGE SUBQ SCH (08:54)
[2022-08-27] MEDS: cefTRIAXone 2 GM in SODIUM CHLORIDE 0.9% MINIBAG 100 ML IV SCH (08:54)
[2022-08-27] MEDS: VANCOMYCIN INJ 1 GM in SODIUM CHLORIDE 0.9% 250 ML IV SCH (13:08)
[2022-08-27] MEDS: GABAPENTIN 100 MG CAPSULE PO SCH ×2 (13:08→20:32)
[2022-08-27] MEDS: METOPROLOL 5 MG/5 ML VIAL IVP PRN (17:10)
[2022-08-27] MEDS ORDERED: METOPROLOL 5 MG/5 ML VIAL IVP PRN (17:26)
[2022-08-27] MEDS: MONTELUKAST 10 MG TABLET PO SCH (20:32)
[2022-08-27] MEDS: MIRTAZAPINE 15 MG TABLET PO SCH (20:32)
[2022-08-28] MEDS: BUDESONIDE 0.5 MG/2 ML NEB INH SCH ×2 (05:42→07:30)
[2022-08-28] MEDS: LEVALBUTEROL 1.25 MG/3 ML NEB INH SCH ×5 (05:42→18:31)
[2022-08-28 07:54] LABS: BASOPHILS # (AUTO) 0.1 10^3/uL (0.0-0.1); BASOPHILS % (AUTO) 0.2 %; EOSINOPHILS # (AUTO) 0.2 10^3/uL (0.0-0.7); EOSINOPHILS % (AUTO) 0.5 %; HCT - HEMATOCRIT 40.6 % (37.0-47.0); HGB - HEMOGLOBIN 12.3 g/dL (12.0-16.0); LYMPHOCYTES # (AUTO) 1.8 10^3/uL (1.5-3.5); LYMPHOCYTES % (AUTO) 5.4 %; MEAN CORPUSCULAR HEMOGLOBIN 27.6 pg (27.0-31.0); MEAN CORPUSCULAR HGB CONC 30.3 g/dL (32.0-36.0); MONOCYTES # (AUTO) 1.1 10^3/uL (0.0-1.0); MONOCYTES % (AUTO) 3.2 %; NEUTROPHILS # (AUTO) 29.5 10^3/uL (1.5-6.6); NEUTROPHILS % (AUTO) 89.5 %; PLT - PLATELET COUNT 373 10^3/uL (130-450); RED BLOOD COUNT 4.46 10^6/uL (4.20-5.40); RED CELL DISTRIBUTION WIDTH 14.4 % (12.0-15.0)
[2022-08-28 07:55] LABS: SLIDE REVIEW? Indicated
[2022-08-28 07:59] LABS: BUN - BLOOD UREA NITROGEN 12 mg/dL (6-20); CALCIUM 7.9 mg/dL (8.5-10.3); CARBON DIOXIDE - CO2 36 mmol/L (21-32); CHLORIDE 100 mmol/L (101-111); CREATININE 0.6 mg/dL (0.4-1.0); GFR - MDRD 96 (>89); GLUCOSE 122 mg/dL (70-100); IONIZED CALCIUM IF INDICATED YES; POTASSIUM 3.5 mmol/L (3.5-5.0); SODIUM 140 mmol/L (135-145)
[2022-08-28 08:14] LABS: PLATELET ESTIMATE, MANUAL NORMAL (130-450,000) (NORMAL); PLATELET MORPHOLOGY NORMAL APPEARANCE (NORMAL); RBC MORPHOLOGY (MULTIPLE) NORMAL APPEARANCE (NORMAL)
[2022-08-28 08:57] LABS: CALCIUM, IONIZED 1.09 mmol/L (1.15-1.33); VBG PH 7.342 (7.31-7.41)
--- NOTE | 2022-08-28 10:02 | XRAY Report ---
PROCEDURE: Chest 1 View X-Ray INDICATIONS: leukocytosis TECHNIQUE: One view of the chest was acquired. COMPARISON: None. FINDINGS: Surgical changes and devices: None. Lungs and pleura: Suspect cavitary lesion in the right upper lung zone. Small left pleural effusion. Mediastinum: Mediastinal contours appear normal. Heart size is normal. Bones and chest wall: No suspicious bony lesions. Overlying soft tissues appear unremarkable. IMPRESSION: Suspect cavitary lesion in the right upper lung zone, differential including necrotizing pneumonia/as piration pneumonia versus mass. Recommend CT for further characterization. Reviewed by: Jose Angel Orellana on 08/28/2022 10:00 AM ROSALINO Approved by: Jose Angel Orellana on 08/28/2022 10:00 AM PDT Station ID: [id number]
[2022-08-28] MEDS: ENOXAPARIN 40 MG/0.4 ML SYRINGE SUBQ SCH (10:31)
[2022-08-28] MEDS: SODIUM CHLORIDE FLUSH 0.9% 10 ML SYRINGE IVP SCH ×2 (10:32→16:35)
[2022-08-28] MEDS: FAMOTIDINE 20 MG TABLET PO SCH ×2 (10:32→21:14)
[2022-08-28] MEDS: METOPROLOL TARTRATE 25 MG TABLET PO SCH ×2 (10:32→21:11)
[2022-08-28] MEDS: ASPIRIN CHEW 81 MG TABLET PO SCH (10:32)
[2022-08-28] MEDS: OMEGA-3 ACID ETHYL ESTERS 1 GM CAPSULE PO SCH ×2 (10:32→16:35)
[2022-08-28] MEDS: cefTRIAXone 2 GM in SODIUM CHLORIDE 0.9% MINIBAG 100 ML IV SCH (10:33)
[2022-08-28] MEDS: TAMSULOSIN 0.4 MG CAPSULE PO SCH (10:33)
[2022-08-28] MEDS: SACCHAROMYCES BOULARDII 250 MG CAPSULE PO SCH ×2 (10:33→16:35)
[2022-08-28] MEDS: guaiFENesin 600 MG TABLET PO SCH ×2 (10:33→21:11)
[2022-08-28] MEDS: MULTIVITAMIN W/MINERALS TABLET PO SCH (10:33)
[2022-08-28] MEDS: GABAPENTIN 100 MG CAPSULE PO SCH ×2 (13:46→21:11)
[2022-08-28] MEDS: VANCOMYCIN INJ 1 GM in SODIUM CHLORIDE 0.9% 250 ML IV SCH (14:00)
[2022-08-28] MEDS ORDERED: iohexoL-300 100 ML VIAL ONE (15:02)
--- NOTE | 2022-08-28 15:11 | PROVIDER PROGRESS NOTE ---
Progress Note Assessment/Plan - Problem List (1) Junctional bradycardia Assessment/Plan: Impression: On 08/19 the patient went into recurrent, brief episodes of junctional bradycardia with ventr rates of 10-30. She was transferred to the ICU. External pacer patches were put on as a precaution and the pacemaker device was moved into her ICU room, but she did not need to be externally paced. I put her on an Aminophylline continuous IV drip, to give her the desired side effect of a higher heart rate, for 24 hours Her labs were checked when she was transferred to the ICU. Her potassium was 5.5 which may have been the cause of the junctional bradycardia. The troponins were checked and EKG was done and these did not reveal an acute SC. Her Echo had been done earlier this admission which showed normal chamber sizes and normal LV and RV contractility. I stopped the Cardizem CD temporarily. Plan: About 12 hours after the aminophylline was stopped, yesterday her rhythm was normal sinus at 70-80. This afternoon she is going back into A-fib at 100-140 and I am restarting Cardizem po but at a lower dose She will be moved out of the ICU to [facility] on telemetry. (2) UTI Assessment/Plan: For the last several days she has had urinary retention and needed straight cath. On 08/19 a Paz catheter was inserted due to high volume on bladder scan. During that insertion she had white purulent urine drained. A urinalysis was sent off and this had many WBCs and many bacteria. That urine culture is growing nothing (probably because she had a partially treated UTI, from already being on cefepime for her pneumonia) All labs were reviewed. Her white count lucia, I suspect the persistently elevated WBC is from this newly found UTI Plan: I have kept her on her iv Cefepime, which had already been started for the HCAP (3) Acute urinary retention Assessment/Plan: For the last several nights the patient has had high residual on bladder scanning, showing urinary retention of 400-600. Straight caths were needed. I ordered a Paz insertion because of her severe shortness of breath even at rest, plus this urinary retention. The patient is on a bladder medication which has been continued here I suspect this acute UTI is what caused the urinary retention Plan: Cont Paz for now (4) Acute and chronic respiratory failure with hypoxia Assessment/Plan: Patient was more hypoxic several days ago and was only saturating 84%. She needed her supplemental O2 increased to an Oxymask as high as 8 L/min, then was able to titrate O2 down to 4L/min via Oxymask and now occiasional n.c. The work-up showed that she has a new pneumonia found ib CXR on her 3rd day here, and antibx were started after cx obtained. She was in new atrial flutter with RVR then too. All labs were reviewed. Troponins went from 7 to 20. I ordered her to be on oxy mask when she is asleep because she is a mouth breather Plan: Continue with empiric IV antibiotics to cover HCAP Await sputum and blood culture results Continue supplemental O2, target saturation is > 88% (5) HCAP (healthcare-associated pneumonia) Assessment/Plan: Her CXR on 08/17 showed a new RUL pneumonia. We obtained blood cx and sputum cx All labs were reviewed. Her white count lucia from 16.6 up to 27.7 w/ a L shift>> 27.6>> 25>> 25 today. I suspect the persistently elevated WBC is from that newly found UTI and now 2 days of iv steroid use Plan: Cont empiric antibx to cover a Healthcare-associated pneumonia: using IV vancomycin, and IV Cefepime. Cont Florastor Follow WBC August 22, 2022-sputum culture is growing E. coli so have DC'd vancomycin and kept her cefepime and added Flagyl for possibility of aspiration pneumonia August 23, 2022-sputum culture now is growing MRSA so have added back IV vancomyci -August 24, 2022 per pharmacy recommendations switching from cefepime to Rocephin which sensitivities of the culture show that is appropriate for the E. coli and will continue with IV vancomycin continue with IV Flagyl which was added for possibility of aspiration pneumonia also August 25, 2022-patient seems much more alert responsive and more active continue antibiotic regimen for at least a total of 7 days with this regimen given her sputum showing E. coli and MRSA (6) COPD exacerbation Assessment/Plan: This new pneumonia had caused her to wheeze. She now has a COPD exacerbation. She still has wet phlegm in upper airway, and she only clears her throat, she seems to be too weak to cough it up. I started Montelukast q pm Because of very poor air movement on exam, I added Solu-Medrol 40 mg tid Plan: Cont Xopenex nebulized bronchodilators, Montelukast Cont Mucinex and Solumedrol I also ordered chest PT TID, for expectoration, if she can tolerate it August 25, 2022-patient's Solu-Medrol was DC'd (6) Atrial flutter with rapid ventricular response Assessment/Plan: The patient went into new A-fib spontaneously converted back to sinus rhythm, then went into atrial flutter with RVR on 08/17, when she was at her worst resp distress. After her morning Cardizem dose, she converted to NSR. Then she had Paroxysms of atrial flutter with 2-1 and 3-1 block for several days. Troponins went from 7 to 20, likely rate-related demand ischemia. Her BNP was mildly elevated 208>> 246 Earlier, she was already having short runs of PSVT, at rates of 115. She had an Echocardiogram done her 08/15, which showed normal LV size and function and normal RV size and function Plan: I will put a hold on her Cardizem CD, because of the junctional heather rhythm. Today heart rate is 100-140 so Cardizem CD will be resumed but not at 240 mg but at 120 mg. 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 We are still adjusting her heart rate meds actively Her [id number] score is 1, so Aspirin daily, not anticoagulant is indicated, and she is on ASA daily August 26, 2022-patient did have RVR atrial fibrillation this a.m. patient was given IV metoprolol 5 mg and initiated on metoprolol 25 mg p.o. twice daily (7) Generalized weakness Assessment/Plan: The brain MRI showed only diffuse changes of atrophy, no evidence of old stroke or recent stroke. The patient does carry a diagnosis of polio, which may have given L>R leg weakness. On 08/17 her O2 sat was 83% at rest, while on n.c.so she was put boo oxymask. I ordered for patient to be put on suppl O2 via oxy mask whenever she is asleep or napping. She has been too tired to participate with rehab for several days On 08/18 I updated the visitors in the room, regarding her new pneumonia and her overall weakness. Renate confirmed that the pt has a very poor appetite and mostly eats cottage cheese and peaches, she also likes well cooked asparagus and chocolate pudding. Also that day Renate requested that I get a Neurology consult. On 08/18, I called and spoke to the Neurologist on-call, and reviewed the entire case, including the 2 falls at home. This Neurologist said that I had done due diligence for this patient, and had no new recommendations. Today 08/21, I updated her son Sin from [place], her biologic granddaughter Yvonne, the family friend Yolis, and Hortencia by phone, all at bedside in her room. Plan: Remain on lower gabapentin dose (300 mg tid was already decreased to 100 mg TID), and today I will decrease that to BID at 1300 & 2000 PT and OT to keep working with her, since she is deconditioned and felt too weak to do PT, the last 3 days. Our PT was recommending SNF for rehab. On 08/19, after being transferred to the ICU, her RN informed me that a daughter named Susan called from the [facility]. Apparently Renate had called Susan. The pt's RN Jesse received permission from [employer] to talk to Susan. Susan said that Renate is not her daughter and not even an adopted daughter but that the patient just lives with Renate. The patient has 7 children who are scattered all over the [facility]. I then called Renate again and asked whether she is the adopted daughter legally or verbally and Renate said she is "verbally" an adopted daughter. I then corrected Renate and said that legally she is just considered a friend, if there is no legal paperwork for adoption. Renate confirmed that there are many children and the closest is Sin who lives in [facility] and he was to come to visit the patient. On 08/20, at bedside was the "adopted granddaughter" who said she is also the "sister of Renate". When I remarked that Renate is not a blood relative to Tiffany, then she said she "feels like she is a sister to Renate, because they are so close". I told her that medical legally she is just considered a friend. I will speak to Social Work about these family interactions and ask Social Work to establish if there is the DPOA and who are all the people that we are allowed to speak with, about the pt. Today 08/21, I updated her son Sin Amor, her biologic granddaughter Yvonne, and the family friend Yolis, that medical legally if there is no one person designated as a DPOA, then all the current children (5 of 7 are alive), will need to agree on what we do, if the patient cannot make her own decisions (like she could not when she was obtunded and in junctional rhythm and was transferred to the ICU). (8) Fall at home Impression: Patient has a very bruised and mildly swollen left upper eyelid. That was the fall from several days ago. Following that she rolled out of bed 2 days later, landing on her left side she thinks. She complained of L sided pain s/p GLF and neck pain s/p GLF, in the ED. H/o recent L hip fracture s/p ORIF Her CSpine CT showed : DJD C1-C2, C5-C6, C6-C7 Her orthostatic vital signs reveal volume depletion, when checked the past several days. She received iv fluids for 2 days I restart Gabapentin at a lower dose of 100 mg TID not 300 mg TID She received 2 days of IV fluids, approximately 2 L positive in fluid balance. Chest x-ray today 08/17/2022 shows mild blunting of her costophrenic angles Plan: Since the patient has had recent orthostasis, I did not yet restarted her Lasix. Her IV fluids were stopped when BNP was noted to be elevated but I am resuming iv fluids today due to her poor po intake, D5W at 83.33 cc/hr. Remain on lower gabapentin dose (300 mg tid was decreased to 100 mg TID), and today I will decrease that to BID at 1300 & 2000 PT and OT rehab needs to continue (9) Severe protein calorie malnutrition The patient's BMI is only 17. She is cachectic, has temporal wasting and sunken eyes and diffuse muscle wasting and loss of subcutaneous fat. She screened for excessive weight loss, done by our Family Partner: Has had nutritional intake of less than 50% for 2 weeks or more, and has lost 12% of her weight in 6 months. Her labs showed a LDL of 48 and an HDL of 18, and she was on a statin at home. I ordered a more liberalized diet with Family Partner to take her meal choices I stopped her statin and will plan discharge off the statin. I started her on omega-3 tablet daily to increase her HDL On 08/18 I spoke to the daughter who was visiting in her room, who confirmed that her mother has a very poor appetite and mostly eats cottage cheese and peaches, she also likes well cooked asparagus and chocolate pudding. Today 08/21, when I asked what protein she eats, the family at bedside told me that she also likes peanut butter and hard-boiled eggs. Plan: I have added Boost to be given with all meals I will start Remeron to stimulate appetite. August 25, 2022-patient has significantly improved appetite and ate her food better than she has in the recent past.
--- NOTE | 2022-08-28 15:15 | PROVIDER PROGRESS NOTE ---
Assessment/Plan - Problem List (1) Junctional bradycardia Assessment/Plan: Assessment/Plan - Problem List (1) Junctional bradycardia Assessment/Plan: Impression: On 08/19 the patient went into recurrent, brief episodes of junctional bradycardia with ventr rates of 10-30. She was transferred to the ICU. External pacer patches were put on as a precaution and the pacemaker device was moved into her ICU room, but she did not need to be externally paced. I put her on an Aminophylline continuous IV drip, to give her the desired side effect of a higher heart rate, for 24 hours Her labs were checked when she was transferred to the ICU. Her potassium was 5.5 which may have been the cause of the junctional bradycardia. The troponins were checked and EKG was done and these did not reveal an acute SC. Her Echo had been done earlier this admission which showed normal chamber sizes and normal LV and RV contractility. I stopped the Cardizem CD temporarily. Plan: About 12 hours after the aminophylline was stopped, yesterday her rhythm was normal sinus at 70-80. This afternoon she is going back into A-fib at 100-140 and I am restarting Cardizem po but at a lower dose She will be moved out of the ICU to [facility] on telemetry. (2) UTI Assessment/Plan: For the last several days she has had urinary retention and needed straight cath. On 08/19 a Paz catheter was inserted due to high volume on bladder scan. During that insertion she had white purulent urine drained. A urinalysis was sent off and this had many WBCs and many bacteria. That urine culture is growing nothing (probably because she had a partially treated UTI, from already being on cefepime for her pneumonia) All labs were reviewed. Her white count lucia, I suspect the persistently elevated WBC is from this newly found UTI Plan: I have kept her on her iv Cefepime, which had already been started for the HCAP (3) Acute urinary retention Assessment/Plan: For the last several nights the patient has had high residual on bladder scanning, showing urinary retention of 400-600. Straight caths were needed. I ordered a Paz insertion because of her severe shortness of breath even at rest, plus this urinary retention. The patient is on a bladder medication which has been continued here I suspect this acute UTI is what caused the urinary retention Plan: Cont Paz for now (4) Acute and chronic respiratory failure with hypoxia Assessment/Plan: Patient was more hypoxic several days ago and was only saturating 84%. She needed her supplemental O2 increased to an Oxymask as high as 8 L/min, then was able to titrate O2 down to 4L/min via Oxymask and now occiasional n.c. The work-up showed that she has a new pneumonia found ib CXR on her 3rd day here, and antibx were started after cx obtained. She was in new atrial flutter with RVR then too. All labs were reviewed. Troponins went from 7 to 20. I ordered her to be on oxy mask when she is asleep because she is a mouth breather Plan: Continue with empiric IV antibiotics to cover HCAP Await sputum and blood culture results Continue supplemental O2, target saturation is > 88% (5) HCAP (healthcare-associated pneumonia) Assessment/Plan: Her CXR on 08/17 showed a new RUL pneumonia. We obtained blood cx and sputum cx All labs were reviewed. Her white count lucia from 16.6 up to 27.7 w/ a L shift>> 27.6>> 25>> 25 today. I suspect the persistently elevated WBC is from t hat newly found UTI and now 2 days of iv steroid use Plan: Cont empiric antibx to cover a Healthcare-associated pneumonia: using IV vancomycin, and IV Cefepime. Cont Florastor Follow WBC August 22, 2022-sputum culture is growing E. coli so have DC'd vancomycin and kept her cefepime and added Flagyl for possibility of aspiration pneumonia August 23, 2022-sputum culture now is growing MRSA so have added back IV vancomyci -August 24, 2022 per pharmacy recommendations switching from cefepime to Rocephin which sensitivities of the culture show that is appropriate for the E. coli and will continue with IV vancomycin continue with IV Flagyl which was added for possibility of aspiration pneumonia also August 25, 2022-patient seems much more alert responsive and more active continue antibiotic regimen for at least a total of 7 days with this regimen given her sputum showing E. coli and MRSA August 28, 2022-patient has been having increasing leukocytosis and is up to 33,000 currently have checked a UA and chest x-ray. Chest x-ray shows suspected cavitary lesion in the right upper lung zone differential including necrotizing pneumonia/aspiration pneumonia versus mass. Recommend CT scan which has been ordered and is pending. (6) COPD exacerbation Assessment/Plan: This new pneumonia had caused her to wheeze. She now has a COPD exacerbation. She still has wet phlegm in upper airway, and she only clears her throat, she seems to be too weak to cough it up. I started Montelukast q pm Because of very poor air movement on exam, I added Solu-Medrol 40 mg tid Plan: Cont Xopenex nebulized bronchodilators, Montelukast Cont Mucinex and Solumedrol I also ordered chest PT TID, for expectoration, if she can tolerate it August 25, 2022-patient's Solu-Medrol was DC'd (6) Atrial flutter with rapid ventricular response Assessment/Plan: The patient went into new A-fib spontaneously converted back to sinus rhythm, then went into atrial flutter with RVR on 08/17, when she was at her worst resp distress. After her morning Cardizem dose, she converted to NSR. Then she had Paroxysms of atrial flutter with 2-1 and 3-1 block for several days. Troponins went from 7 to 20, likely rate-related demand ischemia. Her BNP was mildly elevated 208>> 246 Earlier, she was already having short runs of PSVT, at rates of 115. She had an Echocardiogram done her 08/15, which showed normal LV size and function and normal RV size and function Plan: I will put a hold on her Cardizem CD, because of the junctional heather rhythm. Today heart rate is 100-140 so Cardizem CD will be resumed but not at 240 mg but at 120 mg. 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 We are still adjusting her heart rate meds actively Her [id number] score is 1, so Aspirin daily, not anticoagulant is indicated, and she is on ASA daily August 26, 2022-patient did have RVR atrial fibrillation this a.m. patient was given IV metoprolol 5 mg and initiated on metoprolol 25 mg p.o. twice daily (7) Generalized weakness Assessment/Plan: The brain MRI showed only diffuse changes of atrophy, no evidence of old stroke or recent stroke. The patient does carry a diagnosis of polio, which may have given L>R leg weakness. On 08/17 her O2 sat was 83% at rest, while on n.c.so she was put obo oxymask. I ordered for patient to be put on suppl O2 via oxy mask whenever she is asleep or napping. She has been too tired to participate with rehab for several days On 08/18 I updated the visitors in the room, regarding her new pneumonia and her overall weakness. Renate confirmed that the pt has a very poor appetite and mostly eats cottage cheese and peaches, she also likes well cooked asparagus and chocolate pudding. Also that day Renate requested that I get a Neurology consult. On 08/18, I called and spoke to the Neurologist on-call, and reviewed the entire case, including the 2 falls at home. This Neurologist said that I had done due diligence for this patient, and had no new recommendations. Today 08/21, I updated her son Sin from [place], her biologic granddaughter Yvonne, the family friend Yolis, and Hortencia by phone, all at bedside in her room. Plan: Remain on lower gabapentin dose (300 mg tid was already decreased to 100 mg TID), and today I will decrease that to BID at 1300 & 2000 PT and OT to keep working with her, since she is deconditioned and felt too weak to do PT, the last 3 days. Our PT was recommending SNF for rehab. On 08/19, after being transferred to the ICU, her RN informed me that a daughter named Susan called from the [facility]. Apparently Renate had called Susan. The pt's RN Jesse received permission from [facility] to talk to Susan. Susan said that Renate is not her daughter and not even an adopted daughter but that the patient just lives with Renate. The patient has 7 children who are scattered all over the [facility]. I then called Renate again and asked whether she is the adopted daughter legally or verbally and Renate said she is "verbally" an adopted daughter. I then corrected Renate and said that legally she is just considered a friend, if there is no legal paperwork for adoption. Renate confirmed that there are many children and the closest is Sin who lives in [facility] and he was to come to visit the patient. On 08/20, at bedside was the "adopted granddaughter" who said she is also the "sister of Renate". When I remarked that Renate is not a blood relative to Tiffany, then she said she "feels like she is a sister to Renate, because they are so close". I told her that medical legally she is just considered a friend. I will speak to Social Work about these family interactions and ask Social Work to establish if there is the DPOA and who are all the people that we are allowed to speak with, about the pt. Today 08/21, I updated her son Sin Amor, her biologic granddaughter Yvonne, and the family friend Yolis, that medical legally if there is no one person designated as a DPOA, then all the current children (5 of 7 are alive), will need to agree on what we do, if the patient cannot make her own decisions (like she could not when she was obtunded and in junctional rhythm and was transferred to the ICU). (8) Fall at home Impression: Patient has a very bruised and mildly swollen left upper eyelid. That was the fall from several days ago. Following that she rolled out of bed 2 days later, landing on her left side she thinks. She complained of L sided pain s/p GLF and neck pain s/p GLF, in the ED. H/o recent L hip fracture s/p ORIF Her CSpine CT showed : DJD C1-C2, C5-C6, C6-C7 Her orthostatic vital signs reveal volume depletion, when checked the past several days. She received iv fluids for 2 days I restart Gabapentin at a lower dose of 100 mg TID not 300 mg TID She received 2 days of IV fluids, approximately 2 L positive in fluid balance. Chest x-ray today 08/17/2022 shows mild blunting of her costophrenic angles Plan: Since the patient has had recent orthostasis, I did not yet restarted her Lasix. Her IV fluids were stopped when BNP was noted to be elevated but I am resuming iv fluids today due to her poor po intake, D5W at 83.33 cc/hr. Remain on lower gabapentin dose (300 mg tid was decreased to 100 mg TID), and today I will decrease that to BID at 1300 & 2000 PT and OT rehab needs to continue (9) Severe protein calorie malnutrition The patient's BMI is only 17. She is cachectic, has temporal wasting and sunken eyes and diffuse muscle wasting and loss of subcutaneous fat. She screened for excessive weight loss, done by our Controls Designer: Has had nutritional intake of less than 50% for 2 weeks or more, and has lost 12% of her weight in 6 months. Her labs showed a LDL of 48 and an HDL of 18, and she was on a statin at home. I ordered a more liberalized diet with Controls Designer to take her meal choices I stopped her statin and will plan discharge off the statin. I started her on omega-3 tablet daily to increase her HDL On 08/18 I spoke to the daughter who was visiting in her room, who confirmed that her mother has a very poor appetite and mostly eats cottage cheese and peaches, she also likes well cooked asparagus and chocolate pudding. Today 08/21, when I asked what protein she eats, the family at bedside told me that she also likes peanut butter and hard-boiled eggs. Plan: I have added Boost to be given with all meals I will start Remeron to stimulate appetite. August 25, 2022-patient has significantly improved appetite and ate her food better than she has in the recent past. - Current Meds Current Meds: Current Medications Generic Name Dose Route Start Last Admin Trade Name Sugey PRN Reason Stop Dose Admin Aspirin 81 mg 08/14/22 09:00 08/28/22 10:32 Aspirin Chew 81 Mg Tablet PO 81 mg DAILY HENOK Administration Enoxaparin Sodium 40 mg 08/14/22 09:00 08/28/22 10:31 Enoxaparin 40 Mg/0.4 Ml Syringe SUBQ 40 mg DAILY HENOK Administration Famotidine 20 mg 08/25/22 21:00 08/28/22 10:32 Famotidine 20 Mg Tablet PO 20 mg BID HENOK Administration Gabapentin 100 mg 08/21/22 13:00 08/28/22 13:46 Gabapentin 100 Mg Capsule PO Not Given 1299,2000 HENOK Guaifenesin 600 mg 08/17/22 10:00 08/28/22 10:33 Guaifenesin 600 Mg Tablet PO 600 mg BID HENOK Administration Ceftriaxone Sodium 2 gm/ 100 mls @ 200 mls/hr 08/24/22 11:00 08/28/22 11:05 Sodium Chloride IV Infused DAILY HENOK Infusion Vancomycin HCl 1 gm/ Sodium 250 mls @ 167 mls/hr 08/25/22 13:00 08/28/22 14:00 Chloride IV 167 mls/hr Q24H HENOK Administration Levalbuterol HCl 1.25 mg 08/17/22 14:59 08/28/22 11:32 Levalbuterol 1.25 Mg/3 Ml Neb INH 1.25 mg RTQID HENOK Administration Metoprolol Tartrate 37.5 mg 08/27/22 21:00 08/28/22 10:32 Metoprolol Tartrate 25 Mg Tablet PO 37.5 mg BID HENOK Administration Mirtazapine 15 mg 08/21/22 21:00 08/27/22 20:32 Mirtazapine 15 Mg Tablet PO 15 mg QPM HENOK Administration Montelukast Sodium 10 mg 08/19/22 21:00 08/27/22 20:32 Montelukast 10 Mg Tablet PO 10 mg QPM HENOK Administration Morphine Sulfate 2 mg 08/19/22 09:12 08/22/22 12:15 Morphine 2 Mg/Ml Carpuject IVP 2 mg Q4HR PRN Administration Dyspnea Multivitamins/Minerals 1 tab 08/15/22 17:00 08/28/22 10:33 Multivitamin W/Minerals Tablet PO 1 tab DAILYWM HENOK Administration [id number] Ethyl Esters 1 gm 08/20/22 17:00 08/28/22 10:32 [place]-3 Acid Ethyl Esters 1 Gm Capsule PO 1 gm BIDWM HENOK Administration Saccharomyces Boulardii 250 mg 08/17/22 17:00 08/28/22 10:33 Saccharomyces Boulardii 250 Mg Capsule PO 250 mg BIDWM HENOK Administration Sodium Chloride 10 ml 08/13/22 19:43 08/27/22 03:50 Sodium Chloride Flush 0.9% 10 Ml Syringe IVP 10 ml PRN PRN Administration NEEDED PER PROVIDER ORDERS Sodium Chloride 10 ml 08/14/22 01:00 08/28/22 10:32 Sodium Chloride Flush 0.9% 10 Ml Syringe IVP 10 ml 0100,0900,1700 HENOK Administration Tamsulosin HCl 0.4 mg 08/15/22 09:00 08/28/22 10:33 Tamsulosin 0.4 Mg Capsule PO 0.4 mg DAILY HENOK Administration - Lab Result Fish Bone Diagrams: 08/28/22 07:45 08/28/22 07:45 - Additional Planning My Orders: My Active Orders 08/27/22 17:26 Metoprolol Inj [Lopressor Inj] 5 mg IVP Q5MIN PRN 08/27/22 21:00 Metoprolol Tartrate [Lopressor] 37.5 mg PO BID 08/28/22 Urinalysis w/ Micro, Reflex Cult If [UA w/ MICROSCOPIC, CULT IF] [URIN] Urgent 08/28/22 12:01 CHEST W [CT] Routine 08/29/22 05:00 BMP, RFLX TO IONIZED CA IF [CHEM] DAILYLAB CBC - COMP BLD CT W/AUTO DIFF [HEME] DAILYLAB 08/30/22 05:00 BMP, RFLX TO IONIZED CA IF [CHEM] DAILYLAB CBC - COMP BLD CT W/AUTO DIFF [HEME] DAILYLAB 08/31/22 05:00 BMP, RFLX TO IONIZED CA IF [CHEM] DAILYLAB 09/01/22 05:00 BMP, RFLX TO IONIZED CA IF [CHEM] DAILYLAB Subjective - Subjective Patient Reports: Other (Patient is more interactive and gets out into the chair to eat) Objective Vital Signs: Vital Signs - 24 hr 08/27/22 08/27/22 08/27/22 15:24 16:10 17:00 Temperature 37.8 C 37 C Heart Rate 90 Heart Rate [ 99 Brachial] Heart Rate [ Monitoring electrodes] Respiratory 16 20 Rate Blood Pressure Blood Pressure 134/67 H [Right Brachial artery] O2 Saturation 89 L If not protocol 1 : Oxygen Flow, liters/minute 08/27/22 08/27/22 08/27/22 17:40 20:33 20:38 Temperature 36.7 C Heart Rate Heart Rate [ Brachial] Heart Rate [ 90 Monitoring electrodes] Respiratory 16 Rate Blood Pressure 128/74 124/62 Blood Pressure 124/62 [Right Brachial artery] O2 Saturation 90 L If not protocol 1 : Oxygen Flow, liters/minute 08/27/22 08/28/22 08/28/22 21:20 00:15 07:10 Temperature 36.7 C 36.8 C Heart Rate Heart Rate [ Brachial] Heart Rate [ 77 84 Monitoring electrodes] Respiratory 24 20 Rate Blood Pressure Blood Pressure 133/64 H 144/70 H [Right Brachial artery] O2 Saturation 90 L 92 If not protocol 1 1 1 : Oxygen Flow, liters/minute 08/28/22 08/28/22 08/28/22 07:30 10:32 12:55 Temperature 36.8 C Heart Rate 81 Heart Rate [ Brachial] Heart Rate [ 118 H Monitoring electrodes] Respiratory 22 24 Rate Blood Pressure 124/62 Blood Pressure 119/62 [Right Brachial artery] O2 Saturation 91 L If not protocol 1.5 1 : Oxygen Flow, liters/minute Oxygen O2 Source Nasal cannula I&O (Last 24 Hrs): Intake and Output Totals x24h 08/26/22 08/27/22 08/28/22 23:59 23:59 23:59 Intake Total 1330 1230 540 Output Total 3825 7504 500 Balance -3434 -646 40 General: Alert, Oriented x3, Cooperative HEENT: Atraumatic Neck: Supple Neuro: Alert, Non Focal, Oriented Times 3 Cardiovascular: Other (Irregular regular rate and rhythm S1-S2 controlled rate) Respiratory: Rales (Scattered) Extremities: No edema - Results Results: Laboratory Results WBC 33.0 x10^3/uL (4.8-10.8) H 08/28/22 07:45 RBC 4.46 10^6/uL (4.20-5.40) 08/28/22 07:45 Hgb 12.3 g/dL (12.0-16.0) 08/28/22 07:45 Hct 40.6 % (37.0-47.0) 08/28/22 07:45 MCV 91.0 fL (81.0-99.0) 08/28/22 07:45 MCH 27.6 pg (27.0-31.0) 08/28/22 07:45 MCHC 30.3 g/dL (32.0-36.0) L 08/28/22 07:45 RDW 14.4 % (12.0-15.0) 08/28/22 07:45 Plt Count 373 10^3/uL (130-450) 08/28/22 07:45 MPV 10.0 fL (7.9-10.8) 08/28/22 07:45 Neut # (Auto) 29.5 10^3/uL (1.5-6.6) H 08/28/22 07:45 Lymph # (Auto) 1.8 10^3/uL (1.5-3.5) 08/28/22 07:45 [place] # (Auto) 1.1 10^3/uL (0.0-1.0) H 08/28/22 07:45 Eos # (Auto) 0.2 10^3/uL (0.0-0.7) 08/28/22 07:45 Baso # (Auto) 0.1 10^3/uL (0.0-0.1) 08/28/22 07:45 Absolute Nucleated RBC 0.00 x10^3/uL 08/28/22 07:45 Total Counted 100 08/27/22 07:45 Band Neuts % (Manual) 0 % (0-10) 08/27/22 07:45 Reactive Lymphs % (Man) 2 % 08/21/22 07:41 Abnorm Lymph % (Manual) 0 % 08/27/22 07:45 Metamyelocytes % 1 % (-0) H 08/26/22 08:09 Nucleated RBC % 0.0 /100WBC 08/28/22 07:45 Neutrophils # (Manual) 20.6 10^3/uL (1.5-6.6) H 08/27/22 07:45 Lymphocytes # (Manual) 3.4 10^3/uL (1.5-3.5) 08/27/22 07:45 Monocytes # (Manual) 0.5 10^3/uL (0.0-1.0) 08/27/22 07:45 Eosinophils # (Manual) 0.0 10^3/uL (0-0.7) 08/27/22 07:45 Basophils # (Manual) 0.0 10^3/uL (0-0.1) 08/27/22 07:45 Differential Comment MANUAL DIFFERENTIAL 08/27/22 07:45 Manual Slide Review Indicated 08/28/22 07:45 WBC Morphology (NORMAL) 08/28/22 07:45 Platelet Estimate NORMAL (130-450,000) (NORMAL) 08/28/22 07:45 Platelet Morphology NORMAL APPEARANCE (NORMAL) 08/28/22 07:45 RBC Morph Micro Appear NORMAL APPEARANCE (NORMAL) 08/28/22 07:45 Bld Gas Analysis Time 0543 08/17/22 05:40 Sample Site RIGHT RADIAL 08/17/22 05:40 ABG pH 7.38 (7.35-7.45) 08/17/22 05:40 ABG pCO2 59 mmHg (34-45) H 08/17/22 05:40 ABG pO2 138 mmHg (80-100) H 08/17/22 05:40 ABG HCO3 34.0 mmol/L (22.0-26.0) H 08/17/22 05:40 ABG Total CO2 35.8 MMOL/L (21.0-29.0) H 08/17/22 05:40 ABG O2 Saturation 99 % (94-98) H 08/17/22 05:40 ABG Base Excess 7.0 mmol/L (-2.0-3.0) H 08/17/22 05:40 Migue Test POSITIVE 08/17/22 05:40 VBG pH 7.342 (7.31-7.41) 08/28/22 08:50 Ionized Calcium 1.09 mmol/L (1.15-1.33) L 08/28/22 08:50 O2 Delivery Device OXYMASK 08/17/22 05:40 O2 Liters/Min 6.00 LPM 08/17/22 05:40 FiO2 44.00 08/17/22 05:40 Sodium 140 mmol/L (135-145) 08/28/22 07:45 Potassium 3.5 mmol/L (3.5-5.0) 08/28/22 07:45 Chloride 100 mmol/L (101-111) L 08/28/22 07:45 Carbon Dioxide 36 mmol/L (21-32) H 08/28/22 07:45 Anion Gap 4.0 (6-13) L 08/28/22 07:45 BUN 12 mg/dL (6-20) 08/28/22 07:45 Creatinine 0.6 mg/dL (0.4-1.0) 08/28/22 07:45 Estimated GFR (MDRD) 96 (>89) 08/28/22 07:45 Glucose 122 mg/dL (70-100) H 08/28/22 07:45 Calcium 7.9 mg/dL (8.5-10.3) L 08/28/22 07:45 Ionized Calcium YES 08/28/22 07:45 Phosphorus 2.6 mg/dL (2.5-4.6) 08/22/22 05:16 Magnesium 2.3 mg/dL (1.7-2.8) 08/22/22 18:26 Total Bilirubin 0.5 mg/dL (0.2-1.0) 08/25/22 07:15 AST 22 IU/L (10-42) 08/25/22 07:15 ALT 39 IU/L (10-60) 08/25/22 07:15 Alkaline Phosphatase 82 IU/L (42-121) 08/25/22 07:15 Total Creatine Kinase 16 IU/L (22-269) L 08/13/22 16:15 Troponin I High Sens 9.8 ng/L (2.3-14.8) 08/19/22 17:49 B-Natriuretic Peptide 246 pg/mL (5-100) H 08/18/22 08:05 Total Protein 5.5 g/dL (6.7-8.2) L 08/25/22 07:15 Albumin 2.1 g/dL (3.2-5.5) L 08/25/22 07:15 Globulin 3.4 g/dL (2.1-4.2) 08/25/22 07:15 Albumin/Globulin Ratio 0.6 (1.0-2.2) L 08/25/22 07:15 Triglycerides 68 mg/dL (-149) 08/14/22 05:04 Cholesterol 60 mg/dL (-199) 08/14/22 05:04 LDL Cholesterol, Calc 28 mg/dL (-129) 08/14/22 05:04 VLDL Cholesterol 14 mg/dL 08/14/22 05:04 HDL Cholesterol 18 mg/dL (60-) L 08/14/22 05:04 LDL/HDL Ratio 1.6 (<4.4) 08/14/22 05:04 Cholesterol/HDL Ratio 3.3 (<4.4) 08/14/22 05:04 Urine Color YELLOW 08/19/22 14:00 Urine Clarity CLOUDY (CLEAR) 08/19/22 14:00 Urine pH 5.5 PH (5.0-7.5) 08/19/22 14:00 Ur Specific [place] 1.025 (1.002-1.030) 08/19/22 14:00 Urine Protein 30 mg/dL (NEGATIVE) H 08/19/22 14:00 Urine Glucose (UA) NEGATIVE mg/dL (NEGATIVE) 08/19/22 14:00 Urine Ketones NEGATIVE mg/dL (NEGATIVE) 08/19/22 14:00 Urine Occult Blood SMALL (NEGATIVE) H 08/19/22 14:00 Urine Nitrite NEGATIVE (NEGATIVE) 08/19/22 14:00 Urine Bilirubin NEGATIVE (NEGATIVE) 08/19/22 14:00 Urine Urobilinogen 0.2 (NORMAL) E.U./dL (NORMAL) 08/19/22 14:00 Ur Leukocyte Esterase LARGE (NEGATIVE) H 08/19/22 14:00 Urine RBC 11-25 /HPF (0-5) H 08/19/22 14:00 Urine WBC >25 /HPF (0-5) H 08/19/22 14:00 Urine WBC Clumps Cancelled 08/19/22 10:40 Ur Epithelial Cells Cancelled 08/19/22 10:40 Ur Squamous Epith Cells RARE Squamous (<= Few) 08/19/22 14:00 Urine Crystals Cancelled 08/19/22 10:40 Amorphous Sediment Cancelled 08/19/22 10:40 Urine Bacteria Moderate /HPF (None Seen) H 08/19/22 14:00 Urine Casts Cancelled 08/19/22 10:40 Urine Starch Cancelled 08/19/22 10:40 Urine Mucus Cancelled 08/19/22 10:40 Urine Trichomonas Cancelled 08/19/22 10:40 Urine Yeast Cancelled 08/19/22 10:40 Urine Sperm Cancelled 08/19/22 10:40 Ur Oval Fat Bodies Cancelled 08/19/22 10:40 Ur Microscopic Review NOT INDICATED 08/13/22 17:52 Urine Culture Comments INDICATED 08/19/22 14:00 Nasal Screen MRSA (PCR) NEGATIVE (NEGATIVE) 08/19/22 16:35 Last Dose Date 08/20/22 08/20/22 14:16 Last Dose Time 1312 08/20/22 14:16 Vancomycin Peak 36.3 ug/mL (20.0-40.0) 08/20/22 14:16 Vancomycin Trough 14.6 ug/mL (10.0-20.0) 08/20/22 09:32 SARS-CoV-2 (PCR) NOT DETECTED 08/18/22 08:43 - Procedures Procedures: Procedures EXCISION OF CECUM, ENDO (03/24/19) EXCISION OF SIGMOID COLON, ENDO (03/24/19) EXCISION OF TRANSVERSE COLON, ENDO (03/24/19) ABX Reporting Has patient been on IV antibiotics over the past 48 hours?: Yes
[2022-08-28] MEDS: MONTELUKAST 10 MG TABLET PO SCH (21:15)
[2022-08-28] MEDS: MIRTAZAPINE 15 MG TABLET PO SCH (21:19)
[2022-08-28] MEDS ORDERED: iohexoL-300 100 ML VIAL IVP ONE (21:31)
[2022-08-29 03:40] LABS: BILIRUBIN,URINE NEGATIVE (NEGATIVE); GLUCOSE, URINE (UA) NEGATIVE (NEGATIVE); KETONES,URINE (UA) NEGATIVE (NEGATIVE); LEUKOCYTE ESTERASE, URINE NEGATIVE (NEGATIVE); NITRITE,URINE NEGATIVE (NEGATIVE); OCCULT BLOOD,URINE NEGATIVE (NEGATIVE); PH,URINE 6.5 PH (5.0-7.5); PROTEIN,URINE 30 mg/dL (NEGATIVE); UROBILINOGEN,URINE 0.2 (NORMAL) E.U./dL (NORMAL)
[2022-08-29 03:51] LABS: BACTERIA,URINE Rare /HPF (None Seen); CLARITY,URINE CLEAR (CLEAR); RBC,URINE 0-5 /HPF (0-5); SQUAMOUS EPITHELIAL CELL,UR NONE SEEN (<= Few); WBC,URINE 0-3 /HPF (0-5)
[2022-08-29] MEDS: SODIUM CHLORIDE FLUSH 0.9% 10 ML SYRINGE IVP SCH ×3 (04:40→16:26)
[2022-08-29] MEDS: LEVALBUTEROL 1.25 MG/3 ML NEB INH SCH ×4 (05:59→19:40)
[2022-08-29 06:09] LABS: BASOPHILS % (AUTO) 0.2 %; EOSINOPHILS % (AUTO) 0.8 %; HCT - HEMATOCRIT 36.7 % (37.0-47.0); HGB - HEMOGLOBIN 10.9 g/dL (12.0-16.0); LYMPHOCYTES % (AUTO) 7.4 %; MEAN CORPUSCULAR HEMOGLOBIN 27.3 pg (27.0-31.0); MEAN CORPUSCULAR HGB CONC 29.7 g/dL (32.0-36.0); MEAN CORPUSCULAR VOLUME 91.8 fL (81.0-99.0); MEAN PLATELET VOLUME 9.8 fL (7.9-10.8); NEUTROPHILS % (AUTO) 86.8 %; PLT - PLATELET COUNT 340 10^3/uL (130-450); RED CELL DISTRIBUTION WIDTH 14.3 % (12.0-15.0); WHITE BLOOD COUNT 23.7 x10^3/uL (4.8-10.8)
[2022-08-29 06:11] LABS: ABNORMAL LYMPHS % (MANUAL) 0 %; BAND NEUTROPHILS % (MANUAL) 0 %
[2022-08-29 06:18] LABS: BUN - BLOOD UREA NITROGEN 10 mg/dL (6-20); CALCIUM 7.8 mg/dL (8.5-10.3); CARBON DIOXIDE - CO2 36 mmol/L (21-32); CHLORIDE 98 mmol/L (101-111); CREATININE 0.6 mg/dL (0.4-1.0); GFR - MDRD 96 (>89); GLUCOSE 107 mg/dL (70-100); IONIZED CALCIUM IF INDICATED YES; POTASSIUM 3.4 mmol/L (3.5-5.0); SODIUM 140 mmol/L (135-145)
[2022-08-29 06:21] LABS: CALCIUM, IONIZED 1.11 mmol/L (1.15-1.33); VBG PH 7.347 (7.31-7.41)
[2022-08-29 06:22] LABS: EOSINOPHILS # (MANUAL) 0.2 10^3/uL (0-0.7); LYMPHOCYTES # (MANUAL) 1.9 10^3/uL (1.5-3.5); LYMPHOCYTES % (MANUAL) 8 %; MONOCYTES # (MANUAL) 1.2 10^3/uL (0.0-1.0); NEUTROPHILS # (MANUAL) 20.4 10^3/uL (1.5-6.6)
[2022-08-29 06:23] LABS: DIFFERENTIAL COMMENT MANUAL DIFFERENTIAL; PLATELET ESTIMATE, MANUAL NORMAL (130-450,000) (NORMAL); PLATELET MORPHOLOGY NORMAL APPEARANCE (NORMAL); RBC MORPHOLOGY (MULTIPLE) 1+ ANISOCYTOSIS (NORMAL); WBC MORPHOLOGY (MULTIPLE) NORMAL APPEARANCE (NORMAL)
[2022-08-29] MEDS: guaiFENesin 600 MG TABLET PO SCH ×2 (09:29→22:39)
[2022-08-29] MEDS: OMEGA-3 ACID ETHYL ESTERS 1 GM CAPSULE PO SCH ×2 (09:29→16:26)
[2022-08-29] MEDS: MULTIVITAMIN W/MINERALS TABLET PO SCH (09:29)
[2022-08-29] MEDS: ASPIRIN CHEW 81 MG TABLET PO SCH (09:30)
[2022-08-29] MEDS: METOPROLOL TARTRATE 25 MG TABLET PO SCH ×2 (09:30→22:39)
[2022-08-29] MEDS: SACCHAROMYCES BOULARDII 250 MG CAPSULE PO SCH ×2 (09:30→16:26)
[2022-08-29] MEDS: FAMOTIDINE 20 MG TABLET PO SCH ×2 (09:30→22:42)
[2022-08-29] MEDS: TAMSULOSIN 0.4 MG CAPSULE PO SCH (09:30)
[2022-08-29] MEDS: ENOXAPARIN 40 MG/0.4 ML SYRINGE SUBQ SCH (09:34)
[2022-08-29] MEDS: cefTRIAXone 2 GM in SODIUM CHLORIDE 0.9% MINIBAG 100 ML IV SCH (09:34)
[2022-08-29 09:37] LABS: ABG PO2 67 mmHg (80-100)
[2022-08-29 09:38] LABS: ABG BASE EXCESS 11.8 mmol/L (-2.0-3.0); ABG OXYGEN SATURATION 94 % (94-98); ALLEN TEST POSITIVE
[2022-08-29 09:41] LABS: ABG PCO2 64 mmHg (34-45)
[2022-08-29] MEDS: GABAPENTIN 100 MG CAPSULE PO SCH ×2 (12:44→22:39)
[2022-08-29] MEDS: VANCOMYCIN INJ 1 GM in SODIUM CHLORIDE 0.9% 250 ML IV SCH (12:44)
--- NOTE | 2022-08-29 16:13 | CT Report ---
PROCEDURE: CHEST W INDICATIONS: worseninb g pneumonia CONTRAST: 100mL Omni 300 TECHNIQUE: After the administration of intravenous contrast, 1 mm axial images were acquired from the pulmonary apices through the posterior costophrenic angles. Axial 5 mm soft tissue kernel reconstructions were performed as well as 8 mm axial MIP and coronal and sagittal 5 mm reformations. For radiation dose reduction, the following was used: automated exposure control, adjustment of mA and/or kV according to patient size. COMPARISON: Serial chest films dated 07/20/2022, 08/13/2022, 08/22/2022, and 08/28/2022. FINDINGS: Image quality: Excellent. Lungs and pleura: Serial chest films demonstrate a process in which on the initial film from early y, there was no airspace consolidation, with serial films demonstrating development of a cavitary pne umonia, in which, in retrospect, the cavity was present relatively early on, first appearing on 2022. The overall area of consolidation has increased in size over time. Currently, there is a thick walled cavitary lesion with debris inside lesion. The largest cavity is present in the posterior righ t upper lobe, and measures approximately 4.5 cm in diameter. Additionally, there is a second cavitary lesion, in the superior segment of the right upper lobe, measures 2.6 cm. There is adjacent airspace consolidation, predominantly in the posterior segment of right upper lobe, but also in the periphery of the superior segment of the right lower lobe. There is a left apical pulmonary nodule image 60 of series 4 which measures 5 mm. There is mild to mo derate emphysematous change. Mild bilateral pleural effusions with compressive bibasilar atelectasis. Mediastinum: Heart size is normal. Severe coronary artery calcifications. Small pericardial effusion. No large vessel abnormality. No mediastinal adenopathy by size criteria. Chest wall and lower neck: Thyroid is unremarkable. No axillary or supraclavicular adenopathy by size . Bones: No aggressive osseous abnormality. Upper Abdomen: Unremarkable. IMPRESSION: 1. Underlying emphysematous change. 2. Cavitary pneumonia, posterior segment right upper lobe greater than superior segment right lower l obe. 3. 5 mm left apical pulmonary nodule, potentially inflammatory, infectious, or malignant in etiology. 4. Small bilateral pleural effusions with bibasilar atelectasis. 5. Severe coronary artery atherosclerotic calcifications. Comment: A cavitary pneumonia can potentially represent a bacterial pneumonia or a fungal pneumonia. Comment: Recommend progress films until clear. Additionally, recommend six-month follow-up CT for the left apical pulmonary nodule. Reviewed by: Zheng Verdin MD on 08/29/2022 4:11 PM PDT Approved by: Zheng Verdin MD on 08/29/2022 4:11 PM PDT Station ID: [id number]
--- NOTE | 2022-08-29 17:56 | PROVIDER PROGRESS NOTE ---
Assessment/Plan - Problem List (1) Sinus pause Assessment/Plan: Today on telemetry the patient had a 4.8-second pause, came out of A-fib with that and went into sinus rhythm Plan: I will decrease the metoprolol from 37.5 twice daily down to 12.5 twice daily Remain on telemetry I suspect this patient has tachy-bradycardia syndrome. I will discuss with her if she has any desire to be considered for transfer for placing a pacemaker and EP/cardiology consultation (2) Acute and chronic respiratory failure with hypoxia Assessment/Plan: Assessment/Plan: Patient was more hypoxic several days ago and work-up showed that she has a new pneumonia found on CXR on her 3rd day here, and antibx were started after cx obtained. She was in new atrial flutter with RVR then too. All labs were reviewed. Troponins went from 7 to 20. I ordered her to be on oxy mask when she is asleep because she is a mouth breather Plan: Continue supplemental O2, target saturation is > 88% (3) Cavitary lesion of lung Assessment/Plan: Her CXR on 08/17 showed a new RUL pneumonia. We obtained blood cx and sputum cx We had her on antibx to cover a Healthcare-associated pneumonia: using IV vancomycin, and IV Cefepime. August 22, 2022-sputum culture grew E. coli so we DC'd vancomycin and kept her cefepime and added Flagyl for possibility of aspiration pneumonia August 23, 2022-sputum culture then grew MRSA so we added back IV vancomycin August 24, 2022 per pharmacy recommendations switching from cefepime to Rocephin which sensitivities of the culture show that is appropriate for the E. coli and will continue with IV vancomycin continue with IV Flagyl which was added for possibility of aspiration pneumonia also August 25, 2022-patient seemed more alert & responsive and we continued that antibiotic combination regimen for at least a total of 7 days, since her sputum grew E. coli and MRSA August 28, 2022-patient was having increasing leukocytosis and is up to 33,000. Chest x-ray showed a suspected cavitary lesion in the right upper lung zone; differential included necrotizing pneumonia/aspiration pneumonia versus mass. The CT scan was done 08/28 and was read as having a cavitary lesion enlarging during her time here, which could be PNA from fungus vs bacteria Plan: Continue with iv Vanco Will stop iv Ceftriaxone after today, which is day Will add an anti fungal: iv Fluconazole (4) Generalized weakness Assessment/Plan: The brain MRI showed only diffuse changes of atrophy, no evidence of old stroke or recent stroke. The patient does carry a diagnosis of polio, which may have given L>R leg weakness. On 08/17 her O2 sat was 83% at rest, while on n.c.so she was put boo oxymask. I ordered for patient to be put on suppl O2 via oxy mask whenever she is asleep or napping. She has been too tired to participate with rehab for several days On 08/18 I updated the visitors in the room, regarding her new pneumonia and her overall weakness. Renate confirmed that the pt has a very poor appetite and mostly eats cottage cheese and peaches, she also likes well cooked asparagus and chocolate pudding. Also that day Renate requested that I get a Neurology consult. On 08/18, I called and spoke to the Neurologist on-call, and reviewed the entire case, including the 2 falls at home. This Neurologist said that I had done due diligence for this patient, and had no new recommendations. On 08/19, after being transferred to the ICU, her RN informed me that a daughter named Susan called from the [facility]. Apparently Renate had called Susan. The pt's RN Jesse received permission from Tiffany to talk to Susan. Susan said that Renate is not her daughter and not even an adopted daughter but that the patient just lives with Renate. The patient has 7 children who are scattered all over the [facility]. I then called Renate again and asked whether she is the adopted daughter legally or verbally and Renate said she is "verbally" an adopted daughter. I then corrected Renate and said that legally she is just considered a friend, if there is no legal paperwork for adoption. Renate confirmed that there are many children and the closest is Sin who lives in [facility] and he was to come to visit the patient. On 08/20, at bedside was the "adopted granddaughter" who said she is also the "sister of Renate". When I remarked that Renate is not a blood relative to Tiffany, then she said she "feels like she is a sister to Renate, because they are so close". I told her that medical legally she is just considered a friend. I spoke to Social Work about these family interactions and ask Social Work to establish if there is the DPOA and who are all the people that we are allowed to speak with, about the pt. On 08/21, I updated her son Sin from [place], her biologic granddaughter Yvonne, the family friend Yolis, daughter Hortencia was on the phone, all others at bedside in her room. that medical legally if there is no one person designated as a DPOA, then all the current children (5 of 7 are alive), will need to agree on what we do, if the patient cannot make her own decisions (like she could not when she was obtunded and in junctional rhythm and was transferred to the ICU). Plan: Remain on lower gabapentin dose (300 mg tid was already decreased to 100 mg TID), and today I will decrease that to BID at 1300 & 2000 PT and OT to keep working with her, since she is deconditioned and felt too weak to do PT, the last 3 days. Our PT was recommending SNF for rehab. (5) Fall at home Impression: Patient has a very bruised and mildly swollen left upper eyelid. That was the fall from several days ago. Following that she rolled out of bed 2 days later, landing on her left side she thinks. She complained of L sided pain s/p GLF and neck pain s/p GLF, in the ED. H/o recent L hip fracture s/p ORIF Her CSpine CT showed : DJD C1-C2, C5-C6, C6-C7 Her orthostatic vital signs reveal volume depletion, when checked the past several days. She received iv fluids for 2 days I restarted Gabapentin at a lower dose of 100 mg TID not 300 mg TID She received 2 days of IV fluids, approximately 2 L positive in fluid balance. Chest x-ray today 08/17/2022 shows mild blunting of her costophrenic angles Plan: Since the patient has had recent orthostasis, I did not yet restarted her Lasix. Her IV fluids were stopped when BNP was noted to be elevated but I am resuming iv fluids today due to her poor po intake, D5W at 83.33 cc/hr. Remain on lower gabapentin dose (300 mg tid was decreased to 100 mg TID), and today I will decrease that to BID at 1300 & 2000 PT and OT rehab needs to continue (6) Severe protein calorie malnutrition The patient's BMI is only 17. She is cachectic, has temporal wasting and sunken eyes and diffuse muscle wasting and loss of subcutaneous fat. She screened for excessive weight loss, done by our Pharm[facility]: Has had nutritional intake of less than 50% for 2 weeks or more, and has lost 12% of her weight in 6 months. Her labs showed a LDL of 48 and an HDL of 18, and she was on a statin at home. I ordered a more liberalized diet with Pharmacy [facility] to take her meal choices I stopped her statin and will plan discharge off the statin. I started her on omega-3 tablet daily to increase her HDL On 08/18 I spoke to the daughter who was visiting in her room, who confirmed that her mother has a very poor appetite and mostly eats cottage cheese and peaches, she also likes well cooked asparagus and chocolate pudding. On 08/21, when I asked what protein she eats, the family at bedside told me that she also likes peanut butter and hard-boiled eggs. On 08/25, patient had improved appetite and ate her food better than she has in the recent past. On 08/26 thru no, she is again only eating bites all day Plan: I have added Boost to be given with all meals I will start Remeron to stimulate appetite. (7) UTI Assessment/Plan: For the last several days she has had urinary retention and needed straight cath. On 08/19 a Paz catheter was inserted due to high volume on bladder scan. During that insertion she had white purulent urine drained. A urinalysis was sent off and this had many WBCs and many bacteria. That urine culture is growing nothing (probably because she had a partially treated UTI, from already being on cefepime for her pneumonia) All labs were reviewed. Her white count lucia, I suspect the persistently elevated WBC was initially from this newly found UTI Plan: I have kept her on her iv antibx which were started for the HCAP (8) Acute urinary retention Assessment/Plan: For the last several nights the patient has had high residual on bladder scanning, showing urinary retention of 400-600. Straight caths were needed. I ordered a Paz insertion because of her severe shortness of breath even at rest, plus this urinary retention. The patient is on a bladder medication which has been continued here I suspect this acute UTI is what caused the urinary retention Plan: Cont Paz for now (9) COPD with hypoxia Assessment/Plan: This new pneumonia had caused her to wheeze. She now has a COPD exacerbation. She still has wet phlegm in upper airway, and she only clears her throat, she seems to be too weak to cough it up. I started Montelukast q pm Because of very poor air movement on exam, I added Solu-Medrol 40 mg tid. August 25, 2022-patient's Solu-Medrol was DC'd Plan: Cont Xopenex nebulized bronchodilators, Montelukast Cont Mucinex and Solumedrol I also ordered chest PT TID, for expectoration, if she can tolerate it (10) Paroxysmal Atrial flutter Assessment/Plan: The patient went into new A-fib spontaneously converted back to sinus rhythm, then went into atrial flutter with RVR on 08/17, when she was at her worst resp distress. After her morning Cardizem dose, she converted to NSR. Then she had Paroxysms of atrial flutter with 2-1 and 3-1 block for several days. Troponins went from 7 to 20, likely rate-related demand ischemia. Her BNP was mildly elevated 208>> 246 Earlier, she was already having short runs of PSVT, at rates of 115. She had an Echocardiogram done her 08/15, which showed normal LV size and function and normal RV size and function Plan: I will put a hold on her Cardizem CD, because of the junctional heather rhythm.When heart rate was 100-140 so Cardizem CD will be resumed but not at 240 mg but at 120 mg. August 26, 2022-patient did have RVR atrial fibrillation this a.m. patient was given IV metoprolol 5 mg and initiated on metoprolol 25 mg p.o. twice daily Plan: This patient may have tachybradycardia syndrome. 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 She was transferred to the ICU. External pacer patches were put on as a precaution and the pacemaker device was moved into her ICU room, but she did not need to be externally paced. I put her on an Aminophylline continuous IV drip, to give her the desired side effect of a higher heart rate, for 24 hours Her labs were checked when she was transferred to the ICU. Her potassium was 5.5 which may have been the cause of the junctional bradycardia. The troponins were checked and EKG was done and these did not reveal an acute [place]. Her Echo had been done earlier this admission which showed normal chamber sizes and normal LV and RV contractility. About 12 hours after the aminophylline was stopped, her rhythm was normal sinus at 70-80. Plan: I stopped the Cardizem CD temporarily. - Current Meds Current Meds: Current Medications Generic Name Dose Route Start Last Admin Trade Name Freq PRN Reason Stop Dose Admin Aspirin 81 mg 08/14/22 09:00 08/29/22 09:30 Aspirin Chew 81 Mg Tablet PO 81 mg DAILY HENOK Administration Enoxaparin Sodium 40 mg 08/14/22 09:00 08/29/22 09:34 Enoxaparin 40 Mg/0.4 Ml Syringe SUBQ 40 mg DAILY HENOK Administration Famotidine 20 mg 08/25/22 21:00 08/29/22 09:30 Famotidine 20 Mg Tablet PO 20 mg BID HENOK Administration Gabapentin 100 mg 08/21/22 13:00 08/29/22 12:44 Gabapentin 100 Mg Capsule PO 100 mg 1300,2000 HENOK Administration Guaifenesin 600 mg 08/17/22 10:00 08/29/22 09:29 Guaifenesin 600 Mg Tablet PO 600 mg BID HENOK Administration Ceftriaxone Sodium 2 gm/ 100 mls @ 200 mls/hr 08/24/22 11:00 08/29/22 10:25 Sodium Chloride IV Infused DAILY HENOK Infusion Vancomycin HCl 1 gm/ Sodium 250 mls @ 167 mls/hr 08/25/22 13:00 08/29/22 12:44 Chloride IV 167 mls/hr Q24H HENOK Administration Levalbuterol HCl 1.25 mg 08/17/22 14:59 08/29/22 14:57 Levalbuterol 1.25 Mg/3 Ml Neb INH 1.25 mg RTQID HENOK Administration Metoprolol Tartrate 37.5 mg 08/27/22 21:00 08/29/22 09:30 Metoprolol Tartrate 25 Mg Tablet PO 37.5 mg BID HENOK Administration Mirtazapine 15 mg 08/21/22 21:00 08/28/22 21:19 Mirtazapine 15 Mg Tablet PO 15 mg QPM HENOK Administration Montelukast Sodium 10 mg 08/19/22 21:00 08/28/22 21:15 Montelukast 10 Mg Tablet PO 10 mg QPM HENOK Administration Morphine Sulfate 2 mg 08/19/22 09:12 08/22/22 12:15 Morphine 2 Mg/Ml Carpuject IVP 2 mg Q4HR PRN Administration Dyspnea Multivitamins/Minerals 1 tab 08/15/22 17:00 08/29/22 09:29 Multivitamin W/Minerals Tablet PO 1 tab DAILYWM HENOK Administration Skrdi-5-Jecp Ethyl Esters 1 gm 08/20/22 17:00 08/29/22 16:26 Lutz-3 Acid Ethyl Esters 1 Gm Capsule PO 1 gm BIDWM HENOK Administration Saccharomyces Boulardii 250 mg 08/17/22 17:00 08/29/22 16:26 Saccharomyces Boulardii 250 Mg Capsule PO 250 mg BIDWM HENOK Administration Sodium Chloride 10 ml 08/13/22 19:43 08/27/22 03:50 Sodium Chloride Flush 0.9% 10 Ml Syringe IVP 10 ml PRN PRN Administration NEEDED PER PROVIDER ORDERS Sodium Chloride 10 ml 08/14/22 01:00 08/29/22 16:26 Sodium Chloride Flush 0.9% 10 Ml Syringe IVP 10 ml 0100,0900,1700 HENOK Administration Tamsulosin HCl 0.4 mg 08/15/22 09:00 08/29/22 09:30 Tamsulosin 0.4 Mg Capsule PO 0.4 mg DAILY HENOK Administration - Lab Result Fish Bone Diagrams: 09/06/22 05:51 09/06/22 05:51 Subjective - Subjective Patient Reports: Resting Comfortably Nursing Reports: Other (Sleeps most of the day. Has up-and-down participation with PT. Has cough that is too weak to expectorate, per her RN.) Objective Vital Signs: Vital Signs - 24 hr 08/28/22 08/28/22 08/28/22 18:33 21:00 21:11 Temperature 36.8 C Heart Rate Heart Rate [ 107 H Brachial] Heart Rate [ Monitoring electrodes] Respiratory 24 Rate Blood Pressure 128/69 Blood Pressure 155/74 H [Right Brachial artery] O2 Saturation 92 If not protocol 1 1 : Oxygen Flow, liters/minute 08/29/22 08/29/22 08/29/22 00:13 05:46 06:00 Temperature 36.5 C 36.6 C Heart Rate 76 Heart Rate [ Brachial] Heart Rate [ 75 75 Monitoring electrodes] Respiratory 24 24 24 Rate Blood Pressure Blood Pressure 135/52 H 145/70 H [Right Brachial artery] O2 Saturation 95 97 If not protocol 1 2 2 : Oxygen Flow, liters/minute 08/29/22 08/29/22 08/29/22 08:40 09:30 09:51 Temperature 36.4 C L Heart Rate Heart Rate [ 85 Brachial] Heart Rate [ Monitoring electrodes] Respiratory 22 Rate Blood Pressure 134/70 H Blood Pressure 134/70 H [Right Brachial artery] O2 Saturation 95 If not protocol 2 2 : Oxygen Flow, liters/minute 08/29/22 08/29/22 08/29/22 10:53 11:20 14:58 Temperature Heart Rate 61 71 Heart Rate [ 63 Brachial] Heart Rate [ Monitoring electrodes] Respiratory 16 20 20 Rate Blood Pressure Blood Pressure 135/61 H [Right Brachial artery] O2 Saturation 93 If not protocol 2 : Oxygen Flow, liters/minute 08/29/22 16:28 Temperature 36.6 C Heart Rate Heart Rate [ 84 Brachial] Heart Rate [ Monitoring electrodes] Respiratory 24 Rate Blood Pressure Blood Pressure 114/55 L [Right Brachial artery] O2 Saturation 92 If not protocol 2 : Oxygen Flow, liters/minute Oxygen O2 Source Nasal cannula I&O (Last 24 Hrs): Intake and Output Totals x24h 08/27/22 08/28/22 08/29/22 23:59 23:59 23:59 Intake Total 1230 890 600 Output Total 0387 108 139 Balance -695 -85 -300 General: Alert, Oriented x3, Other (Lethargic. Disheveled) HEENT: Mucous membr. moist/pink, Other (wearing O2 via n.c.) Neck: Supple Neuro: Alert, Non Focal Cardiovascular: No murmurs Respiratory: Other (Poor air movement, no rales or wheezing) Abdomen: Soft, No tenderness Extremities: No clubbing, No edema - Results Results: Laboratory Results WBC 23.7 x10^3/uL (4.8-10.8) H 08/29/22 06:05 RBC 4.00 10^6/uL (4.20-5.40) L 08/29/22 06:05 Hgb 10.9 g/dL (12.0-16.0) L 08/29/22 06:05 Hct 36.7 % (37.0-47.0) L 08/29/22 06:05 MCV 91.8 fL (81.0-99.0) 08/29/22 06:05 MCH 27.3 pg (27.0-31.0) 08/29/22 06:05 MCHC 29.7 g/dL (32.0-36.0) L 08/29/22 06:05 RDW 14.3 % (12.0-15.0) 08/29/22 06:05 Plt Count 340 10^3/uL (130-450) 08/29/22 06:05 MPV 9.8 fL (7.9-10.8) 08/29/22 06:05 Neut # (Auto) Not Reportable 08/29/22 06:05 Lymph # (Auto) Not Reportable 08/29/22 06:05 Mineral # (Auto) Not Reportable 08/29/22 06:05 Eos # (Auto) Not Reportable 08/29/22 06:05 Baso # (Auto) Not Reportable 08/29/22 06:05 Absolute Nucleated RBC Not Reportable 08/29/22 06:05 Total Counted 100 08/29/22 06:05 Band Neuts % (Manual) 0 % (0-10) 08/29/22 06:05 Reactive Lymphs % (Man) 2 % 08/21/22 07:41 Abnorm Lymph % (Manual) 0 % 08/29/22 06:05 Metamyelocytes % 1 % (-0) H 08/26/22 08:09 Nucleated RBC % Not Reportable 08/29/22 06:05 Neutrophils # (Manual) 20.4 10^3/uL (1.5-6.6) H 08/29/22 06:05 Lymphocytes # (Manual) 1.9 10^3/uL (1.5-3.5) 08/29/22 06:05 Monocytes # (Manual) 1.2 10^3/uL (0.0-1.0) H 08/29/22 06:05 Eosinophils # (Manual) 0.2 10^3/uL (0-0.7) 08/29/22 06:05 Basophils # (Manual) 0.0 10^3/uL (0-0.1) 08/29/22 06:05 Differential Comment MANUAL DIFFERENTIAL 08/29/22 06:05 Manual Slide Review Indicated 08/28/22 07:45 WBC Morphology NORMAL APPEARANCE (NORMAL) 08/29/22 06:05 Platelet Estimate NORMAL (130-450,000) (NORMAL) 08/29/22 06:05 Platelet Morphology NORMAL APPEARANCE (NORMAL) 08/29/22 06:05 RBC Morph Micro Appear 1+ ANISOCYTOSIS (NORMAL) 08/29/22 06:05 Bld Gas Analysis Time 0933 08/29/22 09:25 Sample Site RIGHT RADIAL 08/29/22 09:25 ABG pH 7.40 (7.35-7.45) 08/29/22 09:25 ABG pCO2 64 mmHg (34-45) H* 08/29/22 09:25 ABG pO2 67 mmHg (80-100) L 08/29/22 09:25 ABG HCO3 39.0 mmol/L (22.0-26.0) H 08/29/22 09:25 ABG Total CO2 41.0 MMOL/L (21.0-29.0) H* 08/29/22 09:25 ABG O2 Saturation 94 % (94-98) 08/29/22 09:25 ABG Base Excess 11.8 mmol/L (-2.0-3.0) H 08/29/22 09:25 Migue Test POSITIVE 08/29/22 09:25 VBG pH 7.347 (7.31-7.41) 08/29/22 06:05 Ionized Calcium 1.11 mmol/L (1.15-1.33) L 08/29/22 06:05 O2 Delivery Device OXYMASK 08/29/22 09:25 O2 Liters/Min 2.00 LPM 08/29/22 09:25 FiO2 44.00 08/17/22 05:40 Sodium 140 mmol/L (135-145) 08/29/22 06:05 Potassium 3.4 mmol/L (3.5-5.0) L 08/29/22 06:05 Chloride 98 mmol/L (101-111) L 08/29/22 06:05 Carbon Dioxide 36 mmol/L (21-32) H 08/29/22 06:05 Anion Gap 6.0 (6-13) 08/29/22 06:05 BUN 10 mg/dL (6-20) 08/29/22 06:05 Creatinine 0.6 mg/dL (0.4-1.0) 08/29/22 06:05 Estimated GFR (MDRD) 96 (>89) 08/29/22 06:05 Glucose 107 mg/dL (70-100) H 08/29/22 06:05 Calcium 7.8 mg/dL (8.5-10.3) L 08/29/22 06:05 Ionized Calcium YES 08/29/22 06:05 Phosphorus 2.6 mg/dL (2.5-4.6) 08/22/22 05:16 Magnesium 2.3 mg/dL (1.7-2.8) 08/22/22 18:26 Total Bilirubin 0.5 mg/dL (0.2-1.0) 08/25/22 07:15 AST 22 IU/L (10-42) 08/25/22 07:15 ALT 39 IU/L (10-60) 08/25/22 07:15 Alkaline Phosphatase 82 IU/L (42-121) 08/25/22 07:15 Total Creatine Kinase 16 IU/L (22-269) L 08/13/22 16:15 Troponin I High Sens 9.8 ng/L (2.3-14.8) 08/19/22 17:49 B-Natriuretic Peptide 246 pg/mL (5-100) H 08/18/22 08:05 Total Protein 5.5 g/dL (6.7-8.2) L 08/25/22 07:15 Albumin 2.1 g/dL (3.2-5.5) L 08/25/22 07:15 Globulin 3.4 g/dL (2.1-4.2) 08/25/22 07:15 Albumin/Globulin Ratio 0.6 (1.0-2.2) L 08/25/22 07:15 Triglycerides 68 mg/dL (-149) 08/14/22 05:04 Cholesterol 60 mg/dL (-199) 08/14/22 05:04 LDL Cholesterol, Calc 28 mg/dL (-129) 08/14/22 05:04 VLDL Cholesterol 14 mg/dL 08/14/22 05:04 HDL Cholesterol 18 mg/dL (60-) L 08/14/22 05:04 LDL/HDL Ratio 1.6 (<4.4) 08/14/22 05:04 Cholesterol/HDL Ratio 3.3 (<4.4) 08/14/22 05:04 Urine Color YELLOW 08/29/22 03:30 Urine Clarity CLEAR (CLEAR) 08/29/22 03:30 Urine pH 6.5 PH (5.0-7.5) 08/29/22 03:30 Ur Specific [place] 1.010 (1.002-1.030) 08/29/22 03:30 Urine Protein 30 mg/dL (NEGATIVE) H 08/29/22 03:30 Urine Glucose (UA) NEGATIVE mg/dL (NEGATIVE) 08/29/22 03:30 Urine Ketones NEGATIVE mg/dL (NEGATIVE) 08/29/22 03:30 Urine Occult Blood NEGATIVE (NEGATIVE) 08/29/22 03:30 Urine Nitrite NEGATIVE (NEGATIVE) 08/29/22 03:30 Urine Bilirubin NEGATIVE (NEGATIVE) 08/29/22 03:30 Urine Urobilinogen 0.2 (NORMAL) E.U./dL (NORMAL) 08/29/22 03:30 Ur Leukocyte Esterase NEGATIVE (NEGATIVE) 08/29/22 03:30 Urine RBC 0-5 /HPF (0-5) 08/29/22 03:30 Urine WBC 0-3 /HPF (0-5) 08/29/22 03:30 Urine WBC Clumps Cancelled 08/19/22 10:40 Ur Epithelial Cells Cancelled 08/19/22 10:40 Ur Squamous Epith Cells NONE SEEN (<= Few) 08/29/22 03:30 Urine Crystals Cancelled 08/19/22 10:40 Amorphous Sediment Cancelled 08/19/22 10:40 Urine Bacteria Rare /HPF (None Seen) 08/29/22 03:30 Urine Casts Cancelled 08/19/22 10:40 Urine Starch Cancelled 08/19/22 10:40 Urine Mucus Cancelled 08/19/22 10:40 Urine Trichomonas Cancelled 08/19/22 10:40 Urine Yeast Cancelled 08/19/22 10:40 Urine Sperm Cancelled 08/19/22 10:40 Ur Oval Fat Bodies Cancelled 08/19/22 10:40 Ur Microscopic Review NOT INDICATED 08/13/22 17:52 Urine Culture Comments NOT INDICATED 08/29/22 03:30 Nasal Screen MRSA (PCR) NEGATIVE (NEGATIVE) 08/19/22 16:35 Last Dose Date 08/20/22 08/20/22 14:16 Last Dose Time 1312 08/20/22 14:16 Vancomycin Peak 36.3 ug/mL (20.0-40.0) 08/20/22 14:16 Vancomycin Trough 14.6 ug/mL (10.0-20.0) 08/20/22 09:32 SARS-CoV-2 (PCR) NOT DETECTED 08/18/22 08:43 - Procedures Procedures: Procedures EXCISION OF CECUM, ENDO (03/24/19) EXCISION OF SIGMOID COLON, ENDO (03/24/19) EXCISION OF TRANSVERSE COLON, ENDO (03/24/19)
[2022-08-29] MEDS: MONTELUKAST 10 MG TABLET PO SCH (22:40)
[2022-08-29] MEDS: MIRTAZAPINE 15 MG TABLET PO SCH (22:40)
[2022-08-30] MEDS: SODIUM CHLORIDE FLUSH 0.9% 10 ML SYRINGE IVP SCH ×3 (01:21→15:46)
[2022-08-30 05:37] LABS: BASOPHILS # (AUTO) 0.1 10^3/uL (0.0-0.1); BASOPHILS % (AUTO) 0.3 %; EOSINOPHILS # (AUTO) 0.2 10^3/uL (0.0-0.7); EOSINOPHILS % (AUTO) 1.3 %; HCT - HEMATOCRIT 36.1 % (37.0-47.0); HGB - HEMOGLOBIN 10.3 g/dL (12.0-16.0); LYMPHOCYTES # (AUTO) 1.5 10^3/uL (1.5-3.5); LYMPHOCYTES % (AUTO) 8.1 %; MEAN CORPUSCULAR HEMOGLOBIN 27.3 pg (27.0-31.0); MEAN CORPUSCULAR HGB CONC 28.5 g/dL (32.0-36.0); MEAN CORPUSCULAR VOLUME 95.8 fL (81.0-99.0); MEAN PLATELET VOLUME 9.8 fL (7.9-10.8); NEUTROPHILS % (AUTO) 84.6 %; PLT - PLATELET COUNT 304 10^3/uL (130-450); RED BLOOD COUNT 3.77 10^6/uL (4.20-5.40); RED CELL DISTRIBUTION WIDTH 14.5 % (12.0-15.0); WHITE BLOOD COUNT 18.9 x10^3/uL (4.8-10.8)
[2022-08-30 05:49] LABS: BUN - BLOOD UREA NITROGEN 9 mg/dL (6-20); CALCIUM 7.8 mg/dL (8.5-10.3); CARBON DIOXIDE - CO2 36 mmol/L (21-32); CHLORIDE 101 mmol/L (101-111); CREATININE 0.5 mg/dL (0.4-1.0); GFR - MDRD 118 (>89); GLUCOSE 101 mg/dL (70-100); IONIZED CALCIUM IF INDICATED YES; POTASSIUM 3.8 mmol/L (3.5-5.0); SODIUM 141 mmol/L (135-145)
[2022-08-30 05:58] LABS: CALCIUM, IONIZED 1.02 mmol/L (1.15-1.33); VBG PH 7.453 (7.31-7.41)
[2022-08-30] MEDS: LEVALBUTEROL 1.25 MG/3 ML NEB INH SCH ×4 (07:00→19:00)
[2022-08-30] MEDS: OMEGA-3 ACID ETHYL ESTERS 1 GM CAPSULE PO SCH ×2 (08:35→17:46)
[2022-08-30] MEDS: ASPIRIN CHEW 81 MG TABLET PO SCH (08:35)
[2022-08-30] MEDS: ENOXAPARIN 40 MG/0.4 ML SYRINGE SUBQ SCH (08:35)
[2022-08-30] MEDS: cefTRIAXone 2 GM in SODIUM CHLORIDE 0.9% MINIBAG 100 ML IV SCH (08:35)
[2022-08-30] MEDS: MULTIVITAMIN W/MINERALS TABLET PO SCH (08:35)
[2022-08-30] MEDS: TAMSULOSIN 0.4 MG CAPSULE PO SCH (08:35)
[2022-08-30] MEDS: guaiFENesin 600 MG TABLET PO SCH ×2 (08:36→20:40)
[2022-08-30] MEDS: METOPROLOL TARTRATE 25 MG TABLET PO SCH ×2 (08:36→20:40)
[2022-08-30] MEDS: SACCHAROMYCES BOULARDII 250 MG CAPSULE PO SCH ×2 (08:36→17:46)
[2022-08-30] MEDS: FAMOTIDINE 20 MG TABLET PO SCH ×2 (08:36→20:40)
[2022-08-30] MEDS: GABAPENTIN 100 MG CAPSULE PO SCH ×2 (13:37→20:40)
[2022-08-30] MEDS: VANCOMYCIN INJ 1 GM in SODIUM CHLORIDE 0.9% 250 ML IV SCH (13:37)
[2022-08-30] MEDS: MIRTAZAPINE 15 MG TABLET PO SCH (20:40)
[2022-08-30] MEDS: MONTELUKAST 10 MG TABLET PO SCH (20:40)
[2022-08-31] MEDS: SODIUM CHLORIDE FLUSH 0.9% 10 ML SYRINGE IVP SCH ×4 (00:46→21:16)
[2022-08-31] MEDS: LEVALBUTEROL 1.25 MG/3 ML NEB INH SCH ×4 (06:52→22:13)
[2022-08-31 08:03] LABS: BASOPHILS % (AUTO) 0.3 %; EOSINOPHILS # (AUTO) 0.1 10^3/uL (0.0-0.7); EOSINOPHILS % (AUTO) 0.8 %; HCT - HEMATOCRIT 36.6 % (37.0-47.0); HGB - HEMOGLOBIN 10.6 g/dL (12.0-16.0); LYMPHOCYTES # (AUTO) 1.2 10^3/uL (1.5-3.5); LYMPHOCYTES % (AUTO) 7.6 %; MEAN CORPUSCULAR HEMOGLOBIN 27.5 pg (27.0-31.0); MEAN CORPUSCULAR VOLUME 95.1 fL (81.0-99.0); MONOCYTES # (AUTO) 0.5 10^3/uL (0.0-1.0); MONOCYTES % (AUTO) 3.5 %; NEUTROPHILS # (AUTO) 13.2 10^3/uL (1.5-6.6); NEUTROPHILS % (AUTO) 87.3 %; PLT - PLATELET COUNT 292 10^3/uL (130-450); RED BLOOD COUNT 3.85 10^6/uL (4.20-5.40); RED CELL DISTRIBUTION WIDTH 14.2 % (12.0-15.0); WHITE BLOOD COUNT 15.2 x10^3/uL (4.8-10.8)
[2022-08-31 08:20] LABS: CALCIUM 7.8 mg/dL (8.5-10.3); CREATININE 0.4 mg/dL (0.4-1.0); POTASSIUM 3.9 mmol/L (3.5-5.0)
[2022-08-31] MEDS: guaiFENesin 600 MG TABLET PO SCH ×2 (08:37→21:16)
[2022-08-31] MEDS: ENOXAPARIN 40 MG/0.4 ML SYRINGE SUBQ SCH (08:37)
[2022-08-31] MEDS: ASPIRIN CHEW 81 MG TABLET PO SCH (08:37)
[2022-08-31] MEDS: MULTIVITAMIN W/MINERALS TABLET PO SCH (08:38)
[2022-08-31] MEDS: SACCHAROMYCES BOULARDII 250 MG CAPSULE PO SCH ×2 (08:38→16:06)
[2022-08-31] MEDS: OMEGA-3 ACID ETHYL ESTERS 1 GM CAPSULE PO SCH ×2 (08:38→16:06)
[2022-08-31] MEDS: METOPROLOL TARTRATE 25 MG TABLET PO SCH ×2 (08:39→21:13)
[2022-08-31] MEDS: FAMOTIDINE 20 MG TABLET PO SCH ×2 (08:41→21:16)
[2022-08-31] MEDS: FLUCONAZOLE 200 MG/100 ML 100 ML IV SCH (08:41)
[2022-08-31] MEDS: TAMSULOSIN 0.4 MG CAPSULE PO SCH (08:44)
--- NOTE | 2022-08-31 13:45 | CONSULTATION NOTE ---
Consultation Report: Attempted placement of PICC line x4, all at RUE. Vessel accessed with ease multiple times at 3 different locations. wire threaded with ease, unable to thread catheter each time (14, 18, 18) Stopped with patient c/o pain. Not enough catheter inserted to create midline. Unable to locate vessel at L that has diameter for 4 fr. PICC. Offered to attempt at L side but informed patient I did not visualize vessels adequate in size. Vessels at R UE now with decreased diameter and some ultrasound evidence of infiltration or vessel damage. Flow remains adequate through R basilic v. space via US color flow in all access locations. Discussed options with patient. Decision made to delay/cancel PICC for today. Patient said she might be willing to allow additional attempts tomorrow. Currently infusing IVFs through patent IV at L FA. All insertion sites dressed with 4x4 and tape with hemostasis.
[2022-08-31] MEDS: VANCOMYCIN INJ 1 GM in SODIUM CHLORIDE 0.9% 250 ML IV SCH (14:11)
[2022-08-31] MEDS: GABAPENTIN 100 MG CAPSULE PO SCH ×2 (14:12→21:15)
--- NOTE | 2022-08-31 18:40 | PROVIDER PROGRESS NOTE ---
Assessment/Plan - Problem List (1) Generalized weakness Assessment/Plan: Assessment/Plan: The brain MRI showed only diffuse changes of atrophy, no evidence of old stroke or recent stroke. The patient does carry a diagnosis of polio, which may have given L>R leg weakness. On 08/17 her O2 sat was 83% at rest, while on n.c.so she was put boo oxymask. I ordered for patient to be put on suppl O2 via oxy mask whenever she is asleep or napping. She has been too tired to participate with rehab for several days On 08/18 I updated the visitors in the room, regarding her new pneumonia and her overall weakness. Renate confirmed that the pt has a very poor appetite and mostly eats cottage cheese and peaches, she also likes well cooked asparagus and chocolate pudding. Also that day Renate requested that I get a Neurology consult. On 08/18, I called and spoke to the Neurologist on-call, and reviewed the entire case, including the 2 falls at home. This Neurologist said that I had done due diligence for this patient, and had no new recommendations. Today 08/21, I updated her son Sin from [place], her biologic granddaughter Yvonne, the family friend Yolis, and Hortencia by phone, all at bedside in her room. Remain on lower gabapentin dose (300 mg tid was already decreased to 100 mg TID), and today I will decrease that to BID at 1300 & 2000 PT and OT to keep working with her, since she is deconditioned and felt too weak to do PT, the last 3 days. Our PT was recommending SNF for rehab. On 08/19, after being transferred to the ICU, her RN informed me that a daughter named Susan called from the [facility]. Apparently Renate had called Susan. The pt's RN Jesse received permission from Tiffany to talk to Susan. Susan said that Renate is not her daughter and not even an adopted daughter but that the p atient just lives with Renate. The patient has 7 children who are scattered all over the [place]. I then called Renate again and asked whether she is the adopted daughter legally or verbally and Renate said she is "verbally" an adopted daughter. I then corrected Renate and said that legally she is just considered a friend, if there is no legal paperwork for adoption. Renate confirmed that there are many children and the closest is Sin who lives in [facility] and he was to come to visit the patient. On 08/20, at bedside was the "adopted granddaughter" who said she is also the "sister of Renate". When I remarked that Rneate is not a blood relative to Tiffany, then she said she "feels like she is a sister to Renate, because they are so close". I told her that medical legally she is just considered a friend. I did speak to Social Work about these family interactions and ask Social Work to establish if there is the DPOA and who are all the people that we are allowed to speak with, about the pt. On 08/21, I updated her son Sin from [place], her biologic granddaughter Yvonne, an d the family friend Yolis, and daughter Hortencia was on phone, that medical legally if there is no one person designated as a DPOA, then all the current children (5 of 7 are alive), will need to agree on what we do, if the patient cannot make her own decisions (like she could not when she was obtunded and in junctional rhythm and was transferred to the ICU). Plan: She is now not obtunded and can make her own decisions but states she will eat but does not. She works with PT and OT in a rollercoaster pattern. Thus a Palliative care consult will be requested to assist her in making decisions about her care, since she only intermittently eats and drinks, and cooperates minimally with PT and OT, and mostly sleeps all day (2) Acute and chronic respiratory failure with hypoxia Assessment/Plan: Assessment/Plan: Patient was more hypoxic several days ago and work-up showed that she has a new pneumonia found on CXR on her 3rd day here, and antibx were started after cx obtained. She was in new atrial flutter with RVR then too. All labs were reviewed. Troponins went from 7 to 20. 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 We obtained blood cx and sputum cx We had her on antibx to cover a Healthcare-associated pneumonia: using IV vancomycin, and IV Cefepime. August 22, 2022-sputum culture grew E. coli so we DC'd vancomycin and kept her cefepime and added Flagyl for possibility of aspiration pneumonia August 23, 2022-sputum culture then grew MRSA so we added back IV vancomycin August 24, 2022 per pharmacy recommendations switching from cefepime to Rocephin which sensitivities of the culture show that is appropriate for the E. coli and will continue with IV vancomycin continue with IV Flagyl which was added for possibility of aspiration pneumonia also August 25, 2022-patient seemed more alert & responsive and we continued that ant ibiotic combination regimen for at least a total of 7 days, since her sputum grew E. coli and MRSA August 28, 2022-patient was having increasing leukocytosis and is up to 33,000. Chest x-ray showed a suspected cavitary lesion in the right upper lung zone; differential included necrotizing pneumonia/aspiration pneumonia versus mass. The CT scan was done 08/28 and was read as having a cavitary lesion enlarging during her time here, which could be PNA from fungus vs bacteria Plan: Continue with iv Vanco, iv Fluconazole, and iv Flagyl Cont probiotic (4) Fall at home Impression: Patient has a very bruised and mildly swollen left upper eyelid. That was the fall from several days ago. Following that she rolled out of bed 2 days later, landing on her left side she thinks. She complained of L sided pain s/p GLF and neck pain s/p GLF, in the ED. H/o recent L hip fracture s/p ORIF Her CSpine CT showed : DJD C1-C2, C5-C6, C6-C7 Her orthostatic vital signs reveal volume depletion, when checked the past several days. She received iv fluids for 2 days I restart Gabapentin at a lower dose of 100 mg TID not 300 mg TID She received 2 days of IV fluids, approximately 2 L positive in fluid balance. Chest x-ray today 08/17/2022 shows mild blunting of her costophrenic angles Plan: Since the patient has had recent orthostasis, I did not restart her Lasix, and I doubt she needs it, now that she is barely eating or drinking Her IV fluids were stopped when BNP was noted to be elevated I am resuming iv fluids today due to her poor po intake, D5W at 83.33 cc/hr. Remain on lower gabapentin dose (300 mg tid was decreased to 100 mg TID), and today I will decrease that to BID at 1300 & 2000 PT and OT rehab needs to continue (5) Severe protein calorie malnutrition The patient's BMI is only 17. She is cachectic, has temporal wasting and sunken eyes and diffuse muscle wasting and loss of subcutaneous fat. She screened for excessive weight loss, done by our Video Manager: Has had nutritional intake of less than 50% for 2 weeks or more, and has lost 12% of her weight in 6 months. Her labs showed a LDL of 48 and an HDL of 18, and she was on a statin at home. I ordered a more liberalized diet with Video Manager to take her meal choices I stopped her statin and will plan discharge off the statin. I started her on omega-3 tablet daily to increase her HDL On 08/18 I spoke to the daughter who was visiting in her room, who confirmed that her mother has a very poor appetite and mostly eats cottage cheese and peaches, she also likes well cooked asparagus and chocolate pudding. On 08/21, when I asked what protein she eats, the family at bedside told me that she also likes peanut butter and hard-boiled eggs. Plan: I have added Boost to be given with all meals Cont Remeron to stimulate appetite. (6) UTI Assessment/Plan: For the last several days she has had urinary retention and needed straight cath. On 08/19 a Paz catheter was inserted due to high volume on bladder scan. During that insertion she had white purulent urine drained. A urinalysis was sent off and this had many WBCs and many bacteria. That urine culture is growing nothing (probably because she had a partially treated UTI, from already being on cefepime for her pneumonia) All labs were reviewed. Her white count lucia, I suspect the persistently elev ated WBC was initially from this newly found UTI Plan: I have kept her on her iv antibx which were started for the HCAP (7) Acute urinary retention Assessment/Plan: For the last several nights the patient has had high residual on bladder scanning, showing urinary retention of 400-600. Straight caths were needed. I ordered a Paz insertion because of her severe shortness of breath even at rest, plus this urinary retention. The patient is on a bladder medication which has been continued here I suspect this acute UTI is what caused the urinary retention Plan: Cont Paz for now (8) COPD with hypoxia Assessment/Plan: This new pneumonia had caused her to wheeze. She now has a COPD exacerbation. She still has wet phlegm in upper airway, and she only clears her throat, she seems to be too weak to cough it up. I started Montelukast q pm Because of very poor air movement on exam, I added Solu-Medrol 40 mg tid. On 08/25, patient's Solu-Medrol was DC'd Plan: Cont Xopenex nebulized bronchodilators, Montelukast Cont Mucinex and Solumedrol I also ordered chest PT and flutter valve TID, for expectoration, if she can cooperate (9) Paroxysmal Atrial flutter Assessment/Plan: The patient went into new A-fib spontaneously converted back to sinus rhythm, then went into atrial flutter with RVR on 08/17, when she was at her worst resp distress. After her morning Cardizem dose, she converted to NSR. Then she had Paroxysms of atrial flutter with 2-1 and 3-1 block for several days. Troponins went from 7 to 20, likely rate-related demand ischemia. Her BNP was mildly elevated 208>> 246 Earlier, she was already having short runs of PSVT, at rates of 115. She had an Echocardiogram done her 08/15, which showed normal LV size and function and normal RV size and function When heart rate was 100-140 so Cardizem CD was resumed but not at 240 mg but at 120 mg. I put a hold on her Cardizem CD, because of the junctional heather rhythm. Plan: This patient has tachybradycardia syndrome. 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 She was transferred to the ICU. External pacer patches were put on as a precaution and the pacemaker device was moved into her ICU room, but she did not need to be externally paced. I put her on an Aminophylline continuous IV drip, to give her the desired side effect of a higher heart rate, for 24 hours Her labs were checked when she was transferred to the ICU. Her potassium was 5.5 which may have been the cause of the junctional bradycardia. The troponins were checked and EKG was done and these did not reveal an acute AZ. Her Echo had been done earlier this admission which showed normal chamber sizes and normal LV and RV contractility. I stopped the Cardizem CD temporarily. About 12 hours after the aminophylline was stopped, her rhythm was normal sinus at 70-80. (11) Sinus pause Several days ago, she had a 4.8-second pause, came out of A-fib with that and went into sinus rhythm I decreased the metoprolol from 37.5 twice daily down to 12.5 twice daily I suspect this patient has tachy-bradycardia syndrome. Plan: If needed, I would discuss with her if she has any desire to be considered for transfer for placing a pacemaker and EP/cardiology consultation - Current Meds Current Meds: Current Medications Generic Name Dose Route Start Last Admin Trade Name Sugey PRN Reason Stop Dose Admin Aspirin 81 mg 08/14/22 09:00 08/31/22 08:37 Aspirin Chew 81 Mg Tablet PO 81 mg DAILY HENOK Administration Enoxaparin Sodium 40 mg 08/14/22 09:00 08/31/22 08:37 Enoxaparin 40 Mg/0.4 Ml Syringe SUBQ 40 mg DAILY HENOK Administration Famotidine 20 mg 08/25/22 21:00 08/31/22 08:41 Famotidine 20 Mg Tablet PO 20 mg BID HENOK Administration Gabapentin 100 mg 08/21/22 13:00 08/31/22 14:12 Gabapentin 100 Mg Capsule PO 100 mg 1300,2000 HENOK Administration Guaifenesin 600 mg 08/17/22 10:00 08/31/22 08:37 Guaifenesin 600 Mg Tablet PO 600 mg BID HENOK Administration Vancomycin HCl 1 gm/ Sodium 250 mls @ 167 mls/hr 08/25/22 13:00 08/31/22 16:06 Chloride IV Infused Q24H HENOK Infusion Fluconazole 100 mls @ 100 mls/hr 08/31/22 09:00 08/31/22 11:52 Diflucan 200 Mg/100 Ml IV Infused DAILY HENOK Infusion Levalbuterol HCl 1.25 mg 08/17/22 14:59 08/31/22 15:13 Levalbuterol 1.25 Mg/3 Ml Neb INH 1.25 mg RTQID HENOK Administration Metoprolol Tartrate 12.5 mg 08/30/22 21:00 08/31/22 08:39 Metoprolol Tartrate 25 Mg Tablet PO 12.5 mg BID HENOK Administration Mirtazapine 15 mg 08/21/22 21:00 08/30/22 20:40 Mirtazapine 15 Mg Tablet PO 15 mg QPM HENOK Administration Montelukast Sodium 10 mg 08/19/22 21:00 08/30/22 20:40 Montelukast 10 Mg Tablet PO 10 mg QPM HENOK Administration Morphine Sulfate 2 mg 08/19/22 09:12 08/22/22 12:15 Morphine 2 Mg/Ml Carpuject IVP 2 mg Q4HR PRN Administration Dyspnea Multivitamins/Minerals 1 tab 08/15/22 17:00 08/31/22 08:38 Multivitamin W/Minerals Tablet PO 1 tab DAILYWM HENOK Administration [id number] Ethyl Esters 1 gm 08/20/22 17:00 08/31/22 16:06 Lester-3 Acid Ethyl Esters 1 Gm Capsule PO 1 gm BIDWM HENOK Administration Saccharomyces Boulardii 250 mg 08/17/22 17:00 08/31/22 16:06 Saccharomyces Boulardii 250 Mg Capsule PO 250 mg BIDWM HENOK Administration Sodium Chloride 10 ml 08/13/22 19:43 08/27/22 03:50 Sodium Chloride Flush 0.9% 10 Ml Syringe IVP 10 ml PRN PRN Administration NEEDED PER PROVIDER ORDERS Sodium Chloride 10 ml 08/14/22 01:00 08/31/22 14:12 Sodium Chloride Flush 0.9% 10 Ml Syringe IVP 10 ml 0100,0900,1700 HENOK Administration Tamsulosin HCl 0.4 mg 08/15/22 09:00 08/31/22 08:44 Tamsulosin 0.4 Mg Capsule PO 0.4 mg DAILY HENOK Administration - Lab Result Fish Bone Diagrams: 09/06/22 05:51 09/06/22 05:51 - Additional Planning My Orders: My Active Orders 08/30/22 21:00 Metoprolol Tartrate [Lopressor] 12.5 mg PO BID 08/31/22 Palliative Care Consult [CONS] Routine 08/31/22 09:00 Fluconazole 200 mg/100 ml [Diflucan 200 mg/100 ml] 100 ml IV DAILY 08/31/22 11:57 PICC Line Insert [RC] .ONCE Subjective - Subjective Patient Reports: No Complaints Nursing Reports: Other (Still mostly sleeping. Participates with PT ad OT one day, the next she is too tired to work with them, and refuses to get OOB for meals) Objective Vital Signs: Vital Signs - 24 hr 08/30/22 08/30/22 08/30/22 19:00 20:16 20:40 Temperature 36.5 C Heart Rate 76 Heart Rate [ 87 Brachial] Respiratory 16 18 Rate Blood Pressure 129/64 Blood Pressure 129/54 L [Right Brachial artery] O2 Saturation 93 If not protocol 2 2 : Oxygen Flow, liters/minute 08/30/22 08/30/22 08/31/22 23:38 23:46 05:00 Temperature 36.4 C L 36.5 C Heart Rate Heart Rate [ 73 88 Brachial] Respiratory 18 16 Rate Blood Pressure Blood Pressure 155/68 H 130/58 L 150/70 H [Right Brachial artery] O2 Saturation 94 93 If not protocol 2 2 : Oxygen Flow, liters/minute 08/31/22 08/31/22 08/31/22 06:51 06:54 08:33 Temperature 36.8 C Heart Rate 78 Heart Rate [ 89 Brachial] Respiratory 16 Rate Blood Pressure Blood Pressure 146/71 H 123/63 [Right Brachial artery] O2 Saturation 94 If not protocol 2 2 : Oxygen Flow, liters/minute 08/31/22 08/31/22 08/31/22 08:39 11:31 11:45 Temperature 36.3 C L Heart Rate 67 Heart Rate [ 73 Brachial] Respiratory 19 20 Rate Blood Pressure 123/63 Blood Pressure 133/59 H [Right Brachial artery] O2 Saturation 100 If not protocol 2 2 : Oxygen Flow, liters/minute 08/31/22 08/31/22 15:14 16:05 Temperature 36.5 C Heart Rate 85 Heart Rate [ 90 Brachial] Respiratory 19 15 Rate Blood Pressure Blood Pressure 127/55 L [Right Brachial artery] O2 Saturation 92 If not protocol 2 2 : Oxygen Flow, liters/minute Oxygen O2 Source Nasal cannula I&O (Last 24 Hrs): Intake and Output Totals x24h 08/29/22 08/30/22 08/31/22 23:59 23:59 23:59 Intake Total 970 550 350 Output Total 1075 725 500 Balance -105 -175 -150 General: Alert, Oriented x3, Other (Lethargic, disheveled and cachexic) HEENT: Atraumatic, Mucous membr. moist/pink Neck: Supple, No JVD Neuro: Alert, Non Focal, Other (generalized weakness) Cardiovascular: No murmurs Respiratory: No respiratory distress (on suppl O2, and has a very weak cough), Other (Poor air mvm) Abdomen: Soft Genitourinary: Other (Paz in place) Extremities: No clubbing, No edema - Results Results: Laboratory Results WBC 15.2 x10^3/uL (4.8-10.8) H 08/31/22 07:56 RBC 3.85 10^6/uL (4.20-5.40) L 08/31/22 07:56 Hgb 10.6 g/dL (12.0-16.0) L 08/31/22 07:56 Hct 36.6 % (37.0-47.0) L 08/31/22 07:56 MCV 95.1 fL (81.0-99.0) 08/31/22 07:56 MCH 27.5 pg (27.0-31.0) 08/31/22 07:56 MCHC 29.0 g/dL (32.0-36.0) L 08/31/22 07:56 RDW 14.2 % (12.0-15.0) 08/31/22 07:56 Plt Count 292 10^3/uL (130-450) 08/31/22 07:56 MPV 10.0 fL (7.9-10.8) 08/31/22 07:56 Neut # (Auto) 13.2 10^3/uL (1.5-6.6) H 08/31/22 07:56 Lymph # (Auto) 1.2 10^3/uL (1.5-3.5) L 08/31/22 07:56 [place]on # (Auto) 0.5 10^3/uL (0.0-1.0) 08/31/22 07:56 Eos # (Auto) 0.1 10^3/uL (0.0-0.7) 08/31/22 07:56 Baso # (Auto) 0.0 10^3/uL (0.0-0.1) 08/31/22 07:56 Absolute Nucleated RBC 0.00 x10^3/uL 08/31/22 07:56 Total Counted 100 08/29/22 06:05 Band Neuts % (Manual) 0 % (0-10) 08/29/22 06:05 Reactive Lymphs % (Man) 2 % 08/21/22 07:41 Abnorm Lymph % (Manual) 0 % 08/29/22 06:05 Metamyelocytes % 1 % (-0) H 08/26/22 08:09 Nucleated RBC % 0.0 /100WBC 08/31/22 07:56 Neutrophils # (Manual) 20.4 10^3/uL (1.5-6.6) H 08/29/22 06:05 Lymphocytes # (Manual) 1.9 10^3/uL (1.5-3.5) 08/29/22 06:05 Monocytes # (Manual) 1.2 10^3/uL (0.0-1.0) H 08/29/22 06:05 Eosinophils # (Manual) 0.2 10^3/uL (0-0.7) 08/29/22 06:05 Basophils # (Manual) 0.0 10^3/uL (0-0.1) 08/29/22 06:05 Differential Comment MANUAL DIFFERENTIAL 08/29/22 06:05 Manual Slide Review Indicated 08/28/22 07:45 WBC Morphology NORMAL APPEARANCE (NORMAL) 08/29/22 06:05 Platelet Estimate NORMAL (130-450,000) (NORMAL) 08/29/22 06:05 Platelet Morphology NORMAL APPEARANCE (NORMAL) 08/29/22 06:05 RBC Morph Micro Appear 1+ ANISOCYTOSIS (NORMAL) 08/29/22 06:05 Bld Gas Analysis Time 93208/29/22 09:25 Sample Site RIGHT RADIAL 08/29/22 09:25 ABG pH 7.40 (7.35-7.45) 08/29/22 09:25 ABG pCO2 64 mmHg (34-45) H* 08/29/22 09:25 ABG pO2 67 mmHg (80-100) L 08/29/22 09:25 ABG HCO3 39.0 mmol/L (22.0-26.0) H 08/29/22 09:25 ABG Total CO2 41.0 MMOL/L (21.0-29.0) H* 08/29/22 09:25 ABG O2 Saturation 94 % (94-98) 08/29/22 09:25 ABG Base Excess 11.8 mmol/L (-2.0-3.0) H 08/29/22 09:25 Migue Test POSITIVE 08/29/22 09:25 VBG pH 7.453 (7.31-7.41) H 08/30/22 05:15 Ionized Calcium 1.02 mmol/L (1.15-1.33) L 08/30/22 05:15 O2 Delivery Device OXYMASK 08/29/22 09:25 O2 Liters/Min 2.00 LPM 08/29/22 09:25 FiO2 44.00 08/17/22 05:40 Sodium 142 mmol/L (135-145) 08/31/22 07:56 Potassium 3.9 mmol/L (3.5-5.0) 08/31/22 07:56 Chloride 102 mmol/L (101-111) 08/31/22 07:56 Carbon Dioxide 35 mmol/L (21-32) H 08/31/22 07:56 Anion Gap 5.0 (6-13) L 08/31/22 07:56 BUN 9 mg/dL (6-20) 08/31/22 07:56 Creatinine 0.4 mg/dL (0.4-1.0) 08/31/22 07:56 Estimated GFR (MDRD) 153 (>89) 08/31/22 07:56 Glucose 77 mg/dL (70-100) 08/31/22 07:56 Calcium 7.8 mg/dL (8.5-10.3) L 08/31/22 07:56 Ionized Calcium YES 08/30/22 05:15 Phosphorus 2.6 mg/dL (2.5-4.6) 08/22/22 05:16 Magnesium 2.3 mg/dL (1.7-2.8) 08/22/22 18:26 Total Bilirubin 0.5 mg/dL (0.2-1.0) 08/25/22 07:15 AST 22 IU/L (10-42) 08/25/22 07:15 ALT 39 IU/L (10-60) 08/25/22 07:15 Alkaline Phosphatase 82 IU/L (42-121) 08/25/22 07:15 Total Creatine Kinase 16 IU/L (22-269) L 08/13/22 16:15 Troponin I High Sens 9.8 ng/L (2.3-14.8) 08/19/22 17:49 B-Natriuretic Peptide 246 pg/mL (5-100) H 08/18/22 08:05 Total Protein 5.5 g/dL (6.7-8.2) L 08/25/22 07:15 Albumin 2.1 g/dL (3.2-5.5) L 08/25/22 07:15 Globulin 3.4 g/dL (2.1-4.2) 08/25/22 07:15 Albumin/Globulin Ratio 0.6 (1.0-2.2) L 08/25/22 07:15 Triglycerides 68 mg/dL (-149) 08/14/22 05:04 Cholesterol 60 mg/dL (-199) 08/14/22 05:04 LDL Cholesterol, Calc 28 mg/dL (-129) 08/14/22 05:04 VLDL Cholesterol 14 mg/dL 08/14/22 05:04 HDL Cholesterol 18 mg/dL (60-) L 08/14/22 05:04 LDL/HDL Ratio 1.6 (<4.4) 08/14/22 05:04 Cholesterol/HDL Ratio 3.3 (<4.4) 08/14/22 05:04 Urine Color YELLOW 08/29/22 03:30 Urine Clarity CLEAR (CLEAR) 08/29/22 03:30 Urine pH 6.5 PH (5.0-7.5) 08/29/22 03:30 Ur Specific [place] 1.010 (1.002-1.030) 08/29/22 03:30 Urine Protein 30 mg/dL (NEGATIVE) H 08/29/22 03:30 Urine Glucose (UA) NEGATIVE mg/dL (NEGATIVE) 08/29/22 03:30 Urine Ketones NEGATIVE mg/dL (NEGATIVE) 08/29/22 03:30 Urine Occult Blood NEGATIVE (NEGATIVE) 08/29/22 03:30 Urine Nitrite NEGATIVE (NEGATIVE) 08/29/22 03:30 Urine Bilirubin NEGATIVE (NEGATIVE) 08/29/22 03:30 Urine Urobilinogen 0.2 (NORMAL) E.U./dL (NORMAL) 08/29/22 03:30 Ur Leukocyte Esterase NEGATIVE (NEGATIVE) 08/29/22 03:30 Urine RBC 0-5 /HPF (0-5) 08/29/22 03:30 Urine WBC 0-3 /HPF (0-5) 08/29/22 03:30 Urine WBC Clumps Cancelled 08/19/22 10:40 Ur Epithelial Cells Cancelled 08/19/22 10:40 Ur Squamous Epith Cells NONE SEEN (<= Few) 08/29/22 03:30 Urine Crystals Cancelled 08/19/22 10:40 Amorphous Sediment Cancelled 08/19/22 10:40 Urine Bacteria Rare /HPF (None Seen) 08/29/22 03:30 Urine Casts Cancelled 08/19/22 10:40 Urine Starch Cancelled 08/19/22 10:40 Urine Mucus Cancelled 08/19/22 10:40 Urine Trichomonas Cancelled 08/19/22 10:40 Urine Yeast Cancelled 08/19/22 10:40 Urine Sperm Cancelled 08/19/22 10:40 Ur Oval Fat Bodies Cancelled 08/19/22 10:40 Ur Microscopic Review NOT INDICATED 08/13/22 17:52 Urine Culture Comments NOT INDICATED 08/29/22 03:30 Nasal Screen MRSA (PCR) NEGATIVE (NEGATIVE) 08/19/22 16:35 Last Dose Date 08/20/22 08/20/22 14:16 Last Dose Time 13108/20/22 14:16 Vancomycin Peak 36.3 ug/mL (20.0-40.0) 08/20/22 14:16 Vancomycin Trough 14.6 ug/mL (10.0-20.0) 08/20/22 09:32 SARS-CoV-2 (PCR) NOT DETECTED 08/18/22 08:43 - Procedures Procedures: Procedures EXCISION OF CECUM, ENDO (03/24/19) EXCISION OF SIGMOID COLON, ENDO (03/24/19) EXCISION OF TRANSVERSE COLON, ENDO (03/24/19)
[2022-08-31] MEDS: MIRTAZAPINE 15 MG TABLET PO SCH (21:15)
[2022-08-31] MEDS: MONTELUKAST 10 MG TABLET PO SCH (21:16)
[2022-09-01] MEDS: LEVALBUTEROL 1.25 MG/3 ML NEB INH SCH ×4 (07:28→20:40)
--- NOTE | 2022-09-01 10:05 | XRAY Report ---
PROCEDURE: Chest for Line Placement INDICATIONS: PICC placement TECHNIQUE: One view of the chest was acquired. COMPARISON: CT 08/28/2022 FINDINGS: Surgical changes and devices: Right upper extremity approach PICC tip projects over the low SVC. Lungs and pleura: Stable cavitary lesion in the right middle lung zone. Stable bibasilar airspace op acities. Stable small effusions. Mediastinum: Mediastinal contours appear normal. Heart size is normal. Bones and chest wall: No suspicious bony lesions. Overlying soft tissues appear unremarkable. IMPRESSION: PICC tip projects over the low SVC. Stable pulmonary findings. Reviewed by: Jose Angel Orellana on 09/01/2022 10:03 AM PDT Approved by: Jose Angel Orellana on 09/01/2022 10:03 AM PDT Station ID: [id number]
[2022-09-01] MEDS: ASPIRIN CHEW 81 MG TABLET PO SCH (10:14)
[2022-09-01] MEDS: TAMSULOSIN 0.4 MG CAPSULE PO SCH (10:14)
[2022-09-01] MEDS: METOPROLOL TARTRATE 25 MG TABLET PO SCH ×2 (10:17→21:40)
[2022-09-01] MEDS: FAMOTIDINE 20 MG TABLET PO SCH ×2 (10:18→21:40)
[2022-09-01] MEDS: OMEGA-3 ACID ETHYL ESTERS 1 GM CAPSULE PO SCH ×2 (10:18→16:43)
[2022-09-01] MEDS: FLUCONAZOLE 200 MG/100 ML 100 ML IV SCH (10:19)
[2022-09-01] MEDS: MULTIVITAMIN W/MINERALS TABLET PO SCH (10:19)
[2022-09-01] MEDS: guaiFENesin 600 MG TABLET PO SCH ×2 (10:19→21:40)
[2022-09-01] MEDS: ENOXAPARIN 40 MG/0.4 ML SYRINGE SUBQ SCH (10:19)
[2022-09-01] MEDS: SACCHAROMYCES BOULARDII 250 MG CAPSULE PO SCH ×2 (10:19→16:44)
[2022-09-01] MEDS: SODIUM CHLORIDE FLUSH 0.9% 10 ML SYRINGE IVP SCH ×2 (10:20→16:44)
--- NOTE | 2022-09-01 10:20 | ANESTHESIA PROCEDURE NOTE ---
Anesth Central Line Template - Central Line Central Line Preparation: Consent Obtained Central line location: Left Basilic Central line type: PICC Single Lumen Central line catheter tip site resides: Superior vena cava (SVC) Central line aftercare: Secured, Placement confirmed, No pneumothorax, No complications, Bundle checklist complete, Pt tolerated well
--- NOTE | 2022-09-01 10:23 | CONSULTATION NOTE ---
Consultation Report: LUE 4Fr sinle lumen PICC line placed with US guidance under sterile technique. Pt tolerated well. NAC. Line trimmed to 40cm based on L sided approach and height. Initial port CXR showed line approx 4cmm too deep. Line pulled back 4cm, new CXR showed appropriate placement with tip in the SVC. Line secured with steristrips and statlock, sterile dressing applied. Pt tolerated procedure well. NAC
[2022-09-01] MEDS: metroNIDAZOLE 500 MG/100 ML 500 MG/100 ML BAG IV SCH ×2 (12:23→19:38)
[2022-09-01] MEDS: GABAPENTIN 100 MG CAPSULE PO SCH ×2 (12:23→21:44)
[2022-09-01] MEDS: SODIUM CHLORIDE FLUSH 0.9% 10 ML SYRINGE IVP PRN (12:24)
--- NOTE | 2022-09-01 13:26 | PROVIDER PROGRESS NOTE ---
Assessment/Plan - Problem List (1) Generalized weakness Assessment/Plan: Assessment/Plan: The brain MRI showed only diffuse changes of atrophy, no evidence of old stroke or recent stroke. The patient does carry a diagnosis of polio, which may have given L>R leg weakness. On 08/17 her O2 sat was 83% at rest, while on n.c.so she was put boo oxymask. I ordered for patient to be put on suppl O2 via oxy mask whenever she is asleep or napping. She has been too tired to participate with rehab for several days On 08/18 I updated the visitors in the room, regarding her new pneumonia and her overall weakness. Renate confirmed that the pt has a very poor appetite and mostly eats cottage cheese and peaches, she also likes well cooked asparagus and chocolate pudding. Also that day Renate requested that I get a Neurology consult. On 08/18, I called and spoke to the Neurologist on-call, and reviewed the entire case, including the 2 falls at home. This Neurologist said that I had done due diligence for this patient, and had no new recommendations. Today 08/21, I updated her son Sin from [place], her biologic granddaughter Yovnne, the family friend Yolis, and Hortencia by phone, all at bedside in her room. Remain on lower gabapentin dose (300 mg tid was already decreased to 100 mg TID), and today I will decrease that to BID at 1300 & 2000 PT and OT to keep working with her, since she is deconditioned and felt too weak to do PT, the last 3 days. Our PT was recommending SNF for rehab. On 08/19, after being transferred to the ICU, her RN informed me that a daughter named Susan called from the [facility]. Apparently Renate had called Susan. The pt's RN Jesse received permission from Tiffany to talk to Susan. Susan said that Renate is not her daughter and not even an adopted daughter but that the p atient just lives with Renate. The patient has 7 children who are scattered all over the [place]. I then called Renate again and asked whether she is the adopted daughter legally or verbally and Renate said she is "verbally" an adopted daughter. I then corrected Renate and said that legally she is just considered a friend, if there is no legal paperwork for adoption. Renate confirmed that there are many children and the closest is Sin who lives in [facility] and he was to come to visit the patient. On 08/20, at bedside was the "adopted granddaughter" who said she is also the "sister of Renate". When I remarked that Renate is not a blood relative to Tiffany, then she said she "feels like she is a sister to Renate, because they are so close". I told her that medical legally she is just considered a friend. I did speak to Social Work about these family interactions and ask Social Work to establish if there is the DPOA and who are all the people that we are allowed to speak with, about the pt. On 08/21, I updated her son Sin from [place], her biologic granddaughter Yvonne, an d the family friend Yolis, and daughter was on phone, that medical legally if there is no one person designated as a DPOA, then all the current children (5 of 7 are alive), will need to agree on what we do, if the patient cannot make her own decisions (like she could not when she was obtunded and in junctional rhythm and was transferred to the ICU). She is no longer obtunded and can make her own decisions, but states she will eat but does not. She works with PT and OT in a rollercoaster pattern. I updated the son Sin, by phone today Plan: A Palliative care consult was requested to assist her in making decisions about her care, since she only intermittently eats and drinks, and cooperates mini jai with PT and OT, but mostly sleeps all day. Today I spoke to Laverne Bhatt NP about seeing her, and pt will be seen by Palliative Care on Mon (today is Fri). (2) Acute and chronic respiratory failure with hypoxia Assessment/Plan: Assessment/Plan: Patient was more hypoxic several days ago and work-up showed that she has a new pneumonia found on CXR on her 3rd day here, and antibx were started after cx obtained. She was in new atrial flutter with RVR then too. All labs were reviewed. Troponins went from 7 to 20. I ordered her to be on oxy mask when she is asleep because she is a mouth breather Plan: Continue supplemental O2, target saturation is > 88% (3) Cavitary lesion of lung Assessment/Plan: Her CXR on 08/17 showed a new RUL pneumonia. We obtained blood cx and sputum cx We had her on antibx to cover a Healthcare-associated pneumonia: using IV vancomycin, and IV Cefepime. August 22, 2022-sputum culture grew E. coli so we DC'd vancomycin and kept her cefepime and added Flagyl for possibility of aspiration pneumonia August 23, 2022-sputum culture then grew MRSA so we added back IV vancomycin August 24, 2022 per pharmacy recommendations switching from cefepime to Rocephin which sensitivities of the culture show that is appropriate for the E. coli and will continue with IV vancomycin continue with IV Flagyl which was added for possibility of aspiration pneumonia also August 25, 2022-patient seemed more alert & responsive and we continued that antibiotic combination regimen for at least a total of 7 days, since her sputum grew E. coli and MRSA August 28, 2022-patient was having increasing leukocytosis and is up to 33,000. Chest x-ray showed a suspected cavitary lesion in the right upper lung zone; differential included necrotizing pneumonia/aspiration pneumonia versus mass. The CT scan was done 08/28 and was read as having a cavitary lesion enlarging during her time here, which could be PNA from fungus vs bacteria Plan: Continue with iv Vanco, iv Fluconazole, and iv Flagyl Cont probiotic (4) Fall at home Impression: Patient has a very bruised and mildly swollen left upper eyelid. That was the fall from several days ago. Following that she rolled out of bed 2 days later, landing on her left side she thinks. She complained of L sided pain s/p GLF and neck pain s/p GLF, in the ED. H/o recent L hip fracture s/p ORIF Her CSpine CT showed : DJD C1-C2, C5-C6, C6-C7 Her orthostatic vital signs reveal volume depletion, when checked the past several days. She received iv fluids for 2 days I restart Gabapentin at a lower dose of 100 mg TID not 300 mg TID She received 2 days of IV fluids, approximately 2 L positive in fluid balance. Chest x-ray today 08/17/2022 shows mild blunting of her costophrenic angles Plan: Since the patient has had recent orthostasis, I did not restart her Lasix, and I doubt she needs it, now that she is barely eating or drinking Her IV fluids were stopped when BNP was noted to be elevated I am resuming iv fluids today due to her poor po intake, D5W at 83.33 cc/hr. Remain on lower gabapentin dose (300 mg tid was decreased to 100 mg TID), and today I will decrease that to BID at 1300 & 2000 PT and OT rehab needs to continue (5) Severe protein calorie malnutrition The patient's BMI is only 17. She is cachectic, has temporal wasting and sunken eyes and diffuse muscle wasting and loss of subcutaneous fat. She screened for excessive weight loss, done by our Invoice Machine Operator: Has had nutritional intake of less than 50% for 2 weeks or more, and has lost 12% of her weight in 6 months. Her labs showed a LDL of 48 and an HDL of 18, and she was on a statin at home. I ordered a more liberalized diet with Invoice Machine Operator to take her meal choices I stopped her statin and will plan discharge off the statin. I started her on omega-3 tablet daily to increase her HDL On 08/18 I spoke to the daughter who was visiting in her room, who confirmed that her mother has a very poor appetite and mostly eats cottage cheese and peaches, she also likes well cooked asparagus and chocolate pudding. On 08/21, when I asked what protein she eats, the family at bedside told me that she also likes peanut butter and hard-boiled eggs. Plan: I have added Boost to be given with all meals Cont Remeron to stimulate appetite. (6) UTI Assessment/Plan: For the last several days she has had urinary retention and needed straight cath. On 08/19 a Paz catheter was inserted due to high volume on bladder scan. During that insertion she had white purulent urine drained. A urinalysis was sent off and this had many WBCs and many bacteria. That urine culture is growing nothing (probably because she had a partially treated UTI, from already being on cefepime for her pneumonia) All labs were reviewed. Her white count lucia, I suspect the persistently elevated WBC was initially from this newly found UTI Plan: I have kept her on her iv antibx which were started for the HCAP (7) Acute urinary retention Assessment/Plan: For the last several nights the patient has had high residual on bladder scanning, showing urinary retention of 400-600. Straight caths were needed. I ordered a Paz insertion because of her severe shortness of breath even at rest, plus this urinary retention. The patient is on a bladder medication which has been continued here I suspect this acute UTI is what caused the urinary retention Plan: Cont Paz for now (8) COPD with hypoxia Assessment/Plan: This new pneumonia had caused her to wheeze. She now has a COPD exacerbation. She still has wet phlegm in upper airway, and she only clears her throat, she seems to be too weak to cough it up. I started Montelukast q pm Because of very poor air movement on exam, I added Solu-Medrol 40 mg tid. On 08/25, patient's Solu-Medrol was DC'd Plan: Cont Xopenex nebulized bronchodilators, Montelukast Cont Mucinex and Solumedrol I also ordered chest PT and flutter valve TID, for expectoration, if she can cooperate (9) Paroxysmal Atrial flutter Assessment/Plan: The patient went into new A-fib spontaneously converted back to sinus rhythm, then went into atrial flutter with RVR on 08/17, when she was at her worst resp distress. After her morning Cardizem dose, she converted to NSR. Then she had Paroxysms of atrial flutter with 2-1 and 3-1 block for several days. Troponins went from 7 to 20, likely rate-related demand ischemia. Her BNP was mildly elevated 208>> 246 Earlier, she was already having short runs of PSVT, at rates of 115. She had an Echocardiogram done her 08/15, which showed normal LV size and function and normal RV size and function When heart rate was 100-140 so Cardizem CD was resumed but not at 240 mg but at 120 mg. I put a hold on her Cardizem CD, because of the junctional heather rhythm. Plan: This patient has tachybradycardia syndrome. 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 She was transferred to the ICU. External pacer patches were put on as a precaution and the pacemaker device was moved into her ICU room, but she did not need to be externally paced. I put her on an Aminophylline continuous IV drip, to give her the desired side effect of a higher heart rate, for 24 hours Her labs were checked when she was transferred to the ICU. Her potassium was 5.5 which may have been the cause of the junctional bradycardia. The troponins were checked and EKG was done and these did not reveal an acute NE. Her Echo had been done earlier this admission which showed normal chamber sizes and normal LV and RV contractility. I stopped the Cardizem CD temporarily. About 12 hours after the aminophylline was stopped, her rhythm was normal sinus at 70-80. (11) Sinus pause Several days ago, she had a 4.8-second pause, came out of A-fib with that and went into sinus rhythm I decreased the metoprolol from 37.5 twice daily down to 12.5 twice daily. No further pauses were seen with med adjustments. I suspect this patient has tachy-bradycardia syndrome. Plan: If needed, I would discuss with her if she has any desire to be considered for transfer for placing a pacemaker and EP/cardiology consultation - Current Meds Current Meds: Current Medications Generic Name Dose Route Start Last Admin Trade Name Sugey PRN Reason Stop Dose Admin Aspirin 81 mg 08/14/22 09:00 09/01/22 10:14 Aspirin Chew 81 Mg Tablet PO 81 mg DAILY HENOK Administration Enoxaparin Sodium 40 mg 08/14/22 09:00 09/01/22 10:19 Enoxaparin 40 Mg/0.4 Ml Syringe SUBQ 40 mg DAILY HENOK Administration Famotidine 20 mg 08/25/22 21:00 09/01/22 10:18 Famotidine 20 Mg Tablet PO 20 mg BID HENOK Administration Gabapentin 100 mg 08/21/22 13:00 09/01/22 12:23 Gabapentin 100 Mg Capsule PO 100 mg 1300,2000 HENOK Administration Guaifenesin 600 mg 08/17/22 10:00 09/01/22 10:19 Guaifenesin 600 Mg Tablet PO 600 mg BID HENOK Administration Vancomycin HCl 1 gm/ Sodium 250 mls @ 167 mls/hr 08/25/22 13:00 08/31/22 16:06 Chloride IV Infused Q24H HENOK Infusion Fluconazole 100 mls @ 100 mls/hr 08/31/22 09:00 09/01/22 11:57 Diflucan 200 Mg/100 Ml IV Infused DAILY HENOK Infusion Metronidazole 500 mg in 100 mls @ 100 mls/hr 09/01/22 11:00 09/01/22 12:23 Flagyl 500 Mg/100 Ml IV 100 mls/hr Q8H HENOK Administration Levalbuterol HCl 1.25 mg 08/17/22 14:59 09/01/22 11:18 Levalbuterol 1.25 Mg/3 Ml Neb INH 1.25 mg RTQID HENOK Administration Metoprolol Tartrate 12.5 mg 08/30/22 21:00 09/01/22 10:17 Metoprolol Tartrate 25 Mg Tablet PO 12.5 mg BID HENOK Administration Mirtazapine 15 mg 08/21/22 21:00 08/31/22 21:15 Mirtazapine 15 Mg Tablet PO 15 mg QPM HENOK Administration Montelukast Sodium 10 mg 08/19/22 21:00 08/31/22 21:16 Montelukast 10 Mg Tablet PO 10 mg QPM HENOK Administration Morphine Sulfate 2 mg 08/19/22 09:12 08/22/22 12:15 Morphine 2 Mg/Ml Carpuject IVP 2 mg Q4HR PRN Administration Dyspnea Multivitamins/Minerals 1 tab 08/15/22 17:00 09/01/22 10:19 Multivitamin W/Minerals Tablet PO 1 tab DAILYWM HENOK Administration Pfija-0-Sunf Ethyl Esters 1 gm 08/20/22 17:00 09/01/22 10:18 Lorimor-3 Acid Ethyl Esters 1 Gm Capsule PO 1 gm BIDWM HENOK Administration Saccharomyces Boulardii 250 mg 08/17/22 17:00 09/01/22 10:19 Saccharomyces Boulardii 250 Mg Capsule PO 250 mg BIDWM HENOK Administration Sodium Chloride 10 ml 08/13/22 19:43 09/01/22 12:24 Sodium Chloride Flush 0.9% 10 Ml Syringe IVP 10 ml PRN PRN Administration NEEDED PER PROVIDER ORDERS Sodium Chloride 10 ml 08/14/22 01:00 09/01/22 10:20 Sodium Chloride Flush 0.9% 10 Ml Syringe IVP 10 ml 0100,0900,1700 HENOK Administration Tamsulosin HCl 0.4 mg 08/15/22 09:00 09/01/22 10:14 Tamsulosin 0.4 Mg Capsule PO 0.4 mg DAILY HENOK Administration - Lab Result Fish Bone Diagrams: 09/06/22 05:51 09/06/22 05:51 - Additional Planning My Orders: My Active Orders 09/01/22 11:00 metroNIDAZOLE 500 MG/100 ML [Flagyl 500 mg/100 ml] 500 mg in 100 ml IV Q8H 09/02/22 05:00 BMP - BASIC METABOLIC PANEL [CHEM] DAILYLAB CBC - COMP BLD CT W/AUTO DIFF [HEME] DAILYLAB Subjective - Subjective Patient Reports: No Complaints Nursing Reports: Other (Mostly sleeps, cooperates somewhat with PT and OT, was able to get OOB on her own today) Objective Vital Signs: Vital Signs - 24 hr 08/31/22 08/31/22 08/31/22 15:14 16:05 21:11 Temperature 36.5 C Heart Rate 85 Heart Rate [ 90 Brachial] Heart Rate [ 84 Monitoring electrodes] Respiratory 19 15 18 Rate Blood Pressure Blood Pressure 127/55 L 133/69 H [Right Brachial artery] O2 Saturation 92 93 If not protocol 2 2 2 : Oxygen Flow, liters/minute 08/31/22 08/31/22 08/31/22 21:13 21:30 22:16 Temperature Heart Rate Heart Rate [ Brachial] Heart Rate [ Monitoring electrodes] Respiratory 18 Rate Blood Pressure 133/69 H Blood Pressure [Right Brachial artery] O2 Saturation If not protocol 2 2 : Oxygen Flow, liters/minute 08/31/22 09/01/22 09/01/22 23:51 05:00 07:29 Temperature 36.9 C 36.5 C Heart Rate 80 Heart Rate [ 85 80 Brachial] Heart Rate [ Monitoring electrodes] Respiratory 16 18 18 Rate Blood Pressure Blood Pressure 137/62 H 151/67 H [Right Brachial artery] O2 Saturation 95 85 L If not protocol 2 2 2 : Oxygen Flow, liters/minute 09/01/22 09/01/22 09/01/22 08:37 10:17 11:18 Temperature 36.3 C L Heart Rate 84 Heart Rate [ 86 Brachial] Heart Rate [ Monitoring electrodes] Respiratory 18 18 Rate Blood Pressure 150/59 H Blood Pressure 150/73 H [Right Brachial artery] O2 Saturation 93 If not protocol 2 2 : Oxygen Flow, liters/minute 09/01/22 12:35 Temperature 36.5 C Heart Rate Heart Rate [ 70 Brachial] Heart Rate [ Monitoring electrodes] Respiratory Rate Blood Pressure Blood Pressure 153/57 H [Right Brachial artery] O2 Saturation 96 If not protocol 3 : Oxygen Flow, liters/minute Oxygen O2 Source Nasal cannula I&O (Last 24 Hrs): Intake and Output Totals x24h 08/30/22 08/31/22 09/01/22 23:59 23:59 23:59 Intake Total 550 670 100 Output Total 725 750 700 Balance -175 -80 -600 General: Alert, Oriented x3, Other (Disheveled and cachectic) HEENT: Mucous membr. moist/pink Neck: Supple, No JVD Neuro: Alert, Non Focal, Other (generalized weakness) Cardiovascular: No murmurs Respiratory: No respiratory distress (while on O2 suppl via n.c.) Abdomen: Soft Extremities: No clubbing, No edema - Results Results: Laboratory Results WBC 15.2 x10^3/uL (4.8-10.8) H 08/31/22 07:56 RBC 3.85 10^6/uL (4.20-5.40) L 08/31/22 07:56 Hgb 10.6 g/dL (12.0-16.0) L 08/31/22 07:56 Hct 36.6 % (37.0-47.0) L 08/31/22 07:56 MCV 95.1 fL (81.0-99.0) 08/31/22 07:56 MCH 27.5 pg (27.0-31.0) 08/31/22 07:56 MCHC 29.0 g/dL (32.0-36.0) L 08/31/22 07:56 RDW 14.2 % (12.0-15.0) 08/31/22 07:56 Plt Count 292 10^3/uL (130-450) 08/31/22 07:56 MPV 10.0 fL (7.9-10.8) 08/31/22 07:56 Neut # (Auto) 13.2 10^3/uL (1.5-6.6) H 08/31/22 07:56 Lymph # (Auto) 1.2 10^3/uL (1.5-3.5) L 08/31/22 07:56 Cavalier # (Auto) 0.5 10^3/uL (0.0-1.0) 08/31/22 07:56 Eos # (Auto) 0.1 10^3/uL (0.0-0.7) 08/31/22 07:56 Baso # (Auto) 0.0 10^3/uL (0.0-0.1) 08/31/22 07:56 Absolute Nucleated RBC 0.00 x10^3/uL 08/31/22 07:56 Total Counted 100 08/29/22 06:05 Band Neuts % (Manual) 0 % (0-10) 08/29/22 06:05 Reactive Lymphs % (Man) 2 % 08/21/22 07:41 Abnorm Lymph % (Manual) 0 % 08/29/22 06:05 Metamyelocytes % 1 % (-0) H 08/26/22 08:09 Nucleated RBC % 0.0 /100WBC 08/31/22 07:56 Neutrophils # (Manual) 20.4 10^3/uL (1.5-6.6) H 08/29/22 06:05 Lymphocytes # (Manual) 1.9 10^3/uL (1.5-3.5) 08/29/22 06:05 Monocytes # (Manual) 1.2 10^3/uL (0.0-1.0) H 08/29/22 06:05 Eosinophils # (Manual) 0.2 10^3/uL (0-0.7) 08/29/22 06:05 Basophils # (Manual) 0.0 10^3/uL (0-0.1) 08/29/22 06:05 Differential Comment MANUAL DIFFERENTIAL 08/29/22 06:05 Manual Slide Review Indicated 08/28/22 07:45 WBC Morphology NORMAL APPEARANCE (NORMAL) 08/29/22 06:05 Platelet Estimate NORMAL (130-450,000) (NORMAL) 08/29/22 06:05 Platelet Morphology NORMAL APPEARANCE (NORMAL) 08/29/22 06:05 RBC Morph Micro Appear 1+ ANISOCYTOSIS (NORMAL) 08/29/22 06:05 Bld Gas Analysis Time 0933 08/29/22 09:25 Sample Site RIGHT RADIAL 08/29/22 09:25 ABG pH 7.40 (7.35-7.45) 08/29/22 09:25 ABG pCO2 64 mmHg (34-45) H* 08/29/22 09:25 ABG pO2 67 mmHg (80-100) L 08/29/22 09:25 ABG HCO3 39.0 mmol/L (22.0-26.0) H 08/29/22 09:25 ABG Total CO2 41.0 MMOL/L (21.0-29.0) H* 08/29/22 09:25 ABG O2 Saturation 94 % (94-98) 08/29/22 09:25 ABG Base Excess 11.8 mmol/L (-2.0-3.0) H 08/29/22 09:25 Migue Test POSITIVE 08/29/22 09:25 VBG pH 7.453 (7.31-7.41) H 08/30/22 05:15 Ionized Calcium 1.02 mmol/L (1.15-1.33) L 08/30/22 05:15 O2 Delivery Device OXYMASK 08/29/22 09:25 O2 Liters/Min 2.00 LPM 08/29/22 09:25 FiO2 44.00 08/17/22 05:40 Sodium 142 mmol/L (135-145) 08/31/22 07:56 Potassium 3.9 mmol/L (3.5-5.0) 08/31/22 07:56 Chloride 102 mmol/L (101-111) 08/31/22 07:56 Carbon Dioxide 35 mmol/L (21-32) H 08/31/22 07:56 Anion Gap 5.0 (6-13) L 08/31/22 07:56 BUN 9 mg/dL (6-20) 08/31/22 07:56 Creatinine 0.4 mg/dL (0.4-1.0) 08/31/22 07:56 Estimated GFR (MDRD) 153 (>89) 08/31/22 07:56 Glucose 77 mg/dL (70-100) 08/31/22 07:56 Calcium 7.8 mg/dL (8.5-10.3) L 08/31/22 07:56 Ionized Calcium YES 08/30/22 05:15 Phosphorus 2.6 mg/dL (2.5-4.6) 08/22/22 05:16 Magnesium 2.3 mg/dL (1.7-2.8) 08/22/22 18:26 Total Bilirubin 0.5 mg/dL (0.2-1.0) 08/25/22 07:15 AST 22 IU/L (10-42) 08/25/22 07:15 ALT 39 IU/L (10-60) 08/25/22 07:15 Alkaline Phosphatase 82 IU/L (42-121) 08/25/22 07:15 Total Creatine Kinase 16 IU/L (22-269) L 08/13/22 16:15 Troponin I High Sens 9.8 ng/L (2.3-14.8) 08/19/22 17:49 B-Natriuretic Peptide 246 pg/mL (5-100) H 08/18/22 08:05 Total Protein 5.5 g/dL (6.7-8.2) L 08/25/22 07:15 Albumin 2.1 g/dL (3.2-5.5) L 08/25/22 07:15 Globulin 3.4 g/dL (2.1-4.2) 08/25/22 07:15 Albumin/Globulin Ratio 0.6 (1.0-2.2) L 08/25/22 07:15 Triglycerides 68 mg/dL (-149) 08/14/22 05:04 Cholesterol 60 mg/dL (-199) 08/14/22 05:04 LDL Cholesterol, Calc 28 mg/dL (-129) 08/14/22 05:04 VLDL Cholesterol 14 mg/dL 08/14/22 05:04 HDL Cholesterol 18 mg/dL (60-) L 08/14/22 05:04 LDL/HDL Ratio 1.6 (<4.4) 08/14/22 05:04 Cholesterol/HDL Ratio 3.3 (<4.4) 08/14/22 05:04 Urine Color YELLOW 08/29/22 03:30 Urine Clarity CLEAR (CLEAR) 08/29/22 03:30 Urine pH 6.5 PH (5.0-7.5) 08/29/22 03:30 Ur Specific [place] 1.010 (1.002-1.030) 08/29/22 03:30 Urine Protein 30 mg/dL (NEGATIVE) H 08/29/22 03:30 Urine Glucose (UA) NEGATIVE mg/dL (NEGATIVE) 08/29/22 03:30 Urine Ketones NEGATIVE mg/dL (NEGATIVE) 08/29/22 03:30 Urine Occult Blood NEGATIVE (NEGATIVE) 08/29/22 03:30 Urine Nitrite NEGATIVE (NEGATIVE) 08/29/22 03:30 Urine Bilirubin NEGATIVE (NEGATIVE) 08/29/22 03:30 Urine Urobilinogen 0.2 (NORMAL) E.U./dL (NORMAL) 08/29/22 03:30 Ur Leukocyte Esterase NEGATIVE (NEGATIVE) 08/29/22 03:30 Urine RBC 0-5 /HPF (0-5) 08/29/22 03:30 Urine WBC 0-3 /HPF (0-5) 08/29/22 03:30 Urine WBC Clumps Cancelled 08/19/22 10:40 Ur Epithelial Cells Cancelled 08/19/22 10:40 Ur Squamous Epith Cells NONE SEEN (<= Few) 08/29/22 03:30 Urine Crystals Cancelled 08/19/22 10:40 Amorphous Sediment Cancelled 08/19/22 10:40 Urine Bacteria Rare /HPF (None Seen) 08/29/22 03:30 Urine Casts Cancelled 08/19/22 10:40 Urine Starch Cancelled 08/19/22 10:40 Urine Mucus Cancelled 08/19/22 10:40 Urine Trichomonas Cancelled 08/19/22 10:40 Urine Yeast Cancelled 08/19/22 10:40 Urine Sperm Cancelled 08/19/22 10:40 Ur Oval Fat Bodies Cancelled 08/19/22 10:40 Ur Microscopic Review NOT INDICATED 08/13/22 17:52 Urine Culture Comments NOT INDICATED 08/29/22 03:30 Nasal Screen MRSA (PCR) NEGATIVE (NEGATIVE) 08/19/22 16:35 Last Dose Date 08/20/22 08/20/22 14:16 Last Dose Time 1312 08/20/22 14:16 Vancomycin Peak 36.3 ug/mL (20.0-40.0) 08/20/22 14:16 Vancomycin Trough 14.6 ug/mL (10.0-20.0) 08/20/22 09:32 SARS-CoV-2 (PCR) NOT DETECTED 08/18/22 08:43 - Procedures Procedures: Procedures EXCISION OF CECUM, ENDO (03/24/19) EXCISION OF SIGMOID COLON, ENDO (03/24/19) EXCISION OF TRANSVERSE COLON, ENDO (03/24/19)
[2022-09-01] MEDS: VANCOMYCIN INJ 1 GM in SODIUM CHLORIDE 0.9% 250 ML IV SCH ×2 (13:43→15:31)
[2022-09-01] MEDS: MONTELUKAST 10 MG TABLET PO SCH (21:40)
[2022-09-01] MEDS: MIRTAZAPINE 15 MG TABLET PO SCH (21:44)
[2022-09-02] MEDS: SODIUM CHLORIDE FLUSH 0.9% 10 ML SYRINGE IVP SCH ×3 (00:28→15:36)
[2022-09-02] MEDS: metroNIDAZOLE 500 MG/100 ML 500 MG/100 ML BAG IV SCH ×3 (03:07→18:30)
[2022-09-02 04:57] LABS: BASOPHILS # (AUTO) 0.1 10^3/uL (0.0-0.1); BASOPHILS % (AUTO) 0.5 %; EOSINOPHILS # (AUTO) 0.1 10^3/uL (0.0-0.7); EOSINOPHILS % (AUTO) 1.1 %; HCT - HEMATOCRIT 32.5 % (37.0-47.0); HGB - HEMOGLOBIN 9.3 g/dL (12.0-16.0); LYMPHOCYTES # (AUTO) 1.6 10^3/uL (1.5-3.5); LYMPHOCYTES % (AUTO) 12.9 %; MEAN CORPUSCULAR HEMOGLOBIN 27.3 pg (27.0-31.0); MEAN CORPUSCULAR HGB CONC 28.6 g/dL (32.0-36.0); MEAN CORPUSCULAR VOLUME 95.3 fL (81.0-99.0); MEAN PLATELET VOLUME 9.4 fL (7.9-10.8); MONOCYTES # (AUTO) 0.6 10^3/uL (0.0-1.0); MONOCYTES % (AUTO) 4.5 %; NEUTROPHILS # (AUTO) 10.2 10^3/uL (1.5-6.6); NEUTROPHILS % (AUTO) 80.4 %; PLT - PLATELET COUNT 271 10^3/uL (130-450); RED BLOOD COUNT 3.41 10^6/uL (4.20-5.40); RED CELL DISTRIBUTION WIDTH 14.1 % (12.0-15.0); WHITE BLOOD COUNT 12.7 x10^3/uL (4.8-10.8)
[2022-09-02 05:21] LABS: CALCIUM 7.7 mg/dL (8.5-10.3); CREATININE 0.4 mg/dL (0.4-1.0); MAGNESIUM 2.1 mg/dL (1.7-2.8); PHOSPHORUS 2.6 mg/dL (2.5-4.6); POTASSIUM 3.6 mmol/L (3.5-5.0)
[2022-09-02] MEDS: LEVALBUTEROL 1.25 MG/3 ML NEB INH SCH ×4 (07:01→19:01)
[2022-09-02] MEDS: ZINC OXIDE 20% OINT 30 GM TUBE TOP PRN (09:04)
[2022-09-02] MEDS: SACCHAROMYCES BOULARDII 250 MG CAPSULE PO SCH ×2 (09:05→17:07)
[2022-09-02] MEDS: TAMSULOSIN 0.4 MG CAPSULE PO SCH (09:05)
[2022-09-02] MEDS: guaiFENesin 600 MG TABLET PO SCH ×2 (09:05→20:01)
[2022-09-02] MEDS: OMEGA-3 ACID ETHYL ESTERS 1 GM CAPSULE PO SCH ×2 (09:05→17:07)
[2022-09-02] MEDS: ASPIRIN CHEW 81 MG TABLET PO SCH (09:05)
[2022-09-02] MEDS: FLUCONAZOLE 200 MG/100 ML 100 ML IV SCH (09:06)
[2022-09-02] MEDS: METOPROLOL TARTRATE 25 MG TABLET PO SCH ×2 (09:06→20:01)
[2022-09-02] MEDS: FAMOTIDINE 20 MG TABLET PO SCH ×2 (09:06→20:01)
[2022-09-02] MEDS: ENOXAPARIN 40 MG/0.4 ML SYRINGE SUBQ SCH (09:06)
[2022-09-02] MEDS: MULTIVITAMIN W/MINERALS TABLET PO SCH (09:07)
[2022-09-02 12:32] LABS: VANCOMYCIN,TROUGH 12.9 ug/mL (10.0-20.0)
[2022-09-02] MEDS: GABAPENTIN 100 MG CAPSULE PO SCH ×2 (13:41→20:01)
[2022-09-02] MEDS: VANCOMYCIN INJ 1.25 GM in SODIUM CHLORIDE 0.9% 250 ML IV SCH (15:36)
--- NOTE | 2022-09-02 18:53 | PROVIDER PROGRESS NOTE ---
Assessment/Plan - Problem List (1) Generalized weakness Assessment/Plan: The brain MRI showed only diffuse changes of atrophy, no evidence of old stroke or recent stroke. The patient does carry a diagnosis of polio, which may have given L>R leg weakness. On 08/17 her O2 sat was 83% at rest, while on n.c.so she was put boo oxymask. I ordered for patient to be put on suppl O2 via oxy mask whenever she is asleep or napping. She has been too tired to participate with rehab for several days On 08/18 I updated the visitors in the room, regarding her new pneumonia and her overall weakness. Renate confirmed that the pt has a very poor appetite and mostly eats cottage cheese and peaches, she also likes well cooked asparagus and chocolate pudding. Also that day Renate requested that I get a Neurology consu lt. On 08/18, I called and spoke to the Neurologist on-call, and reviewed the entire case, including the 2 falls at home. This Neurologist said that I had done due diligence for this patient, and had no new recommendations. I lowered her gabapentin dose (300 mg tid to 100 mg at 1300 & 2000 PT and OT to keep working with her, since she is deconditioned and felt too weak to do PT, the last 3 days. Our PT was recommending SNF for rehab. On 08/19, after being transferred to the ICU, her RN informed me that a daughter named Susan called from the [facility]. Apparently Renate had called Susan. The pt's RN Jesse received permission from [facility] to talk to Susan. Susan said that Renate is not her daughter and not even an adopted daughter but that the patient just lives with Renate. The patient has 7 children who are scattered all over the [facility]. I then called Renate again and asked whether she is the adopted daughter legally or verbally and Renate said she is "verbally" an adopted daughter. I then corrected Renate and said that legally she is just considered a friend, if there is no legal paperwork for adoption. Renate confirmed that there are many children and the closest is Sin who lives in [facility] and he was to come to visit the patient. On 08/20, at bedside was the "adopted granddaughter" who said she is also the "sister of Renate". When I remarked that Renate is not a blood relative to Tiffany, this female visitor said she "feels like she is a sister to Renate, because they are so close". I told her that medical legally she is just considered a friend. I did speak to Social Work about these family interactions and ask Social Work to establish if there is the DPOA and who are all the people that we are allowed to speak with, about the pt. On 08/21, I updated her son Sin from [place], her biologic granddaughter Yvonne, and the family friend Yolis, and daughter was on phone, that medical legally if there is no one person designated as a DPOA, then all the current children (5 of 7 are alive), will need to agree on what we do, if the patient cannot make her own decisions (like she could not when she was obtunded and in junctional rhythm and was transferred to the ICU). Since 08/29, she is no longer obtunded and can make her own decisions, but eats minimally. She works with PT and OT in a rollercoaster pattern. On 08/30, she and I discussed her CODE BLUE wishes, and a new POLST was completed, with DNR/DNI ordered Plan: A Palliative care consult was requested to assist her in making decisions about her care, since she only intermittently eats and drinks, and cooperates minimally with PT and OT, but mostly sleeps all day. Laverne Bhatt NP will be seeing her on Mon (today is Sat). (2) Acute and chronic respiratory failure with hypoxia Assessment/Plan: Assessment/Plan: Patient was more hypoxic several days ago and work-up showed that she has a new pneumonia found on CXR on her 3rd day here, and antibx were started after cx obtained. She was in new atrial flutter with RVR then too. All labs were reviewed. Troponins had gone from 7 to 20. I ordered her to be on oxy mask when she is asleep because she is a mouth breather Plan: Continue supplemental O2, target saturation is > 88% (3) Cavitary lesion of lung Assessment/Plan: Her CXR on 08/17 showed a new RUL pneumonia. We obtained blood cx and sputum cx We had her on antibx to cover a Healthcare-associated pneumonia: using IV vancomycin, and IV Cefepime. August 22, 2022-sputum culture grew E. coli so we DC'd vancomycin and kept her cefepime and added Flagyl for possibility of aspiration pneumonia August 23, 2022-sputum culture then grew MRSA so we added back IV vancomycin August 24, 2022 per pharmacy recommendations switching from cefepime to Rocephin which sensitivities of the culture show that is appropriate for the E. coli and will continue with IV vancomycin continue with IV Flagyl which was added for possibility of aspiration pneumonia also August 25, 2022-patient seemed more alert & responsive and we continued that antibiotic combination regimen for at least a total of 7 days, since her sputum grew E. coli and MRSA August 28, 2022-patient was having increasing leukocytosis and is up to 33,000. Chest x-ray showed a suspected cavitary lesion in the right upper lung zone; differential included necrotizing pneumonia/aspiration pneumonia versus mass. The CT scan was done 08/28 and was read as having a cavitary lesion enlarging during her time here, which could be PNA from fungus vs bacteria Plan: Continue with iv Vanco, iv Fluconazole, and iv Flagyl Cont probiotic (4) Fall at home Impression: Patient has a very bruised and mildly swollen left upper eyelid. That was the fall from several days ago. Following that she rolled out of bed 2 days later, landing on her left side she thinks. She complained of L sided pain s/p GLF and neck pain s/p GLF, in the ED. H/o recent L hip fracture s/p ORIF Her CSpine CT showed : DJD C1-C2, C5-C6, C6-C7 Her orthostatic vital signs reveal volume depletion, when checked the past several days. She received iv fluids for 2 days I restart Gabapentin at a lower dose of 100 mg TID not 300 mg TID She received 2 days of IV fluids, approximately 2 L positive in fluid balance. Chest x-ray today 08/17/2022 shows mild blunting of her costophrenic angles Plan: Since the patient has had recent orthostasis, I did not restart her Lasix, and I doubt she needs it, now that she is barely eating or drinking Her IV fluids were stopped when BNP was noted to be elevated I am resuming iv fluids today due to her poor po intake, D5W at 83.33 cc/hr. Remain on lower gabapentin dose 100 mg TID at 1300 & 2000 PT and OT rehab needs to continue (5) Severe protein calorie malnutrition The patient's BMI is only 17. She is cachectic, has temporal wasting and sunken eyes and diffuse muscle wasting and loss of subcutaneous fat. She screened for excessive weight loss, done by our [employer]: Has had nutritional intake of less than 50% for 2 weeks or more, and has lost 12% of her weight in 6 months. Her labs showed a LDL of 48 and an HDL of 18, and she was on a statin at home. I ordered a more liberalized diet with [employer] to take her meal choices I stopped her statin and will plan discharge off the statin. I started her on omega-3 tablet daily to increase her HDL On 08/18 I spoke to the daughter who was visiting in her room, who confirmed that her mother has a very poor appetite and mostly eats cottage cheese and peaches, she also likes well cooked asparagus and chocolate pudding. On 08/21, when I asked what protein she eats, the family at bedside told me that she also likes peanut butter and hard-boiled eggs. Plan: Cont Boost to be given with all meals Cont Remeron to stimulate appetite. (6) UTI Assessment/Plan: For the last several days she has had urinary retention and needed straight cath. On 08/19 a Paz catheter was inserted due to high volume on bladder scan. During that insertion she had white purulent urine drained. A urinalysis was sent off and this had many WBCs and many bacteria. That urine culture is growing nothing (probably because she had a partially treated UTI, from already being on cefepime for her pneumonia) All labs were reviewed. Her white count lucia, I suspect the persistently elevated WBC was initially from this newly found UTI Plan: I have kept her on her iv antibx which were started for the HCAP (7) Acute urinary retention Assessment/Plan: Earlier this admission, the patient has had high residual on bladder scanning, showing urinary retention of 400-600. Straight caths were needed. I ordered a Paz insertion because of her severe shortness of breath even at rest, plus this urinary retention. The patient is on a bladder medication which has been continued here I suspect her acute UTI is what caused the urinary retention Plan: Cont Paz Will start to do bladder training soon, now that she is more alert, to remove Paz before discharge (8) COPD with hypoxia Assessment/Plan: This new pneumonia had caused her to wheeze. She now has a COPD exacerbation. She still has wet phlegm in upper airway, and she only clears her throat, she seems to be too weak to cough it up. I started Montelukast q pm Because of very poor air movement on exam, I added Solu-Medrol 40 mg tid. On 08/25, patient's Solu-Medrol was DC'd Plan: Cont Xopenex nebulized bronchodilators, Montelukast Cont Mucinex and Solumedrol Cont chest PT and/or flutter valve TID, for expectoration, if she can cooperate (9) Paroxysmal Atrial flutter Assessment/Plan: The patient went into new A-fib spontaneously converted back to sinus rhythm, then went into atrial flutter with RVR on 08/17, when she was at her worst resp distress. After her morning Cardizem dose, she converted to NSR. Then she had Paroxysms of atrial flutter with 2-1 and 3-1 block for several days. Troponins went from 7 to 20, likely rate-related demand ischemia. Her BNP was mildly elevated 208>> 246 Earlier, she was already having short runs of PSVT, at rates of 115. She had an Echocardiogram done her 08/15, which showed normal LV size and function and normal RV size and function When heart rate was 100-140, Cardizem CD was resumed but not at 240 mg but at 120 mg. I put a hold on her Cardizem CD, because of the junctional heather rhythm. Plan: This patient has tachybradycardia syndrome. 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 She was transferred to the ICU. External pacer patches were put on as a precaution and the pacemaker device was moved into her ICU room, but she did not need to be externally paced. I put her on an Aminophylline continuous IV drip, to give her the desired side effect of a higher heart rate, for 24 hours Her labs were checked when she was transferred to the ICU. Her potassium was 5.5 which may have been the cause of the junctional bradycardia. The troponins were checked and EKG was done and these did not reveal an acute MA. Her Echo had been done earlier this admission which showed normal chamber sizes and normal LV and RV contractility. I stopped the Cardizem CD temporarily. About 12 hours after the aminophylline was stopped, her rhythm was normal sinus at 70-80. No further pauses were seen with med adjustments. I suspect this patient has tachy-bradycardia syndrome. (11) Sinus pause Several days ago, she had a 4.8-second pause, came out of A-fib with that and went into sinus rhythm I decreased the metoprolol from 37.5 twice daily down to 12.5 twice daily. No further pauses were seen with med adjustments. I suspect this patient has tachy-bradycardia syndrome. Plan: If needed, I would discuss with her if she has any desire to be considered for transfer for placing a pacemaker and EP/cardiology consultation - Current Meds Current Meds: Current Medications Generic Name Dose Route Start Last Admin Trade Name Freq PRN Reason Stop Dose Admin Aspirin 81 mg 08/14/22 09:00 09/02/22 09:05 Aspirin Chew 81 Mg Tablet PO 81 mg DAILY HENOK Administration Enoxaparin Sodium 40 mg 08/14/22 09:00 09/02/22 09:06 Enoxaparin 40 Mg/0.4 Ml Syringe SUBQ 40 mg DAILY HENOK Administration Famotidine 20 mg 08/25/22 21:00 09/02/22 09:06 Famotidine 20 Mg Tablet PO 20 mg BID HENOK Administration Gabapentin 100 mg 08/21/22 13:00 09/02/22 13:41 Gabapentin 100 Mg Capsule PO 100 mg 1300,2000 HENOK Administration Guaifenesin 600 mg 08/17/22 10:00 09/02/22 09:05 Guaifenesin 600 Mg Tablet PO 600 mg BID HENOK Administration Fluconazole 100 mls @ 100 mls/hr 08/31/22 09:00 09/02/22 10:10 Diflucan 200 Mg/100 Ml IV Infused DAILY HENOK Infusion Metronidazole 500 mg in 100 mls @ 100 mls/hr 09/01/22 11:00 09/02/22 18:30 Flagyl 500 Mg/100 Ml IV 100 mls/hr Q8H HENOK Administration Vancomycin HCl 1.25 gm/ Sodium 250 mls @ 167 mls/hr 09/02/22 15:00 09/02/22 18:18 Chloride IV Infused Q24H HENOK Infusion Levalbuterol HCl 1.25 mg 08/17/22 14:59 09/02/22 16:37 Levalbuterol 1.25 Mg/3 Ml Neb INH 1.25 mg RTQID HENOK Administration Metoprolol Tartrate 12.5 mg 08/30/22 21:00 09/02/22 09:06 Metoprolol Tartrate 25 Mg Tablet PO 12.5 mg BID HENOK Administration Mirtazapine 15 mg 08/21/22 21:00 09/01/22 21:44 Mirtazapine 15 Mg Tablet PO 15 mg QPM HENOK Administration Montelukast Sodium 10 mg 08/19/22 21:00 09/01/22 21:40 Montelukast 10 Mg Tablet PO 10 mg QPM HENOK Administration Morphine Sulfate 2 mg 08/19/22 09:12 08/22/22 12:15 Morphine 2 Mg/Ml Carpuject IVP 2 mg Q4HR PRN Administration Dyspnea Multi-Ingredient Ointment 1 applic 08/26/22 18:33 09/02/22 09:04 Zinc Oxide 20% Oint 30 Gm Tube TOP 1 applic PRN PRN Administration Skin Care Multivitamins/Minerals 1 tab 08/15/22 17:00 09/02/22 09:07 Multivitamin W/Minerals Tablet PO 1 tab DAILYWM HENOK Administration Siepu-1-Vxah Ethyl Esters 1 gm 08/20/22 17:00 09/02/22 17:07 [place]-3 Acid Ethyl Esters 1 Gm Capsule PO 1 gm BIDWM HENOK Administration Saccharomyces Boulardii 250 mg 08/17/22 17:00 09/02/22 17:07 Saccharomyces Boulardii 250 Mg Capsule PO 250 mg BIDWM HENOK Administration Sodium Chloride 10 ml 08/13/22 19:43 09/01/22 12:24 Sodium Chloride Flush 0.9% 10 Ml Syringe IVP 10 ml PRN PRN Administration NEEDED PER PROVIDER ORDERS Sodium Chloride 10 ml 08/14/22 01:00 09/02/22 15:36 Sodium Chloride Flush 0.9% 10 Ml Syringe IVP 10 ml 0100,0900,1700 HENOK Administration Tamsulosin HCl 0.4 mg 08/15/22 09:00 09/02/22 09:05 Tamsulosin 0.4 Mg Capsule PO 0.4 mg DAILY HENOK Administration - Lab Result Fish Bone Diagrams: 09/06/22 05:51 09/06/22 05:51 - Additional Planning My Orders: My Active Orders 09/02/22 15:00 Vancomycin Inj [Vancomycin] 1.25 gm Sodium Chloride 0.9% [Normal Saline 0.9%] 250 ml IV Q24H Subjective - Subjective Patient Reports: Feeling Better (Feels stronger), No Complaints Nursing Reports: Other (RN reported she was OOB and ate better) Objective Vital Signs: Vital Signs - 24 hr 09/01/22 09/01/22 09/01/22 20:12 20:15 20:42 Temperature 36.7 C Heart Rate 80 Heart Rate [ 80 Brachial] Respiratory 18 20 Rate Blood Pressure Blood Pressure 127/57 L [Right Brachial artery] O2 Saturation 95 If not protocol 3 3 3 : Oxygen Flow, liters/minute 09/01/22 09/02/22 09/02/22 21:40 00:26 04:18 Temperature 36.3 C L 36.5 C Heart Rate Heart Rate [ 71 76 Brachial] Respiratory 16 18 Rate Blood Pressure 133/61 H Blood Pressure 129/73 114/50 L [Right Brachial artery] O2 Saturation 98 92 If not protocol 3 3 : Oxygen Flow, liters/minute 09/02/22 09/02/22 09/02/22 07:02 08:35 09:06 Temperature 36.3 C L Heart Rate 69 Heart Rate [ 97 Brachial] Respiratory 18 16 Rate Blood Pressure 132/46 H Blood Pressure 136/46 H [Right Brachial artery] O2 Saturation 89 L If not protocol 3 3 : Oxygen Flow, liters/minute 09/02/22 09/02/22 09/02/22 12:00 12:53 15:35 Temperature 36.3 C L 36.6 C Heart Rate 68 Heart Rate [ 79 70 Brachial] Respiratory 17 18 16 Rate Blood Pressure Blood Pressure 98/61 135/54 H [Right Brachial artery] O2 Saturation 92 91 L If not protocol 2 3 3 : Oxygen Flow, liters/minute 09/02/22 09/02/22 16:37 17:08 Temperature Heart Rate 79 Heart Rate [ Brachial] Respiratory 17 Rate Blood Pressure Blood Pressure [Right Brachial artery] O2 Saturation 93 If not protocol 2 2 : Oxygen Flow, liters/minute Oxygen O2 Source Nasal cannula I&O (Last 24 Hrs): Intake and Output Totals x24h 08/31/22 09/01/22 09/02/22 23:59 23:59 23:59 Intake Total 670 1050 1180 Output Total 750 1750 1950 Balance -80 -700 -770 General: Alert, Oriented x3, Other (Disheveled, cachexic) HEENT: Mucous membr. moist/pink Neuro: Alert, Non Focal, Other (Weak) Cardiovascular: No murmurs Respiratory: No respiratory distress (on O2 n.c.), Other (poor air mvm) Genitourinary: Other (Has a Paz) Extremities: No clubbing, No edema - Results Results: Laboratory Results WBC 12.7 x10^3/uL (4.8-10.8) H 09/02/22 04:23 RBC 3.41 10^6/uL (4.20-5.40) L 09/02/22 04:23 Hgb 9.3 g/dL (12.0-16.0) L 09/02/22 04:23 Hct 32.5 % (37.0-47.0) L 09/02/22 04:23 MCV 95.3 fL (81.0-99.0) 09/02/22 04:23 MCH 27.3 pg (27.0-31.0) 09/02/22 04:23 MCHC 28.6 g/dL (32.0-36.0) L 09/02/22 04:23 RDW 14.1 % (12.0-15.0) 09/02/22 04:23 Plt Count 271 10^3/uL (130-450) 09/02/22 04:23 MPV 9.4 fL (7.9-10.8) 09/02/22 04:23 Neut # (Auto) 10.2 10^3/uL (1.5-6.6) H 09/02/22 04:23 Lymph # (Auto) 1.6 10^3/uL (1.5-3.5) 09/02/22 04:23 [place] # (Auto) 0.6 10^3/uL (0.0-1.0) 09/02/22 04:23 Eos # (Auto) 0.1 10^3/uL (0.0-0.7) 09/02/22 04:23 Baso # (Auto) 0.1 10^3/uL (0.0-0.1) 09/02/22 04:23 Absolute Nucleated RBC 0.00 x10^3/uL 09/02/22 04:23 Total Counted 100 08/29/22 06:05 Band Neuts % (Manual) 0 % (0-10) 08/29/22 06:05 Reactive Lymphs % (Man) 2 % 08/21/22 07:41 Abnorm Lymph % (Manual) 0 % 08/29/22 06:05 Metamyelocytes % 1 % (-0) H 08/26/22 08:09 Nucleated RBC % 0.0 /100WBC 09/02/22 04:23 Neutrophils # (Manual) 20.4 10^3/uL (1.5-6.6) H 08/29/22 06:05 Lymphocytes # (Manual) 1.9 10^3/uL (1.5-3.5) 08/29/22 06:05 Monocytes # (Manual) 1.2 10^3/uL (0.0-1.0) H 08/29/22 06:05 Eosinophils # (Manual) 0.2 10^3/uL (0-0.7) 08/29/22 06:05 Basophils # (Manual) 0.0 10^3/uL (0-0.1) 08/29/22 06:05 Differential Comment MANUAL DIFFERENTIAL 08/29/22 06:05 Manual Slide Review Indicated 08/28/22 07:45 WBC Morphology NORMAL APPEARANCE (NORMAL) 08/29/22 06:05 Platelet Estimate NORMAL (130-450,000) (NORMAL) 08/29/22 06:05 Platelet Morphology NORMAL APPEARANCE (NORMAL) 08/29/22 06:05 RBC Morph Micro Appear 1+ ANISOCYTOSIS (NORMAL) 08/29/22 06:05 Bld Gas Analysis Time 0933 08/29/22 09:25 Sample Site RIGHT RADIAL 08/29/22 09:25 ABG pH 7.40 (7.35-7.45) 08/29/22 09:25 ABG pCO2 64 mmHg (34-45) H* 08/29/22 09:25 ABG pO2 67 mmHg (80-100) L 08/29/22 09:25 ABG HCO3 39.0 mmol/L (22.0-26.0) H 08/29/22 09:25 ABG Total CO2 41.0 MMOL/L (21.0-29.0) H* 08/29/22 09:25 ABG O2 Saturation 94 % (94-98) 08/29/22 09:25 ABG Base Excess 11.8 mmol/L (-2.0-3.0) H 08/29/22 09:25 Migue Test POSITIVE 08/29/22 09:25 VBG pH 7.453 (7.31-7.41) H 08/30/22 05:15 Ionized Calcium 1.02 mmol/L (1.15-1.33) L 08/30/22 05:15 O2 Delivery Device OXYMASK 08/29/22 09:25 O2 Liters/Min 2.00 LPM 08/29/22 09:25 FiO2 44.00 08/17/22 05:40 Sodium 144 mmol/L (135-145) 09/02/22 04:23 Potassium 3.6 mmol/L (3.5-5.0) 09/02/22 04:23 Chloride 100 mmol/L (101-111) L 09/02/22 04:23 Carbon Dioxide 41 mmol/L (21-32) H* 09/02/22 04:23 Anion Gap 3.0 (6-13) L 09/02/22 04:23 BUN 7 mg/dL (6-20) 09/02/22 04:23 Creatinine 0.4 mg/dL (0.4-1.0) 09/02/22 04:23 Estimated GFR (MDRD) 153 (>89) 09/02/22 04:23 Glucose 108 mg/dL (70-100) H 09/02/22 04:23 Calcium 7.7 mg/dL (8.5-10.3) L 09/02/22 04:23 Ionized Calcium YES 08/30/22 05:15 Phosphorus 2.6 mg/dL (2.5-4.6) 09/02/22 04:23 Magnesium 2.1 mg/dL (1.7-2.8) 09/02/22 04:23 Total Bilirubin 0.5 mg/dL (0.2-1.0) 08/25/22 07:15 AST 22 IU/L (10-42) 08/25/22 07:15 ALT 39 IU/L (10-60) 08/25/22 07:15 Alkaline Phosphatase 82 IU/L (42-121) 08/25/22 07:15 Total Creatine Kinase 16 IU/L (22-269) L 08/13/22 16:15 Troponin I High Sens 9.8 ng/L (2.3-14.8) 08/19/22 17:49 B-Natriuretic Peptide 246 pg/mL (5-100) H 08/18/22 08:05 Total Protein 5.5 g/dL (6.7-8.2) L 08/25/22 07:15 Albumin 2.1 g/dL (3.2-5.5) L 08/25/22 07:15 Globulin 3.4 g/dL (2.1-4.2) 08/25/22 07:15 Albumin/Globulin Ratio 0.6 (1.0-2.2) L 08/25/22 07:15 Triglycerides 68 mg/dL (-149) 08/14/22 05:04 Cholesterol 60 mg/dL (-199) 08/14/22 05:04 LDL Cholesterol, Calc 28 mg/dL (-129) 08/14/22 05:04 VLDL Cholesterol 14 mg/dL 08/14/22 05:04 HDL Cholesterol 18 mg/dL (60-) L 08/14/22 05:04 LDL/HDL Ratio 1.6 (<4.4) 08/14/22 05:04 Cholesterol/HDL Ratio 3.3 (<4.4) 08/14/22 05:04 Urine Color YELLOW 08/29/22 03:30 Urine Clarity CLEAR (CLEAR) 08/29/22 03:30 Urine pH 6.5 PH (5.0-7.5) 08/29/22 03:30 Ur Specific [place] 1.010 (1.002-1.030) 08/29/22 03:30 Urine Protein 30 mg/dL (NEGATIVE) H 08/29/22 03:30 Urine Glucose (UA) NEGATIVE mg/dL (NEGATIVE) 08/29/22 03:30 Urine Ketones NEGATIVE mg/dL (NEGATIVE) 08/29/22 03:30 Urine Occult Blood NEGATIVE (NEGATIVE) 08/29/22 03:30 Urine Nitrite NEGATIVE (NEGATIVE) 08/29/22 03:30 Urine Bilirubin NEGATIVE (NEGATIVE) 08/29/22 03:30 Urine Urobilinogen 0.2 (NORMAL) E.U./dL (NORMAL) 08/29/22 03:30 Ur Leukocyte Esterase NEGATIVE (NEGATIVE) 08/29/22 03:30 Urine RBC 0-5 /HPF (0-5) 08/29/22 03:30 Urine WBC 0-3 /HPF (0-5) 08/29/22 03:30 Urine WBC Clumps Cancelled 08/19/22 10:40 Ur Epithelial Cells Cancelled 08/19/22 10:40 Ur Squamous Epith Cells NONE SEEN (<= Few) 08/29/22 03:30 Urine Crystals Cancelled 08/19/22 10:40 Amorphous Sediment Cancelled 08/19/22 10:40 Urine Bacteria Rare /HPF (None Seen) 08/29/22 03:30 Urine Casts Cancelled 08/19/22 10:40 Urine Starch Cancelled 08/19/22 10:40 Urine Mucus Cancelled 08/19/22 10:40 Urine Trichomonas Cancelled 08/19/22 10:40 Urine Yeast Cancelled 08/19/22 10:40 Urine Sperm Cancelled 08/19/22 10:40 Ur Oval Fat Bodies Cancelled 08/19/22 10:40 Ur Microscopic Review NOT INDICATED 08/13/22 17:52 Urine Culture Comments NOT INDICATED 08/29/22 03:30 Nasal Screen MRSA (PCR) NEGATIVE (NEGATIVE) 08/19/22 16:35 Last Dose Date UNK 09/02/22 12:15 Last Dose Time UNK 09/02/22 12:15 Vancomycin Peak 36.3 ug/mL (20.0-40.0) 08/20/22 14:16 Vancomycin Trough 12.9 ug/mL (10.0-20.0) 09/02/22 12:15 SARS-CoV-2 (PCR) NOT DETECTED 08/18/22 08:43 - Procedures Procedures: Procedures EXCISION OF CECUM, ENDO (03/24/19) EXCISION OF SIGMOID COLON, ENDO (03/24/19) EXCISION OF TRANSVERSE COLON, ENDO (03/24/19)
[2022-09-02] MEDS: MONTELUKAST 10 MG TABLET PO SCH (20:00)
[2022-09-02] MEDS: MIRTAZAPINE 15 MG TABLET PO SCH (20:00)
[2022-09-03] MEDS: SODIUM CHLORIDE FLUSH 0.9% 10 ML SYRINGE IVP SCH ×3 (00:02→17:22)
[2022-09-03] MEDS: metroNIDAZOLE 500 MG/100 ML 500 MG/100 ML BAG IV SCH ×3 (03:07→18:26)
[2022-09-03] MEDS: LEVALBUTEROL 1.25 MG/3 ML NEB INH SCH ×4 (07:17→18:54)
[2022-09-03] MEDS: METOPROLOL TARTRATE 25 MG TABLET PO SCH ×2 (08:25→20:25)
[2022-09-03] MEDS: ENOXAPARIN 40 MG/0.4 ML SYRINGE SUBQ SCH (08:25)
[2022-09-03] MEDS: FLUCONAZOLE 200 MG/100 ML 100 ML IV SCH (08:25)
[2022-09-03] MEDS: SACCHAROMYCES BOULARDII 250 MG CAPSULE PO SCH ×2 (08:25→17:22)
[2022-09-03] MEDS: guaiFENesin 600 MG TABLET PO SCH ×2 (08:26→20:26)
[2022-09-03] MEDS: TAMSULOSIN 0.4 MG CAPSULE PO SCH (08:26)
[2022-09-03] MEDS: OMEGA-3 ACID ETHYL ESTERS 1 GM CAPSULE PO SCH ×2 (08:26→17:22)
[2022-09-03] MEDS: FAMOTIDINE 20 MG TABLET PO SCH ×2 (08:26→20:27)
[2022-09-03] MEDS: MULTIVITAMIN W/MINERALS TABLET PO SCH (08:26)
[2022-09-03] MEDS: ASPIRIN CHEW 81 MG TABLET PO SCH (08:26)
--- NOTE | 2022-09-03 11:13 | PROVIDER PROGRESS NOTE ---
Assessment/Plan - Problem List (1) Generalized weakness Assessment/Plan: The brain MRI showed only diffuse changes of atrophy, no evidence of old stroke or recent stroke. The patient does carry a diagnosis of polio, which may have given L>R leg weakness. Of this hospitalization until yesterday 09/02/2022 she was sleeping during the day, and too tired to participate with rehab. Yesterday was the first day she had good strength to work with PT and was awake, ate 75% of her meals well. Today 09/03, I updated her son Sin by phone. Plan: Patient herself wants to go home and get home health PT, and not go to a SNF. I told Sin today that caregivers need to be arranged for her at home. A Palliative care consult was requested on 09/01, to assist in making decisions about her care, since she only intermittently ate and drank, and cooperated minimally with PT and OT, but mostly slept all day. I spoke to Laverne Bhatt NP. Since 09/02, the patient has more energy and is cooperative, eating, so this palliative care consult may not be necessary (2) Acute and chronic respiratory failure with hypoxia Assessment/Plan: Patient was on home O2 and then became more hypoxic when work-up showed a new pneumonia found on CXR on her 3rd day here, and antibx were started after cx obtained. She was in new atrial flutter with RVR then too. Since that time, the latest chest x-rays have shown a cavity in the lungs and her iv antibiotic were adjusted again. She seems to be responding, since she has more strength the last 2 days. Plan: Continue supplemental O2, target saturation is > 88% (3) Cavitary lesion of lung Assessment/Plan: Her CXR on 08/17 showed a new RUL pneumonia. We obtained blood cx and sputum cx, We had her on antibx to cover a Healthcare-associated pneumonia: using IV vancomycin, and IV Cefepime. August 22, 2022-sputum culture grew E. coli so we DC'd vancomycin and kept her cefepime and added Flagyl for possibility of aspiration pneumonia August 23, 2022-sputum culture then grew MRSA so we added back IV vancomycin August 24, 2022 per pharmacy recommendations switching from cefepime to Rocephin which sensitivities of the culture show that is appropriate for the E. coli and will continue with IV vancomycin continue with IV Flagyl which was added for possibility of aspiration pneumonia also August 25, 2022-patient seemed more alert & responsive and we continued that antibiotic combination regimen for at least a total of 7 days, since her sputum grew E. coli and MRSA August 28, 2022-patient had increasing leukocytosis up to 33,000. Chest x-ray showed a cavitary lesion in the right upper lung zone; differential included necrotizing pneumonia/aspiration pneumonia versus mass. A chest CT scan was done 08/28 and was read as having a cavitary lesion enlarging during her time here, which could be PNA from fungus vs bacteria Plan: Continue with iv Vanco, iv Fluconazole, and iv Flagyl Cont probiotic (4) Fall at home Impression: At admission, patient had a very bruised and mildly swollen left upper eyelid. That was the fall from several days previously. Then she rolled out of bed 2 days later, landing on her left side she thinks. She complained of L sided pain s/p GLF and neck pain s/p GLF, in the ED. There is a H/o recent L hip fracture s/p ORIF. Her CSpine CT showed : DJD C1-C2, C5-C6, C6-C7 She had orthostatic vital signs at admission. Her gabapentin dose was started at 100 mg TID not 300 mg TID. later adjusted to BID. She has received up-and-down IV fluids this hospitalization. Plan: PT and OT rehab need to continue (5) Severe protein calorie malnutrition The patient's BMI is only 17. She is cachectic, had temporal wasting and sunken eyes and diffuse muscle wasting and loss of subcutaneous fat. She screened for excessive weight loss, done by our [employer] [facility]: Has had nutritional intake of less than 50% for 2 weeks or more, and has lost 12% of her weight in 6 months. Her labs showed a LDL of 48 and an HDL of 18, and she was on a statin at home. Statin was stopped. I started her on omega-3 tablet daily to increase her HDL I ordered a liberalized diet with [employer] to take her meal choices. We learned she is always a picky eater, mostly eats cottage cheese and canned peach. Over the last 2 days she has had better appetite, yesterday ate 75% (was charted). Plan: Cont Remeron, started to stimulate appetite. (6) UTI Assessment/Plan: She had urinary retention earlier and needed straight cath. On 08/19 a Paz catheter was inserted due to high volume on bladder scan. During that insertion she had white purulent urine drained. A urinalysis was sent off and this had many WBCs and many bacteria. That urine culture is growing nothing (probably because she had a partially treated UTI, from already being on cefepime for her pneumonia) Plan: She has been on iv antibx for the HCAP, then for the cavitary lung infection Yesterday and today the RN reports she has 4 pustules on her labia majora. I ordered a shower. She finally agreed to a shower. (7) Acute urinary retention Assessment/Plan: She had urinary retention earlier and needed straight cath. On 08/19 a Paz catheter was inserted due to high volume on bladder scan. Plan: I will order bladder training by clamping Paz for 2 hours every 4 hours and possibly discontinue the Paz tomorrow (8) COPD with hypoxia Assessment/Plan: The HCAP pneumoniacaused her to wheeze. She was only clearing her throat, she seemed to be too weak to cough up phlegm I started Xopenex, Montelukast and added Solu-Medrol. On 08/25, patient's Solu- Medrol was DC'd Plan: Continue as needed meds and suppl O2 (9) Paroxysmal Atrial flutter Assessment/Plan: The patient had A-fibflutter with RVR on 08/17, when she was at her worst resp distress. Then she had Paroxysms of atrial flutter with 2-1 and 3-1 block for several days. Troponins went from 7 to 20, likely rate-related demand ischemia. Her BNP was mildly elevated 208>> 246 She had an Echocardiogram done here on 08/15, which showed normal LV size and function and normal RV size and function When we saw junctional heather rhythm, Cardizem CD dose was adjusted Her [id number] score is 1, so Aspirin daily, not anticoagulant is indicated, and she is on ASA daily I suspect this patient may have tachybradycardia syndrome. (10) Junctional bradycardia Assessment/Plan: On 08/19 the patient went into recurrent, brief episodes of junctional bradycardia with ventr rates of 10-30. She was transferred to the ICU. I put her on an Aminophylline continuous IV drip, to give her the desired side effect of a higher heart rate, for 24 hours. Her labs were checked when she was transferred to the ICU. Her potassium was 5.5 which may have been the cause of the junctional bradycardia. The troponins were checked and EKG was done and these did not reveal an acute GA. Her Echo had been done earlier this admission which showed normal chamber sizes and normal LV and RV contractility. I suspect this patient may have tachybradycardia syndrome. (11) Sinus pause Several days ago, the patient had a 4.8-second pause, came out of A-fib then, and went into sinus rhythm I decreased the metoprolol I suspect this patient has tachy-bradycardia syndrome. She would be a candidtae for placing a pacemaker and EP/cardiology consultation - Current Meds Current Meds: Current Medications Generic Name Dose Route Start Last Admin Trade Name Freq PRN Reason Stop Dose Admin Aspirin 81 mg 08/14/22 09:00 09/03/22 08:26 Aspirin Chew 81 Mg Tablet PO 81 mg DAILY HENOK Administration Enoxaparin Sodium 40 mg 08/14/22 09:00 09/03/22 08:25 Enoxaparin 40 Mg/0.4 Ml Syringe SUBQ 40 mg DAILY HENOK Administration Famotidine 20 mg 08/25/22 21:00 09/03/22 08:26 Famotidine 20 Mg Tablet PO 20 mg BID HENOK Administration Gabapentin 100 mg 08/21/22 13:00 09/02/22 20:01 Gabapentin 100 Mg Capsule PO 100 mg 1300,2000 HENOK Administration Guaifenesin 600 mg 08/17/22 10:00 09/03/22 08:26 Guaifenesin 600 Mg Tablet PO 600 mg BID HENOK Administration Fluconazole 100 mls @ 100 mls/hr 08/31/22 09:00 09/03/22 09:50 Diflucan 200 Mg/100 Ml IV Infused DAILY HENOK Infusion Metronidazole 500 mg in 100 mls @ 100 mls/hr 09/01/22 11:00 09/03/22 04:19 Flagyl 500 Mg/100 Ml IV Infused Q8H HENOK Infusion Vancomycin HCl 1.25 gm/ Sodium 250 mls @ 167 mls/hr 09/02/22 15:00 09/02/22 18:18 Chloride IV Infused Q24H HENOK Infusion Levalbuterol HCl 1.25 mg 08/17/22 14:59 09/03/22 07:17 Levalbuterol 1.25 Mg/3 Ml Neb INH 1.25 mg RTQID HENOK Administration Metoprolol Tartrate 12.5 mg 08/30/22 21:00 09/03/22 08:25 Metoprolol Tartrate 25 Mg Tablet PO 12.5 mg BID HENOK Administration Mirtazapine 15 mg 08/21/22 21:00 09/02/22 20:00 Mirtazapine 15 Mg Tablet PO 15 mg QPM HENOK Administration Montelukast Sodium 10 mg 08/19/22 21:00 09/02/22 20:00 Montelukast 10 Mg Tablet PO 10 mg QPM HENOK Administration Morphine Sulfate 2 mg 08/19/22 09:12 08/22/22 12:15 Morphine 2 Mg/Ml Carpuject IVP 2 mg Q4HR PRN Administration Dyspnea Multi-Ingredient Ointment 1 applic 08/26/22 18:33 09/02/22 09:04 Zinc Oxide 20% Oint 30 Gm Tube TOP 1 applic PRN PRN Administration Skin Care Multivitamins/Minerals 1 tab 08/15/22 17:00 09/03/22 08:26 Multivitamin W/Minerals Tablet PO 1 tab DAILYWM HENOK Administration Sqetm-3-Uigy Ethyl Esters 1 gm 08/20/22 17:00 09/03/22 08:[address] [place]-3 Acid Ethyl Esters 1 Gm Capsule PO 1 gm BIDWM HENOK Administration Saccharomyces Boulardii 250 mg 08/17/22 17:00 09/03/22 08:25 Saccharomyces Boulardii 250 Mg Capsule PO 250 mg BIDWM HENOK Administration Sodium Chloride 10 ml 08/13/22 19:43 09/01/22 12:24 Sodium Chloride Flush 0.9% 10 Ml Syringe IVP 10 ml PRN PRN Administration NEEDED PER PROVIDER ORDERS Sodium Chloride 10 ml 08/14/22 01:00 09/03/22 08:26 Sodium Chloride Flush 0.9% 10 Ml Syringe IVP 10 ml 0100,0900,1700 HENOK Administration Tamsulosin HCl 0.4 mg 08/15/22 09:00 09/03/22 08:26 Tamsulosin 0.4 Mg Capsule PO 0.4 mg DAILY HENOK Administration - Lab Result Fish Bone Diagrams: 09/02/22 04:23 09/02/22 04:23 - Additional Planning My Orders: My Active Orders 09/02/22 15:00 Vancomycin Inj [Vancomycin] 1.25 gm Sodium Chloride 0.9% [Normal Saline 0.9%] 250 ml IV Q24H Subjective - Subjective Patient Reports: Feeling Better (Feels much sytonger for 2 days) Objective Vital Signs: Vital Signs - 24 hr 09/02/22 09/02/22 09/02/22 12:00 12:53 15:35 Temperature 36.3 C L 36.6 C Heart Rate 68 Heart Rate [ 79 70 Brachial] Respiratory 17 18 16 Rate Blood Pressure Blood Pressure 98/61 135/54 H [Right Brachial artery] O2 Saturation 92 91 L If not protocol 2 3 3 : Oxygen Flow, liters/minute 09/02/22 09/02/22 09/02/22 16:37 17:08 19:00 Temperature Heart Rate 79 80 Heart Rate [ Brachial] Respiratory 17 16 Rate Blood Pressure Blood Pressure [Right Brachial artery] O2 Saturation 93 If not protocol 2 2 2 : Oxygen Flow, liters/minute 09/02/22 09/03/22 09/03/22 20:02 00:00 05:00 Temperature 36.7 C 36.8 C 36.6 C Heart Rate Heart Rate [ 80 68 64 Brachial] Respiratory 16 16 16 Rate Blood Pressure Blood Pressure 126/46 L 125/55 L 143/61 H [Right Brachial artery] O2 Saturation 93 98 96 If not protocol 2 2 2 : Oxygen Flow, liters/minute 09/03/22 09/03/22 09/03/22 07:18 07:36 08:25 Temperature 36.7 C Heart Rate 80 Heart Rate [ 71 Brachial] Respiratory 18 16 Rate Blood Pressure 147/58 H Blood Pressure 147/58 H [Right Brachial artery] O2 Saturation 95 If not protocol 2 2 : Oxygen Flow, liters/minute Oxygen O2 Source Nasal cannula I&O (Last 24 Hrs): Intake and Output Totals x24h 09/01/22 09/02/22 09/03/22 23:59 23:59 23:59 Intake Total 1050 1530 200 Output Total 1750 2250 600 Balance -700 -720 -400 General: Alert, Oriented x3 HEENT: Mucous membr. moist/pink, Other (wearing O2 per n.c.) Neck: Supple Neuro: Alert, Non Focal Cardiovascular: Regular rate Respiratory: No respiratory distress, Breath sounds nml Abdomen: Soft Rectal: Other (Per RN she has 4 pustules on her labia) Extremities: No clubbing, No edema - Results Results: Laboratory Results WBC 12.7 x10^3/uL (4.8-10.8) H 09/02/22 04:23 RBC 3.41 10^6/uL (4.20-5.40) L 09/02/22 04:23 Hgb 9.3 g/dL (12.0-16.0) L 09/02/22 04:23 Hct 32.5 % (37.0-47.0) L 09/02/22 04:23 MCV 95.3 fL (81.0-99.0) 09/02/22 04:23 MCH 27.3 pg (27.0-31.0) 09/02/22 04:23 MCHC 28.6 g/dL (32.0-36.0) L 09/02/22 04:23 RDW 14.1 % (12.0-15.0) 09/02/22 04:23 Plt Count 271 10^3/uL (130-450) 09/02/22 04:23 MPV 9.4 fL (7.9-10.8) 09/02/22 04:23 Neut # (Auto) 10.2 10^3/uL (1.5-6.6) H 09/02/22 04:23 Lymph # (Auto) 1.6 10^3/uL (1.5-3.5) 09/02/22 04:23 [place] # (Auto) 0.6 10^3/uL (0.0-1.0) 09/02/22 04:23 Eos # (Auto) 0.1 10^3/uL (0.0-0.7) 09/02/22 04:23 Baso # (Auto) 0.1 10^3/uL (0.0-0.1) 09/02/22 04:23 Absolute Nucleated RBC 0.00 x10^3/uL 09/02/22 04:23 Total Counted 100 08/29/22 06:05 Band Neuts % (Manual) 0 % (0-10) 08/29/22 06:05 Reactive Lymphs % (Man) 2 % 08/21/22 07:41 Abnorm Lymph % (Manual) 0 % 08/29/22 06:05 Metamyelocytes % 1 % (-0) H 08/26/22 08:09 Nucleated RBC % 0.0 /100WBC 09/02/22 04:23 Neutrophils # (Manual) 20.4 10^3/uL (1.5-6.6) H 08/29/22 06:05 Lymphocytes # (Manual) 1.9 10^3/uL (1.5-3.5) 08/29/22 06:05 Monocytes # (Manual) 1.2 10^3/uL (0.0-1.0) H 08/29/22 06:05 Eosinophils # (Manual) 0.2 10^3/uL (0-0.7) 08/29/22 06:05 Basophils # (Manual) 0.0 10^3/uL (0-0.1) 08/29/22 06:05 Differential Comment MANUAL DIFFERENTIAL 08/29/22 06:05 Manual Slide Review Indicated 08/28/22 07:45 WBC Morphology NORMAL APPEARANCE (NORMAL) 08/29/22 06:05 Platelet Estimate NORMAL (130-450,000) (NORMAL) 08/29/22 06:05 Platelet Morphology NORMAL APPEARANCE (NORMAL) 08/29/22 06:05 RBC Morph Micro Appear 1+ ANISOCYTOSIS (NORMAL) 08/29/22 06:05 Bld Gas Analysis Time 0933 08/29/22 09:25 Sample Site RIGHT RADIAL 08/29/22 09:25 ABG pH 7.40 (7.35-7.45) 08/29/22 09:25 ABG pCO2 64 mmHg (34-45) H* 08/29/22 09:25 ABG pO2 67 mmHg (80-100) L 08/29/22 09:25 ABG HCO3 39.0 mmol/L (22.0-26.0) H 08/29/22 09:25 ABG Total CO2 41.0 MMOL/L (21.0-29.0) H* 08/29/22 09:25 ABG O2 Saturation 94 % (94-98) 08/29/22 09:25 ABG Base Excess 11.8 mmol/L (-2.0-3.0) H 08/29/22 09:25 Migue Test POSITIVE 08/29/22 09:25 VBG pH 7.453 (7.31-7.41) H 08/30/22 05:15 Ionized Calcium 1.02 mmol/L (1.15-1.33) L 08/30/22 05:15 O2 Delivery Device OXYMASK 08/29/22 09:25 O2 Liters/Min 2.00 LPM 08/29/22 09:25 FiO2 44.00 08/17/22 05:40 Sodium 144 mmol/L (135-145) 09/02/22 04:23 Potassium 3.6 mmol/L (3.5-5.0) 09/02/22 04:23 Chloride 100 mmol/L (101-111) L 09/02/22 04:23 Carbon Dioxide 41 mmol/L (21-32) H* 09/02/22 04:23 Anion Gap 3.0 (6-13) L 09/02/22 04:23 BUN 7 mg/dL (6-20) 09/02/22 04:23 Creatinine 0.4 mg/dL (0.4-1.0) 09/02/22 04:23 Estimated GFR (MDRD) 153 (>89) 09/02/22 04:23 Glucose 108 mg/dL (70-100) H 09/02/22 04:23 Calcium 7.7 mg/dL (8.5-10.3) L 09/02/22 04:23 Ionized Calcium YES 08/30/22 05:15 Phosphorus 2.6 mg/dL (2.5-4.6) 09/02/22 04:23 Magnesium 2.1 mg/dL (1.7-2.8) 09/02/22 04:23 Total Bilirubin 0.5 mg/dL (0.2-1.0) 08/25/22 07:15 AST 22 IU/L (10-42) 08/25/22 07:15 ALT 39 IU/L (10-60) 08/25/22 07:15 Alkaline Phosphatase 82 IU/L (42-121) 08/25/22 07:15 Total Creatine Kinase 16 IU/L (22-269) L 08/13/22 16:15 Troponin I High Sens 9.8 ng/L (2.3-14.8) 08/19/22 17:49 B-Natriuretic Peptide 246 pg/mL (5-100) H 08/18/22 08:05 Total Protein 5.5 g/dL (6.7-8.2) L 08/25/22 07:15 Albumin 2.1 g/dL (3.2-5.5) L 08/25/22 07:15 Globulin 3.4 g/dL (2.1-4.2) 08/25/22 07:15 Albumin/Globulin Ratio 0.6 (1.0-2.2) L 08/25/22 07:15 Triglycerides 68 mg/dL (-149) 08/14/22 05:04 Cholesterol 60 mg/dL (-199) 08/14/22 05:04 LDL Cholesterol, Calc 28 mg/dL (-129) 08/14/22 05:04 VLDL Cholesterol 14 mg/dL 08/14/22 05:04 HDL Cholesterol 18 mg/dL (60-) L 08/14/22 05:04 LDL/HDL Ratio 1.6 (<4.4) 08/14/22 05:04 Cholesterol/HDL Ratio 3.3 (<4.4) 08/14/22 05:04 Urine Color YELLOW 08/29/22 03:30 Urine Clarity CLEAR (CLEAR) 08/29/22 03:30 Urine pH 6.5 PH (5.0-7.5) 08/29/22 03:30 Ur Specific [place] 1.010 (1.002-1.030) 08/29/22 03:30 Urine Protein 30 mg/dL (NEGATIVE) H 08/29/22 03:30 Urine Glucose (UA) NEGATIVE mg/dL (NEGATIVE) 08/29/22 03:30 Urine Ketones NEGATIVE mg/dL (NEGATIVE) 08/29/22 03:30 Urine Occult Blood NEGATIVE (NEGATIVE) 08/29/22 03:30 Urine Nitrite NEGATIVE (NEGATIVE) 08/29/22 03:30 Urine Bilirubin NEGATIVE (NEGATIVE) 08/29/22 03:30 Urine Urobilinogen 0.2 (NORMAL) E.U./dL (NORMAL) 08/29/22 03:30 Ur Leukocyte Esterase NEGATIVE (NEGATIVE) 08/29/22 03:30 Urine RBC 0-5 /HPF (0-5) 08/29/22 03:30 Urine WBC 0-3 /HPF (0-5) 08/29/22 03:30 Urine WBC Clumps Cancelled 08/19/22 10:40 Ur Epithelial Cells Cancelled 08/19/22 10:40 Ur Squamous Epith Cells NONE SEEN (<= Few) 08/29/22 03:30 Urine Crystals Cancelled 08/19/22 10:40 Amorphous Sediment Cancelled 08/19/22 10:40 Urine Bacteria Rare /HPF (None Seen) 08/29/22 03:30 Urine Casts Cancelled 08/19/22 10:40 Urine Starch Cancelled 08/19/22 10:40 Urine Mucus Cancelled 08/19/22 10:40 Urine Trichomonas Cancelled 08/19/22 10:40 Urine Yeast Cancelled 08/19/22 10:40 Urine Sperm Cancelled 08/19/22 10:40 Ur Oval Fat Bodies Cancelled 08/19/22 10:40 Ur Microscopic Review NOT INDICATED 08/13/22 17:52 Urine Culture Comments NOT INDICATED 08/29/22 03:30 Nasal Screen MRSA (PCR) NEGATIVE (NEGATIVE) 08/19/22 16:35 Last Dose Date UNK 09/02/22 12:15 Last Dose Time UNK 09/02/22 12:15 Vancomycin Peak 36.3 ug/mL (20.0-40.0) 08/20/22 14:16 Vancomycin Trough 12.9 ug/mL (10.0-20.0) 09/02/22 12:15 SARS-CoV-2 (PCR) NOT DETECTED 08/18/22 08:43 - Procedures Procedures: Procedures EXCISION OF CECUM, ENDO (03/24/19) EXCISION OF SIGMOID COLON, ENDO (03/24/19) EXCISION OF TRANSVERSE COLON, ENDO (03/24/19)
[2022-09-03] MEDS: GABAPENTIN 100 MG CAPSULE PO SCH ×2 (14:03→20:26)
[2022-09-03] MEDS: SODIUM CHLORIDE FLUSH 0.9% 10 ML SYRINGE IVP PRN ×3 (17:22→20:25)
[2022-09-03] MEDS: VANCOMYCIN INJ 1.25 GM in SODIUM CHLORIDE 0.9% 250 ML IV SCH (18:29)
[2022-09-03] MEDS: ZINC OXIDE 20% OINT 30 GM TUBE TOP PRN (20:25)
[2022-09-03] MEDS: MONTELUKAST 10 MG TABLET PO SCH (20:26)
[2022-09-03] MEDS: MIRTAZAPINE 15 MG TABLET PO SCH (20:27)
[2022-09-04] MEDS: SODIUM CHLORIDE FLUSH 0.9% 10 ML SYRINGE IVP SCH ×3 (02:39→17:59)
[2022-09-04] MEDS: metroNIDAZOLE 500 MG/100 ML 500 MG/100 ML BAG IV SCH ×3 (02:39→18:35)
[2022-09-04] MEDS: LEVALBUTEROL 1.25 MG/3 ML NEB INH SCH ×4 (07:12→19:12)
[2022-09-04] MEDS: FLUCONAZOLE 200 MG/100 ML 100 ML IV SCH (08:29)
[2022-09-04] MEDS: ENOXAPARIN 40 MG/0.4 ML SYRINGE SUBQ SCH (08:43)
[2022-09-04] MEDS: ASPIRIN CHEW 81 MG TABLET PO SCH (08:44)
[2022-09-04] MEDS: MULTIVITAMIN W/MINERALS TABLET PO SCH (08:44)
[2022-09-04] MEDS: SACCHAROMYCES BOULARDII 250 MG CAPSULE PO SCH ×2 (08:45→17:59)
[2022-09-04] MEDS: guaiFENesin 600 MG TABLET PO SCH ×2 (08:45→20:47)
[2022-09-04] MEDS: TAMSULOSIN 0.4 MG CAPSULE PO SCH (08:45)
[2022-09-04] MEDS: OMEGA-3 ACID ETHYL ESTERS 1 GM CAPSULE PO SCH ×2 (08:45→17:59)
[2022-09-04] MEDS: METOPROLOL TARTRATE 25 MG TABLET PO SCH ×2 (08:45→20:48)
[2022-09-04] MEDS: FAMOTIDINE 20 MG TABLET PO SCH ×2 (08:45→20:47)
[2022-09-04 09:07] LABS: BASOPHILS # (AUTO) 0.1 10^3/uL (0.0-0.1); BASOPHILS % (AUTO) 0.7 %; EOSINOPHILS # (AUTO) 0.2 10^3/uL (0.0-0.7); EOSINOPHILS % (AUTO) 1.5 %; HCT - HEMATOCRIT 32.7 % (37.0-47.0); HGB - HEMOGLOBIN 9.8 g/dL (12.0-16.0); LYMPHOCYTES # (AUTO) 1.3 10^3/uL (1.5-3.5); LYMPHOCYTES % (AUTO) 13.6 %; MEAN CORPUSCULAR HEMOGLOBIN 27.8 pg (27.0-31.0); MEAN CORPUSCULAR VOLUME 92.9 fL (81.0-99.0); MEAN PLATELET VOLUME 9.5 fL (7.9-10.8); MONOCYTES # (AUTO) 0.3 10^3/uL (0.0-1.0); MONOCYTES % (AUTO) 3.4 %; NEUTROPHILS # (AUTO) 7.8 10^3/uL (1.5-6.6); NEUTROPHILS % (AUTO) 80.3 %; PLT - PLATELET COUNT 275 10^3/uL (130-450); RED BLOOD COUNT 3.52 10^6/uL (4.20-5.40); RED CELL DISTRIBUTION WIDTH 14.4 % (12.0-15.0); WHITE BLOOD COUNT 9.7 x10^3/uL (4.8-10.8)
[2022-09-04 09:20] LABS: CALCIUM 7.7 mg/dL (8.5-10.3); CREATININE 0.5 mg/dL (0.4-1.0); POTASSIUM 3.3 mmol/L (3.5-5.0)
--- NOTE | 2022-09-04 11:03 | PROVIDER PROGRESS NOTE ---
Assessment/Plan - Problem List (1) Generalized weakness Assessment/Plan: The brain MRI showed only diffuse changes of atrophy, no evidence of old stroke or recent stroke. The patient does carry a diagnosis of polio, which may have given L>R leg weakness, noticed at admission. But her obtundation was probably from dehydration, initially. Then most of this hospitalization, until Sunday09/02/2022, she was sleeping most of the day, and was intermittently too tired to participate with rehab, and would eat only bites with all her meals. She has cognitive capacity and I discussed her Code status on 08/30, and she was made a DNR and a POLST form was completed and scanned into her EMR. Sat & Sun (yesterday and the day before) she had good strength to work with PT, was awake, ate 75% of her meals well, was engaged. Yesterday she had a shower, which she has not had in over a year. Today she is again lethargic. Plan: Cont nutrtion support and PT and OT rehab Patient herself wants to go home and get home health PT, and not go to a SNF. I told the son Sin on 09/03 that caregivers need to be arranged for her at home. A Palliative care consult was requested on 09/01, to assist in making decisions about her care, since she was only intermittently ate and drank, and cooperated minimally with PT and OT, but mostly slept all day. I spoke to Laverne Bhatt NP today. (2) Acute and chronic respiratory failure with hypoxia Assessment/Plan: Patient was on home O2 and then became more hypoxic when work-up showed a new pneumonia found on CXR on her 3rd day here, and antibx were started after cx obtained. She was in new atrial flutter with RVR then too. Since that time, the latest chest x-rays have shown a cavity in the lungs and her iv antibiotic were adjusted again. She seems to be responding, since she has more strength the last 2 days. Plan: Continue supplemental O2, target saturation is > 88% (3) Cavitary lesion of lung Assessment/Plan: Her CXR on 08/17 showed a new RUL pneumonia. We obtained blood cx and sputum cx, We had her on antibx to cover a Healthcare-associated pneumonia: using IV vancomycin, and IV Cefepime. August 22, 2022-sputum culture grew E. coli so we DC'd vancomycin and kept her cefepime and added Flagyl for possibility of aspiration pneumonia August 23, 2022-sputum culture then grew MRSA so we added back IV vancomycin August 24, 2022 per pharmacy recommendations switching from cefepime to Rocephin which sensitivities of the culture show that is appropriate for the E. coli and will continue with IV vancomycin continue with IV Flagyl which was added for possibility of aspiration pneumonia also August 25, 2022-patient seemed more alert & responsive and we continued that antibiotic combination regimen for at least a total of 7 days, since her sputum grew E. coli and MRSA August 28, 2022-patient had increasing leukocytosis up to 33,000. Chest x-ray showed a cavitary lesion in the right upper lung zone; differential included necrotizing pneumonia/aspiration pneumonia versus mass. A chest CT scan was done 08/28 and was read as having a cavitary lesion enlarging during her time here, which could be PNA from fungus vs bacteria Plan: Continue with iv Vanco, iv Fluconazole, and iv Flagyl Cont probiotic (4) Fall at home Impression: At admission, patient had a very bruised and mildly swollen left upper eyelid. That was the fall from several days previously. Then she rolled out of bed 2 days later, landing on her left side she thinks. She complained of L sided pain s/p GLF and neck pain s/p GLF, in the ED. There is a H/o recent L hip fracture s/p ORIF. Her CSpine CT showed : DJD C1-C2, C5-C6, C6-C7 She had orthostatic vital signs at admission. Her gabapentin dose was started at 100 mg TID not 300 mg TID. later adjusted to BID. She has received up-and-down IV fluids this hospitalization. Plan: PT and OT rehab need to continue (5) Severe protein calorie malnutrition The patient's BMI is only 17. She is cachectic, had temporal wasting and sunken eyes and diffuse muscle wasting and loss of subcutaneous fat. She screened for excessive weight loss, done by our Exterior Designer: Has had nutritional intake of less than 50% for 2 weeks or more, and has lost 12% of her weight in 6 months. Her labs showed a LDL of 48 and an HDL of 18, and she was on a statin at home. Statin was stopped. I started her on omega-3 tablet daily to increase her HDL I ordered a liberalized diet with Exterior Designer to take her meal choices. We learned she is always a picky eater, mostly eats cottage cheese and canned peach. Remeron was started several days ago. Over the last 2 days she has had better appetite, yesterday ate 75% (was charted). Palliative Care consult is pending today. Plan: Cont Remeron, started to stimulate appetite. Appreciate suggestions from Palliative franchise business consultant, and will start Decadron 2 mg po daily, to stimulate her appetite (6) UTI Assessment/Plan: She had urinary retention earlier and needed straight cath. On 08/19 a Paz catheter was inserted due to high volume on bladder scan. During that insertion she had white purulent urine drained. A urinalysis was sent off and this had many WBCs and many bacteria. That urine culture is growing nothing (probably because she had a partially treated UTI, from already being on cefepime for her pneumonia) Since 09/02 the RN reported she has 4 pustules on her labia majora. I ordered a shower. She finally agreed and had a shower 09/03. Plan: She has been on iv antibx for the HCAP, then for the cavitary lung infection Better hygiene was discussed with her (7) Acute urinary retention Assessment/Plan: She had urinary retention since admission and needed straight caths. On 08/19 a Paz catheter was inserted due to high volume on bladder scan. She has been started on Flomax Plan: I will order bladder training by clamping Paz for 2 hours every 4 hours and discontinue the Apz today. Then will recheck residuals (8) COPD with hypoxia Assessment/Plan: The HCAP pneumoniacaused her to wheeze. She was only clearing her throat, she seemed to be too weak to cough up phlegm I started Xopenex, Montelukast and added Solu-Medrol. On 08/25, patient's Solu- Medrol was DC'd Plan: Continue as needed meds and suppl O2 (9) Paroxysmal Atrial flutter Assessment/Plan: The patient had A-fibflutter with RVR on 08/17, when she was at her worst resp distress. Then she had Paroxysms of atrial flutter with 2-1 and 3-1 block for several days. Troponins went from 7 to 20, likely rate-related demand ischemia. Her BNP was mildly elevated 208>> 246 She had an Echocardiogram done here on 08/15, which showed normal LV size and function and normal RV size and function When we saw junctional heather rhythm, Cardizem CD dose was adjusted This patient likrly has tachy-bradycardia syndrome. Plan: Cont present meds (10) Junctional bradycardia Assessment/Plan: On 08/19 the patient went into recurrent, brief episodes of junctional bradycardia with ventr rates of 10-30. She was transferred to the ICU. I put her on an Aminophylline continuous IV drip, to give her the desired side effect of a higher heart rate, for 24 hours. Her labs were checked when she was transferred to the ICU. Her potassium was 5.5 which may have been the cause of the junction al bradycardia. The troponins were checked and EKG was done and these did not reveal an acute DC. Her Echo had been done earlier this admission which showed normal chamber sizes and normal LV and RV contractility. I suspect this patient may have tachybradycardia syndrome. (11) Sinus pause Several days ago, the patient had a 4.8-second pause, came out of A-fib then, and went into sinus rhythm I decreased the metoprolol I suspect this patient has tachy-bradycardia syndrome. She may be a candidtae for placing a pacemaker and EP/cardiology consultation - Current Meds Current Meds: Current Medications Generic Name Dose Route Start Last Admin Trade Name Freq PRN Reason Stop Dose Admin Aspirin 81 mg 08/14/22 09:00 09/04/22 08:44 Aspirin Chew 81 Mg Tablet PO 81 mg DAILY HENOK Administration Enoxaparin Sodium 40 mg 08/14/22 09:00 09/04/22 08:43 Enoxaparin 40 Mg/0.4 Ml Syringe SUBQ 40 mg DAILY HENOK Administration Famotidine 20 mg 08/25/22 21:00 09/04/22 08:45 Famotidine 20 Mg Tablet PO 20 mg BID HENOK Administration Gabapentin 100 mg 08/21/22 13:00 09/03/22 20:26 Gabapentin 100 Mg Capsule PO 100 mg 1300,2000 HENOK Administration Guaifenesin 600 mg 08/17/22 10:00 09/04/22 08:45 Guaifenesin 600 Mg Tablet PO 600 mg BID HENOK Administration Fluconazole 100 mls @ 100 mls/hr 08/31/22 09:00 09/04/22 09:35 Diflucan 200 Mg/100 Ml IV Infused DAILY HENOK Infusion Metronidazole 500 mg in 100 mls @ 100 mls/hr 09/01/22 11:00 09/04/22 10:20 Flagyl 500 Mg/100 Ml IV 100 mls/hr Q8H HENOK Administration Vancomycin HCl 1.25 gm/ Sodium 250 mls @ 167 mls/hr 09/02/22 15:00 09/03/22 20:16 Chloride IV Infused Q24H HENOK Infusion Levalbuterol HCl 1.25 mg 08/17/22 14:59 09/04/22 07:12 Levalbuterol 1.25 Mg/3 Ml Neb INH 1.25 mg RTQID HENOK Administration Metoprolol Tartrate 12.5 mg 08/30/22 21:00 09/04/22 08:45 Metoprolol Tartrate 25 Mg Tablet PO 12.5 mg BID HENOK Administration Mirtazapine 15 mg 08/21/22 21:00 09/03/22 20:27 Mirtazapine 15 Mg Tablet PO 15 mg QPM HENOK Administration Montelukast Sodium 10 mg 08/19/22 21:00 09/03/22 20:26 Montelukast 10 Mg Tablet PO 10 mg QPM HENOK Administration Multi-Ingredient Ointment 1 applic 08/26/22 18:33 09/03/22 20:25 Zinc Oxide 20% Oint 30 Gm Tube TOP 1 applic PRN PRN Administration Skin Care Multivitamins/Minerals 1 tab 08/15/22 17:00 09/04/22 08:44 Multivitamin W/Minerals Tablet PO 1 tab DAILYWM HENOK Administration [place]w-7-Tqcl Ethyl Esters 1 gm 08/20/22 17:00 09/04/22 08:45 [place]-3 Acid Ethyl Esters 1 Gm Capsule PO 1 gm BIDWM HENOK Administration Saccharomyces Boulardii 250 mg 08/17/22 17:00 09/04/22 08:45 Saccharomyces Boulardii 250 Mg Capsule PO 250 mg BIDWM HENOK Administration Sodium Chloride 10 ml 08/13/22 19:43 09/03/22 20:25 Sodium Chloride Flush 0.9% 10 Ml Syringe IVP 10 ml PRN PRN Administration NEEDED PER PROVIDER ORDERS Sodium Chloride 10 ml 08/14/22 01:00 09/04/22 08:30 Sodium Chloride Flush 0.9% 10 Ml Syringe IVP 10 ml 0100,0900,1700 HENOK Administration Tamsulosin HCl 0.4 mg 08/15/22 09:00 09/04/22 08:45 Tamsulosin 0.4 Mg Capsule PO 0.4 mg DAILY HENOK Administration - Lab Result Fish Bone Diagrams: 09/04/22 08:35 09/04/22 08:35 - Additional Planning My Orders: My Active Orders 09/04/22 07:37 Miscellaenous Nursing Order [RC] QSHIFT 09/04/22 16:00 Paz Discontinuation [RC] ONCE 09/05/22 05:00 BMP - BASIC METABOLIC PANEL [CHEM] DAILYLAB CBC - COMP BLD CT W/AUTO DIFF [HEME] DAILYLAB 09/05/22 14:30 VANCOMYCIN TROUGH [CHEM] Timed 09/06/22 05:00 BMP - BASIC METABOLIC PANEL [CHEM] DAILYLAB CBC - COMP BLD CT W/AUTO DIFF [HEME] DAILYLAB 09/07/22 05:00 BMP - BASIC METABOLIC PANEL [CHEM] DAILYLAB CBC - COMP BLD CT W/AUTO DIFF [HEME] DAILYLAB Subjective - Subjective Patient Reports: Resting Comfortably Objective Vital Signs: Vital Signs - 24 hr 09/03/22 09/03/22 09/03/22 11:24 13:00 15:11 Temperature 36.3 C L Heart Rate 84 88 Heart Rate [ 83 Brachial] Respiratory 18 20 18 Rate Blood Pressure Blood Pressure 134/71 H [Right Brachial artery] O2 Saturation 95 If not protocol 2 2 : Oxygen Flow, liters/minute 09/03/22 09/03/22 09/03/22 16:10 18:55 20:10 Temperature 36.6 C 36.9 C Heart Rate 76 Heart Rate [ 78 85 Brachial] Respiratory 16 18 20 Rate Blood Pressure Blood Pressure 129/51 L 133/59 H [Right Brachial artery] O2 Saturation 98 95 If not protocol 2 2 2 : Oxygen Flow, liters/minute 09/04/22 09/04/22 09/04/22 00:22 05:37 05:57 Temperature 36.8 C 36.5 C Heart Rate Heart Rate [ 72 86 Brachial] Respiratory 20 20 Rate Blood Pressure Blood Pressure 144/51 H 149/70 H [Right Brachial artery] O2 Saturation 90 L 78 L 93 If not protocol 2 2 2 : Oxygen Flow, liters/minute 09/04/22 09/04/22 09/04/22 07:15 07:50 08:45 Temperature 36.4 C L Heart Rate 80 Heart Rate [ 61 Brachial] Respiratory 16 20 Rate Blood Pressure 137/67 H Blood Pressure 137/67 H [Right Brachial artery] O2 Saturation 94 If not protocol 2 2 : Oxygen Flow, liters/minute Oxygen O2 Source Oxymask I&O (Last 24 Hrs): Intake and Output Totals x24h 09/02/22 09/03/22 09/04/22 23:59 23:59 23:59 Intake Total 1530 1390 200 Output Total 2250 1250 1100 Balance -720 140 -900 General: Alert, Oriented x3 HEENT: Mucous membr. moist/pink, Other (wearing O2 per n.c.) Neck: Supple Neuro: Alert, Non Focal Cardiovascular: No murmurs Respiratory: No respiratory distress (wearing O2 per n.c.) Abdomen: Soft Extremities: No clubbing, No edema - Results Results: Laboratory Results WBC 9.7 x10^3/uL (4.8-10.8) 09/04/22 08:35 RBC 3.52 10^6/uL (4.20-5.40) L 09/04/22 08:35 Hgb 9.8 g/dL (12.0-16.0) L 09/04/22 08:35 Hct 32.7 % (37.0-47.0) L 09/04/22 08:35 MCV 92.9 fL (81.0-99.0) 09/04/22 08:35 MCH 27.8 pg (27.0-31.0) 09/04/22 08:35 MCHC 30.0 g/dL (32.0-36.0) L 09/04/22 08:35 RDW 14.4 % (12.0-15.0) 09/04/22 08:35 Plt Count 275 10^3/uL (130-450) 09/04/22 08:35 MPV 9.5 fL (7.9-10.8) 09/04/22 08:35 Neut # (Auto) 7.8 10^3/uL (1.5-6.6) H 09/04/22 08:35 Lymph # (Auto) 1.3 10^3/uL (1.5-3.5) L 09/04/22 08:35 [place] # (Auto) 0.3 10^3/uL (0.0-1.0) 09/04/22 08:35 Eos # (Auto) 0.2 10^3/uL (0.0-0.7) 09/04/22 08:35 Baso # (Auto) 0.1 10^3/uL (0.0-0.1) 09/04/22 08:35 Absolute Nucleated RBC 0.00 x10^3/uL 09/04/22 08:35 Total Counted 100 08/29/22 06:05 Band Neuts % (Manual) 0 % (0-10) 08/29/22 06:05 Reactive Lymphs % (Man) 2 % 08/21/22 07:41 Abnorm Lymph % (Manual) 0 % 08/29/22 06:05 Metamyelocytes % 1 % (-0) H 08/26/22 08:09 Nucleated RBC % 0.0 /100WBC 09/04/22 08:35 Neutrophils # (Manual) 20.4 10^3/uL (1.5-6.6) H 08/29/22 06:05 Lymphocytes # (Manual) 1.9 10^3/uL (1.5-3.5) 08/29/22 06:05 Monocytes # (Manual) 1.2 10^3/uL (0.0-1.0) H 08/29/22 06:05 Eosinophils # (Manual) 0.2 10^3/uL (0-0.7) 08/29/22 06:05 Basophils # (Manual) 0.0 10^3/uL (0-0.1) 08/29/22 06:05 Differential Comment MANUAL DIFFERENTIAL 08/29/22 06:05 Manual Slide Review Indicated 08/28/22 07:45 WBC Morphology NORMAL APPEARANCE (NORMAL) 08/29/22 06:05 Platelet Estimate NORMAL (130-450,000) (NORMAL) 08/29/22 06:05 Platelet Morphology NORMAL APPEARANCE (NORMAL) 08/29/22 06:05 RBC Morph Micro Appear 1+ ANISOCYTOSIS (NORMAL) 08/29/22 06:05 Bld Gas Analysis Time 0933 08/29/22 09:25 Sample Site RIGHT RADIAL 08/29/22 09:25 ABG pH 7.40 (7.35-7.45) 08/29/22 09:25 ABG pCO2 64 mmHg (34-45) H* 08/29/22 09:25 ABG pO2 67 mmHg (80-100) L 08/29/22 09:25 ABG HCO3 39.0 mmol/L (22.0-26.0) H 08/29/22 09:25 ABG Total CO2 41.0 MMOL/L (21.0-29.0) H* 08/29/22 09:25 ABG O2 Saturation 94 % (94-98) 08/29/22 09:25 ABG Base Excess 11.8 mmol/L (-2.0-3.0) H 08/29/22 09:25 [place]igue Test POSITIVE 08/29/22 09:25 VBG pH 7.453 (7.31-7.41) H 08/30/22 05:15 Ionized Calcium 1.02 mmol/L (1.15-1.33) L 08/30/22 05:15 O2 Delivery Device OXYMASK 08/29/22 09:25 O2 Liters/Min 2.00 LPM 08/29/22 09:25 FiO2 44.00 08/17/22 05:40 Sodium 140 mmol/L (135-145) 09/04/22 08:35 Potassium 3.3 mmol/L (3.5-5.0) L 09/04/22 08:35 Chloride 96 mmol/L (101-111) L 09/04/22 08:35 Carbon Dioxide 40 mmol/L (21-32) H* 09/04/22 08:35 Anion Gap 4.0 (6-13) L 09/04/22 08:35 BUN 7 mg/dL (6-20) 09/04/22 08:35 Creatinine 0.5 mg/dL (0.4-1.0) 09/04/22 08:35 Estimated GFR (MDRD) 118 (>89) 09/04/22 08:35 Glucose 115 mg/dL (70-100) H 09/04/22 08:35 Calcium 7.7 mg/dL (8.5-10.3) L 09/04/22 08:35 Ionized Calcium YES 08/30/22 05:15 Phosphorus 2.6 mg/dL (2.5-4.6) 09/02/22 04:23 Magnesium 2.1 mg/dL (1.7-2.8) 09/02/22 04:23 Total Bilirubin 0.5 mg/dL (0.2-1.0) 08/25/22 07:15 AST 22 IU/L (10-42) 08/25/22 07:15 ALT 39 IU/L (10-60) 08/25/22 07:15 Alkaline Phosphatase 82 IU/L (42-121) 08/25/22 07:15 Total Creatine Kinase 16 IU/L (22-269) L 08/13/22 16:15 Troponin I High Sens 9.8 ng/L (2.3-14.8) 08/19/22 17:49 B-Natriuretic Peptide 246 pg/mL (5-100) H 08/18/22 08:05 Total Protein 5.5 g/dL (6.7-8.2) L 08/25/22 07:15 Albumin 2.1 g/dL (3.2-5.5) L 08/25/22 07:15 Globulin 3.4 g/dL (2.1-4.2) 08/25/22 07:15 Albumin/Globulin Ratio 0.6 (1.0-2.2) L 08/25/22 07:15 Triglycerides 68 mg/dL (-149) 08/14/22 05:04 Cholesterol 60 mg/dL (-199) 08/14/22 05:04 LDL Cholesterol, Calc 28 mg/dL (-129) 08/14/22 05:04 VLDL Cholesterol 14 mg/dL 08/14/22 05:04 HDL Cholesterol 18 mg/dL (60-) L 08/14/22 05:04 LDL/HDL Ratio 1.6 (<4.4) 08/14/22 05:04 Cholesterol/HDL Ratio 3.3 (<4.4) 08/14/22 05:04 Urine Color YELLOW 08/29/22 03:30 Urine Clarity CLEAR (CLEAR) 08/29/22 03:30 Urine pH 6.5 PH (5.0-7.5) 08/29/22 03:30 Ur Specific [place] 1.010 (1.002-1.030) 08/29/22 03:30 Urine Protein 30 mg/dL (NEGATIVE) H 08/29/22 03:30 Urine Glucose (UA) NEGATIVE mg/dL (NEGATIVE) 08/29/22 03:30 Urine Ketones NEGATIVE mg/dL (NEGATIVE) 08/29/22 03:30 Urine Occult Blood NEGATIVE (NEGATIVE) 08/29/22 03:30 Urine Nitrite NEGATIVE (NEGATIVE) 08/29/22 03:30 Urine Bilirubin NEGATIVE (NEGATIVE) 08/29/22 03:30 Urine Urobilinogen 0.2 (NORMAL) E.U./dL (NORMAL) 08/29/22 03:30 Ur Leukocyte Esterase NEGATIVE (NEGATIVE) 08/29/22 03:30 Urine RBC 0-5 /HPF (0-5) 08/29/22 03:30 Urine WBC 0-3 /HPF (0-5) 08/29/22 03:30 Urine WBC Clumps Cancelled 08/19/22 10:40 Ur Epithelial Cells Cancelled 08/19/22 10:40 Ur Squamous Epith Cells NONE SEEN (<= Few) 08/29/22 03:30 Urine Crystals Cancelled 08/19/22 10:40 Amorphous Sediment Cancelled 08/19/22 10:40 Urine Bacteria Rare /HPF (None Seen) 08/29/22 03:30 Urine Casts Cancelled 08/19/22 10:40 Urine Starch Cancelled 08/19/22 10:40 Urine Mucus Cancelled 08/19/22 10:40 Urine Trichomonas Cancelled 08/19/22 10:40 Urine Yeast Cancelled 08/19/22 10:40 Urine Sperm Cancelled 08/19/22 10:40 Ur Oval Fat Bodies Cancelled 08/19/22 10:40 Ur Microscopic Review NOT INDICATED 08/13/22 17:52 Urine Culture Comments NOT INDICATED 08/29/22 03:30 Nasal Screen MRSA (PCR) NEGATIVE (NEGATIVE) 08/19/22 16:35 Last Dose Date UNK 09/02/22 12:15 Last Dose Time UNK 09/02/22 12:15 Vancomycin Peak 36.3 ug/mL (20.0-40.0) 08/20/22 14:16 Vancomycin Trough 12.9 ug/mL (10.0-20.0) 09/02/22 12:15 SARS-CoV-2 (PCR) NOT DETECTED 08/18/22 08:43 - Procedures Procedures: Procedures EXCISION OF CECUM, ENDO (03/24/19) EXCISION OF SIGMOID COLON, ENDO (03/24/19) EXCISION OF TRANSVERSE COLON, ENDO (03/24/19)
[2022-09-04] MEDS: GABAPENTIN 100 MG CAPSULE PO SCH ×2 (12:41→20:48)
[2022-09-04] MEDS: SODIUM CHLORIDE FLUSH 0.9% 10 ML SYRINGE IVP PRN ×2 (12:45→17:59)
[2022-09-04] MEDS: dexAMETHasone 4 MG TABLET PO SCH (12:45)
[2022-09-04] MEDS: VANCOMYCIN INJ 1.25 GM in SODIUM CHLORIDE 0.9% 250 ML IV SCH (18:00)
[2022-09-04] MEDS: POTASSIUM CHLOR 10 MEQ/100 ML 10 MEQ/100 ML BAG IV SCH ×2 (19:39→20:42)
[2022-09-04] MEDS: MIRTAZAPINE 15 MG TABLET PO SCH (20:48)
[2022-09-04] MEDS: MONTELUKAST 10 MG TABLET PO SCH (20:49)
--- NOTE | 2022-09-04 21:02 | CONSULTATION NOTE ---
Palliative Care Consultation - Referral Referring Provider: Dr. Claire Burnett Time of Visit: 11-12 pm: 16-1630 pm Referral setting: Hospitalized patient Referral Reason: Goals of Care - Information Sources Records reviewed: RN notes reviewed, Previous records reviewed History/Review of Systems obtained from: Patient, Family (spoke with son/GINNA Bernal) Exam limitations: Clinical condition (patient admits to [facility] issues) - History of Present Illness Brief History of Present Illness: This is a 81-year-old woman who has been hospitalized since 08/13/2022, with fairly long complicated course. Patient presented with a history that actually preceded her most recent acute decline and current hospitalization. She reports herself she has had COPD for 10+ years, and has been oxygen dependent. She has been hospitalized and treated both the ED and urgent care for multiple exacerbations of her COPD, and reports ongoing functional and weight loss over several months, and doing more poorly at home. She had a fall and occurrence of pneumonia, resulting in ED visit on , and was transferred to [facility] with a femoral left hip fracture, for which she received a percutaneous pinning on 05/20. She did eventually return home, and was seen by home health, but progressed very slowly, was only able to ambulate a few steps, and became more sedentary, as well as her anorexia is worsening. She presented here to the hospital, after another fall, for which she fell while leaning over, hitting her side on the cabinet, she refused at that point in time to go to the ED, but continued to worsen over several days, and ended up calling 911. Here in the hospital she has been treated for acute on chronic respiratory failure with hypoxia, was found to have pneumonia, and further work-up with a spike in her WBC, was found to have cavity in the lung, with antibiotics suggested and she is currently responding. She actually had of good response over the weekend, was eating somewhat better, but continues to be challenged with fatigue. She also has known severe protein calorie malnutrition with BMI of only 17, and has a known weight loss of at least 12% of her weight in 6 months. She reports she has no appetite, but this is changing some. She was started on Remeron, with hope for response. She was also found to have urinary retention, UTI, currently still has her Paz catheter. 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 Patient denies any chest pain or symptomology, but does have persistent fatigue. Palliative care has been consulted secondary to concerns for patient's symptoms of failure to thrive, complex and complicated family situation, as well as eliciting goals from patient. Patient has been on a fairly slow downward course, worsened by her hip fracture, and now with her acute hospitalization.When asked patient her current understanding of her condition, she reports "I do not really understand anything", but then went on to tell me she has pneumonia, COPD, her heart has been doing weird things for years, and she does understand she is hospitalized and there are concerns. She reports she reports has "not a good memory to tell you the truth". Medical/Surgical History - Past Medical History Cardiovascular: reports: Hypertension, Atrial flutter, Atrial fibrillation, Arrhythmia Respiratory: reports: Asthma, COPD, Pneumonia, Shortness of breath, Other (oxyg en dependent) Neuro: CVA (1990), Other (STM deficits) Endocrine/Autoimmune: reports: None GI: reports: None CASING SPLITTER: reports: None : reports: Kidney stones HEENT: reports: None Psych: reports: Eating disorder Musculoskeletal: reports: Fatigue, Chronic back pain, Other (HX left hip fx) Derm: reports: None MRSA Hx?: No - Past Surgical History Ortho: reports: Hip replacement (05/20/22) - Substance History Use: Uses substance without health or social issues: NONE Social History - Living Situation Living arrangement: At home Living Situation: With friend(s) (adopted granddaughter Ben with apergers; Mariana "adopted" but not legally, does shopping, bills, sets up medications; errands not personal care; friend Keyshawn comes daily to help with meals, laundry- has known her for 50 years) Medications/Allergies - Medications Active Medication List: Active Medications Acetaminophen (Acetaminophen 325 Mg Tablet) 650 mg PO Q4HR PRN PRN Reason: FEVER > 100.5 F Aspirin (Aspirin Chew 81 Mg Tablet) 81 mg PO DAILY [facility] Last Admin: 09/04/22 08:44 Dose: 81 mg Dexamethasone (Dexamethasone 4 Mg Tablet) 2 mg PO DAILY [facility] Stop: 09/09/22 00:01 Last Admin: 09/04/22 12:45 Dose: 2 mg Enoxaparin Sodium (Enoxaparin 40 Mg/0.4 Ml Syringe) 40 mg SUBQ DAILY [facility] Last Admin: 09/04/22 08:43 Dose: 40 mg Famotidine (Famotidine 20 Mg Tablet) 20 mg PO BID [facility] Last Admin: 09/04/22 08:45 Dose: 20 mg Gabapentin (Gabapentin 100 Mg Capsule) 100 mg PO 1300,2000 [facility] Last Admin: 09/04/22 12:41 Dose: 100 mg Guaifenesin (Guaifenesin 600 Mg Tablet) 600 mg PO BID [facility] Last Admin: 09/04/22 08:45 Dose: 600 mg Fluconazole (Diflucan 200 Mg/100 Ml) 100 mls @ 100 mls/hr IV DAILY [facility] Last Infusion: 09/04/22 09:35 Dose: Infused Metronidazole (Flagyl 500 Mg/100 Ml) 500 mg in 100 mls @ 100 mls/hr IV Q8H [facility] Last Infusion: 09/04/22 11:35 Dose: Infused Vancomycin HCl 1.25 gm/ Sodium (Chloride) 250 mls @ 167 mls/hr IV Q24H [facility] Last Infusion: 09/03/22 20:16 Dose: Infused Levalbuterol HCl (Levalbuterol 1.25 Mg/3 Ml Neb) 1.25 mg INH Q4H PRN PRN Reason: Shortness of Air/Wheezing Levalbuterol HCl (Levalbuterol 1.25 Mg/3 Ml Neb) 1.25 mg INH RTQID [facility] Last Admin: 09/04/22 11:25 Dose: 1.25 mg Metoprolol Tartrate (Metoprolol Tartrate 25 Mg Tablet) 12.5 mg PO BID [facility] Last Admin: 09/04/22 08:45 Dose: 12.5 mg Mirtazapine (Mirtazapine 15 Mg Tablet) 15 mg PO QPM [facility] Last Admin: 09/03/22 20:27 Dose: 15 mg Montelukast Sodium (Montelukast 10 Mg Tablet) 10 mg PO QPM [facility] Last Admin: 09/03/22 20:26 Dose: 10 mg Multi-Ingredient Ointment (Zinc Oxide 20% Oint 30 Gm Tube) 1 applic TOP PRN PRN PRN Reason: Skin Care Last Admin: 09/03/22 20:25 Dose: 1 applic Multivitamins/Minerals (Multivitamin W/Minerals Tablet) 1 tab PO DAILYWM [facility] Last Admin: 09/04/22 08:44 Dose: 1 tab Uiath-0-Nguf Ethyl Esters (Evergreen-3 Acid Ethyl Esters 1 Gm Capsule) 1 gm PO BIDWM [facility] Last Admin: 09/04/22 08:45 Dose: 1 gm Ondansetron HCl (Ondansetron Odt 4 Mg Tablet) 4 mg TL Q6HR PRN PRN Reason: Nausea / Vomiting Ondansetron HCl (Ondansetron 4 Mg/2 Ml Vial) 4 mg IVP Q6HR PRN PRN Reason: Nausea / Vomiting Saccharomyces Boulardii (Saccharomyces Boulardii 250 Mg Capsule) 250 mg PO BIDWM [facility] Last Admin: 09/04/22 08:45 Dose: 250 mg Sodium Chloride (Sodium Chloride Flush 0.9% 10 Ml Syringe) 10 ml IVP PRN PRN PRN Reason: NEEDED PER PROVIDER ORDERS Last Admin: 09/04/22 12:45 Dose: 10 ml Sodium Chloride (Sodium Chloride Flush 0.9% 10 Ml Syringe) 10 ml IVP 0100, 0900,1700 [facility] Last Admin: 09/04/22 08:30 Dose: 10 ml Tamsulosin HCl (Tamsulosin 0.4 Mg Capsule) 0.4 mg PO DAILY [facility] Last Admin: 09/04/22 08:45 Dose: 0.4 mg Albuterol Sulfate [Proventil Hfa Inhaler] 2 puffs INH Q4H PRN 03/21/19 Fluticasone/Salmeterol [Advair 500-50 Diskus] 1 each IH BID 03/21/19 Furosemide [Lasix] 60 mg PO DAILY 03/21/19 Potassium Chloride [Klor-Con 10] 20 meq PO DAILY 03/21/19 dilTIAZem HCL [Diltiazem ER] 240 mg PO DAILY 03/21/19 Gabapentin [Neurontin] 300 mg PO TID 08/14/22 Simvastatin [Zocor] 20 mg PO QPM 08/14/22 Tamsulosin [Flomax] 0.4 mg PO DAILY 08/14/22 Tiotropium Girard [Spiriva Respimat] 2 puffs INH BID 08/14/22 - Allergies Allergies/Adverse Reactions: Allergies Allergy/AdvReac Type Severity Reaction Status Date / Time Penicillins Allergy Intermediate Hives, Verified 07/06/22 14:29 swelling aspirin Allergy Mild Rash Verified 07/06/22 14:29 piroxicam [From Feldene] Allergy Mild Rash Verified 07/06/22 14:29 meperidine [From Demerol] Allergy Unknown Verified 07/06/22 14:29 Review of Systems - Constitutional Constitutional: reports: Fatigue, Weakness, Poor appetite, Weight loss - Ears, Nose & Throat Ears, Nose & Throat: reports: Dentures, Dry mouth - Cardiovascular Cardiovascular: reports: Irregular heart rate. denies: Chest pain - Respiratory Respiratory: reports: Cough, Wheezing, SOB with exertion. denies: Pleuritic pain - Gastrointestinal Gastrointestinal: reports: Diarrhea, Poor appetite, Early satiety - Genitourinary Genitourinary: reports: Other (has catheter for retention) - Musculoskeletal Musculoskeletal: reports: Back pain, Muscle aches, Stiffness, Limited range of motion, Muscle weakness, Transfer issues - Neurological Neurological: reports: General weakness, Memory problems (per her report) - Psychiatric Psychiatric: reports: Depression, Anxiety - Hematologic/Lymphatic Hematologic/Lymph: reports: Anemia, Recurrent infections (pneumonia/bronchitis) Physical Exam - Vital Signs Vital Signs: Vital Signs x48h Temp Pulse Pulse Resp BP BP Pulse Ox 09/04/22 11:25 80 16 09/04/22 11:20 36.5 C 53 L 22 119/80 92 09/04/22 08:45 137/67 H 09/04/22 07:50 36.4 C L 61 20 137/67 H 94 09/04/22 07:15 80 16 09/04/22 05:57 93 09/04/22 05:37 36.5 C 86 20 149/70 H 78 L O2 Flow Rate 09/04/22 11:25 2 09/04/22 11:20 2 09/04/22 08:45 09/04/22 07:50 2 09/04/22 07:15 2 09/04/22 05:57 2 09/04/22 05:37 2 - Physical Exam General Appearance: positive: No acute distress, Alert, Anxious, Cachetic Eyes Bilateral: positive: Other (mild periorbital edema) Neck: positive: Trachea midline Cardiovascular: positive: Irregular Respiratory: positive: No respiratory distress (except with transfers) Abdomen: positive: Soft Skin: positive: Pallor, Dryness Neurologic/Psychiatric: positive: Oriented x3, Weakness, Flat affect Palliative Care - POLST Patient has POLST: Yes POLST Status: DNR, Selective Treatment Sleep: Variable sleep pattern Constipation: No Performance Status: Patient does recognize her decline in functional status. Reports "she could even wipe her own ass right now", when asked what she can do independently. She had home health following her hip fracture, and does understand they have limited ability to do intensive therapy, much less hands-on. We did discuss and introduced most likely unless she had 09/10 caregiving, would need support to bridge to return home, this would include SNF placement. She did get a shower yesterday, but it was reported had not up almost a year. She lives "downstairs" has bedroom and bathroom. Son Gabe, reports this was set up for his father originally prior, he was a double amputee WWII - Palliative Care Discussion: Patient has on file a durable power of her attorney law clerk from 08/14/2012. This names Mere Chamorro and Ravin Lagunas, There is quite a complicated history in the context of all the people involved in Tiffany's life. Between her children, adopted children in foster care she is taking care of over more than 20 children. She is currently responsible for 1 granddaughter in the home, who is with Asperger's per Gabe, there was another that she adopted but has no longer guardianship for. Per Gabe, he is the durable power of health attorney law clerk, he does have a do cument dated 09/02/2016 which puts him as a primary and his sister's son Wilmar as a secondary. He will get me a copy of this, and is willing to serve in this role. He does understand currently his mother is making decisions, but has encouraged her and family is in support of her going to a SNF short-term. When confirmed with patient regarding the concern over a designated DPOA, she reports she has designated and would pick Gabe her son is her primary and her grandson as backup. Patient did fill out a POLST with the hospitalist, for do not attempt resuscitation/DNI and selective treatments. Patient's goals at this time are to go home, but does understand in the context of her current level of functioning, may need an interim plan. Her daughter Susan who I was unable to contact today, per her son Gabe is planning to come out to be a caregiver but is not available until after October 04, and her daughter per Gabe, Criselda, is not available until she sells her house. He himself is not available until end of August and is still working. Both patient and son, confirm patient does not have the resources to hire the care she would need currently. Patient's hope is to return to home, being able to independently manage at least toileting and some of her ADLs as previously. She does understand currently she is too weak and needs more help and is possible in her current setting. Did spend quite a bit of time talking with Gabe, he does recognize she is declining, and has been worse particularly since her hip fracture. He has been talking to his Sister Susan and brother Nader, they do want a best supportive plan for her, and has been quite straightforward with her this most likely will include a SNF to get her stronger and more independent. He feels they do understand that she is quite fragile, and are worried regarding her underlying health issues, but do understand most likely will not return to previous level of functioning but would like her to have better quality of life. Counseling provided regarding the continuum of care, including if patient were not to impro ve or worsen during or after SNF stay, focus on comfort would be the realm of the hospice team. They are hoping for the best, that she improve from her acute illness, but I do recognize her fragility. Results - Lab Results Lab results reviewed: Yes Fish Bones: 09/04/22 08:35 09/04/22 08:35 Lab and Imaging Results: Lab Results x24hrs 09/04/22 09/04/22 Range/Units 08:35 08:35 WBC 9.7 (4.8-10.8) x10^3/uL RBC 3.52 L (4.20-5.40) 10^6/uL Hgb 9.8 L (12.0-16.0) g/dL Hct 32.7 L (37.0-47.0) % MCV 92.9 (81.0-99.0) fL MCH 27.8 (27.0-31.0) pg MCHC 30.0 L (32.0-36.0) g/dL RDW 14.4 (12.0-15.0) % Plt Count 275 (130-450) 10^3/uL MPV 9.5 (7.9-10.8) fL Neut # (Auto) 7.8 H (1.5-6.6) 10^3/uL Lymph # (Auto) 1.3 L (1.5-3.5) 10^3/uL Dickinson # (Auto) 0.3 (0.0-1.0) 10^3/uL Eos # (Auto) 0.2 (0.0-0.7) 10^3/uL Baso # (Auto) 0.1 (0.0-0.1) 10^3/uL Absolute Nucleated RBC 0.00 x10^3/uL Nucleated RBC % 0.0 /100WBC Sodium 140 (135-145) mmol/L Potassium 3.3 L (3.5-5.0) mmol/L Chloride 96 L (101-111) mmol/L Carbon Dioxide 40 H* (21-32) mmol/L Anion Gap 4.0 L (6-13) BUN 7 (6-20) mg/dL Creatinine 0.5 (0.4-1.0) mg/dL Estimated GFR (MDRD) 118 (>89) Glucose 115 H (70-100) mg/dL Calcium 7.7 L (8.5-10.3) mg/dL Impression and Recommendations - Palliative Care Impression: This is an 81-year-old woman who presents with multiple comorbidities, and acute illness of cavitary lesion of lung, pneumonia, acute on chronic respiratory failure and acute UTI. Patient continues with fluctuating cardiac status, with most likely tachybradycardia syndrome. Patient has had ongoing functional decline, over the last several months, worsening with acute hip fracture, pneumonia, frequent COPD exacerbations and has done poorly with this acute hosp italization. Of most concern, has been patient's weight loss, anorexia, and worsening fatigue.Patient is somewhat ambivalent regarding her current status, does recognize her decline, but also is hoping for the best to transition back home. It does appear she has little insight to the seriousness of her illness though does seem to recognize would not be able to cope with in her current state. Palliative care working with patient and family to define goals of care, both short-term and long-term plan. We will continue to follow for goal definition. Recommendations/Counseling Done: 1. Anorexia. This most likely is multifactorial, including acute illness, history of poor intake, taste changes, and early satiety. Patient did have some improvement over the weekend, may be as result of changed antibiotics. Patient was started on Remeron /, would continue this. Would recommend adding small dose of dexamethasone 2 mg in a.m. to see if helpful and jump starting appetite, may help with fatigue, and possible mood elevation. 2. Generalized weakness. Has been difficult in the context of patient's ability and energy to participate in physical therapy. She has been now hospitalized for extended period of time with mostly bedbound status. Patient's previous level of functioning was impacted by her recent hip fracture, would benefit from more intensified rehab program versus home health, particularly given her resources in her home setting. Initiated conversation regarding this, particularly in light of functional decline, with goal to be more independent at home. And follow-up with Gabe her son/DPOA, he is encouraging as well SNF placement with goal for improvement prior to discharge home and need for caregiving support. 3. Advance care planning. Will obtain official DPOA, patient though has verbalized identifying Gabe her son, and grandson as backup as well. Son does have copy of this documentation, reports they have just been completing her plans for cremation. They are trying to move forward and get her end-of-life planning and documentation in place. We are also looking at both short-term and long-term plan to meet her care needs, as her frailty and functional decline are obvious to he and his siblings she is going to need more definitive support.Counseling provided regarding the continuum of care, hoping for the best, looking at what components are available to support transition planning. We will follow-up with daughter Susan in the a.m., had reached out to her, and present again information available to explore patient's goals of care further. Though she is somewhat resigned most likely is going to need a bridge plan prior to transitioning home. Patient scores on the Abelardo index a 4. This looks at hospitalized adults age 70 and older, with outcome all cause 1 year mortality. She falls at 34%, risk calculators cannot predict the future for any 1 individual but do give an estimate of how many people with similar risk factors will live and but cannot identify who will live and who will . Patient also has presented with low BMI, poor intake, functional decline, and hip fracture within the last 6 months. 90 minutes with review of chart, labs, imaging, history, [id number] with patient, coordination of care with hospitalist/WAREHOUSE AND RECEIVING SUPERVISOR/nursing team and son/DPOA Gabe Austin.
[2022-09-05] MEDS: SODIUM CHLORIDE FLUSH 0.9% 10 ML SYRINGE IVP SCH ×4 (00:07→20:44)
[2022-09-05] MEDS: metroNIDAZOLE 500 MG/100 ML 500 MG/100 ML BAG IV SCH ×3 (02:21→19:24)
[2022-09-05 04:21] LABS: BASOPHILS # (AUTO) 0.1 10^3/uL (0.0-0.1); BASOPHILS % (AUTO) 0.5 %; EOSINOPHILS % (AUTO) 0.3 %; HCT - HEMATOCRIT 31.6 % (37.0-47.0); HGB - HEMOGLOBIN 9.2 g/dL (12.0-16.0); MEAN CORPUSCULAR HEMOGLOBIN 27.2 pg (27.0-31.0); MEAN CORPUSCULAR HGB CONC 29.1 g/dL (32.0-36.0); MEAN CORPUSCULAR VOLUME 93.5 fL (81.0-99.0); MEAN PLATELET VOLUME 9.4 fL (7.9-10.8); MONOCYTES # (AUTO) 0.4 10^3/uL (0.0-1.0); MONOCYTES % (AUTO) 3.5 %; NEUTROPHILS % (AUTO) 86.1 %; PLT - PLATELET COUNT 271 10^3/uL (130-450); RED BLOOD COUNT 3.38 10^6/uL (4.20-5.40); RED CELL DISTRIBUTION WIDTH 14.6 % (12.0-15.0); WHITE BLOOD COUNT 11.6 x10^3/uL (4.8-10.8)
[2022-09-05 04:33] LABS: VANCOMYCIN,TROUGH 23.8 ug/mL (10.0-20.0)
[2022-09-05 04:36] LABS: CALCIUM 7.8 mg/dL (8.5-10.3); CREATININE 0.5 mg/dL (0.4-1.0); POTASSIUM 3.9 mmol/L (3.5-5.0)
[2022-09-05] MEDS: LEVALBUTEROL 1.25 MG/3 ML NEB INH SCH ×4 (07:11→20:32)
--- NOTE | 2022-09-05 07:56 | PROVIDER PROGRESS NOTE ---
Subjective - Prog Note Date Prog Note Date: 09/05/22 Prog Note Time: 07:56 - Subjective Pt reports feeling: No change Subjective: She feels like "maybe I am getting a little stronger". She is very tired. It is such an effort to get out of bed and she refuses to work with physical therapy quite a bit of time. She also cannot be cajolled to get out of bed to get up and eat. She prefers to stay in bed. She complains bitterly of sleep deprivation. She tells me that just when she is "just about to fall asleep, someone walks in the door". There have been no fevers during her stay. White cell count on admission was 12.6. That was on August 13. She peaked at 33,000 on August 28. Since that time she has been coming down. Yesterday she was actually normal at 9.7 but today she is 11.6. Weight on admission was 49 kg. She peaked at 57.5 kg on August 23. She is down to 54 kg today. She is erratic in her eating. Sometimes she only takes bites of her food. Sometimes she is 100% of her food. Yesterday she ate 25% of break fast, 50% of dinner, none of her lunch. Today she ate 75% of breakfast, 50% of lunch. She had developed some anasarca because of fluid resuscitation and that is slowly improving. Yet today she has almost none. She is using a pure wick catheter. She is requiring a two-person assist. This morning it took PT/OT 20 minutes to try and get her up out of bed to sit up in a chair. The most she can do is just sit at the edge of the bed. Current Medications - Current Medications Current Medications: Active Medications Acetaminophen (Acetaminophen 325 Mg Tablet) 650 mg PO Q4HR PRN PRN Reason: FEVER > 100.5 F Aspirin (Aspirin Chew 81 Mg Tablet) 81 mg PO DAILY [facility] Last Admin: 09/04/22 08:44 Dose: 81 mg Dexamethasone (Dexamethasone 4 Mg Tablet) 2 mg PO DAILY [facility] Stop: 09/09/22 00:01 Last Admin: 09/04/22 12:45 Dose: 2 mg Enoxaparin Sodium (Enoxaparin 40 Mg/0.4 Ml Syringe) 40 mg SUBQ DAILY [facility] Last Admin: 09/04/22 08:43 Dose: 40 mg Famotidine (Famotidine 20 Mg Tablet) 20 mg PO BID [facility] Last Admin: 09/04/22 20:47 Dose: 20 mg Gabapentin (Gabapentin 100 Mg Capsule) 100 mg PO 1300,2000 [facility] Last Admin: 09/04/22 20:48 Dose: 100 mg Guaifenesin (Guaifenesin 600 Mg Tablet) 600 mg PO BID [facility] Last Admin: 09/04/22 20:47 Dose: 600 mg Fluconazole (Diflucan 200 Mg/100 Ml) 100 mls @ 100 mls/hr IV DAILY [facility] Last Infusion: 09/04/22 09:35 Dose: Infused Metronidazole (Flagyl 500 Mg/100 Ml) 500 mg in 100 mls @ 100 mls/hr IV Q8H [facility] Last Infusion: 09/05/22 03:32 Dose: Infused Vancomycin HCl 1.25 gm/ Sodium (Chloride) 250 mls @ 167 mls/hr IV Q24H [facility] Last Infusion: 09/04/22 19:39 Dose: Infused Levalbuterol HCl (Levalbuterol 1.25 Mg/3 Ml Neb) 1.25 mg INH Q4H PRN PRN Reason: Shortness of Air/Wheezing Levalbuterol HCl (Levalbuterol 1.25 Mg/3 Ml Neb) 1.25 mg INH RTQID [facility] Last Admin: 09/05/22 07:11 Dose: 1.25 mg Metoprolol Tartrate (Metoprolol Tartrate 25 Mg Tablet) 12.5 mg PO BID [facility] Last Admin: 09/04/22 20:48 Dose: 12.5 mg Mirtazapine (Mirtazapine 15 Mg Tablet) 15 mg PO QPM [facility] Last Admin: 09/04/22 20:48 Dose: 15 mg Montelukast Sodium (Montelukast 10 Mg Tablet) 10 mg PO QPM [facility] Last Admin: 09/04/22 20:49 Dose: 10 mg Multi-Ingredient Ointment (Zinc Oxide 20% Oint 30 Gm Tube) 1 applic TOP PRN PRN PRN Reason: Skin Care Last Admin: 09/03/22 20:25 Dose: 1 applic Multivitamins/Minerals (Multivitamin W/Minerals Tablet) 1 tab PO DAILYWM [facility] Last Admin: 09/04/22 08:44 Dose: 1 tab Itvhp-[id number] Ethyl Esters ([place]-3 Acid Ethyl Esters 1 Gm Capsule) 1 gm PO BIDWM [facility] Last Admin: 09/04/22 17:59 Dose: 1 gm Ondansetron HCl (Ondansetron Odt 4 Mg Tablet) 4 mg TL Q6HR PRN PRN Reason: Nausea / Vomiting Ondansetron HCl (Ondansetron 4 Mg/2 Ml Vial) 4 mg IVP Q6HR PRN PRN Reason: Nausea / Vomiting Saccharomyces Boulardii (Saccharomyces Boulardii 250 Mg Capsule) 250 mg PO BIDWM [facility] Last Admin: 09/04/22 17:59 Dose: 250 mg Sodium Chloride (Sodium Chloride Flush 0.9% 10 Ml Syringe) 10 ml IVP PRN PRN PRN Reason: NEEDED PER PROVIDER ORDERS Last Admin: 09/04/22 17:59 Dose: 10 ml Sodium Chloride (Sodium Chloride Flush 0.9% 10 Ml Syringe) 10 ml IVP 0100,0900,1700 [facility] Last Admin: 09/05/22 00:07 Dose: 10 ml Tamsulosin HCl (Tamsulosin 0.4 Mg Capsule) 0.4 mg PO DAILY [facility] Last Admin: 09/04/22 08:45 Dose: 0.4 mg Albuterol Sulfate [Proventil Hfa Inhaler] 2 puffs INH Q4H PRN 03/21/19 Fluticasone/Salmeterol [Advair 500-50 Diskus] 1 each IH BID 03/21/19 Furosemide [Lasix] 60 mg PO DAILY 03/21/19 Potassium Chloride [Klor-Con 10] 20 meq PO DAILY 03/21/19 dilTIAZem HCL [Diltiazem ER] 240 mg PO DAILY 03/21/19 Gabapentin [Neurontin] 300 mg PO TID 08/14/22 Simvastatin [Zocor] 20 mg PO QPM 08/14/22 Tamsulosin [Flomax] 0.4 mg PO DAILY 08/14/22 Tiotropium [place] [Spiriva Respimat] 2 puffs INH BID 08/14/22 Objective - Vital Signs/Intake & Output Reviewed Vital Signs: Yes Vital Signs: Vital Signs x48h Temp Pulse Pulse Pulse Resp BP Pulse Ox 09/05/22 07:12 84 20 09/05/22 05:29 36.5 C 81 20 159/88 H 96 09/05/22 00:16 36.5 C 74 20 143/70 H 90 L O2 Flow Rate 09/05/22 07:12 2 09/05/22 05:29 2.5 09/05/22 00:16 2.5 Intake & Output: Intake & Output 09/02/22 09/03/22 09/04/22 09/05/22 23:59 23:59 23:59 23:59 Intake Total 1530 1390 1970 100 Output Total 2250 1250 2150 475 Balance -720 140 -180 -375 - Objective General Appearance: positive: Alert, Other (Deaf, but quite able to communicate her complaints, no acute distress) Eyes Bilateral: positive: PERRL, EOMI ENT: positive: No signs of dehydration Neck: positive: No JVD. negative: Stiff neck Respiratory: positive: No respiratory distress. negative: Wheezes, Rales, Rhonchi Cardiovascular: positive: Irregularly irregular, Systolic murmur Abdomen: positive: Non-tender, No organomegaly, Nml bowel sounds, No distention Skin: positive: Warm, Dry Extremities: positive: Full ROM, Pedal edema (Minimal around the ankle) Neurologic/Psychiatric: positive: Oriented x3, Motor nml (No focal deficits, just generalized weakness. Just sitting her up in bed was a major undertaking. Much less trying to stand pivot and transfer). negative: CN's nml (2-12) (Deafness) - Lab Results Fish Bones: 09/05/22 04:10 09/05/22 04:10 Other Labs: Lab Results x24hrs 09/05/22 09/05/22 09/05/22 Range/Units 04:10 04:10 04:10 WBC 11.6 H (4.8-10.8) x10^3/uL RBC 3.38 L (4.20-5.40) 10^6/uL Hgb 9.2 L (12.0-16.0) g/dL Hct 31.6 L (37.0-47.0) % MCV 93.5 (81.0-99.0) fL MCH 27.2 (27.0-31.0) pg MCHC 29.1 L (32.0-36.0) g/dL RDW 14.6 (12.0-15.0) % Plt Count 271 (130-450) 10^3/uL MPV 9.4 (7.9-10.8) fL Neut # (Auto) 10.0 H (1.5-6.6) 10^3/uL Lymph # (Auto) 1.0 L (1.5-3.5) 10^3/uL Mccormick # (Auto) 0.4 (0.0-1.0) 10^3/uL Eos # (Auto) 0.0 (0.0-0.7) 10^3/uL Baso # (Auto) 0.1 (0.0-0.1) 10^3/uL Absolute Nucleated RBC 0.00 x10^3/uL Nucleated RBC % 0.0 /100WBC Sodium 141 (135-145) mmol/L Potassium 3.9 (3.5-5.0) mmol/L Chloride 97 L (101-111) mmol/L Carbon Dioxide 39 H* (21-32) mmol/L Anion Gap 5.0 L (6-13) BUN 8 (6-20) mg/dL Creatinine 0.5 (0.4-1.0) mg/dL Estimated GFR (MDRD) 118 (>89) Glucose 119 H (70-100) mg/dL Calcium 7.8 L (8.5-10.3) mg/dL Last Dose Date 09/04/22 Last Dose Time 1938 Vancomycin Trough 23.8 H (10.0-20.0) ug/mL 09/04/22 09/04/22 Range/Units 08:35 08:35 WBC 9.7 (4.8-10.8) x10^3/uL RBC 3.52 L (4.20-5.40) 10^6/uL Hgb 9.8 L (12.0-16.0) g/dL Hct 32.7 L (37.0-47.0) % MCV 92.9 (81.0-99.0) fL MCH 27.8 (27.0-31.0) pg MCHC 30.0 L (32.0-36.0) g/dL RDW 14.4 (12.0-15.0) % Plt Count 275 (130-450) 10^3/uL MPV 9.5 (7.9-10.8) fL Neut # (Auto) 7.8 H (1.5-6.6) 10^3/uL Lymph # (Auto) 1.3 L (1.5-3.5) 10^3/uL Mccormick # (Auto) 0.3 (0.0-1.0) 10^3/uL Eos # (Auto) 0.2 (0.0-0.7) 10^3/uL Baso # (Auto) 0.1 (0.0-0.1) 10^3/uL Absolute Nucleated RBC 0.00 x10^3/uL Nucleated RBC % 0.0 /100WBC Sodium 140 (135-145) mmol/L Potassium 3.3 L (3.5-5.0) mmol/L Chloride 96 L (101-111) mmol/L Carbon Dioxide 40 H* (21-32) mmol/L Anion Gap 4.0 L (6-13) BUN 7 (6-20) mg/dL Creatinine 0.5 (0.4-1.0) mg/dL Estimated GFR (MDRD) 118 (>89) Glucose 115 H (70-100) mg/dL Calcium 7.7 L (8.5-10.3) mg/dL Last Dose Date Last Dose Time Vancomycin Trough (10.0-20.0) ug/mL ABX Reporting Has patient been on IV antibiotics over the past 48 hours?: Yes Assessment/Plan - Problem List (1) Generalized weakness Impression: The brain MRI showed only diffuse changes of atrophy, no evidence of old stroke or recent stroke. The patient does carry a diagnosis of polio, which may have given L>R leg weakness, noticed at admission. But her obtundation was probably from dehydration, initially. Then most of this hospitalization, until Sunday09/02/2022, she was sleeping most of the day, and was intermittently too tired to participate with rehab, and would eat only bites with all her meals. She has cognitive capacity and Code status was discussed with her on 08/30, and she was made a DNR and a POLST form was completed and scanned into her EMR. On September 02 and , she had good strength to work with PT, was awake, ate 75% of her meals well, was engaged. For the first time in over a year she had a shower on September 03. Starting the she just did not want to get out of bed again. And today that is her theme. Plan: We will continue to cajole, prompt, and encourage that she work with PT and OT. At this time physical therapy feels that they are reaching the point where they may not be able to work with her due to her generalized weakness. This is important because she would not be able to be transition to a intermediate facility for rehab as her son would wish. She may have to be transition to permanent placement at discharge. The patient is slowly starting to realize that she will not be able to go home again. Palliative care has seen the patient September 04 and today. I am grateful for their consultative service. It is helping that the overall message to this patient is staying the same. (2) Acute and chronic respiratory failure with hypoxia Assessment/Plan: Patient was on home O2 and then became more hypoxic when work-up showed a new pneumonia found on CXR on her 3rd day here, and antibx were started after cx obtained. She was in new atrial flutter with RVR then too. Since that time, the latest chest x-rays have shown a cavity in the lungs and her iv antibiotic were adjusted again. She has been consistently on 2 L nasal cannula since September 02. Prior to that she was high as 3 L nasal cannula. O2 sats are 93% at rest with this. She is developing a compensatory metabolic alkalosis. Her carbon dioxide level was 37 on admission and slowly came down to normal. Starting August 28 its been climbing again and was as high as 41 on September 02. Today she is down to 39. Plan: Continue supplemental O2, target saturation is > 88% I will encourage incentive spirometry. Encourage deep breathing and coughing. See if I can reduce that to 1 L nasal cannula to maintain O2 sats above 88%. (3) Cavitary lesions of lung Assessment/Plan: Her CXR on 08/17 showed a new RUL pneumonia. We obtained blood cx and sputum cx, We had her on antibx to cover a Healthcare-associated pneumonia: using IV vancomycin, and IV Cefepime. August 22, 2022-sputum culture grew E. coli so we DC'd vancomycin and kept her cefepime and added Flagyl for possibility of aspiration pneumonia August 23, 2022-sputum culture then grew MRSA so we added back IV vancomycin August 24, 2022 per pharmacy recommendations switching from cefepime to Rocephin which sensitivities of the culture show that is appropriate for the E. coli and will continue with IV vancomycin continue with IV Flagyl which was added for possibility of aspiration pneumonia also. Ceftriaxone was given from August 24 through August 30. August 25, 2022-patient seemed more alert & responsive and we continued that ant ibiotic combination regimen for at least a total of 7 days, since her sputum grew E. coli and MRSA August 28, 2022-patient had increasing leukocytosis up to 33,000. Chest x-ray showed a cavitary lesion in the right upper lung zone; differential included necrotizing pneumonia/aspiration pneumonia versus mass. A chest CT scan was done 08/28 and was read as having a cavitary lesion enlarging during her time here, which could be PNA from fungus vs bacteria. August 31iflucan added As such I am interpreting all of this is a patient who probably had aspiration and has developed cavitary lesions with incipient abscesses. She has had indolent fever, indolent white cell count. She seems to be responding to Flagyl with the newest orders being September 01, vancomycin since September 02. I spoke to radiology today. I wanted to see if doing a repeat CT scan of the chest would help us in our decision making. If she was developing abscesses that were getting worse, she may be candidate for a drainage procedure. She has made it clear to myself and to the palliative pet care assistant that she does not want to leave this hospital to go to the [facility]. While she is willing to undergo treatment here, she does not want to be transferred for specialty care. Radiology felt that we should wait. As long as she is stable with regards to white cell count, fever, blood pressure, we do not need to do anything right now. Wait another week or 2 or if she becomes unstable. There postulating that if she does have an abscess that they will need to drain, they would like it to be with a more hardened cystic wall than right now. Plan: Continue with iv Vanco, iv Fluconazole, and iv Flagyl . Cont probiotic Up-to-date suggest that total antibiotic course can be as long as 3 or 4 weeks. She can be transition to oral antibiotics when she has no fever, no elevated white cell count. If she spikes more fevers, or white cell count becomes elevated again, I will repeat the CT. Trying to evaluate her for any type of procedure that can be done with our radiologist in view of the fact that she does not want to be transferred to the [facility]. (4) Fall at home Impression: At admission, patient had a very bruised and mildly swollen left upper eyelid. That was the fall from several days previously. Then she rolled out of bed 2 days later, landing on her left side she thinks. She complained of L sided pain s/p GLF and neck pain s/p GLF, in the ED. There is a H/o recent L hip fracture s/p ORIF. Her CSpine CT showed : DJD C1-C2, C5-C6, C6-C7 She had orthostatic vital signs at admission. Her gabapentin dose was started at 100 mg TID not 300 mg TID. later adjusted to BID. She has received up-and-down IV fluids this hospitalization. Plan: PT and OT rehab need to continue (5) Severe protein calorie malnutrition The patient's BMI is only 17. She is cachectic, had temporal wasting and sunken eyes and diffuse muscle wasting and loss of subcutaneous fat. She screened for excessive weight loss, done by our [employer]: Has had nutritional intake of less than 50% for 2 weeks or more, and has lost 12% of her weight in 6 months. Her labs showed a LDL of 48 and an HDL of 18, and she was on a statin at home. Statin was stopped. I started her on omega-3 tablet daily to increase her HDL She is on a liberalized diet with [employer] to take her meal choices. We learned she is always a picky eater, mostly eats cottage cheese and canned peach. Remeron was started several days ago. Over the last 2 days she has had better appetite, 09/03 she ate 75% (was charted). She was seen by palliative care on September 04 and they recommended Decadron 2 mg p. o. daily. This was to stimulate her appetite. Plan: Cont Remeron And Decadron, started to stimulate appetite. Appreciate suggestions from Palliative bank consultant (6) UTI Assessment/Plan: She had urinary retention earlier and needed straight cath. On 08/19 a Becerra catheter was inserted due to high volume on bladder scan. During that insertion she had white purulent urine drained. A urinalysis was sent off and this had many WBCs and many bacteria. That urine culture is growing nothing (probably because she had a partially treated UTI, from already being on cefepime for her pneumonia) Since 09/02 the RN reported she has 4 pustules on her labia majora and shower o rdered; She finally agreed and had a shower 09/03. Plan: She has been on iv antibx for the HCAP, then for the cavitary lung infection Better hygiene was discussed with her (7) Acute urinary retention Assessment/Plan: She had urinary retention since admission and needed straight caths. On 08/19 a Becerra catheter was inserted due to high volume on bladder scan. She has been started on Flomax On bladder training by clamping Becerra for 2 hours every 4 hours and becerra to be discontinued 09/04. Order not done so I have dc'd becerra today. (8) COPD with hypoxia Assessment/Plan: The HCAP pneumoniacaused her to wheeze. She was only clearing her throat, she seemed to be too weak to cough up phlegm On Xopenex, Montelukast and added Solu-Medrol. On 08/25, patient's Solu-Medrol was DC'd Plan: Continue as needed meds and suppl O2 (9) Paroxysmal Atrial flutter Assessment/Plan: The patient had A-fibflutter with RVR on 08/17, when she was at her worst resp distress. Then she had Paroxysms of atrial flutter with 2-1 and 3-1 block for several days. Troponins went from 7 to 20, likely rate-related demand ischemia. Her BNP was mildly elevated 208>> 246 She had an Echocardiogram done here on 08/15, which showed normal LV size and function and normal RV size and function When we saw junctional heather rhythm, Cardizem CD dose was adjusted This patient likrly has tachy-bradycardia syndrome. Plan: Cont present meds (10) Junctional bradycardia Assessment/Plan: On 08/19 the patient went into recurrent, brief episodes of junctional bradycardia with ventr rates of 10-30. She was transferred to the ICU. I put her on an Aminophylline continuous IV drip, to give her the desired side effect of a hig her heart rate, for 24 hours. Her labs were checked when she was transferred to the ICU. Her potassium was 5.5 which may have been the cause of the junctional bradycardia. The troponins were checked and EKG was done and these did not reveal an acute CO. Her Echo had been done earlier this admission which showed normal chamber sizes and normal LV and RV contractility. Suspected that this patient may have tachybradycardia syndrome. (11) Sinus pause Several days ago, the patient had a 4.8-second pause, came out of A-fib then, and went into sinus rhythm Metoprolol decreased. Suspect that this patient has tachy-bradycardia syndrome. She may be a candidtae for placing a pacemaker and EP/cardiology consultation
[2022-09-05] MEDS: ENOXAPARIN 40 MG/0.4 ML SYRINGE SUBQ SCH (08:17)
[2022-09-05] MEDS: FAMOTIDINE 20 MG TABLET PO SCH ×2 (08:17→20:44)
[2022-09-05] MEDS: FLUCONAZOLE 200 MG/100 ML 100 ML IV SCH (08:17)
[2022-09-05] MEDS: METOPROLOL TARTRATE 25 MG TABLET PO SCH ×2 (08:17→20:44)
[2022-09-05] MEDS: dexAMETHasone 4 MG TABLET PO SCH (08:18)
[2022-09-05] MEDS: guaiFENesin 600 MG TABLET PO SCH ×2 (08:19→20:44)
[2022-09-05] MEDS: SACCHAROMYCES BOULARDII 250 MG CAPSULE PO SCH ×2 (08:19→16:58)
[2022-09-05] MEDS: OMEGA-3 ACID ETHYL ESTERS 1 GM CAPSULE PO SCH ×2 (08:19→16:58)
[2022-09-05] MEDS: MULTIVITAMIN W/MINERALS TABLET PO SCH (08:19)
[2022-09-05] MEDS: ASPIRIN CHEW 81 MG TABLET PO SCH (08:19)
[2022-09-05] MEDS: TAMSULOSIN 0.4 MG CAPSULE PO SCH (08:19)
[2022-09-05] MEDS: SODIUM CHLORIDE FLUSH 0.9% 10 ML SYRINGE IVP PRN ×2 (12:29→14:58)
[2022-09-05] MEDS: GABAPENTIN 100 MG CAPSULE PO SCH ×2 (12:32→20:44)
--- NOTE | 2022-09-05 14:18 | CONSULTATION NOTE ---
Palliative Care Follow Up - Referral Referring Provider: Dr. Claire Leija Time of Visit: 11:30-12:45 Referral setting: Hospitalized patient Referral Reason: Goals of Care - Information Sources Records reviewed: RN notes reviewed, Previous records reviewed History/Review of Systems obtained from: Patient, Family (follow up with Gabe/GINNA) Exam limitations: No limitations (mildly [place]) - History of Present Illness Update Brief HPI Update: This is an 81-year-old woman who has been hospitalized since 08/13/2022, with a long complicated course. Please see HPI on 09/04/2022. Patient unfortunately has developed a cavitary lesion in her lung. She had an originally renal and responding to her antibiotic, her WBCs are up a little bit today at 11.6. She still continues with persistent fatigue, anorexia, but does perceive she is getting somewhat stronger. Her biggest complaint is she does not get any sleep at night, reports her and every hour hour and a half, feels if she got better rest she would be better in the morning. She does acknowledge that she is quite weak, this is actually been a decline since her original hip fracture and pneumonia back in May, she feels like she has been getting up in the chair and is hopeful she will continue to improve. But feels today her nighttime sleep has been interfering. Did follow-up with hospitalist, concern regarding patient's goals in the context of needing further intervention regarding her infection and cavitary lesion, patient is quite frail and most likely would not tolerate any aggressive intervention/surgery. Goal of today's conversation is to further talk about transition planning and also values and wishes if she were to continue to decline. Past Medical History: Hypertension, atrial flutter of atrial fibrillation arrhythmias, asthma, COPD, pneumonia, shortness of breath, CVA, kidney stones, a anorexia, fatigue, chronic back pain Social History - Living Situation Living arrangement: At home Living Situation: With friend(s) (adopted granddaughter Ben with apergers; Mariana "adopted" but not legally, does shopping, bills, sets up medications; errands not personal care; friend Keyshawn comes daily to help with meals, laundry- has known her for 50 years) Support System: Patient has quite a complicated family "push". I am trying to tease out a realistic caregiving plan. She does have her elderly friend Yolis who has been helping but cannot do, personal care, and friend/family at home that do errands and shopping etc. All are in agreement patient's needs are more than current setting can support. The plan is at this time, is her daughter Susan is coming after October 04, to live with her. Patient and family, believe she would do well with SNF stay to bridge care plan and regain some of her strength and independence. Medications/Allergies - Medications Active Medication List: Active Medications Acetaminophen (Acetaminophen 325 Mg Tablet) 650 mg PO Q4HR PRN PRN Reason: FEVER > 100.5 F Aspirin (Aspirin Chew 81 Mg Tablet) 81 mg PO DAILY [facility] Last Admin: 09/05/22 08:19 Dose: 81 mg Dexamethasone (Dexamethasone 4 Mg Tablet) 2 mg PO DAILY [facility] Stop: 09/09/22 00:01 Last Admin: 09/05/22 08:18 Dose: 2 mg Enoxaparin Sodium (Enoxaparin 40 Mg/0.4 Ml Syringe) 40 mg SUBQ DAILY [facility] Last Admin: 09/05/22 08:17 Dose: 40 mg Famotidine (Famotidine 20 Mg Tablet) 20 mg PO BID [facility] Last Admin: 09/05/22 08:17 Dose: 20 mg Gabapentin (Gabapentin 100 Mg Capsule) 100 mg PO 1300,2000 [facility] Last Admin: 09/05/22 12:32 Dose: 100 mg Guaifenesin (Guaifenesin 600 Mg Tablet) 600 mg PO BID [facility] Last Admin: 09/05/22 08:19 Dose: 600 mg Fluconazole (Diflucan 200 Mg/100 Ml) 100 mls @ 100 mls/hr IV DAILY [facility] Last Infusion: 09/05/22 10:28 Dose: Infused Metronidazole (Flagyl 500 Mg/100 Ml) 500 mg in 100 mls @ 100 mls/hr IV Q8H [facility] Last Infusion: 09/05/22 11:31 Dose: Infused Vancomycin HCl 1.25 gm/ Sodium (Chloride) 250 mls @ 167 mls/hr IV Q24H [facility] Last Infusion: 09/04/22 19:39 Dose: Infused Levalbuterol HCl (Levalbuterol 1.25 Mg/3 Ml Neb) 1.25 mg INH Q4H PRN PRN Reason: Shortness of Air/Wheezing Levalbuterol HCl (Levalbuterol 1.25 Mg/3 Ml Neb) 1.25 mg INH RTQID [facility] Last Admin: 09/05/22 11:10 Dose: 1.25 mg Metoprolol Tartrate (Metoprolol Tartrate 25 Mg Tablet) 12.5 mg PO BID [facility] Last Admin: 09/05/22 08:17 Dose: 12.5 mg Mirtazapine (Mirtazapine 15 Mg Tablet) 15 mg PO QPM [facility] Last Admin: 09/04/22 20:48 Dose: 15 mg Montelukast Sodium (Montelukast 10 Mg Tablet) 10 mg PO QPM [facility] Last Admin: 09/04/22 20:49 Dose: 10 mg Multi-Ingredient Ointment (Zinc Oxide 20% Oint 30 Gm Tube) 1 applic TOP PRN PRN PRN Reason: Skin Care Last Admin: 09/03/22 20:25 Dose: 1 applic Multivitamins/Minerals (Multivitamin W/Minerals Tablet) 1 tab PO DAILYWM [facility] Last Admin: 09/05/22 08:19 Dose: 1 tab [id number] Ethyl Esters ([place]-3 Acid Ethyl Esters 1 Gm Capsule) 1 gm PO BIDWM [facility] Last Admin: 09/05/22 08:19 Dose: 1 gm Ondansetron HCl (Ondansetron Odt 4 Mg Tablet) 4 mg TL Q6HR PRN PRN Reason: Nausea / Vomiting Ondansetron HCl (Ondansetron 4 Mg/2 Ml Vial) 4 mg IVP Q6HR PRN PRN Reason: Nausea / Vomiting Saccharomyces Boulardii (Saccharomyces Boulardii 250 Mg Capsule) 250 mg PO BIDWM [facility] Last Admin: 09/05/22 08:19 Dose: 250 mg Sodium Chloride (Sodium Chloride Flush 0.9% 10 Ml Syringe) 10 ml IVP PRN PRN PRN Reason: NEEDED PER PROVIDER ORDERS Last Admin: 09/05/22 12:29 Dose: 10 ml Sodium Chloride (Sodium Chloride Flush 0.9% 10 Ml Syringe) 10 ml IVP 0100,0900,1700 [facility] Last Admin: 09/05/22 08:17 Dose: 10 ml Tamsulosin HCl (Tamsulosin 0.4 Mg Capsule) 0.4 mg PO DAILY [facility] Last Admin: 09/05/22 08:19 Dose: 0.4 mg Albuterol Sulfate [Proventil Hfa Inhaler] 2 puffs INH Q4H PRN 03/21/19 Fluticasone/Salmeterol [Advair 500-50 Diskus] 1 each IH BID 03/21/19 Furosemide [Lasix] 60 mg PO DAILY 03/21/19 Potassium Chloride [Klor-Con 10] 20 meq PO DAILY 03/21/19 dilTIAZem HCL [Diltiazem ER] 240 mg PO DAILY 03/21/19 Gabapentin [Neurontin] 300 mg PO TID 08/14/22 Simvastatin [Zocor] 20 mg PO QPM 08/14/22 Tamsulosin [Flomax] 0.4 mg PO DAILY 08/14/22 Tiotropium [place] [Spiriva Respimat] 2 puffs INH BID 08/14/22 - Allergies Allergies/Adverse Reactions: Allergies Allergy/AdvReac Type Severity Reaction Status Date / Time Penicillins Allergy Intermediate Hives, Verified 07/06/22 14:29 swelling aspirin Allergy Mild Rash Verified 07/06/22 14:29 piroxicam [From Feldene] Allergy Mild Rash Verified 07/06/22 14:29 meperidine [From Demerol] Allergy Unknown Verified 07/06/22 14:29 Review of Systems - Constitutional Constitutional: reports: Fatigue, Weakness, Poor appetite, Weight loss - Ears, Nose & Throat Ears, Nose & Throat: reports: Dentures, Dry mouth - Cardiovascular Cardiovascular: reports: Irregular heart rate. denies: Chest pain - Respiratory Respiratory: reports: Cough, Wheezing, SOB with exertion. denies: Pleuritic pain - Gastrointestinal Gastrointestinal: reports: Diarrhea, Poor appetite, Early satiety - Genitourinary Genitourinary: reports: Other (has catheter for retention) - Musculoskeletal Musculoskeletal: reports: Back pain, Muscle aches, Stiffness, Limited range of motion, Muscle weakness, Transfer issues - Neurological Neurological: reports: General weakness, Memory problems (per her report) - Psychiatric Psychiatric: reports: Depression, Anxiety - Hematologic/Lymphatic Hematologic/Lymph: reports: Anemia, Recurrent infections (pneumonia/bronchitis) Physical Exam - Vital Signs Vital Signs: Vital Signs x48h Temp Pulse Pulse Resp BP BP Pulse Ox 09/05/22 11:26 36.5 C 78 22 142/76 H 93 09/05/22 11:10 88 18 09/05/22 08:17 150/57 H 09/05/22 07:46 36.5 C 70 20 150/57 H 95 09/05/22 07:12 84 20 09/05/22 05:29 36.5 C 81 20 159/88 H 96 O2 Flow Rate 09/05/22 11:26 2 09/05/22 11:10 2 09/05/22 08:17 09/05/22 07:46 2 09/05/22 07:12 2 09/05/22 05:29 2.5 - Physical Exam General Appearance: positive: No acute distress, Alert, Anxious, Cachetic Eyes Bilateral: positive: Other (mild periorbital edema) Neck: positive: Trachea midline Cardiovascular: positive: Irregular Respiratory: positive: No respiratory distress (except with transfers) Abdomen: positive: Soft Skin: positive: Pallor, Dryness Neurologic/Psychiatric: positive: Oriented x3, Weakness, Flat affect Palliative Care - POLST Patient has POLST: Yes POLST Status: DNR, Selective Treatment Pain: Pain improved, Location (back; prison has been on gabapentin; feels currently controlled) Tiredness/Fatigue: Severe (7-10) Drowsiness/Sedation: Moderate (4-6) Nausea: None Anorexia: Moderate (4-6) (feels better this am; reports ate breakfast today; to tired from night not sleeping to get in chair for lunch) Dyspnea: Mild (1-3) Depression: Mild (1-3) Anxiety: Mild (1-3) Feelings of wellbeing/Perceived Quality of Life: Poor, Worsening Sleep: Sleeps poorly (reports too many interuptions) Performance Status: Patient has been up in chair for meals, working with PT/OT when feeling better, this has been fluctuating along with symptoms with medical condition. - Palliative Care Discussion: Met with patient regarding information and identification of goals regarding seriousness of her illness, particularly in the context of her cavitary lesion of lung. We discussed the seriousness of this diagnosis, currently she is being treated, with the hope that she will improve, we will do a time trial of at least 2 to 3 days, but after that may have to make some more difficult decisions. In the context of this patient is quite clear she does not want to have further aggressive surgeries/transfer of care, or interventions, her choice would be to focus more on comfort. She does understand in the context of this would continue most likely to lead to her demise, she would prefer to be at home with friends and family. She does understand currently plan is for her to go to SNF. She does understand this is to help her progress as well as help with her transition home to be successful. She is expecting her daughter to come live with her after 04 October, feeling this would be of benefit for both of them. Daughter recently lost her this last year, and has been a caregiver prior to.Patient does understand she is quite fragile, she feels she has improved as far as strength, and is hoping for the best. She very much misses "home" and friends and family. She did have a nice visit with her granddaughter Maryann, she was somewhat put out as the kids could not come in, we reviewed at this point she is on her droplet precautions for the safety of staff and visitors, reminded her she was not this ill last time she was in the hospital as she said they were able to visit last time. Spoke with Gabe, did find document, does put him as executor of the last will and testament, but not as DPOA. Patient had confirmed she did want her son and grandson to be DPOA's for her. Gabe is willing to accept this responsibility and is grateful that we can facilitate this document being taken care of. He was surprised but pleased that she had done a DO NOT RESUSCITATE, will send this along with the DPOA when completed for his records and support. Discussed above concerns regarding patient's fragility, goals to hope for the best, but no further aggressive intervention, and focus on comfort if takes a "turn for the worst". He would want this for her as well, reports she has had experience of similar decision making when she had to make these decisions for her as well. Gabe is not aware of patient's finances, would request the [facility] move forward with a [facility] application, particularly if needs to have placement or caregivers, does understand most likely would not be able to afford caregiving help. Did send him the caregiving list from [employer] [facility]. Did speak with Susan, Susan does not feel patient should return home without family or paid caregiver, does not feel her current situation is safe. Does have concerns regarding her caregiver/housemate Mariana, particularly since she has access to her finances. Does think she may be taking advantage of, encouraged to call APS if she has concerns regarding safety or financial misconduct. Results - Lab Results Lab results reviewed: Yes Fish Bones: 09/05/22 04:10 09/05/22 04:10 Lab and Imaging Results: Lab Results x24hrs 09/05/22 09/05/22 09/05/22 Range/Units 04:10 04:10 04:10 WBC 11.6 H (4.8-10.8) x10^3/uL RBC 3.38 L (4.20-5.40) 10^6/uL Hgb 9.2 L (12.0-16.0) g/dL Hct 31.6 L (37.0-47.0) % MCV 93.5 (81.0-99.0) fL MCH 27.2 (27.0-31.0) pg MCHC 29.1 L (32.0-36.0) g/dL RDW 14.6 (12.0-15.0) % Plt Count 271 (130-450) 10^3/uL MPV 9.4 (7.9-10.8) fL Neut # (Auto) 10.0 H (1.5-6.6) 10^3/uL Lymph # (Auto) 1.0 L (1.5-3.5) 10^3/uL Banner # (Auto) 0.4 (0.0-1.0) 10^3/uL Eos # (Auto) 0.0 (0.0-0.7) 10^3/uL Baso # (Auto) 0.1 (0.0-0.1) 10^3/uL Absolute Nucleated RBC 0.00 x10^3/uL Nucleated RBC % 0.0 /100WBC Sodium 141 (135-145) mmol/L Potassium 3.9 (3.5-5.0) mmol/L Chloride 97 L (101-111) mmol/L Carbon Dioxide 39 H* (21-32) mmol/L Anion Gap 5.0 L (6-13) BUN 8 (6-20) mg/dL Creatinine 0.5 (0.4-1.0) mg/dL Estimated GFR (MDRD) 118 (>89) Glucose 119 H (70-100) mg/dL Calcium 7.8 L (8.5-10.3) mg/dL Last Dose Date 09/04/22 Last Dose Time 1938 Vancomycin Trough 23.8 H (10.0-20.0) ug/mL Impression and Recommendations - Palliative Care Impression: This is a 81-year-old woman who presents with multiple comorbidities, and acute illness of concern of a cavitary lesion of the lung, pneumonia, and acute chronic respiratory failure. Patient continues with fluctuating cardiac status. She has actually had functional decline over several months, worsened because of acute hip fracture and pneumonia resulting in stay at [facility]. Patient continues with weight loss, anorexia, and worsening fatigue. Patient discussion today focused on concerns regarding the seriousness of her current condition, teasing out goals of care, and priorities. Follow-up with family regarding patient's current state and goal to transition to SNF with long-term hope to return to home setting with increased support. Palliative care working with patient and family to continue define goals of care, though short-term and long- term plan, and anticipatory guidance. Recommendations/Counseling Done: 1. Anorexia. This most likely multifactorial, including acute illness, history of poor intake, taste changes and early satiety. She reports she did eat better this morning, patient is on Remeron 08/21 we will continue this, have initiated dexamethasone 2 mg a.m., patient reports she is feeling hungry this morning. 2. Generalized weakness. Patient feels severely impacted by nighttime sleeplessness, perceives this is with frequent interruptions. Did speak with hospitalist, will try to arrange less interruptions. Patient quite pleased with this goal. Patient understanding with and goal is to be more independent and able to manage with less caregiving support, along these lines, is willing and understanding of need for SNF placement, if qualifies. Did discuss with Susan, who is coming in September, would recommend working on "Plan B" in case patient has to transition home to try and identify other caregiving resources. Gabe would like MANUFACTURING ENGINEERING DIRECTOR to assist patient in making [facility] application as soon as possible. 3. Advance care planning. After much exploration, there is not a valid DPOA in place, patient has designated her son Gabe as well as her grandson is secondary, is willing to sign and fill out new form. Will have MANUFACTURING ENGINEERING DIRECTOR assist with completion and notary. In the context of values, patient has signed a POLST with DNR/DNI and selective treatments. She would not want to have further aggressive surgery, or transfer, we had talked about a time trial to see how she does over the next 2 to 3 days, if patient were to continue to decline or worsen, patient would like to be at home with friends and family. She does understand needs an intermediary plan, and willing to look at SNF placement. 75 minutes spent with review of chart, consultation with hospitalist, BLADE, family conference with children separately, Elfego, [id number] with patient regarding eliciting further goals of care and values.
[2022-09-05 15:18] LABS: VANCOMYCIN,TROUGH 17.9 ug/mL (10.0-20.0)
[2022-09-05] MEDS: VANCOMYCIN INJ 1.25 GM in SODIUM CHLORIDE 0.9% 250 ML IV SCH (17:38)
[2022-09-05] MEDS: MONTELUKAST 10 MG TABLET PO SCH (20:44)
[2022-09-05] MEDS: MIRTAZAPINE 15 MG TABLET PO SCH (20:44)
[2022-09-06] MEDS: metroNIDAZOLE 500 MG/100 ML 500 MG/100 ML BAG IV SCH ×2 (03:26→11:47)
[2022-09-06 06:08] LABS: BASOPHILS # (AUTO) 0.1 10^3/uL (0.0-0.1); BASOPHILS % (AUTO) 0.7 %; EOSINOPHILS # (AUTO) 0.1 10^3/uL (0.0-0.7); EOSINOPHILS % (AUTO) 0.5 %; HCT - HEMATOCRIT 29.8 % (37.0-47.0); HGB - HEMOGLOBIN 8.7 g/dL (12.0-16.0); LYMPHOCYTES # (AUTO) 1.5 10^3/uL (1.5-3.5); LYMPHOCYTES % (AUTO) 15.8 %; MEAN CORPUSCULAR HEMOGLOBIN 27.2 pg (27.0-31.0); MEAN CORPUSCULAR HGB CONC 29.2 g/dL (32.0-36.0); MEAN CORPUSCULAR VOLUME 93.1 fL (81.0-99.0); MEAN PLATELET VOLUME 9.7 fL (7.9-10.8); MONOCYTES # (AUTO) 0.4 10^3/uL (0.0-1.0); MONOCYTES % (AUTO) 3.6 %; NEUTROPHILS # (AUTO) 7.7 10^3/uL (1.5-6.6); PLT - PLATELET COUNT 274 10^3/uL (130-450); RED CELL DISTRIBUTION WIDTH 14.8 % (12.0-15.0); WHITE BLOOD COUNT 9.7 x10^3/uL (4.8-10.8)
[2022-09-06 06:18] LABS: CALCIUM 7.9 mg/dL (8.5-10.3); CREATININE 0.5 mg/dL (0.4-1.0); POTASSIUM 3.7 mmol/L (3.5-5.0)
[2022-09-06] MEDS: MULTIVITAMIN W/MINERALS TABLET PO SCH (07:58)
[2022-09-06] MEDS: METOPROLOL TARTRATE 25 MG TABLET PO SCH (08:01)
[2022-09-06] MEDS: ASPIRIN CHEW 81 MG TABLET PO SCH (08:03)
[2022-09-06] MEDS: guaiFENesin 600 MG TABLET PO SCH (08:03)
[2022-09-06] MEDS: FAMOTIDINE 20 MG TABLET PO SCH (08:03)
[2022-09-06] MEDS: dexAMETHasone 4 MG TABLET PO SCH (08:04)
[2022-09-06] MEDS: SACCHAROMYCES BOULARDII 250 MG CAPSULE PO SCH (08:04)
[2022-09-06] MEDS: OMEGA-3 ACID ETHYL ESTERS 1 GM CAPSULE PO SCH (08:05)
[2022-09-06] MEDS: TAMSULOSIN 0.4 MG CAPSULE PO SCH (08:05)
[2022-09-06] MEDS: FLUCONAZOLE 200 MG/100 ML 100 ML IV SCH (08:06)
[2022-09-06] MEDS: SODIUM CHLORIDE FLUSH 0.9% 10 ML SYRINGE IVP SCH (08:11)
[2022-09-06] MEDS: ENOXAPARIN 40 MG/0.4 ML SYRINGE SUBQ SCH (08:13)
--- NOTE | 2022-09-06 11:37 | Discharge Plan ---
"Discharge Plan for SNF / [facility] - Discharge Plan And Transition Orders Problem Reviewed?: Yes Disposition: 03 SNF DC/Xfer Condition: Fair Allergies and Adverse Reactions: Allergies Allergy/AdvReac Type Severity Reaction Status Date / Time Penicillins Allergy Intermediate Hives, Verified 07/06/22 14:29 swelling aspirin Allergy Mild Rash Verified 07/06/22 14:29 piroxicam [From Feldene] Allergy Mild Rash Verified 07/06/22 14:29 meperidine [From Demerol] Allergy Unknown Verified 07/06/22 14:29 Health Concerns: 81-year-old female who has COPD and is on home oxygen at 2 to 3 L/min and lives with her daughter. She presented as weakness and a fall. Weakness was predominantly left-sided. She was found to have pneumonia and was hypoxic with a fever and elevated white cell count. That was treated but then she developed A-fib/a flutter and was started on multiple medications and those medications were adjusted to control her rate. She was consistently lethargic, always sleepy, not eating well. Continued work-up showed progression of her pneumonia on CT and now she has cavitary lesions where we suspect that she has anaerobic infection. Antibiotics were broadened to antifungal, anaerobic and MRSA. Once that happened the patient was much more awake, alert. She still has problems with trying to eat on a regular basis. She has been started on Remeron and Decadron for appetite stimulus. She had very poor body hygiene when she was admitted. She stated that she had not had a shower in over a year. She had some labial lesions. Plan of Treatment: 1. Antibiotic treatment will need to continue for possibly up to 4 weeks total. Her change in antibiotic therapy was approximately August 31 and I would start assessing her for response by the end of August. That would include white cell count, and level of hypoxia as well as followup CT chest. She is allergic to penicillin so we cannot use Augmentin. In the hospital she was on Flagyl and Diflucan and vancomycin. In the outpatient setting she will be on moxifloxacin since up-to-date recommended for patients who cannot take Augmentin. Clindamycin was considered but since it has a higher risk of C. difficile infection has not been used. Moxifloxacin, clindamycin, can be interchanged. If the patient does not seem to be doing well, Flagyl can be added. Home medications were gabapentin 300 mg p.o. 3 times daily. That has been decreased to 100 mg at 1:00 PM and 8 PM. She was also on diltiazem CD2 240 mg a day. That has been discontinued and she is now on metoprolol 12.5 twice daily because of tachy/bradycardia syndrome Home Lasix was discontinued due to overdiuresis. She was on 60 mg a day. Weight on a regular basis, check BMP and BNP to see when you should resume her Lasix. She is allergic to penicillin so we cannot use Augmentin. In the hospital she was on Flagyl and Diflucan and vancomycin. In the outpatient setting she will be on moxifloxacin since up-to-date recommended for patients who cannot take Augmentin. 2. Radiology does not feel that she needs imaging study at this point in time. However they would recommend follow-up imaging in 2 weeks to see if the cavitary lesions are diminishing on their own or will she need to progress to a VATS procedure or an interventional radiology drainage procedure. 3. It has been impressed upon her that she must cooperate with PT and OT to get stronger. Her desire is to get home again. She lives with a caregiver. She has about 5 children. But she has had 17 foster kids. The DPOA is her second and third children. Her oldest child ALPHONSO, not a formal DPOA yet, says that he will step up to the plate and do the DPOA. 4. Palliative care consultation was ordered and done. The patient should continue to see palliative care on a semiregular basis. This will help establish goals of care in the context of whether this patient improves or does not improve with her overall health status. Care Goals: The patient stated goal is to return to her own home. There is a caregiver that lives there. Goals are to be independent with going from supine to sitting and sitting to standing with a stand and pivot to chair. Assessment: Patient is alert, slightly deaf, but states today that she knows that she has to work with PT and OT to then get stronger to go home. - SNF / [facility] Transition Orders Admit to (Facility): [facility] Under the care of (Name): [facility] Discharge Diagnosis: 1. Acute on chronic respiratory failure with hypoxia 2. Healthcare associated pneumonia on admission, now resolved 3. COPD with exacerbation 4. UTI 5. Tachybrady syndrome with junctional bradycardia as well as atrial flutter with rapid ventricular response 6. Generalized weakness 7. Recurrent urinary retention requiring Paz catheter twice. Current Paz catheter resumed September 05. 8. Fall at home 9. Severe protein calorie malnutrition Medicare Certification Statement: I certify that [facility] alf care is medically necessary on a continuing basis for any of the conditions for which she/he is receiving care during hospitalization. Notify PCP of admission and forward orders to primary provider for signature. Weight on admission and: Weekly Call PCP immediately if weight increases by: 2 kg Other Notification Orders: Call PCP immediately if patient develops dyspnea, chest pain/tightness or edema. House Bowel Program: Yes Additional Bowel Program Orders: If no BM after 2 days, nurse may give M.O.M. 30ml PO PRN and/or ducolax Supp 1 [place] and/or LALO 250mg P.O., and/or senna 1-2 tabs PO. On day 3 nurse may give repeat above order until residents constipation is resolved. Annual Influenza Vaccine (between Nov 17 and June 16): Yes Oxygen Orders: 2 L nasal cannula. Maintaining O2 sats above 88% Lab Tests or X-ray Orders: CBC and CMP on September 13 Medication Orders: PLEASE REFER TO THE DISCHARGE MEDICATION LIST. Insulin Orders?: No - Medications New Prescriptions: Moxifloxacin [Avelox] 400 mg PO DAILY #14 tablet - Diet Type: Geriatric Texture: Regular Liquids: Thin May have monthly special meal: Yes - Therapies | Activity Therapy: Evaluation | Treat if indicated: PT, OT, Swallowing / ST Rehabilitation Potential: Return to independent living Activity: Activity as Tolerated Weight Bearing: Full Weight Assistance Devices: Wheelchair, Walker Follow Up: NGUYEN Zaragoza"
[2022-09-06] MEDS: GABAPENTIN 100 MG CAPSULE PO SCH (12:00)
--- NOTE | 2022-09-06 12:21 | DISCHARGE SUMMARY ---
Discharge Summary Admit Date: 08/13/22 Discharge Date: 09/06/22 Discharging Provider: Valerie Arce MD Primary Care Provider: NGUYEN Zaragoza Code Status: Do Not Attempt Resuscitation Condition at Discharge: Fair Discharge Disposition: SNF DC/Xfer - DIAGNOSES Discharge Diagnoses with Status of Each Condition: 1. Acute on chronic respiratory failure with hypoxia 2. Healthcare associated pneumonia on admission, now resolved 3. COPD with exacerbation 4. UTI 5. Tachybrady syndrome with junctional bradycardia as well as atrial flutter with rapid ventricular response 6. Generalized weakness 7. Recurrent urinary retention requiring Paz catheter twice. Current Paz catheter resumed September 05. 8. Fall at home 9. Severe protein calorie malnutrition - HPI History of Present Illness: Telemedicine admit history: Patient is in [place]. Physician is in [place]. Patient's daughter, Renate Avilez is at bedside. (Ms Avilez is a caregiver that livs with patient and is considered a close friend and "adopted daughter"). 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 Pt lives with her daughter and granddaughter, who are both busy, but help her out. On , pt went to bathroom, then leaned over for her O2 and reached to far and went off-balance and fell onto her L side, hitting her head on the cabinet. She was down for a few seconds before her daughter came and called for help and she and a friend were able to get pt up and helped her to a chair in the living room. Pt has stayed in the living room since then. She c/o L sided weakness, L sided pain and fatigue and has not left the living room since , sleeping on the couch or in the chair. Her new O2 cannister was initially upstairs, so she was using 5L NC O2 instead of 6L NC O2 for a couple of nights. Since the fall, pt has c/o weakness, fatigue and has not even walked to the bathroom, and she has been soiling herself and sitting in her soiled clothes. She has also been sleeping a lot. This is not like her. No CP, no change in SOB, no cough, no dysuria, no change in BM, no abdo pain. Pt says that she has L sided weakness b/c of her DJD pain. She c/o neck pain from her DJD. In the ER, Glc 121, WBC 12.6, Hgb 11.8, CO2 37,CK 16. CSpine CT: DJD C1-C2, C5-C6, C6-C7. CT Head: chronic microvascular ischemic changes; NAD Pt was given IVF in the ER. - Past Medical History Cardiovascular: reports: Hypertension Respiratory: reports: Asthma, COPD, Pneumonia, Shortness of breath, Other Neuro: reports: None, CVA Endocrine/Autoimmune: reports: None GI: reports: None ELECTRICIAN CONTROL EQUIPMENT: reports: None : reports: Kidney stones HEENT: reports: None Psych: reports: None Musculoskeletal: reports: Chronic back pain Derm: reports: None MRSA Hx?: No - CONSULTS | PROCEDURES Procedures: Multiple chest x-rays during her stay. She went from unilateral pneumonia to bilateral pneumonia and subtle cavitary lesions enlarged. Last chest x-ray September 01 showed a stable cavitary lesion in the right midlung zone. Stable bibasilar airspace opacities. Small effusions. Mediastinal contour normal. Chest CT done August 29. Serial chest films were reviewed starting from in early July 20 chest x-ray. There was no airspace consolidation on the first films and then subsequent development of cavitary pneumonia. In retrospect the cavity was present early on August 13. On the CT it is felt that the overall area of consolidation has increased in size over time. There is a thick walled cavitary lesion with debris inside the lesion. The largest cavity is in the posterior right upper lobe and measures 4.5 cm. There is a second cavitary lesion in the superior segment of the right upper lobe measuring 2.6 cm. Adjacent airspace consolidation predominantly in the posterior segment of the right upper lobe, periphery of the superior segment of the right lower lobe. Left apical pulmonary nodule. Mild to moderate emphysematous changes. Mild bilateral pleural effusion with compressive a lower atelectasis. Heart size is normal. Severe coronary artery calcification. Brain MRI August 15 with age-related volume loss and moderate small vessel ischemic change. No acute intracranial problem. Carotid Doppler has less than 50% stenosis of the right and left internal carotid artery. Antegrade blood flow is normal within the right and left vertebral arteries. Hip/pelvis x-ray on August 13 has left proximal femoral fracture fixation hardware that was present on hip film August 08. No new osseous abnormality. Cervical spine CT August 13 without any evidence of acute C-spine injury. Focal degenerative changes. Head CT August 13 without acute intracranial process. Age-appropriate volume loss and changes of chronic microvascular ischemia August 14 echocardiogram has normal left ventricular size. Wall thickness normal. Ejection fraction normal at 60 to 65% without regional wall motion abnormalities. Right ventricle size, systolic function normal. Atrial sizes are normal. Calcification of aortic valve but no stenosis. Trace mitral regurg. Mild tricuspid regurg. Mildly abnormal right heart pressure with RVSP at rest 47 mmHg. Small pericardial effusion located near the right ventricle. Lipomatous hypertrophy of the anterior atrial septum. Blood cultures from August 17 are negative for growth August 19 urine culture without gross August 20 sputum culture with E. coli, MRSA. - HOSPITAL COURSE Hospital Course: The patient was admitted and started on empiric antibiotic therapy taking into account her allergy to penicillin. She initially responded in that oxygen requirements were starting to decline, white cell count was starting to decline but then she became more hypoxic and required even more oxygen. She was high as 8 L/min. Was requiring oxy mask. Repeat chest x-ray showed progression of pneumonia. CT of chest now shows that has cavitary lesions with debris inside. She is felt to have probable aspiration with incipient abscesses that may or may not progress. Antibiotic therapy was broadened and she improved and became more awake and alert. She has no fever, no white cell count. The day before discharge I discussed managment with radiology that we should redo a repeat CT of the chest but they demured. . They feel that as long as the patient is without symptoms, a repeat CT should be done 2 to [address]. At that time the cavitary lesions could be assessed for drainage or VATS if necessary. Antibiotic coverage was broadened from the usual azithromycin and Rocephin to vancomycin and cefepime. Probiotic in the form of Florastor was con tinued throughout. Medicines such as steroids, Mucinex, Singulair were also added to help with her COPD. At discharge she does not have a fever, nor does she have an elevated white cell count. Her main issue at discharge is her generalized deconditioning and weakness. Antibiotic therapy should continue for the cavitary lesions for possibly up to 3 weeks. She is allergic to penicillin and IV antibiotics were changed to moxifloxacin. In [address] should probably be done to see if the cavitary lesions are regressing or progressing. If they are progressing a discussion should be had with regards to drainage procedures. We did obtain palliative care consultation while the patient was in the hospital. We would recommend that she be seen by palliative care. She also went into atrial fibrillation with RVR. She goes in and out of A-fib. Atrial flutter and atrial fibrillation was treated with increasing doses of Cardizem CD. But she began having episodes of junctional bradycardia and as such Cardizem CD was reduced in dosing then discontinued and her rate is controlled with metoprolol. [id number] score is 1 so she is not anticoagulated and only on aspirin. Prolonged bedrest and illness resulted in moderate generalized weakness. She is considered deconditioned at home but is able to stand, pivot and transfer. Able to take care of her own toileting needs. At the hospital she is a max assist. Work-up for generalized weakness done including a brain MRI and s he has no evidence of old stroke or recent stroke. She does have a history of polio which may be the reason why she has a slight leg weakness on the left greater than right. Patient is a very picky eater. At home she eats mainly cottage cheese and peaches. She likes cooked asparagus and chocolate pudding. During her stay here nutrition services worked with her to improve her appetite, improve her calories. And she was started on Remeron and Decadron. Her caregiver asked that we contact neurology. [facility] neurology on-call was called and we went over the work-up with regards to her weakness, falls at home, lack of strength and they felt that due diligence have been pe rformed on this patient and no new recommendations were offered. Initially her son, Sin, wanted her to go home with caregivers. But he found it difficult to get together the caregivers. As such she is going to be discharged to a fpc facility for rehab. The goal is to get her strong enough to get her back to her baseline status and return to home with her usual caregiver. Gabapentin from home was reduced from 300 mg 3 times daily to 100 mg 3 times daily and then 100 mg twice daily. PT and OT worked with this patient to improve her strength and she has waxing and waning cooperation. But she is willing to do it. There was quite a bit of confusion as to who is in charge for this ezio lady. She has 5 children, and 17 foster children. A current caregiver lives with her and she fondly calls her current caregiver her "my adopted daughter". This is Renate Avilez. But Ms. Avilez has not a DPOA. She is not formally adopted and has no legal standing. Son Sin has been our point person and has agreed to be DPOA. On examination she is an alert, oriented elderly female. Easily fatigued with long conversations and multiple people coming in and out of her room. She said that she just so tired she wants us to let her sleep at night. A diffuse halo of jaffe hair, dark caterpillar eyebrows, glasses, mild hirsutism. Mildly deaf. Shotty neck adenopathy with no JVD. Supple. Coarse upper airway sounds from congestion with prolonged and exhalation phase of breathing but no wheezing, use of accessory muscles, rhonchi or crackles. She goes in and out of A-fib. She was sinus for about a day and went back into A-fib last night. Irregular rate and rhythm with no systolic murmur. The abdomen is soft, hypoactive bowel sounds, nontender. Skin has multiple areas of bruising and ecchymosis from blood draws and IVs. Trace edema around her ankles. Alert, oriented to person place and time. Can follow commands. Slight left leg weakness in comparison to right leg weakness. Physical therapy shows her to be dependent for bathing task. She requires contact-guard assist for sit to stand and stand to pivot transfer. She can use a front wheel walker and get in a chair and needs minimal cueing for hand placement. She has significant functional fatigue and poor motivation that makes it difficult for her to participate in skilled intervention. This was addressed with her. She states that she understands that she needs to work with PT and OT to get stronger to get home. She just says that there are some days that are harder than most. She demonstrates good functional mobility skills and needs extensive assistance for ADLs. She would benefit from OT, PT. We recommend a raised toilet seat, bedside commode, grab bars, shower and bath chair, and a front wheel walker. Greater than 30 minutes was spent coordinating discharge - ALLERGIES Allergies/Adverse Reactions: Allergies Allergy/AdvReac Type Severity Reaction Status Date / Time Penicillins Allergy Intermediate Hives, Verified 07/06/22 14:29 swelling aspirin Allergy Mild Rash Verified 07/06/22 14:29 piroxicam [From Feldene] Allergy Mild Rash Verified 07/06/22 14:29 meperidine [From Demerol] Allergy Unknown Verified 07/06/22 14:29 - MEDICATIONS Home Medications: Ambulatory Orders Medication Instructions Recorded Confirmed Albuterol Sulfate [Proventil Hfa 2 puffs INH Q4H PRN 03/21/19 08/14/22 Inhaler] Fluticasone/Salmeterol [Advair 1 each IH BID 03/21/19 08/14/22 500-50 Diskus] Tiotropium [place] [Spiriva 2 puffs INH BID 08/14/22 08/14/22 Respimat] Acetaminophen [Tylenol] 650 mg PO Q4HR PRN tab 09/06/22 Aspirin Chewable [[place] 81 mg PO DAILY tab 09/06/22 Aspirin] Famotidine [Pepcid] 20 mg PO BID tab 09/06/22 Gabapentin [Neurontin] 100 mg PO 1300,2000 cap 09/06/22 Metoprolol Tartrate [Lopressor] 12.5 mg PO BID tab 09/06/22 Mirtazapine [Remeron] 15 mg PO QPM tab 09/06/22 Montelukast [Singulair] 10 mg PO QPM tab 09/06/22 Moxifloxacin [Avelox] 400 mg PO DAILY #14 tablet 09/06/22 Multivitamin W/Minerals [Theragran 1 tab PO DAILYWM tab 09/06/22 M] [place]-3 Acid Ethyl Esters [Lovaza] 1 gm PO BIDWM cap 09/06/22 Saccharomyces Boulardii [Florastor] 250 mg PO BIDWM cap 09/06/22 Simvastatin [Zocor] 20 mg PO QPM #0 09/06/22 08/14/22 Tamsulosin [Flomax] 0.4 mg PO DAILY #0 09/06/22 08/14/22 Zinc Oxide 20% Oint [Zinc Oxide] 1 applic TOP PRN PRN each 09/06/22 dexAMETHasone [Decadron] 2 mg PO DAILY tab 09/06/22 guaiFENesin [Mucinex] 600 mg PO BID tab 09/06/22 - LABS Result Diagrams: 09/06/22 05:51 09/06/22 05:51
[2022-09-06 14:32] VITALS: BP 138/75
[2022-09-06] MEDS: LEVALBUTEROL 1.25 MG/3 ML NEB INH SCH (14:34)
--- NOTE | 2022-09-06 15:41 | PROVIDER PROGRESS NOTE ---
Assessment/Plan - Problem List (1) Sinus pause Assessment/Plan: (1) Sinus pause Assessment/Plan: On 08/29, the patient had a 4.8-second pause, came out of A-fib with that and went into sinus rhythm I decreased the metoprolol from 37.5 twice daily down to 12.5 twice daily. There were no further pauses seen Plan: Remain on telemetry I suspect this patient has tachy-bradycardia syndrome. I will discuss with her if she has any desire to be considered for transfer for placing a pacemaker and EP/cardiology consultation (2) Acute and chronic respiratory failure with hypoxia Assessment/Plan: Assessment/Plan: Patient was more hypoxic several days ago and work-up showed that she has a new pneumonia found on CXR on her 3rd day here, and antibx were started after cx obtained. She was in new atrial flutter with RVR then too. All labs were reviewed. Troponins went from 7 to 20. I ordered her to be on oxy mask when she is asleep because she is a mouth breather Plan: Continue supplemental O2, target saturation is > 88% (3) Cavitary lesion of lung Assessment/Plan: Her CXR on 08/17 showed a new RUL pneumonia. We obtained blood cx and sputum cx We had her on antibx to cover a Healthcare-associated pneumonia: using IV vancomycin, and IV Cefepime. August 22, 2022-sputum culture grew E. coli so we DC'd vancomycin and kept her cefepime and added Flagyl for possibility of aspiration pneumonia August 23, 2022-sputum culture then grew MRSA so we added back IV vancomycin August 24, 2022 per pharmacy recommendations switching from cefepime to Rocephin which sensitivities of the culture show that is appropriate for the E. coli and will continue with IV vancomycin continue with IV Flagyl which was added for possibility of aspiration pneumonia also August 25, 2022-patient seemed more alert & responsive and we continued that antibiotic combination regimen for at least a total of 7 days, since her sputum grew E. coli and MRSA August 28, 2022-patient was having increasing leukocytosis and is up to 33,000. Chest x-ray showed a suspected cavitary lesion in the right upper lung zone; differential included necrotizing pneumonia/aspiration pneumonia versus mass. The CT scan was done 08/28 and was read as having a cavitary lesion enlarging during her time here, which could be PNA from fungus vs bacteria Plan: Continue with iv Vanco and iv Fluconazole Will add an anti anaerobic antibiotic with iv Flagyl (4) Generalized weakness Assessment/Plan: The brain MRI showed only diffuse changes of atrophy, no evidence of old stroke or recent stroke. The patient does carry a diagnosis of polio, which may have given L>R leg weakness. On 08/17 her O2 sat was 83% at rest, while on n.c.so she was put boo oxymask. I ordered for patient to be put on suppl O2 via oxy mask whenever she is asleep or napping. She has been too tired to participate with rehab for several days On 08/18 I updated the visitors in the room, regarding her new pneumonia and her overall weakness. Renate confirmed that the pt has a very poor appetite and mostly eats cottage cheese and peaches, she also likes well cooked asparagus and chocolate pudding. Also that day Renate requested that I get a Neurology consult. On 08/18, I called and spoke to the Neurologist on-call, and reviewed the entire case, including the 2 falls at home. This Neurologist said that I had done due diligence for this patient, and had no new recommendations. On 08/19, after being transferred to the ICU, her RN informed me that a daughter named Susan called from the [facility]. Apparently Renate had called Susan. The pt's RN Jesse received permission from Tiffany to talk to Susan. Susan said that Renate is not her daughter and not even an adopted daughter but that the patient just lives with Renate. The patient has 7 children who are scattered all over the [facility]. I then called Renate again and asked whether she is the adopted daughter legally or verbally and Renate said she is "verbally" an adopted daughter. I then corrected Renate and said that legally she is just considered a friend, if there is no legal paperwork for adoption. Renate confirmed that there are many children and the closest is Sin who lives in [facility] and he was to come to visit the patient. On 08/20, at bedside was the "adopted granddaughter" who said she is also the "sister of Renate". When I remarked that Renate is not a blood relative to Edwarjerry, then she said she "feels like she is a sister to Renate, because they are so close". I told her that medical legally she is just considered a friend. I spoke to Social Work about these family interactions and ask Social Work to establish if there is the DPOA and who are all the people that we are allowed to speak with, about the pt. On 08/21, I updated her son Sin from [place], her biologic granddaughter Yvonne, the family friend Yolis, daughter Hortencia was on the phone, all others at bedside in her room. that medical legally if there is no one person designated as a DPOA, then all the current children (5 of 7 are alive), will need to agree on what we do, if the patient cannot make her own decisions (like she could not when she was obtunded and in junctional rhythm and was transferred to the ICU). Plan: Remain on lower gabapentin dose (300 mg tid was already decreased to 100 mg TID), and today I will decrease that to BID at 1300 & 2000 PT and OT to keep working with her, since she is deconditioned and felt too weak to do PT, the last 3 days. Our PT was recommending SNF for rehab. (5) Fall at home Impression: Patient has a very bruised and mildly swollen left upper eyelid. That was the fall from several days ago. Following that she rolled out of bed 2 days later, landing on her left side she thinks. She complained of L sided pain s/p GLF and neck pain s/p GLF, in the ED. H/o recent L hip fracture s/p ORIF Her CSpine CT showed : DJD C1-C2, C5-C6, C6-C7 Her orthostatic vital signs reveal volume depletion, when checked the past several days. She received iv fluids for 2 days I restarted Gabapentin at a lower dose of 100 mg TID not 300 mg TID She received 2 days of IV fluids, approximately 2 L positive in fluid balance. Chest x-ray today 08/17/2022 shows mild blunting of her costophrenic angles Plan: Since the patient has had recent orthostasis, I did not yet restarted her Lasix. Her IV fluids were stopped when BNP was noted to be elevated but I am resuming iv fluids today due to her poor po intake, D5W at 83.33 cc/hr. Remain on lower gabapentin dose (300 mg tid was decreased to 100 mg TID), and today I will decrease that to BID at 1300 & 2000 PT and OT rehab needs to continue (6) Severe protein calorie malnutrition The patient's BMI is only 17. She is cachectic, has temporal wasting and sunken eyes and diffuse muscle wasting and loss of subcutaneous fat. She screened for excessive weight loss, done by our Screen Printing Machine Operator: Has had nutritional intake of less than 50% for 2 weeks or more, and has lost 12% of her weight in 6 months. Her labs showed a LDL of 48 and an HDL of 18, and she was on a statin at home. I ordered a more liberalized diet with Screen Printing Machine Operator to take her meal choices I stopped her statin and will plan discharge off the statin. I started her on omega-3 tablet daily to increase her HDL On 08/18 I spoke to the daughter who was visiting in her room, who confirmed that her mother has a very poor appetite and mostly eats cottage cheese and peaches, she also likes well cooked asparagus and chocolate pudding. On 08/21, when I asked what protein she eats, the family at bedside told me that she also likes peanut butter and hard-boiled eggs. On 08/25, patient had improved appetite and ate her food better than she has in the recent past. On 08/26 thru no, she is again only eating bites all day Plan: I have added Boost to be given with all meals Cont new Remeron, started to stimulate appetite. (7) UTI Assessment/Plan: For the last several days she has had urinary retention and needed straight cath. On 08/19 a Paz catheter was inserted due to high volume on bladder scan. During that insertion she had white purulent urine drained. A urinalysis was sent off and this had many WBCs and many bacteria. That urine culture is growing nothing (probably because she had a partially treated UTI, from already being on cefepime for her pneumonia) All labs were reviewed. Her white count lucia, I suspect the persistently elevated WBC was initially from this newly found UTI Plan: I have kept her on her iv antibx which were started for the HCAP (8) Acute urinary retention Assessment/Plan: For the last several nights the patient has had high residual on bladder scanning, showing urinary retention of 400-600. Straight caths were needed. I ordered a Paz insertion because of her severe shortness of breath even at rest, plus this urinary retention. The patient is on a bladder medication which has been continued here I suspect this acute UTI is what caused the urinary retention Plan: Cont Paz for now (9) COPD with hypoxia Assessment/Plan: This new pneumonia had caused her to wheeze. She now has a COPD exacerbation. She still has wet phlegm in upper airway, and she only clears her throat, she seems to be too weak to cough it up. I started Montelukast q pm Because of very poor air movement on exam, I added Solu-Medrol 40 mg tid. August 25, 2022-patient's Solu-Medrol was DC'd Plan: Cont Xopenex nebulized bronchodilators, Montelukast Cont Mucinex and Solumedrol I also ordered chest PT TID, or using a flutter valve, for expectoration, if she can tolerate it (10) Paroxysmal Atrial flutter Assessment/Plan: The patient went into new A-fib spontaneously converted back to sinus rhythm, then went into atrial flutter with RVR on 08/17, when she was at her worst resp distress. After her morning Cardizem dose, she converted to NSR. Then she had Paroxysms of atrial flutter with 2-1 and 3-1 block for several days. Troponins went from 7 to 20, likely rate-related demand ischemia. Her BNP was mildly elevated 208>> 246 Earlier, she was already having short runs of PSVT, at rates of 115. She had an Echocardiogram done her 08/15, which showed normal LV size and function and normal RV size and function Plan: I will put a hold on her Cardizem CD, because of the junctional heather rhythm.When heart rate was 100-140 so Cardizem CD will be resumed but not at 240 mg but at 120 mg. August 26, 2022-patient did have RVR atrial fibrillation this a.m. patient was given IV metoprolol 5 mg and initiated on metoprolol 25 mg p.o. twice daily Plan: This patient may have tachybradycardia syndrome. 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 She was transferred to the ICU. External pacer patches were put on as a precaution and the pacemaker device was moved into her ICU room, but she did not need to be externally paced. I put her on an Aminophylline continuous IV drip, to give her the desired side effect of a higher heart rate, for 24 hours Her labs were checked when she was transferred to the ICU. Her potassium was 5.5 which may have been the cause of the junctional bradycardia. The troponins were checked and EKG was done and these did not reveal an acute OK. Her Echo had been done earlier this admission which showed normal chamber sizes and normal LV and RV contractility. About 12 hours after the aminophylline was stopped, her rhythm was normal sinus at 70-80. Plan: I stopped the Cardizem CD temporarily. - Lab Result Fish Bone Diagrams: 09/06/22 05:51 09/06/22 05:51 Subjective - Subjective Nursing Reports: Other (Still mostly sleeping. Participates with PT ad OT one day, the next she is too tired to work with them, and refuses to get OOB for meals) Objective Vital Signs: Vital Signs - 24 hr 09/05/22 09/05/22 09/05/22 16:06 20:04 20:30 Temperature 36.4 C L 37.3 C Heart Rate 83 Heart Rate [ 98 97 Brachial] Heart Rate [ Monitoring electrodes] Respiratory 24 20 18 Rate Blood Pressure Blood Pressure 131/68 H 122/61 [Right Brachial artery] O2 Saturation 93 98 If not protocol 2 2 2 : Oxygen Flow, liters/minute 09/06/22 09/06/22 09/06/22 01:00 05:46 06:47 Temperature 36.5 C 36.4 C L Heart Rate Heart Rate [ Brachial] Heart Rate [ 83 91 Monitoring electrodes] Respiratory 16 20 Rate Blood Pressure Blood Pressure 95/72 123/76 [Right Brachial artery] O2 Saturation 94 97 If not protocol 2 2 2 : Oxygen Flow, liters/minute 09/06/22 09/06/22 09/06/22 08:01 08:34 13:00 Temperature 36.3 C L 36.5 C Heart Rate Heart Rate [ 82 86 Brachial] Heart Rate [ Monitoring electrodes] Respiratory 20 22 Rate Blood Pressure 127/66 Blood Pressure 116/69 138/75 H [Right Brachial artery] O2 Saturation 98 96 If not protocol 2 2 : Oxygen Flow, liters/minute Oxygen O2 Source Nasal cannula I&O (Last 24 Hrs): Intake and Output Totals x24h 09/04/22 09/05/22 09/06/22 23:59 23:59 23:59 Intake Total 1969 1350 220 Output Total 2150 0441 9595 Balance -406 -271 -8264 General: Other (Lethargic) HEENT: Mucous membr. moist/pink Neck: Supple Neuro: Alert, Other (Lethargic. Generalized weakness) Cardiovascular: No murmurs Respiratory: No respiratory distress (On O2 suppl. Has a very weak cough.) Abdomen: Soft Extremities: No clubbing, No edema - Results Results: Laboratory Results WBC 9.7 x10^3/uL (4.8-10.8) 09/06/22 05:51 RBC 3.20 10^6/uL (4.20-5.40) L 09/06/22 05:51 Hgb 8.7 g/dL (12.0-16.0) L 09/06/22 05:51 Hct 29.8 % (37.0-47.0) L 09/06/22 05:51 MCV 93.1 fL (81.0-99.0) 09/06/22 05:51 MCH 27.2 pg (27.0-31.0) 09/06/22 05:51 MCHC 29.2 g/dL (32.0-36.0) L 09/06/22 05:51 RDW 14.8 % (12.0-15.0) 09/06/22 05:51 Plt Count 274 10^3/uL (130-450) 09/06/22 05:51 MPV 9.7 fL (7.9-10.8) 09/06/22 05:51 Neut # (Auto) 7.7 10^3/uL (1.5-6.6) H 09/06/22 05:51 Lymph # (Auto) 1.5 10^3/uL (1.5-3.5) 09/06/22 05:51 [place] # (Auto) 0.4 10^3/uL (0.0-1.0) 09/06/22 05:51 Eos # (Auto) 0.1 10^3/uL (0.0-0.7) 09/06/22 05:51 Baso # (Auto) 0.1 10^3/uL (0.0-0.1) 09/06/22 05:51 Absolute Nucleated RBC 0.00 x10^3/uL 09/06/22 05:51 Total Counted 100 08/29/22 06:05 Band Neuts % (Manual) 0 % (0-10) 08/29/22 06:05 Reactive Lymphs % (Man) 2 % 08/21/22 07:41 Abnorm Lymph % (Manual) 0 % 08/29/22 06:05 Metamyelocytes % 1 % (-0) H 08/26/22 08:09 Nucleated RBC % 0.0 /100WBC 09/06/22 05:51 Neutrophils # (Manual) 20.4 10^3/uL (1.5-6.6) H 08/29/22 06:05 Lymphocytes # (Manual) 1.9 10^3/uL (1.5-3.5) 08/29/22 06:05 Monocytes # (Manual) 1.2 10^3/uL (0.0-1.0) H 08/29/22 06:05 Eosinophils # (Manual) 0.2 10^3/uL (0-0.7) 08/29/22 06:05 Basophils # (Manual) 0.0 10^3/uL (0-0.1) 08/29/22 06:05 Differential Comment MANUAL DIFFERENTIAL 08/29/22 06:05 Manual Slide Review Indicated 08/28/22 07:45 WBC Morphology NORMAL APPEARANCE (NORMAL) 08/29/22 06:05 Platelet Estimate NORMAL (130-450,000) (NORMAL) 08/29/22 06:05 Platelet Morphology NORMAL APPEARANCE (NORMAL) 08/29/22 06:05 RBC Morph Micro Appear 1+ ANISOCYTOSIS (NORMAL) 08/29/22 06:05 Bld Gas Analysis Time 93208/29/22 09:25 Sample Site RIGHT RADIAL 08/29/22 09:25 ABG pH 7.40 (7.35-7.45) 08/29/22 09:25 ABG pCO2 64 mmHg (34-45) H* 08/29/22 09:25 ABG pO2 67 mmHg (80-100) L 08/29/22 09:25 ABG HCO3 39.0 mmol/L (22.0-26.0) H 08/29/22 09:25 ABG Total CO2 41.0 MMOL/L (21.0-29.0) H* 08/29/22 09:25 ABG O2 Saturation 94 % (94-98) 08/29/22 09:25 ABG Base Excess 11.8 mmol/L (-2.0-3.0) H 08/29/22 09:25 Migue Test POSITIVE 08/29/22 09:25 VBG pH 7.453 (7.31-7.41) H 08/30/22 05:15 Ionized Calcium 1.02 mmol/L (1.15-1.33) L 08/30/22 05:15 O2 Delivery Device OXYMASK 08/29/22 09:25 O2 Liters/Min 2.00 LPM 08/29/22 09:25 FiO2 44.00 08/17/22 05:40 Sodium 143 mmol/L (135-145) 09/06/22 05:51 Potassium 3.7 mmol/L (3.5-5.0) 09/06/22 05:51 Chloride 99 mmol/L (101-111) L 09/06/22 05:51 Carbon Dioxide 41 mmol/L (21-32) H* 09/06/22 05:51 Anion Gap 3.0 (6-13) L 09/06/22 05:51 BUN 10 mg/dL (6-20) 09/06/22 05:51 Creatinine 0.5 mg/dL (0.4-1.0) 09/06/22 05:51 Estimated GFR (MDRD) 118 (>89) 09/06/22 05:51 Glucose 110 mg/dL (70-100) H 09/06/22 05:51 Calcium 7.9 mg/dL (8.5-10.3) L 09/06/22 05:51 Ionized Calcium YES 08/30/22 05:15 Phosphorus 2.6 mg/dL (2.5-4.6) 09/02/22 04:23 Magnesium 2.1 mg/dL (1.7-2.8) 09/02/22 04:23 Total Bilirubin 0.5 mg/dL (0.2-1.0) 08/25/22 07:15 AST 22 IU/L (10-42) 08/25/22 07:15 ALT 39 IU/L (10-60) 08/25/22 07:15 Alkaline Phosphatase 82 IU/L (42-121) 08/25/22 07:15 Total Creatine Kinase 16 IU/L (22-269) L 08/13/22 16:15 Troponin I High Sens 9.8 ng/L (2.3-14.8) 08/19/22 17:49 B-Natriuretic Peptide 246 pg/mL (5-100) H 08/18/22 08:05 Total Protein 5.5 g/dL (6.7-8.2) L 08/25/22 07:15 Albumin 2.1 g/dL (3.2-5.5) L 08/25/22 07:15 Globulin 3.4 g/dL (2.1-4.2) 08/25/22 07:15 Albumin/Globulin Ratio 0.6 (1.0-2.2) L 08/25/22 07:15 Triglycerides 68 mg/dL (-149) 08/14/22 05:04 Cholesterol 60 mg/dL (-199) 08/14/22 05:04 LDL Cholesterol, Calc 28 mg/dL (-129) 08/14/22 05:04 VLDL Cholesterol 14 mg/dL 08/14/22 05:04 HDL Cholesterol 18 mg/dL (60-) L 08/14/22 05:04 LDL/HDL Ratio 1.6 (<4.4) 08/14/22 05:04 Cholesterol/HDL Ratio 3.3 (<4.4) 08/14/22 05:04 Urine Color YELLOW 08/29/22 03:30 Urine Clarity CLEAR (CLEAR) 08/29/22 03:30 Urine pH 6.5 PH (5.0-7.5) 08/29/22 03:30 Ur Specific [place] 1.010 (1.002-1.030) 08/29/22 03:30 Urine Protein 30 mg/dL (NEGATIVE) H 08/29/22 03:30 Urine Glucose (UA) NEGATIVE mg/dL (NEGATIVE) 08/29/22 03:30 Urine Ketones NEGATIVE mg/dL (NEGATIVE) 08/29/22 03:30 Urine Occult Blood NEGATIVE (NEGATIVE) 08/29/22 03:30 Urine Nitrite NEGATIVE (NEGATIVE) 08/29/22 03:30 Urine Bilirubin NEGATIVE (NEGATIVE) 08/29/22 03:30 Urine Urobilinogen 0.2 (NORMAL) E.U./dL (NORMAL) 08/29/22 03:30 Ur Leukocyte Esterase NEGATIVE (NEGATIVE) 08/29/22 03:30 Urine RBC 0-5 /HPF (0-5) 08/29/22 03:30 Urine WBC 0-3 /HPF (0-5) 08/29/22 03:30 Urine WBC Clumps Cancelled 08/19/22 10:40 Ur Epithelial Cells Cancelled 08/19/22 10:40 Ur Squamous Epith Cells NONE SEEN (<= Few) 08/29/22 03:30 Urine Crystals Cancelled 08/19/22 10:40 Amorphous Sediment Cancelled 08/19/22 10:40 Urine Bacteria Rare /HPF (None Seen) 08/29/22 03:30 Urine Casts Cancelled 08/19/22 10:40 Urine Starch Cancelled 08/19/22 10:40 Urine Mucus Cancelled 08/19/22 10:40 Urine Trichomonas Cancelled 08/19/22 10:40 Urine Yeast Cancelled 08/19/22 10:40 Urine Sperm Cancelled 08/19/22 10:40 Ur Oval Fat Bodies Cancelled 08/19/22 10:40 Ur Microscopic Review NOT INDICATED 08/13/22 17:52 Urine Culture Comments NOT INDICATED 08/29/22 03:30 Nasal Screen MRSA (PCR) NEGATIVE (NEGATIVE) 08/19/22 16:35 Last Dose Date 09-05-2022 09/05/22 20:40 Last Dose Time 200709/05/22 20:40 Vancomycin Peak 37.4 ug/mL (20.0-40.0) 09/05/22 20:40 Vancomycin Trough 17.9 ug/mL (10.0-20.0) 09/05/22 14:50 SARS-CoV-2 (PCR) NOT DETECTED 08/18/22 08:43 - Procedures Procedures: Procedures EXCISION OF CECUM, ENDO (03/24/19) EXCISION OF SIGMOID COLON, ENDO (03/24/19) EXCISION OF TRANSVERSE COLON, ENDO (03/24/19)
== END 2022-09-06 14:00 | DRG 193 ==
LOC: EDUNIT# → ED 15:45 → MS2 19:43 → OBSVTOIN 08-14 09:14 → ICU 08-19 16:01 → MS2 08-21 17:55
PROVIDERS: ADMIT Internal Medicine; ATTEND Specialist
PROC: 02HV33Z Insertion of Infusion Device into Superior Vena Cava, Percutaneous Approach (ICD-10-PCS; principal; 2022-09-01)
DX: J18.9 Pneumonia, unspecified organism (principal); E43 Unspecified severe protein-calorie malnutrition; J96.21 Acute and chronic respiratory failure with hypoxia; J44.9 Chronic obstructive pulmonary disease, unspecified; D72.829 Elevated white blood cell count, unspecified; N39.0 Urinary tract infection, site not specified; E86.0 Dehydration; Z68.1 Body mass index [BMI] 19.9 or less, adult; J90 Pleural effusion, not elsewhere classified; E87.3 Alkalosis; I69.911 Memory deficit following unspecified cerebrovascular disease; I48.92 Unspecified atrial flutter; W18.30XA Fall on same level, unspecified, initial encounter; I47.1 Supraventricular tachycardia; R53.83 Other fatigue; J43.9 Emphysema, unspecified; J98.4 Other disorders of lung; I49.5 Sick sinus syndrome; R53.1 Weakness; I10 Essential (primary) hypertension; N20.0 Calculus of kidney; R32 Unspecified urinary incontinence; I48.91 Unspecified atrial fibrillation; L68.0 Hirsutism; H91.90 Unspecified hearing loss, unspecified ear; R15.9 Full incontinence of feces; M54.2 Cervicalgia; R29.898 Other symptoms and signs involving the musculoskeletal system; Z51.5 Encounter for palliative care; R33.9 Retention of urine, unspecified; R62.7 Adult failure to thrive; Z66 Do not resuscitate; R63.0 Anorexia; S00.12XA Contusion of left eyelid and periocular area, initial encounter; Y92.002 Bathroom of unspecified non-institutional (private) residence as the place of occurrence of the external cause; W18.39XA Other fall on same level, initial encounter; R79.89 Other specified abnormal findings of blood chemistry; I95.1 Orthostatic hypotension; Z91.81 History of falling; I27.20 Pulmonary hypertension, unspecified; R60.0 Localized edema; Z79.82 Long term (current) use of aspirin; Z99.81 Dependence on supplemental oxygen; I69.811 Memory deficit following other cerebrovascular disease; Z88.0 Allergy status to penicillin; Z86.12 Personal history of poliomyelitis; I44.1 Atrioventricular block, second degree; B95.62 Methicillin resistant Staphylococcus aureus infection as the cause of diseases classified elsewhere; B96.20 Unspecified Escherichia coli [E. coli] as the cause of diseases classified elsewhere; I25.10 Atherosclerotic heart disease of native coronary artery without angina pectoris; R58 Hemorrhage, not elsewhere classified
CPT/HCPCS: 36415; 36600; 70450; 70551; 71045; 71260; 72125; 73502; 80048; 80051; 80053; 80061; 80202; 81001; 81003; 82310; 82330; 82550; 82803; 83735; 83880; 84100; 84132; 84484; 85025; 85027; 87040; 87070; 87077; 87086; 87150; 87181; 87205; 87635; 93005; 93041; 93306; 93880; 94640; 97110; 97162; 97166; 97530; 97535; 99284; 99285; A9270; C1751; G0378; J1650; J3370; J3490; J7626; J8540; Q9967; 83721; 94668

== ENCOUNTER 2022-09-16 08:00 | Outpatient (CLI) | payer MEDICARE, OTHER ==
[2022-09-16 13:26] LABS: BASOPHILS # (AUTO) 0.1 10^3/uL (0.0-0.1); BASOPHILS % (AUTO) 0.9 %; EOSINOPHILS # (AUTO) 0.4 10^3/uL (0.0-0.7); EOSINOPHILS % (AUTO) 4.6 %; HCT - HEMATOCRIT 33.9 % (37.0-47.0); LYMPHOCYTES # (AUTO) 1.4 10^3/uL (1.5-3.5); LYMPHOCYTES % (AUTO) 15.1 %; MEAN CORPUSCULAR HEMOGLOBIN 27.9 pg (27.0-31.0); MEAN CORPUSCULAR HGB CONC 29.5 g/dL (32.0-36.0); MEAN CORPUSCULAR VOLUME 94.7 fL (81.0-99.0); MONOCYTES # (AUTO) 0.8 10^3/uL (0.0-1.0); MONOCYTES % (AUTO) 9.2 %; NEUTROPHILS # (AUTO) 6.3 10^3/uL (1.5-6.6); NEUTROPHILS % (AUTO) 69.5 %; PLT - PLATELET COUNT 490 10^3/uL (130-450); RED BLOOD COUNT 3.58 10^6/uL (4.20-5.40); RED CELL DISTRIBUTION WIDTH 15.9 % (12.0-15.0); WHITE BLOOD COUNT 9.1 x10^3/uL (4.8-10.8)
[2022-09-16 13:41] LABS: ALBUMIN 2.1 g/dL (3.2-5.5); ALBUMIN/GLOBULIN RATIO 0.7 (1.0-2.2); BILIRUBIN,TOTAL 0.3 mg/dL (0.2-1.0); CALCIUM 7.7 mg/dL (8.5-10.3); CREATININE 0.6 mg/dL (0.4-1.0); POTASSIUM 3.3 mmol/L (3.5-5.0)
== END 2022-09-16 08:01 | disposition home or self-care (01) ==
LOC: LAB.R 08:00
PROVIDERS: ATTEND Registered Nurse
DX: M62.81 Muscle weakness (generalized) (principal); I48.91 Unspecified atrial fibrillation; M62.59 Muscle wasting and atrophy, not elsewhere classified, multiple sites
CPT/HCPCS: 80053; 83880; 85025

== ENCOUNTER 2022-09-20 08:00 | Outpatient (CLI) | payer MEDICARE, OTHER ==
[2022-09-20 21:15] LABS: CALCIUM 7.9 mg/dL (8.5-10.3); CREATININE 0.6 mg/dL (0.4-1.0); POTASSIUM 3.6 mmol/L (3.5-5.0)
== END 2022-09-20 23:59 | disposition home or self-care (01) ==
LOC: LAB.R 08:00
DX: E87.8 Other disorders of electrolyte and fluid balance, not elsewhere classified (principal)
CPT/HCPCS: 80048

== ENCOUNTER 2022-11-16 11:44 | Outpatient (CLI) | payer MEDICARE, OTHER ==
[2022-11-16] MEDS ORDERED: iohexoL-300 100 ML VIAL IVP ONE (14:59)
--- NOTE | 2022-11-16 15:55 | CT Report ---
PROCEDURE: CHEST W INDICATIONS: CAVITARY PNEUMONIA CONTRAST: Omni 300 100ml TECHNIQUE: After the administration of intravenous contrast, 1 mm axial images were acquired from the pulmonary apices through the posterior costophrenic angles. Axial 5 mm soft tissue kernel reconstructions were performed as well as 8 mm axial MIP and coronal and sagittal 5 mm reformations. For radiation dose reduction, the following was used: automated exposure control, adjustment of mA and/or kV according to patient size. COMPARISON: 08/28/2022 a residual thick-walled cavity is present in the right upper lobe posterior se gment adjacent to the major fissure. The area of involvement previously measured 7.2 x 4.1 cm and pre vious image 110/4. On current image 86/3 it measures 3.0 x 1.8 cm. The previously present pleural-bas ed cavity in the superior segment of right lower lobe is also diminished in size. Multiple bibasilar bullous lesions are noted, with less prominent bullous lesions present in the bilateral upper lobes. The A previous left upper lobe pulmonary nodule is unchanged in size FINDINGS: Image quality: Excellent. Lungs and pleura: Underlying mild to moderate emphysematous change. Bibasilar bronchiectasis. Signifi cant interval improvement in cavitary pneumonia involving the posterior segment of right upper lobe a nd right lower lobe. The previously present left upper lobe pulmonary nodule is stable in size. It was previously describe d as 5 mm. It is actually 6 mm on both studies. Reference previous image 59/4 and current image 51/3. There is rapid interval development of a subpleural anterior left upper lobe nodule which measures 9 .6 mm on current image 87/3. It was not previously present. Additionally, in the right apex, there is a new pulmonary nodule on current image 40/3, which measures 7.0 mm. There is improvement in left ba silar atelectasis, now nearly completely resolved. There are has been resolution of bilateral pleural effusions. Mediastinum: Heart size is normal. No pericardial effusion. Severe coronary artery calcifications. No large vessel abnormality. No mediastinal adenopathy by size criteria. Chest wall and lower neck: Thyroid is unremarkable. No axillary or supraclavicular adenopathy by size . Bones: No aggressive osseous abnormality. Upper Abdomen: Unremarkable. IMPRESSION: 1. Significant interval improvement in a cavitary pneumonia involving the posterior segment of the ri ght upper lobe and, to a lesser extent, the superior segment of right lower lobe. 2. Stable 6 mm left apical pulmonary nodule. 3. Interval development of a new 7 mm right apical pulmonary nodule and a new 9.6 mm anterior left up per lobe pulmonary nodule. 4. Underlying emphysematous change. 5. Severe coronary artery calcifications. 6. Resolution of bilateral pleural effusions and near complete resolution of left basilar atelectasis . 7. Bibasilar bronchiectasis. Comment: Findings suggest a waxing and waning process. Consider fungal infection. The improvement in certain areas and worsening in other areas is not typical of a malignancy. Additional comment: Consider repeat CT in 2-3 months. Also recommend pulmonology consult if this has not yet occurred. Reviewed by: Zheng Verdin MD on 11/16/2022 3:54 PM PDT Approved by: Zheng Verdin MD on 11/16/2022 3:54 PM PDT Station ID: [id number]
== END 2022-11-16 11:45 | disposition home or self-care (01) ==
LOC: DI 11:44
PROVIDERS: ATTEND Physician Assistant Medical
DX: J18.8 Other pneumonia, unspecified organism (principal); R91.8 Other nonspecific abnormal finding of lung field; J43.9 Emphysema, unspecified; I25.10 Atherosclerotic heart disease of native coronary artery without angina pectoris; Z87.09 Personal history of other diseases of the respiratory system; J98.11 Atelectasis; J47.9 Bronchiectasis, uncomplicated
CPT/HCPCS: 71260; Q9967

== ENCOUNTER 2023-06-04 16:45 | Outpatient (CLI) | payer MEDICARE, OTHER ==
[2023-06-04 20:54] LABS: BASOPHILS # (AUTO) 0.1 10^3/uL (0.0-0.1); BASOPHILS % (AUTO) 0.4 %; EOSINOPHILS % (AUTO) 0.3 %; HCT - HEMATOCRIT 40.4 % (37.0-47.0); LYMPHOCYTES # (AUTO) 0.9 10^3/uL (1.5-3.5); MEAN CORPUSCULAR HEMOGLOBIN 29.5 pg (27.0-31.0); MEAN CORPUSCULAR HGB CONC 29.7 g/dL (32.0-36.0); MEAN CORPUSCULAR VOLUME 99.3 fL (81.0-99.0); MEAN PLATELET VOLUME 10.2 fL (7.9-10.8); MONOCYTES # (AUTO) 0.4 10^3/uL (0.0-1.0); MONOCYTES % (AUTO) 3.7 %; NEUTROPHILS # (AUTO) 10.2 10^3/uL (1.5-6.6); NEUTROPHILS % (AUTO) 86.7 %; PLT - PLATELET COUNT 332 10^3/uL (130-450); RED BLOOD COUNT 4.07 10^6/uL (4.20-5.40); RED CELL DISTRIBUTION WIDTH 12.3 % (12.0-15.0); WHITE BLOOD COUNT 11.7 x10^3/uL (4.8-10.8)
[2023-06-04 21:20] LABS: THYROID STIMULATING HORMONE 0.68 uIU/mL (0.34-5.60)
[2023-06-04 21:23] LABS: ALBUMIN 3.6 g/dL (3.2-5.5); ALBUMIN/GLOBULIN RATIO 1.6 (1.0-2.2); ALKALINE PHOSPHATASE 62 IU/L (42-121); ALT ALANINE AMINOTRANSFERASE 22 IU/L (10-60); AST ASPARTATE AMINOTRANSFERASE 16 IU/L (10-42); BILIRUBIN,TOTAL 0.3 mg/dL (0.2-1.0); BUN - BLOOD UREA NITROGEN 20 mg/dL (6-20); CALCIUM 9.8 mg/dL (8.5-10.3); CARBON DIOXIDE - CO2 37 mmol/L (21-32); CHLORIDE 101 mmol/L (101-111); CHOL/HDL RATIO 2.2 (<4.4); CHOLESTEROL 130 mg/dL; CREATININE 0.6 mg/dL (0.6-1.3); GFR - MDRD 95 (>89); GLUCOSE 134 mg/dL (74-104); HDL CHOLESTEROL 58 mg/dL; LDL CHOLESTEROL,CALCULATED 52 mg/dL; LDL/HDL RATIO 0.9 (<4.4); POTASSIUM 3.9 mmol/L (3.5-4.5); SODIUM 140 mmol/L (135-145); TOTAL PROTEIN 5.9 g/dL (6.4-8.9); TRIGLYCERIDES 98 mg/dL (48-352); VLDL CHOLESTEROL 20 mg/dL
== END 2023-06-04 16:46 | disposition home or self-care (01) ==
LOC: LAB.N 16:45
PROVIDERS: ATTEND Physician Assistant Medical
DX: E78.5 Hyperlipidemia, unspecified (principal); I48.0 Paroxysmal atrial fibrillation; I10 Essential (primary) hypertension
CPT/HCPCS: 36415; 80053; 80061; 83721; 84443; 85025

== ENCOUNTER 2023-11-03 12:09 | Outpatient (CLI) | payer MEDICARE, OTHER | END 2023-11-03 23:59 | disposition critical access hospital (66) | LOC: EMS 12:09 | DX: R07.1 Chest pain on breathing (principal); R06.02 Shortness of breath; Z99.81 Dependence on supplemental oxygen | CPT/HCPCS: A0425; A0427 ==

== ENCOUNTER 2023-11-03 12:32 | Emergency (ER) | payer MEDICARE, OTHER ==
--- NOTE | 2023-11-03 13:37 | ED Physician Documentation ---
History of Present Illness - Stated complaint Stated Complaint: FLANK PX - Chief complaint Chief Complaint: Back Pain - History obtained from History obtained from: Patient - History of Present Illness Timing: Prior to arrival - Additonal information Additional information: Patient is an 83-year-old female presenting to the emergency department with left-sided back pain. Patient presents from home where she lives with her daughter. Daughter notes that patient was complaining of 10 out of 10 left flank pain today. She notes this was the first time she reported any pain however patient notes symptoms have been going on for the past few days. Patient has past medical history of atrial flutter, history of abdominal aortic aneurysm, history of nephrolithiasis and history of COPD on 10 L at home. Patient continues to report mild left flank pain but received fentanyl 50 mcg in EMS truck on route here. 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 HEENT: None Psych: Eating disorder Musculoskeletal: Fatigue, Chronic back pain, Other Derm: None - Past Surgical History Past Surgical History: Yes Ortho: Hip replacement - Present Medications Home Medications: Ambulatory Orders Medication Instructions Recorded Confirmed Albuterol Sulfate [Proventil Hfa 2 puffs INH Q4H PRN 03/21/19 08/14/22 Inhaler] Fluticasone Propion/Salmeterol 1 each IH BID 03/21/19 08/14/22 [Advair 500-50 Diskus] Tiotropium [place] [Spiriva 2 puffs INH BID 08/14/22 08/14/22 Respimat] Acetaminophen [Tylenol] 650 mg PO Q4HR PRN tab 09/06/22 Aspirin Chewable [[place] 81 mg PO DAILY tab 09/06/22 Aspirin] Famotidine [Pepcid] 20 mg PO BID tab 09/06/22 Gabapentin [Neurontin] 100 mg PO 1300,2000 cap 09/06/22 Metoprolol Tartrate [Lopressor] 12.5 mg PO BID tab 09/06/22 Mirtazapine [Remeron] 15 mg PO QPM tab 09/06/22 Montelukast [Singulair] 10 mg PO QPM tab 09/06/22 Moxifloxacin [Avelox] 400 mg PO DAILY #14 tablet 09/06/22 Multivitamin W/Minerals [Theragran 1 tab PO DAILYWM tab 09/06/22 M] [place]-3 Acid Ethyl Esters [Lovaza] 1 gm PO BIDWM cap 09/06/22 Saccharomyces Boulardii [Florastor] 250 mg PO BIDWM cap 09/06/22 Simvastatin [Zocor] 20 mg PO QPM #0 09/06/22 08/14/22 Tamsulosin [Flomax] 0.4 mg PO DAILY #0 09/06/22 08/14/22 Zinc Oxide 20% Oint [Zinc Oxide] 1 applic TOP PRN PRN each 09/06/22 dexAMETHasone [Decadron] 2 mg PO DAILY tab 09/06/22 guaiFENesin [Mucinex] 600 mg PO BID tab 09/06/22 Fosfomycin Tromethamine 3 gm PO ONCE #1 packet 08/08/23 HYDROcod/ACETAM 5/325 [[place] 5/325] 1 - 2 ea PO Q6H PRN #14 tablet 08/08/23 HYDROcod/ACETAM 5/325 [[place] 5/325] 1 ea PO Q6H PRN #14 tablet 08/13/23 Cefdinir 300 mg PO BID #20 cap 11/03/23 - Allergies Allergies/Adverse Reactions: Allergies Allergy/AdvReac Type Severity Reaction Status Date / Time Penicillins Allergy Intermediate Hives, Verified 11/03/23 12:42 swelling aspirin Allergy Mild Rash Verified 11/03/23 12:42 piroxicam [From Feldene] Allergy Mild Rash Verified 11/03/23 12:42 meperidine [From Demerol] Allergy Unknown Verified 11/03/23 12:42 - Social History Does the pt smoke?: No Smoking Status: Never smoker Does the pt drink ETOH?: No Does the pt have substance abuse?: No - Immunizations Immunizations are current?: Yes - POLST Patient has POLST: Yes PD ED PE NORMAL - Vitals Vital signs reviewed: Yes - General General: Alert and oriented X 3 - HEENT HEENT: Atraumatic - Neck Neck: Supple, no meningeal sign - Cardiac Cardiac: RRR, No murmur, No gallop, No rub - Respiratory Respiratory: No respiratory distress, Clear bilaterally - Abdomen Abdomen: Normal bowel sounds - Female Female : Deferred Results - Vitals Vitals: Vital Signs - 24 hr 11/03/23 11/03/23 11/03/23 12:42 12:57 14:30 Temperature 36.4 C L Heart Rate 87 105 H 105 H Respiratory 22 22 22 Rate Blood Pressure 127/68 105/59 L O2 Saturation 90 L 92 94 If not protocol 5 5 : Oxygen Flow, liters/minute Oxygen O2 Source Nasal cannula - Labs Labs: Laboratory Tests 11/03/23 11/03/23 11/03/23 13:47 13:47 15:26 WBC 18.2 H RBC 4.15 L Hgb 12.3 Hct 41.1 MCV 99.0 MCH 29.6 MCHC 29.9 L RDW 12.6 Plt Count 308 MPV 9.3 Neut # (Auto) 15.6 H Lymph # (Auto) 1.1 L [place] # (Auto) 1.2 H Eos # (Auto) 0.1 Baso # (Auto) 0.1 Absolute Nucleated RBC 0.00 Nucleated RBC % 0.0 Sodium 145 Potassium 3.8 Chloride 96 L Carbon Dioxide > 45 H* Anion Gap TNP BUN 23 H Creatinine 0.7 Estimated GFR (MDRD) 80 L Glucose 146 H Calcium 9.4 Total Bilirubin 0.5 AST 14 ALT 17 Alkaline Phosphatase 61 Total Protein 5.8 L Albumin 3.5 Globulin 2.3 Albumin/Globulin Ratio 1.5 Lipase 16 Urine Color LIGHT YELLOW Urine Clarity HAZY Urine pH 7.0 Ur Specific [place] 1.010 Urine Protein NEGATIVE Urine Glucose (UA) NEGATIVE Urine Ketones NEGATIVE Urine Occult Blood NEGATIVE Urine Nitrite NEGATIVE Urine Bilirubin NEGATIVE Urine Urobilinogen 0.2 (NORMAL) Ur Leukocyte Esterase MODERATE H Urine RBC 0-5 Urine WBC 6-10 H Ur Squamous Epith Cells FEW Squamous Amorphous Sediment Moderate Urine Bacteria Moderate H Ur Microscopic Review INDICATED Urine Culture Comments INDICATED Nasal Adenovirus (PCR) Nasal B. parapertussis DNA (PCR) Nasal Coronavir 229E PCR Nasal Coronavir HKU1 PCR Nasal Coronavir NL63 PCR Nasal Coronavir OC43 PCR Nasal Enterovir/Rhinovir PCR Nasal Influenza B PCR Nasal Influenza A PCR Nasal Parainfluen 1 PCR Nasal Parainfluen 2 PCR Nasal Parainfluen 3 PCR Nasal Parainfluen 4 PCR Nasal RSV (PCR) Nasal B.pertussis DNA PCR Nasal C.pneumoniae (PCR) [place] Human Metapneumo PCR Nasal M.pneumoniae (PCR) Nasal SARS-CoV-2 (PCR) 11/03/23 15:43 WBC RBC Hgb Hct MCV MCH MCHC RDW Plt Count MPV Neut # (Auto) Lymph # (Auto) [place] # (Auto) Eos # (Auto) Baso # (Auto) Absolute Nucleated RBC Nucleated RBC % Sodium Potassium Chloride Carbon Dioxide Anion Gap BUN Creatinine Estimated GFR (MDRD) Glucose Calcium Total Bilirubin AST ALT Alkaline Phosphatase Total Protein Albumin Globulin Albumin/Globulin Ratio Lipase Urine Color Urine Clarity Urine pH Ur Specific [place] Urine Protein Urine Glucose (UA) Urine Ketones Urine Occult Blood Urine Nitrite Urine Bilirubin Urine Urobilinogen Ur Leukocyte Esterase Urine RBC Urine WBC Ur Squamous Epith Cells Amorphous Sediment Urine Bacteria Ur Microscopic Review Urine Culture Comments Nasal Adenovirus (PCR) NOT DETECTED Nasal B. parapertussis DNA (PCR) NOT DETECTED Nasal Coronavir 229E PCR NOT DETECTED Nasal Coronavir HKU1 PCR NOT DETECTED Nasal Coronavir NL63 PCR NOT DETECTED Nasal Coronavir OC43 PCR NOT DETECTED Nasal Enterovir/Rhinovir PCR NOT DETECTED Nasal Influenza B PCR NOT DETECTED Nasal Influenza A PCR NOT DETECTED Nasal Parainfluen 1 PCR NOT DETECTED Nasal Parainfluen 2 PCR NOT DETECTED Nasal Parainfluen 3 PCR NOT DETECTED Nasal Parainfluen 4 PCR NOT DETECTED Nasal RSV (PCR) NOT DETECTED Nasal B.pertussis DNA PCR NOT DETECTED Nasal C.pneumoniae (PCR) NOT DETECTED [place] Human Metapneumo PCR NOT DETECTED Nasal M.pneumoniae (PCR) NOT DETECTED Nasal SARS-CoV-2 (PCR) NOT DETECTED - Rads (name of study) CT abdomen pelvis Relevant Findings:: EMP independent interpretation of test PD Medical Decision Making - ED course Complexity details: reviewed old records, reviewed results, re-evaluated patient ED course: Patient is an 83-year-old female presenting to the emergency department with past medical history as listed above. Patient presents with left flank pain. Patient on arrival had been reporting severe left flank pain and is on 10 L nasal cannula oxygen for history of COPD at baseline. Patient brought in by EMS who gave her 50 of fentanyl and she notes no persistent pain since then. Patient denies any pain radiating to her abdomen and notes symptoms have been going on for a few days. Patient afebrile but slightly tachycardic on arrival. Initial EKG shows atrial fibrillation this is consistent with EKG obtained back in July. Patient is on metoprolol but no other blood thinners. Labs obtained here in emergency department showed mild leukocytosis of 18.2. Patient notably has CO2 level greater than 45 this is unchanged from previous but visit back in July most likely secondary to retained CO2 with history of severe COPD. Patient remained saturating well around 92% on 5 L nasal cannula here in the emergency department. CT abdomen pelvis obtained here in the emergency department to evaluate for possible kidney stone causing patient states symptoms given her history of urolithiasis. CT abdomen pelvis shows no acute findings. .There is no signs of diverticulitis no signs of abscess no signs of left-sided kidney stones or hydronephrosis. There is chronic stable findings of right-sided hydronephrosis but these are unchanged from previous imaging. Additionally incidental finding of 3.4 cm abdominal aortic aneurysm infrarenally. However this reviewed from previous imaging back in 2020 shows no increase in size of aneurysm. This is a stable findingUrine analysis does show leukocytes in the urine with moderate bacteria and greater than 6-10 leukocytes. Discussed with patient symptoms most likely secondary to pyelonephritis given her symptoms. Patient given a dose of ceftriaxone here in emergency department. She has a history of allergies to penicillins however discussed with patient low but not completely negative risk of using ceftriaxone with her history of penicillins. Patient agreeable with IV dose here and will try antibiotics at home for treatment of left-sided pyelonephritis. Patient given strict return precautions including fevers chills worsening pain nausea vomiting or any other new or worsening symptoms she should return to the emergency department. Patient understands and is agreeable with this plan. Departure - Departure Clinical Impression: Acute pain Condition: Good Instructions: Pyelonephritis Dc Comments: You were seen here in the emergency department for your left flank pain your workup here was stable your symptoms most likely secondary to pyelonephritis have started you on antibiotics for developing swelling rash difficulty swallow ing return to the emergency department. I have low suspicion that you would be allergic to this antibiotic given lower risk of penicillin to third-generation cephalosporin antibiotic interaction but return with any of the symptoms listed above additionally return with any fevers worsening pain nausea vomiting or any other new or worsening symptoms.
[2023-11-03 13:52] LABS: BASOPHILS # (AUTO) 0.1 10^3/uL (0.0-0.1); BASOPHILS % (AUTO) 0.4 %; EOSINOPHILS # (AUTO) 0.1 10^3/uL (0.0-0.7); EOSINOPHILS % (AUTO) 0.7 %; HCT - HEMATOCRIT 41.1 % (37.0-47.0); HGB - HEMOGLOBIN 12.3 g/dL (12.0-16.0); LYMPHOCYTES # (AUTO) 1.1 10^3/uL (1.5-3.5); MEAN CORPUSCULAR HEMOGLOBIN 29.6 pg (27.0-31.0); MEAN CORPUSCULAR HGB CONC 29.9 g/dL (32.0-36.0); MEAN PLATELET VOLUME 9.3 fL (7.9-10.8); MONOCYTES # (AUTO) 1.2 10^3/uL (0.0-1.0); MONOCYTES % (AUTO) 6.3 %; NEUTROPHILS # (AUTO) 15.6 10^3/uL (1.5-6.6); NEUTROPHILS % (AUTO) 85.6 %; PLT - PLATELET COUNT 308 10^3/uL (130-450); RED BLOOD COUNT 4.15 10^6/uL (4.20-5.40); RED CELL DISTRIBUTION WIDTH 12.6 % (12.0-15.0); WHITE BLOOD COUNT 18.2 x10^3/uL (4.8-10.8)
[2023-11-03 14:08] LABS: LIPASE 16 U/L (11-82)
[2023-11-03 14:11] LABS: ALBUMIN 3.5 g/dL (3.2-5.5); ALBUMIN/GLOBULIN RATIO 1.5 (1.0-2.2); ALKALINE PHOSPHATASE 61 IU/L (42-121); ALT ALANINE AMINOTRANSFERASE 17 IU/L (10-60); AST ASPARTATE AMINOTRANSFERASE 14 IU/L (10-42); BILIRUBIN,TOTAL 0.5 mg/dL (0.2-1.0); BUN - BLOOD UREA NITROGEN 23 mg/dL (6-20); CALCIUM 9.4 mg/dL (8.5-10.3); CARBON DIOXIDE - CO2 > 45 mmol/L (21-32); CHLORIDE 96 mmol/L (101-111); CREATININE 0.7 mg/dL (0.6-1.3); GFR - MDRD 80 (>89); GLUCOSE 146 mg/dL (74-104); POTASSIUM 3.8 mmol/L (3.5-4.5); SODIUM 145 mmol/L (135-145); TOTAL PROTEIN 5.8 g/dL (6.4-8.9)
--- NOTE | 2023-11-03 15:20 | CT Report ---
PROCEDURE: Abdomen/Pelvis WO INDICATIONS: left flank pain TECHNIQUE: Helical axial CT of the abdomen and pelvis was obtained without intravenous contrast and reformatted in multiple planes. Radiation dose reduction was achieved utilizing automated exposure co ntrol or adjustment of mA and/or kV according to patient size. COMPARISON: 08/08/2023 FINDINGS: Lower thorax: Bullous pulmonary emphysema. No hiatal hernia. Liver: Normal in size and attenuation. No contour deformity present. Biliary system: Cholelithiasis without inflammatory changes Pancreas: Unremarkable without mass or inflammation evident. Spleen: Normal in size and density. Adrenals: Normal morphology and density. Reproductive system: Unremarkable as visualized. Urinary system: Nonobstructive right renal calculi. Moderate right hydronephrosis and hydroureter is similar prior exam. No obstructing ureteral calculus it. Left kidney and collecting system unremarka ble. Urinary bladder unremarkable. Gastrointestinal system: The bowel appears unremarkable with no evidence of bowel obstruction or inf lammation. The stomach appears unremarkable. Multiple diverticula arise from the sigmoid colon witho ut evidence of diverticulitis. No obstruction. Moderate to fecal debris in the rectum Peritoneal spaces: No mesenteric or retroperitoneal adenopathy. No free air. No free fluid. Vasculature: Infrarenal abdominal aortic aneurysm measures 3.4 cm it. Abdominal wall: Abdominal wall is intact without evidence of ventral or inguinal hernias. Musculoskeletal: Normal bone mineralization. No acute fractures. Stable degenerative disc disease a nd arthropathy in the lumbar spine with multilevel spondylolisthesis degenerative. IMPRESSION: Persistent moderate right hydronephrosis without evidence of obstructing calculus or lesion, stable f rom the prior exam. No left-sided calculi or obstructive uropathy. Moderate fecal debris in the right colon and rectum. Sigmoid diverticulosis without diverticulitis. Additional chronic findings as above Reviewed by: Severino Perkins MD on 11/03/2023 2:18 PM AKDT Approved by: Severino Perkins MD on 11/03/2023 2:18 PM AKDT Station ID: [id number]
[2023-11-03 15:42] LABS: BILIRUBIN,URINE NEGATIVE (NEGATIVE); GLUCOSE, URINE (UA) NEGATIVE (NEGATIVE); KETONES,URINE (UA) NEGATIVE (NEGATIVE); LEUKOCYTE ESTERASE, URINE MODERATE (NEGATIVE); NITRITE,URINE NEGATIVE (NEGATIVE); OCCULT BLOOD,URINE NEGATIVE (NEGATIVE); PROTEIN,URINE NEGATIVE (NEGATIVE); UROBILINOGEN,URINE 0.2 (NORMAL) E.U./dL (NORMAL)
[2023-11-03 15:45] LABS: CLARITY,URINE HAZY (CLEAR)
[2023-11-03 15:56] LABS: AMORPHOUS SEDIMENT,UR Moderate /LPF; BACTERIA,URINE Moderate /HPF (None Seen); RBC,URINE 0-5 /HPF (0-5); SQUAMOUS EPITHELIAL CELL,UR FEW Squamous (<= Few)
[2023-11-03 16:39] LABS: B. PARAPERTUSSIS- RESP PCR PAN NOT DETECTED; B. PERTUSSIS- RESP PCR PANEL NOT DETECTED; C. PNEUMONIAE- RESP PCR PANEL NOT DETECTED; CORONAVIRUS 229E-RESP PCR NOT DETECTED; CORONAVIRUS HKU1-RESP PCR NOT DETECTED; CORONAVIRUS NL63-RESP PCR NOT DETECTED; CORONAVIRUS OC43-RESP PCR NOT DETECTED; HUMAN METAPNEUMOVIRUS NOT DETECTED; INFLUENZA A- RESP PCR PANEL NOT DETECTED; INFLUENZA B - RESP PCR PANEL NOT DETECTED; M. PNEUMONIAE- RESP PCR PANEL NOT DETECTED; PARAINFLUENZA VIRUS 1 NOT DETECTED; PARAINFLUENZA VIRUS 2 NOT DETECTED; PARAINFLUENZA VIRUS 3 NOT DETECTED; PARAINFLUENZA VIRUS 4 NOT DETECTED; RHINOVIRUS/ENTEROVIRUS NOT DETECTED; RSV- RESP PCR PANEL NOT DETECTED; SARS-CoV-2 -RESP PCR PANEL NOT DETECTED
[2023-11-03] MEDS: cefTRIAXone 1 GM in SODIUM CHLORIDE 0.9% MINIBAG 100 ML IV STA (17:11)
[2023-11-03 17:18] VITALS: O2SAT 93
[2023-11-03 18:26] VITALS: BP 108/61
== END 2023-11-03 18:23 | disposition home or self-care (01) ==
LOC: EDUNIT# → ED 12:32
DX: R10.9 Unspecified abdominal pain (principal); N13.30 Unspecified hydronephrosis; J44.9 Chronic obstructive pulmonary disease, unspecified; I71.43 Infrarenal abdominal aortic aneurysm, without rupture; Z99.81 Dependence on supplemental oxygen; Z88.0 Allergy status to penicillin
CPT/HCPCS: 36415; 80053; 81001; 81003; 83690; 85025; 87086; 87181; 87633; 93005; 96365; 99284

== ENCOUNTER 2023-11-04 21:40 | Outpatient (CLI) | payer MEDICARE, OTHER | END 2023-11-04 23:59 | disposition critical access hospital (66) | LOC: EMS 21:40 | DX: R06.02 Shortness of breath (principal); I48.91 Unspecified atrial fibrillation | CPT/HCPCS: A0425; A0427 ==

== ENCOUNTER 2023-11-04 22:02 | Inpatient (IN) | payer MEDICARE, OTHER ==
--- NOTE | 2023-11-04 22:15 | ED Physician Documentation ---
PD HPI DYSPNEA - Stated complaint Stated Complaint: RAPID HR - History obtained from History obtained from: Patient, EMS - Additional information Additional information: She has a history of atrial flutter/A-fib, COPD on 10 L of oxygen at home. She was seen yesterday for flank pain and found to have UTI and is on cefdinir and is preliminary growing E. coli. Her white count yesterday was 18.2. Today she feels much more short of breath. Denies cough or chest pain. No pedal edema. She was noted to be in A-fib with RVR in the way here and received 15 mg of diltiazem On the way here. On my evaluation she is in modest respiratory di stress speaking in short sentences and quite wheezy. 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 : Kidney stones HEENT: None Psych: Eating disorder Musculoskeletal: Fatigue, Chronic back pain, Other Derm: None - Past Surgical History Past Surgical History: Yes Ortho: Hip replacement - Present Medications Home Medications: Ambulatory Orders Medication Instructions Recorded Confirmed Albuterol Sulfate [Proventil Hfa 2 puffs INH Q4H PRN 03/21/19 08/14/22 Inhaler] Fluticasone Propion/Salmeterol 1 each IH BID 03/21/19 08/14/22 [Advair 500-50 Diskus] Tiotropium [place] [Spiriva 2 puffs INH BID 08/14/22 08/14/22 Respimat] Acetaminophen [Tylenol] 650 mg PO Q4HR PRN tab 09/06/22 Aspirin Chewable [[place] 81 mg PO DAILY tab 09/06/22 Aspirin] Famotidine [Pepcid] 20 mg PO BID tab 09/06/22 Gabapentin [Neurontin] 100 mg PO 1300,2000 cap 09/06/22 Metoprolol Tartrate [Lopressor] 12.5 mg PO BID tab 09/06/22 Mirtazapine [Remeron] 15 mg PO QPM tab 09/06/22 Montelukast [Singulair] 10 mg PO QPM tab 09/06/22 Moxifloxacin [Avelox] 400 mg PO DAILY #14 tablet 09/06/22 Multivitamin W/Minerals [Theragran 1 tab PO DAILYWM tab 09/06/22 M] [place]-3 Acid Ethyl Esters [Lovaza] 1 gm PO BIDWM cap 09/06/22 Saccharomyces Boulardii [Florastor] 250 mg PO BIDWM cap 09/06/22 Simvastatin [Zocor] 20 mg PO QPM #0 09/06/22 08/14/22 Tamsulosin [Flomax] 0.4 mg PO DAILY #0 09/06/22 08/14/22 Zinc Oxide 20% Oint [Zinc Oxide] 1 applic TOP PRN PRN each 09/06/22 dexAMETHasone [Decadron] 2 mg PO DAILY tab 09/06/22 guaiFENesin [Mucinex] 600 mg PO BID tab 09/06/22 Fosfomycin Tromethamine 3 gm PO ONCE #1 packet 08/08/23 HYDROcod/ACETAM 5/325 [[place] 5/325] 1 - 2 ea PO Q6H PRN #14 tablet 08/08/23 HYDROcod/ACETAM 5/325 [[place] 5/325] 1 ea PO Q6H PRN #14 tablet 08/13/23 Cefdinir 300 mg PO BID #20 cap 11/03/23 Cephalexin Suspension [Keflex] 474.4 mg PO BID 10 Days each 11/03/23 - Allergies Allergies/Adverse Reactions: Allergies Allergy/AdvReac Type Severity Reaction Status Date / Time Penicillins Allergy Intermediate Hives, Verified 11/04/23 22:19 swelling aspirin Allergy Mild Rash Verified 11/04/23 22:19 piroxicam [From Feldene] Allergy Mild Rash Verified 11/04/23 22:19 meperidine [From Demerol] Allergy Unknown Verified 11/04/23 22:19 - Social History Does the pt smoke?: No Smoking Status: Never smoker Does the pt drink ETOH?: No Does the pt have substance abuse?: No - Immunizations Immunizations are current?: Yes - POLST Patient has POLST: Yes PD ED PE NORMAL - Vitals Vital signs reviewed: Yes (She is tachypneic and tachycardic and hypoxic) - General General: Alert and oriented X 3 - HEENT HEENT: PERRL, EOMI - Neck Neck: Supple, no meningeal sign, No bony TTP - Cardiac Cardiac: Other (Irregularly irregular. Heart sounds obscured somewhat by loud labored breathing) - Respiratory Respiratory: Other (Tachypneic with inspiratory and expiratory wheezes and rhonchi both bases.) - Abdomen Abdomen: Soft, Non tender - Extremities Extremities: No edema, No calf tenderness / cord - Neuro Neuro: Alert and oriented X 3 Results - Vitals Vitals: Vital Signs - 24 hr 11/04/23 11/04/23 11/04/23 22:03 22:10 22:25 Temperature 36.8 C Heart Rate 138 H 124 H 168 H Respiratory 36 H 33 H 38 H Rate Blood Pressure 166/70 H O2 Saturation 85 L 98 If not protocol 8 6 : Oxygen Flow, liters/minute 11/04/23 11/04/23 11/04/23 22:35 22:40 22:43 Temperature Heart Rate 98 112 H 110 H Respiratory 22 27 H Rate Blood Pressure 126/67 110/60 O2 Saturation 99 97 If not protocol 6 : Oxygen Flow, liters/minute 11/04/23 11/04/23 11/04/23 22:45 22:50 23:00 Temperature Heart Rate 105 H 110 H 108 H Respiratory 28 H 24 25 H Rate Blood Pressure 128/79 125/77 119/71 O2 Saturation 97 97 96 If not protocol : Oxygen Flow, liters/minute 11/04/23 23:15 Temperature Heart Rate 105 H Respiratory 31 H Rate Blood Pressure 132/83 H O2 Saturation 96 If not protocol : Oxygen Flow, liters/minute Oxygen O2 Source BIPAP - EKG (time done) 2212 EKG releavant findings:: EKG personally interpreted by author of this note. Relevant findings are: Rate: Rate (enter#) (145) Rhythm: Atrial fibrillation [place]: RAD Ischemia: ST depression (lateral), Non specific changes. No: ST elevation c/w ischemia Computer interpretation: Agree with computer - Labs Labs: Laboratory Tests 11/04/23 11/04/23 11/04/23 22:26 22:26 22:26 WBC 27.2 H RBC 4.34 Hgb 13.1 Hct 42.2 MCV 97.2 MCH 30.2 MCHC 31.0 L RDW 12.6 Plt Count 360 MPV 9.6 Neut # (Auto) Not Reportable Lymph # (Auto) Not Reportable [place] # (Auto) Not Reportable Eos # (Auto) Not Reportable Baso # (Auto) Not Reportable Absolute Nucleated RBC Not Reportable Total Counted 100 Band Neuts % (Manual) 8 Abnorm Lymph % (Manual) 0 Nucleated RBC % Not Reportable Neutrophils # (Manual) 24.8 H Lymphocytes # (Manual) 0.3 L Monocytes # (Manual) 1.9 H Eosinophils # (Manual) 0.3 Basophils # (Manual) 0.0 Differential Comment MANUAL DIFFERENTIAL Platelet Estimate NORMAL (130-450,000) Platelet Morphology NORMAL APPEARANCE RBC Morph Micro Appear NORMAL APPEARANCE D-Dimer 363.9 H Sodium 142 Potassium 3.9 Chloride 94 L Carbon Dioxide 41 H* Anion Gap 7.0 BUN 26 H Creatinine 0.8 Estimated GFR (MDRD) 68 L Glucose 159 H Lactic Acid Calcium 9.7 Phosphorus 3.4 Magnesium 1.9 Total Bilirubin 0.5 AST 14 ALT 14 Alkaline Phosphatase 64 Troponin I High Sens Total Protein 6.8 Albumin 3.5 Globulin 3.3 Albumin/Globulin Ratio 1.1 11/04/23 11/04/23 22:26 22:26 WBC RBC Hgb Hct MCV MCH MCHC RDW Plt Count MPV Neut # (Auto) Lymph # (Auto) [place] # (Auto) Eos # (Auto) Baso # (Auto) Absolute Nucleated RBC Total Counted Band Neuts % (Manual) Abnorm Lymph % (Manual) Nucleated RBC % Neutrophils # (Manual) Lymphocytes # (Manual) Monocytes # (Manual) Eosinophils # (Manual) Basophils # (Manual) Differential Comment Platelet Estimate Platelet Morphology RBC Morph Micro Appear D-Dimer Sodium Potassium Chloride Carbon Dioxide Anion Gap BUN Creatinine Estimated GFR (MDRD) Glucose Lactic Acid 1.3 Calcium Phosphorus Magnesium Total Bilirubin AST ALT Alkaline Phosphatase Troponin I High Sens 25.6 H* Total Protein Albumin Globulin Albumin/Globulin Ratio - Rads (name of study) Single view chest x-ray demonstrates blunting of the left costophrenic angle, otherwise negative. Relevant Findings:: Final report received, EMP independent interpretation of test PD Medical Decision Making - ED course ED course: This is an 83-year-old woman with A-fib and COPD on 10 L of oxygen at home presents with dyspnea. She has a UTI that is being treated for the last day with E. coli growing from her urine. She is in some level respiratory distress. Her presentation is most consistent with a severe COPD exacerbation and she is administered DuoNeb and Solu-Medrol pending further workup. Discharge summary from August of last year was reviewed. She had a prolonged hospitalization of almost a months duration. With diagnoses including acute on chronic respiratory failure, healthcare acquired pneumonia, COPD exacerbation, UTI, tachybradycardia syndrome for enthesis she does not have a PPM) she was noted to have cavitary pneumonia this and was treated with prolonged antibiotic therapy. Also reviewed palliative care notes from that hospitalization and she is DNR/DNI. Subsequently she did require the initiation of BiPAP and her white count here is 27,000 up from 18,000 yesterday so I am covering her both for COPD exacerbation and the UTI with Rocephin and azithromycin. Subsequently her D-dimer was technically positive at 363, although this is a negative age-adjusted D-dimer (positive at her age would be 420 or higher). CO2 is up, this represents chronic respiratory failure, and her troponin is mildly elevated at 25. I do not think that represents type I ACS given the relatively low elevation, her advanced age and comorbidities and medical illness. Care to Dr Peralta pending callback from telehealth. - Critical Care Time(min): 46 Time Includes: Direct patient care, Review records, Reassess patient, Document care, Coordinate care, Medical consult Data interpretation: Labs, Pulse ox, ABG, CXR, See progress note Procedures excluded from critical care time: EKG Departure - Departure Disposition: 66 [facility] DC/Xfer Clinical Impression: Acute exacerbation of COPD with asthma, Atrial fibrillation with RVR, DNI (do not intubate) Acute and chronic respiratory failure Qualifiers: Respiratory failure complication: hypoxia and hypercapnia Qualified Code(s): J96.21 - Acute and chronic respiratory failure with hypoxia Sepsis Qualifiers: Sepsis type: Escherichia coli Sepsis acute organ dysfunction status: with acute organ dysfunction Severe sepsis acute organ dysfunction type: acute respiratory failure Acute respiratory failure type: with hypoxia Severe sepsis shock status: without septic shock Qualified Code(s): A41.51 - Sepsis due to Escherichia coli [E. coli] Condition: Critical
[2023-11-04] MEDS: IPRATROPIUM/ALBUTEROL 3 ML NEB INH STA (22:25)
[2023-11-04 22:33] LABS: BASOPHILS % (AUTO) 0.4 %; EOSINOPHILS % (AUTO) 0.1 %; HCT - HEMATOCRIT 42.2 % (37.0-47.0); HGB - HEMOGLOBIN 13.1 g/dL (12.0-16.0); LYMPHOCYTES % (AUTO) 6.4 %; MEAN CORPUSCULAR HEMOGLOBIN 30.2 pg (27.0-31.0); MEAN CORPUSCULAR VOLUME 97.2 fL (81.0-99.0); MEAN PLATELET VOLUME 9.6 fL (7.9-10.8); MONOCYTES % (AUTO) 7.8 %; NEUTROPHILS % (AUTO) 84.4 %; PLT - PLATELET COUNT 360 10^3/uL (130-450); RED BLOOD COUNT 4.34 10^6/uL (4.20-5.40); RED CELL DISTRIBUTION WIDTH 12.6 % (12.0-15.0); WHITE BLOOD COUNT 27.2 x10^3/uL (4.8-10.8)
[2023-11-04] MEDS: diltiaZEM INJ 5 MG/ML VIAL IVP STA (22:33)
[2023-11-04] MEDS: methylPREDNISolone SUCCINATE 125 MG/2 ML VIAL IVP STA (22:36)
[2023-11-04 22:39] LABS: ABNORMAL LYMPHS % (MANUAL) 0 %
--- NOTE | 2023-11-04 22:53 | XRAY Report ---
PROCEDURE: Chest 1V INDICATIONS: dyspnea TECHNIQUE: One view of the chest was acquired. COMPARISON: 09/01/2022. FINDINGS: Surgical changes and devices: None. Lungs and pleura: Blunting of the left costophrenic angle. Mediastinum: Mediastinal contours appear normal. Heart size is normal. Bones and chest wall: No suspicious bony lesions. Overlying soft tissues appear unremarkable. IMPRESSION: Blunting of the left costophrenic angle, may represent small pleural effusion with adjacent atelectas is or consolidation. Reviewed by: Paul Donato MD on 11/04/2023 10:51 PM PDT Approved by: Paul Donato MD on 11/04/2023 10:51 PM PDT Station ID: [id number]
[2023-11-04 22:55] LABS: MAGNESIUM 1.9 mg/dL (1.7-2.3); PHOSPHORUS 3.4 mg/dL (2.5-5.0)
[2023-11-04 22:59] LABS: BAND NEUTROPHILS % (MANUAL) 8 %; DIFFERENTIAL COMMENT MANUAL DIFFERENTIAL; EOSINOPHILS # (MANUAL) 0.3 10^3/uL (0-0.7); LYMPHOCYTES # (MANUAL) 0.3 10^3/uL (1.5-3.5); LYMPHOCYTES % (MANUAL) 1 %; MONOCYTES # (MANUAL) 1.9 10^3/uL (0.0-1.0); NEUTROPHILS # (MANUAL) 24.8 10^3/uL (1.5-6.6); PLATELET ESTIMATE, MANUAL NORMAL (130-450,000) (NORMAL); PLATELET MORPHOLOGY NORMAL APPEARANCE (NORMAL); RBC MORPHOLOGY (MULTIPLE) NORMAL APPEARANCE (NORMAL)
[2023-11-04] MEDS: cefTRIAXone 1 GM VIAL IVP STA (23:00)
[2023-11-04 23:03] LABS: ALBUMIN 3.5 g/dL (3.2-5.5); ALBUMIN/GLOBULIN RATIO 1.1 (1.0-2.2); BILIRUBIN,TOTAL 0.5 mg/dL (0.2-1.0); CALCIUM 9.7 mg/dL (8.5-10.3); CREATININE 0.8 mg/dL (0.6-1.3); POTASSIUM 3.9 mmol/L (3.5-4.5); TOTAL PROTEIN 6.8 g/dL (6.4-8.9)
[2023-11-04] MEDS: AZITHROMYCIN INJ 500 MG in SODIUM CHLORIDE 0.9% 250 ML IV STA (23:10)
[2023-11-04 23:21] LABS: B. PARAPERTUSSIS- RESP PCR PAN NOT DETECTED; B. PERTUSSIS- RESP PCR PANEL NOT DETECTED; C. PNEUMONIAE- RESP PCR PANEL NOT DETECTED; CORONAVIRUS 229E-RESP PCR NOT DETECTED; CORONAVIRUS HKU1-RESP PCR NOT DETECTED; CORONAVIRUS NL63-RESP PCR NOT DETECTED; CORONAVIRUS OC43-RESP PCR NOT DETECTED; HUMAN METAPNEUMOVIRUS NOT DETECTED; INFLUENZA A- RESP PCR PANEL NOT DETECTED; INFLUENZA B - RESP PCR PANEL NOT DETECTED; M. PNEUMONIAE- RESP PCR PANEL NOT DETECTED; PARAINFLUENZA VIRUS 1 NOT DETECTED; PARAINFLUENZA VIRUS 2 NOT DETECTED; PARAINFLUENZA VIRUS 3 NOT DETECTED; PARAINFLUENZA VIRUS 4 NOT DETECTED; RHINOVIRUS/ENTEROVIRUS NOT DETECTED; RSV- RESP PCR PANEL NOT DETECTED; SARS-CoV-2 -RESP PCR PANEL NOT DETECTED
[2023-11-04] MEDS ORDERED: IPRATROPIUM 0.2 MG/ML NEB INH PRN (23:31)
[2023-11-04] MEDS ORDERED: SODIUM CHLORIDE FLUSH 0.9% 10 ML SYRINGE IVP PRN (23:31)
--- NOTE | 2023-11-04 23:46 | HISTORY & PHYSICAL EXAMINATION ---
Chief Complaint - Chief Complaint Chief Complaint: shortness of breath History of Present Illness - Admitted From Admitted From:: ER - History Obtained From Records Reviewed: Yes History obtained from: Patient, daughter - History of Present Illness HPI Comment/Other: 83 yo F who presented with respiratory distress. She received cardizem from EMS and in the ER required bipap. She lives with her daughter who is present during encounter. Patient is on bipap at time of encounter so history is obtained from daughter. Patient had pain in her L mid-side for days and just told her daughter yesterday. She was seen and diagnosed with UTI, started on antibiotics. She had improvement of pain last night. At baseline, she has more difficulty breathing when it is hot and humid outside. She is on 10L NC regularly. Today, she stated she could not breathe, it was hot and humid today and symptoms did not resolve at night so she requested that daughter call EMS. Her oxygen sats were fine but they noticed her heart rate was high so they brought her in. Daughter denies any coughing. She got the first 3 vaccines for covid but no further boosters, she has not had the flu shot. She was tested yesterday for respiratory viral and she was negative. Daughter says she recently saw her gimp buttonhole machine operator and they increased she thinks her lopressor to 25mg, daughter does her medications every day and reports compliance. In the ER, she received azithro, rocephin, cardizem, solumedrol, duoneb. History - Past Medical History Cardiovascular: reports: Hypertension, Atrial flutter, Atrial fibrillation, Arrhythmia Respiratory: reports: Asthma, COPD, Pneumonia, Shortness of breath, Other Neuro: reports: CVA, Other Endocrine/Autoimmune: reports: None GI: reports: None CORPORATE TRAVEL AGENT: reports: None : reports: Kidney stones HEENT: reports: None Psych: reports: Eating disorder Musculoskeletal: reports: Fatigue, Chronic back pain, Other Derm: reports: None MRSA Hx?: No - Past Surgical History Ortho: reports: Hip replacement - Family & Social History Family History Comment/Other: daughter denies Living Situation: With friend(s) (adopted granddaughter Ben with apergers; Mariana "adopted" but not legally, does shopping, bills, sets up medications; errands not personal care; friend Keyshawn comes daily to help with meals, laundry- has known her for 50 years) Social History Notes: quit smoking 40 years ago; denies alcohol, other drug use - Substance History Use: Uses substance without health or social issues: NONE - POLST Patient has POLST: Yes POLST Status: Full Code Meds/Allgy - Home Medications Home Medications: Ambulatory Orders Medication Instructions Recorded Confirmed Albuterol Sulfate [Proventil Hfa 2 puffs INH Q4H PRN 03/21/19 08/14/22 Inhaler] Fluticasone Propion/Salmeterol 1 each IH BID 03/21/19 08/14/22 [Advair 500-50 Diskus] Tiotropium [place] [Spiriva 2 puffs INH BID 08/14/22 08/14/22 Respimat] Acetaminophen [Tylenol] 650 mg PO Q4HR PRN tab 09/06/22 Aspirin Chewable [[place] 81 mg PO DAILY tab 09/06/22 Aspirin] Famotidine [Pepcid] 20 mg PO BID tab 09/06/22 Gabapentin [Neurontin] 100 mg PO 1300,2000 cap 09/06/22 Metoprolol Tartrate [Lopressor] 12.5 mg PO BID tab 09/06/22 Mirtazapine [Remeron] 15 mg PO QPM tab 09/06/22 Montelukast [Singulair] 10 mg PO QPM tab 09/06/22 Moxifloxacin [Avelox] 400 mg PO DAILY #14 tablet 09/06/22 Multivitamin W/Minerals [Theragran 1 tab PO DAILYWM tab 09/06/22 M] [place]-3 Acid Ethyl Esters [Lovaza] 1 gm PO BIDWM cap 09/06/22 Saccharomyces Boulardii [Florastor] 250 mg PO BIDWM cap 09/06/22 Simvastatin [Zocor] 20 mg PO QPM #0 09/06/22 08/14/22 Tamsulosin [Flomax] 0.4 mg PO DAILY #0 09/06/22 08/14/22 Zinc Oxide 20% Oint [Zinc Oxide] 1 applic TOP PRN PRN each 09/06/22 dexAMETHasone [Decadron] 2 mg PO DAILY tab 09/06/22 guaiFENesin [Mucinex] 600 mg PO BID tab 09/06/22 Fosfomycin Tromethamine 3 gm PO ONCE #1 packet 08/08/23 HYDROcod/ACETAM 5/325 [[place] 5/325] 1 - 2 ea PO Q6H PRN #14 tablet 08/08/23 HYDROcod/ACETAM 5/325 [[place] 5/325] 1 ea PO Q6H PRN #14 tablet 08/13/23 Cefdinir 300 mg PO BID #20 cap 11/03/23 Cephalexin Suspension [Keflex] 474.4 mg PO BID 10 Days each 11/03/23 - Allergies Allergies/Adverse Reactions: Allergies Allergy/AdvReac Type Severity Reaction Status Date / Time Penicillins Allergy Intermediate Hives, Verified 11/04/23 22:19 swelling aspirin Allergy Mild Rash Verified 11/04/23 22:19 piroxicam [From Feldene] Allergy Mild Rash Verified 11/04/23 22:19 meperidine [From Demerol] Allergy Unknown Verified 11/04/23 22:19 Review of Systems - Other Findings Other Findings: A comprehensive ROS was completed, pertinent positives and negatives are noted in the HPI and all other systems reviewed negative. Exam - Vital Signs Reviewed Vital Signs: Yes Vital Signs: Vital Signs x48h Temp Pulse Resp BP Pulse Ox O2 Flow Rate 11/04/23 23:30 109 H 24 127/85 H 96 11/04/23 23:15 105 H 31 H 132/83 H 96 11/04/23 23:00 108 H 25 H 119/71 96 11/04/23 22:50 110 H 24 125/77 97 11/04/23 22:45 105 H 28 H 128/79 97 11/04/23 22:43 110 H 6 11/04/23 22:40 112 H 27 H 110/60 97 11/04/23 22:35 98 22 126/67 99 11/04/23 22:25 168 H 38 H 6 11/04/23 22:10 124 H 33 H 98 8 11/04/23 22:03 36.8 C 138 H 36 H 166/70 H 85 L - Physical Exam Comments/Other: General: awake, no acute distress; on bipap Lungs: bilateral upper lobe wheezing, bilateral lower lobe Heart: irregularly irregular, tachycardic Abdomen: soft, nontender, nondistended, Normal bowel sounds Musculoskeletal: Normal range of motion and strength, No tenderness Skin: Skin is warm, dry and pink Neurologic: alert, oriented Conclusion/Plan - Lab Results Fish Bones: 11/04/23 22:26 11/04/23 22:26 - Other Other Results/Comments: 1. Atrial fibrillation with RVR s/p cardizem bolus; ER to start cardizem gtt; on baby asa, cardiology recently increased metoprolol dose 2. UTI diagnosed in ER visit 11/03; ucx +ecoli, on cefdinir, cont rocephin; bcx pending 3. Acute COPD exacerbation with acute on chronic hypoxic respiratory failure cxr with atelectasis ?consolidation; recd rocephin, azithro in ER; will switch to doxy; cont solumedrol, duoneb; on bipap, wean as tolerated 4. Elevated troponin suspect secondary to demand ischemia from above; trend, pt denies chest pain 5. HTN on cardizem gtt for now, monitor 6. History of CVA 7. Chronic back pain 8. VTE prophylaxis lovenox 9. Dispo - admit to ICU Discussed plan of care with patient and a bedside RN. Case discussed at length with ER provider. Notes reviewed. Code status discussed, she wishes to be full code with chest compressions and intubation, if necessary. This H&P was accomplished using Telemedicine services via [facility] and assistance for bedside assessment was carried out, interpreted and reported to me by the bedside nurse. Time spent 75min educating /interviewing patient, reviewing chart and coordinating care for patient. 35 minutes critical care time Core Measures - Anticipated LOS I expect patient to be DC'd or transferred within 96 hours.: Yes Telemedicine Consult Details - Provider Location & Consult Time Telemedicine consultation conducted via videoconferencing?: Yes List names and roles of persons who participated in consult:: ER Dr Peralta, patient, RN
[2023-11-04] MEDS ORDERED: diltiaZEM INJ 5 MG/ML VIAL ONE (23:47)
[2023-11-04] MEDS: diltiaZEM INJ 125 MG in DEXTROSE 5% 100 ML IV STA (23:58)
[2023-11-05] MEDS: SODIUM CHLORIDE 0.9% 1,000 ML IV SCH (01:42)
[2023-11-05] MEDS: SODIUM CHLORIDE FLUSH 0.9% 10 ML SYRINGE IVP SCH (02:20)
--- NOTE | 2023-11-05 02:42 | ED Physician Documentation ---
ED Addendum - Addendum Addendum: 11/05/23 02:39 The patient was signed out to me by Dr. Huerta at change of shift, pending conversation with hospitalist for admission to ICU. The patient had presented with dyspnea and was found to be in A-fib with RVR and having a COPD exacerbation which ultimately required BiPAP. Please see Dr. West's note for further details on this patient's history. The patient had been diagnosed with a UTI yesterday and was given doses of not only Rocephin but also Zithromax here, due to findings of possible consolidation on her chest x-ray. I spoke with Dr. Jonh potts, the on-call hospitalist and after discussion of the details of the case, she did agree to admit the patient to her service. I have started a diltiazem drip on the patient at her request as the patient still has a heart rate in the low 100s. The patient is DNR DNI, but at this point, is not demonstrating the need for intubation and has been fairly stable on BiPAP. Final impression: See original note Disposition: Admit to intensive care unit in critical condition. 11/05/23 02:40
[2023-11-05 04:39] LABS: BASOPHILS # (AUTO) 0.1 10^3/uL (0.0-0.1); BASOPHILS % (AUTO) 0.2 %; HCT - HEMATOCRIT 39.2 % (37.0-47.0); HGB - HEMOGLOBIN 12.1 g/dL (12.0-16.0); LYMPHOCYTES # (AUTO) 0.8 10^3/uL (1.5-3.5); LYMPHOCYTES % (AUTO) 3.2 %; MEAN CORPUSCULAR HGB CONC 30.9 g/dL (32.0-36.0); MEAN CORPUSCULAR VOLUME 97.3 fL (81.0-99.0); MEAN PLATELET VOLUME 9.8 fL (7.9-10.8); MONOCYTES # (AUTO) 0.6 10^3/uL (0.0-1.0); MONOCYTES % (AUTO) 2.5 %; NEUTROPHILS # (AUTO) 22.9 10^3/uL (1.5-6.6); PLT - PLATELET COUNT 283 10^3/uL (130-450); RED BLOOD COUNT 4.03 10^6/uL (4.20-5.40); RED CELL DISTRIBUTION WIDTH 12.7 % (12.0-15.0); WHITE BLOOD COUNT 24.6 x10^3/uL (4.8-10.8)
[2023-11-05 04:44] LABS: CALCIUM, IONIZED 1.11 mmol/L (1.15-1.33); VBG PH 7.448 (7.31-7.41)
[2023-11-05 05:03] LABS: CALCIUM 9.2 mg/dL (8.5-10.3); CREATININE 0.7 mg/dL (0.6-1.3); POTASSIUM 4.1 mmol/L (3.5-4.5); TROPONIN I HIGH SENSITIVITY 27.7 ng/L (2.3-14.8)
[2023-11-05 05:18] LABS: DIFFERENTIAL COMMENT MANUAL=AUTO DIFF; PLATELET ESTIMATE, MANUAL NORMAL (130-450,000) (NORMAL); PLATELET MORPHOLOGY NORMAL APPEARANCE (NORMAL)
[2023-11-05 05:25] LABS: MAGNESIUM 1.9 mg/dL (1.7-2.3); PHOSPHORUS 3.3 mg/dL (2.5-5.0)
[2023-11-05] MEDS: methylPREDNISolone SUCCINATE 40 MG/ML VIAL IVP SCH (06:13)
[2023-11-05] MEDS: DOXYCYCLINE INJ 100 MG in SODIUM CHLORIDE 0.9% MINIBAG 100 ML IV SCH (08:22)
[2023-11-05] MEDS: ENOXAPARIN 40 MG/0.4 ML SYRINGE SUBQ SCH (08:22)
--- NOTE | 2023-11-05 13:59 | PROVIDER PROGRESS NOTE ---
Assessment/Plan - Problem List (1) Atrial fibrillation with RVR Assessment/Plan: Atrial fibrillation with rapid ventricular response has resolved. Patient observed in ICU for 6 hours with no issues after diltiazem drip discontinued. Patient transfered to medical floor. Metoprolol 25 mg twice daily. (2) UTI (urinary tract infection) Qualifiers: Urinary tract infection type: acute cystitis Hematuria presence: without hematuria Qualified Code(s): N30.00 - Acute cystitis without hematuria Assessment/Plan: Urine culture done on 11/03/23 positive for E. Coli. Sensitivies are pending. Continue ceftriaxone 1 gram daily IV. (3) COPD with exacerbation Assessment/Plan: PFTs not available for review. Patient sees a side framer at [facility] in [place]. It is highly likely her COPD is severe given the fact that she frequently requrires 10 LPM at home per her report. She reports she sleep frequently during the day does walk around here residence without difficulty. Continue Duoneb four times a day. Continue solumedrol 40 mg IV daily. (4) Hypertension Assessment/Plan: Continue metoprolol 25 mg twice daily. (5) Chronic back pain Assessment/Plan: Stable. Continue to monitor. - Current Meds Current Meds: Current Medications Generic Name Dose Route Start Last Admin Trade Name Freq PRN Reason Stop Dose Admin Enoxaparin Sodium 40 mg 11/05/23 09:00 11/05/23 08:22 Enoxaparin 40 Mg/0.4 Ml Syringe SUBQ 40 mg DAILY HENOK Administration Diltiazem HCl 125 mg/ Dextrose 125 mls @ 5 mls/hr 11/04/23 23:33 11/05/23 04:20 IV 11/06/23 00:32 5 mg/hr TITR STA 5 mls/hr Titration Protocol 5 MG/HR Doxycycline Hyclate 100 mg/ 100 mls @ 100 mls/hr 11/05/23 09:00 11/05/23 08:22 Sodium Chloride IV 100 mls/hr BID HENOK Administration Sodium Chloride 1,000 mls @ 125 mls/hr 11/05/23 01:00 11/05/23 08:23 Normal Saline 0.9% IV 125 mls/hr .Q8H HENOK Administration Methylprednisolone 40 mg 11/05/23 06:00 11/05/23 12:42 Methylprednisolone Succinate 40 Mg/Ml Vial IVP 40 mg Q6HR HENOK Administration Sodium Chloride 10 ml 11/05/23 01:00 11/05/23 08:22 Sodium Chloride Flush 0.9% 10 Ml Syringe IVP 10 ml 0100,0900,1700 HENOK Administration - Lab Result Fish Bone Diagrams: 11/05/23 04:19 11/05/23 04:19 - Additional Planning My Orders: My Active Orders 11/05/23 13:00 Metoprolol Tartrate [Lopressor] 25 mg PO BID 11/05/23 Dinner Regular Diet [DIET] Subjective - Subjective Patient Reports: Other (Alert. Denies chest pain and abdominal pain. She reports dyspnea is a baseline. She uses 2-10 LPM of oxygen at home.) Objective Vital Signs: Vital Signs - 24 hr 11/04/23 11/04/23 11/04/23 22:03 22:10 22:25 Temperature 36.8 C Heart Rate 138 H 124 H 168 H Heart Rate [ Monitoring electrodes] Respiratory 36 H 33 H 38 H Rate Blood Pressure 166/70 H Blood Pressure [Right Brachial artery] O2 Saturation 85 L 98 If not protocol 8 6 : Oxygen Flow, liters/minute 11/04/23 11/04/23 11/04/23 22:35 22:40 22:43 Temperature Heart Rate 98 112 H 110 H Heart Rate [ Monitoring electrodes] Respiratory 22 27 H Rate Blood Pressure 126/67 110/60 Blood Pressure [Right Brachial artery] O2 Saturation 99 97 If not protocol 6 : Oxygen Flow, liters/minute 11/04/23 11/04/23 11/04/23 22:45 22:50 23:00 Temperature Heart Rate 105 H 110 H 108 H Heart Rate [ Monitoring electrodes] Respiratory 28 H 24 25 H Rate Blood Pressure 128/79 125/77 119/71 Blood Pressure [Right Brachial artery] O2 Saturation 97 97 96 If not protocol : Oxygen Flow, liters/minute 11/04/23 11/04/23 11/05/23 23:15 23:30 00:01 Temperature Heart Rate 105 H 109 H 118 H Heart Rate [ Monitoring electrodes] Respiratory 31 H 24 32 H Rate Blood Pressure 132/83 H 127/85 H 117/54 L Blood Pressure [Right Brachial artery] O2 Saturation 96 96 97 If not protocol 100 : Oxygen Flow, liters/minute 11/05/23 11/05/23 11/05/23 00:15 00:30 00:50 Temperature Heart Rate 111 H 107 H Heart Rate [ Monitoring electrodes] Respiratory 26 H 27 H Rate Blood Pressure 123/70 122/87 H Blood Pressure [Right Brachial artery] O2 Saturation 96 97 If not protocol 6 : Oxygen Flow, liters/minute 11/05/23 11/05/23 11/05/23 00:57 01:00 02:00 Temperature 37.3 C Heart Rate 113 H Heart Rate [ 108 H 90 Monitoring electrodes] Respiratory 25 H 23 Rate Blood Pressure Blood Pressure 110/93 H 109/66 [Right Brachial artery] O2 Saturation 98 96 If not protocol 6 : Oxygen Flow, liters/minute 11/05/23 11/05/23 11/05/23 03:00 04:00 04:11 Temperature Heart Rate 78 Heart Rate [ 87 78 Monitoring electrodes] Respiratory 23 22 Rate Blood Pressure Blood Pressure 95/69 101/71 [Right Brachial artery] O2 Saturation 98 98 If not protocol 6 : Oxygen Flow, liters/minute 11/05/23 11/05/23 11/05/23 04:21 04:33 05:00 Temperature 36.6 C Heart Rate Heart Rate [ 68 72 71 Monitoring electrodes] Respiratory 19 22 Rate Blood Pressure Blood Pressure 109/63 105/55 L [Right Brachial artery] O2 Saturation 98 99 If not protocol : Oxygen Flow, liters/minute 11/05/23 11/05/23 11/05/23 05:36 06:00 07:00 Temperature Heart Rate 70 Heart Rate [ 69 68 Monitoring electrodes] Respiratory 18 18 Rate Blood Pressure Blood Pressure 97/57 L 99/53 L [Right Brachial artery] O2 Saturation 98 98 If not protocol 6 : Oxygen Flow, liters/minute 11/05/23 11/05/23 11/05/23 07:31 08:00 09:00 Temperature 36.1 C L Heart Rate 70 Heart Rate [ 73 78 Monitoring electrodes] Respiratory 19 19 Rate Blood Pressure Blood Pressure 116/69 128/66 [Right Brachial artery] O2 Saturation 97 95 If not protocol : Oxygen Flow, liters/minute 11/05/23 11/05/23 11/05/23 10:00 11:00 11:19 Temperature Heart Rate Heart Rate [ 80 77 Monitoring electrodes] Respiratory 18 17 23 Rate Blood Pressure Blood Pressure 103/68 119/61 [Right Brachial artery] O2 Saturation 100 100 95 If not protocol 5 3 : Oxygen Flow, liters/minute 11/05/23 11/05/23 12:00 13:00 Temperature 36.7 C Heart Rate Heart Rate [ 82 89 Monitoring electrodes] Respiratory 22 26 H Rate Blood Pressure Blood Pressure 127/69 118/95 H [Right Brachial artery] O2 Saturation 95 94 If not protocol 5 5 : Oxygen Flow, liters/minute Oxygen O2 Source Nasal cannula Oxygen Flow Rate 100 I&O (Last 24 Hrs): Intake and Output Totals x24h 11/03/23 11/04/23 11/05/23 23:59 23:59 23:59 Intake Total 1174.750 Output Total 50 Balance 1124.750 General: Alert, Oriented x3, No acute distress HEENT: PERRLA Neck: Supple, No JVD Neuro: Alert, Non Focal Cardiovascular: Other (Positive S1, S2 No extra heart sounds.) Respiratory: Other (Fair air exhange all lung fernández. No wheezing or crackles.) Abdomen: Other (Soft, nontender, nondistended) Extremities: No cyanosis, No edema Skin: No rashes - Results Results: Laboratory Results WBC 24.6 x10^3/uL (4.8-10.8) H 11/05/23 04:19 RBC 4.03 10^6/uL (4.20-5.40) L 11/05/23 04:19 Hgb 12.1 g/dL (12.0-16.0) 11/05/23 04:19 Hct 39.2 % (37.0-47.0) 11/05/23 04:19 MCV 97.3 fL (81.0-99.0) 11/05/23 04:19 MCH 30.0 pg (27.0-31.0) 11/05/23 04:19 MCHC 30.9 g/dL (32.0-36.0) L 11/05/23 04:19 RDW 12.7 % (12.0-15.0) 11/05/23 04:19 Plt Count 283 10^3/uL (130-450) 11/05/23 04:19 MPV 9.8 fL (7.9-10.8) 11/05/23 04:19 Neut # (Auto) 22.9 10^3/uL (1.5-6.6) H 11/05/23 04:19 Lymph # (Auto) 0.8 10^3/uL (1.5-3.5) L 11/05/23 04:19 [place] # (Auto) 0.6 10^3/uL (0.0-1.0) 11/05/23 04:19 Eos # (Auto) 0.0 10^3/uL (0.0-0.7) 11/05/23 04:19 Baso # (Auto) 0.1 10^3/uL (0.0-0.1) 11/05/23 04:19 Absolute Nucleated RBC 0.00 x10^3/uL 11/05/23 04:19 Total Counted 100 11/04/23 22:26 Band Neuts % (Manual) Not Reportable 11/05/23 04:19 Abnorm Lymph % (Manual) Not Reportable 11/05/23 04:19 Nucleated RBC % 0.0 /100WBC 11/05/23 04:19 Neutrophils # (Manual) Not Reportable 11/05/23 04:19 Lymphocytes # (Manual) Not Reportable 11/05/23 04:19 Monocytes # (Manual) Not Reportable 11/05/23 04:19 Eosinophils # (Manual) Not Reportable 11/05/23 04:19 Basophils # (Manual) Not Reportable 11/05/23 04:19 Differential Comment MANUAL=AUTO DIFF 11/05/23 04:19 Platelet Estimate NORMAL (130-450,000) (NORMAL) 11/05/23 04:19 Platelet Morphology NORMAL APPEARANCE (NORMAL) 11/05/23 04:19 RBC Morph Micro Appear NORMAL APPEARANCE (NORMAL) 11/04/23 22:26 D-Dimer 363.9 ng/mL (200.0-255.0) H 11/04/23 22:26 VBG pH 7.448 (7.31-7.41) H 11/05/23 04:19 Ionized Calcium 1.11 mmol/L (1.15-1.33) L 11/05/23 04:19 Sodium 142 mmol/L (135-145) 11/05/23 04:19 Potassium 4.1 mmol/L (3.5-4.5) 11/05/23 04:19 Chloride 96 mmol/L (101-111) L 11/05/23 04:19 Carbon Dioxide 40 mmol/L (21-32) H* 11/05/23 04:19 Anion Gap 6.0 (6-13) 11/05/23 04:19 BUN 26 mg/dL (6-20) H 11/05/23 04:19 Creatinine 0.7 mg/dL (0.6-1.3) 11/05/23 04:19 Estimated GFR (MDRD) 80 (>89) L 11/05/23 04:19 Glucose 175 mg/dL (74-104) H 11/05/23 04:19 Lactic Acid 1.3 mmol/L (0.5-2.2) 11/04/23 22:26 Calcium 9.2 mg/dL (8.5-10.3) 11/05/23 04:19 Phosphorus 3.3 mg/dL (2.5-5.0) 11/05/23 04:19 Magnesium 1.9 mg/dL (1.7-2.3) 11/05/23 04:19 Total Bilirubin 0.5 mg/dL (0.2-1.0) 11/04/23 22:26 AST 14 IU/L (10-42) 11/04/23 22:26 ALT 14 IU/L (10-60) 11/04/23 22:26 Alkaline Phosphatase 64 IU/L (42-121) 11/04/23 22:26 Troponin I High Sens 27.7 ng/L (2.3-14.8) H* 11/05/23 04:19 Total Protein 6.8 g/dL (6.4-8.9) 11/04/23 22:26 Albumin 3.5 g/dL (3.2-5.5) 11/04/23 22:26 Globulin 3.3 g/dL (2.1-4.2) 11/04/23 22:26 Albumin/Globulin Ratio 1.1 (1.0-2.2) 11/04/23 22:26 Nasal Adenovirus (PCR) NOT DETECTED 11/04/23 22:27 Nasal B. parapertussis DNA (PCR) NOT DETECTED 11/04/23 22:27 Nasal Coronavir 229E PCR NOT DETECTED 11/04/23 22:27 Nasal Coronavir HKU1 PCR NOT DETECTED 11/04/23 22:27 Nasal Coronavir NL63 PCR NOT DETECTED 11/04/23 22:27 Nasal Coronavir OC43 PCR NOT DETECTED 11/04/23 22:27 Nasal Enterovir/Rhinovir PCR NOT DETECTED 11/04/23 22:27 Nasal Influenza B PCR NOT DETECTED 08 22:27 Nasal Influenza A PCR NOT DETECTED 08 22:27 Nasal Parainfluen 1 PCR NOT DETECTED 11/04/23 22:27 Nasal Parainfluen 2 PCR NOT DETECTED 08 22:27 Nasal Parainfluen 3 PCR NOT DETECTED 11/04/23 22:27 Nasal Parainfluen 4 PCR NOT DETECTED 08 22:27 Nasal RSV (PCR) NOT DETECTED 11/04/23 22:27 Nasal Screen MRSA (PCR) NEGATIVE (NEGATIVE) 11/05/23 01:03 Nasal B.pertussis DNA PCR NOT DETECTED 11/04/23 22:27 Nasal C.pneumoniae (PCR) NOT DETECTED 08 22:27 Ashutosh Human Metapneumo PCR NOT DETECTED 11/04/23 22:27 Nasal M.pneumoniae (PCR) NOT DETECTED 11/04/23 22:27 Nasal SARS-CoV-2 (PCR) NOT DETECTED 11/04/23 22:27 - Procedures Procedures: Procedures EXCISION OF CECUM, ENDO (03/24/19) EXCISION OF SIGMOID COLON, ENDO (03/24/19) EXCISION OF TRANSVERSE COLON, ENDO (03/24/19) INSERTION OF INFUSION DEV INTO SUP VENA CAVA, PERC APPROACH (08/14/22)
[2023-11-05] MEDS: METOPROLOL TARTRATE 25 MG TABLET PO SCH (14:24)
[2023-11-05] MEDS: IPRATROPIUM/ALBUTEROL 3 ML NEB INH SCH ×2 (17:56→18:36)
[2023-11-05] MEDS: cefTRIAXone 1 GM in SODIUM CHLORIDE 0.9% MINIBAG 100 ML IV SCH (20:33)
[2023-11-06 05:42] LABS: CALCIUM, IONIZED 0.96 mmol/L (1.15-1.33); VBG PH 7.527 (7.31-7.41)
[2023-11-06 05:59] LABS: PHOSPHORUS 3.4 mg/dL (2.5-5.0); POTASSIUM 4.4 mmol/L (3.5-4.5)
--- NOTE | 2023-11-06 08:05 | PHARMACY PROGRESS NOTE ---
- Best Possible Medication History Admit Date and Time: 11/04/23 5778 Processed by: Pharmacy Medications reviewed in ED?: Yes Medication History completed: Yes Patient Interview: Completed Secondary Source(s): Prescription bottles, Pharmacy records, Insurance records As the person ultimately responsible for medication therapy, providers are able to order a medication from an existing home medication list in [facility] via the "Reconcile Routine" prior to Confirmation of that medication by lab support technician. Such practice is discouraged except when the physician, in their clinical judgment, deems that a medical need exists for a medication without regard to previous use.
[2023-11-06] MEDS: CALCIUM GLUCONATE IN NS 0.9% 2,000 MG/100 ML BAG IV ONE (08:10)
[2023-11-06] MEDS: methylPREDNISolone SUCCINATE 40 MG/ML VIAL IVP SCH (09:14)
[2023-11-06] MEDS: diltiaZEM INJ 5 MG/ML VIAL IVP PRN (09:22)
--- NOTE | 2023-11-06 13:22 | PROVIDER PROGRESS NOTE ---
Assessment/Plan - Problem List (1) Atrial fibrillation with RVR Assessment/Plan: * RVR had resolved up until this am, then briefly increased to the 120s again in the morning * RVR may be due to infection, given UTI * Increased metoprolol from 25 mg BID with IV Diltiazem added for PRN * Cont Lovenox (2) Chronic back pain Assessment/Plan: Stable Cont to monitor (3) Hypertension Assessment/Plan: Cont metoprolol 25 mg BID (4) COPD without exacerbation Assessment/Plan: Stable with oxygen requirement improved to 6L (5) UTI (urinary tract infection) Qualifiers: Urinary tract infection type: acute cystitis Hematuria presence: without hematuria Qualified Code(s): N30.00 - Acute cystitis without hematuria Assessment/Plan: Clinically improving and stable No fever WBC trending down, but still up at 24 Cont IV Rocephin pending cultures, at least 3-5 of IV abx - Current Meds Current Meds: Current Medications Generic Name Dose Route Start Last Admin Trade Name Freq PRN Reason Stop Dose Admin Albuterol/Ipratropium 3 ml 11/05/23 17:57 11/06/23 11:07 Ipratropium/Albuterol 3 Ml Neb INH 3 ml RTQID HENOK Administration Diltiazem HCl 10 mg 11/06/23 09:13 11/06/23 09:22 Diltiazem Inj 5 Mg/Ml Vial IVP 10 mg Q3HR PRN Administration Tachycardia Enoxaparin Sodium 40 mg 11/05/23 09:00 11/06/23 08:06 Enoxaparin 40 Mg/0.4 Ml Syringe SUBQ 40 mg DAILY HENOK Administration Doxycycline Hyclate 100 mg/ 100 mls @ 100 mls/hr 11/05/23 09:00 11/06/23 08:09 Sodium Chloride IV 100 mls/hr BID HENOK Administration Ceftriaxone Sodium 1 gm/ 100 mls @ 200 mls/hr 11/05/23 21:00 11/05/23 21:05 Sodium Chloride IV Infused HS HENOK Infusion Methylprednisolone 40 mg 11/06/23 09:00 11/06/23 09:14 Methylprednisolone Succinate 40 Mg/Ml Vial IVP 40 mg DAILY HENOK Administration Sodium Chloride 10 ml 11/05/23 01:00 11/06/23 08:10 Sodium Chloride Flush 0.9% 10 Ml Syringe IVP 10 ml 0100,0900,1700 HENOK Administration - Lab Result Lab results reviewed: Yes Fish Bone Diagrams: 11/05/23 04:19 11/06/23 05:36 - Diagnostic Imaging Results Diagnostic Imaging Results: Final report reviewed - Additional Planning My Orders: My Active Orders 11/06/23 09:13 [email or web address] INJ [Cardizem Inj] 10 mg IVP Q3HR PRN 11/06/23 Lunch Regular Diet [DIET] 11/06/23 12:00 Multivitamin W/Minerals [Theragran M] 1 tab PO DAILYWM 11/06/23 21:00 Metoprolol Tartrate [Lopressor] 50 mg PO BID Subjective - Subjective Patient Reports: Feeling Better Objective Vital Signs: Vital Signs - 24 hr 11/05/23 11/05/23 11/05/23 14:00 14:24 15:00 Temperature Heart Rate Heart Rate [ 96 80 Monitoring electrodes] Respiratory 23 20 Rate Blood Pressure 122/61 Blood Pressure 122/61 130/69 [Right Brachial artery] O2 Saturation 96 97 If not protocol 5 5 : Oxygen Flow, liters/minute 11/05/23 11/05/23 11/05/23 16:00 17:00 17:59 Temperature 36.6 C Heart Rate 76 Heart Rate [ 69 71 Monitoring electrodes] Respiratory 19 14 18 Rate Blood Pressure Blood Pressure 123/58 L 143/64 H [Right Brachial artery] O2 Saturation 95 99 If not protocol 3 3 2 : Oxygen Flow, liters/minute 11/05/23 11/05/23 11/05/23 18:00 19:00 19:30 Temperature Heart Rate Heart Rate [ 75 82 Monitoring electrodes] Respiratory 20 16 Rate Blood Pressure Blood Pressure 138/61 H 122/55 L [Right Brachial artery] O2 Saturation 97 97 If not protocol 4 4 4 : Oxygen Flow, liters/minute 11/05/23 11/05/23 11/05/23 20:00 20:33 21:00 Temperature 37.1 C Heart Rate Heart Rate [ 80 72 Monitoring electrodes] Respiratory 20 20 Rate Blood Pressure 114/58 L Blood Pressure 114/58 L 122/60 [Right Brachial artery] O2 Saturation 97 99 If not protocol 4 4 : Oxygen Flow, liters/minute 11/05/23 11/05/23 11/06/23 22:00 23:00 00:00 Temperature 36.7 C Heart Rate Heart Rate [ 69 69 68 Monitoring electrodes] Respiratory 23 20 18 Rate Blood Pressure Blood Pressure 127/74 127/68 115/57 L [Right Brachial artery] O2 Saturation 99 17 L 96 If not protocol 4 4 2 : Oxygen Flow, liters/minute 11/06/23 11/06/23 11/06/23 01:00 02:00 03:00 Temperature Heart Rate Heart Rate [ 64 71 65 Monitoring electrodes] Respiratory 16 19 18 Rate Blood Pressure Blood Pressure 128/53 L 121/61 131/61 H [Right Brachial artery] O2 Saturation 99 100 100 If not protocol 6 6 6 : Oxygen Flow, liters/minute 11/06/23 11/06/23 11/06/23 04:00 05:00 06:00 Temperature Heart Rate Heart Rate [ 62 66 70 Monitoring electrodes] Respiratory 16 16 20 Rate Blood Pressure Blood Pressure 113/51 L 120/56 L 125/59 L [Right Brachial artery] O2 Saturation 100 100 100 If not protocol 6 6 6 : Oxygen Flow, liters/minute 11/06/23 11/06/23 11/06/23 06:10 07:00 08:00 Temperature 35.9 C L Heart Rate 73 Heart Rate [ 86 99 Monitoring electrodes] Respiratory 18 17 23 Rate Blood Pressure Blood Pressure 116/60 114/89 H [Right Brachial artery] O2 Saturation 99 95 If not protocol 6 6 5 : Oxygen Flow, liters/minute 11/06/23 11/06/23 11/06/23 08:07 09:00 09:22 Temperature Heart Rate Heart Rate [ 105 H Monitoring electrodes] Respiratory 25 H Rate Blood Pressure 114/89 H 113/55 L Blood Pressure 113/55 L [Right Brachial artery] O2 Saturation 94 If not protocol 5 : Oxygen Flow, liters/minute 11/06/23 11/06/23 11/06/23 09:52 10:00 11:00 Temperature Heart Rate Heart Rate [ 81 88 Monitoring electrodes] Respiratory 97 H 20 Rate Blood Pressure 124/69 Blood Pressure 112/62 113/64 [Right Brachial artery] O2 Saturation 99 If not protocol 5 5 : Oxygen Flow, liters/minute 11/06/23 11/06/23 11/06/23 11:07 12:00 13:00 Temperature 36.4 C L Heart Rate 82 Heart Rate [ 99 102 H Monitoring electrodes] Respiratory 20 25 H 24 Rate Blood Pressure Blood Pressure 121/54 L 113/65 [Right Brachial artery] O2 Saturation 95 97 If not protocol 2 2 2 : Oxygen Flow, liters/minute Oxygen O2 Source Nasal cannula Oxygen Flow Rate 100 I&O (Last 24 Hrs): Intake and Output Totals x24h 11/04/23 11/05/23 11/06/23 23:59 23:59 23:59 Intake Total 2004.750 480 Output Total 50 1350 Balance 1954.750 -870 General: Alert, Oriented x3 HEENT: Atraumatic, EOMI Neuro: Alert, CN 2-12 Grossly Intact, Oriented Times 3 Cardiovascular: Other (Irregularly irregular, HR 120's) Abdomen: Normal bowel sounds Rectal: Non-Tender Extremities: No clubbing, No cyanosis, No edema Skin: No rashes - Results Results: Laboratory Results WBC 24.6 x10^3/uL (4.8-10.8) H 11/05/23 04:19 RBC 4.03 10^6/uL (4.20-5.40) L 11/05/23 04:19 Hgb 12.1 g/dL (12.0-16.0) 11/05/23 04:19 Hct 39.2 % (37.0-47.0) 11/05/23 04:19 MCV 97.3 fL (81.0-99.0) 11/05/23 04:19 MCH 30.0 pg (27.0-31.0) 11/05/23 04:19 MCHC 30.9 g/dL (32.0-36.0) L 11/05/23 04:19 RDW 12.7 % (12.0-15.0) 11/05/23 04:19 Plt Count 283 10^3/uL (130-450) 11/05/23 04:19 MPV 9.8 fL (7.9-10.8) 11/05/23 04:19 Neut # (Auto) 22.9 10^3/uL (1.5-6.6) H 11/05/23 04:19 Lymph # (Auto) 0.8 10^3/uL (1.5-3.5) L 11/05/23 04:19 [place] # (Auto) 0.6 10^3/uL (0.0-1.0) 11/05/23 04:19 Eos # (Auto) 0.0 10^3/uL (0.0-0.7) 11/05/23 04:19 Baso # (Auto) 0.1 10^3/uL (0.0-0.1) 11/05/23 04:19 Absolute Nucleated RBC 0.00 x10^3/uL 11/05/23 04:19 Total Counted 100 11/04/23 22:26 Band Neuts % (Manual) Not Reportable 11/05/23 04:19 Abnorm Lymph % (Manual) Not Reportable 11/05/23 04:19 Nucleated RBC % 0.0 /100WBC 11/05/23 04:19 Neutrophils # (Manual) Not Reportable 11/05/23 04:19 Lymphocytes # (Manual) Not Reportable 11/05/23 04:19 Monocytes # (Manual) Not Reportable 11/05/23 04:19 Eosinophils # (Manual) Not Reportable 11/05/23 04:19 Basophils # (Manual) Not Reportable 11/05/23 04:19 Differential Comment MANUAL=AUTO DIFF 11/05/23 04:19 Platelet Estimate NORMAL (130-450,000) (NORMAL) 11/05/23 04:19 Platelet Morphology NORMAL APPEARANCE (NORMAL) 11/05/23 04:19 RBC Morph Micro Appear NORMAL APPEARANCE (NORMAL) 11/04/23 22:26 D-Dimer 363.9 ng/mL (200.0-255.0) H 11/04/23 22:26 VBG pH 7.527 (7.31-7.41) H 11/06/23 05:36 Ionized Calcium 0.96 mmol/L (1.15-1.33) L 11/06/23 05:36 Sodium 141 mmol/L (135-145) 11/06/23 05:36 Potassium 4.4 mmol/L (3.5-4.5) 11/06/23 05:36 Chloride 96 mmol/L (101-111) L 11/05/23 04:19 Carbon Dioxide 40 mmol/L (21-32) H* 11/05/23 04:19 Anion Gap 6.0 (6-13) 11/05/23 04:19 BUN 26 mg/dL (6-20) H 11/05/23 04:19 Creatinine 0.7 mg/dL (0.6-1.3) 11/05/23 04:19 Estimated GFR (MDRD) 80 (>89) L 11/05/23 04:19 Glucose 175 mg/dL (74-104) H 11/05/23 04:19 Lactic Acid 1.3 mmol/L (0.5-2.2) 11/04/23 22:26 Calcium 9.2 mg/dL (8.5-10.3) 11/05/23 04:19 Phosphorus 3.4 mg/dL (2.5-5.0) 11/06/23 05:36 Magnesium 2.0 mg/dL (1.7-2.3) 11/06/23 05:36 Total Bilirubin 0.5 mg/dL (0.2-1.0) 11/04/23 22:26 AST 14 IU/L (10-42) 11/04/23 22:26 ALT 14 IU/L (10-60) 11/04/23 22:26 Alkaline Phosphatase 64 IU/L (42-121) 11/04/23 22:26 Troponin I High Sens 27.7 ng/L (2.3-14.8) H* 11/05/23 04:19 Total Protein 6.8 g/dL (6.4-8.9) 11/04/23 22:26 Albumin 3.5 g/dL (3.2-5.5) 11/04/23 22:26 Globulin 3.3 g/dL (2.1-4.2) 11/04/23 22:26 Albumin/Globulin Ratio 1.1 (1.0-2.2) 11/04/23 22:26 Nasal Adenovirus (PCR) NOT DETECTED 11/04/23 22:27 Nasal B. parapertussis DNA (PCR) NOT DETECTED 11/04/23 22:27 Nasal Coronavir 229E PCR NOT DETECTED 11/04/23 22:27 Nasal Coronavir HKU1 PCR NOT DETECTED 11/04/23 22:27 Nasal Coronavir NL63 PCR NOT DETECTED 11/04/23 22:27 Nasal Coronavir OC43 PCR NOT DETECTED 11/04/23 22:27 Nasal Enterovir/Rhinovir PCR NOT DETECTED 11/04/23 22:27 Nasal Influenza B PCR NOT DETECTED 11/04/23 22:27 Nasal Influenza A PCR NOT DETECTED 11/04/23 22:27 Nasal Parainfluen 1 PCR NOT DETECTED 11/04/23 22:27 Nasal Parainfluen 2 PCR NOT DETECTED 11/04/23 22:27 Nasal Parainfluen 3 PCR NOT DETECTED 11/04/23 22:27 Nasal Parainfluen 4 PCR NOT DETECTED 11/04/23 22:27 Nasal RSV (PCR) NOT DETECTED 11/04/23 22:27 Nasal Screen MRSA (PCR) NEGATIVE (NEGATIVE) 11/05/23 01:03 Nasal B.pertussis DNA PCR NOT DETECTED 11/04/23 22:27 Nasal C.pneumoniae (PCR) NOT DETECTED 11/04/23 22:27 [place] Human Metapneumo PCR NOT DETECTED 11/04/23 22:27 Nasal M.pneumoniae (PCR) NOT DETECTED 11/04/23 22:27 Nasal SARS-CoV-2 (PCR) NOT DETECTED 11/04/23 22:27 - Procedures Procedures: Procedures EXCISION OF CECUM, ENDO (03/24/19) EXCISION OF SIGMOID COLON, ENDO (03/24/19) EXCISION OF TRANSVERSE COLON, ENDO (03/24/19) INSERTION OF INFUSION DEV INTO SUP VENA CAVA, PERC APPROACH (08/14/22) ABX Reporting Has patient been on IV antibiotics over the past 48 hours?: Yes Current Medications - Current Medications Current Medications: Current Medications Generic Name Dose Route Start Last Admin Trade Name Freq PRN Reason Stop Dose Admin Albuterol/Ipratropium 3 ml 11/05/23 17:57 11/06/23 11:07 Ipratropium/Albuterol 3 Ml Neb INH 3 ml RTQID HENOK Administration Diltiazem HCl 10 mg 11/06/23 09:13 11/06/23 09:22 Diltiazem Inj 5 Mg/Ml Vial IVP 10 mg Q3HR PRN Administration Tachycardia Enoxaparin Sodium 40 mg 11/05/23 09:00 11/06/23 08:06 Enoxaparin 40 Mg/0.4 Ml Syringe SUBQ 40 mg DAILY HENOK Administration Doxycycline Hyclate 100 mg/ 100 mls @ 100 mls/hr 11/05/23 09:00 11/06/23 08:09 Sodium Chloride IV 100 mls/hr BID HENOK Administration Ceftriaxone Sodium 1 gm/ 100 mls @ 200 mls/hr 11/05/23 21:00 11/05/23 21:05 Sodium Chloride IV Infused HS HENOK Infusion Methylprednisolone 40 mg 11/06/23 09:00 11/06/23 09:14 Methylprednisolone Succinate 40 Mg/Ml Vial IVP 40 mg DAILY HENOK Administration Sodium Chloride 10 ml 11/05/23 01:00 11/06/23 08:10 Sodium Chloride Flush 0.9% 10 Ml Syringe IVP 10 ml 0100,0900,1700 HENOK Administration
[2023-11-06] MEDS: MULTIVITAMIN W/MINERALS TABLET PO SCH (14:31)
[2023-11-06 17:33] LABS: VBG PH 7.43 (7.31-7.41)
[2023-11-06 17:34] LABS: CALCIUM, IONIZED 1.21 mmol/L (1.15-1.33)
[2023-11-06] MEDS: METOPROLOL TARTRATE 25 MG TABLET PO SCH (20:26)
[2023-11-07 05:08] LABS: CALCIUM, IONIZED 1.09 mmol/L (1.15-1.33); VBG PH 7.502 (7.31-7.41)
[2023-11-07] MEDS: CALCIUM CARBONATE CHEW 500 MG TABLET PO SCH (06:26)
[2023-11-07 07:33] LABS: MAGNESIUM 1.8 mg/dL (1.7-2.3); PHOSPHORUS 2.5 mg/dL (2.5-5.0); POTASSIUM 3.7 mmol/L (3.5-4.5)
[2023-11-07 07:41] LABS: BASOPHILS % (AUTO) 0.1 %; HCT - HEMATOCRIT 35.7 % (37.0-47.0); LYMPHOCYTES # (AUTO) 1.2 10^3/uL (1.5-3.5); LYMPHOCYTES % (AUTO) 5.6 %; MEAN CORPUSCULAR HEMOGLOBIN 29.9 pg (27.0-31.0); MEAN CORPUSCULAR HGB CONC 30.8 g/dL (32.0-36.0); MEAN PLATELET VOLUME 9.9 fL (7.9-10.8); MONOCYTES # (AUTO) 1.3 10^3/uL (0.0-1.0); MONOCYTES % (AUTO) 6.3 %; NEUTROPHILS # (AUTO) 18.4 10^3/uL (1.5-6.6); PLT - PLATELET COUNT 315 10^3/uL (130-450); RED BLOOD COUNT 3.68 10^6/uL (4.20-5.40); RED CELL DISTRIBUTION WIDTH 12.7 % (12.0-15.0); WHITE BLOOD COUNT 21.1 x10^3/uL (4.8-10.8)
[2023-11-07 07:44] LABS: SLIDE REVIEW? Indicated
[2023-11-07 07:47] LABS: CALCIUM 9.1 mg/dL (8.5-10.3); CREATININE 0.6 mg/dL (0.6-1.3); POTASSIUM 3.7 mmol/L (3.5-4.5)
[2023-11-07 08:09] LABS: PLATELET ESTIMATE, MANUAL NORMAL (130-450,000) (NORMAL); PLATELET MORPHOLOGY NORMAL APPEARANCE (NORMAL); RBC MORPHOLOGY (MULTIPLE) NORMAL APPEARANCE (NORMAL)
[2023-11-07 14:31] VITALS: O2SAT 94
--- NOTE | 2023-11-07 15:00 | Discharge Plan ---
Discharge Plan Problem Reviewed?: Yes Disposition: Home, Self Care Condition: Critical Prescriptions: Cefpodoxime Proxetil [Vantin] 100 mg PO BID 6 Days #12 tab Doxycycline [Vibramycin] 100 mg PO BID 6 Days #12 tab Diet: Cardiac Activity Restrictions: Activity as Tolerated Instruction Topics: Atrial Fibrillation, Anticoagulants, COPD, UTI Plan of Treatment: Please complete the antibiotic prescriptions that I have sent to your [email or web address] pharmacy. I'd like you to discontinue the one you recieved at the ER on Nov 02, only because the one I am sending would help to treat both your previous UTI and the possible pneumonia which was noted on the xray from November 03. Also, please remember to try to avoid using any "extra" oxygen. Meaning, it's best to use only the amount of oxygen required to have your oxygen level kept at around 88-90% (You can measure this with a home pulse oximeter. The device applied to the finger to measure your oxygen saturation. They will likely sell these at [email or web address] or other pharmacies.). For reference, here at the hospital, on the day you were discharged, you required 5 liters of oxygen. No Smoking: If you smoke, Please STOP! Call for help.
[2023-11-07 15:13] VITALS: BP 143/86
--- NOTE | 2023-11-07 15:36 | DISCHARGE SUMMARY ---
Discharge Summary Admit Date: 11/04/23 Discharge Date: 11/07/23 Discharging Provider: Dr Aleksandar Love MD Code Status: Do Not Attempt Resuscitation Condition at Discharge: Stable Discharge Disposition: 01 Home, Self Care - DIAGNOSES Admission Diagnoses: A-fib with RVR UTI COPD with acute exacerbation Acute on chronic hypoxemic respiratory failure Elevated troponin HTN Discharge Diagnoses with Status of Each Condition: A-fib with RVRresolved COPD with exacerbationimproved UTIstable HTNstable - HPI History of Present Illness: 83 yo F who presented with respiratory distress. She received cardizem from EMS and in the ER required bipap. She lives with her daughter who is present during encounter. Patient is on bipap at time of encounter so history is obtained from daughter. Patient had pain in her L mid-side for days and just told her daughter yesterday. She was seen and diagnosed with UTI, started on antibiotics. She had improvement of pain last night. At baseline, she has more difficulty breathing when it is hot and humid outside. She is on 10L NC regularly. Today, she stated she could not breathe, it was hot and humid today and symptoms did not resolve at night so she requested that daughter call EMS. Her oxygen sats were fine but they noticed her heart rate was high so they brought her in. Daughter denies any coughing. She got the first 3 vaccines for covid but no further boosters, she has not had the flu shot. She was tested yesterday for respiratory viral and she was negative. Daughter says she recently saw her communications project lead and they increased she thinks her lopressor to 25mg, daughter does her medications every day and reports compliance. In the ER, she received azithro, rocephin, cardizem, solumedrol, duoneb. - HOSPITAL COURSE Hospital Course: As stated in the HPI, the patient initially required BiPAP upon admission and was started on a diltiazem gtt., and placed in the ICU for further care. The chest x-ray on admission was also suggestive of a possible consolidation, and given her respiratory presentation she was started on empiric antibiotics including Rocephin and Doxycycline IV.A-fib with RVR resolved overnight. She was started on Solu-Medrol 40 mg IV daily for her COPD exacerbation. Her oxygen level gradually improved throughout the hospitalization and by 11/06/2023 patient's oxygen level was improved such that she would be saturating over 90% on 5 to 6 L of oxygen by nasal cannula. For the most part, her A-fib remained stable however she had a brief run of A- fib with RVR on 11/06/2023 with heart rate sustaining in the 120s. At this time a trial of increasing metoprolol from 25 mg p.o. to 50 mg p.o. was initiated. By the next morning her blood pressure was soft in the 90s over 60s and it was determined that it would be best to return her metoprolol dose back to the 25 mg p.o. dose. By 11/07/2023 her respiratory status had returned to baseline and in fact possibly better with her oxygen levels maintaining with only 5 L nasal cannula. Her WBC had trended down, though it was still elevated at 21 and it was attributed to the IV steroids. She remained afebrile. She reported no subjective complaints. She was able to ambulate with a walker in the room and was essentially back at baseline for ADLs. At this point she was deemed to be medically stable for discharge. Conversation was had with the patient's daughter Mariana, regarding anticoagulation for A-fib and I recommended further discussion with her communications project lead as it appears that it had previously been decided to utilize aspirin alone to avoid risk of bleeding. With respect antibiotics, she will be discharged on doxycycline and Vantin p.o. - ALLERGIES Allergies/Adverse Reactions: Allergies Allergy/AdvReac Type Severity Reaction Status Date / Time Penicillins Allergy Intermediate Hives, Verified 11/04/23 22:19 swelling aspirin Allergy Mild Rash Verified 11/04/23 22:19 piroxicam [From Feldene] Allergy Mild Rash Verified 11/04/23 22:19 meperidine [From Demerol] Allergy Unknown Verified 11/04/23 22:19 - MEDICATIONS Home Medications: Ambulatory Orders Medication Instructions Recorded Confirmed Albuterol Sulfate [Proventil Hfa 2 puffs INH Q4H PRN 03/21/19 11/05/23 Inhaler] Acetaminophen [Tylenol] 650 mg PO Q4HR PRN tab 09/06/22 11/05/23 Montelukast [Singulair] 10 mg PO QPM tab 09/06/22 11/05/23 Multivitamin W/Minerals [Theragran 1 tab PO DAILYWM tab 09/06/22 11/05/23 M] Simvastatin [Zocor] 20 mg PO QPM #0 09/06/22 11/05/23 Tamsulosin [Flomax] 0.4 mg PO DAILY #0 09/06/22 11/05/23 dexAMETHasone [Decadron] 2 mg PO DAILY tab 09/06/22 11/05/23 Furosemide [Lasix] 20 - 60 mg PO DAILY 11/05/23 11/05/23 Metoprolol Tartrate [Lopressor] 25 mg PO BID 11/05/23 11/05/23 Aspirin EC [Ecotrin] 81 mg PO DAILY 11/06/23 11/06/23 Mirtazapine [Remeron] 30 mg PO QPM 11/06/23 11/06/23 Cefpodoxime Proxetil [Vantin] 100 mg PO BID 6 Days #12 tab 11/07/23 Doxycycline [Vibramycin] 100 mg PO BID 6 Days #12 tab 11/07/23 - PHYSICAL EXAM AT DISCHARGE General Appearance: positive: No acute distress Eyes Bilateral: positive: Normal inspection, EOMI ENT: positive: ENT inspection nml Neck: positive: Nml inspection Respiratory: positive: Chest non-tender, No respiratory distress, Breath sounds nml Cardiovascular: positive: No murmur, No gallop, Irregularly irregular Abdomen: positive: Non-tender, No organomegaly, Nml bowel sounds Skin: positive: Color nml, No rash, Warm Extremities: positive: Non-tender, Full ROM, Nml appearance Neurologic/Psychiatric: positive: Oriented x3, CN's nml (2-12) - LABS Result Diagrams: 11/07/23 07:10 11/07/23 07:10 - DIAGNOSTIC IMAGING Diagnostic Imaging Results: Final report reviewed - FOLLOW UP Follow Up: Follow-up with PCP within 1 week. Follow-up with communications project lead in 1 to 2 weeks. - TIME SPENT Time Spent in Discharge (Minutes): 45
[2023-11-07] MEDS ORDERED: CEFPODOXIME PROXETIL 100 MG TABLET PO SCH (21:00)
[2023-11-07] MEDS ORDERED: DOXYCYCLINE 100 MG TABLET PO SCH (21:00)
== END 2023-11-07 16:17 | disposition home or self-care (01) | DRG 871 ==
LOC: EDUNIT# → ED 22:02 → ICU 23:31
PROVIDERS: ADMIT Internal Medicine; ATTEND Family Medicine Sports Medicine
DX: A41.51 Sepsis due to Escherichia coli [E. coli] (principal); J96.21 Acute and chronic respiratory failure with hypoxia; J96.22 Acute and chronic respiratory failure with hypercapnia; N39.0 Urinary tract infection, site not specified; N30.00 Acute cystitis without hematuria; J44.1 Chronic obstructive pulmonary disease with (acute) exacerbation; R65.20 Severe sepsis without septic shock; Z66 Do not resuscitate; Z99.81 Dependence on supplemental oxygen; G89.29 Other chronic pain; M54.9 Dorsalgia, unspecified; I10 Essential (primary) hypertension; Z87.891 Personal history of nicotine dependence; Z79.82 Long term (current) use of aspirin; R79.89 Other specified abnormal findings of blood chemistry; Z86.73 Personal history of transient ischemic attack (TIA), and cerebral infarction without residual deficits; I48.91 Unspecified atrial fibrillation
CPT/HCPCS: 36415; 71045; 80048; 80053; 82330; 83605; 83735; 84100; 84132; 84295; 84484; 85025; 85379; 87040; 87150; 87633; 93005; 94640; 94660; 94664; 96374; 96375; 99291; A9270; J1650

== ENCOUNTER 2023-11-29 14:45 | Outpatient (CLI) | payer MEDICARE, OTHER ==
[2023-11-29 18:07] LABS: BASOPHILS # (AUTO) 0.1 10^3/uL (0.0-0.1); BASOPHILS % (AUTO) 0.5 %; EOSINOPHILS # (AUTO) 0.3 10^3/uL (0.0-0.7); EOSINOPHILS % (AUTO) 1.5 %; HCT - HEMATOCRIT 45.1 % (37.0-47.0); HGB - HEMOGLOBIN 13.2 g/dL (12.0-16.0); LYMPHOCYTES # (AUTO) 2.3 10^3/uL (1.5-3.5); LYMPHOCYTES % (AUTO) 12.1 %; MEAN CORPUSCULAR HEMOGLOBIN 29.1 pg (27.0-31.0); MEAN CORPUSCULAR HGB CONC 29.3 g/dL (32.0-36.0); MEAN CORPUSCULAR VOLUME 99.6 fL (81.0-99.0); MEAN PLATELET VOLUME 10.3 fL (7.9-10.8); MONOCYTES # (AUTO) 0.9 10^3/uL (0.0-1.0); MONOCYTES % (AUTO) 4.6 %; NEUTROPHILS # (AUTO) 15.6 10^3/uL (1.5-6.6); NEUTROPHILS % (AUTO) 80.7 %; PLT - PLATELET COUNT 406 10^3/uL (130-450); RED BLOOD COUNT 4.53 10^6/uL (4.20-5.40); RED CELL DISTRIBUTION WIDTH 12.9 % (12.0-15.0); WHITE BLOOD COUNT 19.3 x10^3/uL (4.8-10.8)
[2023-11-29 18:55] LABS: THYROID STIMULATING HORMONE 1.75 uIU/mL (0.34-5.60)
[2023-11-29 19:03] LABS: FERRITIN 39.6 ng/mL (11.0-306.8)
[2023-11-29 19:31] LABS: ALBUMIN 3.7 g/dL (3.2-5.5); ALBUMIN/GLOBULIN RATIO 1.4 (1.0-2.2); ALKALINE PHOSPHATASE 62 IU/L (42-121); ALT ALANINE AMINOTRANSFERASE 16 IU/L (10-60); AST ASPARTATE AMINOTRANSFERASE 18 IU/L (10-42); BILIRUBIN,TOTAL 0.4 mg/dL (0.2-1.0); BUN - BLOOD UREA NITROGEN 28 mg/dL (6-20); CALCIUM 10.3 mg/dL (8.5-10.3); CARBON DIOXIDE - CO2 > 45 mmol/L (21-32); CHLORIDE 88 mmol/L (101-111); GFR - MDRD 53 (>89); GLUCOSE 121 mg/dL (74-104); POTASSIUM 3.7 mmol/L (3.5-4.5); SODIUM 142 mmol/L (135-145); TOTAL PROTEIN 6.4 g/dL (6.4-8.9)
== END 2023-11-29 14:46 | disposition home or self-care (01) ==
LOC: LAB.N 14:45
PROVIDERS: ATTEND Physician Assistant Medical
DX: I48.91 Unspecified atrial fibrillation (principal); R53.83 Other fatigue
CPT/HCPCS: 36415; 80053; 82306; 82607; 82728; 84443; 85025

== ENCOUNTER 2023-12-13 05:59 | Emergency (ER) | payer MEDICARE, OTHER ==
--- NOTE | 2023-12-13 06:31 | ED Physician Documentation ---
History of Present Illness - Stated complaint Stated Complaint: R FLANK PX - Chief complaint Chief Complaint: Cardiac - History obtained from History obtained from: Patient, EMS - Additonal information Additional information: 83yF with pmh afib, recent ICU hospitalization for pyelonephritis, p/w R flank pain starting in the early hours of this morning along with palpitations. found to be in afib RVR en route. patient is hard of hearing and history is limited by this. PD PAST MEDICAL HISTORY - Past Medical History Cardiovascular: Hypertension, Atrial flutter, Atrial fibrillation, Arrhythmia Respiratory: Asthma, COPD, Pneumonia, Shortness of breath, Other Neuro: CVA, Other Endocrine/Autoimmune: None GI: None LACEWORKER: None : Kidney stones HEENT: None Psych: Eating disorder Musculoskeletal: Fatigue, Chronic back pain, Other Derm: None - Past Surgical History Past Surgical History: Yes Ortho: Hip replacement - Present Medications Home Medications: Ambulatory Orders Medication Instructions Recorded Confirmed Albuterol Sulfate [Proventil Hfa 2 puffs INH Q4H PRN 03/21/19 11/05/23 Inhaler] Acetaminophen [Tylenol] 650 mg PO Q4HR PRN tab 09/06/22 11/05/23 Montelukast [Singulair] 10 mg PO QPM tab 09/06/22 11/05/23 Multivitamin W/Minerals [Theragran 1 tab PO DAILYWM tab 09/06/22 11/05/23 M] Simvastatin [Zocor] 20 mg PO QPM #0 09/06/22 11/05/23 Tamsulosin [Flomax] 0.4 mg PO DAILY #0 09/06/22 11/05/23 dexAMETHasone [Decadron] 2 mg PO DAILY tab 09/06/22 11/05/23 Furosemide [Lasix] 20 - 60 mg PO DAILY 11/05/23 11/05/23 Metoprolol Tartrate [Lopressor] 25 mg PO BID 11/05/23 11/05/23 Aspirin EC [Ecotrin] 81 mg PO DAILY 11/06/23 11/06/23 Mirtazapine [Remeron] 30 mg PO QPM 11/06/23 11/06/23 Cefpodoxime Proxetil [Vantin] 100 mg PO BID 6 Days #12 tab 11/07/23 Doxycycline [Vibramycin] 100 mg PO BID 6 Days #12 tab 11/07/23 - Allergies Allergies/Adverse Reactions: Allergies Allergy/AdvReac Type Severity Reaction Status Date / Time Penicillins Allergy Intermediate Hives, Verified 12/13/23 06:04 swelling aspirin Allergy Mild Rash Verified 12/13/23 06:04 piroxicam [From Feldene] Allergy Mild Rash Verified 12/13/23 06:04 meperidine [From Demerol] Allergy Unknown Verified 12/13/23 06:04 - Social History Does the pt smoke?: No Smoking Status: Never smoker Does the pt drink ETOH?: No Does the pt have substance abuse?: No - Immunizations Immunizations are current?: Yes - POLST Patient has POLST: Yes POLST Status: Full Code PD ED PE NORMAL - Vitals Vital signs reviewed: Yes - General General: Alert and oriented X 3, No acute distress, Well developed/nourished, Other (elderly appearing) - HEENT HEENT: Atraumatic, PERRL, EOMI, Moist mucous membranes, Pharynx benign - Neck Neck: Supple, no meningeal sign - Cardiac Cardiac: Other (tachycardic rate, irregular rhythm) - Respiratory Respiratory: No respiratory distress, Clear bilaterally - Abdomen Abdomen: Non tender, Non distended - Derm Derm: Normal color, Warm and dry - Extremities Extremities: No deformity - Neuro Neuro: Alert and oriented X 3 - Psych Psych: Normal mood, Normal affect Results - Vitals Vitals: Vital Signs - 24 hr 12/13/23 12/13/23 06:00 06:40 Temperature 36.7 C Heart Rate 131 H 127 H Respiratory 22 20 Rate Blood Pressure 123/65 114/65 O2 Saturation 94 95 If not protocol 5 : Oxygen Flow, liters/minute Oxygen O2 Source Nasal cannula - EKG (time done) 0605 EKG releavant findings:: EKG personally interpreted by author of this note. Relevant findings are: Rate: Rate (enter#) (136) Rhythm: Atrial fibrillation QRS: Normal (borderline prolonged QRS 106) - Labs Labs: Laboratory Tests 12/13/23 06:20 WBC 19.3 H RBC 4.57 Hgb 13.3 Hct 46.3 MCV 101.3 H MCH 29.1 MCHC 28.7 L RDW 12.5 Plt Count 388 MPV 10.0 Neut # (Auto) 14.9 H Lymph # (Auto) 2.8 [place] # (Auto) 1.0 Eos # (Auto) 0.3 Baso # (Auto) 0.1 Absolute Nucleated RBC 0.00 Nucleated RBC % 0.0 PD Medical Decision Making - ED course ED course: 83yF with recent history of pyelonephritis p/w R flank pain and afib rvr this morning. septic workup was initiated and cefepime antibiotics ordered empirically in addition to 1 L IVF. plan to endorse to incoming daytime ED MD at 7am shift change. Departure - Departure Clinical Impression: Flank pain, Atrial fibrillation with RVR, Atrial fibrillation Condition: Fair Forms: PCP List
[2023-12-13] MEDS: MORPHINE 2 MG/ML CARPUJECT IVP STA (06:37)
[2023-12-13] MEDS: SODIUM CHLORIDE 0.9% 1,000 ML IV STA (06:38)
[2023-12-13] MEDS: CEFEPIME 1 GM in SODIUM CHLORIDE 0.9% MINIBAG 100 ML IV STA (06:41)
[2023-12-13] MEDS: ACETAMINOPHEN 325 MG TABLET PO STA (06:42)
[2023-12-13 06:53] LABS: BASOPHILS # (AUTO) 0.1 10^3/uL (0.0-0.1); BASOPHILS % (AUTO) 0.6 %; EOSINOPHILS # (AUTO) 0.3 10^3/uL (0.0-0.7); EOSINOPHILS % (AUTO) 1.6 %; HCT - HEMATOCRIT 46.3 % (37.0-47.0); HGB - HEMOGLOBIN 13.3 g/dL (12.0-16.0); LYMPHOCYTES # (AUTO) 2.8 10^3/uL (1.5-3.5); LYMPHOCYTES % (AUTO) 14.3 %; MEAN CORPUSCULAR HEMOGLOBIN 29.1 pg (27.0-31.0); MEAN CORPUSCULAR HGB CONC 28.7 g/dL (32.0-36.0); MEAN CORPUSCULAR VOLUME 101.3 fL (81.0-99.0); MONOCYTES % (AUTO) 5.4 %; NEUTROPHILS # (AUTO) 14.9 10^3/uL (1.5-6.6); NEUTROPHILS % (AUTO) 77.2 %; PLT - PLATELET COUNT 388 10^3/uL (130-450); RED BLOOD COUNT 4.57 10^6/uL (4.20-5.40); RED CELL DISTRIBUTION WIDTH 12.5 % (12.0-15.0); WHITE BLOOD COUNT 19.3 x10^3/uL (4.8-10.8)
[2023-12-13 06:58] LABS: BILIRUBIN,URINE NEGATIVE (NEGATIVE); GLUCOSE, URINE (UA) NEGATIVE (NEGATIVE); KETONES,URINE (UA) NEGATIVE (NEGATIVE); LEUKOCYTE ESTERASE, URINE NEGATIVE (NEGATIVE); NITRITE,URINE NEGATIVE (NEGATIVE); OCCULT BLOOD,URINE NEGATIVE (NEGATIVE); PH,URINE 6.5 PH (5.0-7.5); PROTEIN,URINE TRACE mg/dL (NEGATIVE); UROBILINOGEN,URINE 0.2 (NORMAL) E.U./dL (NORMAL)
[2023-12-13 07:06] LABS: CLARITY,URINE CLEAR (CLEAR)
[2023-12-13 07:12] LABS: ALBUMIN 3.4 g/dL (3.2-5.5); ALBUMIN/GLOBULIN RATIO 1.4 (1.0-2.2); ALKALINE PHOSPHATASE 70 IU/L (42-121); ALT ALANINE AMINOTRANSFERASE 10 IU/L (10-60); AST ASPARTATE AMINOTRANSFERASE 18 IU/L (10-42); BILIRUBIN,TOTAL 0.3 mg/dL (0.2-1.0); BUN - BLOOD UREA NITROGEN 28 mg/dL (6-20); CALCIUM 9.7 mg/dL (8.5-10.3); CARBON DIOXIDE - CO2 > 45 mmol/L (21-32); CHLORIDE 90 mmol/L (101-111); CREATININE 0.8 mg/dL (0.6-1.3); GFR - MDRD 68 (>89); GLUCOSE 197 mg/dL (74-104); POTASSIUM 3.6 mmol/L (3.5-4.5); SODIUM 144 mmol/L (135-145); TOTAL PROTEIN 5.8 g/dL (6.4-8.9)
[2023-12-13 07:18] LABS: RBC,URINE 0-5 /HPF (0-5); SQUAMOUS EPITHELIAL CELL,UR FEW Squamous (<= Few); WBC,URINE 0-3 /HPF (0-5)
[2023-12-13 07:19] LABS: AMORPHOUS SEDIMENT,UR Few /LPF; BACTERIA,URINE Few /HPF (None Seen); CASTS, URINE 6-10 Hyaline Casts /LPF
--- NOTE | 2023-12-13 07:47 | XRAY Report ---
PROCEDURE: Chest 1V INDICATIONS: Sepsis TECHNIQUE: One view of the chest was acquired. COMPARISON: None 11/04/2023 FINDINGS: Surgical changes and devices: None. Lungs and pleura: No pleural effusions or pneumothorax. Emphysematous change. Lungs are clear. Mediastinum: Mediastinal contours appear normal. Heart size is normal. Bones and chest wall: No suspicious bony lesions. Overlying soft tissues appear unremarkable. IMPRESSION: COPD. No acute cardiopulmonary process. Findings are concordant with preliminary interpretation provided by [facility]. Reviewed by: Zheng Verdin MD on 12/13/2023 7:46 AM PDT Approved by: Zheng Verdin MD on 12/13/2023 7:46 AM PDT Station ID: [id number]
[2023-12-13] MEDS ORDERED: iohexoL-300 100 ML VIAL ONE (08:58)
[2023-12-13] MEDS: iohexoL-300 100 ML VIAL IVP ONE (09:46)
--- NOTE | 2023-12-13 09:55 | CT Report ---
PROCEDURE: Abdomen/Pelvis W INDICATIONS: R flank pain CONTRAST: Omni 300 100ml TECHNIQUE: After the administration of intravenous contrast, a CT scan of the abdomen and pelvis was performed. Images were recorded and evaluated at appropriate window settings. Reformats: coronal and sagittal. F or radiation dose reduction, the following was used: automated exposure control, adjustment of mA and /or kV according to patient size. COMPARISON: 11/03/2023, 08/08/2023. FINDINGS: Image quality: Diagnostic. Lower chest: Bibasilar emphysematous change and bronchiectasis and bronchial wall thickening. Mild ca rdiomegaly. Liver: No solid mass. Gallbladder: Gallstones and gallbladder gravel. Mild prominence of the gallbladder wall, slightly gre ater than on the previous studies, with a question of mild inflammatory change in the adjacent fat. T he gallbladder is distended. Consider possible acute cholecystitis. Biliary tree: No intrahepatic or extrahepatic dilation, accounting for age. Spleen: No splenomegaly. Pancreas: No pancreatic ductal dilation. Adrenals: No adrenal nodule. Kidneys and ureters: Right hydronephrosis has resolved. A 3 mm right middle pole stone is less well v isualized in the presence of contrast. There are focal areas of renal cortical volume loss in the rig ht kidney consistent with remote insults. There are no renal masses. Left kidney and ureter are unrem arkable. Stomach, bowel and peritoneum: No gastric or small bowel dilation. No abnormal wall thickening. No pa thologic free fluid. Diverticulosis without evidence of acute diverticulitis. Lymph nodes: No central or retroperitoneal adenopathy. Vessels: The aorta is tortuous, making measurement of the size of a pseudoaneurysm somewhat difficult on axial imaging. The actual size of the aneurysm, previously described as 3.4 cm, is 3.9 cm in cran iocaudal dimension. This is stable from the previous study. Reference previous image 52 of series 2 a nd current image 59 of series 2. Moderate luminal thrombus is again noted Patent portal vein. PELVIS Reproductive organs: Unremarkable. Bladder: No abnormal wall thickening, accounting for underdistention. Pelvic lymph nodes: No pelvic adenopathy by size criteria. Bones: No aggressive osseous abnormality. 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 Scolioti c curvature. Remote ORIF of the left femoral neck.. Other: No significant ventral or inguinal hernia. IMPRESSION: 1. Resolution of previous right hydronephrosis and hydroureter. There is a nonobstructing right renal stone. 2. Gallbladder findings may potentially indicate acute cholecystitis. This is not definite. 3. Stable abdominal aortic aneurysm with moderate thrombus measuring 3.9 centimeter. 4. Basilar emphysematous change, bronchiectasis, mild cardiomegaly Reviewed by: Zheng Verdin MD on 12/13/2023 9:54 AM PDT Approved by: Zheng Verdin MD on 12/13/2023 9:54 AM PDT Station ID: [id number]
--- NOTE | 2023-12-13 11:29 | ED Physician Documentation ---
ED Addendum - Addendum Addendum: 12/13/23 11:26 The patient was signed out to me by Dr. Schuster at change of shift, pending CT of the abdomen and pelvis and reevaluation. She had presented with right flank pain and A-fib with mild RVR, in the setting of an admission within the last month or 2 for urosepsis. The patient had denied fevers or dysuria upon arrival. White blood cell count had been found to be 19.3 and so further workup ensued. The urinalysis was negative today. CT scan of the abdomen and pelvis showed a possible cholecystitis but ultrasound was recommended for this. Ultrasound was done and showed cholelithiasis without evidence of obstruction or of inflammation. I did review patient's prior laboratory studies and found that the patient usually has a white blood cell count of around 20 or higher. She had maintained an elevated white blood cell count in the 20s despite treatment with antibiotics for her pyelonephritis as well. Her white blood cell count today is actually little bit lower than when she was admitted and is identical to another white blood cell count that was done 12 days ago. At this point in time, I do not find a reason to continue the patient on any further courses of antibiotics. She has been given a single dose here on this visit but I think for now, we will await culture results. The patient is afebrile and fairly comfortable and her test results are actually reassuring otherwise. She has been given return precautions and should have a low threshold for return. Final impression: See original note Disposition: Discharged home in stable condition.
--- NOTE | 2023-12-13 12:00 | Ultrasound Report ---
PROCEDURE: Abdomen Limited INDICATIONS: R flank pain, poss william on CT TECHNIQUE: Real-time focused scanning was performed of the abdomen, with image documentation. COMPARISONS: CT abdomen and pelvis from today, CT abdomen and pelvis with contrast dated 08/08/2023. FINDINGS: Liver: Liver is normal in size and homogeneous in echotexture. Gallbladder: Multiple gallstones are present. Gallbladder wall is borderline, measuring 2.9 mm. There is no sonographic Briggs sign. No fluid around the gallbladder. Biliary ducts: Intrahepatic bile ducts are non-dilated. Extrahepatic bile duct caliber measures 5 m m. Normal is 6-7 mm or less in diameter, or 10 mm or less post-cholecystectomy. Pancreas: There is mild dilatation of the pancreatic duct, measuring 3.9 mm. This is a chronic findi ng. Right kidney: Small in size and echotexture. Right kidney measures 8.1 cm long. There is a 5 mm righ t renal stone. No solid masses. No complex renal cystic lesions which require follow-up. IVC: Intrahepatic inferior vena cava is patent. Miscellaneous: No free abdominal fluid. IMPRESSION: Cholelithiasis without evidence of acute cholecystitis. Chronic mild pancreatic duct. Right kidney is small and contains a nonobstructing stone. Reviewed by: Zheng Verdin MD on 12/13/2023 11:59 AM PDT Approved by: Zheng Verdin MD on 12/13/2023 11:59 AM PDT Station ID: [id number]
--- NOTE | 2023-12-13 13:31 | CONSULTATION NOTE ---
Referring Provider Name of Referring Provider:: ED (Kathryn) Consult Date: 12/13/23 Chief Complaint - Chief Complaint Chief Complaint: my back hurts History of Present Illness - Admitted From Admitted From:: ED - History Obtained From Records Reviewed: yes History obtained from: patient, records, ED provider - History of Present Illness HPI Comment/Other: Patient reports acute onset of right flank pain yesterday afternoon. The pain worsened overnight, prompting her to call EMS. The pain is sharp, constant, made worse with movement and palpation, and only made better with pain medication. Although, she feels it most strongly in her right flank, she also endorses right sided abdominal pain. She denies any nausea, vomiting, fevers, or chills. She has a history of kidney stones but says this pain felt different. She was noted to be in A fib with RVR by EMS en route, and was recently hospitalized, last month, with urosepsis and a fib with RVR. PMH also significant for COPD reqiring 4-10L O2 at home at baseline, stroke, and chronic back pain. She denies any prior abdominal surgeries. History - Past Medical History Cardiovascular: reports: Hypertension, Atrial flutter (with intermittent RVR), Atrial fibrillation, Arrhythmia Respiratory: reports: Asthma, COPD (on 4-10L O2 at home), Pneumonia, Shortness of breath, Other Neuro: reports: CVA Endocrine/Autoimmune: reports: None GI: reports: None [employer]CR[employer]E [employer] SUPERINTENDENT: reports: None : reports: Kidney stones HEENT: reports: Chronic hearing loss Psych: reports: Eating disorder Musculoskeletal: reports: Fatigue, Chronic back pain Derm: reports: None MRSA Hx?: No - Past Surgical History Ortho: reports: Hip replacement (hip pins place (not replaced)) - Family & Social History Family History Comment/Other: daughter denies Living arrangement: At home Living Situation: With friend(s) (adopted granddaughter Ben with apergers; Mariana "adopted" but not legally, does shopping, bills, sets up medications; errands not personal care; friend Keyshawn comes daily to help with meals, laundry- has known her for 50 years) Social History Notes: quit smoking 40 years ago; denies alcohol, other drug use - Substance History Use: Uses substance without health or social issues: NONE - POLST Patient has POLST: Yes POLST Status: Full Code Meds/Allgy - Home Medications Home Medications: Ambulatory Orders Medication Instructions Recorded Confirmed Albuterol Sulfate [Proventil Hfa 2 puffs INH Q4H PRN 03/21/19 11/05/23 Inhaler] Acetaminophen [Tylenol] 650 mg PO Q4HR PRN tab 09/06/22 11/05/23 Montelukast [Singulair] 10 mg PO QPM tab 09/06/22 11/05/23 Multivitamin W/Minerals [Theragran 1 tab PO DAILYWM tab 09/06/22 11/05/23 M] Simvastatin [Zocor] 20 mg PO QPM #0 09/06/22 11/05/23 Tamsulosin [Flomax] 0.4 mg PO DAILY #0 09/06/22 11/05/23 dexAMETHasone [Decadron] 2 mg PO DAILY tab 09/06/22 11/05/23 Furosemide [Lasix] 20 - 60 mg PO DAILY 11/05/23 11/05/23 Metoprolol Tartrate [Lopressor] 25 mg PO BID 11/05/23 11/05/23 Aspirin EC [Ecotrin] 81 mg PO DAILY 11/06/23 11/06/23 Mirtazapine [Remeron] 30 mg PO QPM 11/06/23 11/06/23 Cefpodoxime Proxetil [Vantin] 100 mg PO BID 6 Days #12 tab 11/07/23 Doxycycline [Vibramycin] 100 mg PO BID 6 Days #12 tab 11/07/23 - Allergies Allergies/Adverse Reactions: Allergies Allergy/AdvReac Type Severity Reaction Status Date / Time Penicillins Allergy Intermediate Hives, Verified 12/13/23 06:04 swelling aspirin Allergy Mild Rash Verified 12/13/23 06:04 piroxicam [From Feldene] Allergy Mild Rash Verified 12/13/23 06:04 meperidine [From Demerol] Allergy Unknown Verified 12/13/23 06:04 Review of Systems - Constitutional Constitutional: reports: Other (A complete 10 point review of symptoms is otherwise negative except for that noted in HPI and PMH.) Exam - Vital Signs Reviewed Vital Signs: Yes Vital Signs: Vital Signs x48h Temp Pulse Resp BP Pulse Ox O2 Flow Rate 12/13/23 12:42 93 14 114/66 100 5 12/13/23 12:00 96 16 129/69 100 12/13/23 11:30 89 15 97 12/13/23 11:00 85 16 96 12/13/23 10:55 86 16 103/65 97 12/13/23 08:55 19 115/65 92 12/13/23 06:40 127 H 20 114/65 95 5 12/13/23 06:00 36.7 C 131 H 22 123/65 94 - Physical Exam Comments/Other: GEN: No acute distress, appears stated age, alert and oriented HEENT: NCAT, dry mucous membranes, EOMI, +hirsutism, NCin place NEURO: CN II-XII grossly intact, no obvious focal deficits CV: Irregularly irregular rhythm, mildly tachycardic in the low 100s PULM: On 4 L O2, patient is able to speak about 1 sentence at a time ABD: Voluntary guarding throughout the abdomen, mild tenderness in the right upper quadrant, positive Rovsing sign, marked tenderness in the right lower quad rant without rebound. Positive psoas sign CIRCULATORY: Positive clubbing, no cyanosis or edema SKIN: A few bruises in various stages of healing in bilateral upper extremities LYMPH: no obvious lymphadenopathy MSK: 4/4 strength in all extremities PSYCH: Affect is appropriate Conclusion and Plan - Lab Results Laboratory Results 12/13/23 06:47: Lactic Acid 1.3 12/13/23 06:20: Urine Color YELLOW, Urine Clarity CLEAR, Urine pH 6.5, Ur Specific [place] 1.015, Urine Protein TRACE, Urine Glucose (UA) NEGATIVE, Urine Ketones NEGATIVE, Urine Occult Blood NEGATIVE, Urine Nitrite NEGATIVE, Urine Bilirubin NEGATIVE, Urine Urobilinogen 0.2 (NORMAL), Ur Leukocyte Esterase NEGATIVE, Urine RBC 0-5, Urine WBC 0-3, Ur Epithelial Cells RARE Renal Tubular, Ur Squamous Epith Cells FEW Squamous, Amorphous Sediment Few, Urine Bacteria Few, Urine Casts 6-10 Hyaline Casts, Urine Culture Comments NOT INDICATED 12/13/23 06:20: Sodium 144, Potassium 3.6, Chloride 90 L, Carbon Dioxide > 45 H*, Anion Gap TNP, BUN 28 H, Creatinine 0.8, Estimated GFR (MDRD) 68 L, Glucose 197 H, Calcium 9.7, Total Bilirubin 0.3, AST 18, ALT 10, Alkaline Phosphatase 70, Total Protein 5.8 L, Albumin 3.4, Globulin 2.4, Albumin/Globulin Ratio 1.4 12/13/23 06:20: WBC 19.3 H, RBC 4.57, Hgb 13.3, Hct 46.3, MCV 101.3 H, MCH 29.1, MCHC 28.7 L, RDW 12.5, Plt Count 388, MPV 10.0, Neut # (Auto) 14.9 H, Lymph # (Auto) 2.8, Benzie # (Auto) 1.0, Eos # (Auto) 0.3, Baso # (Auto) 0.1, Absolute Nucleated RBC 0.00, Nucleated RBC % 0.0 - Consultation Note Consultation Note: This is an 83-year-old female with: 1. Appendicitis with likely perforation The patient's history, physical, laboratory studies, and imaging are most consistent with this diagnosis. I personally interpreted the images and reviewed the report from the patient's CT scan of the abdomen and pelvis as well as her ultrasound done today. She has gallstones and some mild wall thickening of her gallbladder, however I feel this is most likely a result of the inflammation centered about her right lower quadrant. The patient's appendix is markedly inflamed with a fecalith present and significant surrounding fluid concerning for perforation. Given the patient's multiple medical comorbidities as outlined below, she is a poor surgical candidate. She is at significantly increased risk for cardiopulmonary complications including and prolonged intubation. I rec ommend treating this patient nonoperatively with IV meropenem 1 g every 8 hours. If her pain has not resolved in the next 3 to 4 days, I recommend rescanning with a CT of the abdomen and pelvis with contrast to evaluate for abscess formation that may be amenable to percutaneous drainage. -I recommend the patient be on a clear liquid diet until her pain improves. -I discussed this plan of care with the patient, emergency room team, and the medicine team in the hospital. 2. COPD on chronic oxygen, atrial fibrillation with intermittent RVR, history of stroke, history of kidney stones, chronic back pain - The patient is not currently anticoagulated and has not seen her barker operator since her last hospital admission. The patient is on between 4 and 10 L of oxygen at baseline The patient was in RVR on her way to the hospital, but her rate has slowed since that time Thank you for consulting me in the care of this patient! Surgery will continue to follow this patient during her hospital stay. The general surgeon on-call starting tomorrow morning, 10/13/2023, is Dr. Marianne Hess.
[2023-12-13] MEDS: MEROPENEM 1 GM in SODIUM CHLORIDE 0.9% MINIBAG 100 ML IV STA (13:59)
--- NOTE | 2023-12-13 15:30 | ED Physician Documentation ---
ED Addendum - Addendum Addendum: 12/13/23 15:14 After dictating the initial addendum based on the negative findings that were reported on the patient's imaging studies, I did receive a call from Dr. Verdin the radiologist, stating that he had not appreciated a possible appendicitis with rupture on the patient's CT. At this point in time, the patient's discharge was canceled and I spoke with Dr. Calzada instead. We discussed the case and the patient's comorbidities and Dr. Calzada did not feel this patient would be a good candidate for operative management. She stated that her plan would be to have the patient admitted to the hospital for IV antibiotics and possibly have a drain placed in a few days. She stated that she would discussed the case with the hospitalist on-call Dr. Arce. I then did hear from Dr. Calzada that she had discussed the case with the hospitalist, who is concerned over a long stay and does not feel the patient should be admitted here. I expressed my concern that it would be very difficult to transfer this patient, given that we already have a reasonable plan and we have met with difficulty transferring much more critically ill patients in a timely manner and this patient is unlikely to be excepted for transfer. I called and had an extended conversation with Dr. Arce with regard to the matter. She feels that the patient could possibly have surgery somewhere else with more capabilities, though the surgeon did not communicate to me that she felt that the patient necessarily needed transfer from a surgical standpoint. We have discussed the IV antibiotics and placement of a drain is in certain situations also an acceptable mode of treatment for ruptured appendicitis and that only the surgeon has the level of expertise to determine that. We could not come to an agreement on the matter and so after much discussion, I have asked our account clerk to present the patient's case to various facilities and see if anybody is willing to consider accepting this patient in transfer. I have spoken with surgical PA Shanell Gustafson at [facility] and she would like an echocardiogram done to see if the patient's pulmonary pressures are less than 45 at which time they will consider potentially accepting the patient in transfer. The patient is receiving her echo now. She has already received doses of cefepime and then at the surgeon's request, meropenem in the ED. She is signed out to Dr. Huerta at change of shift, pending final disposition.
--- NOTE | 2023-12-13 16:14 | ED Physician Documentation ---
ED Addendum - Addendum Addendum: 12/13/23 16:[address] Peralta at 3 PM shift change. The plan at that time was to see what her echo showed as far as her pulmonary pressure and if less than 45 could go to [facility]. I updated the surgical PA, Nasrin Gustafson who agrees that she can be transferred to [facility] from a surgical perspective but defers to a hospitalist for admission. Will try to get a hold of them. 12/13/23 19:35 I was called into the room by the nurse a little bit ago. The patient is refusing to go to [facility]. She does not like it there. I discussed with her that based on her comorbidities it would be best if she transferred to a tertiary facility, and she is now refusing to go anywhere else. She says she wants to stay here and I had a long discussion with her and she understands the risks of staying here or higher than going to a facility capable of pulmonary and cardiology evaluation. I spoke with Dr. Calzada who is okay with her being admitted to medicine but wanted me to stressed to the patient that her risks were higher here than at a tertiary facility which I did do. Telehealth h ospitalist paged at this time for consult. Condition: Serious Diagnosis: 1. Perforated appendicitis 12/13/23 20:[address] Santos, the hospitalist talk to her, the patient would like to be transferred again. We will restart the search, but I am pessimistic as we are having significant trouble transferring patients to tertiary facilities due to bed status in the area. 12/13/23 21:31 Accepted as an ED to ED transfer by Dr. Miri José, the [facility] surgeon and ED Physician Disposition: Transferred to tertiary facility
[2023-12-13] MEDS ORDERED: MORPHINE 10 MG/ML VIAL IVP PRN (20:15)
--- NOTE | 2023-12-13 20:31 | PROVIDER PROGRESS NOTE ---
[employer] Note - [employer] Note [employer] Note: ED called to admit patient. 83F c chronic hypoxemic resp failure 4L NC p/w perforated appendicitis. ED staff reported early Gen surg did not recommend patient to proceed with surgery at [facility] 2/2 comorbidities. Attempt to transfer patient to tertiary center was block by patient. ED reports Gen surgery and Day Hospitalist agreement for patient to stay with abx coverage. Saw patient and discuss with patient. She reports wanting surgery however not wanting transfer 2/2 poor experience at a outside hospital. Patient seems indecisive. Son LILIAM Vogt brought into the conversation and states request patient transfer. As patient wants surgery and son spoke with patient and both now in agreement to transfer. RN aware and will relay patient's decision to transfer to ED staff. Mariajose Santos DO Internal Medicine [facility] [place] [facility] Tele [employer]
[2023-12-13] MEDS: CEFEPIME 2 GM in SODIUM CHLORIDE 0.9% MINIBAG 100 ML IV SCH (20:33)
[2023-12-13] MEDS: metroNIDAZOLE 500 MG/100 ML 500 MG/100 ML BAG IV SCH (21:16)
[2023-12-13 21:46] VITALS: BP 117/76; O2SAT 99
[2023-12-14] MEDS ORDERED: MEROPENEM 1 GM in SODIUM CHLORIDE 0.9% MINIBAG 100 ML IV SCH (02:00)
== END 2023-12-13 22:34 | disposition short-term general hospital (02) ==
LOC: EDUNIT# → ED 05:59
DX: K35.32 Acute appendicitis with perforation, localized peritonitis, and gangrene, without abscess (principal); J44.9 Chronic obstructive pulmonary disease, unspecified; I48.91 Unspecified atrial fibrillation
CPT/HCPCS: 36415; 71045; 74177; 76705; 80053; 81001; 83605; 85025; 87040; 93005; 93307; 96365; 96366; 96367; 96375; 99285; A9270; J2185; P9612; Q9967; 51701; 87086

== ENCOUNTER 2023-12-29 07:29 | Observation (INO) ==
--- NOTE | 2023-12-29 07:34 | ED Physician Documentation ---
History of Present Illness Stated complaint Stated Complaint: LOW B ACK PX Chief complaint Chief Complaint: Abd Pain Additonal information Additional information: 83-year-old female with history of atrial fibrillation, chronic back pain, hypertension, COPD on home O2, pyelonephritis, cavitary lesion of lung, appendicitis, orthostatic hypotension, BPPV, UTI, stroke, shingles presents with back pain. History clarified from triage notes. Patient arrives very dyspneic, able to speak in a few words at a time, on her 4 L nasal cannula satting mid 90s. She has dry cough and feels SOB, like her COPD is worsening. She denies fevers or chills, chest pain, abdominal pain, nausea or vomiting or diarrhea, changes to bowels or bladder. She lives with her daughter at home. She also notes left-sided lower back pain, aching, not radiating, without dysuria, hematuria, urinary frequency. She denies focal numbness or weakness. She has trouble providing more history at this time, in the setting of dyspnea and not knowing her home medications. However, she does think she recently finished antibiotics and is not sure if she is taking p.o. steroids. I do see dexamethasone, low-dose of 2 mg daily, on her medication list. Per chart review, she was seen December 26 in clinic with recent history of ruptured appendicitis, having completed all antibiotics and without abdominal pain. She was discharged December 17. She is not anticoagulated. Review of Systems ROS Constitutional: no fever, no chills Eyes: no visual disturbance, no discharge Ears, Nose, Mouth, Throat: no rhinorrhea, no sore throat Cardiovascular: no chest pain, no palpitations Respiratory: +cough, shortness of breath Gastrointestinal: no abdominal pain, no vomiting, no diarrhea Genitourinary: no dysuria, no hematuria Musculoskeletal: +back pain, no neck stiffness Skin: no rash, no wound Neurological: no focal weakness, no focal numbness Meds/Allgy Home Medications Ambulatory Orders Medication Instructions Recorded Confirmed albuterol sulfate 90 mcg/actuation 2 puff inhalation Q4H PRN 03/21/19 12/26/23 aerosol inhaler (Proventil HFA) Shortness Of Air/Wheezing dexamethasone 4 mg tablet 2 mg (1/2 x 4 mg) PO DAILY 09/06/22 12/29/23 appetite stimulant montelukast 10 mg tablet 10 mg PO QPM copd 09/06/22 12/26/23 tboviyhnxqvc-bykeqllo-vldv 1 tab PO DAILYWM protein calorie 09/06/22 12/26/23 fumarate 19 mg-folic acid 400 mcg malnutrition tablet (Therapeutic-M) simvastatin 20 mg tablet (Zocor) 20 mg PO QPM hyperlipidemia ##0 09/06/22 12/26/23 furosemide 20 mg tablet 20 - 60 mg PO DAILY 11/05/23 12/29/23 metoprolol tartrate 25 mg tablet 25 mg PO BID 11/05/23 12/29/23 aspirin 81 mg tablet,delayed 81 mg PO DAILY 11/06/23 12/26/23 release mirtazapine 15 mg tablet 30 mg PO QPM appetite 11/06/23 12/26/23 stimulant/SLEEP tiotropium bromide 18 mcg capsule inhalation 12/26/23 12/26/23 with inhalation device potassium chloride 10 mEq 10 meq PO QDAY #90 tabs 12/27/23 12/29/23 tablet,extended release tamsulosin 0.4 mg capsule 0.4 mg PO DAILY urinary retention 12/27/23 12/29/23 #90 caps dexamethasone 2 mg tablet mg 12/29/23 Allergies Allergies Allergy/AdvReac Type Severity Reaction Status Date / Time Penicillins Allergy Intermediate Hives, Verified 12/29/23 07:39 swelling aspirin Allergy Mild Rash Verified 12/29/23 07:39 piroxicam (From Feldene) Allergy Mild Rash Verified 12/29/23 07:39 meperidine (From Demerol) Allergy Unknown Verified 12/29/23 07:39 [facility] Medical History Medical History (Updated 12/29/23 @ 10:09 by Cesar Durham MD) H/O nephrolithotomy with removal of calculi Surgical History Surgical History (Updated 12/26/23 @ 15:50 by FAN SANCHEZ LPN) S/P ureteral stent placement Family History Family History (Updated 12/26/23 @ 15:47 by FAN SANCHEZ LPN) Father Colon cancer Mother Parkinson disease Social History Social History (Updated 12/27/23 @ 09:46 by FAN SANCHEZ LPN) Smoking Status: Never smoker If you are a former smoker, when did you quit? (Date/Year): 1973 Number of Years Smoked: 5 Second hand tobacco smoke exposure: No Do you dip or chew tobacco?: No Do you vape?: No Patient requests smoking cessation consult: No Initiate information on smoking cessation: No Living arrangement: At home Living Condition: With friend(s) (adopted granddaughter Ben with apergers; Mariana "adopted" but not legally, does shopping, bills, sets up medications; errands not personal care; friend Keyshawn comes daily to help with meals, laundry- has known her for 50 years) Relationship: Level: Independent Home Mobility Equipment: Walker History of Abuse: No Are you sexually active?: No POLST Patient has POLST: Yes POLST Status: Full Code Exam Exam Const: Chronically ill and cachectic appearing, on 4 L nasal cannula satting 94%, dyspneic though able to speak in a few words at a time Eyes: PERRLA, EOMI ENT: mucous membranes moist Neck: supple, non-tender Resp: Tachypneic to mid 20s, with poor aeration and mild expiratory wheezing bilaterally Card: regular rate and rhythm, no murmurs Abd: non tender diffusely, no rigidity or rebound or guarding Back: no T or L spine tenderness, no CVA tenderness bilaterally; there is left lower back tenderness Extrem: no deformities, no swelling bilateral lower extremities, 2+ distal pulses all extremities Neuro: ANOx4, lead 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 grossly intact, intact sensation and strength all extremities, normal coordination Skin: no rash, warm and dry; chronic bruising noted Results Vitals Vitals: Vital Signs - 24 hr 12/29/23 07:36 12/29/23 07:43 12/29/23 07:58 Temperature 36.5 C Pulse Rate 101 H 78 Respiratory Rate 40 H 22 Blood Pressure 166/94 H O2 Saturation 94 Oxygen Delivery Method Nasal Cannula O2 Source Nasal cannula Nasal cannula If not protocol: Oxygen Flow, liters/minute 4 4 4 Pain Intensity 5 12/29/23 08:50 12/29/23 09:00 12/29/23 09:30 Temperature Pulse Rate 101 H 95 H Respiratory Rate 22 20 Blood Pressure 161/84 H 138/78 H O2 Saturation 97 97 Oxygen Delivery Method Nasal Cannula O2 Source Nasal cannula Nasal cannula If not protocol: Oxygen Flow, liters/minute 4 4 4 Pain Intensity 12/29/23 10:00 12/29/23 10:30 Temperature Pulse Rate 100 H 87 Respiratory Rate 20 20 Blood Pressure 144/79 H 137/79 H O2 Saturation 96 97 Oxygen Delivery Method O2 Source Nasal cannula Nasal cannula If not protocol: Oxygen Flow, liters/minute 4 4 Pain Intensity Oxygen O2 Source Nasal cannula Labs Labs: Laboratory Tests 12/29/23 12/29/23 12/29/23 07:50 08:25 08:41 WBC 14.7 H RBC 4.72 Hgb 13.9 Hct 46.8 MCV 99.2 H MCH 29.4 MCHC 29.7 L RDW 12.8 Plt Count 425 MPV 9.4 Neut # (Auto) 9.5 H Lymph # (Auto) 3.5 [place] # (Auto) 1.0 Eos # (Auto) 0.5 Baso # (Auto) 0.1 Absolute Nucleated RBC 0.00 Nucleated RBC % 0.0 VBG pH 7.391 VBG pCO2 71.4 H VBG pO2 169.5 H VBG HCO3 42.3 H VBG Total CO2 44.5 H VBG O2 Saturation 99.1 H VBG Base Excess 14.0 H Sodium 144 Potassium 3.9 Chloride 93 L Carbon Dioxide > 45 H* Anion Gap TNP BUN 25 H Creatinine 0.7 Estimated GFR (MDRD) 80 L Glucose 120 H Calcium 10.1 Total Bilirubin 0.4 AST 20 ALT 16 Alkaline Phosphatase 62 Troponin I High Sens 17.2 H* Total Protein 6.4 Albumin 3.7 Globulin 2.7 Albumin/Globulin Ratio 1.4 Nasal Influenza B PCR NOT DETECTED Nasal Influenza A PCR NOT DETECTED Nasal RSV (PCR) NOT DETECTED Nasal SARS-CoV-2 (PCR) NOT DETECTED 12/29/23 10:23 WBC RBC Hgb Hct MCV MCH MCHC RDW Plt Count MPV Neut # (Auto) Lymph # (Auto) [place] # (Auto) Eos # (Auto) Baso # (Auto) Absolute Nucleated RBC Nucleated RBC % VBG pH VBG pCO2 VBG pO2 VBG HCO3 VBG Total CO2 VBG O2 Saturation VBG Base Excess Sodium Potassium Chloride Carbon Dioxide Anion Gap BUN Creatinine Estimated GFR (MDRD) Glucose Calcium Total Bilirubin AST ALT Alkaline Phosphatase Troponin I High Sens 11.5 Total Protein Albumin Globulin Albumin/Globulin Ratio Nasal Influenza B PCR Nasal Influenza A PCR Nasal RSV (PCR) Nasal SARS-CoV-2 (PCR) PD Medical Decision Making ED course ED course: This patient presents both with dyspnea and left lower back pain. Regarding her dyspnea, this seems most clinically consistent with COPD exacerbation, though viral syndrome, pneumonia, pneumothorax, pulmonary edema, symptomatic anemia or other are possible in a broad differential I have considered including not limited to these. ACS or pulmonary embolism would be very unlikely given presentation. Regarding her back pain, I have also considered a broad differential including but not limited to pyelonephritis, nephrolithiasis, s train, sprain, AAA, shingles without current rash; note patient currently fully neurovascularly intact, with no pain over center of back. I am obtaining extensive and aggressive workup with CBC, CMP, EKG, troponin, blood gas, viral swab, chest x-ray, CT abdomen pelvis with contrast. I am giving immediate DuoNebs followed albuterol, Solu-Medrol, doxycycline, magnesium sulfate and will closely reassess. I anticipate she may improve with these treatments; if not, I will escalate to BiPAP. EKG mild sinus tachycardia with PVCs, QTc and QRS prolongation in the setting of intraventricular conduction delay, no clear acute ischemia. Note overall morphology is similar to December 13, 2023 EKG and November 04, 2023 EKG. Labs with leukocytosis to 14.7 however this is improved from 19.3 in late Se ptember. Note VBG obtained after some treatment, and shows pH near 7.4 with pCO2 71, and likely chronically elevated bicarb. CMP with likely chronically elevated bicarb, hypochloremia, mildly elevated high sensitive troponin in the setting of clear dyspnea; we will trend this. No LFT elevation. I agree with radiology reads of imaging on my independent review of imaging. CXR: "FINDINGS: Surgical changes and devices: None. Lungs and pleura: No pleural effusions or pneumothorax. Lung volumes. Findings of emphysematous change. No consolidation. Mediastinum: Mediastinal contours appear unchanged. Heart size is normal. Bones and chest wall: No suspicious bony lesions. Overlying soft tissues appear unremarkable. IMPRESSION: No consolidation identified. Emphysematous change. Reviewed by: Lewis Urena MD on 12/29/2023 8:08 AM PDT" CT: FINDINGS: Image quality: Diagnostic. Lower chest: Atelectasis. No pleural effusion. Liver: No solid mass. Focal fatty infiltration of the falciform ligament. Gallbladder: No pericholecystic fluid. Layering gallstones. A larger gallstone measuring 1.2 cm. Biliary tree: No intrahepatic or extrahepatic dilation, accounting for age. Spleen: No splenomegaly. Pancreas: No pancreatic ductal dilation. No peripancreatic fluid collection. Adrenals: No adrenal nodule. Kidneys and ureters: No hydronephrosis. No renal cystic lesion which requires follow up. No solid mass. Right kidney is atrophic with cortical scarring. Small nonobstructing right kidney stone. Stomach, bowel and peritoneum: Stomach is within normal limits. No small bowel obstruction. Diverticulosis. No diverticulitis demonstrated. Focus of inflammation at the tip of the appendix measuring 1.8 cm, (275), decreased compared to 12/13/2023. The other portions of the appendix are not dilated, (279). No free air seen. This abuts the adjacent ilium. Lymph nodes: No central or retroperitoneal adenopathy. Vessels: Infrarenal abdominal aortic aneurysm measuring 3.7 cm (250). Patent portal vein. PELVIS Reproductive organs: Uterus is anteverted. No free fluid in the pelvic cul-de-sac. Bladder: Distended. No stone. Pelvic lymph nodes: No pelvic adenopathy by size criteria. Bones: No aggressive osseous abnormality. Multilevel DDD. Screw fixation at the left hip. Other: No significant ventral or inguinal hernia. IMPRESSION: 1. Focus of inflammation at the tip of the appendix is distended with appendicitis. Overall decreased inflammation compared to 12/13/2023. No free air. 2. No small bowel obstruction. 3. Abdominal aortic aneurysm measuring 3.7 cm, unchanged. 4. Extensive DDD is unchanged. No compression fracture. 5. Small right kidney stone. Right renal atrophy. Gallstones. Results were communicated to Dr. Cesar Cronin at 12/29/2023 9:18 AM PDT. Reviewed by: Lewis Urena MD on 12/29/2023 9:20 AM PDT" No clear explanation for L lower back pain on CT. However, residual inflammation of appendix still present; note patient has completely benign abdomen. She is also improving with COPD treatment though still dyspneic; she now has moderate aeration with expiratory wheezing bilaterally. Given her baseline O2 re quirements, I think it appropriate to admit to observation. I am consulting hospitalist. Viral swab negative. I spoke with Dr. Arce, reviewing case at 1006; she kindly accepts admission. Repeat EKG/troponin: Repeat EKG shows normal sinus rhythm with similar morphology to prior today, interval prolongation in the setting of intraventricular conduction delay, no acute ischemia. PVCs present. Repeat troponin improved, now WNL. Patient admitted in improving condition. Discharge Plan Discharge Patient Disposition: 66 [facility] DC/Xfer Condition: Stable Clinical Impression: COPD exacerbation, Acute dyspnea Prescriptions: No Action albuterol sulfate [Proventil HFA] 6.7 GM HFA aerosol inhaler 2 puff inhalation Q4H PRN (Reason: Shortness Of Air/Wheezing) dexamethasone 4 MG tablet 2 mg PO DAILY 0RF montelukast 10 MG tablet 10 mg PO QPM 0RF vzokmllu-qce-tycr fum-folic ac [Therapeutic-M] 1 TAB tablet 1 tab PO DAILYWM 0RF simvastatin [Zocor] 20 MG tablet 20 mg PO QPM Qty: 0 0RF Patient Comments: TAKE 1 TABLET EVERY NIGHT AT BEDTIME furosemide 20 MG tablet 20 - 60 mg PO DAILY Rx Instructions: for swelling as directed metoprolol tartrate 25 MG tablet 25 mg PO BID aspirin 81 MG tablet,delayed release (DR/EC) 81 mg PO DAILY mirtazapine 15 MG tablet 30 mg PO QPM dexamethasone 2 mg tablet Patient Comments: take 1 tablet by mouth once daily for APPETITE tiotropium bromide 18 mcg capsule, w/inhalation device inhalation potassium chloride 10 mEq tablet extended release 10 meq PO QDAY Qty: 90 3RF tamsulosin 0.4 mg capsule 0.4 mg PO DAILY Qty: 90 3RF Patient Comments: take 1 capsule by mouth once daily at bedtime Print Language: Ivorian
[2023-12-29] MEDS ORDERED: ALBUTEROL NEB 2.5 MG/3 ML INH ONE (07:52)
[2023-12-29] MEDS: IPRATROPIUM/ALBUTEROL 3 ML NEB INH STA (07:55)
[2023-12-29] MEDS: ALBUTEROL NEB 2.5 MG/3 ML INH STA (07:55)
[2023-12-29 08:00] LABS: BASOPHILS # (AUTO) 0.1 10^3/uL (0.0-0.1); EOSINOPHILS # (AUTO) 0.5 10^3/uL (0.0-0.7); EOSINOPHILS % (AUTO) 3.5 %; HCT - HEMATOCRIT 46.8 % (37.0-47.0); HGB - HEMOGLOBIN 13.9 g/dL (12.0-16.0); LYMPHOCYTES # (AUTO) 3.5 10^3/uL (1.5-3.5); LYMPHOCYTES % (AUTO) 23.7 %; MEAN CORPUSCULAR HEMOGLOBIN 29.4 pg (27.0-31.0); MEAN CORPUSCULAR HGB CONC 29.7 g/dL (32.0-36.0); MEAN CORPUSCULAR VOLUME 99.2 fL (81.0-99.0); MEAN PLATELET VOLUME 9.4 fL (7.9-10.8); MONOCYTES % (AUTO) 6.6 %; NEUTROPHILS # (AUTO) 9.5 10^3/uL (1.5-6.6); NEUTROPHILS % (AUTO) 64.2 %; PLT - PLATELET COUNT 425 10^3/uL (130-450); RED BLOOD COUNT 4.72 10^6/uL (4.20-5.40); RED CELL DISTRIBUTION WIDTH 12.8 % (12.0-15.0); WHITE BLOOD COUNT 14.7 x10^3/uL (4.8-10.8)
--- NOTE | 2023-12-29 08:09 | XRAY Report ---
PROCEDURE: XR Chest 1V INDICATIONS: SOB, suspect COPD exacerbation TECHNIQUE: One view of the chest was acquired. COMPARISON: CXR 12/13/2023, 11/04/2023. FINDINGS: Surgical changes and devices: None. Lungs and pleura: No pleural effusions or pneumothorax. Lung volumes. Findings of emphysematous suarez ge. No consolidation. Mediastinum: Mediastinal contours appear unchanged. Heart size is normal. Bones and chest wall: No suspicious bony lesions. Overlying soft tissues appear unremarkable. IMPRESSION: No consolidation identified. Emphysematous change. Reviewed by: Lewis Urena MD on 12/29/2023 8:08 AM PDT Approved by: Lewis Urena MD on 12/29/2023 8:08 AM PDT Station ID: [id number]
[2023-12-29] MEDS: MAGNESIUM SULFATE 2 GRAM 2 GM/50 ML BAG IV ONE (08:12)
[2023-12-29] MEDS: methylPREDNISolone SUCCINATE 125 MG/2 ML VIAL IVP STA (08:12)
[2023-12-29] MEDS: DOXYCYCLINE 100 MG TABLET PO STA (08:12)
[2023-12-29 08:19] LABS: ALBUMIN 3.7 g/dL (3.2-5.5); ALBUMIN/GLOBULIN RATIO 1.4 (1.0-2.2); ALKALINE PHOSPHATASE 62 IU/L (42-121); ALT ALANINE AMINOTRANSFERASE 16 IU/L (10-60); AST ASPARTATE AMINOTRANSFERASE 20 IU/L (10-42); BILIRUBIN,TOTAL 0.4 mg/dL (0.2-1.0); BUN - BLOOD UREA NITROGEN 25 mg/dL (6-20); CALCIUM 10.1 mg/dL (8.5-10.3); CARBON DIOXIDE - CO2 > 45 mmol/L (21-32); CHLORIDE 93 mmol/L (101-111); CREATININE 0.7 mg/dL (0.6-1.3); GFR - MDRD 80 (>89); GLUCOSE 120 mg/dL (74-104); POTASSIUM 3.9 mmol/L (3.5-4.5); SODIUM 144 mmol/L (135-145); TOTAL PROTEIN 6.4 g/dL (6.4-8.9)
[2023-12-29] MEDS ORDERED: iohexoL-300 100 ML VIAL ONE (08:29)
[2023-12-29 08:31] LABS: VBG HCO3 42.3 mmol/L (23-28); VBG OXYGEN SATURATION 99.1 % (60-80); VBG PCO2 71.4 mmHg (41-51); VBG PH 7.391 (7.31-7.41); VBG PO2 169.5 mmHg (25-47); VBG TOTAL CO2 44.5 mmol/L (24-29)
--- NOTE | 2023-12-29 09:22 | CT Report ---
PROCEDURE: CT Abdomen/Pelvis W INDICATIONS: L sided back pain; recent ruptured appendicitis CONTRAST: 100ml omni 300 TECHNIQUE: After the administration of intravenous contrast, a CT scan of the abdomen and pelvis was performed. Images were recorded and evaluated at appropriate window settings. Reformats: coronal and sagittal. F or radiation dose reduction, the following was used: automated exposure control, adjustment of mA and /or kV according to patient size. COMPARISON: CT abdomen and pelvis 12/13/2023. FINDINGS: Image quality: Diagnostic. Lower chest: Atelectasis. No pleural effusion. Liver: No solid mass. Focal fatty infiltration of the falciform ligament. Gallbladder: No pericholecystic fluid. Layering gallstones. A larger gallstone measuring 1.2 cm. Biliary tree: No intrahepatic or extrahepatic dilation, accounting for age. Spleen: No splenomegaly. Pancreas: No pancreatic ductal dilation. No peripancreatic fluid collection. Adrenals: No adrenal nodule. Kidneys and ureters: No hydronephrosis. No renal cystic lesion which requires follow up. No solid mas s. Right kidney is atrophic with cortical scarring. Small nonobstructing right kidney stone. Stomach, bowel and peritoneum: Stomach is within normal limits. No small bowel obstruction. Diverticu losis. No diverticulitis demonstrated. Focus of inflammation at the tip of the appendix measuring 1.8 cm, (275), decreased compared to 12/13/2023. The other portions of the appendix are not dilated, (2 79). No free air seen. This abuts the adjacent ilium. Lymph nodes: No central or retroperitoneal adenopathy. Vessels: Infrarenal abdominal aortic aneurysm measuring 3.7 cm (250). Patent portal vein. PELVIS Reproductive organs: Uterus is anteverted. No free fluid in the pelvic cul-de-sac. Bladder: Distended. No stone. Pelvic lymph nodes: No pelvic adenopathy by size criteria. Bones: No aggressive osseous abnormality. Multilevel DDD. Screw fixation at the left hip. Other: No significant ventral or inguinal hernia. IMPRESSION: 1. Focus of inflammation at the tip of the appendix is distended with appendicitis. Overall decreased inflammation compared to 12/13/2023. No free air. 2. No small bowel obstruction. 3. Abdominal aortic aneurysm measuring 3.7 cm, unchanged. 4. Extensive DDD is unchanged. No compression fracture. 5. Small right kidney stone. Right renal atrophy. Gallstones. Results were communicated to Dr. Cesar Cronin at 12/29/2023 9:18 AM PDT. Reviewed by: Lewis Urena MD on 12/29/2023 9:20 AM PDT Approved by: Lewis Urena MD on 12/29/2023 9:20 AM PDT Station ID: [id number]
[2023-12-29] MEDS: iohexoL-300 100 ML VIAL IVP ONE (09:45)
[2023-12-29 10:13] LABS: INFLUENZA A- RESP PCR PANEL NOT DETECTED; INFLUENZA B - RESP PCR PANEL NOT DETECTED; RSV- RESP PCR PANEL NOT DETECTED; SARS-CoV-2 -RESP PCR PANEL NOT DETECTED
[2023-12-29] MEDS ORDERED: SODIUM CHLORIDE FLUSH 0.9% 10 ML SYRINGE IVP PRN (10:55)
[2023-12-29] MEDS ORDERED: ONDANSETRON 4 MG/2 ML VIAL IVP PRN (10:55)
[2023-12-29] MEDS ORDERED: oxyCODONE 5 MG TABLET PO PRN (10:55)
[2023-12-29] MEDS ORDERED: ALBUTEROL NEB 2.5 MG/3 ML INH PRN (10:55)
[2023-12-29] MEDS ORDERED: ONDANSETRON ODT 4 MG TABLET TL PRN (10:55)
[2023-12-29] MEDS: SODIUM CHLORIDE 0.9% 1,000 ML IV SCH (12:14)
[2023-12-29] MEDS: ENOXAPARIN 40 MG/0.4 ML SYRINGE SUBQ SCH (12:14)
[2023-12-29] MEDS: IPRATROPIUM/ALBUTEROL 3 ML NEB INH SCH (13:33)
--- NOTE | 2023-12-29 13:36 | HISTORY & PHYSICAL EXAMINATION ---
Chief Complaint Chief Complaint Chief Complaint: shortness of breath History of Present Illness Admitted From Admitted From:: home History Obtained From Records Reviewed: Expanse History obtained from: Dr. Durham and patient and adopted daughter Mariana Exam Limitations: none History of Present Illness HPI Comment/Other: Has a historyThis absolutely ezio elderly female of COPD and is on 4 L of nasal cannula at home. She also has chronic atrial fibrillation not on anticoagulation, history of stroke, hypertension and hyperlipidemia. She was just in the hospital December 13 through December 17 for perforated appendix. She has chronic protein calorie malnutrition due to inadequate caloric intake. She was just seen by her primary care provider on December 26. She was seen for hospital follow-up and her potassium was refilled. Her tamsulosin was refilled. She had normal vital signs, denied any abdominal pain, and no mention of her COPD review of systems was present. She appears chronically ill, appears older than stated age, was very frail but was not in any acute distress. Her respirations were 14. Pulse was 99. She was 94% saturated on 2 L nasal cannula. Between that visit and today, she started having low back pain that was getting worse and very uncomfortable (superimposed on chronic back pain) and had also developed a new cough cough and felt like she could not breathe. As the days progressed she became more more short of breath. Was increasing her nasal cannula to 4 L to feel better. The review of systems from the ER provider was without fever, chills, chest pain, abdominal pain, nausea/vomiting, diarrhea or changes to urinary habits. I spoke to her adopted daughter Mariana, who lives with her, and she describes the patient as basically bedbound. She just does not want to get out of bed. Even encouraging her to get up to go to the bathroom which is a 10 step walk from her bed, is almost nearly impossible. In the bathroom she has risers. It makes it easier for her to get off the toilet but she has to be strongly encouraged to get up to go to the bathroom. The patient really likes how she is taking care of in the hospital and likes the fact that the nurses have a bedside commode or a pure wick. She does not eat. She will say that something looks good and wants it made for her but will only take 1 or 2 bites and then stop.Last summer she was diagnosed with severe protein calorie malnutrition. She was aspirating had had cavitary lesion. She was 47 kg. Today she is 46 kg.She is severely dyspneic with any activity.She aches all over. But particularly in her sacrum and lower back. I also spoke to her son and GINNA. He confirms everything Mariana has just said This summer has been rough. She had been hospitalized in August 2022 and what ever ground she had gained from summer 2022 to summer 2023 has been lost. For she had a UTI with urosepsis and infected stone resulting in a stent. Then last month she came in with perforated appendicitis. The ER provider examined her and found her to be chronically ill-appearing with cachexia on 4 L nasal cannula. Dyspneic and able to speak a few words at a time. Her pulse rate was 101. Respiration rate was 40. She had mild expiratory wheezing bilaterally. CT scan of her back and Chest x-ray were done for evaluation. She did not have any consolidations or pneumonia. CT of her back and abdomen and pelvis had diverticulosis without diverticulitis. No free fluid. Gallbladder appeared normal in spite of a gallstone 1.2. She had a screw fixation in her left hip. An aneurysm of 3.7 cm. Extensive degenerative disc disease in the spine. There is no clear explanation for her back pain. Viral swab was negative. In the end he discussed the case with me because he felt that she should be in observation for her COPD exacerbation. She was still wheezing in spite of his intervention of nebulizer and steroid. Examined the patient in the emergency room and she is still tachypneic. Although her respiratory rate is no longer 40, she still in the high 20s. She is tripoding. Using her rib cage muscles to breathe. And I will be placing her in observation for COPD exacerbation with acute on chronic hypercapnia and hypoxia Meds/Allgy Home Medications Ambulatory Orders Medication Instructions Recorded Confirmed albuterol sulfate 90 mcg/actuation 2 puff inhalation Q4H PRN 03/21/19 12/26/23 aerosol inhaler (Proventil HFA) Shortness Of Air/Wheezing dexamethasone 4 mg tablet 2 mg (1/2 x 4 mg) PO DAILY 09/06/22 12/29/23 appetite stimulant montelukast 10 mg tablet 10 mg PO QPM copd 09/06/22 12/26/23 [id number]-[id number] 1 tab PO DAILYWM protein calorie 09/06/22 12/26/23 fumarate 19 mg-folic acid 400 mcg malnutrition tablet (Therapeutic-M) simvastatin 20 mg tablet (Zocor) 20 mg PO QPM hyperlipidemia ##0 09/06/22 12/26/23 furosemide 20 mg tablet 20 - 60 mg PO DAILY 11/05/23 12/29/23 metoprolol tartrate 25 mg tablet 25 mg PO BID 11/05/23 12/29/23 aspirin 81 mg tablet,delayed 81 mg PO DAILY 11/06/23 12/26/23 release mirtazapine 15 mg tablet 30 mg PO QPM appetite 11/06/23 12/26/23 stimulant/SLEEP tiotropium bromide 18 mcg capsule inhalation 12/26/23 12/26/23 with inhalation device potassium chloride 10 mEq 10 meq PO QDAY #90 tabs 12/27/23 12/29/23 tablet,extended release tamsulosin 0.4 mg capsule 0.4 mg PO DAILY urinary retention 12/27/23 12/29/23 #90 caps dexamethasone 2 mg tablet mg 12/29/23 Allergies Allergies Allergy/AdvReac Type Severity Reaction Status Date / Time Penicillins Allergy Intermediate Hives, Verified 12/29/23 07:39 swelling aspirin Allergy Mild Rash Verified 12/29/23 07:39 piroxicam (From Feldene) Allergy Mild Rash Verified 12/29/23 07:39 meperidine (From Demerol) Allergy Unknown Verified 12/29/23 07:39 [facility] Medical History Medical History (Updated 12/29/23 @ 17:41 by Valerie Arce MD) DNI (do not intubate) POLST 08/2022 in scanned documents Personal history of poliomyelitis L>R leg weak Severe protein-calorie malnutrition started in 05/2022 w admit to [facility] for hip. then pneum 07/2022. weak. failing. 57 Kg 08/2022. Remeron 08/2022. Stroke (cerebrum) 1991 Fall multiple falls since 2021. Left displaced femoral neck fracture fall w transfer to [facility] 05/2022 Chronic respiratory failure with hypercapnia started ~2009. Influenza B UTI (urinary tract infection) hx of UTIs. 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 Not a candidate for pacer Cavitary lesion of lung found with 07/2022 admit for pna. attributed to aspiration Hypertension Urinary retention Atrial fibrillation not on anticoagulation. Echo nml 12/13/23. EF 55-60%. sclerosis w/o stenosis H/O nephrolithotomy with removal of calculi Surgical History Surgical History (Updated 12/29/23 @ 16:04 by Valerie Arce MD) Status post hip surgery 05/2022 S/P ureteral stent placement Family History Family History (Updated 12/26/23 @ 15:47 by FAN SANCHEZ LPN) Father Colon cancer Mother Parkinson disease Social History Social History (Updated 12/29/23 @ 16:28 by Valerie Arce MD) Smoking Status: Former smoker If you are a former smoker, when did you quit? (Date/Year): 1973 Number of Years Smoked: 5 Second hand tobacco smoke exposure: No Do you dip or chew tobacco?: No Do you vape?: No Patient requests smoking cessation consult: No Initiate information on smoking cessation: No Smoking Status Details: "smoked for awhile during my 20's,but thats more than 50 years ago Living arrangement: At home Marital Status: Single Living Condition: With caregiver(s) and With friend(s) (adopted granddaughter Ben with apergers; Mariana "adopted" but not legally, does shopping, bills, sets up medications; errands not personal care; friend Keyshawn comes daily to help with meals, laundry- has known her for 50 years) Support Person: Yes Relationship: Physical Activity: Bedfast Level: Assisted Home Mobility Equipment: Walker and Wheeled walker Do you feel safe in your home environment?: Yes Suffered physical, verbal, emotional, or financial abuse?: No History of Abuse: No ETOH Use: None Substance Use: denies use Are you sexually active?: No POLST Patient has POLST: Yes POLST Status: DNR (with selective treatment) Review of Systems Constitutional Reports: Fatigue, Malaise, Weakness, Poor appetite and Weight loss Eyes Reports: Vision loss; Denies: Amaurosis or Change in vision Ears, nose, mouth, and throat Reports: Hearing loss, Change in hearing and Vertigo; Denies: Post nasal drip, Nasal obstruction, Difficulty swallowing, Swelling of lips/tongue or Mouth lesions Cardiovascular Reports: Irregular heart rate, shortness of breath with exertion and Decreased exercise tolerance Respiratory Reports: Shortness of breath, Cough and Wheezing; Denies: Sputum production or Change in phlegm color Gastrointestinal Reports: Poor appetite and Feeling full early; Denies: Vomiting, Eligio blood emesis, Heartburn, Diarrhea, Constipation or Difficulty swallowing Genitourinary Reports: Urinary frequency, Urinary incontinence and Flank pain; Denies: Painful urination Musculoskeletal Reports: Back pain, Joint pain, Stiffness, Muscle pain and Muscle aches Integumentary/Breast Denies: Rash, New lesion or Changes in skin color Neurological Reports: General weakness, Weakness in extremities, Vertigo and Memory problems; Denies: Headache, Slurred speech or Difficulty communicating thoughts Psychiatric Reports: Loss of interest and Memory loss Endocrine Reports: Fatigue and Cold intolerance Hematologic/Lymphatic Reports: Anemia; Denies: Petechiae, Easy bleeding or Blood clots Allergic/Immunologic Reports: Wheezing Prior Level of Functionality: He is basically bedbound. Relies on her caregivers to get out of bed. Can feed herself. But needs help with dressing. Uses a wheelchair or walker. Exam Exam Pale, fatigued appearing, quiet elderly female that appears very frail. Currently comfortable at 45 degrees. Eyes closed but opens them to my voice Constitutional Frail and cachectic HENMT normocephalic, head/scalp atraumatic and hearing grossly normal bilaterally Eyes PERRL and EOMs intact bilaterally Lymph no lymphadenopathy noted Chest inspection of chest normal Respiratory breath sounds equal bilaterally and no use of accessory muscles Diffuse, scattered, faint wheezing. No tripoding. Cardiovascular normal heart rate noted, no JVD and no edema Gastrointestinal abdomen normal to inspection, abdomen soft to palpation, nontender to palpation and nontender to percussion Genitourinary no CVA tenderness Extremities no tenderness and full ROM Severe loss of muscle mass diffusely in her limbs. She is "skin and bone" Neurology network contract manager II-XII intact and no focal motor deficit noted She does not want to get out of bed for me to check Romberg. She does follow instructions. Processes. She moves her arms and legs for me at my request and lifts them up off the bed but does not want to sit up or stand she is tired Psychiatry mental status grossly normal and oriented x3 Skin no mottling Conclusion/Plan Problem List (1) Acute and chronic respiratory failure: Plan: This unfortunate female smoked for many many years and quit probably 30 years ago. In spite of that, developed emphysema approximately 2009. Was on oxygen by 2014. Her mobility is severely limited by dyspnea with any activity. She is now essentially bedbound. She is oxygen dependent. This current exacerbation seems to be associated by a flare of back pain. But her viral panel is negative. Chest x-ray is negative for infection. She received steroids and nebulizers in the ER and is already slowly improving. Family says that she always has a faint wheezing and that if I have a goal of having no wheezing, it may be unrealistic. I reviewed her labs and assessed them for the last few month. Her CO2 serum has been steadily rising over the last year. Starting with her appendicitis admission her serum CO2 is greater than 45 and unmeasurable. The last time she had a blood gas was last summer and her a pCO2 was 64 I have spoken to her adopted granddaughter Mariana. I explained that she is describing an elderly patient with end-stage emphysema, hypoxemia room air, activity that severely limited by dyspnea, increasing ER visits or hospitalizations for respiratory infections and/or respiratory failure, weight loss, and increasing oxygen dependency. I strongly feel that this patient will be candidate for hospice. She was already seen by Laverne Bhatt from palliative care last summer. Mariana has never really thought about this. Plan: Observation status DuoNeb RT every 6 hours will be ordered by me I will also order albuterol every 2 hours as needed I will order Solu-Medrol 40 mg 3 times daily for 3 doses I will not order antibiotics at this time. Mariana will speak to her family. They certainly do not need to make a decision now. But I will recommend hospice. Qualifiers: Respiratory failure complication: hypoxia and hypercapnia Qualified Code(s): J96.21 - Acute and chronic respiratory failure with hypoxia; J96.22 - Acute and chronic respiratory failure with hypercapnia (2) COPD exacerbation: Plan: As above (3) Atrial fibrillation: Plan: Rate is slightly uncontrolled. She goes from 99-101. But this is in context of someone who is getting albuterol. She does get metoprolol tartrate at home and I will make sure she gets on that here. I will not anticoagulate since she is not on anticoagulation on admission Qualifiers: Atrial fibrillation type: longstanding persistent Qualified Code(s): I 48.11 - Longstanding persistent atrial fibrillation (4) Hypertension: Plan: She is currently normotensive. As stated for her atrial fibrillation I will resume her metoprolol Qualifiers: Hypertension type: primary hypertension Qualified Code(s): I10 - Essential (primary) hypertension (5) Adult failure to thrive: Plan: She has severe protein calorie malnutrition. The patient is on Remeron in the outpatient setting. I will resume that while here. Today is Sunday. Nutrition services cannot see her till Sunday. But I think the patient will be discharged by tomorrow. I will continue to encourage fluid intake and add Ensure 3 times daily while she is here Lab Results 12/29/23 07:50 12/29/23 07:50 Diagnostic Imaging Results Diagnostic Imaging Results: positive Final report reviewed Diagnostic Imaging Results Comments: Chest x-ray is without pneumonia or consolidation Abdomen pelvis CT does not have pleural effusions. She does have some atelectasis. Her organs have focal fatty infiltration of the liver, a large gallstone of 1.2 but no cholecystitis, normal spleen. Right kidney atrophic with cortical scarring. Small nonobstructing right kidney stone. Diverticulosis without diverticulitis. No free air. This CAT scan was done for back pain/lumbar pain and she has inflammation at the tip of the appendix but it is improved from the last CT. She has an abdominal aortic aneurysm measuring 3.7 cm. Extensive degenerative disc disease of the lumbar spine but no fractures. EKG Results EKG Interpreted Independently: No Core Measures Anticipated LOS I expect patient to be DC'd or transferred within 96 hours.: Yes DVT/VTE - Prophylaxis VTE/DVT Device ordered at admit?: Yes
[2023-12-29] MEDS: methylPREDNISolone SUCCINATE 40 MG/ML VIAL IVP SCH (14:02)
[2023-12-29] MEDS: MONTELUKAST 10 MG TABLET PO SCH (21:09)
[2023-12-29] MEDS: SODIUM CHLORIDE FLUSH 0.9% 10 ML SYRINGE IVP SCH (21:43)
[2023-12-30 07:52] LABS: ABG PH 7.43 (7.35-7.45); ABG PO2 113 mmHg (80-100)
[2023-12-30 07:53] LABS: ABG BASE EXCESS 14.1 mmol/L (-2.0-3.0); ABG OXYGEN SATURATION 98 % (94-98); ALLEN TEST POSITIVE
[2023-12-30 07:54] LABS: ABG PCO2 63 mmHg (34-45)
[2023-12-30] MEDS: ACETAMINOPHEN 325 MG TABLET PO PRN (08:28)
[2023-12-30 08:46] VITALS: O2SAT 91
--- NOTE | 2023-12-30 08:47 | PHARMACY PROGRESS NOTE ---
Best Possible Medication History Admit Date and Time: 12/29/23 [id number] Processed by: Pharmacy Medications reviewed in ED?: Yes Medication History completed: Yes Patient Interview: Completed Secondary Source(s): Pharmacy records and Insurance records [facility] Statement: As the person ultimately responsible for medication therapy, providers are able to order a medication from an existing home medication list in [facility] via the "Reconcile Routine" prior to Confirmation of that medication by academic support assistant. Such practice is discouraged except when the physician, in their clinical judgment, deems that a medical need exists for a medication without regard to previous use.
--- NOTE | 2023-12-30 11:26 | Discharge Summary ---
Discharge Summary Admit Date: 12/29/23 Discharge Date: 12/30/23 Discharging Provider: Valerie Arce MD Primary Care Provider: NGUYEN Hollingsworth Code Status: Do Not Attempt Resuscitation DIAGNOSES Discharge Diagnoses with Status of Each Condition: 1. Acute on chronic respiratory failure with hypercapnia and hypoxia 2. End-stage COPD 3. Chronic atrial fibrillation not on anticoagulation 4. Essential hypertension 5. Adult failure to thrive 6. Severe protein calorie malnutrition 7. Bedbound status HPI History of Present Illness: This absolutely ezio elderly female has a history of COPD and is on 4 L of nasal cannula at home. She also has chronic atrial fibrillation not on anticoagulation, history of stroke, hypertension and hyperlipidemia. She was just in the hospital December 13 through December 17 for perforated appendix. She has chronic protein calorie malnutrition due to inadequate caloric intake. She was just seen by her primary care provider on December 26. She was seen for hospital follow-up and her potassium was refilled. Her tamsulosin was refilled. She had normal vital signs, denied any abdominal pain, and no mention of her COPD review of systems was present. She appears chronically ill, appears older than stated age, was very frail but was not in any acute distress. Her respirations were 14. Pulse was 99. She was 94% saturated on 2 L nasal cannula. Between that visit and today, she started having low back pain that was getting worse and very uncomfortable (superimposed on chronic back pain) and had also developed a new cough cough and felt like she could not breathe. As the days progressed she became more more short of breath. Was increasing her nasal cannula to 4 L to feel better. The review of systems from the ER provider was without fever, chills, chest pain, abdominal pain, nausea/vomiting, diarrhea or changes to urinary habits. I spoke to her adopted daughter Mariana, who lives with her, and she describes the patient as basically bedbound. She just does not want to get out of bed. Even encouraging her to get up to go to the bathroom which is a 10 step walk from her bed, is almost nearly impossible. In the bathroom she has risers. It makes it easier for her to get off the toilet but she has to be strongly encouraged to get up to go to the bathroom. The patient really likes how she is taking care of in the hospital and likes the fact that the nurses have a bedside commode or a pure wick. She does not eat. She will say that something looks good and wants it made for her but will only take 1 or 2 bites and then stop.Last summer she was diagnosed with severe protein calorie malnutrition. She was aspirating had had cavitary lesion. She was 47 kg. Today she is 46 kg.She is severely dyspneic with any activity.She aches all over. But particularly in her sacrum and lower back. I also spoke to her son and DPOA. He confirms everything Mariana has just said This summer has been rough. She had been hospitalized in August 2022 and what ever ground she had gained from summer 2022 to summer 2023 has been lost. For she had a UTI with urosepsis and infected stone resulting in a stent. Then last month she came in with perforated appendicitis. The ER provider examined her and found her to be chronically ill-appearing with cachexia on 4 L nasal cannula. Dyspneic and able to speak a few words at a time. Her pulse rate was 101. Respiration rate was 40. She had mild expiratory wheezing bilaterally. CT scan of her back and Chest x-ray were done for evaluation. She did not have any consolidations or pneumonia. CT of her back and abdomen and pelvis had diverticulosis without diverticulitis. No free fluid. Gallbladder appeared normal in spite of a gallstone 1.2. She had a screw fixation in her left hip. An aneurysm of 3.7 cm. Extensive degenerative disc disease in the spine. There is no clear explanation for her back pain. Viral swab was negative. In the end he discussed the case with me because he felt that she should be in observation for her COPD exacerbation. She was still wheezing in spite of his intervention of nebulizer and steroid. Examined the patient in the emergency room and she is still tachypneic. Although her respiratory rate is no longer 40, she still in the high 20s. She is tripoding. Using her rib cage muscles to breathe. And I will be placing her in observation for COPD exacerbation with acute on chronic hypercapnia and hypoxia CONSULTS | PROCEDURES Procedures: 1. Chest x-ray has no consolidation, no acute changes. She has emphysema. 2. Abdomen pelvis CT done for left-sided back pain and history of recently ruptured appendicitis. She has a gallstone but no acute cholecystitis. She has diverticulosis but no diverticulitis. The inflamed appendix is smaller now than it was in November. The bones are without osseous abnormality, multilevel degenerative disc disease, screw fixation left hip. No hydronephrosis. She does have an infrarenal abdominal aortic aneurysm of 3.7 cm. HOSPITAL COURSE Hospital Course: She was placed on fixed dose DuoNeb. As needed albuterol. Singulair. And Solu-Medrol 40 mg IV push 3 times daily. Her tachypnea and use of accessory muscles gradually improved. At rest she is now stable. However, asking her to speak or having her try and get up, decompensates her COPD quite easily and she gets very short of breath and tachypneic. Blood gas was done on the day of discharge and her pH is 7.429, pCO2 63, pO2 112. This is on her 4 L that she takes at home and we have explained to her that she should probably be on 2 L. I feel that she is stable for discharge to home. She then explained that she really did not want to go home. Her back always hurts. She says that she finds it easier to be in the hospital because its less exertion for her. Her son and adopted daughter both told me in separate conversations on the night of admission that they are always trying to encourage her to get out of bed. She lives downstairs. And the daughter has her climb up the stairs to get her dinner. Even when her favorite meal is cooked, she only takes 1 or 2 bites. Daughter also really encouraged her to get out of bed and walk to the bathroom. Daughter really feels that a bedside commode is not necessary. The patient feels like she is at end-of-life. Daughter and son are of a different thought process. They feel that if she just "got out of bed and did things for herself" and she would get better. The patient discussed going to a [place] but has no way of paying for it. She also discussed wanting hospice. I explained that she does meet 5 out of the 6 criteria. She is hypoxemic at rest on room air. Her activity is severely limited by dyspnea and/or weakness. She has increasing his levels to the ER or hospitalizations for respiratory infection and/or respiratory failure. She has weight loss. She has increasing oxygen dependency. And although her family disagrees,she states that she has an unacceptable quality of life and she has no desire to continue living or coming to the hospital. I had already broached the topic of hospice with her daughter Mariana on the night of admission. Mariana was tearful, grieving. I explained to Mariana that she and the family does not need to make a decision right now. They should have a family conference and try make a decision. Separate from that conversation with Mariana, the patient brought up hospice today. So although the patient would like to stay here and live the rest of her days here so that her daughters do not find her " in bed", I am discharging her to home. I am encouraging the patient to talk to her daughter Mariana. And I will be ordering a hospice interval informational visit at the patient's request. She has identified [facility] as the agency she would like to go with. But she is not ready to start hospice until she talks to her family first. Asking her to follow-up with her primary care provider. Consider starting her on opioids for back pain. Even if it is Roxanol drops. I am also asking that she bring her oxygen down to 2 L. At discharge she is a 46 kg, 5 foot 6 inch frail female. Who spends most of her time sleeping. She is comfortable at about 30 degrees without tachypnea or use of accessory muscles. Blood pressure is 143/81, pulse is 98, respirations 18, temperature 36.5. She is 91 saturated on 4 L. She has bilateral temporal wasting. She is alert, oriented to person, place, time and situation. Diffuse, diffuse generalized weakness and reduced lean body mass. Not quite cachectic but getting there was almost present bilateral temporal wasting and prominent rib cage. Lungs are clear at this time with regards to wheezing but overall diminished breath sounds. Sitting her up and having her have a conversation with me makes her respiratory rate go from 18->>28. After carrying on a 45 minute conversation about what is going on and why she can't live at the hosptial, she goes down to 20. Abd is soft, nontender. Extremities have trace edema around her ankles. No focal deficits. She is sad and angry. Feels her daughters Yvonne and Mariana just leave her abandoned in the basement and she wants more care. "They just don't understand and want me to go up the stairs for my food." "I want to say here to . I justs want to close my eyes and ." This document was made in part using voice recognition software. While efforts are made to proofread this document, sound alike and grammatical errors may occur. ALLERGIES Allergies Allergy/AdvReac Type Severity Reaction Status Date / Time Penicillins Allergy Intermediate Hives, Verified 12/29/23 07:39 swelling aspirin Allergy Mild Rash Verified 12/29/23 07:39 piroxicam (From Feldene) Allergy Mild Rash Verified 12/29/23 07:39 meperidine (From Demerol) Allergy Unknown Verified 12/29/23 07:39 MEDICATIONS Ambulatory Orders Medication Instructions Recorded Confirmed montelukast 10 mg tablet 10 mg PO QPM copd 09/06/22 12/30/23 [id number]-[id number]-wthn 1 tab PO DAILYWM protein calorie 09/06/22 12/30/23 fumarate 19 mg-folic acid 400 mcg malnutrition tablet (Therapeutic-M) simvastatin 20 mg tablet (Zocor) 20 mg PO QPM hyperlipidemia ##0 09/06/22 12/30/23 furosemide 20 mg tablet 20 - 60 mg PO DAILY 11/05/23 12/29/23 metoprolol tartrate 25 mg tablet 25 mg PO BID 11/05/23 12/29/23 aspirin 81 mg tablet,delayed 81 mg PO DAILY 11/06/23 12/30/23 release mirtazapine 15 mg tablet 30 mg PO QPM appetite 11/06/23 12/30/23 stimulant/SLEEP tiotropium bromide 18 mcg capsule 1 cap inhalation QAM 12/26/23 12/30/23 with inhalation device potassium chloride 10 mEq 10 meq PO QDAY #90 tabs 12/27/23 12/29/23 tablet,extended release tamsulosin 0.4 mg capsule 0.4 mg PO DAILY urinary retention 12/27/23 12/29/23 #90 caps dexamethasone 2 mg tablet 2 mg PO DAILY 12/29/23 12/30/23 methocarbamol 500 mg tablet 500 mg PO QID #120 tabs 12/30/23 LABS 12/29/23 07:50 12/29/23 07:50 TIME SPENT Time Spent in Discharge (Minutes): 35 Discharge Plan Discharge Patient Disposition: 06 Home Health Service Condition: Stable Medically Cleared Date:: 12/30/23 Prescriptions: New methocarbamol 500 mg tablet 500 mg PO QID Qty: 120 0RF Continued montelukast 10 MG tablet 10 mg PO QPM 0RF Therapeutic-M 1 TAB tablet 1 tab PO DAILYWM 0RF simvastatin [Zocor] 20 MG tablet 20 mg PO QPM Qty: 0 0RF Patient Comments: TAKE 1 TABLET EVERY NIGHT AT BEDTIME furosemide 20 MG tablet 20 - 60 mg PO DAILY Rx Instructions: for swelling as directed metoprolol tartrate 25 MG tablet 25 mg PO BID aspirin 81 MG tablet,delayed release (DR/EC) 81 mg PO DAILY mirtazapine 15 MG tablet 30 mg PO QPM dexamethasone 2 mg tablet 2 mg PO DAILY Patient Comments: take 1 tablet by mouth once daily for APPETITE tiotropium bromide 18 mcg capsule, w/inhalation device 1 cap inhalation QAM potassium chloride 10 mEq tablet extended release 10 meq PO QDAY Qty: 90 3RF tamsulosin 0.4 mg capsule 0.4 mg PO DAILY Qty: 90 3RF Patient Comments: take 1 capsule by mouth once daily at bedtime Diet: Regular Interventions: Belongings Inventory Last Done: 12/30/23 13:20 Discharge Last Done: 12/30/23 13:20 Discharge Checklist - Nursing Last Done: 12/30/23 13:25 Health Concerns: You have end-stage emphysema. Emphysema started to be manifesting approximately 2009 and by 2012 you are on oxygen. The disease is continue to slowly deteriorate your overall status and you are severely low on oxygen when you are off it on room air. Your activity is severely limited by shortness of breath and weakness. You have been having several visits to the ER or hospitalizations because of your emphysema over the last couple of years. You have been losing weight. With your last hospitalization you were already skinny at 48 kg. Today you are 46 kg. Your oxygen needs are going up. In that context, you now presented with back pain, and increasing shortness of breath because of your back. We found you to have severe arthritis in your back, and exacerbation of your emphysema because of the pain. We have given you IV steroids. Low-dose muscle relaxants. And you are back to your baseline. You have stated that you would like to stay in the hospital or go to a [place]. You state that because you know that you are not doing well overall and will most likely pass away in the near future. Your greatest fear is that your poor daughters will find you at home. You would rather be in a [place] when that happens, so that your family does not have to deal with that. We have talked you about hospice. You do meet the criteria for hospice. I have also talked to your daughter about this. But these are very preliminary conversations. While you are definitive and stating that you want hospice, and you have even chosen [facility] hospice, you would like some informational visits at your house. And you would like your family to have time to process you want hospice. Care Plan Goals: As already stated, you know that you would like to pass away comfortably you just do not want your daughters to find you. Assessment: Patient is alert, oriented to person, place, time, and situation. She has surprised us this by bringing up the topic of end-of-life care and hospice on her own. Plan of Treatment: 1. She is to return to home with Family should aim for an O2 goal of 90%. She may need less than 4 L. While in the hospital she only needed 2 to 3 L to maintain O2 sats. 2. Please follow-up with her primary care provider in hospital follow-up in the next 2 weeks. 3. I will consult hospice and have them do an informational visit at her house with family present. Print Language: Bahraini Follow-up Care: Shyla Haider PA-C [Primary Care Provider] -
[2023-12-30] MEDS: MORPHINE SOL 10 MG/0.5 ML ORAL SYRINGE PO ONE (13:39)
== END 2023-12-30 14:10 | disposition home health service (06) ==
LOC: ED 07:29 → MS2 07:29 → ED 11:02 → MS2 11:02
PROVIDERS: ADMIT Specialist; ATTEND Specialist
DX: E43 Unspecified severe protein-calorie malnutrition; K80.20 Calculus of gallbladder without cholecystitis without obstruction; M54.50 Low back pain, unspecified; E78.5 Hyperlipidemia, unspecified; J96.21 Acute and chronic respiratory failure with hypoxia; J44.1 Chronic obstructive pulmonary disease with (acute) exacerbation; Z68.1 Body mass index [BMI] 19.9 or less, adult; K57.30 Diverticulosis of large intestine without perforation or abscess without bleeding; J43.9 Emphysema, unspecified; I48.20 Chronic atrial fibrillation, unspecified; R62.7 Adult failure to thrive; Z99.81 Dependence on supplemental oxygen; G89.29 Other chronic pain; I10 Essential (primary) hypertension; Z74.01 Bed confinement status; J96.22 Acute and chronic respiratory failure with hypercapnia; Z87.440 Personal history of urinary (tract) infections

== ENCOUNTER 2024-01-17 15:37 | Inpatient (IN) ==
--- NOTE | 2024-01-17 15:46 | ED Physician Documentation ---
History of Present Illness Stated complaint Stated Complaint: SOA Chief complaint Chief Complaint: Resp History obtained from History obtained from: Patient and EMS Additonal information Additional information: Patient is an 83-year-old female who presents to the emergency department stating that she has a history of COPD. Increased work of breathing since last night. Usually uses 2 to 4 L of oxygen at home, she states she was on 8 L last night. Unable to speak today. She received 1 DuoNeb treatment from EMS, and is currently on her second. Denies any fevers or chills. No cough or congestion. No abdominal pain or chest pain. Has had similar episodes previously which required admission. Has a history of atrial fibrillation. Review of Systems Constitutional Denies: Fever or Chills Cardiovascular Reports: shortness of breath with exertion; Denies: chest pain Respiratory Reports: Shortness of breath and Cough Gastrointestinal Denies: Abdominal pain, Abdominal distention, Nausea or Vomiting Meds/Allgy Home Medications Ambulatory Orders Medication Instructions Recorded Confirmed montelukast 10 mg tablet 10 mg PO QPM copd 09/06/22 01/17/24 [id number]-[id number]-[id number] 1 tab PO DAILYWM protein calorie 09/06/22 01/17/24 fumarate 19 mg-folic acid 400 mcg malnutrition tablet (Therapeutic-M) simvastatin 20 mg tablet (Zocor) 20 mg PO QPM hyperlipidemia ##0 09/06/22 01/17/24 furosemide 20 mg tablet 20 - 60 mg PO DAILY 11/05/23 01/17/24 metoprolol tartrate 25 mg tablet 25 mg PO BID 11/05/23 01/17/24 aspirin 81 mg tablet,delayed 81 mg PO DAILY 11/06/23 01/17/24 release mirtazapine 15 mg tablet 30 mg PO QPM appetite 11/06/23 01/17/24 stimulant/SLEEP tiotropium bromide 18 mcg capsule 1 cap inhalation QAM 12/26/23 12/30/23 with inhalation device potassium chloride 10 mEq 10 meq PO QDAY #90 tabs 12/27/23 01/17/24 tablet,extended release tamsulosin 0.4 mg capsule 0.4 mg PO DAILY urinary retention 12/27/23 01/17/24 #90 caps dexamethasone 2 mg tablet 2 mg PO DAILY 12/29/23 01/17/24 methocarbamol 500 mg tablet 500 mg PO QID #120 tabs 12/30/23 01/17/24 Allergies Allergies Allergy/AdvReac Type Severity Reaction Status Date / Time Penicillins Allergy Intermediate Hives, Verified 01/17/24 16:14 swelling aspirin Allergy Mild Rash Verified 01/17/24 16:14 piroxicam (From Feldene) Allergy Mild Rash Verified 01/17/24 16:14 meperidine (From Demerol) Allergy Unknown Verified 01/17/24 16:14 [facility] Medical History Medical History (Updated 01/17/24 @ 19:21 by Jan Baez MD) DNI (do not intubate) POLST 08/2022 in scanned documents Personal history of poliomyelitis L>R leg weak Severe protein-calorie malnutrition started in 05/2022 w admit to [facility] for hip. then pneum 07/2022. weak. failing. 57 Kg 08/2022. Remeron 08/2022. Stroke (cerebrum) 1991 Fall multiple falls since 2021. Left displaced femoral neck fracture fall w transfer to [facility] 05/2022 Chronic respiratory failure with hypercapnia started ~2009. Influenza B UTI (urinary tract infection) hx of UTIs. 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 Not a candidate for pacer Cavitary lesion of lung found with 07/2022 admit for pna. attributed to aspiration Hypertension Urinary retention Atrial fibrillation not on anticoagulation. Echo nml 12/13/23. EF 55-60%. sclerosis w/o stenosis H/O nephrolithotomy with removal of calculi Surgical History Surgical History (Updated 12/29/23 @ 16:04 by Valerie Arce MD) Status post hip surgery 05/2022 S/P ureteral stent placement Family History Family History (Updated 12/26/23 @ 15:47 by FAN SANCHEZ LPN) Father Colon cancer Mother Parkinson disease Social History Social History (Updated 12/29/23 @ 16:28 by Valerie Arce MD) Smoking Status: Former smoker If you are a former smoker, when did you quit? (Date/Year): 1973 Number of Years Smoked: 5 Second hand tobacco smoke exposure: No Do you dip or chew tobacco?: No Do you vape?: No Patient requests smoking cessation consult: No Initiate information on smoking cessation: No Living arrangement: At home Marital Status: Single Living Condition: With caregiver(s) and With friend(s) (adopted granddaughter Ben with apergers; Mariana "adopted" but not legally, does shopping, bills, sets up medications; errands not personal care; friend Keyshawn comes daily to help with meals, laundry- has known her for 50 years) Support Person: Yes Relationship: Physical Activity: Bedfast Level: Assisted Home Mobility Equipment: Walker and Wheeled walker Do you feel safe in your home environment?: No (does not get help at home per pt) Suffered physical, verbal, emotional, or financial abuse?: No History of Abuse: No ETOH Use: None Substance Use: denies use Are you sexually active?: No POLST Patient has POLST: Yes POLST Status: DNR (with selective treatment) Exam Constitutional Thin, cachectic female, appears to have increased work of breathing HENMT normocephalic, head/scalp atraumatic and oropharynx normal Eyes PERRL Neck/C-Spine trachea midline Chest inspection of chest normal Respiratory Diminished breath sounds bilaterally, tachypneic Cardiovascular Tachycardic, irregular Gastrointestinal abdomen soft to palpation, nontender to palpation and nondistended Genitourinary no CVA tenderness Back/Pelvis no thoracic spine tenderness and no lumbar spine tenderness Extremities No edema Neurology GCS 15 Psychiatry mental status grossly normal and oriented x3 Skin skin color normal Results Vitals Vitals: Vital Signs - 24 hr 01/17/24 15:39 01/17/24 15:49 01/17/24 16:10 Temperature 36.5 C Temperature Source Temporal Artery Scan Pulse Rate 80 148 H Respiratory Rate 22 29 H Blood Pressure 149/71 H 149/71 H O2 Saturation 97 96 Oxygen Delivery Method Nasal Cannula O2 Source Non-rebreather mask Nasal cannula If not protocol: Oxygen Flow, liters/minute 6 4 4 Pain Intensity 0 0 01/17/24 17:36 01/17/24 18:18 01/17/24 18:43 Temperature Temperature Source Pulse Rate 123 H 133 H 125 H Respiratory Rate 22 22 18 Blood Pressure 125/83 124/86 O2 Saturation 98 96 Oxygen Delivery Method O2 Source Nasal cannula Room air If not protocol: Oxygen Flow, liters/minute 4 Pain Intensity 0 01/17/24 18:43 01/17/24 18:48 01/17/24 18:53 Temperature Temperature Source Pulse Rate 101 H 110 H 114 H Respiratory Rate 26 H 22 24 Blood Pressure 118/73 118/73 120/78 O2 Saturation 98 96 97 Oxygen Delivery Method O2 Source Nasal cannula Nasal cannula Nasal cannula If not protocol: Oxygen Flow, liters/minute 4 4 4 Pain Intensity 0 0 0 Oxygen O2 Source Nasal cannula Labs Labs: Laboratory Tests 01/17/24 01/17/24 15:55 16:00 WBC 15.0 H RBC 4.73 Hgb 13.5 Hct 46.0 MCV 97.3 MCH 28.5 MCHC 29.3 L RDW 12.8 Plt Count 338 MPV 9.5 Neut # (Auto) 9.9 H Lymph # (Auto) 3.8 H Stoddard # (Auto) 0.8 Eos # (Auto) 0.3 Baso # (Auto) 0.1 Absolute Nucleated RBC 0.00 Nucleated RBC % 0.0 Sodium 143 Potassium 3.7 Chloride 95 L Carbon Dioxide 41 H* Anion Gap 7.0 BUN 18 Creatinine 0.8 Estimated GFR (MDRD) 68 L Glucose 159 H Calcium 9.6 Total Bilirubin 0.4 AST 16 ALT 14 Alkaline Phosphatase 63 Total Protein 6.2 L Albumin 3.5 Globulin 2.7 Albumin/Globulin Ratio 1.3 Nasal Adenovirus (PCR) NOT DETECTED Nasal B. parapertussis DNA (PCR) NOT DETECTED Nasal Coronavir 229E PCR NOT DETECTED Nasal Coronavir HKU1 PCR NOT DETECTED Nasal Coronavir NL63 PCR NOT DETECTED Nasal Coronavir OC43 PCR NOT DETECTED Nasal Enterovir/Rhinovir PCR NOT DETECTED Nasal Influenza B PCR NOT DETECTED Nasal Influenza A PCR NOT DETECTED Nasal Parainfluen 1 PCR NOT DETECTED Nasal Parainfluen 2 PCR NOT DETECTED Nasal Parainfluen 3 PCR NOT DETECTED Nasal Parainfluen 4 PCR NOT DETECTED Nasal RSV (PCR) NOT DETECTED Nasal B.pertussis DNA PCR NOT DETECTED Nasal C.pneumoniae (PCR) NOT DETECTED Ashutosh Human Metapneumo PCR NOT DETECTED Nasal M.pneumoniae (PCR) NOT DETECTED Nasal SARS-CoV-2 (PCR) NOT DETECTED Rads (name of study) cxr: Relevant Findings:: Final report received PD Medical Decision Making ED course Complexity details: reviewed results, considered differential and d/w patient ED course: Patient was given DuoNeb treatment, albuterol, Solu-Medrol, magnesium. Still having difficulty breathing. She was given diltiazem for the A-fib RVR. No beds available currently, there might be a bed available later. Patient refuses transfer to any other facility. Patient is signed out to Dr. Mcdonald for reassessment and likely will need admission for COPD exacerbation and A-fib with RVR. May need to be started on diltiazem drip. This document was made in part using voice recognition software. While efforts are made to proofread this document, sound alike and grammatical errors may occur. Discharge Plan Discharge Clinical Impression: Acute and chronic respiratory failure with hypoxia, Atrial fibrillation with RVR, COPD with acute exacerbation Prescriptions: No Action montelukast 10 MG tablet 10 mg PO QPM 0RF Therapeutic-M 1 TAB tablet 1 tab PO DAILYWM 0RF simvastatin [Zocor] 20 MG tablet 20 mg PO QPM Qty: 0 0RF Patient Comments: TAKE 1 TABLET EVERY NIGHT AT BEDTIME furosemide 20 MG tablet 20 - 60 mg PO DAILY Rx Instructions: for swelling as directed metoprolol tartrate 25 MG tablet 25 mg PO BID aspirin 81 MG tablet,delayed release (DR/EC) 81 mg PO DAILY mirtazapine 15 MG tablet 30 mg PO QPM dexamethasone 2 mg tablet 2 mg PO DAILY Patient Comments: take 1 tablet by mouth once daily for APPETITE methocarbamol 500 mg tablet 500 mg PO QID Qty: 120 0RF tiotropium bromide 18 mcg capsule, w/inhalation device 1 cap inhalation QAM potassium chloride 10 mEq tablet extended release 10 meq PO QDAY Qty: 90 3RF tamsulosin 0.4 mg capsule 0.4 mg PO DAILY Qty: 90 3RF Patient Comments: take 1 capsule by mouth once daily at bedtime Print Language: Pakistani Stand Alone Forms: PCP List
[2024-01-17] MEDS: methylPREDNISolone SUCCINATE 125 MG/2 ML VIAL IVP STA (15:53)
[2024-01-17 16:02] LABS: BASOPHILS # (AUTO) 0.1 10^3/uL (0.0-0.1); BASOPHILS % (AUTO) 0.8 %; EOSINOPHILS # (AUTO) 0.3 10^3/uL (0.0-0.7); EOSINOPHILS % (AUTO) 1.9 %; HGB - HEMOGLOBIN 13.5 g/dL (12.0-16.0); LYMPHOCYTES # (AUTO) 3.8 10^3/uL (1.5-3.5); LYMPHOCYTES % (AUTO) 25.4 %; MEAN CORPUSCULAR HEMOGLOBIN 28.5 pg (27.0-31.0); MEAN CORPUSCULAR HGB CONC 29.3 g/dL (32.0-36.0); MEAN CORPUSCULAR VOLUME 97.3 fL (81.0-99.0); MEAN PLATELET VOLUME 9.5 fL (7.9-10.8); MONOCYTES # (AUTO) 0.8 10^3/uL (0.0-1.0); MONOCYTES % (AUTO) 5.2 %; NEUTROPHILS # (AUTO) 9.9 10^3/uL (1.5-6.6); PLT - PLATELET COUNT 338 10^3/uL (130-450); RED BLOOD COUNT 4.73 10^6/uL (4.20-5.40); RED CELL DISTRIBUTION WIDTH 12.8 % (12.0-15.0)
--- NOTE | 2024-01-17 16:16 | XRAY Report ---
PROCEDURE: XR Chest 1V INDICATIONS: cough TECHNIQUE: One view of the chest was acquired. COMPARISON: 12/29/2023 FINDINGS: Surgical changes and devices: None. Lungs and pleura: No pleural effusions or pneumothorax. Lungs are clear. Mediastinum: Mediastinal contours appear normal. Heart size is normal. Bones and chest wall: No suspicious bony lesions. Overlying soft tissues appear unremarkable. IMPRESSION: No acute cardiopulmonary process. Reviewed by: Kim Fitzgerald MD on 01/17/2024 4:15 PM PDT Approved by: Kim Fitzgerald MD on 01/17/2024 4:15 PM PDT Station ID: [id number]
[2024-01-17 16:29] LABS: ALBUMIN 3.5 g/dL (3.2-5.5); ALBUMIN/GLOBULIN RATIO 1.3 (1.0-2.2); BILIRUBIN,TOTAL 0.4 mg/dL (0.2-1.0); CALCIUM 9.6 mg/dL (8.5-10.3); CREATININE 0.8 mg/dL (0.6-1.3); POTASSIUM 3.7 mmol/L (3.5-4.5); TOTAL PROTEIN 6.2 g/dL (6.4-8.9)
[2024-01-17 17:07] LABS: B. PARAPERTUSSIS- RESP PCR PAN NOT DETECTED; B. PERTUSSIS- RESP PCR PANEL NOT DETECTED; C. PNEUMONIAE- RESP PCR PANEL NOT DETECTED; CORONAVIRUS 229E-RESP PCR NOT DETECTED; CORONAVIRUS HKU1-RESP PCR NOT DETECTED; CORONAVIRUS NL63-RESP PCR NOT DETECTED; CORONAVIRUS OC43-RESP PCR NOT DETECTED; HUMAN METAPNEUMOVIRUS NOT DETECTED; INFLUENZA A- RESP PCR PANEL NOT DETECTED; INFLUENZA B - RESP PCR PANEL NOT DETECTED; M. PNEUMONIAE- RESP PCR PANEL NOT DETECTED; PARAINFLUENZA VIRUS 1 NOT DETECTED; PARAINFLUENZA VIRUS 2 NOT DETECTED; PARAINFLUENZA VIRUS 3 NOT DETECTED; PARAINFLUENZA VIRUS 4 NOT DETECTED; RHINOVIRUS/ENTEROVIRUS NOT DETECTED; RSV- RESP PCR PANEL NOT DETECTED; SARS-CoV-2 -RESP PCR PANEL NOT DETECTED
[2024-01-17] MEDS: ALBUTEROL NEB 2.5 MG/3 ML INH STA (17:30)
[2024-01-17] MEDS: MAGNESIUM SULFATE 2 GRAM 2 GM/50 ML BAG IV ONE (17:32)
[2024-01-17] MEDS: diltiaZEM INJ 5 MG/ML VIAL IVP STA (18:38)
--- NOTE | 2024-01-18 10:42 | ED Physician Documentation ---
ED Addendum Addendum Addendum: Tiffany Bethea is an 83-year-old female left in my care at shift change this morning anticipating a bed becoming available for admission. I evaluated the patient this morning, she continues to have respiratory difficulty, does not feel much different than she did last night. She has not received any further treatment since her initial evaluation. This morning she has a heart rate of 120-140 and atrial fibrillation and I evaluated her volume at the bedside with POCUS and found her IVC to be 1.49 cm consistent with euvolemia. This morning we are performing additional treatment with another 125 mg of methylprednisolone a DuoNeb treatment and 10 mg of diltiazem. I do not see it likely that this patient will be discharged from the emergency department today. We are still anticipating a bed becoming available this morning. Discharge Plan Discharge Patient Disposition: [facility] DC/Xfer Condition: Fair Clinical Impression: Acute and chronic respiratory failure with hypoxia, Atrial fibrillation with RVR, COPD with acute exacerbation Interventions: ED Admission Assessment Last Done: 01/18/24 12:27
[2024-01-18] MEDS: methylPREDNISolone SUCCINATE 125 MG/2 ML VIAL IVP STA (10:48)
[2024-01-18] MEDS: diltiaZEM INJ 5 MG/ML VIAL IVP STA (10:50)
[2024-01-18] MEDS: IPRATROPIUM/ALBUTEROL 3 ML NEB INH STA (11:01)
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
[2024-01-18] MEDS ORDERED: SODIUM CHLORIDE FLUSH 0.9% 10 ML SYRINGE IVP PRN (12:07)
[2024-01-18 13:18] LABS: BASOPHILS % (AUTO) 0.1 %; HCT - HEMATOCRIT 43.1 % (37.0-47.0); LYMPHOCYTES # (AUTO) 0.8 10^3/uL (1.5-3.5); LYMPHOCYTES % (AUTO) 4.1 %; MEAN CORPUSCULAR HEMOGLOBIN 28.8 pg (27.0-31.0); MEAN CORPUSCULAR HGB CONC 30.2 g/dL (32.0-36.0); MEAN CORPUSCULAR VOLUME 95.6 fL (81.0-99.0); MEAN PLATELET VOLUME 9.7 fL (7.9-10.8); MONOCYTES # (AUTO) 0.3 10^3/uL (0.0-1.0); MONOCYTES % (AUTO) 1.4 %; NEUTROPHILS # (AUTO) 17.8 10^3/uL (1.5-6.6); NEUTROPHILS % (AUTO) 93.8 %; PLT - PLATELET COUNT 384 10^3/uL (130-450); RED BLOOD COUNT 4.51 10^6/uL (4.20-5.40); RED CELL DISTRIBUTION WIDTH 13.1 % (12.0-15.0)
[2024-01-18 13:37] LABS: CALCIUM 9.6 mg/dL (8.5-10.3); CREATININE 0.9 mg/dL (0.6-1.3)
[2024-01-18] MEDS: METOPROLOL TARTRATE 25 MG TABLET PO SCH (14:08)
[2024-01-18] MEDS: predniSONE 20 MG TABLET PO SCH (14:08)
[2024-01-18] MEDS ORDERED: METOPROLOL 5 MG/5 ML VIAL IVP PRN (15:24)
--- NOTE | 2024-01-18 16:22 | PT Plan of Care ---
PT Inpatient Plan of Care DIAGNOSIS Diagnosis: COPD exacerbation Diagnosis: respiratory failure Referring Provider: Abi Blanca Patient Status: Inpatient CHIEF COMPLAINT Chief Complaint: back pain, limited mobility Onset of Chief Complaint: several days [employer]ER MEDICAL/SURGICAL HISTORY Medical History (Updated 01/18/24 @ 15:23 by NGUYEN Link) DNI (do not intubate) POLST 08/2022 in scanned documents Personal history of poliomyelitis L>R leg weak Severe protein-calorie malnutrition started in 05/2022 w admit to [facility] for hip. then pneum 07/2022. weak. failing. 57 Kg 08/2022. Remeron 08/2022. Stroke (cerebrum) 1991 Fall multiple falls since 2021. Left displaced femoral neck fracture fall w transfer to [place] 05/2022 Chronic respiratory failure with hypercapnia started ~2009. Influenza B UTI (urinary tract infection) hx of UTIs. 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 Not a candidate for pacer Cavitary lesion of lung found with 07/2022 admit for pna. attributed to aspiration Hypertension Urinary retention Atrial fibrillation not on anticoagulation. Echo nml 12/13/23. EF 55-60%. sclerosis w/o stenosis H/O nephrolithotomy with removal of calculi Surgical History (Updated 12/29/23 @ 16:04 by Valerie Arce MD) Status post hip surgery 05/2022 S/P ureteral stent placement BALANCE/FUNCTIONAL RESULTS Sitting Balance: Good Standing Balance: Fair ASSESSMENT Assessment: Pt is an 83yo F referred for PT eval d/t deconditioning/FTT. Pt admitted to hospital d/t COPD exacerbation, 2-4L O2 at baseline. Extensive medical history and pt is known to this PT having treated her in IP setting in 2022. Please see chart for medical history. Pt lives w/ her daughter and granddaughter in a multilevel home. She has steps to enter the house but is able to bypass steps if she enters through her daughter's door. She has a flight of stairs down to her bedroom but has a lift chair to the lower level. Pt has a walker, cane and w/c at home and per pt report and chart review, pt has been primarily bedbound for several months. Upon PT eval, pt on 2L O2, sats 95%. Pt states she "doesn't want to do anything." PT clarifies goals of PT care with pt and pt states she does not want to stand, walk, or be indep with ADLs at this time. PT clarifies that pt has option to work with rehab to improve mobility and indep or decline therapy services if she prefers more caregiver/nsg support. Pt states she wants the latter. This information was reported to hospitalist who will discuss goals of care with pt. At this time, pt does not appear to be a good rehab candidate and may benefit from LTC placement for total care assist. PATIENT/FAMILY GOALS Patient/Family Goals: to go home GOALS Improve gait ability to:: Min A Advance Assistive Device to:: Front Wheeled Walker Increase distance walked to (in feet):: 5 Reduce verbal cues to:: 2 Reduce physical cues to:: 1 Improve Sitting Balance to:: Fair PLAN Frequency: Evaluation only, no further P.T. Duration: Until goals are met DISCHARGE RECOMMENDATIONS Discharge Location: LTC Other Discharge Equipment: has fww, cane and w/c Transport Needs at Discharge: B.L.S Other: BLS d/t pt bedbound
[2024-01-18] MEDS: diltiaZEM 30 MG TABLET PO SCH (17:31)
[2024-01-18] MEDS: SODIUM CHLORIDE FLUSH 0.9% 10 ML SYRINGE IVP SCH (17:31)
--- NOTE | 2024-01-18 17:38 | PHARMACY PROGRESS NOTE ---
Best Possible Medication History Admit Date and Time: 01/18/24 1152 Processed by: Pharmacy Medications reviewed in ED?: No Medication History completed: Yes Patient Interview: Pt unable to participate Secondary Source(s): Other family member (HÉCTOR GREENE) and Insurance records [facility] Statement: As the person ultimately responsible for medication therapy, providers are able to order a medication from an existing home medication list in [facility] via the "Reconcile Routine" prior to Confirmation of that medication by clerical and office support workers. Such practice is discouraged except when the physician, in their clinical judgment, deems that a medical need exists for a medication without regard to previous use.
[2024-01-18] MEDS: MIRTAZAPINE 15 MG TABLET PO SCH (21:03)
[2024-01-18] MEDS: MONTELUKAST 10 MG TABLET PO SCH (21:03)
[2024-01-18] MEDS: HEPARIN 5,000 UNIT/ML VIAL SUBQ SCH (21:04)
[2024-01-18] MEDS: ATORVASTATIN 10 MG TABLET PO SCH (21:04)
[2024-01-19 06:02] LABS: BASOPHILS % (AUTO) 0.1 %; HCT - HEMATOCRIT 41.3 % (37.0-47.0); HGB - HEMOGLOBIN 12.4 g/dL (12.0-16.0); LYMPHOCYTES # (AUTO) 1.1 10^3/uL (1.5-3.5); LYMPHOCYTES % (AUTO) 6.2 %; MEAN CORPUSCULAR HEMOGLOBIN 28.8 pg (27.0-31.0); MEAN CORPUSCULAR VOLUME 95.8 fL (81.0-99.0); MEAN PLATELET VOLUME 9.7 fL (7.9-10.8); MONOCYTES # (AUTO) 0.4 10^3/uL (0.0-1.0); MONOCYTES % (AUTO) 2.1 %; NEUTROPHILS # (AUTO) 15.8 10^3/uL (1.5-6.6); NEUTROPHILS % (AUTO) 91.1 %; PLT - PLATELET COUNT 392 10^3/uL (130-450); RED BLOOD COUNT 4.31 10^6/uL (4.20-5.40); RED CELL DISTRIBUTION WIDTH 12.9 % (12.0-15.0); WHITE BLOOD COUNT 17.3 x10^3/uL (4.8-10.8)
[2024-01-19 06:27] LABS: CALCIUM 9.1 mg/dL (8.5-10.3); CREATININE 0.9 mg/dL (0.6-1.3); POTASSIUM 4.1 mmol/L (3.5-4.5)
[2024-01-19] MEDS ORDERED: FUROSEMIDE 20 MG TABLET PO SCH (09:00)
--- NOTE | 2024-01-19 09:02 | PROVIDER PROGRESS NOTE ---
Subjective Prog Note Date Prog Note Date: 01/19/24 Prog Note Time: 08:15 Subjective Pt reports feeling: No change Subjective: Resting. Awakens easily. She has no complaints this AM. She does not want to work with therapies. She would like to go to a place where she can receive care and be comfortable. yesterday when I asked her if she takes her meds at home, she was somewhat evasive, and said that she takes them when she can. She lives in the basement, does not like to come upstairs, and therefore does not eat regular meals, etc. Current Medications Current Medications Current Medications: Current Medications Generic Name Dose Route Start Last Admin Trade Name Freq PRN Reason Stop Dose Admin Acetaminophen 650 mg 01/18/24 12:07 Acetaminophen 325 Mg Tablet PO Q4HR PRN Pain 1 to 4, or Fever Hydrocodone Bitart/Acetaminophen 1 tab 01/18/24 12:07 Hydrocod/Acetam 10 Mg/325 Mg Tablet PO Q4HR PRN Pain 8 to 10 Albuterol/Ipratropium 3 ml 01/18/24 12:07 Ipratropium/Albuterol 3 Ml Neb INH Q4HR PRN Wheezing Aspirin 81 mg 01/19/24 09:00 Aspirin Ec 81 Mg Tablet PO DAILY HENOK Atorvastatin Calcium 10 mg 01/18/24 21:00 01/18/24 21:04 Atorvastatin 10 Mg Tablet PO 10 mg QPM HENOK Administration Diltiazem HCl 30 mg 01/18/24 18:00 01/19/24 06:54 Diltiazem 30 Mg Tablet PO 30 mg Q6HR HENOK Administration Furosemide 20 mg 01/19/24 09:00 Furosemide 20 Mg Tablet PO DAILY HENOK Heparin Sodium (Porcine) 5,000 unit 01/18/24 21:00 01/18/24 21:04 Heparin 5,000 Unit/Ml Vial SUBQ 5,000 unit BID HENOK Administration Metoprolol Tartrate 25 mg 01/18/24 12:07 01/18/24 21:03 Metoprolol Tartrate 25 Mg Tablet PO 25 mg BID HENOK Administration Metoprolol Tartrate 5 mg 01/18/24 15:24 Metoprolol 5 Mg/5 Ml Vial IVP Q6H PRN elevated heart rate Mirtazapine 30 mg 01/18/24 21:00 01/18/24 21:03 Mirtazapine 15 Mg Tablet PO 30 mg QPM HENOK Administration Montelukast Sodium 10 mg 01/18/24 21:00 01/18/24 21:03 Montelukast 10 Mg Tablet PO 10 mg QPM [facility] Administration Multivitamins/Minerals 1 tab 01/19/24 08:00 Multivitamin W/Minerals Tablet PO DAILYWM [facility] Ondansetron HCl 4 mg 01/18/24 12:07 Ondansetron Odt 4 Mg Tablet TL Q6HR PRN Nausea / Vomiting Potassium Chloride 10 meq 01/19/24 08:00 Potassium Chloride 10 Meq Capsule PO DAILYWM [facility] Prednisone 40 mg 01/18/24 12:00 01/18/24 14:08 Prednisone 20 Mg Tablet PO 40 mg DAILY [facility] Administration Sodium Chloride 10 ml 01/18/24 12:07 Sodium Chloride Flush 0.9% 10 Ml Syringe IVP PRN PRN NEEDED PER PROVIDER ORDERS Sodium Chloride 10 ml 01/18/24 17:00 01/18/24 23:59 Sodium Chloride Flush 0.9% 10 Ml Syringe IVP 10 ml 0100,0900,1700 [facility] Administration Tamsulosin HCl 0.4 mg 01/19/24 09:00 Tamsulosin 0.4 Mg Capsule PO DAILY [facility] Objective Vital Signs/Intake & Output Reviewed Vital Signs: Yes Vital Signs: Vital Signs x48h Temp Pulse Pulse Resp BP BP Pulse Ox 01/19/24 06:54 68 128/72 01/19/24 06:45 18 97 01/19/24 06:00 36.8 C 68 24 128/72 92 01/19/24 02:24 37.1 C 75 20 112/66 92 01/19/24 02:05 36.6 C 64 18 117/60 99 O2 Flow Rate 01/19/24 06:54 01/19/24 06:45 2 01/19/24 06:00 2 01/19/24 02:24 2 01/19/24 02:05 2 Intake & Output: Intake & Output 01/17/24 01/18/24 01/19/24 01/20/24 05:59 05:59 05:59 04:59 Intake Total 50 / 50 250 / 250 0 / 0 Output Total 580 / 580 0 / 0 Balance 50 / 50 -330 / -330 0 / 0 Weight (kg) 47 kg 45 kg Objective General Appearance: positive No acute distress and Alert Eyes Bilateral: positive Normal inspection Neck: positive Nml inspection Respiratory: positive Chest non-tender, No respiratory distress and Breath sounds nml Cardiovascular: positive Irregularly irregular (has had some episodes of pause/bradycardia since diltiazem started. ) Abdomen: positive Non-tender and No distention Back: positive Nml inspection Skin: positive Color nml Extremities: positive No pedal edema Neurologic/Psychiatric: positive Oriented x3 Lab Results 01/19/24 05:23 01/19/24 05:23 Other Labs: Lab Results x24hrs 01/19/24 01/19/24 01/18/24 Range/Units 05:46 05:23 13:09 WBC 17.3 H 19.0 H (4.8-10.8) x10^3/uL RBC 4.31 4.51 (4.20-5.40) 10^6/uL Hgb 12.4 13.0 (12.0-16.0) g/dL Hct 41.3 43.1 (37.0-47.0) % MCV 95.8 95.6 (81.0-99.0) fL MCH 28.8 28.8 (27.0-31.0) pg MCHC 30.0 L 30.2 L (32.0-36.0) g/dL RDW 12.9 13.1 (12.0-15.0) % Plt Count 392 384 (130-450) 10^3/uL MPV 9.7 9.7 (7.9-10.8) fL Neut # (Auto) 15.8 H 17.8 H (1.5-6.6) 10^3/uL Lymph # (Auto) 1.1 L 0.8 L (1.5-3.5) 10^3/uL [place] # (Auto) 0.4 0.3 (0.0-1.0) 10^3/uL Eos # (Auto) 0.0 0.0 (0.0-0.7) 10^3/uL Baso # (Auto) 0.0 0.0 (0.0-0.1) 10^3/uL Absolute Nucleated RBC 0.00 0.00 x10^3/uL Nucleated RBC % 0.0 0.0 /100WBC Sodium 139 141 (135-145) mmol/L Potassium 4.1 4.0 (3.5-4.5) mmol/L Chloride 95 L 93 L (101-111) mmol/L Carbon Dioxide 41 H* 40 H* (21-32) mmol/L Anion Gap 3.0 L 8.0 (6-13) BUN 29 H 30 H (6-20) mg/dL Creatinine 0.9 0.9 (0.6-1.3) mg/dL Estimated GFR (MDRD) 60 L 60 L (>89) Glucose 112 H 166 H (74-104) mg/dL Calcium 9.1 9.6 (8.5-10.3) mg/dL Magnesium 2.3 (1.7-2.3) mg/dL Troponin I High Sens 19.5 H* (2.3-14.8) ng/L Assessment/Plan Problem List (1) COPD with acute exacerbation: Impression: Chronic hypercarbic respiratory failure with superimposed acute hypoxemic respiratory failure as evidenced by increased oxygen requirements. She has improved somewhat with administration of steroids and bronchodilators. At home she is on 2 to 4 L of oxygen via nasal cannula. At this time she is on 2 L via nasal cannula with an oxygen saturation in the mid 90's. . Imaging while in the emergency department is a chest x-ray which shows no acute cardiopulmonary process. As I reviewed the chest x-ray image and I see hyperinflation of the lungs. I do not appreciate any infiltrates. I have ordered prednisone 40 mg a day. She will get this for a total of 5 days in the emergency department over the course of 24 hours, she got 250 mg of Solu- Medrol. She got IV magnesium. She has gotten multiple nebulizers. I have ordered albuterol ipratropium nebulizer treatments every 4 hours. I will supplement her with oxygen as needed. Her laboratory findings indicate a white count of 15.0. Her white blood cell count has not improved over time. I will therefore add azithromycin to her regimen to try to reduce inflammation. We will treat her with 500 mg x 3 days. Laboratory Tests 01/17/24 01/18/24 01/19/24 15:55 13:09 05:23 WBC 15.0 H 19.0 H 17.3 H It sounds as if over the last year to year and a half her functional status has significantly declined. She spends most of her time in bed. She has difficulty getting up and moving both due to her dyspnea on exertion and her chronic musculoskeletal pain. (2) Atrial fibrillation with RVR: Impression: Most recent echocardiogram was 12/13/2023. It shows normal left ventricular size and systolic function with an left ventricular ejection fraction of 55 to to 60%. It shows normal right ventricular size and systolic function. It shows mild tricuspid regurgitation Her EKG has not been repeated this admission. I have repeated that. Atrial fib with a rate of 103 is seen on EKG, consistent with monitor. . Her troponins in the past have been negative. Her troponins have not been repeated this admission. I have repeated troponin. troponin is 19.5. I will not repeat unless she develops signs of worsening cardiac function. (3) Bradycardia, unspecified: Impression: This is a new development since starting diltiazem. I am somewhat suspicious that she was not taking her metoprolol at home and therefore was not rate controlled. We have put her in the hospital given her home metoprolol and on top of that given her diltiazem which is probably causing these pauses. I have discontinued her diltiazem we will continue to monitor her on telemetry. She is not medically stable for discharge. I repeated EKG today, there is no heart block. I will continue telemetry overnight. (4) Adult failure to thrive: Impression: BMI is 16. has not increased over the last year to 18 months as her health has declined and her COPD has worsened. She is not thriving in her current environment. reviewed home health notes that are scanned into chart. it appears that she did not respond to contact from HH agency. She is not taking in adequate nutrition. 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 Palliative care note 09/05/22 reviewed. At that time, patient did not want to go to SNF, but that has changed. She wants to live in a facility (5) Chronic back pain: Impression: This afternoon , her back pain is worse. She has received hydrocodone-- if this is ineffective we will escalate to oxycodone. (6) DNI (do not intubate): Impression: DNR/DNI. there is a POLST on file. (7) Severe protein-calorie malnutrition: Impression: see above "failure to thrive" (8) Ambulatory dysfunction: Impression: Patient does not have aspirations towards rehab. She does not want to get out of bed. Social work has been consulted. It is unclear at this time what her options are. I have spent 38 minutes in the care of this patient today. This includes time [id number], review and ordering of diagnostic imaging and laboratory studies.. Monitoring the patient's signs symptoms, evaluation of medication effectiveness and patient's response to treatment.
[2024-01-19] MEDS: MULTIVITAMIN W/MINERALS TABLET PO SCH (09:14)
[2024-01-19] MEDS: POTASSIUM CHLORIDE 10 MEQ CAPSULE PO SCH (09:14)
[2024-01-19] MEDS: FUROSEMIDE 20 MG TABLET PO SCH (09:16)
[2024-01-19] MEDS: TAMSULOSIN 0.4 MG CAPSULE PO SCH (09:18)
[2024-01-19] MEDS: ASPIRIN EC 81 MG TABLET PO SCH (09:18)
[2024-01-19] MEDS ORDERED: ALBUTEROL NEB 2.5 MG/3 ML INH PRN (10:42)
[2024-01-19] MEDS: ACETAMINOPHEN 325 MG TABLET PO PRN (11:55)
[2024-01-19] MEDS: HYDROcod/ACETAM 10 MG/325 MG TABLET PO PRN (14:49)
[2024-01-19] MEDS: AZITHROMYCIN INJ 500 MG in SODIUM CHLORIDE 0.9% 250 ML IV SCH (14:54)
[2024-01-20 06:26] LABS: BASOPHILS % (AUTO) 0.1 %; EOSINOPHILS % (AUTO) 0.1 %; HCT - HEMATOCRIT 41.3 % (37.0-47.0); HGB - HEMOGLOBIN 12.4 g/dL (12.0-16.0); LYMPHOCYTES % (AUTO) 13.1 %; MEAN CORPUSCULAR VOLUME 96.7 fL (81.0-99.0); MEAN PLATELET VOLUME 9.6 fL (7.9-10.8); MONOCYTES # (AUTO) 0.7 10^3/uL (0.0-1.0); MONOCYTES % (AUTO) 4.6 %; NEUTROPHILS # (AUTO) 12.7 10^3/uL (1.5-6.6); NEUTROPHILS % (AUTO) 81.5 %; PLT - PLATELET COUNT 372 10^3/uL (130-450); RED BLOOD COUNT 4.27 10^6/uL (4.20-5.40); RED CELL DISTRIBUTION WIDTH 12.8 % (12.0-15.0); WHITE BLOOD COUNT 15.5 x10^3/uL (4.8-10.8)
[2024-01-20 06:44] LABS: CALCIUM 9.1 mg/dL (8.5-10.3); CREATININE 0.9 mg/dL (0.6-1.3); POTASSIUM 4.2 mmol/L (3.5-4.5)
[2024-01-20] MEDS: AZITHROMYCIN 250 MG TABLET PO SCH (14:39)
--- NOTE | 2024-01-20 15:54 | PROVIDER PROGRESS NOTE ---
Subjective Prog Note Date Prog Note Date: 01/20/24 Prog Note Time: 15:53 Subjective Pt reports feeling: No change Subjective: Tiffany has been sleeping much of the day. This afternoon when I come in she awakens easily. She absolutely does not want to discharge to home. She states that her back is always hurting at home and she is not getting the help she needs. She states that she is in the basement most of the time and she is not welcome upstairs in her home. She states she forgets to take her medications at home. She has previously been established with home health but states that home health stopped coming to see her. She feels very clear that she cannot go home and she will not go home. She wants to go to an assisted living facility I explained to her that the situation we are in is 1 that will not satisfy everyone's desires. She wants to go to some sort of a supported living situation. She has family members who are supportive of this according to social work. Unfortunately the things that need to be done cannot be done in the timeframe to get her from here to an assisted living facility. This is her second admission in this situation. Her DURABLE POWER OF CLERICAL ASSIGNER is her son Gabe who she sees several times a year. She lives with a daughter Renate. She has been seen here by physical therapy. She has refused to work with physical therapy. She does not want a snf facility for rehab. She wants somewhere that she can go and be given meals and medications Current Medications Current Medications Current Medications: Current Medications Generic Name Dose Route Start Last Admin Trade Name Sugey PRN Reason Stop Dose Admin Acetaminophen 650 mg 01/18/24 12:07 01/20/24 09:02 Acetaminophen 325 Mg Tablet PO 650 mg Q4HR PRN Administration Pain 1 to 4, or Fever Hydrocodone Bitart/Acetaminophen 1 tab 01/18/24 12:07 01/19/24 14:49 Hydrocod/Acetam 10 Mg/325 Mg Tablet PO 1 tab Q4HR PRN Administration Pain 8 to 10 Albuterol 2.5 mg 01/19/24 10:42 Albuterol Neb 2.5 Mg/3 Ml INH Q6H PRN shortness of breath or wheezing Albuterol/Ipratropium 3 ml 01/18/24 12:07 Ipratropium/Albuterol 3 Ml Neb INH Q4HR PRN Wheezing Aspirin 81 mg 01/19/24 09:00 01/20/24 08:18 Aspirin Ec 81 Mg Tablet PO 81 mg DAILY HENOK Administration Atorvastatin Calcium 10 mg 01/18/24 21:00 01/19/24 21:20 Atorvastatin 10 Mg Tablet PO 10 mg QPM HENOK Administration Azithromycin 500 mg 01/20/24 15:00 01/20/24 14:39 Azithromycin 250 Mg Tablet PO 01/21/24 15:01 500 mg 1500 HENOK Administration Furosemide 20 mg 01/19/24 09:00 01/20/24 08:18 Furosemide 20 Mg Tablet PO 20 mg DAILY HENOK Administration Heparin Sodium (Porcine) 5,000 unit 01/18/24 21:00 01/20/24 08:21 Heparin 5,000 Unit/Ml Vial SUBQ 5,000 unit BID HENOK Administration Metoprolol Tartrate 25 mg 01/18/24 12:07 01/20/24 08:18 Metoprolol Tartrate 25 Mg Tablet PO 25 mg BID HENOK Administration Metoprolol Tartrate 5 mg 01/18/24 15:24 Metoprolol 5 Mg/5 Ml Vial IVP Q6H PRN elevated heart rate Mirtazapine 30 mg 01/18/24 21:00 01/19/24 21:19 Mirtazapine 15 Mg Tablet PO 30 mg QPM HENOK Administration Montelukast Sodium 10 mg 01/18/24 21:00 01/19/24 21:20 Montelukast 10 Mg Tablet PO 10 mg QPM HENOK Administration Multivitamins/Minerals 1 tab 01/19/24 08:00 01/20/24 08:18 Multivitamin W/Minerals Tablet PO 1 tab DAILYWM HENOK Administration Ondansetron HCl 4 mg 01/18/24 12:07 Ondansetron Odt 4 Mg Tablet TL Q6HR PRN Nausea / Vomiting Potassium Chloride 10 meq 01/19/24 08:00 01/20/24 08:18 Potassium Chloride 10 Meq Capsule PO 10 meq DAILYWM HENOK Administration Prednisone 40 mg 01/18/24 12:00 01/20/24 08:19 Prednisone 20 Mg Tablet PO 01/22/24 09:01 40 mg DAILY HENOK Administration Sodium Chloride 10 ml 01/18/24 12:07 Sodium Chloride Flush 0.9% 10 Ml Syringe IVP PRN PRN NEEDED PER PROVIDER ORDERS Sodium Chloride 10 ml 01/18/24 17:00 01/20/24 09:13 Sodium Chloride Flush 0.9% 10 Ml Syringe IVP 10 ml 0100,0900,1700 HENOK Administration Tamsulosin HCl 0.4 mg 01/19/24 09:00 01/20/24 08:18 Tamsulosin 0.4 Mg Capsule PO 0.4 mg DAILY HENOK Administration Objective Vital Signs/Intake & Output Reviewed Vital Signs: Yes Vital Signs: Vital Signs x48h Temp Pulse Pulse Resp BP BP Pulse Ox 01/20/24 09:01 37.1 C 92 H 21 145/82 H 95 01/20/24 08:18 85 129/76 O2 Flow Rate 01/20/24 09:01 2 01/20/24 08:18 Intake & Output: Intake & Output 01/18/24 01/19/24 01/20/24 01/21/24 05:59 05:59 04:59 05:59 Intake Total 50 / 50 250 / 250 1280 / 1280 260 / 260 Output Total 580 / 580 880 / 880 425 / 425 Balance 50 / 50 -330 / -330 400 / 400 -165 / -165 Weight (kg) 47 kg 45 kg Objective General Appearance: positive No acute distress and Alert Eyes Bilateral: positive Normal inspection Neck: positive Nml inspection Respiratory: positive Chest non-tender, No respiratory distress and Breath sounds nml Cardiovascular: positive Irregularly irregular ( ) Abdomen: positive Non-tender and No distention Back: positive Nml inspection Skin: positive Color nml Extremities: positive No pedal edema Neurologic/Psychiatric: positive Oriented x3 Lab Results 01/20/24 05:59 01/20/24 05:59 Other Labs: Lab Results x24hrs 01/20/24 Range/Units 05:59 WBC 15.5 H (4.8-10.8) x10^3/uL RBC 4.27 (4.20-5.40) 10^6/uL Hgb 12.4 (12.0-16.0) g/dL Hct 41.3 (37.0-47.0) % MCV 96.7 (81.0-99.0) fL MCH 29.0 (27.0-31.0) pg MCHC 30.0 L (32.0-36.0) g/dL RDW 12.8 (12.0-15.0) % Plt Count 372 (130-450) 10^3/uL MPV 9.6 (7.9-10.8) fL Neut # (Auto) 12.7 H (1.5-6.6) 10^3/uL Lymph # (Auto) 2.0 (1.5-3.5) 10^3/uL [place] # (Auto) 0.7 (0.0-1.0) 10^3/uL Eos # (Auto) 0.0 (0.0-0.7) 10^3/uL Baso # (Auto) 0.0 (0.0-0.1) 10^3/uL Absolute Nucleated RBC 0.00 x10^3/uL Nucleated RBC % 0.0 /100WBC Sodium 140 (135-145) mmol/L Potassium 4.2 (3.5-4.5) mmol/L Chloride 97 L (101-111) mmol/L Carbon Dioxide 41 H* (21-32) mmol/L Anion Gap 2.0 L (6-13) BUN 34 H (6-20) mg/dL Creatinine 0.9 (0.6-1.3) mg/dL Estimated GFR (MDRD) 60 L (>89) Glucose 92 (74-104) mg/dL Calcium 9.1 (8.5-10.3) mg/dL Assessment/Plan Problem List (1) COPD with acute exacerbation: Impression: Chronic hypercarbic respiratory failure with superimposed acute hypoxemic respiratory failure as evidenced by increased oxygen requirements. She has improved somewhat with administration of steroids and bronchodilators. At home she is on 2 to 4 L of oxygen via nasal cannula. At this time she is on 2 L via nasal cannula with an oxygen saturation in the mid 90's. . Imaging while in the emergency department is a chest x-ray which shows no acute cardiopulmonary process. As I reviewed the chest x-ray image and I see hyperinflation of the lungs. I do not appreciate any infiltrates. I have ordered prednisone 40 mg a day. She will get this for a total of 5 days. She is day 3/. in the emergency department over the course of 24 hours, she got 250 mg of Solu- Medrol. She got IV magnesium. She has gotten multiple nebulizers. I have ordered albuterol ipratropium nebulizer treatments every 4 hours. I started azithromycin in an effort to improve her white blood cell count and this has been effective We will treat her with 500 mg x 3 days. She is day 2/3 Laboratory Tests 01/17/24 01/18/24 01/19/24 15:55 13:09 05:23 WBC 15.0 H 19.0 H 17.3 H 01/20/24 05:59 WBC 15.5 H It sounds as if over the last year to year and a half her functional status has significantly declined. She spends most of her time in bed. She has difficulty getting up and moving both due to her dyspnea on exertion and her chronic musculoskeletal pain. Please see my discussion of her ambulatory dysfunction below. (2) Atrial fibrillation with RVR: Impression: Most recent echocardiogram was 12/13/2023. It shows normal left ventricular size and systolic function with an left ventricular ejection fraction of 55 to to 60%. It shows normal right ventricular size and systolic function. It shows mild tricuspid regurgitation EKG this admission shows Atrial fib with a rate of 103 is seen on EKG, consistent with monitor. . . troponin is 19.5. I will not repeat unless she develops signs of worsening cardiac function. (3) Bradycardia, unspecified: Impression: This is a new development since starting diltiazem. I am somewhat suspicious that she was not taking her metoprolol at home and therefore was not rate controlled. We have put her in the hospital given her home metoprolol and on top of that given her diltiazem which is probably causing these pauses. I have discontinued her diltiazem we will continue to monitor her on telemetry. telemetry did not show any additional pauses after the diltiazem was discontinued (4) Adult failure to thrive: Impression: BMI is 16. has not increased over the last year to 18 months as her health has declined and her COPD has worsened. She is not thriving in her current environment, but in my discussion with her home caregivers, it would seem that she is getting what she wants to eat when she wants to eat. reviewed home health notes that are scanned into chart. it appears that she did not respond to contact from HH agency. Although she has access to nutrition, she is not taking in adequate nutrition. 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 Palliative care note 09/05/22 reviewed. At that time, patient did not want to go to SNF, but that has changed. She wants to live in a facility. I would recommend outpatient palliative care consultation. (5) Chronic back pain: Impression: Chronic. [place] and APAP have been effective. Overall approach to care is palliative, and I think it is appropriate for her to have narcotics for her back pain. (6) DNI (do not intubate): Impression: DNR/DNI. there is a POLST on file. (7) Severe protein-calorie malnutrition: Impression: see above "failure to thrive" (8) Ambulatory dysfunction: Impression: She states that she is in the basement most of the time and she is not welcome upstairs in her home. She states she forgets to take her medications at home. She has previously been established with home health but states that home health stopped coming to see her. She feels very clear that she cannot go home and she will not go home. She wants to go to an assisted living facility I explained to her that the situation we are in is 1 that will not satisfy everyone's desires. She wants to go to some sort of a supported living situation. She has family members who are supportive of this according to social work. Unfortunately the things that need to be done cannot be done in the timeframe to get her from here to an assisted living facility. This is her second admission in this situation. She has been seen here by physical therapy. She has refused to work with physical therapy. She does not want a snf facility for rehab. She wants somewhere that she can go and be given meals and medication I called her child Renate. I had a 25-minute telephone conversation with Renate this afternoon. Renate is distraught over this situation. She says that what Tiffany's family has offered to her is not good enough for Tiffany. She is given what she wants to eat. she does not always want to eat at mealtimes but she has snacks when she wants them. she gets to the bathroom but overall refuses to help herself and does not want to be left alone at home. She has a stair chair that allows her to come up stairs and she has two oxygen concentrators in the home so that she has oxygen for everywhere that she wants or needs to be within her home. Renate states that Tiffany feels entitled and wants to be waited on "[id number]". Renate states that they do give Tiffany everything that they possibly can, including anything she may need or want in the middle of the night. If she wants a snack in the middle of the night, she gets it, although sometimes she does have to yell to wake up family members who are heavily sleeping. For a time she was using only a bedside commode but is doing better getting to the bathroom now that she has a toilet riser. She has a niece who works full-time and has friends outside the home but is also available to help. Tiffany's medication boxes are filled on a weekly basis but Renate notes that she does sometimes find pills scattered about outside the medication box and that Tiffany does not always take her medications. The family is attempting to meet Tiffany's needs but seems to be unable to meet her expectations. Tiffany would like the level of care at home that she gets in the hospital. It is highly unlikely that she would get this level of care in a facility but that is not the patient's perception. I explained to Renate as I have explained to Tiffany that it is unlikely we will be able to meet Tiffany's expectations for discharge. There are are possibilities for working towards this expectation of living in a facility within the community, and this will take time. It may also place a financial burden on the patient's family. I have spent 45 minutes in the care of this patient today. This includes time [id number], review and ordering of diagnostic imaging and laboratory studies.. Monitoring the patient's signs symptoms, evaluation of medication effectiveness and patient's response to treatment.
[2024-01-20] MEDS: IPRATROPIUM/ALBUTEROL 3 ML NEB INH PRN (19:34)
[2024-01-21 06:11] LABS: CALCIUM 9.1 mg/dL (8.5-10.3); CREATININE 0.8 mg/dL (0.6-1.3); POTASSIUM 3.9 mmol/L (3.5-4.5)
[2024-01-21 06:38] LABS: BASOPHILS % (AUTO) 0.1 %; EOSINOPHILS # (AUTO) 0.1 10^3/uL (0.0-0.7); EOSINOPHILS % (AUTO) 0.6 %; HCT - HEMATOCRIT 41.4 % (37.0-47.0); HGB - HEMOGLOBIN 12.5 g/dL (12.0-16.0); LYMPHOCYTES # (AUTO) 2.4 10^3/uL (1.5-3.5); LYMPHOCYTES % (AUTO) 16.7 %; MEAN CORPUSCULAR HEMOGLOBIN 29.2 pg (27.0-31.0); MEAN CORPUSCULAR HGB CONC 30.2 g/dL (32.0-36.0); MEAN CORPUSCULAR VOLUME 96.7 fL (81.0-99.0); MEAN PLATELET VOLUME 9.5 fL (7.9-10.8); MONOCYTES # (AUTO) 1.1 10^3/uL (0.0-1.0); MONOCYTES % (AUTO) 7.5 %; NEUTROPHILS # (AUTO) 10.5 10^3/uL (1.5-6.6); NEUTROPHILS % (AUTO) 74.3 %; PLT - PLATELET COUNT 378 10^3/uL (130-450); RED BLOOD COUNT 4.28 10^6/uL (4.20-5.40); RED CELL DISTRIBUTION WIDTH 12.7 % (12.0-15.0); WHITE BLOOD COUNT 14.1 x10^3/uL (4.8-10.8)
--- NOTE | 2024-01-21 10:42 | Discharge Summary ---
Discharge Summary Admit Date: 01/18/24 Discharge Date: 01/23/24 Discharging Provider: Abi Blanca PA-C Primary Care Provider: Gina Pete PA-C Code Status: Do Not Attempt Resuscitation DIAGNOSES Admission Diagnoses: COPD Exacerbation A fib with RVR failure to thrive Chronic back pain DNR Ambulatory dysfunction Discharge Diagnoses with Status of Each Condition: (1) COPD with acute exacerbation: Impression: Chronic hypercarbic respiratory failure with superimposed acute hypoxemic respiratory failure as evidenced by increased oxygen requirements. She has improved with administration of steroids and bronchodilators. At home she is on 2 to 4 L of oxygen via nasal cannula. At this time she is on 2 L via nasal cannula with an oxygen saturation in the mid 90's. Imaging while in the emergency department is a chest x-ray which shows no acute cardiopulmonary process. As I reviewed the chest x-ray image and I see hyperinflation of the lungs. I do not appreciate any infiltrates. She received 5 days of prednisone 40mg daily. in the emergency department over the course of 24 hours, she got 250 mg of Solu- Medrol. She got IV magnesium. I started azithromycin in an effort to improve her white blood cell count and this has been effective She completed 3 days of 500mg daily Laboratory Tests 01/18/24 01/19/24 01/20/24 13:09 05:23 05:59 WBC 19.0 H 17.3 H 15.5 H 01/21/24 05:52 WBC 14.1 H It sounds as if over the last year to year and a half her functional status has significantly declined. She spends most of her time in bed. She has difficulty getting up and moving both due to her dyspnea on exertion and her chronic musculoskeletal pain. Please see my discussion of her ambulatory dysfunction below. (2) Atrial fibrillation with RVR: Impression: Most recent echocardiogram was 12/13/2023. It shows normal left ventricular size and systolic function with an left ventricular ejection fraction of 55 to to 60%. It shows normal right ventricular size and systolic function. It shows mild tricuspid regurgitation EKG this admission shows Atrial fib with a rate of 103 is seen on EKG, consistent with monitor. . (3) Bradycardia, unspecified: Impression: This is a new development since starting diltiazem. I am somewhat suspicious that she was not taking her metoprolol at home and therefore was not rate controlled. I have discontinued her diltiazem we will continue to monitor her on telemetry. telemetry did not show any additional pauses after the diltiazem was discontinued. She has occasional bradycardia at rest. (4) Adult failure to thrive: Impression: BMI is 16. has not increased over the last year to 18 months as her health has declined and her COPD has worsened. She is not thriving in her current environment, but in my discussion with her home caregivers, it would seem that she is getting what she wants to eat when she wants to eat. reviewed home health notes that are scanned into chart. it appears that she did not respond to contact from HH agency. Although she has access to nutrition, she is not taking in adequate nutrition. 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 Palliative care note 09/05/22 reviewed. At that time, patient did not want to go to SNF, but that has changed. She wants to live in a facility. I would recommend outpatient palliative care consultation. (5) Chronic back pain: Impression: Chronic. [place] and AP[facility] have been effective. Overall approach to care is palliative, and I think it is appropriate for her to have narcotics for her back pain. (6) DNI (do not intubate): Impression: DNR/DNI. there is a POLST on file. (7) Severe protein-calorie malnutrition: Impression: see above "failure to thrive" (8) Ambulatory dysfunction: Impression: She states that she is in the basement most of the time and she is not welcome upstairs in her home. She states she forgets to take her medications at home. She has previously been established with home health but states that home health stopped coming to see her. She feels very clear that she cannot go home and she will not go home. She wants to go to an assisted living facility I explained to her that the situation we are in is 1 that will not satisfy everyone's desires. She wants to go to some sort of a supported living situation. She has family members who are supportive of this according to social work. Unfortunately the things that need to be done cannot be done in the timeframe to get her from here to an assisted living facility. This is her second admission in this situation. She has been seen here by physical therapy. She has refused to work with physical therapy. She does not want a custodial facility for rehab. She wants somewhere that she can go and be given meals and medication I called her child Renate. Renate is distraught over this situation. She says that what Tiffany's family has offered to her is not good enough for Tiffany. She is given what she wants to eat. she does not always want to eat at mealtimes but she has snacks when she wants them. she gets to the bathroom but overall refuses to help herself and does not want to be left alone at home. She has a stair chair that allows her to come up stairs and she has two oxygen concentrators in the home so that she has oxygen for everywhere that she wants or needs to be within her home. Renate states that Tiffany feels entitled and wants to be waited on "[id number]". Renate states that they do give Tiffany everything that they possibly can, including anything she may need or want in the middle of the night. If she wants a snack in the middle of the night, she gets it, although sometimes she does have to yell to wake up family members who are heavily sleeping. For a time she was using only a bedside commode but is doing better getting to the bathroom now that she has a toilet riser. She has a niece who works full-time and has friends outside the home but is also available to help. Tiffany's medication boxes are filled on a weekly basis but Renate notes that she does sometimes find pills scattered about outside the medication box and that Tiffany does not always take her medications. The family is attempting to meet Tiffany's needs but seems to be unable to meet her expectations. Tiffany would like the level of care at home that she gets in the hospital. It is highly unlikely that she would get this level of care in a facility but that is not the patient's perception. There are are possibilities for working towards this expectation of living in a facility within the community, and this will take time. It may also place a financial burden on the patient's family. Tiffany did appeal dicharge with Medicare this admission, and discharge was upheld. She is medically stable. HPI History of Present Illness: History as A-fib, end-stage COPD, chronic back pain, hypertension, appendicitis treated nonoperatively presents to emergency department with dyspnea over the last course of the last several days.She has not anticoagulated for her atrial fibrillation due to fall risk. She is basically bedbound at home. Does not like to get out of bed and does so very rarely. She is on dexamethasone 2 mg daily; this is as an appetite stimulant. At her previous hospitalization she inquired about SNF placement and hospice care. She presents to our hospital stating that she will not be going home again. She does not want to go home she wants to go into a care facility.She lives with her foster daughter but does not feel she is getting the level of care that she requires at home. she was admitted to our facility from December 13 through December 17 and treated nonoperatively for a perforated appendicitis. She has overall done well with this with some chronic residual abdominal pain. She has chronic protein calorie malnutrition due to inadequate intake. This has been ongoing for greater than 1 year. With a body weight of between 46 and 47 kg. She has lots of pain in her sacrum and lower back which is much worse with any activity. She is also intolerant of activity due to her pulmonary capacity. In the emergency department she remains tachypneic with a respiratory rate in the low 20s. She is on 2 L of oxygen with a saturation of 93%. Her heart rate is hovering in the low 100s. She has been given 10 mg of Cardizem IV push twice most recently at around 10:00 this morning. She has been given albuterol as well as albuterol Atrovent nebulizer treatments, magnesium, and 2 doses of methylprednisolone 125 mg 1 yesterday afternoon and 1 about 19 hours later. Imaging while in the emergency department is a chest x-ray which shows no acute cardiopulmonary process. As I reviewed the chest x-ray image I see hyperinflation of the lungs I do not appreciate any infiltrates. In reviewing the chart it looks like she had home health consultation in mid December. This was with medical social work it appears that home health physical therapy was also ordered however they were unable to contact the patient, and the same appears to be true for home health nursing. CONSULTS | PROCEDURES Consultations: none Procedures: CXR: no acute cariopulmonary process HOSPITAL COURSE Hospital Course: Admitted w the above diagnoses and expressed the desiure to go into a facility. Has no interest in rehab, and decline to work with PT. [place] better while here in that her COPD exacerbation was treated and her back pain was treated. Was able to rest, and ate well. She was discharged to home in care of family. Both social work and hospitalist services had conversation with family. We will re try home health services. ALLERGIES Allergies Allergy/AdvReac Type Severity Reaction Status Date / Time Penicillins Allergy Intermediate Hives, Verified 01/17/24 16:14 swelling aspirin Allergy Mild Rash Verified 01/17/24 16:14 piroxicam (From Feldene) Allergy Mild Rash Verified 01/17/24 16:14 meperidine (From Demerol) Allergy Unknown Verified 01/17/24 16:14 MEDICATIONS Ambulatory Orders Medication Instructions Recorded Confirmed montelukast 10 mg tablet 10 mg PO QPM copd 09/06/22 01/17/24 furosemide 20 mg tablet 20 - 60 mg PO DAILY 11/05/23 01/17/24 metoprolol tartrate 25 mg tablet 25 mg PO BID 11/05/23 01/17/24 aspirin 81 mg tablet,delayed 81 mg PO DAILY 11/06/23 01/17/24 release mirtazapine 15 mg tablet 30 mg PO QPM appetite 11/06/23 01/17/24 stimulant/SLEEP potassium chloride 10 mEq 10 meq PO QDAY #90 tabs 12/27/23 01/17/24 tablet,extended release tamsulosin 0.4 mg capsule 0.4 mg PO DAILY urinary retention 12/27/23 01/17/24 #90 caps dexamethasone 2 mg tablet 2 mg PO DAILY 12/29/23 01/17/24 albuterol sulfate 2.5 mg/3 mL 2.5 mg inhalation Q6H PRN 01/18/24 01/18/24 (0.083 %) solution for nebulization shortness of breath or wheezing albuterol sulfate 90 mcg/actuation 2 inh inhalation Q4H PRN shortness 01/18/24 01/18/24 aerosol inhaler of breath or wheezing methocarbamol 500 mg tablet 500 mg PO BID 01/18/24 01/18/24 acetaminophen 325 mg tablet 650 mg (2 x 325 mg) PO Q4HR PRN 01/21/24 Pain 1 to 4, or Fever #30 tabs azithromycin 250 mg tablet 500 mg (2 x 250 mg) PO ONCE #1 tab 01/21/24 hydrocodone 10 mg-acetaminophen 1 tab PO Q4HR PRN Pain 8 to 10 #20 01/21/24 325 mg tablet tabs [id number] 1 tab PO DAILYWM #30 tabs 01/21/24 fumarate 19 mg-folic acid 400 mcg tablet (Therapeutic-M) prednisone 20 mg tablet 40 mg (2 x 20 mg) PO DAILY #4 tabs 01/21/24 simvastatin 20 mg tablet (Zocor) 20 mg PO QPM hyperlipidemia 90 01/28/24 days #90 tabs PHYSICAL EXAM AT DISCHARGE General Appearance: positive No acute distress Eyes Bilateral: positive Normal inspection ENT: positive ENT inspection nml Neck: positive Nml inspection Respiratory: positive Chest non-tender, No respiratory distress and Rhonchi (occasional) Cardiovascular: positive Regular rate & rhythm Abdomen: positive Non-tender and No distention Back: positive Nml inspection Skin: positive Color nml Extremities: positive Non-tender and No pedal edema Neurologic/Psychiatric: positive Oriented x3 LABS 01/21/24 05:52 01/21/24 05:52 FOLLOW UP Follow Up: PCP NGUYEN Pete TIME SPENT Time Spent in Discharge (Minutes): 45 Discharge Plan Discharge Patient Disposition: 06 Home Health Service Condition: Fair Prescriptions: New acetaminophen 325 mg Tablet 650 mg PO Q4HR PRN (Reason: Pain 1 to 4, or Fever) Qty: 30 0RF azithromycin 250 mg Tablet 500 mg PO ONCE Qty: 1 0RF hydrocodone-acetaminophen 10-325 mg Tablet 1 tab PO Q4HR PRN (Reason: Pain 8 to 10) Qty: 20 0RF Therapeutic-M 19 mg iron- 400 mcg Tablet 1 tab PO DAILYWM Qty: 30 0RF prednisone 20 mg tablet 40 mg PO DAILY Qty: 4 0RF Continued montelukast 10 MG tablet 10 mg PO QPM 0RF furosemide 20 MG tablet 20 - 60 mg PO DAILY Rx Instructions: for swelling as directed metoprolol tartrate 25 MG tablet 25 mg PO BID aspirin 81 MG tablet,delayed release (DR/EC) 81 mg PO DAILY mirtazapine 15 MG tablet 30 mg PO QPM dexamethasone 2 mg tablet 2 mg PO DAILY Patient Comments: take 1 tablet by mouth once daily for APPETITE albuterol sulfate 2.5 mg /3 mL (0.083 %) solution for nebulization 2.5 mg inhalation Q6H PRN (Reason: shortness of breath or wheezing) Rx Instructions: use in neb 2-4 times daily albuterol sulfate 90 mcg/actuation HFA aerosol inhaler 2 inh INHALATION Q4H PRN (Reason: shortness of breath or wheezing) Rx Instructions: 2 puff using inhaler every four hours as needed methocarbamol 500 mg tablet 500 mg PO BID potassium chloride 10 mEq tablet extended release 10 meq PO QDAY Qty: 90 3RF tamsulosin 0.4 mg capsule 0.4 mg PO DAILY Qty: 90 3RF Patient Comments: take 1 capsule by mouth once daily at bedtime No Action simvastatin [Zocor] 20 mg tablet 20 mg PO QPM 90 Days Qty: 90 3RF Patient Comments: TAKE 1 TABLET EVERY NIGHT AT BEDTIME Activity Restrictions: Activity as Tolerated Diet: Regular Health Concerns: You came into the hospital with increased oxygen requirements. Your lungs got back to their baseline level of function with treatment. You received treatment with steroids, breathing medications and a 3-day course of antibiotics. Your chest x-ray looked okay when you came into the hospital, there was no pneumonia. Additionally your heart rate was very high when you came into the hospital. I resumed her home metoprolol medication and your heart rate was well-controlled from that point. I believe that you had been having trouble taking your medications at home and that is why your heart rate was out of control when you came to us At home you have lost a lot of weight and you have not been doing well. This is a difficult situation because your family wants you at home and they are willing to help you as much as they can. We understand that you do not want to go home but there are not resources currently for you to go into a facility. We have ordered home health social work. Social workers in the community can help you to liquidate assets so that you have money to go into a care facility. If you truly want to go into some sort of a care facility this is your best option. I had a long discussion with your family on the phone. They are willing to help take care of you at home. They are also willing to help you get into a home if that is what you want. We cannot get you into a facility directly from the hospital. Assessment: COPD exacerbation which has improved with treatment Atrial fibrillation with rapid ventricular response which has improved with resumption of home medications Chronic protein calorie malnutrition Ambulatory dysfunction Plan of Treatment: Keep taking your prescribed medications I have prescribed you pain medication for your back pain. You can also take Tylenol. Follow-up with your primary care provider within 10 days Work with social workers to get your situation straightened out so that you can go into a facility if that is what you want Print Language: Kyr[place]z Patient Instructions: COPD, Chronic Pain, ED Failure To Thrive Follow-up Care: Gina Pete PA-C [Primary Care Provider] -
--- NOTE | 2024-01-21 11:43 | PROVIDER PROGRESS NOTE ---
Subjective Prog Note Date Prog Note Date: 01/21/24 Prog Note Time: 11:43 Subjective Pt reports feeling: No change Subjective: She absolutely does not want to discharge to home.She has been very clear about this since her at the time of her admission. She states that her back is always hurting at home and she is not getting the help she needs. She states that she is in the basement most of the time and she is not welcome upstairs in her home. She states she forgets to take her medications at home. She has previously been established with home health but states that home health stopped coming to see her. She feels very clear that she cannot go home and she will not go home. She wants to go to an assisted living facility I explained to her that the situation we are in is 1 that will not satisfy everyone's desires. She wants to go to some sort of a supported living situation. She has family members who are supportive of this according to social work. Unfortunately the things that need to be done cannot be done in the timeframe to get her from here to an assisted living facility. This is her second admission in this situation. Her [employer] is her son Gabe who she sees several times a year. She lives with a daughter Renate. She has been seen here by physical therapy. She has refused to work with physical therapy. She does not want a long-term facility for rehab. She wants somewhere that she can go and be given meals and medications Current Medications Current Medications Current Medications: Current Medications Generic Name Dose Route Start Last Admin Trade Name Sugey PRN Reason Stop Dose Admin Acetaminophen 650 mg 01/18/24 12:07 01/20/24 16:02 Acetaminophen 325 Mg Tablet PO 650 mg Q4HR PRN Administration Pain 1 to 4, or Fever Hydrocodone Bitart/Acetaminophen 1 tab 01/18/24 12:07 01/19/24 14:49 Hydrocod/Acetam 10 Mg/325 Mg Tablet PO 1 tab Q4HR PRN Administration Pain 8 to 10 Albuterol 2.5 mg 01/19/24 10:42 Albuterol Neb 2.5 Mg/3 Ml INH Q6H PRN shortness of breath or wheezing Albuterol/Ipratropium 3 ml 01/18/24 12:07 01/20/24 19:34 Ipratropium/Albuterol 3 Ml Neb INH 3 ml Q4HR PRN Administration Wheezing Aspirin 81 mg 01/19/24 09:00 01/21/24 09:19 Aspirin Ec 81 Mg Tablet PO 81 mg DAILY HENOK Administration Atorvastatin Calcium 10 mg 01/18/24 21:00 01/20/24 21:28 Atorvastatin 10 Mg Tablet PO 10 mg QPM HENOK Administration Azithromycin 500 mg 01/20/24 15:00 01/20/24 14:39 Azithromycin 250 Mg Tablet PO 01/21/24 15:01 500 mg 1500 HENOK Administration Furosemide 20 mg 01/19/24 09:00 01/21/24 09:19 Furosemide 20 Mg Tablet PO 20 mg DAILY HENOK Administration Heparin Sodium (Porcine) 5,000 unit 01/18/24 21:00 01/21/24 09:17 Heparin 5,000 Unit/Ml Vial SUBQ 5,000 unit BID HENOK Administration Hydroxyzine Pamoate 25 mg 01/20/24 20:02 Hydroxyzine Pamoate 25 Mg Capsule PO Q6H PRN Anxiety Metoprolol Tartrate 25 mg 01/18/24 12:07 01/21/24 09:19 Metoprolol Tartrate 25 Mg Tablet PO 25 mg BID HENOK Administration Metoprolol Tartrate 5 mg 01/18/24 15:24 Metoprolol 5 Mg/5 Ml Vial IVP Q6H PRN elevated heart rate Mirtazapine 30 mg 01/18/24 21:00 01/20/24 21:27 Mirtazapine 15 Mg Tablet PO 30 mg QPM HENOK Administration Montelukast Sodium 10 mg 01/18/24 21:00 01/20/24 21:27 Montelukast 10 Mg Tablet PO 10 mg QPM HENOK Administration Multivitamins/Minerals 1 tab 01/19/24 08:00 01/21/24 09:18 Multivitamin W/Minerals Tablet PO 1 tab DAILYWM HENOK Administration Ondansetron HCl 4 mg 01/18/24 12:07 Ondansetron Odt 4 Mg Tablet TL Q6HR PRN Nausea / Vomiting Potassium Chloride 10 meq 01/19/24 08:00 01/21/24 09:18 Potassium Chloride 10 Meq Capsule PO 10 meq DAILYWM HENOK Administration Prednisone 40 mg 01/18/24 12:00 01/21/24 09:18 Prednisone 20 Mg Tablet PO 01/22/24 09:01 40 mg DAILY HENOK Administration Sodium Chloride 10 ml 01/18/24 12:07 Sodium Chloride Flush 0.9% 10 Ml Syringe IVP PRN PRN NEEDED PER PROVIDER ORDERS Sodium Chloride 10 ml 01/18/24 17:00 01/21/24 09:19 Sodium Chloride Flush 0.9% 10 Ml Syringe IVP 10 ml 0100,0900,1700 HENOK Administration Tamsulosin HCl 0.4 mg 01/19/24 09:00 01/21/24 09:18 Tamsulosin 0.4 Mg Capsule PO 0.4 mg DAILY HENOK Administration Objective Vital Signs/Intake & Output Reviewed Vital Signs: Yes Vital Signs: Vital Signs x48h Temp Pulse Pulse Resp BP BP Pulse Ox 01/21/24 09:19 78 156/73 H 01/21/24 08:45 36.7 C 78 18 156/73 H 95 01/21/24 08:08 O2 Flow Rate 01/21/24 09:19 01/21/24 08:45 2 01/21/24 08:08 2 Intake & Output: Intake & Output 01/19/24 01/20/24 01/21/24 01/22/24 05:59 04:59 05:59 05:59 Intake Total 250 / 250 1280 / 1280 817 / 817 340 / 340 Output Total 580 / 580 880 / 880 700 / 700 0 / 0 Balance -330 / -330 400 / 400 117 / 117 340 / 340 Weight (kg) 45 kg Objective General Appearance: positive No acute distress and Alert Eyes Bilateral: positive Normal inspection Neck: positive Nml inspection Respiratory: positive Chest non-tender, No respiratory distress and Breath sounds nml Cardiovascular: positive Irregularly irregular ( ) Abdomen: positive Non-tender and No distention Back: positive Nml inspection Skin: positive Color nml Extremities: positive No pedal edema Neurologic/Psychiatric: positive Oriented x3 Lab Results 01/21/24 05:52 01/21/24 05:52 Other Labs: Lab Results x24hrs 01/21/24 Range/Units 05:52 WBC 14.1 H (4.8-10.8) x10^3/uL RBC 4.28 (4.20-5.40) 10^6/uL Hgb 12.5 (12.0-16.0) g/dL Hct 41.4 (37.0-47.0) % MCV 96.7 (81.0-99.0) fL MCH 29.2 (27.0-31.0) pg MCHC 30.2 L (32.0-36.0) g/dL RDW 12.7 (12.0-15.0) % Plt Count 378 (130-450) 10^3/uL MPV 9.5 (7.9-10.8) fL Neut # (Auto) 10.5 H (1.5-6.6) 10^3/uL Lymph # (Auto) 2.4 (1.5-3.5) 10^3/uL [place] # (Auto) 1.1 H (0.0-1.0) 10^3/uL Eos # (Auto) 0.1 (0.0-0.7) 10^3/uL Baso # (Auto) 0.0 (0.0-0.1) 10^3/uL Absolute Nucleated RBC 0.00 x10^3/uL Nucleated RBC % 0.0 /100WBC Sodium 142 (135-145) mmol/L Potassium 3.9 (3.5-4.5) mmol/L Chloride 97 L (101-111) mmol/L Carbon Dioxide 44 H* (21-32) mmol/L Anion Gap 1.0 L (6-13) BUN 29 H (6-20) mg/dL Creatinine 0.8 (0.6-1.3) mg/dL Estimated GFR (MDRD) 68 L (>89) Glucose 136 H (74-104) mg/dL Calcium 9.1 (8.5-10.3) mg/dL Assessment/Plan Problem List (1) COPD with acute exacerbation: Impression: Chronic hypercarbic respiratory failure with superimposed acute hypoxemic respiratory failure as evidenced by increased oxygen requirements. She has improved somewhat with administration of steroids and bronchodilators. At home she is on 2 to 4 L of oxygen via nasal cannula. At this time she is on 2 L via nasal cannula with an oxygen saturation in the mid 90's. Imaging while in the emergency department is a chest x-ray which shows no acute cardiopulmonary process. As I reviewed the chest x-ray image and I see hyperinflation of the lungs. I do not appreciate any infiltrates. I have ordered prednisone 40 mg a day. She will get this for a total of 5 days. She is day 3/5. in the emergency department over the course of 24 hours, she got 250 mg of Solu- Medrol. She got IV magnesium. She has gotten multiple nebulizers. I have ordered albuterol ipratropium nebulizer treatments every 4 hours. I started azithromycin in an effort to improve her white blood cell count and this has been effective We will treat her with 500 mg x 3 days. She is day 2 Laboratory Tests 01/17/24 01/18/24 01/19/24 15:55 13:09 05:23 WBC 15.0 H 19.0 H 17.3 H 01/20/24 05:59 WBC 15.5 H It sounds as if over the last year to year and a half her functional status has significantly declined. She spends most of her time in bed. She has difficulty getting up and moving both due to her dyspnea on exertion and her chronic musculoskeletal pain. Please see my discussion of her ambulatory dysfunction below. (2) Atrial fibrillation with RVR: Impression: Most recent echocardiogram was 12/13/2023. It shows normal left ventricular size and systolic function with an left ventricular ejection fraction of 55 to to 60%. It shows normal right ventricular size and systolic function. It shows mild tricuspid regurgitation EKG this admission shows Atrial fib with a rate of 103 is seen on EKG, consistent with monitor. . . troponin is 19.5. I will not repeat unless she develops signs of worsening cardiac function. (3) Bradycardia, unspecified: Impression: This is a new development since starting diltiazem. I am somewhat suspicious that she was not taking her metoprolol at home and therefore was not rate controlled. We have put her in the hospital given her home metoprolol and on top of that given her diltiazem which is probably causing these pauses. I have discontinued her diltiazem we will continue to monitor her on telemetry. telemetry did not show any additional pauses after the diltiazem was discontinued. She has occasional bradycardia at rest. (4) Adult failure to thrive: Impression: BMI is 16. has not increased over the last year to 18 months as her health has declined and her COPD has worsened. She is not thriving in her current environment, but in my discussion with her home caregivers, it would seem that she is getting what she wants to eat when she wants to eat. reviewed home health notes that are scanned into chart. it appears that she did not respond to contact from HH agency. Although she has access to nutrition, she is not taking in adequate nutrition. 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 Palliative care note 09/05/22 reviewed. At that time, patient did not want to go to SNF, but that has changed. She wants to live in a facility. I would recommend outpatient palliative care consultation. (5) Chronic back pain: Impression: Chronic. [place] and APAP have been effective. Overall approach to care is palliative, and I think it is appropriate for her to have narcotics for her back pain. (6) DNI (do not intubate): Impression: DNR/DNI. there is a POLST on file. (7) Severe protein-calorie malnutrition: Impression: see above "failure to thrive" (8) Ambulatory dysfunction: Impression: She states that she is in the basement most of the time and she is not welcome upstairs in her home. She states she forgets to take her medications at home. She has previously been established with home [facility] but states that home health stopped coming to see her. She feels very clear that she cannot go home and she will not go home. She wants to go to an assisted living facility I explained to her that the situation we are in is 1 that will not satisfy everyone's desires. She wants to go to some sort of a supported living situation. She has family members who are supportive of this according to social work. Unfortunately the things that need to be done cannot be done in the timeframe to get her from here to an assisted living facility. This is her second admission in this situation. She has been seen here by physical therapy. She has refused to work with physical therapy. She does not want a long-term facility for rehab. She wants somewhere that she can go and be given meals and medication I called her child Renate. I had a 25-minute telephone conversation with Renate yesterday Renate is distraught over this situation. She says that what Tiffany's family has offered to her is not good enough for Tiffany. She is given what she wants to eat. she does not always want to eat at mealtimes but she has snacks when she wants them. she gets to the bathroom but overall refuses to help herself and does not want to be left alone at home. She has a stair chair that allows her to come up stairs and she has two oxygen concentrators in the home so that she has oxygen for everywhere that she wants or needs to be within her home. Renate states that Tiffany feels entitled and wants to be waited on "[id number]". Renate states that they do give Tiffany everything that they possibly can, including anything she may need or want in the middle of the night. If she wants a snack in the middle of the night, she gets it, although sometimes she does have to yell to wake up family members who are heavily sleeping. For a time she was using only a bedside commode but is doing better getting to the bathroom now that she has a toilet riser. She has a niece who works full-time and has friends outside the home but is also available to help. Tiffany's medication boxes are filled on a weekly basis but Renate notes that she does sometimes find pills scattered about outside the medication box and that Tiffany does not always take her medications. The family is attempting to meet Tiffany's needs but seems to be unable to meet her expectations. Tiffany would like the level of care at home that she gets in the hospital. It is highly unlikely that she would get this level of care in a facility but that is not the patient's perception. I explained to Renate as I have explained to Tiffany that it is unlikely we will be able to meet Tiffany's expectations for discharge. There are are possibilities for working towards this expectation of living in a facility within the community, and this will take time. It may also place a financial burden on the patient's family. Tiffany is medically clear for discharge today. She is appealing her discharge with Medicare which is her right. I have spent 30 minutes in the care of this patient today. This includes time [id number], review and ordering of diagnostic imaging and laboratory studies.. Monitoring the patient's signs symptoms, evaluation of medication effectiveness and patient's response to treatment.
[2024-01-21] MEDS: hydrOXYzine PAMOATE 25 MG CAPSULE PO PRN (14:37)
[2024-01-21] MEDS: ONDANSETRON ODT 4 MG TABLET TL PRN (19:13)
--- NOTE | 2024-01-22 14:08 | PROVIDER PROGRESS NOTE ---
Subjective Prog Note Date Prog Note Date: 01/22/24 Prog Note Time: 13:00 Subjective Pt reports feeling: No change Subjective: She has been resting. She awakens easily. She states that she does not want to go home but otherwise has no complaints. Her back pain is controlled with current medications. Current Medications Current Medications Current Medications: Current Medications Generic Name Dose Route Start Last Admin Trade Name Freq PRN Reason Stop Dose Admin Acetaminophen 650 mg 01/18/24 12:07 01/20/24 16:02 Acetaminophen 325 Mg Tablet PO 650 mg Q4HR PRN Administration Pain 1 to 4, or Fever Hydrocodone Bitart/Acetaminophen 1 tab 01/18/24 12:07 01/21/24 22:23 Hydrocod/Acetam 10 Mg/325 Mg Tablet PO 1 tab Q4HR PRN Administration Pain 8 to 10 Albuterol 2.5 mg 01/19/24 10:42 Albuterol Neb 2.5 Mg/3 Ml INH Q6H PRN shortness of breath or wheezing Albuterol/Ipratropium 3 ml 01/18/24 12:07 01/21/24 14:58 Ipratropium/Albuterol 3 Ml Neb INH 3 ml Q4HR PRN Administration Wheezing Aspirin 81 mg 01/19/24 09:00 01/22/24 08:15 Aspirin Ec 81 Mg Tablet PO 81 mg DAILY HENOK Administration Atorvastatin Calcium 10 mg 01/18/24 21:00 01/21/24 22:13 Atorvastatin 10 Mg Tablet PO 10 mg QPM HENOK Administration Furosemide 20 mg 01/19/24 09:00 01/22/24 08:15 Furosemide 20 Mg Tablet PO 20 mg DAILY HENOK Administration Heparin Sodium (Porcine) 5,000 unit 01/18/24 21:00 01/22/24 08:12 Heparin 5,000 Unit/Ml Vial SUBQ 5,000 unit BID HENOK Administration Hydroxyzine Pamoate 25 mg 01/20/24 20:02 01/21/24 14:37 Hydroxyzine Pamoate 25 Mg Capsule PO 25 mg Q6H PRN Administration Anxiety Metoprolol Tartrate 25 mg 01/18/24 12:07 01/22/24 08:15 Metoprolol Tartrate 25 Mg Tablet PO 25 mg BID HENOK Administration Metoprolol Tartrate 5 mg 01/18/24 15:24 Metoprolol 5 Mg/5 Ml Vial IVP Q6H PRN elevated heart rate Mirtazapine 30 mg 01/18/24 21:00 01/21/24 22:13 Mirtazapine 15 Mg Tablet PO 30 mg QPM HENOK Administration Montelukast Sodium 10 mg 01/18/24 21:00 01/21/24 22:13 Montelukast 10 Mg Tablet PO 10 mg QPM HENOK Administration Multivitamins/Minerals 1 tab 01/19/24 08:00 01/22/24 08:15 Multivitamin W/Minerals Tablet PO 1 tab DAILYWM HENOK Administration Ondansetron HCl 4 mg 01/18/24 12:07 01/21/24 19:13 Ondansetron Odt 4 Mg Tablet TL 4 mg Q6HR PRN Administration Nausea / Vomiting Potassium Chloride 10 meq 01/19/24 08:00 01/22/24 08:15 Potassium Chloride 10 Meq Capsule PO 10 meq DAILYWM HENOK Administration Sodium Chloride 10 ml 01/18/24 12:07 Sodium Chloride Flush 0.9% 10 Ml Syringe IVP PRN PRN NEEDED PER PROVIDER ORDERS Sodium Chloride 10 ml 01/18/24 17:00 01/22/24 08:16 Sodium Chloride Flush 0.9% 10 Ml Syringe IVP 10 ml 0100,0900,1700 HENOK Administration Tamsulosin HCl 0.4 mg 01/19/24 09:00 01/22/24 08:15 Tamsulosin 0.4 Mg Capsule PO 0.4 mg DAILY HENOK Administration Objective Vital Signs/Intake & Output Reviewed Vital Signs: Yes Vital Signs: Vital Signs x48h Temp Pulse Pulse Resp BP BP Pulse Ox 01/22/24 08:15 80 127/71 01/22/24 08:00 01/22/24 07:58 36.7 C 82 18 127/71 92 O2 Flow Rate 01/22/24 08:15 01/22/24 08:00 3 01/22/24 07:58 3 Intake & Output: Intake & Output 01/20/24 01/21/24 01/22/24 01/23/24 04:59 05:59 05:59 05:59 Intake Total 1280 / 1280 817 / 817 820 / 820 600 / 600 Output Total 880 / 880 700 / 700 425 / 425 150 / 150 Balance 400 / 400 117 / 117 395 / 395 450 / 450 Objective General Appearance: positive No acute distress and Alert Eyes Bilateral: positive Normal inspection Neck: positive Nml inspection Respiratory: positive Chest non-tender, No respiratory distress and Rhonchi Cardiovascular: positive Irregularly irregular ( ) Abdomen: positive Non-tender and No distention Back: positive Nml inspection Skin: positive Color nml Extremities: positive No pedal edema Neurologic/Psychiatric: positive Oriented x3 Lab Results 01/21/24 05:52 01/21/24 05:52 Other Labs: Lab Results x24hrs 01/21/24 Range/Units 05:52 WBC 14.1 H (4.8-10.8) x10^3/uL RBC 4.28 (4.20-5.40) 10^6/uL Hgb 12.5 (12.0-16.0) g/dL Hct 41.4 (37.0-47.0) % MCV 96.7 (81.0-99.0) fL MCH 29.2 (27.0-31.0) pg MCHC 30.2 L (32.0-36.0) g/dL RDW 12.7 (12.0-15.0) % Plt Count 378 (130-450) 10^3/uL MPV 9.5 (7.9-10.8) fL Neut # (Auto) 10.5 H (1.5-6.6) 10^3/uL Lymph # (Auto) 2.4 (1.5-3.5) 10^3/uL [place] # (Auto) 1.1 H (0.0-1.0) 10^3/uL Eos # (Auto) 0.1 (0.0-0.7) 10^3/uL Baso # (Auto) 0.0 (0.0-0.1) 10^3/uL Absolute Nucleated RBC 0.00 x10^3/uL Nucleated RBC % 0.0 /100WBC Sodium 142 (135-145) mmol/L Potassium 3.9 (3.5-4.5) mmol/L Chloride 97 L (101-111) mmol/L Carbon Dioxide 44 H* (21-32) mmol/L Anion Gap 1.0 L (6-13) BUN 29 H (6-20) mg/dL Creatinine 0.8 (0.6-1.3) mg/dL Estimated GFR (MDRD) 68 L (>89) Glucose 136 H (74-104) mg/dL Calcium 9.1 (8.5-10.3) mg/dL Assessment/Plan Problem List (1) COPD with acute exacerbation: Impression: Chronic hypercarbic respiratory failure with superimposed acute hypoxemic respiratory failure as evidenced by increased oxygen requirements. She has improved somewhat with administration of steroids and bronchodilators. At home she is on 2 to 4 L of oxygen via nasal cannula. At this time she is on 2 L via nasal cannula with an oxygen saturation in the mid 90's. Imaging while in the emergency department is a chest x-ray which shows no acute cardiopulmonary process. As I reviewed the chest x-ray image and I see hyperinflation of the lungs. I do not appreciate any infiltrates. I have ordered prednisone 40 mg a day. She will get this for a total of 5 days. She is day 07/21. in the emergency department over the course of 24 hours, she got 250 mg of Solu- Medrol. She got IV magnesium. She has gotten multiple nebulizers. I have ordered albuterol ipratropium nebulizer treatments every 4 hours. I started azithromycin in an effort to improve her white blood cell count and this has been effective We will treat her with 500 mg x 3 days. She has completed this Laboratory Tests 01/18/24 01/19/24 01/20/24 13:09 05:23 05:59 WBC 19.0 H 17.3 H 15.5 H 01/21/24 05:52 WBC 14.1 H It sounds as if over the last year to year and a half her functional status has significantly declined. She spends most of her time in bed. She has difficulty getting up and moving both due to her dyspnea on exertion and her chronic musculoskeletal pain. Please see my discussion of her ambulatory dysfunction below. (2) Atrial fibrillation with RVR: Impression: Most recent echocardiogram was 12/13/2023. It shows normal left ventricular size and systolic function with an left ventricular ejection fraction of 55 to to 60%. It shows normal right ventricular size and systolic function. It shows mild tricuspid regurgitation EKG this admission shows Atrial fib with a rate of 103 is seen on EKG, consistent with monitor. . . troponin is 19.5. I will not repeat unless she develops signs of worsening cardiac function. (3) Bradycardia, unspecified: Impression: This is a new development since starting diltiazem. I am somewhat suspicious that she was not taking her metoprolol at home and therefore was not rate controlled. We have put her in the hospital given her home metoprolol and on top of that given her diltiazem which is probably causing these pauses. I have discontinued her diltiazem we will continue to monitor her on telemetry. telemetry did not show any additional pauses after the diltiazem was discontinued. She has occasional bradycardia at rest. (4) Adult failure to thrive: Impression: BMI is 16. has not increased over the last year to 18 months as her health has declined and her COPD has worsened. She is not thriving in her current environment, but in my discussion with her home caregivers, it would seem that she is getting what she wants to eat when she wants to eat. reviewed home health notes that are scanned into chart. it appears that she did not respond to contact from HH agency. Although she has access to nutrition, she is not taking in adequate nutrition. 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 Palliative care note 09/05/22 reviewed. At that time, patient did not want to go to SNF, but that has changed. She wants to live in a facility. I would recommend outpatient palliative care consultation. (5) Chronic back pain: Impression: Chronic. [place] and APAP have been effective. Overall approach to care is palliative, and I think it is appropriate for her to have narcotics for her back pain. (6) DNI (do not intubate): Impression: DNR/DNI. there is a POLST on file. (7) Severe protein-calorie malnutrition: Impression: see above "failure to thrive" (8) Ambulatory dysfunction: Impression: She states that she is in the basement most of the time and she is not welcome upstairs in her home. She states she forgets to take her medications at home. She has previously been established with home health but states that home health stopped coming to see her. She feels very clear that she cannot go home and she will not go home. She wants to go to an assisted living facility I explained to her that the situation we are in is 1 that will not satisfy everyone's desires. She wants to go to some sort of a supported living situation. She has family members who are supportive of this according to social work. Unfortunately the things that need to be done cannot be done in the timeframe to get her from here to an assisted living facility. This is her second admission in this situation. She has been seen here by physical therapy. She has refused to work with physical therapy. She does not want a long-term facility for rehab. She wants somewhere that she can go and be given meals and medication I called her child Renate. I had a 25-minute telephone conversation with Renate several days ago. Renate is distraught over this situation. She says that what Tiffany's family has offered to her is not good enough for Tiffany. She is given what she wants to eat. she does not always want to eat at mealtimes but she has snacks when she wants them. she gets to the bathroom but overall refuses to help herself and does not want to be left alone at home. She has a stair chair that allows her to come up stairs and she has two oxygen concentrators in the home so that she has oxygen for everywhere that she wants or needs to be within her home. Renate states that Tiffany feels entitled and wants to be waited on "[id number]". Renate states that they do give Tiffany everything that they possibly can, including anything she may need or want in the middle of the night. If she wants a snack in the middle of the night, she gets it, although sometimes she does have to yell to wake up family members who are heavily sleeping. For a time she was using only a bedside commode but is doing better getting to the bathroom now that she has a toilet riser. She has a niece who works full-time and has friends outside the home but is also available to help. Tiffany's medication boxes are filled on a weekly basis but Renate notes that she does sometimes find pills scattered about outside the medication box and that Tiffany does not always take her medications. The family is attempting to meet Tiffany's needs but seems to be unable to meet her expectations. Tiffany would like the level of care at home that she gets in the hospital. It is highly unlikely that she would get this level of care in a facility but that is not the patient's perception. I explained to Renate as I have explained to Tiffany that it is unlikely we will be able to meet Tiffany's expectations for discharge. There are are possibilities for working towards this expectation of living in a facility within the community, and this will take time. It may also place a financial burden on the patient's family. Tiffany is medically clear for discharge. She is appealing her discharge with Medicare which is her right. I have spent 30 minutes in the care of this patient today. This includes time [id number], review and ordering of diagnostic imaging and laboratory studies.. Monitoring the patient's signs symptoms, evaluation of medication effectiveness and patient's response to treatment.
[2024-01-23 08:04] VITALS: O2SAT 99
--- NOTE | 2024-01-23 09:10 | Discharge Summary ---
Discharge Summary Admit Date: 01/18/24 Discharge Date: 01/23/24 Discharging Provider: Alon Parkinson NP Primary Care Provider: Bernadette Pete Code Status: Do Not Attempt Resuscitation DIAGNOSES Admission Diagnoses: COPD with Acute exacerbation Atrial fibrillation with tachycardic ventricular rate Adult failure to thrive Chronic back pain DNI Severe protein calorie malnutrition Ambulatory dysfunction Discharge Diagnoses with Status of Each Condition: COPD with Acute exacerbationexacerbation resolved, COPD chronic Atrial fibrillation with tachycardic ventricular rateRVR resolved, atrial fibrillation chronic BradycardiaResolved Adult failure to thriveActive Chronic back painchronic DNIchronic Severe protein calorie malnutritionActive Ambulatory dysfunctionactive HPI History of Present Illness: 83-year-old female past medical history significant for A-fib not on OAC, end- stage COPD, chronic back pain, hypertension, appendicitis treated nonoperatively presented to the ER with dyspnea times several days. In the ER, chest x-ray was performed which was found to be negative. She received a dose of steroids and hospitalist team was contacted for admission for acute on chronic respiratory failure with hypoxia as well as acute exacerbation of COPD HOSPITAL COURSE Hospital Course: She received a 5-day course of p.o. steroids, as well as IV magnesium, Azithromycin, and nebulizer treatments and her respiratory failure resolved. She was in A-fib RVR on admission, and was started on diltiazem in addition to her home metoprolol regimen. This caused bradycardia that resolved after her Cardizem was discontinued. We have medically optimized this patient is much as possible, and she is stable to return home. She expressed concern for her home situation, and we tried to place her in a facility but she does not qualify at this time. Her discharge was appealed, and today was the last day she could stay in the hospital as her appeal was denied ALLERGIES Allergies Allergy/AdvReac Type Severity Reaction Status Date / Time Penicillins Allergy Intermediate Hives, Verified 01/17/24 16:14 swelling aspirin Allergy Mild Rash Verified 01/17/24 16:14 piroxicam (From Feldene) Allergy Mild Rash Verified 01/17/24 16:14 meperidine (From Demerol) Allergy Unknown Verified 01/17/24 16:14 MEDICATIONS Ambulatory Orders Medication Instructions Recorded Confirmed montelukast 10 mg tablet 10 mg PO QPM copd 09/06/22 01/17/24 simvastatin 20 mg tablet (Zocor) 20 mg PO QPM hyperlipidemia ##0 09/06/22 01/17/24 furosemide 20 mg tablet 20 - 60 mg PO DAILY 11/05/23 01/17/24 metoprolol tartrate 25 mg tablet 25 mg PO BID 11/05/23 01/17/24 aspirin 81 mg tablet,delayed 81 mg PO DAILY 11/06/23 01/17/24 release mirtazapine 15 mg tablet 30 mg PO QPM appetite 11/06/23 01/17/24 stimulant/SLEEP potassium chloride 10 mEq 10 meq PO QDAY #90 tabs 12/27/23 01/17/24 tablet,extended release tamsulosin 0.4 mg capsule 0.4 mg PO DAILY urinary retention 12/27/23 01/17/24 #90 caps dexamethasone 2 mg tablet 2 mg PO DAILY 12/29/23 01/17/24 albuterol sulfate 2.5 mg/3 mL 2.5 mg inhalation Q6H PRN 01/18/24 01/18/24 (0.083 %) solution for nebulization shortness of breath or wheezing albuterol sulfate 90 mcg/actuation 2 inh inhalation Q4H PRN shortness 01/18/24 01/18/24 aerosol inhaler of breath or wheezing methocarbamol 500 mg tablet 500 mg PO BID 01/18/24 01/18/24 acetaminophen 325 mg tablet 650 mg (2 x 325 mg) PO Q4HR PRN 01/21/24 Pain 1 to 4, or Fever #30 tabs azithromycin 250 mg tablet 500 mg (2 x 250 mg) PO ONCE #1 tab 01/21/24 hydrocodone 10 mg-acetaminophen 1 tab PO Q4HR PRN Pain 8 to 10 #20 01/21/24 325 mg tablet tabs [id number] 1 tab PO DAILYWM #30 tabs 01/21/24 fumarate 19 mg-folic acid 400 mcg tablet (Therapeutic-M) prednisone 20 mg tablet 40 mg (2 x 20 mg) PO DAILY #4 tabs 01/21/24 PHYSICAL EXAM AT DISCHARGE General Appearance: positive No acute distress Eyes Bilateral: positive Normal inspection ENT: positive ENT inspection nml Neck: positive Nml inspection Respiratory: positive Chest non-tender and Rhonchi Cardiovascular: positive Irregularly irregular Peripheral Pulses: positive 2+ Abdomen: positive Non-tender Skin: positive Color nml Extremities: positive Non-tender Neurologic/Psychiatric: positive Oriented x3 LABS 01/21/24 05:52 01/21/24 05:52 SEPSIS Current Stage of Sepsis: Ruled out FOLLOW UP Follow Up: With PCP TIME SPENT Time Spent in Discharge (Minutes): 25 Discharge Plan Discharge Patient Disposition: 06 Home Health Service Condition: Fair Prescriptions: New acetaminophen 325 mg Tablet 650 mg PO Q4HR PRN (Reason: Pain 1 to 4, or Fever) Qty: 30 0RF azithromycin 250 mg Tablet 500 mg PO ONCE Qty: 1 0RF hydrocodone-acetaminophen 10-325 mg Tablet 1 tab PO Q4HR PRN (Reason: Pain 8 to 10) Qty: 20 0RF Therapeutic-M 19 mg iron- 400 mcg Tablet 1 tab PO DAILYWM Qty: 30 0RF prednisone 20 mg tablet 40 mg PO DAILY Qty: 4 0RF Continued montelukast 10 MG tablet 10 mg PO QPM 0RF simvastatin [Zocor] 20 MG tablet 20 mg PO QPM Qty: 0 0RF Patient Comments: TAKE 1 TABLET EVERY NIGHT AT BEDTIME furosemide 20 MG tablet 20 - 60 mg PO DAILY Rx Instructions: for swelling as directed metoprolol tartrate 25 MG tablet 25 mg PO BID aspirin 81 MG tablet,delayed release (DR/EC) 81 mg PO DAILY mirtazapine 15 MG tablet 30 mg PO QPM dexamethasone 2 mg tablet 2 mg PO DAILY Patient Comments: take 1 tablet by mouth once daily for APPETITE albuterol sulfate 2.5 mg /3 mL (0.083 %) solution for nebulization 2.5 mg inhalation Q6H PRN (Reason: shortness of breath or wheezing) Rx Instructions: use in neb 2-4 times daily albuterol sulfate 90 mcg/actuation HFA aerosol inhaler 2 inh INHALATION Q4H PRN (Reason: shortness of breath or wheezing) Rx Instructions: 2 puff using inhaler every four hours as needed methocarbamol 500 mg tablet 500 mg PO BID potassium chloride 10 mEq tablet extended release 10 meq PO QDAY Qty: 90 3RF tamsulosin 0.4 mg capsule 0.4 mg PO DAILY Qty: 90 3RF Patient Comments: take 1 capsule by mouth once daily at bedtime Activity Restrictions: Activity as Tolerated Diet: Regular Health Concerns: You came into the hospital with increased oxygen requirements. Your lungs got back to their baseline level of function with treatment. You received treatment with steroids, breathing medications and a 3-day course of antibiotics. Your chest x-ray looked okay when you came into the hospital, there was no pneumonia. Additionally your heart rate was very high when you came into the hospital. I resumed her home metoprolol medication and your heart rate was well-controlled from that point. I believe that you had been having trouble taking your medications at home and that is why your heart rate was out of control when you came to us At home you have lost a lot of weight and you have not been doing well. This is a difficult situation because your family wants you at home and they are willing to help you as much as they can. We understand that you do not want to go home but there are not resources currently for you to go into a facility. We have ordered home health social work. Social workers in the community can help you to liquidate assets so that you have money to go into a care facility. If you truly want to go into some sort of a care facility this is your best option. I had a long discussion with your family on the phone. They are willing to help take care of you at home. They are also willing to help you get into a home if that is what you want. We cannot get you into a facility directly from the hospital. Assessment: COPD exacerbation which has improved with treatment Atrial fibrillation with rapid ventricular response which has improved with resumption of home medications Chronic protein calorie malnutrition Ambulatory dysfunction Plan of Treatment: Keep taking your prescribed medications I have prescribed you pain medication for your back pain. You can also take Tylenol. Follow-up with your primary care provider within 10 days Work with social workers to get your situation straightened out so that you can go into a facility if that is what you want Print Language: Kinyarwanda Patient Instructions: COPD, Chronic Pain, ED Failure To Thrive Follow-up Care: Gina Pete PA-C [Primary Care Provider] -
== END 2024-01-23 11:45 | disposition home health service (06) | DRG 190 ==
LOC: ED 15:37 → MS2 01-18 11:22
PROVIDERS: ADMIT Physician Assistant Medical; ATTEND Physician Assistant Medical
DX: G89.29 Other chronic pain; J44.1 Chronic obstructive pulmonary disease with (acute) exacerbation; Z20.818 Contact with and (suspected) exposure to other bacterial communicable diseases; R00.1 Bradycardia, unspecified; M54.50 Low back pain, unspecified; Z20.828 Contact with and (suspected) exposure to other viral communicable diseases; J96.21 Acute and chronic respiratory failure with hypoxia; Z79.899 Other long term (current) drug therapy; Z86.73 Personal history of transient ischemic attack (TIA), and cerebral infarction without residual deficits; Z87.891 Personal history of nicotine dependence; I48.20 Chronic atrial fibrillation, unspecified; Z79.52 Long term (current) use of systemic steroids; J96.12 Chronic respiratory failure with hypercapnia; Z91.81 History of falling; I48.91 Unspecified atrial fibrillation; Z66 Do not resuscitate; M53.3 Sacrococcygeal disorders, not elsewhere classified; J96.01 Acute respiratory failure with hypoxia; Z74.01 Bed confinement status; I10 Essential (primary) hypertension; R62.7 Adult failure to thrive; Z20.822 Contact with and (suspected) exposure to COVID-19; E43 Unspecified severe protein-calorie malnutrition; Z79.82 Long term (current) use of aspirin; Z91.412 Personal history of adult neglect; Z68.1 Body mass index [BMI] 19.9 or less, adult

== ENCOUNTER 2024-03-21 13:41 | Inpatient (IN) ==
--- NOTE | 2024-03-21 13:56 | ED Physician Documentation ---
PD HPI DYSPNEA Stated complaint Stated Complaint: SOA Chief complaint Chief Complaint: Resp History obtained from History obtained from: Patient and EMS History of Present Illness Timing - onset: How many days ago (2-3) Timing - duration: Days (2-3) Timing - details: Abrupt onset (over just couple of days) and Still present Inciting event(s): No URI (did not feel fevers nor chills, sore throat, congested. Did have cough and increased dyspnea/wheezing. ) Improved by: O2 and Inhaler/neb (decreasingly improved with home MDI. ) Worsened by: Coughing Associated symptoms: Cough and Wheezing; No Fever, Hemoptysis, Chest pain / discomfort or Bilateral edema Meds/Allgy Home Medications Ambulatory Orders Medication Instructions Recorded Confirmed montelukast 10 mg tablet 10 mg PO QPM copd 09/06/22 02/28/24 furosemide 20 mg tablet 20 - 60 mg PO DAILY 11/05/23 02/28/24 metoprolol tartrate 25 mg tablet 25 mg PO BID 11/05/23 02/28/24 aspirin 81 mg tablet,delayed 81 mg PO DAILY 11/06/23 02/28/24 release mirtazapine 15 mg tablet 30 mg PO QPM appetite 11/06/23 02/28/24 stimulant/SLEEP potassium chloride 10 mEq 10 meq PO QDAY #90 tabs 12/27/23 02/28/24 tablet,extended release tamsulosin 0.4 mg capsule 0.4 mg PO DAILY urinary retention 12/27/23 02/28/24 #90 caps dexamethasone 2 mg tablet 2 mg PO DAILY 12/29/23 02/28/24 albuterol sulfate 2.5 mg/3 mL 2.5 mg inhalation Q6H PRN 01/18/24 02/28/24 (0.083 %) solution for nebulization shortness of breath or wheezing albuterol sulfate 90 mcg/actuation 2 inh inhalation Q4H PRN shortness 01/18/24 02/28/24 aerosol inhaler of breath or wheezing methocarbamol 500 mg tablet 500 mg PO BID 01/18/24 02/28/24 acetaminophen 325 mg tablet 650 mg (2 x 325 mg) PO Q4HR PRN 01/21/24 02/28/24 Pain 1 to 4, or Fever #30 tabs ixwuwzmvocfq-umarkddp-ebcx 1 tab PO DAILYWM #30 tabs 01/21/24 02/28/24 fumarate 19 mg-folic acid 400 mcg tablet (Therapeutic-M) simvastatin 20 mg tablet (Zocor) 20 mg PO QPM hyperlipidemia 90 01/28/24 02/28/24 days #90 tabs cefpodoxime 200 mg tablet 200 mg PO Q12H #10 tabs 03/02/24 doxycycline hyclate 100 mg capsule 100 mg PO BID #10 caps 03/02/24 Allergies Allergies Allergy/AdvReac Type Severity Reaction Status Date / Time Penicillins Allergy Intermediate Hives, Verified 03/21/24 14:01 swelling aspirin Allergy Mild Rash Verified 03/21/24 14:01 piroxicam (From Feldene) Allergy Mild Rash Verified 03/21/24 14:01 meperidine (From Demerol) Allergy Unknown Verified 03/21/24 14:01 [facility] Medical History Medical History Atrial fibrillation with RVR DNI (do not intubate) POLST 08/2022 in scanned documents 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 then pneum 07/2022. weak. failing. 57 Kg 08/2022. Remeron 08/2022. Stroke (cerebrum) 1991 Fall multiple falls since 2021. Left displaced femoral neck fracture fall w transfer to [place] 05/2022 Chronic respiratory failure with hypercapnia started ~2009. Influenza B UTI (urinary tract infection) hx of UTIs. 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 Not a candidate for pacer Cavitary lesion of lung found with 07/2022 admit for pna. attributed to aspiration Hypertension Urinary retention H/O nephrolithotomy with removal of calculi Surgical History Surgical History Status post hip surgery 05/2022 S/P ureteral stent placement Family History Family History Father Colon cancer Mother Parkinson disease Social History Social History Smoking Status: Former smoker If you are a former smoker, when did you quit? (Date/Year): 1984 Number of Years Smoked: 5 How many cigarettes a day do you smoke? (20 cigarettes=1 Pk): 1 Second hand tobacco smoke exposure: No Do you dip or chew tobacco?: No Do you vape?: No Patient requests smoking cessation consult: No Initiate information on smoking cessation: No Living arrangement: At home Marital Status: Single Living Condition: With caregiver(s) and With friend(s) (adopted granddaughter Ben with apergers; Mariana "adopted" but not legally, does shopping, bills, sets up medications; errands not personal care; friend Keyshawn comes daily to help with meals, laundry- has known her for 50 years) Support Person: Yes Relationship: Physical Activity: Bedfast Level: Assisted Home Mobility Equipment: Walker Do you feel safe in your home environment?: Yes Suffered physical, verbal, emotional, or financial abuse?: No History of Abuse: No ETOH Use: None Substance Use: denies use Are you sexually active?: No POLST Patient has POLST: Yes POLST Status: DNR (with selective treatment) Exam Constitutional normal general appearance, distress noted (moderate) and average body habitus HENMT oral mucous membranes abnormal (dry) and oropharynx normal Neck/C-Spine supple Lymph no lymphadenopathy noted Chest inspection of chest normal and palpation of chest normal Respiratory wheezing noted (expiratory wheezes) (significant wheezing idffusely. ) Cardiovascular normal heart rate noted, no JVD and no edema Gastrointestinal abdomen soft to palpation, nontender to palpation and nondistended Extremities no tenderness and no deformity Neurology no focal motor deficit noted and no sensory deficits noted Psychiatry mental status abnormal (somnolent) and thought process abnormality noted (confused) Skin skin color normal Results Vitals Vitals: Vital Signs - 24 hr 03/21/24 13:57 03/21/24 14:03 03/21/24 14:10 Temperature 36.1 C L Temperature Source Temporal Artery Scan Pulse Rate 110 H Respiratory Rate 24 Blood Pressure 166/112 H O2 Saturation 92 86 L Oxygen Delivery Method Nasal Cannula O2 Source Nasal cannula Nasal cannula If not protocol: Oxygen Flow, liters/minute 2 2 2 Fraction of Inspired Oxygen (FIO2) Pain Intensity 5 03/21/24 15:49 03/21/24 16:10 03/21/24 16:39 Temperature 36.5 C Temperature Source Temporal Artery Scan Pulse Rate 95 97 105 H Respiratory Rate 18 22 Blood Pressure 98/63 O2 Saturation 93 Oxygen Delivery Method O2 Source Nasal cannula If not protocol: Oxygen Flow, liters/minute 3 Fraction of Inspired Oxygen (FIO2) 40 Pain Intensity Oxygen O2 Source Nasal cannula Labs Labs: Laboratory Tests 03/21/24 03/21/24 03/21/24 14:23 14:25 16:15 WBC 9.2 RBC 4.29 Hgb 12.0 Hct 43.8 MCV 102.1 H MCH 28.0 MCHC 27.4 L RDW 13.2 Plt Count 362 MPV 9.5 Neut # (Auto) 6.2 Lymph # (Auto) 2.1 Crenshaw # (Auto) 0.5 Eos # (Auto) 0.3 Baso # (Auto) 0.1 Absolute Nucleated RBC 0.00 Nucleated RBC % 0.0 Bld Gas Analysis Time 1624 Sample Site RIGHT RADIAL ABG pH 7.32 L ABG pCO2 77 H* ABG pO2 78 L ABG HCO3 38.5 H ABG Total CO2 40.9 H* ABG O2 Saturation 95 ABG Base Excess 9.6 H Migue Test POSITIVE O2 Delivery Device NASAL CANNULA O2 Liters/Min 3.00 Sodium 144 Potassium 3.8 Chloride 96 L Carbon Dioxide 45 H* Anion Gap 3.0 L BUN 13 Creatinine 0.6 Estimated GFR (MDRD) 95 Glucose 141 H Calcium 8.9 Magnesium 2.0 Total Bilirubin 0.3 AST 12 ALT 7 L Alkaline Phosphatase 58 Total Protein 5.4 L Albumin 3.1 L Globulin 2.3 Albumin/Globulin Ratio 1.3 Lipase 14 Nasal Adenovirus (PCR) NOT DETECTED Nasal B. parapertussis DNA (PCR) NOT DETECTED Nasal Coronavir 229E PCR NOT DETECTED Nasal Coronavir HKU1 PCR NOT DETECTED Nasal Coronavir NL63 PCR NOT DETECTED Nasal Coronavir OC43 PCR NOT DETECTED Nasal Enterovir/Rhinovir PCR NOT DETECTED Nasal Influenza B PCR NOT DETECTED Nasal Influenza A PCR NOT DETECTED Nasal Parainfluen 1 PCR NOT DETECTED Nasal Parainfluen 2 PCR NOT DETECTED Nasal Parainfluen 3 PCR NOT DETECTED Nasal Parainfluen 4 PCR NOT DETECTED Nasal RSV (PCR) NOT DETECTED Nasal B.pertussis DNA PCR NOT DETECTED Nasal C.pneumoniae (PCR) NOT DETECTED Ashutosh Human Metapneumo PCR NOT DETECTED Nasal M.pneumoniae (PCR) NOT DETECTED Nasal SARS-CoV-2 (PCR) NOT DETECTED Rads (name of study) chest xray: Relevant Findings:: Final report received (rounded mesion right mid lung. CT recommended. ) and EMP independent interpretation of test (rounded lesion seen on CXR has been present in prior CXR and was in CT chest over a year ago, Dx as non-tumorous. Concern for cavitary infections. Unknown followup on it, as pt not remembering it. ) PD Medical Decision Making ED course Complexity details: reviewed results (stable CXR with prior old right lung lesion. No noted new infiltrates. She is not feverish nor having URI symptoms per se, though some coughing. Consider exac COPD vs infectious cause. ), re- evaluated patient (becoming more alert and conversant after 20-30 minutes on the BiPAP. I imagine improved CO2 level. Hospitalist seeing pt and wrote order for the ICU. ), considered differential (came in via EMS due to hypoxia and work of breathing. Supplemental oxygen increases sats. Pt still somnolent, dazed appearance. ) and d/w patient ED course: The patient with history of emphysema/COPD on home nebulizers and oxygen was stated increased trouble breathing over the last 2 to 3 days. No fever or chills. She was noted by caregiver in the house to be worse trouble breathing and somnolent. EMS was called. They noted her to have low oxygen level. They did not know her usual concentration of oxygen. They gave nebulizer treatment e n route as well. The patient arrives with less wheezing reported by EMS. She was able to maintain oxygenation above 90% with nasal cannula. However she was still rather somnolent and sluggish for answering questions. A blood gas was subsequently done and showed her pCO2 to be 76. She was placed on BiPAP for concerns of hypoventilation. We are maintaining her nasal cannula at the lowest setting week and was down to 4 L nasal cannula. She presumably is a chronic retainer and prior blood gases looked likely to be in the 50s on her pCO2 but had been in the 60s a couple of times, including this past December, at which time she was admitted to the hospital for respiratory failure. Chest x-ray shows old chronic changes without any acute infiltrate. Respiratory panel is without any current positive infections. Blood count is good and she is afebrile. I am not getting a sense of an acute infection per se though consider possibility of a antibiotics for a COPD exacerbation. We did give a dose of dexamethasone though. I contacted the hospitalist who will come see the patient. Critical Care Time(min): 45 Time Includes: Direct patient care, Reassess patient, Document care, Coordinate care and Medical consult Data interpretation: Labs, Pulse ox, ABG and CXR Discharge Plan Discharge Patient Disposition: 66 [facility] DC/Xfer Condition: Fair Clinical Impression: Respiratory failure, Severe chronic obstructive pulmonary disease, Dyspnea Interventions: ED Admission Assessment Last Done: 03/21/24 18:14
[2024-03-21 14:31] LABS: BASOPHILS # (AUTO) 0.1 10^3/uL (0.0-0.1); BASOPHILS % (AUTO) 0.9 %; EOSINOPHILS # (AUTO) 0.3 10^3/uL (0.0-0.7); HCT - HEMATOCRIT 43.8 % (37.0-47.0); LYMPHOCYTES # (AUTO) 2.1 10^3/uL (1.5-3.5); LYMPHOCYTES % (AUTO) 22.5 %; MEAN CORPUSCULAR HGB CONC 27.4 g/dL (32.0-36.0); MEAN CORPUSCULAR VOLUME 102.1 fL (81.0-99.0); MEAN PLATELET VOLUME 9.5 fL (7.9-10.8); MONOCYTES # (AUTO) 0.5 10^3/uL (0.0-1.0); MONOCYTES % (AUTO) 5.9 %; NEUTROPHILS # (AUTO) 6.2 10^3/uL (1.5-6.6); NEUTROPHILS % (AUTO) 67.5 %; PLT - PLATELET COUNT 362 10^3/uL (130-450); RED BLOOD COUNT 4.29 10^6/uL (4.20-5.40); RED CELL DISTRIBUTION WIDTH 13.2 % (12.0-15.0); WHITE BLOOD COUNT 9.2 x10^3/uL (4.8-10.8)
[2024-03-21 14:48] LABS: ALBUMIN 3.1 g/dL (3.2-5.5); ALBUMIN/GLOBULIN RATIO 1.3 (1.0-2.2); BILIRUBIN,TOTAL 0.3 mg/dL (0.2-1.0); CALCIUM 8.9 mg/dL (8.5-10.3); CREATININE 0.6 mg/dL (0.6-1.3); POTASSIUM 3.8 mmol/L (3.5-4.5); TOTAL PROTEIN 5.4 g/dL (6.4-8.9)
[2024-03-21] MEDS: DEXAMETHASONE 10 MG/ML VIAL IVP STA (14:48)
--- NOTE | 2024-03-21 15:12 | XRAY Report ---
PROCEDURE: XR Chest 1V INDICATIONS: cough and dyspnea TECHNIQUE: One view of the chest was acquired. COMPARISON: CT 10/29/2022, x-ray 09/01/2022 FINDINGS: Surgical changes and devices: None. Lungs and pleura: Emphysema. Scarring in the left lung base and biapical scarring. There is a promin ent cystic lesion in the right middle lung zone with a mildly thickened peripheral wall. Mediastinum: Mediastinal contours appear normal. Heart size is normal. Bones and chest wall: No suspicious bony lesions. Overlying soft tissues appear unremarkable. IMPRESSION: No acute cardiopulmonary process. Cystic lesion with a mildly thickened, peripheral wall in the right middle lung zone. Recommend nonem ergent chest CT for complete characterization, as findings could represent malignancy. Reviewed by: Jose Angel Orellana MD on 03/21/2024 3:11 PM PST Approved by: Jose Angel Orellana MD on 03/21/2024 3:11 PM PST Station ID: [id number]
[2024-03-21 15:33] LABS: B. PARAPERTUSSIS- RESP PCR PAN NOT DETECTED; B. PERTUSSIS- RESP PCR PANEL NOT DETECTED; C. PNEUMONIAE- RESP PCR PANEL NOT DETECTED; CORONAVIRUS 229E-RESP PCR NOT DETECTED; CORONAVIRUS HKU1-RESP PCR NOT DETECTED; CORONAVIRUS NL63-RESP PCR NOT DETECTED; CORONAVIRUS OC43-RESP PCR NOT DETECTED; HUMAN METAPNEUMOVIRUS NOT DETECTED; INFLUENZA A- RESP PCR PANEL NOT DETECTED; INFLUENZA B - RESP PCR PANEL NOT DETECTED; M. PNEUMONIAE- RESP PCR PANEL NOT DETECTED; PARAINFLUENZA VIRUS 1 NOT DETECTED; PARAINFLUENZA VIRUS 2 NOT DETECTED; PARAINFLUENZA VIRUS 4 NOT DETECTED; RHINOVIRUS/ENTEROVIRUS NOT DETECTED; RSV- RESP PCR PANEL NOT DETECTED; SARS-CoV-2 -RESP PCR PANEL NOT DETECTED
[2024-03-21] MEDS ORDERED: DOXYCYCLINE 100 MG TABLET PO STA (15:51)
[2024-03-21] MEDS: ALBUTEROL NEB 2.5 MG/3 ML INH STA (16:08)
[2024-03-21] MEDS: IPRATROPIUM/ALBUTEROL 3 ML NEB INH STA (16:09)
[2024-03-21 16:26] LABS: ABG PH 7.32 (7.35-7.45)
[2024-03-21 16:27] LABS: ABG HCO3 38.5 mmol/L (22.0-26.0); ABG PO2 78 mmHg (80-100)
[2024-03-21 16:28] LABS: ABG BASE EXCESS 9.6 mmol/L (-2.0-3.0); ABG OXYGEN SATURATION 95 % (94-98); ALLEN TEST POSITIVE
[2024-03-21 16:30] LABS: ABG PCO2 77 mmHg (34-45)
[2024-03-21 16:31] LABS: ABG TCO2 40.9 MMOL/L (21.0-29.0)
[2024-03-21] MEDS: DOXYCYCLINE 100 MG TABLET PO STA (17:27)
[2024-03-21] MEDS: methylPREDNISolone SUCCINATE 40 MG/ML VIAL IVP SCH (17:27)
--- NOTE | 2024-03-21 17:27 | HISTORY & PHYSICAL EXAMINATION ---
Chief Complaint Chief Complaint Chief Complaint: Shortness of breath History of Present Illness Admitted From Admitted From:: ED History Obtained From Records Reviewed: Yes History obtained from: Patient, records Exam Limitations: On BIPAP History of Present Illness HPI Comment/Other: Patient is a 83-year-old female with a history of COPD on 6 L home oxygen, failure to thrive, atrial fibrillation on metoprolol, severe protein calorie malnutrition who presents for shortness of breath. Of note, she has been here almost monthly for the past year for similar complaints. Her last visit was 01/17 to 01/22 for COPD exacerbation. Of note, at this time she expressed concern for home situation, and was attempted to have her placed in a facility, without success. This time, she states that she has been feeling short of breath for the past 3 to 4 days. It has gotten progressively worse. She endorses a cough with clear sputum production, however it is increased in frequency. She has no fevers or chills. She has no sick contacts. She has been using her home inhalers without relief. As such, she said to come in. In the ER, she was saturating 86% on room air, and was placed on 3 L. She was afebrile, normotensive, with a heart rate of 97. Lab work was doneshowed no leukocytosis, her white blood cell count was 9.2. Her ABG showed a pH of 7.32, as well as a CO2 of 77; she normally runs between 59-63. Her chest x-ray showed no acute cardiopulmonary process, however did show a cystic lesion with mildly thickened peripheral wall, concerning for malignancy. She was lethargic in the emergency room, so she was placed on BiPAP, and then admitted to the ICU for further management. Meds/Allgy Home Medications Ambulatory Orders Medication Instructions Recorded Confirmed montelukast 10 mg tablet 10 mg PO QPM copd 09/06/22 03/22/24 furosemide 20 mg tablet 20 - 60 mg PO DAILY 11/05/23 03/22/24 metoprolol tartrate 25 mg tablet 25 mg PO BID 11/05/23 03/22/24 aspirin 81 mg tablet,delayed 81 mg PO DAILY 11/06/23 03/22/24 release mirtazapine 15 mg tablet 30 mg PO QPM appetite 11/06/23 03/22/24 stimulant/SLEEP potassium chloride 10 mEq 10 meq PO QDAY #90 tabs 12/27/23 03/22/24 tablet,extended release tamsulosin 0.4 mg capsule 0.4 mg PO DAILY urinary retention 12/27/23 03/22/24 #90 caps dexamethasone 2 mg tablet 2 mg PO DAILY 12/29/23 03/22/24 albuterol sulfate 2.5 mg/3 mL 2.5 mg inhalation Q6H PRN 01/18/24 03/22/24 (0.083 %) solution for nebulization shortness of breath or wheezing albuterol sulfate 90 mcg/actuation 2 inh inhalation Q4H PRN shortness 01/18/24 03/22/24 aerosol inhaler of breath or wheezing methocarbamol 500 mg tablet 500 mg PO BID 01/18/24 03/22/24 acetaminophen 325 mg tablet 650 mg (2 x 325 mg) PO Q4HR PRN 01/21/24 03/22/24 Pain 1 to 4, or Fever #30 tabs [id number]-jytlzbqx-bbqu 1 tab PO DAILYWM #30 tabs 01/21/24 03/22/24 fumarate 19 mg-folic acid 400 mcg tablet (Therapeutic-M) simvastatin 20 mg tablet (Zocor) 20 mg PO QPM hyperlipidemia 90 01/28/24 03/22/24 days #90 tabs Allergies Allergies Allergy/AdvReac Type Severity Reaction Status Date / Time Penicillins Allergy Intermediate Hives, Verified 03/21/24 14:01 swelling aspirin Allergy Mild Rash Verified 03/21/24 14:01 piroxicam (From Feldene) Allergy Mild Rash Verified 03/21/24 14:01 meperidine (From Demerol) Allergy Unknown Verified 03/21/24 14:01 [facility] Medical History Medical History Atrial fibrillation with RVR DNI (do not intubate) POLST 08/2022 in scanned documents Personal history of poliomyelitis L>R leg weak Severe protein-calorie malnutrition started in 05/2022 w admit to [place] for hip. then pneum 07/2022. weak. failing. 57 Kg 08/2022. Remeron 08/2022. Stroke (cerebrum) 1991 Fall multiple falls since 2021. Left displaced femoral neck fracture fall w transfer to [place] 05/2022 Chronic respiratory failure with hypercapnia started ~2009. Influenza B UTI (urinary tract infection) hx of UTIs. 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 Not a candidate for pacer Cavitary lesion of lung found with 07/2022 admit for pna. attributed to aspiration Hypertension Urinary retention H/O nephrolithotomy with removal of calculi Surgical History Surgical History Status post hip surgery 05/2022 S/P ureteral stent placement Family History Family History Father Colon cancer Mother Parkinson disease Social History Social History Smoking Status: Former smoker If you are a former smoker, when did you quit? (Date/Year): 1984 Number of Years Smoked: 5 How many cigarettes a day do you smoke? (20 cigarettes=1 Pk): 1 Second hand tobacco smoke exposure: No Do you dip or chew tobacco?: No Do you vape?: No Patient requests smoking cessation consult: No Initiate information on smoking cessation: No Living arrangement: At home Marital Status: Single Living Condition: With caregiver(s) and With friend(s) (adopted granddaughter Ben with apergers; Mariana "adopted" but not legally, does shopping, bills, sets up medications; errands not personal care; friend Keyshawn comes daily to help with meals, laundry- has known her for 50 years) Support Person: Yes Relationship: Physical Activity: Bedfast Level: Assisted Home Mobility Equipment: Walker Do you feel safe in your home environment?: Yes Suffered physical, verbal, emotional, or financial abuse?: No History of Abuse: No ETOH Use: None Substance Use: denies use Are you sexually active?: No POLST Patient has POLST: Yes POLST Status: DNR (with selective treatment) Review of Systems Status of ROS: 10 or more systems reviewed and unremarkable except as noted in history and below Constitutional Reports: Fatigue, Malaise and Poor appetite; Denies: Fever or Chills Eyes Denies: Blurry vision Ears, nose, mouth, and throat Denies: Hearing loss, Tinnitus or Neck pain Cardiovascular Reports: Irregular heart rate and shortness of breath with exertion Respiratory Reports: Shortness of breath, Cough, Change in phlegm color, Wheezing, SOB at rest and SOB with exertion; Denies: Sputum production Gastrointestinal Denies: Abdominal pain, Nausea, Vomiting, Poor appetite or Bile emesis Genitourinary Denies: Painful urination, Urinary frequency or Urinary urgency Musculoskeletal Reports: Back pain; Denies: Neck pain, Extremity pain, Extremity swelling or Gout Integumentary/Breast Reports: Dryness; Denies: Rash or Itching Neurological Reports: General weakness and Weakness in extremities; Denies: Headache, Focal weakness, Numbness in extremities or Pre-existing deficit Psychiatric Denies: Depression, Anxiety, Mood swings or Panic attacks Endocrine Reports: Fatigue; Denies: Excessive urination, Excessive thirst or Polyphagia Allergic/Immunologic Reports: Wheezing Prior Level of Functionality: rarely gets out of bed. does not climb stairs (uses stair chair). unable to care for self. Exam Constitutional abnormal body habitus (cachectic) and (thin) thin female who appears chronically ill. HENMT normocephalic and oral mucous membranes normal temporal wasting Eyes PERRL and conjunctivae normal Neck/C-Spine visual inspection normal and trachea midline Lymph no lymphadenopathy noted Chest inspection of chest normal Respiratory breath sounds equal bilaterally and wheezing noted (expiratory wheezes) diminished breath sounds Cardiovascular normal heart rate noted (tachycardia), regular rhythm noted and no murmur Gastrointestinal abdomen normal to inspection, abdomen soft to palpation, nontender to palpation and no hepatosplenomegaly Genitourinary no CVA tenderness Extremities normal to inspection Neurology protection consultant II-XII intact, no focal motor deficit noted and no sensory deficits noted Psychiatry mental status grossly normal, oriented x3, thought process normal and cooperative Skin skin color normal and no rash Conclusion/Plan Problem List (1) COPD with acute exacerbation: Plan: Per patient, she is on 6 L of oxygen at home. She does have end-stage COPD. Will continue Solu-Medrol 40 mg every 6 hours for 3 doses, followed by prednisone 40 mg daily starting tomorrow. Continue DuoNebs oaptgq-ldv-pyazz. She continues to have functional decline as evidenced by her cachexia, fatigue, lack of energy. Will discuss if she would like to see palliative care. (2) Adult failure to thrive: Plan: BMI of 17. Continues to lose weight. She is not taking adequate nutrition. Temporal wasting is noted. On her last visit in 01/2024, patient refused PT/OT, and therefore was unable to go to a SNF. (3) Chronic back pain: Plan: 12/29/23 CT scan shows multilevel DDD with no compression fractures. Also s/p pinning of the left hip. Continue Tylenol as needed. Qualifiers: Back pain laterality: unspecified Back pain location: back pain in unspecified location Qualified Code(s): M54.9 - Dorsalgia, unspecified; G89.29 - Other chronic pain (4) DNI (do not intubate): Plan: Reviewed POLST dated August 2022. Patient is DNR/DNI. (5) Severe protein-calorie malnutrition: Plan: As evidenced by decreased BMI. Temporal wasting on exam. This diagnosis has persisted over at least the last year. (6) Ambulatory dysfunction: Plan: PT/OT/SW consulted. Has a long history of refusing PT/OT but states she's open to it this time. (7) Paroxysmal atrial fibrillation: Plan: Continue metoprolol. Patient not on blood thinner. Lab Results Lab results reviewed: Yes 03/22/24 04:40 03/22/24 04:40 Diagnostic Imaging Results Diagnostic Imaging Results: positive Final report reviewed EKG Results EKG Interpreted Independently: Yes Core Measures Anticipated LOS I expect patient to be DC'd or transferred within 96 hours.: Yes DVT/VTE - Prophylaxis VTE/DVT Device ordered at admit?: Yes VTE/DVT Prophylaxis med ordered at admit?: Yes Stroke - Rehab Assessment Rehab services assessment to be ordered?: Yes AMI - Statin at Admit Aspirin Prescribed on Admit: No Not Ordered - Medical Reason: Not indicated
[2024-03-21] MEDS ORDERED: ACETAMINOPHEN 325 MG TABLET PO PRN (18:21)
[2024-03-21] MEDS ORDERED: SODIUM CHLORIDE FLUSH 0.9% 10 ML SYRINGE IVP PRN (18:21)
[2024-03-21] MEDS: IPRATROPIUM/ALBUTEROL 3 ML NEB INH SCH (19:55)
[2024-03-21] MEDS: MONTELUKAST 10 MG TABLET PO SCH (20:19)
[2024-03-21] MEDS: MIRTAZAPINE 15 MG TABLET PO SCH (20:19)
[2024-03-21] MEDS: ATORVASTATIN 10 MG TABLET PO SCH (20:19)
[2024-03-21] MEDS: METOPROLOL TARTRATE 25 MG TABLET PO SCH (20:19)
[2024-03-22] MEDS: SODIUM CHLORIDE FLUSH 0.9% 10 ML SYRINGE IVP SCH (00:40)
[2024-03-22 05:17] LABS: BASOPHILS % (AUTO) 0.2 %; HCT - HEMATOCRIT 39.6 % (37.0-47.0); HGB - HEMOGLOBIN 11.6 g/dL (12.0-16.0); LYMPHOCYTES # (AUTO) 0.5 10^3/uL (1.5-3.5); LYMPHOCYTES % (AUTO) 7.1 %; MEAN CORPUSCULAR HGB CONC 29.3 g/dL (32.0-36.0); MEAN PLATELET VOLUME 9.7 fL (7.9-10.8); MONOCYTES % (AUTO) 0.6 %; NEUTROPHILS # (AUTO) 5.8 10^3/uL (1.5-6.6); NEUTROPHILS % (AUTO) 91.6 %; PLT - PLATELET COUNT 422 10^3/uL (130-450); RED CELL DISTRIBUTION WIDTH 13.3 % (12.0-15.0); WHITE BLOOD COUNT 6.3 x10^3/uL (4.8-10.8)
[2024-03-22 05:39] LABS: PHOSPHORUS 2.7 mg/dL (2.5-5.0)
[2024-03-22 05:45] LABS: CALCIUM, IONIZED 1.14 mmol/L (1.15-1.33); VBG PH 7.375 (7.31-7.41)
[2024-03-22 05:48] LABS: ALBUMIN 3.2 g/dL (3.2-5.5); ALBUMIN/GLOBULIN RATIO 1.4 (1.0-2.2); BILIRUBIN,TOTAL 0.3 mg/dL (0.2-1.0); CREATININE 0.7 mg/dL (0.6-1.3); POTASSIUM 4.2 mmol/L (3.5-4.5); TOTAL PROTEIN 5.5 g/dL (6.4-8.9)
[2024-03-22] MEDS: AZITHROMYCIN 250 MG TABLET PO SCH (08:46)
[2024-03-22] MEDS: ENOXAPARIN 40 MG/0.4 ML SYRINGE SUBQ SCH (08:46)
[2024-03-22] MEDS: MULTIVITAMIN W/MINERALS TABLET PO SCH (08:47)
[2024-03-22] MEDS: TAMSULOSIN 0.4 MG CAPSULE PO SCH (08:47)
[2024-03-22] MEDS: ASPIRIN EC 81 MG TABLET PO SCH (08:47)
[2024-03-22] MEDS: FUROSEMIDE 20 MG TABLET PO SCH (08:47)
--- NOTE | 2024-03-22 09:09 | PHARMACY PROGRESS NOTE ---
Best Possible Medication History Admit Date and Time: 03/21/24 1714 Home Medications Medication Instructions Recorded Confirmed Type montelukast 10 mg tablet 10 mg PO QPM copd 09/06/22 03/22/24 Rx furosemide 20 mg tablet 20 - 60 mg PO DAILY 11/05/23 03/22/24 History metoprolol tartrate 25 mg tablet 25 mg PO BID 11/05/23 03/22/24 History aspirin 81 mg tablet,delayed 81 mg PO DAILY 11/06/23 03/22/24 History release mirtazapine 15 mg tablet 30 mg PO QPM appetite 11/06/23 03/22/24 History stimulant/SLEEP potassium chloride 10 mEq 10 meq PO QDAY #90 tabs 12/27/23 03/22/24 Rx tablet,extended release tamsulosin 0.4 mg capsule 0.4 mg PO DAILY urinary retention 12/27/23 03/22/24 Rx #90 caps dexamethasone 2 mg tablet 2 mg PO DAILY 12/29/23 03/22/24 History albuterol sulfate 2.5 mg/3 mL 2.5 mg inhalation Q6H PRN 01/18/24 03/22/24 History (0.083 %) solution for nebulization shortness of breath or wheezing albuterol sulfate 90 mcg/actuation 2 inh inhalation Q4H PRN shortness 01/18/24 03/22/24 History aerosol inhaler of breath or wheezing methocarbamol 500 mg tablet 500 mg PO BID 01/18/24 03/22/24 History acetaminophen 325 mg tablet 650 mg (2 x 325 mg) PO Q4HR PRN 01/21/24 03/22/24 Rx Pain 1 to 4, or Fever #30 tabs zbrzghnklooo-eckwbhac-rwbt 1 tab PO DAILYWM #30 tabs 01/21/24 03/22/24 Rx fumarate 19 mg-folic acid 400 mcg tablet (Therapeutic-M) simvastatin 20 mg tablet (Zocor) 20 mg PO QPM hyperlipidemia 90 01/28/24 03/22/24 Rx days #90 tabs Processed by: Pharmacy Medications reviewed in ED?: No Medication History completed: Yes Patient Interview: Pt unable to participate Secondary Source(s): Physician records, Pharmacy records and Insurance records BPM Statement: As the person ultimately responsible for medication therapy, providers are able to order a medication from an existing home medication list in [facility] via the "Reconcile Routine" prior to Confirmation of that medication by product support rep. Such practice is discouraged except when the physician, in their clinical judgment, deems that a medical need exists for a medication without regard to previous use.
[2024-03-22] MEDS: IBUPROFEN 400 MG TABLET PO PRN (11:34)
--- NOTE | 2024-03-22 13:43 | PROVIDER PROGRESS NOTE ---
Subjective Subjective Subjective: Patient feels much better today. She has no shortness of breath. She is on less than her home oxygen. She is on 4 L. She denies any fevers or chills. She expressed frustration at her living situation. Current Medications Current Medications Current Medications: Current Medications Generic Name Dose Route Start Last Admin Trade Name Freq PRN Reason Stop Dose Admin Acetaminophen 650 mg 03/21/24 18:21 Acetaminophen 325 Mg Tablet PO Q4HR PRN Pain 1 to 4, or Fever Albuterol/Ipratropium 3 ml 03/21/24 19:00 03/22/24 07:45 Ipratropium/Albuterol 3 Ml Neb INH 3 ml RTQID HENOK Administration Aspirin 81 mg 03/22/24 09:00 03/22/24 08:47 Aspirin Ec 81 Mg Tablet PO 81 mg DAILY HENOK Administration Atorvastatin Calcium 10 mg 03/21/24 21:00 03/21/24 20:19 Atorvastatin 10 Mg Tablet PO 10 mg QPM HENOK Administration Azithromycin 250 mg 03/22/24 09:00 03/22/24 08:46 Azithromycin 250 Mg Tablet PO 250 mg DAILY HENOK Administration Enoxaparin Sodium 40 mg 03/22/24 09:00 03/22/24 08:46 Enoxaparin 40 Mg/0.4 Ml Syringe SUBQ 40 mg DAILY HENOK Administration Furosemide 20 - 60 mg 03/22/24 09:00 03/22/24 08:47 Furosemide 20 Mg Tablet PO 20 mg DAILY HENOK Administration Ibuprofen 400 mg 03/21/24 18:21 03/22/24 11:34 Ibuprofen 400 Mg Tablet PO 400 mg Q4HR PRN Administration Pain 1 to 4 Metoprolol Tartrate 25 mg 03/21/24 21:00 03/22/24 08:47 Metoprolol Tartrate 25 Mg Tablet PO 25 mg BID HENOK Administration Mirtazapine 30 mg 03/21/24 21:00 03/21/24 20:19 Mirtazapine 15 Mg Tablet PO 30 mg QPM HENOK Administration Montelukast Sodium 10 mg 03/21/24 21:00 03/21/24 20:19 Montelukast 10 Mg Tablet PO 10 mg QPM HENOK Administration Multivitamins/Minerals 1 tab 03/22/24 08:00 03/22/24 08:47 Multivitamin W/Minerals Tablet PO 1 tab DAILYWM HENOK Administration Sodium Chloride 10 ml 03/22/24 01:00 03/22/24 08:47 Sodium Chloride Flush 0.9% 10 Ml Syringe IVP 10 ml 0100,0900,1700 HENOK Administration Sodium Chloride 10 ml 03/21/24 18:21 Sodium Chloride Flush 0.9% 10 Ml Syringe IVP PRN PRN NEEDED PER PROVIDER ORDERS Tamsulosin HCl 0.4 mg 03/22/24 09:00 03/22/24 08:47 Tamsulosin 0.4 Mg Capsule PO 0.4 mg DAILY HENOK Administration Objective Vital Signs/Intake & Output Reviewed Vital Signs: Yes Vital Signs: Vital Signs x48h Temp Pulse Pulse Resp BP BP Pulse Ox 03/22/24 10:00 92 27 H 105/57 L 97 03/22/24 09:00 102 H 26 H 100/63 93 03/22/24 08:47 99 122/89 03/22/24 08:00 98.0 F 91 23 122/89 97 03/22/24 07:45 82 16 03/22/24 07:00 88 23 113/74 96 03/22/24 06:37 03/22/24 06:00 83 27 H 148/71 H 99 O2 Flow Rate 03/22/24 10:00 4 03/22/24 09:00 4 03/22/24 08:47 03/22/24 08:00 4 03/22/24 07:45 6 03/22/24 07:00 3 03/22/24 06:37 6 03/22/24 06:00 6 Intake & Output: Intake & Output 03/19/24 03/20/24 03/21/24 03/22/24 23:59 23:59 23:59 23:59 Intake Total 360 / 360 240 / 240 Output Total 0 / 0 550 / 550 Balance 360 / 360 -310 / -310 Weight (kg) 45 kg 46 kg Objective General Appearance: positive No acute distress and Alert Eyes Bilateral: positive Normal inspection, PERRL and EOMI ENT: positive ENT inspection nml, Pharynx nml and No signs of dehydration Neck: positive Nml inspection, Thyroid nml and No JVD Respiratory: positive Chest non-tender, No respiratory distress and Breath sounds nml; negative Wheezes, Rales or Rhonchi Cardiovascular: positive Regular rate & rhythm, No murmur and No gallop; negative Systolic murmur or Diastolic murmur Abdomen: positive Non-tender; negative Guarding, Rebound, Hepatomegaly, Splenomegaly or Mass Back: positive Nml inspection; negative CVA tenderness (R) or CVA tenderness (L) Skin: positive Color nml, No rash and Warm Extremities: positive Non-tender, Full ROM and Nml appearance Neurologic/Psychiatric: positive Oriented x3 and Mood/affect nml Lab Results 03/22/24 04:40 03/22/24 04:40 Other Labs: Lab Results x24hrs 03/22/24 03/21/24 03/21/24 Range/Units 04:40 18:00 16:15 WBC 6.3 (4.8-10.8) x10^3/uL RBC 4.00 L (4.20-5.40) 10^6/uL Hgb 11.6 L (12.0-16.0) g/dL Hct 39.6 (37.0-47.0) % MCV 99.0 (81.0-99.0) fL MCH 29.0 (27.0-31.0) pg MCHC 29.3 L (32.0-36.0) g/dL RDW 13.3 (12.0-15.0) % Plt Count 422 (130-450) 10^3/uL MPV 9.7 (7.9-10.8) fL Neut # (Auto) 5.8 (1.5-6.6) 10^3/uL Lymph # (Auto) 0.5 L (1.5-3.5) 10^3/uL Kidder # (Auto) 0.0 (0.0-1.0) 10^3/uL Eos # (Auto) 0.0 (0.0-0.7) 10^3/uL Baso # (Auto) 0.0 (0.0-0.1) 10^3/uL Absolute Nucleated RBC 0.00 x10^3/uL Nucleated RBC % 0.0 /100WBC Bld Gas Analysis Time 1624 Sample Site RIGHT RADIAL ABG pH 7.32 L (7.35-7.45) ABG pCO2 77 H* (34-45) mmHg ABG pO2 78 L (80-100) mmHg ABG HCO3 38.5 H (22.0-26.0) mmol/L ABG Total CO2 40.9 H* (21.0-29.0) MMOL/L ABG O2 Saturation 95 (94-98) % ABG Base Excess 9.6 H (-2.0-3.0) mmol/L Migue Test POSITIVE VBG pH 7.375 (7.31-7.41) Ionized Calcium 1.14 L (1.15-1.33) mmol/L O2 Delivery Device NASAL CANNULA O2 Liters/Min 3.00 LPM Sodium 140 (135-145) mmol/L Potassium 4.2 (3.5-4.5) mmol/L Chloride 93 L (101-111) mmol/L Carbon Dioxide 45 H* (21-32) mmol/L Anion Gap 2.0 L (6-13) BUN 18 (6-20) mg/dL Creatinine 0.7 (0.6-1.3) mg/dL Estimated GFR (MDRD) 80 L (>89) Glucose 180 H (74-104) mg/dL Calcium 9.0 (8.5-10.3) mg/dL Phosphorus 2.7 (2.5-5.0) mg/dL Magnesium 2.0 (1.7-2.3) mg/dL Total Bilirubin 0.3 (0.2-1.0) mg/dL AST 10 (10-42) IU/L ALT 7 L (10-60) IU/L Alkaline Phosphatase 58 (42-121) IU/L Total Protein 5.5 L (6.4-8.9) g/dL Albumin 3.2 (3.2-5.5) g/dL Globulin 2.3 (2.1-4.2) g/dL Albumin/Globulin Ratio 1.4 (1.0-2.2) Lipase (11-82) U/L Nasal Adenovirus (PCR) Nasal B. parapertussis DNA (PCR) Nasal Coronavir 229E PCR Nasal Coronavir HKU1 PCR Nasal Coronavir NL63 PCR Nasal Coronavir OC43 PCR Nasal Enterovir/Rhinovir PCR Nasal Influenza B PCR Nasal Influenza A PCR Nasal Parainfluen 1 PCR Nasal Parainfluen 2 PCR Nasal Parainfluen 3 PCR Nasal Parainfluen 4 PCR Nasal RSV (PCR) Nasal Screen MRSA (PCR) NEGATIVE (NEGATIVE) Nasal B.pertussis DNA PCR Nasal C.pneumoniae (PCR) Ashutosh Human Metapneumo PCR Nasal M.pneumoniae (PCR) Nasal SARS-CoV-2 (PCR) 03/21/24 03/21/24 Range/Units 14:25 14:23 WBC 9.2 (4.8-10.8) x10^3/uL RBC 4.29 (4.20-5.40) 10^6/uL Hgb 12.0 (12.0-16.0) g/dL Hct 43.8 (37.0-47.0) % MCV 102.1 H (81.0-99.0) fL MCH 28.0 (27.0-31.0) pg MCHC 27.4 L (32.0-36.0) g/dL RDW 13.2 (12.0-15.0) % Plt Count 362 (130-450) 10^3/uL MPV 9.5 (7.9-10.8) fL Neut # (Auto) 6.2 (1.5-6.6) 10^3/uL Lymph # (Auto) 2.1 (1.5-3.5) 10^3/uL Kidder # (Auto) 0.5 (0.0-1.0) 10^3/uL Eos # (Auto) 0.3 (0.0-0.7) 10^3/uL Baso # (Auto) 0.1 (0.0-0.1) 10^3/uL Absolute Nucleated RBC 0.00 x10^3/uL Nucleated RBC % 0.0 /100WBC Bld Gas Analysis Time Sample Site ABG pH (7.35-7.45) ABG pCO2 (34-45) mmHg ABG pO2 (80-100) mmHg ABG HCO3 (22.0-26.0) mmol/L ABG Total CO2 (21.0-29.0) MMOL/L ABG O2 Saturation (94-98) % ABG Base Excess (-2.0-3.0) mmol/L Migue Test VBG pH (7.31-7.41) Ionized Calcium (1.15-1.33) mmol/L O2 Delivery Device O2 Liters/Min LPM Sodium 144 (135-145) mmol/L Potassium 3.8 (3.5-4.5) mmol/L Chloride 96 L (101-111) mmol/L Carbon Dioxide 45 H* (21-32) mmol/L Anion Gap 3.0 L (6-13) BUN 13 (6-20) mg/dL Creatinine 0.6 (0.6-1.3) mg/dL Estimated GFR (MDRD) 95 (>89) Glucose 141 H (74-104) mg/dL Calcium 8.9 (8.5-10.3) mg/dL Phosphorus (2.5-5.0) mg/dL Magnesium 2.0 (1.7-2.3) mg/dL Total Bilirubin 0.3 (0.2-1.0) mg/dL AST 12 (10-42) IU/L ALT 7 L (10-60) IU/L Alkaline Phosphatase 58 (42-121) IU/L Total Protein 5.4 L (6.4-8.9) g/dL Albumin 3.1 L (3.2-5.5) g/dL Globulin 2.3 (2.1-4.2) g/dL Albumin/Globulin Ratio 1.3 (1.0-2.2) Lipase 14 (11-82) U/L Nasal Adenovirus (PCR) NOT DETECTED Nasal B. parapertussis DNA (PCR) NOT DETECTED Nasal Coronavir 229E PCR NOT DETECTED Nasal Coronavir HKU1 PCR NOT DETECTED Nasal Coronavir NL63 PCR NOT DETECTED Nasal Coronavir OC43 PCR NOT DETECTED Nasal Enterovir/Rhinovir PCR NOT DETECTED Nasal Influenza B PCR NOT DETECTED Nasal Influenza A PCR NOT DETECTED Nasal Parainfluen 1 PCR NOT DETECTED Nasal Parainfluen 2 PCR NOT DETECTED Nasal Parainfluen 3 PCR NOT DETECTED Nasal Parainfluen 4 PCR NOT DETECTED Nasal RSV (PCR) NOT DETECTED Nasal Screen MRSA (PCR) (NEGATIVE) Nasal B.pertussis DNA PCR NOT DETECTED Nasal C.pneumoniae (PCR) NOT DETECTED Ashutosh Human Metapneumo PCR NOT DETECTED Nasal M.pneumoniae (PCR) NOT DETECTED Nasal SARS-CoV-2 (PCR) NOT DETECTED Diagnostic Imaging Diagnostic Imaging Results: positive Final report reviewed Assessment/Plan Problem List (1) COPD with acute exacerbation: Impression: Per patient, she is on 6 L of oxygen at home. She does have end-stage COPD. Will continue Solu-Medrol 40 mg every 6 hours for 3 doses, followed by prednisone 40 mg daily starting tomorrow. Continue DuoNebs [id number]. She continues to have functional decline as evidenced by her cachexia, fatigue, lack of energy. (2) Adult failure to thrive: Impression: BMI of 17. Continues to lose weight. Encouraged P.O. intake. She is not taking adequate nutrition. Temporal wasting is noted. (3) Chronic back pain: Impression: 12/29/23 CT scan shows multilevel DDD with no compression fractures. Also s/p pinning of the left hip. Continue Tylenol as needed. Qualifiers: Back pain laterality: unspecified Back pain location: back pain in unspecified location Qualified Code(s): M54.9 - Dorsalgia, unspecified; G89.29 - Other chronic pain (4) DNI (do not intubate): Impression: Reviewed POLST dated August 2022. Patient is DNR/DNI. (5) Severe protein-calorie malnutrition: Impression: As evidenced by decreased BMI. Temporal wasting on exam. This diagnosis has persisted over at least the last year. (6) Ambulatory dysfunction: Impression: PT/OT/SW consulted. Has a long history of refusing PT/OT but states she's open to it this time. (7) Paroxysmal atrial fibrillation: Impression: Continue metoprolol. Patient not on blood thinner.
[2024-03-23 04:56] LABS: HCT - HEMATOCRIT 35.2 % (37.0-47.0); HGB - HEMOGLOBIN 10.4 g/dL (12.0-16.0); MEAN CORPUSCULAR HEMOGLOBIN 29.1 pg (27.0-31.0); MEAN CORPUSCULAR HGB CONC 29.5 g/dL (32.0-36.0); MEAN CORPUSCULAR VOLUME 98.6 fL (81.0-99.0); MEAN PLATELET VOLUME 9.5 fL (7.9-10.8); RED BLOOD COUNT 3.57 10^6/uL (4.20-5.40); RED CELL DISTRIBUTION WIDTH 13.4 % (12.0-15.0); WHITE BLOOD COUNT 17.5 x10^3/uL (4.8-10.8)
[2024-03-23 05:20] LABS: CALCIUM 8.6 mg/dL (8.5-10.3); CREATININE 0.9 mg/dL (0.6-1.3); POTASSIUM 4.4 mmol/L (3.5-4.5)
[2024-03-23 06:25] LABS: BILIRUBIN,URINE NEGATIVE (NEGATIVE); GLUCOSE, URINE (UA) NEGATIVE (NEGATIVE); KETONES,URINE (UA) NEGATIVE (NEGATIVE); LEUKOCYTE ESTERASE, URINE MODERATE (NEGATIVE); NITRITE,URINE NEGATIVE (NEGATIVE); OCCULT BLOOD,URINE NEGATIVE (NEGATIVE); PROTEIN,URINE NEGATIVE (NEGATIVE); UROBILINOGEN,URINE 0.2 (NORMAL) E.U./dL (NORMAL)
[2024-03-23 06:38] LABS: BACTERIA,URINE Many /HPF (None Seen); CLARITY,URINE HAZY (CLEAR); RBC,URINE 0-5 /HPF (0-5); SQUAMOUS EPITHELIAL CELL,UR FEW Squamous (<= Few); WBC,URINE >25 /HPF (0-5)
[2024-03-23 06:40] LABS: CRYSTALS,URINE 0-2 Calcium Oxalate /LPF
[2024-03-23] MEDS: cefTRIAXone 1 GM VIAL IVP SCH (09:06)
--- NOTE | 2024-03-23 11:18 | PROVIDER PROGRESS NOTE ---
Subjective Subjective Subjective: Patient feels much better today. She has no shortness of breath. She is on less than her home oxygen. She is on 4 L. She denies any fevers or chills. She expressed frustration at her living situation. She does endorse some dysuria. She had some urinary retention while she was here, resulting in Paz placement. UA was done, and it did show white blood cells, leukocyte esterase. Urine culture was collected as well. Patient was spoken with about SNF, and is agreeable to go if she qualifies. Current Medications Current Medications Current Medications: Current Medications Generic Name Dose Route Start Last Admin Trade Name Freq PRN Reason Stop Dose Admin Acetaminophen 650 mg 03/21/24 18:21 Acetaminophen 325 Mg Tablet PO Q4HR PRN Pain 1 to 4, or Fever Albuterol/Ipratropium 3 ml 03/21/24 19:00 03/23/24 07:44 Ipratropium/Albuterol 3 Ml Neb INH 3 ml RTQID HENOK Administration Aspirin 81 mg 03/22/24 09:00 03/23/24 09:05 Aspirin Ec 81 Mg Tablet PO 81 mg DAILY HENOK Administration Atorvastatin Calcium 10 mg 03/21/24 21:00 03/22/24 21:12 Atorvastatin 10 Mg Tablet PO 10 mg QPM HENOK Administration Azithromycin 250 mg 03/22/24 09:00 03/23/24 09:07 Azithromycin 250 Mg Tablet PO 250 mg DAILY HENOK Administration Ceftriaxone Sodium 1 gm 03/23/24 09:00 03/23/24 09:06 Ceftriaxone 1 Gm Vial IVP 1 gm DAILY HENOK Administration Enoxaparin Sodium 40 mg 03/22/24 09:00 03/23/24 09:05 Enoxaparin 40 Mg/0.4 Ml Syringe SUBQ 40 mg DAILY HENOK Administration Furosemide 20 - 60 mg 03/22/24 09:00 03/23/24 09:06 Furosemide 20 Mg Tablet PO 20 mg DAILY HENOK Administration Ibuprofen 400 mg 03/21/24 18:21 03/22/24 11:34 Ibuprofen 400 Mg Tablet PO 400 mg Q4HR PRN Administration Pain 1 to 4 Metoprolol Tartrate 25 mg 03/21/24 21:00 03/23/24 09:06 Metoprolol Tartrate 25 Mg Tablet PO 25 mg BID HENOK Administration Mirtazapine 30 mg 03/21/24 21:00 03/22/24 21:12 Mirtazapine 15 Mg Tablet PO 30 mg QPM HENOK Administration Montelukast Sodium 10 mg 03/21/24 21:00 03/22/24 22:00 Montelukast 10 Mg Tablet PO 10 mg QPM HENOK Administration Multivitamins/Minerals 1 tab 03/22/24 08:00 03/23/24 09:06 Multivitamin W/Minerals Tablet PO 1 tab DAILYWM HENOK Administration Sodium Chloride 10 ml 03/22/24 01:00 03/23/24 09:06 Sodium Chloride Flush 0.9% 10 Ml Syringe IVP 10 ml 0100,0900,1700 HENOK Administration Sodium Chloride 10 ml 03/21/24 18:21 Sodium Chloride Flush 0.9% 10 Ml Syringe IVP PRN PRN NEEDED PER PROVIDER ORDERS Tamsulosin HCl 0.4 mg 03/22/24 09:00 03/23/24 09:05 Tamsulosin 0.4 Mg Capsule PO 0.4 mg DAILY HENOK Administration Objective Vital Signs/Intake & Output Reviewed Vital Signs: Yes Vital Signs: Vital Signs x48h Temp Pulse Pulse Resp BP BP Pulse Ox 03/23/24 09:06 69 119/55 L 03/23/24 08:41 97.9 F 69 16 119/55 L 99 03/23/24 07:45 03/23/24 07:45 80 24 03/23/24 06:00 97.7 F 72 17 139/58 H 98 O2 Flow Rate 03/23/24 09:06 03/23/24 08:41 4 03/23/24 07:45 4 03/23/24 07:45 4 03/23/24 06:00 4 Intake & Output: Intake & Output 03/20/24 03/21/24 03/22/24 03/23/24 23:59 23:59 23:59 23:59 Intake Total 360 / 360 480 / 480 237 / 237 Output Total 0 / 0 550 / 550 0 / 0 Balance 360 / 360 -70 / -70 237 / 237 Weight (kg) 45 kg 46 kg 46.5 kg Objective General Appearance: positive No acute distress and Alert Eyes Bilateral: positive Normal inspection, PERRL and EOMI ENT: positive ENT inspection nml, Pharynx nml and No signs of dehydration Neck: positive Nml inspection, Thyroid nml and No JVD Respiratory: positive Chest non-tender, No respiratory distress and Breath sounds nml; negative Wheezes, Rales or Rhonchi Cardiovascular: positive Regular rate & rhythm, No murmur and No gallop; negative Systolic murmur or Diastolic murmur Abdomen: positive Non-tender; negative Guarding, Rebound, Hepatomegaly, Splenomegaly or Mass Back: positive Nml inspection; negative CVA tenderness (R) or CVA tenderness (L) Skin: positive Color nml, No rash and Warm Extremities: positive Non-tender, Full ROM and Nml appearance Neurologic/Psychiatric: positive Oriented x3 and Mood/affect nml Lab Results 03/23/24 04:30 03/23/24 04:30 Other Labs: Lab Results x24hrs 03/23/24 03/23/24 Range/Units 06:15 04:30 WBC 17.5 H (4.8-10.8) x10^3/uL RBC 3.57 L (4.20-5.40) 10^6/uL Hgb 10.4 L (12.0-16.0) g/dL Hct 35.2 L (37.0-47.0) % MCV 98.6 (81.0-99.0) fL MCH 29.1 (27.0-31.0) pg MCHC 29.5 L (32.0-36.0) g/dL RDW 13.4 (12.0-15.0) % Plt Count 395 (130-450) 10^3/uL MPV 9.5 (7.9-10.8) fL Sodium 139 (135-145) mmol/L Potassium 4.4 (3.5-4.5) mmol/L Chloride 93 L (101-111) mmol/L Carbon Dioxide 45 H* (21-32) mmol/L Anion Gap 1.0 L (6-13) BUN 28 H (6-20) mg/dL Creatinine 0.9 (0.6-1.3) mg/dL Estimated GFR (MDRD) 60 L (>89) Glucose 92 (74-104) mg/dL Calcium 8.6 (8.5-10.3) mg/dL Urine Color YELLOW Urine Clarity HAZY (CLEAR) Urine pH 6.0 (5.0-7.5) PH Ur Specific [place] 1.010 (1.002-1.030) Urine Protein NEGATIVE (NEGATIVE) mg/dL Urine Glucose (UA) NEGATIVE (NEGATIVE) mg/dL Urine Ketones NEGATIVE (NEGATIVE) mg/dL Urine Occult Blood NEGATIVE (NEGATIVE) Urine Nitrite NEGATIVE (NEGATIVE) Urine Bilirubin NEGATIVE (NEGATIVE) Urine Urobilinogen 0.2 (NORMAL) (NORMAL) E.U./dL Ur Leukocyte Esterase MODERATE H (NEGATIVE) Urine RBC 0-5 (0-5) /HPF Urine WBC >25 H (0-5) /HPF Ur Squamous Epith Cells FEW Squamous (<= Few) Urine Crystals 0-2 Calcium Oxalate /LPF Urine Bacteria Many H (None Seen) /HPF Urine Culture Comments INDICATED Diagnostic Imaging Diagnostic Imaging Results: positive Final report reviewed Assessment/Plan Problem List (1) COPD with acute exacerbation: Impression: Per patient, she is on 6 L of oxygen at home. She does have end-stage COPD. Completed Solu-Medrol 40 mg every 6 hours for 3 doses. Will start prednisone 40 mg daily today for four additional days. Continue DuoNebs [id number]. She continues to have functional decline as evidenced by her cachexia, fatigue, lack of energy. PT evaluated patient, reccomend SNF. (2) UTI (urinary tract infection): Impression: UA positive for urinary tract infection. Paz placed as patient was retaining. Continue Rocephin daily. Urine culture pending. Will de-escalate to oral antibiotics as appropriate. Leukocytosis, likely due to the urinary tract infection versus reactive to the steroids. Continue to trend. Qualifiers: Hematuria presence: without hematuria Urinary tract infection type: a cute cystitis Qualified Code(s): N30.00 - Acute cystitis without hematuria (3) Adult failure to thrive: Impression: BMI of 17. Continues to lose weight. Encouraged P.O. intake. She is not taking adequate nutrition. Temporal wasting is noted. (4) Chronic back pain: Impression: 12/29/23 CT scan shows multilevel DDD with no compression fractures. Also s/p pinning of the left hip. Continue Tylenol as needed. Qualifiers: Back pain laterality: unspecified Back pain location: back pain in unspecified location Qualified Code(s): M54.9 - Dorsalgia, unspecified; G89.29 - Other chronic pain (5) DNI (do not intubate): Impression: Reviewed POLST dated August 2022. Patient is DNR/DNI. (6) Severe protein-calorie malnutrition: Impression: As evidenced by decreased BMI. Temporal wasting on exam. This diagnosis has persisted over at least the last year. (7) Ambulatory dysfunction: Impression: PT/OT/SW consulted. Has a long history of refusing PT/OT but states she's open to it this time. (8) Paroxysmal atrial fibrillation: Impression: Continue metoprolol. Patient not on blood thinner.
[2024-03-23] MEDS: predniSONE 20 MG TABLET PO SCH (11:41)
--- NOTE | 2024-03-23 14:02 | PT Plan of Care ---
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 then pneum 07/2022. weak. failing. 57 Kg 08/2022. Remeron 08/2022. Stroke (cerebrum) 1990 Fall multiple falls since 2021. Left displaced femoral neck fracture fall w transfer to [facility] 05/2022 Chronic respiratory failure with hypercapnia started ~2009. Influenza B UTI (urinary tract infection) hx of UTIs. 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 Not a candidate for pacer Cavitary lesion of lung found with 07/2022 admit for pna. attributed to aspiration Hypertension Urinary retention H/O nephrolithotomy with removal of calculi Surgical History Status post hip surgery 05/2022 S/P ureteral stent placement
[2024-03-23 14:08] LABS: VBG BASE EXCESS 9.4 mmol/L (-2 - +2); VBG PCO2 51.8 mmHg (41-51); VBG PH 7.447 (7.31-7.41); VBG PO2 59.6 mmHg (25-47); VBG TOTAL CO2 36.5 mmol/L (24-29)
[2024-03-23 14:09] LABS: VBG OXYGEN SATURATION 91.8 % (60-80)
[2024-03-24 04:45] VITALS: TEMP 99; O2SAT 93
[2024-03-24 04:49] LABS: HCT - HEMATOCRIT 36.5 % (37.0-47.0); HGB - HEMOGLOBIN 10.4 g/dL (12.0-16.0); MEAN CORPUSCULAR HEMOGLOBIN 28.4 pg (27.0-31.0); MEAN CORPUSCULAR HGB CONC 28.5 g/dL (32.0-36.0); MEAN CORPUSCULAR VOLUME 99.7 fL (81.0-99.0); MEAN PLATELET VOLUME 9.2 fL (7.9-10.8); RED BLOOD COUNT 3.66 10^6/uL (4.20-5.40); RED CELL DISTRIBUTION WIDTH 13.3 % (12.0-15.0); WHITE BLOOD COUNT 12.6 x10^3/uL (4.8-10.8)
[2024-03-24 04:57] LABS: VBG BASE EXCESS 14.8 mmol/L (-2 - +2); VBG HCO3 41.4 mmol/L (23-28); VBG OXYGEN SATURATION 97.9 % (60-80); VBG PCO2 61.6 mmHg (41-51); VBG PH 7.445 (7.31-7.41); VBG PO2 98.2 mmHg (25-47); VBG TOTAL CO2 3.3 mmol/L (24-29)
[2024-03-24 05:07] LABS: MAGNESIUM 2.2 mg/dL (1.7-2.3)
[2024-03-24 05:17] LABS: CALCIUM 8.2 mg/dL (8.5-10.3); CREATININE 0.8 mg/dL (0.6-1.3); POTASSIUM 4.5 mmol/L (3.5-4.5)
[2024-03-24 08:51] VITALS: BP 107/45
--- NOTE | 2024-03-24 08:59 | PROVIDER PROGRESS NOTE ---
Current Medications Current Medications Current Medications: Current Medications Generic Name Dose Route Start Last Admin Trade Name Freq PRN Reason Stop Dose Admin Acetaminophen 650 mg 03/21/24 18:21 Acetaminophen 325 Mg Tablet PO Q4HR PRN Pain 1 to 4, or Fever Albuterol/Ipratropium 3 ml 03/21/24 19:00 03/24/24 07:28 Ipratropium/Albuterol 3 Ml Neb INH 3 ml RTQID HENOK Administration Aspirin 81 mg 03/22/24 09:00 03/24/24 08:48 Aspirin Ec 81 Mg Tablet PO 81 mg DAILY HENOK Administration Atorvastatin Calcium 10 mg 03/21/24 21:00 03/23/24 21:35 Atorvastatin 10 Mg Tablet PO 10 mg QPM HENOK Administration Azithromycin 250 mg 03/22/24 09:00 03/24/24 08:48 Azithromycin 250 Mg Tablet PO 250 mg DAILY HENOK Administration Ceftriaxone Sodium 1 gm 03/23/24 09:00 03/24/24 08:49 Ceftriaxone 1 Gm Vial IVP 1 gm DAILY HENOK Administration Enoxaparin Sodium 40 mg 03/22/24 09:00 03/24/24 08:48 Enoxaparin 40 Mg/0.4 Ml Syringe SUBQ 40 mg DAILY HENOK Administration Furosemide 20 - 60 mg 03/22/24 09:00 03/24/24 08:48 Furosemide 20 Mg Tablet PO 20 mg DAILY HENOK Administration Ibuprofen 400 mg 03/21/24 18:21 03/22/24 11:34 Ibuprofen 400 Mg Tablet PO 400 mg Q4HR PRN Administration Pain 1 to 4 Metoprolol Tartrate 25 mg 03/21/24 21:00 03/24/24 08:48 Metoprolol Tartrate 25 Mg Tablet PO 25 mg BID HEONK Administration Mirtazapine 30 mg 03/21/24 21:00 03/23/24 21:35 Mirtazapine 15 Mg Tablet PO 30 mg QPM HENOK Administration Montelukast Sodium 10 mg 03/21/24 21:00 03/23/24 21:35 Montelukast 10 Mg Tablet PO 10 mg QPM HENOK Administration Multivitamins/Minerals 1 tab 03/22/24 08:00 03/24/24 08:48 Multivitamin W/Minerals Tablet PO 1 tab DAILYWM HENOK Administration Prednisone 40 mg 03/23/24 12:00 03/24/24 08:48 Prednisone 20 Mg Tablet PO 40 mg DAILYWM HENOK Administration Sodium Chloride 10 ml 03/22/24 01:00 03/24/24 08:52 Sodium Chloride Flush 0.9% 10 Ml Syringe IVP 10 ml 0100,0900,1700 HENOK Administration Sodium Chloride 10 ml 03/21/24 18:21 Sodium Chloride Flush 0.9% 10 Ml Syringe IVP PRN PRN NEEDED PER PROVIDER ORDERS Tamsulosin HCl 0.4 mg 03/22/24 09:00 03/24/24 08:48 Tamsulosin 0.4 Mg Capsule PO 0.4 mg DAILY HENOK Administration Objective Vital Signs/Intake & Output Vital Signs: Vital Signs x48h Temp Pulse Pulse Resp BP BP Pulse Ox 03/24/24 08:48 77 107/45 L 03/24/24 07:28 03/24/24 07:28 65 20 03/24/24 04:00 99.0 F 70 21 118/84 93 O2 Flow Rate 03/24/24 08:48 03/24/24 07:28 3 03/24/24 07:28 03/24/24 04:00 4 Intake & Output: Intake & Output 03/21/24 03/22/24 03/23/24 03/24/24 23:59 23:59 23:59 23:59 Intake Total 360 / 360 480 / 480 337 / 337 300 / 300 Output Total 0 / 0 550 / 550 535 / 535 360 / 360 Balance 360 / 360 -70 / -70 -198 / -198 -60 / -60 Weight (kg) 45 kg 46 kg 46.5 kg 46.5 kg Lab Results 03/24/24 04:41 03/24/24 04:41 Other Labs: Lab Results x24hrs 03/24/24 03/23/24 Range/Units 04:41 14:00 WBC 12.6 H (4.8-10.8) x10^3/uL RBC 3.66 L (4.20-5.40) 10^6/uL Hgb 10.4 L (12.0-16.0) g/dL Hct 36.5 L (37.0-47.0) % MCV 99.7 H (81.0-99.0) fL MCH 28.4 (27.0-31.0) pg MCHC 28.5 L (32.0-36.0) g/dL RDW 13.3 (12.0-15.0) % Plt Count 360 (130-450) 10^3/uL MPV 9.2 (7.9-10.8) fL VBG pH 7.445 H 7.447 H (7.31-7.41) VBG pCO2 61.6 H 51.8 H (41-51) mmHg VBG pO2 98.2 H 59.6 H (25-47) mmHg VBG HCO3 41.4 H 35.0 H (23-28) mmol/L VBG Total CO2 3.3 L 36.5 H (24-29) mmol/L VBG O2 Saturation 97.9 H 91.8 H (60-80) % VBG Base Excess 14.8 H 9.4 H (-2 - +2) mmol/L Sodium 139 (135-145) mmol/L Potassium 4.5 (3.5-4.5) mmol/L Chloride 95 L (101-111) mmol/L Carbon Dioxide 43 H* (21-32) mmol/L Anion Gap 1.0 L (6-13) BUN 29 H (6-20) mg/dL Creatinine 0.8 (0.6-1.3) mg/dL Estimated GFR (MDRD) 68 L (>89) Glucose 114 H (74-104) mg/dL Calcium 8.2 L (8.5-10.3) mg/dL Magnesium 2.2 (1.7-2.3) mg/dL Assessment/Plan Problem List (1) COPD with acute exacerbation: (2) UTI (urinary tract infection): Qualifiers: Hematuria presence: without hematuria Urinary tract infection type: a cute cystitis Qualified Code(s): N30.00 - Acute cystitis without hematuria (3) Adult failure to thrive: (4) Chronic back pain: Qualifiers: Back pain location: back pain in unspecified location Back pain laterality: unspecified Qualified Code(s): M54.9 - Dorsalgia, unspecified; G89.29 - Other chronic pain (5) DNI (do not intubate): (6) Severe protein-calorie malnutrition: (7) Ambulatory dysfunction: (8) Paroxysmal atrial fibrillation:
--- NOTE | 2024-03-24 10:25 | Discharge Summary ---
"Discharge Summary Admit Date: 03/21/24 Discharge Date: 03/24/24 Discharging Provider: Dr. Stephanie Montgomery Primary Care Provider: Gina Pete Code Status: Do Not Attempt Resuscitation Discharge Facility Name: [facility] DIAGNOSES Admission Diagnoses: COPD with acute aspiration Adult failure to thrive Chronic back pain Do not intubate status Severe protein calorie malnutrition Ambulatory dysfunction Paroxysmal atrial fibrillation Discharge Diagnoses with Status of Each Condition: COPD with acute exacerbationpatient back on her home oxygen of 4 to 6 L. Was started on Solu-Medrol, then prednisone. Will continue her home Decadron dose 2 mg daily. Continued DuoNebs [id number] here. Urinary tract infectioncompleted 2 days of Rocephin. Will send 1 more day of Bactrim. Urine culture growing E. coli, susceptibilities to follow. Will update if worsens. Adult failure to thriveBMI of 17, continues to lose weight. Encourage p.o. intake. Chronic back paincontinue Tylenol as needed. DNIPOLST reviewed from 05/08/2022, patient is DNR/DNI. Severe protein calorie malnutritioncontinue to encourage p.o. intake. Amatory dysfunctionPT/OT consulted, recommended SNF. Paroxysmal atrial fibrillationcontinue metoprolol. Patient is not on any anticoagulation. HPI History of Present Illness: Patient is a 83-year-old female with a history of COPD on 6 L home oxygen, failure to thrive, atrial fibrillation on metoprolol, severe protein calorie malnutrition who presents for shortness of breath. Of note, she has been here almost monthly for the past year for similar complaints. Her last visit was 01/17 to 01/22 for COPD exacerbation. Of note, at this time she expressed concern for home situation, and was attempted to have her placed in a facility, without success. This time, she states that she has been feeling short of breath for the past 3 to 4 days. It has gotten progressively worse. She endorses a cough with clear sputum production, however it is increased in frequency. She has no fevers or chills. She has no sick contacts. She has been using her home inhalers without relief. As such, she said to come in. In the ER, she was saturating 86% on room air, and was placed on 3 L. She was afebrile, normotensive, with a heart rate of 97. Lab work was doneshowed no leukocytosis, her white blood cell count was 9.2. Her ABG showed a pH of 7.32, as well as a CO2 of 77; she normally runs between 59-63. Her chest x-ray showed no acute cardiopulmonary process, however did show a cystic lesion with mildly thickened peripheral wall, concerning for malignancy. She was lethargic in the emergency room, so she was placed on BiPAP, and then admitted to the ICU for further management. CONSULTS | PROCEDURES Consultations: PT, OT, SW, RT Procedures: Chest x-ray HOSPITAL COURSE Hospital Course: Patient is a 83-year-old female with a history of COPD on 6 L of home oxygen, atrial fibrillation on metoprolol, severe protein calorie malnutrition presented initially for dyspnea. She has been here almost monthly for the past year for similar complaints. She is on 4 to 6 L of oxygen at home, and appears to be end-stage COPD. She was placed on BiPAP initially and admitted to the ICU. Her oxygen requirements and dyspnea continue to improve. She was started on IV Solu-Medrol, this was transition to oral steroids. She received 3 days of azithromycin for COPD exacerbation as well. On day 2 of admission, her white count increased. She was also found to be retaining urine, and a Paz catheter was placed. UA was positive for infection, urine culture is now growing E. coli. She received 2 days of IV Rocephin, her white blood cell count improved. She will be discharged 1 more day of oral antibiotics with Bactrim. She will be discharged with a Paz catheter in place. Her SNF was given instructions to do a trial of void there. If she continues to retain there, she will need a Paz and urology follow-up. She is already on tamsulosin for this in the outpatient setting. PT/OT evaluate the patient, they recommended discharge to subacute rehab. Patient was discharged to [facility]. ALLERGIES Allergies Allergy/AdvReac Type Severity Reaction Status Date / Time Penicillins Allergy Intermediate Hives, Verified 03/21/24 14:01 swelling aspirin Allergy Mild Rash Verified 03/21/24 14:01 piroxicam (From Feldene) Allergy Mild Rash Verified 03/21/24 14:01 meperidine (From Demerol) Allergy Unknown Verified 01/03/25 14:01 MEDICATIONS Ambulatory Orders Medication Instructions Recorded Confirmed montelukast 10 mg tablet 10 mg PO QPM copd 09/06/22 03/22/24 furosemide 20 mg tablet 20 - 60 mg PO DAILY 11/05/23 03/22/24 metoprolol tartrate 25 mg tablet 25 mg PO BID 11/05/23 03/22/24 aspirin 81 mg tablet,delayed 81 mg PO DAILY 11/06/23 03/22/24 release mirtazapine 15 mg tablet 30 mg PO QPM appetite 11/06/23 03/22/24 stimulant/SLEEP tamsulosin 0.4 mg capsule 0.4 mg PO DAILY urinary retention 12/27/23 03/22/24 #90 caps dexamethasone 2 mg tablet 2 mg PO DAILY 12/29/23 03/22/24 albuterol sulfate 2.5 mg/3 mL 2.5 mg inhalation Q6H PRN 01/18/24 03/22/24 (0.083 %) solution for nebulization shortness of breath or wheezing albuterol sulfate 90 mcg/actuation 2 inh inhalation Q4H PRN shortness 01/18/24 03/22/24 aerosol inhaler of breath or wheezing methocarbamol 500 mg tablet 500 mg PO BID 01/18/24 03/22/24 acetaminophen 325 mg tablet 650 mg (2 x 325 mg) PO Q4HR PRN 01/21/24 03/22/24 Pain 1 to 4, or Fever #30 tabs [id number]-[id number] 1 tab PO DAILYWM #30 tabs 01/21/24 03/22/24 fumarate 19 mg-folic acid 400 mcg tablet (Therapeutic-M) simvastatin 20 mg tablet (Zocor) 20 mg PO QPM hyperlipidemia 90 01/28/24 03/22/24 days #90 tabs sulfamethoxazole 400 1 tab PO BID 1 day #2 tabs 03/24/24 mg-trimethoprim 80 mg tablet (Bactrim) PHYSICAL EXAM AT DISCHARGE General Appearance: positive No acute distress and Alert; negative Anxious Eyes Bilateral: positive Normal inspection, PERRL and EOMI ENT: positive ENT inspection nml, Pharynx nml and No signs of dehydration Neck: positive Nml inspection, Thyroid nml, No JVD and Trachea midline Respiratory: positive Chest non-tender, No respiratory distress and Breath sounds nml; negative Wheezes, Rales or Rhonchi Cardiovascular: positive Regular rate & rhythm (not currently in atrial fibrillation), No murmur and No gallop Peripheral Pulses: positive 2+ Abdomen: positive Non-tender, No organomegaly and Nml bowel sounds Back: positive Nml inspection; negative CVA tenderness (R) or CVA tenderness (L) Skin: positive Color nml, No rash, Warm and Dry Extremities: positive Non-tender, Full ROM and No pedal edema Neurologic/Psychiatric: positive Oriented x3, Motor nml and Mood/affect nml LABS 03/24/24 04:41 03/24/24 04:41 DIAGNOSTIC IMAGING Diagnostic Imaging Results: Final report reviewed SEPSIS Current Stage of Sepsis: Ruled out QUALITY (Female Hip Fx Only) Was patient sent home on osteoporosis medication?: No FOLLOW UP Follow Up: Follow up with [facility] doctor. If continues to retain, follow up with urology. TIME SPENT Time Spent in Discharge (Minutes): 40 Discharge Plan Discharge Patient Disposition: 03 [facility] DC/Xfer Condition: Fair Prescriptions: New sulfamethoxazole-trimethoprim [Bactrim] 400-80 mg tablet 1 tab PO BID 1 Days Qty: 2 0RF Continued simvastatin [Zocor] 20 mg tablet 20 mg PO QPM 90 Days Qty: 90 3RF Patient Comments: TAKE 1 TABLET EVERY NIGHT AT BEDTIME montelukast 10 MG tablet 10 mg PO QPM 0RF furosemide 20 MG tablet 20 - 60 mg PO DAILY Rx Instructions: for swelling as directed metoprolol tartrate 25 MG tablet 25 mg PO BID aspirin 81 MG tablet,delayed release (DR/EC) 81 mg PO DAILY mirtazapine 15 MG tablet 30 mg PO QPM dexamethasone 2 mg tablet 2 mg PO DAILY Patient Comments: take 1 tablet by mouth once daily for APPETITE albuterol sulfate 2.5 mg /3 mL (0.083 %) solution for nebulization 2.5 mg inhalation Q6H PRN (Reason: shortness of breath or wheezing) Rx Instructions: use in neb 2-4 times daily albuterol sulfate 90 mcg/actuation HFA aerosol inhaler 2 inh INHALATION Q4H PRN (Reason: shortness of breath or wheezing) Rx Instructions: 2 puff using inhaler every four hours as needed methocarbamol 500 mg tablet 500 mg PO BID acetaminophen 325 mg Tablet 650 mg PO Q4HR PRN (Reason: Pain 1 to 4, or Fever) Qty: 30 0RF Therapeutic-M 19 mg iron- 400 mcg Tablet 1 tab PO DAILYWM Qty: 30 0RF tamsulosin 0.4 mg capsule 0.4 mg PO DAILY Qty: 90 3RF Patient Comments: take 1 capsule by mouth once daily at bedtime Discontinued potassium chloride 10 mEq tablet extended release 10 meq PO QDAY Qty: 90 3RF Activity Restrictions: Activity as Tolerated Diet: Regular Health Concerns: You came in because you are having some shortness of breath. We treated you for a possible exacerbation of your COPD. You are doing much better from your COPD standpoint. Please continue your Decadron that you have been taking at home. You completed your dose of azithromycin, which helped with your COPD exacerbation. While you were here, we also found that you had a urinary tract infection. You received 2 days of IV antibiotics. I want you to take 1 more day of oral antibiotics once you are discharged. You had to have a catheter placed as you are holding onto urine. I see that you are on Flomax for this as an outpatient. We are going to try to remove it before you leave. If you feel that you are still retaining prior to leaving, we will discharge you with the urinary catheter, and have you follow-up outpatient with urology in 1 to 2 weeks. When the physical therapist work with you, they thought you could benefit from some structured rehab. As such, we are sending you to a longterm facility for further strengthening. We are glad you are feeling better, thank you for allowing us to take care of you. Print Language: Kazakh Patient Instructions: Chronic Lung Disease Nutrition, Chronic Lung Disease Oxygen Stand Alone Forms: SNF Discharge, PCP List Follow-up Care: Gina Pete PA-C [Primary Care Provider] -"
== END 2024-03-24 12:20 | DRG 190 ==
LOC: ED 13:41 → ICU 17:14
PROVIDERS: ADMIT Internal Medicine; ATTEND Internal Medicine
DX: I48.0 Paroxysmal atrial fibrillation; J44.9 Chronic obstructive pulmonary disease, unspecified; B96.20 Unspecified Escherichia coli [E. coli] as the cause of diseases classified elsewhere; J44.1 Chronic obstructive pulmonary disease with (acute) exacerbation; Z87.891 Personal history of nicotine dependence; R33.9 Retention of urine, unspecified; M54.9 Dorsalgia, unspecified; R91.8 Other nonspecific abnormal finding of lung field; N30.00 Acute cystitis without hematuria; E43 Unspecified severe protein-calorie malnutrition; J43.9 Emphysema, unspecified; R62.7 Adult failure to thrive; J96.90 Respiratory failure, unspecified, unspecified whether with hypoxia or hypercapnia; Z66 Do not resuscitate; Z99.81 Dependence on supplemental oxygen; R26.89 Other abnormalities of gait and mobility; Z79.899 Other long term (current) drug therapy; Z79.82 Long term (current) use of aspirin; Z68.1 Body mass index [BMI] 19.9 or less, adult; R64 Cachexia; G89.29 Other chronic pain

== ENCOUNTER 2024-04-12 23:19 | Inpatient (IN) ==
[2024-04-13 00:02] LABS: ABG BASE EXCESS 31.7 mmol/L (-2.0-3.0); ABG OXYGEN SATURATION 89 % (95-98); ABG PH 7.37 (7.35-7.45); ABG PO2 57 mmHg (83-108)
[2024-04-13 00:03] LABS: ABG RESPIRATORY RATE 14 b/min; ALLEN TEST POSITIVE
[2024-04-13 00:07] LABS: ABG PCO2 99 mmHg (34-45); ABG TCO2 60.3 mmol/L (21.0-29.0)
[2024-04-13] MEDS: IPRATROPIUM/ALBUTEROL 3 ML NEB INH STA (00:09)
[2024-04-13 00:14] LABS: BASOPHILS # (AUTO) 0.1 10^3/uL (0.0-0.1); BASOPHILS % (AUTO) 0.4 %; EOSINOPHILS # (AUTO) 0.1 10^3/uL (0.0-0.7); EOSINOPHILS % (AUTO) 0.5 %; HCT - HEMATOCRIT 39.8 % (37.0-47.0); HGB - HEMOGLOBIN 11.4 g/dL (12.0-16.0); LYMPHOCYTES # (AUTO) 1.4 10^3/uL (1.5-3.5); MEAN CORPUSCULAR HEMOGLOBIN 29.3 pg (27.0-31.0); MEAN CORPUSCULAR HGB CONC 28.6 g/dL (32.0-36.0); MEAN CORPUSCULAR VOLUME 102.3 fL (81.0-99.0); MEAN PLATELET VOLUME 9.4 fL (7.9-10.8); MONOCYTES # (AUTO) 1.1 10^3/uL (0.0-1.0); MONOCYTES % (AUTO) 8.8 %; NEUTROPHILS % (AUTO) 78.6 %; PLT - PLATELET COUNT 247 10^3/uL (130-450); RED BLOOD COUNT 3.89 10^6/uL (4.20-5.40); RED CELL DISTRIBUTION WIDTH 13.3 % (12.0-15.0); WHITE BLOOD COUNT 12.7 x10^3/uL (4.8-10.8)
[2024-04-13 00:17] LABS: SLIDE REVIEW? Indicated
[2024-04-13] MEDS: diltiaZEM INJ 5 MG/ML VIAL IVP STA ×2 (00:22→05:31)
[2024-04-13] MEDS: DEXAMETHASONE 10 MG/ML VIAL IVP STA (00:27)
[2024-04-13 00:43] LABS: PLATELET ESTIMATE, MANUAL NORMAL (130-450,000) (NORMAL); PLATELET MORPHOLOGY NORMAL APPEARANCE (NORMAL); RBC MORPHOLOGY (MULTIPLE) 1+ HYPOCHROMASIA (NORMAL); WBC MORPHOLOGY (MULTIPLE) NORMAL APPEARANCE (NORMAL)
--- NOTE | 2024-04-13 00:53 | XRAY Report ---
PROCEDURE: XR Chest 1V INDICATIONS: chest pain TECHNIQUE: One view of the chest was acquired. COMPARISON: 03/21/2024 FINDINGS: Surgical changes and devices: None. Lungs and pleura: 3.1 cm cystic lesion again seen in the right midlung. Possible trace left pleural effusion and mild adjacent opacity. Mediastinum: Cardiomediastinal contours unchanged. Overall normal heart size Bones and chest wall: Degenerative changes. IMPRESSION: No dense airspace disease or pleural effusion. Possible trace left effusion and mild subjacent opacit y. 3.1 cm cystic lesion again seen in the right midlung, consider chest CT follow-up nonurgently. Reviewed by: Brad Marks MD on 04/13/2024 12:51 AM PST Approved by: Brad Marks MD on 04/13/2024 12:51 AM PST Station ID: [id number]
[2024-04-13 00:55] LABS: LIPASE 18 U/L (11-82)
[2024-04-13 01:11] LABS: ALBUMIN 3.3 g/dL (3.2-5.5); ALBUMIN/GLOBULIN RATIO 1.7 (1.0-2.2); ALKALINE PHOSPHATASE 60 IU/L (42-121); ALT ALANINE AMINOTRANSFERASE 16 IU/L (10-60); AST ASPARTATE AMINOTRANSFERASE 17 IU/L (10-42); BILIRUBIN,TOTAL 0.4 mg/dL (0.2-1.0); BUN - BLOOD UREA NITROGEN 19 mg/dL (6-20); CARBON DIOXIDE - CO2 > 45 mmol/L (21-32); CHLORIDE 92 mmol/L (101-111); CREATININE 0.7 mg/dL (0.6-1.3); GFR - MDRD 80 (>89); GLUCOSE 154 mg/dL (74-104); POTASSIUM 3.8 mmol/L (3.5-4.5); SODIUM 143 mmol/L (135-145); TOTAL PROTEIN 5.2 g/dL (6.4-8.9)
--- NOTE | 2024-04-13 05:36 | ED Physician Documentation ---
PD HPI DYSPNEA Stated complaint Stated Complaint: SOA Chief complaint Chief Complaint: Resp History obtained from History obtained from: Patient and EMS History of Present Illness Timing - onset: How many days ago (3) and Chronic Timing - onset during: Rest Timing - duration: Days (3) Timing - details: Gradual onset and Still present Inciting event(s): URI Improved by: O2 and Inhaler/neb Worsened by: Exertion and Coughing Associated symptoms: Cough, Wheezing and Anxiety Similar symptoms before: Diagnosis (advanced COPD) Recently seen: Admitted Additional information Additional information: Tiffany Pena is an 83-year-old female with advanced COPD who is on oxygen at [facility] in [place]. She has had increasing shortness of breath and decreased responsiveness throughout the day today her oxygen saturation is lowered she has been placed onto 6 L nasal cannula.She is transported to the hospital by medics with a DuoNeb running. [place] Coma Scale Assess Eye opening: Spontaneous Verbal response: Oriented Motor response: Obeys Commands Total score: 15 Review of Systems Status of ROS: unobtainable due to medical condition Meds/Allgy Home Medications Ambulatory Orders Medication Instructions Recorded Confirmed montelukast 10 mg tablet 10 mg PO QPM copd 09/06/22 03/22/24 furosemide 20 mg tablet 20 - 60 mg PO DAILY 11/05/23 03/22/24 metoprolol tartrate 25 mg tablet 25 mg PO BID 11/05/23 03/22/24 aspirin 81 mg tablet,delayed 81 mg PO DAILY 11/06/23 03/22/24 release mirtazapine 15 mg tablet 30 mg PO QPM appetite 11/06/23 03/22/24 stimulant/SLEEP tamsulosin 0.4 mg capsule 0.4 mg PO DAILY urinary retention 12/27/23 03/22/24 #90 caps dexamethasone 2 mg tablet 2 mg PO DAILY 12/29/23 03/22/24 albuterol sulfate 2.5 mg/3 mL 2.5 mg inhalation Q6H PRN 01/18/24 03/22/24 (0.083 %) solution for nebulization shortness of breath or wheezing albuterol sulfate 90 mcg/actuation 2 inh inhalation Q4H PRN shortness 01/18/24 03/22/24 aerosol inhaler of breath or wheezing methocarbamol 500 mg tablet 500 mg PO BID 01/18/24 03/22/24 acetaminophen 325 mg tablet 650 mg (2 x 325 mg) PO Q4HR PRN 01/21/24 03/22/24 Pain 1 to 4, or Fever #30 tabs [id number] 1 tab PO DAILYWM #30 tabs 01/21/24 03/22/24 fumarate 19 mg-folic acid 400 mcg tablet (Therapeutic-M) simvastatin 20 mg tablet (Zocor) 20 mg PO QPM hyperlipidemia 90 01/28/24 03/22/24 days #90 tabs sulfamethoxazole 400 1 tab PO BID 1 day #2 tabs 03/24/24 mg-trimethoprim 80 mg tablet (Bactrim) ipratropium 0.5 mg-albuterol 3 mg 3 ml inhalation QID #180 mL 04/02/24 (2.5 mg base)/3 mL nebulization soln Allergies Allergies Allergy/AdvReac Type Severity Reaction Status Date / Time Penicillins Allergy Intermediate Hives, Verified 04/12/24 23:32 swelling aspirin Allergy Mild Rash Verified 04/12/24 23:32 piroxicam (From Feldene) Allergy Mild Rash Verified 04/12/24 23:32 meperidine (From Demerol) Allergy Unknown Verified 04/12/24 23:32 [facility] Medical History Medical History Atrial fibrillation with RVR DNI (do not intubate) POLST 08/2022 in scanned documents 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 then pneum 07/2022. weak. failing. 57 Kg 08/2022. Remeron 08/2022. Stroke (cerebrum) 1991 Fall multiple falls since 2021. Left displaced femoral neck fracture fall w transfer to [facility] 05/2022 Chronic respiratory failure with hypercapnia started ~2009. Influenza B UTI (urinary tract infection) hx of UTIs. 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 Not a candidate for pacer Cavitary lesion of lung found with 07/2022 admit for pna. attributed to aspiration Hypertension Urinary retention H/O nephrolithotomy with removal of calculi Surgical History Surgical History Status post hip surgery 05/2022 S/P ureteral stent placement Family History Family History Father Colon cancer Mother Parkinson disease Social History Social History Smoking Status: Former smoker If you are a former smoker, when did you quit? (Date/Year): 1984 Number of Years Smoked: 5 How many cigarettes a day do you smoke? (20 cigarettes=1 Pk): 1 Second hand tobacco smoke exposure: No Do you dip or chew tobacco?: No Do you vape?: No Patient requests smoking cessation consult: No Initiate information on smoking cessation: No Living arrangement: At home Marital Status: Single Living Condition: With caregiver(s) and With friend(s) (adopted granddaughter Ben with apergers; Mariana "adopted" but not legally, does shopping, bills, sets up medications; errands not personal care; friend Keyshawn comes daily to help with meals, laundry- has known her for 50 years) Support Person: Yes Relationship: Physical Activity: Bedfast Level: Assisted Home Mobility Equipment: Walker History of Abuse: No ETOH Use: None Substance Use: denies use Are you sexually active?: No POLST Patient has POLST: Yes POLST Status: DNR (with selective treatment) Exam Exam Frail 83-year-old female with an oxygen mask in place breathing rapidly is not immediately responsive. She has significant delay in execution of motor commands and she has significant speech delay. She is able to produce several words. 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 After she has been stabilized on BiPAP she is able to talk and interact. Results Vitals Vitals: Vital Signs - 24 hr 04/12/24 23:32 04/12/24 23:40 04/12/24 23:47 Temperature 37.0 C 37 C Temperature Source Tympanic Pulse Rate 119 H 135 H 122 H Respiratory Rate 30 H 30 H Blood Pressure 115/83 115/83 O2 Saturation 85 L 93 Oxygen Delivery Method O2 Source Non-rebreather mask BIPAP If not protocol: Oxygen Flow, liters/minute 15 Fraction of Inspired Oxygen (FIO2) 45 FiO2 (%) 100 40 Pain Intensity 4 04/13/24 00:10 04/13/24 00:10 04/13/24 00:30 Temperature Temperature Source Pulse Rate 121 H 90 91 Respiratory Rate 30 H 32 H 32 H Blood Pressure 110/59 L 106/45 L O2 Saturation 98 92 Oxygen Delivery Method O2 Source BIPAP BIPAP BIPAP If not protocol: Oxygen Flow, liters/minute Fraction of Inspired Oxygen (FIO2) FiO2 (%) 40 40 Pain Intensity 04/13/24 00:35 04/13/24 00:45 04/13/24 00:46 Temperature Temperature Source Pulse Rate 89 99 Respiratory Rate 30 H Blood Pressure 103/47 L O2 Saturation 92 Oxygen Delivery Method Bi-pap O2 Source BIPAP If not protocol: Oxygen Flow, liters/minute Fraction of Inspired Oxygen (FIO2) 50 FiO2 (%) 40 40 Pain Intensity 04/13/24 01:14 04/13/24 01:30 04/13/24 02:30 Temperature 37.1 C Temperature Source Tympanic Pulse Rate 97 106 H 120 H Respiratory Rate 30 H 30 H Blood Pressure 107/58 L 107/58 L O2 Saturation 93 94 Oxygen Delivery Method O2 Source BIPAP BIPAP If not protocol: Oxygen Flow, liters/minute Fraction of Inspired Oxygen (FIO2) 50 FiO2 (%) 40 40 Pain Intensity 3 04/13/24 03:00 04/13/24 04:00 04/13/24 04:30 Temperature 36.1 C L Temperature Source Tympanic Pulse Rate 115 H 120 H 116 H Respiratory Rate 28 H 30 H 32 H Blood Pressure 94/52 L 106/60 106/64 O2 Saturation 95 94 95 Oxygen Delivery Method O2 Source BIPAP BIPAP BIPAP If not protocol: Oxygen Flow, liters/minute Fraction of Inspired Oxygen (FIO2) FiO2 (%) 50 50 50 Pain Intensity 04/13/24 05:40 04/13/24 05:45 04/13/24 06:00 Temperature 37.2 C Temperature Source Tympanic Pulse Rate 90 95 90 Respiratory Rate 28 H 28 H Blood Pressure 94/48 L 107/59 L O2 Saturation 94 96 Oxygen Delivery Method O2 Source BIPAP BIPAP If not protocol: Oxygen Flow, liters/minute Fraction of Inspired Oxygen (FIO2) 50 FiO2 (%) 50 50 Pain Intensity 04/13/24 06:28 04/13/24 06:30 04/13/24 07:00 Temperature Temperature Source Pulse Rate 100 97 95 Respiratory Rate 28 H Blood Pressure 92/58 L O2 Saturation 96 95 Oxygen Delivery Method O2 Source BIPAP If not protocol: Oxygen Flow, liters/minute Fraction of Inspired Oxygen (FIO2) 45 FiO2 (%) 50 Pain Intensity 0 0 04/13/24 07:30 04/13/24 08:00 04/13/24 08:04 Temperature Temperature Source Pulse Rate 113 H 98 94 Respiratory Rate 22 18 Blood Pressure 103/62 O2 Saturation 92 96 Oxygen Delivery Method O2 Source BIPAP BIPAP BIPAP If not protocol: Oxygen Flow, liters/minute Fraction of Inspired Oxygen (FIO2) FiO2 (%) Pain Intensity 0 0 04/13/24 08:04 Temperature Temperature Source Pulse Rate 123 H Respiratory Rate Blood Pressure O2 Saturation Oxygen Delivery Method O2 Source If not protocol: Oxygen Flow, liters/minute Fraction of Inspired Oxygen (FIO2) 45 FiO2 (%) Pain Intensity Oxygen O2 Source BIPAP Labs Labs: Laboratory Tests 04/12/24 04/13/24 04/13/24 23:53 00:03 00:25 WBC 12.7 H RBC 3.89 L Hgb 11.4 L Hct 39.8 MCV 102.3 H MCH 29.3 MCHC 28.6 L RDW 13.3 Plt Count 247 MPV 9.4 Neut # (Auto) 10.0 H Lymph # (Auto) 1.4 L Brooks # (Auto) 1.1 H Eos # (Auto) 0.1 Baso # (Auto) 0.1 Absolute Nucleated RBC 0.00 Nucleated RBC % 0.0 Manual Slide Review Indicated WBC Morphology NORMAL APPEARANCE Platelet Estimate NORMAL (130-450,000) Platelet Morphology NORMAL APPEARANCE RBC Morph Micro Appear 1+ HYPOCHROMASIA Bld Gas Analysis Time 2357 Sample Site RIGHT RADIAL ABG pH 7.37 ABG pCO2 99 H* ABG pO2 57 L ABG HCO3 57.3 H ABG Total CO2 60.3 H* ABG O2 Saturation 89 L ABG Base Excess 31.7 H Migue Test POSITIVE Respiration Rate 14 O2 Delivery Device BiPAP FiO2 45.00 EPAP 5 IPAP 14 Sodium 143 Potassium 3.8 Chloride 92 L Carbon Dioxide > 45 H* Anion Gap TNP BUN 19 Creatinine 0.7 Estimated GFR (MDRD) 80 L Glucose 154 H Calcium 9.0 Magnesium 2.0 Total Bilirubin 0.4 AST 17 ALT 16 Alkaline Phosphatase 60 Total Protein 5.2 L Albumin 3.3 Globulin 1.9 L Albumin/Globulin Ratio 1.7 Lipase 18 04/13/24 05:50 WBC RBC Hgb Hct MCV MCH MCHC RDW Plt Count MPV Neut # (Auto) Lymph # (Auto) Brooks # (Auto) Eos # (Auto) Baso # (Auto) Absolute Nucleated RBC Nucleated RBC % Manual Slide Review WBC Morphology Platelet Estimate Platelet Morphology RBC Morph Micro Appear Bld Gas Analysis Time 0553 Sample Site RIGHT RADIAL ABG pH 7.42 ABG pCO2 89 H* ABG pO2 90 ABG HCO3 58.0 H ABG Total CO2 60.7 H* ABG O2 Saturation 99 H ABG Base Excess 33.2 H Migue Test POSITIVE Respiration Rate 14 O2 Delivery Device BiPAP FiO2 50.00 EPAP 5 IPAP 14 Sodium Potassium Chloride Carbon Dioxide Anion Gap BUN Creatinine Estimated GFR (MDRD) Glucose Calcium Magnesium Total Bilirubin AST ALT Alkaline Phosphatase Total Protein Albumin Globulin Albumin/Globulin Ratio Lipase Rads (name of study) chest: Relevant Findings:: Final report received and EMP independent interpretation of test Interpretation: Impression: No dense airspace disease or pleural effusion. Possible trace left effusion and mild subjacent opacity. 3.1 cm cystic lesion again seen in the right midlung, consider chest CT follow-up nonurgently. PD Medical Decision Making ED course Complexity details: reviewed old records, reviewed results, re-evaluated patient, considered differential and d/w patient Reviewed Lab Results: We reviewed a complete blood count showing an elevated white blood cell count of 12.7 hemoglobin of 11.4 and a normal hematocrit of 39.8 these values are somewhat improved from her prior. Platelets are normal at 247,000 for the elevation white count there is now a elevation in the neutrophils. A blood gas done on arrival shows a pH of 7.37 a pCO2 of 99 a pO2 of 57 a bicarbonate of 57.3 and O2 saturation of 89%. A repeat done 6 hours later shows a pH of 7.42 pCO2 of 89 and O2 of 90 bicarb of 58 and total CO2 of 60.7 at oxygen saturation 99%. These laboratory studies indicate the patient has CO2 retention and treatment has improved this. Chemistries show an elevated carbon dioxide similar to what the patient has had on all prior draws of about 45. Remainder of the electrolytes are normal kidney and liver function are normal. ED course: Tiffany Reeves 83-year-old female with chronic respiratory failure presents to the emergency department again with respiratory failure. She appears to have CO2 retention and she is rescued with use of BiPAP, a duoneb and rate control for afib with RVR with the use of diltiazem. Beds are not available. The patient has had improvement since arrival to the emergency department but continues to have work of breathing and will need admission for respiratory failure. At shift change her care is turned over to Dr. Matias anticipating a bed becoming available today for admission to the hospital. Discharge Plan Discharge Patient Disposition: [address] [facility] DC/Xfer Clinical Impression: Severe chronic obstructive pulmonary disease Respiratory failure Qualifiers: Chronicity: acute on chronic Respiratory failure complication: hypoxia and hypercapnia Qualified Code(s): J96.21 - Acute and chronic respiratory failure with hypoxia Prescriptions: No Action simvastatin [Zocor] 20 mg tablet 20 mg PO QPM 90 Days Qty: 90 3RF Patient Comments: TAKE 1 TABLET EVERY NIGHT AT BEDTIME ipratropium-albuterol 0.5 mg-3 mg(2.5 mg base)/3 mL solution for nebulization 3 ml inhalation QID Qty: 180 3RF montelukast 10 MG tablet 10 mg PO QPM 0RF furosemide 20 MG tablet 20 - 60 mg PO DAILY Rx Instructions: for swelling as directed metoprolol tartrate 25 MG tablet 25 mg PO BID aspirin 81 MG tablet,delayed release (DR/EC) 81 mg PO DAILY mirtazapine 15 MG tablet 30 mg PO QPM dexamethasone 2 mg tablet 2 mg PO DAILY Patient Comments: take 1 tablet by mouth once daily for APPETITE albuterol sulfate 2.5 mg /3 mL (0.083 %) solution for nebulization 2.5 mg inhalation Q6H PRN (Reason: shortness of breath or wheezing) Rx Instructions: use in neb 2-4 times daily albuterol sulfate 90 mcg/actuation HFA aerosol inhaler 2 inh INHALATION Q4H PRN (Reason: shortness of breath or wheezing) Rx Instructions: 2 puff using inhaler every four hours as needed methocarbamol 500 mg tablet 500 mg PO BID acetaminophen 325 mg Tablet 650 mg PO Q4HR PRN (Reason: Pain 1 to 4, or Fever) Qty: 30 0RF Therapeutic-M 19 mg iron- 400 mcg Tablet 1 tab PO DAILYWM Qty: 30 0RF sulfamethoxazole-trimethoprim [Bactrim] 400-80 mg tablet 1 tab PO BID 1 Days Qty: 2 0RF tamsulosin 0.4 mg capsule 0.4 mg PO DAILY Qty: 90 3RF Patient Comments: take 1 capsule by mouth once daily at bedtime Print Language: Mongolian
[2024-04-13 06:19] LABS: ABG PH 7.42 (7.35-7.45)
[2024-04-13 06:20] LABS: ABG BASE EXCESS 33.2 mmol/L (-2.0-3.0); ABG OXYGEN SATURATION 99 % (95-98); ABG PO2 90 mmHg (83-108); ALLEN TEST POSITIVE
[2024-04-13 06:21] LABS: ABG RESPIRATORY RATE 14 b/min
[2024-04-13 06:24] LABS: ABG PCO2 89 mmHg (34-45); ABG TCO2 60.7 mmol/L (21.0-29.0)
[2024-04-13] MEDS: cefTRIAXone 1 GM VIAL IVP STA ×2 (07:59→08:03)
[2024-04-13] MEDS ORDERED: ALBUTEROL NEB 2.5 MG/3 ML INH ONE (07:59)
[2024-04-13] MEDS: ALBUTEROL NEB 2.5 MG/3 ML INH STA (08:04)
[2024-04-13 09:10] LABS: B. PARAPERTUSSIS- RESP PCR PAN NOT DETECTED; B. PERTUSSIS- RESP PCR PANEL NOT DETECTED; C. PNEUMONIAE- RESP PCR PANEL NOT DETECTED; CORONAVIRUS 229E-RESP PCR NOT DETECTED; CORONAVIRUS HKU1-RESP PCR NOT DETECTED; CORONAVIRUS NL63-RESP PCR NOT DETECTED; CORONAVIRUS OC43-RESP PCR NOT DETECTED; HUMAN METAPNEUMOVIRUS DETECTED; INFLUENZA A- RESP PCR PANEL NOT DETECTED; INFLUENZA B - RESP PCR PANEL NOT DETECTED; M. PNEUMONIAE- RESP PCR PANEL NOT DETECTED; PARAINFLUENZA VIRUS 1 NOT DETECTED; PARAINFLUENZA VIRUS 2 NOT DETECTED; PARAINFLUENZA VIRUS 4 NOT DETECTED; RHINOVIRUS/ENTEROVIRUS NOT DETECTED; RSV- RESP PCR PANEL NOT DETECTED; SARS-CoV-2 -RESP PCR PANEL NOT DETECTED
[2024-04-13 09:42] LABS: ABG PH 7.47 (7.35-7.45)
[2024-04-13 09:43] LABS: ABG BASE EXCESS 37.3 mmol/L (-2.0-3.0); ABG OXYGEN SATURATION 99 % (95-98); ABG PO2 102 mmHg (83-108)
[2024-04-13 09:51] LABS: ABG PCO2 83 mmHg (34-45); ABG TCO2 63.7 mmol/L (21.0-29.0)
[2024-04-13 09:52] LABS: ABG MODE OF VENTILATION SYNCHRONOUS/TIMES; ALLEN TEST POSITIVE
--- NOTE | 2024-04-13 11:32 | ED Physician Documentation ---
ED Addendum Addendum Addendum: The patient had been still reasonably sleepy at change of shift. She has become more attentive in the last hour or so. Respiratory therapy was working with her and it also given a inline nebulizer treatment. She is conversant with nurse and respiratory and was asking to be off the BiPAP for a little bit. At this point reassessing. She is asking for sips of water. She has a full bladder but is unable to urinate so we will place a Paz catheter as a bladder scanner showing over 500 mL. She is having some back pain and we can give some Toradol. I did not want to give narcotics because of her respiratory suppression. Will see how the patient does in the short-term and decide if need to return her to BiPAP. We can get a VBG. Discharge Plan Discharge Patient Disposition: 66 [facility] DC/Xfer Clinical Impression: Severe chronic obstructive pulmonary disease Respiratory failure Qualifiers: Chronicity: acute on chronic Respiratory failure complication: hypoxia and hypercapnia Qualified Code(s): J96.21 - Acute and chronic respiratory failure with hypoxia Prescriptions: No Action simvastatin [Zocor] 20 mg tablet 20 mg PO QPM 90 Days Qty: 90 3RF Patient Comments: TAKE 1 TABLET EVERY NIGHT AT BEDTIME ipratropium-albuterol 0.5 mg-3 mg(2.5 mg base)/3 mL solution for nebulization 3 ml inhalation QID Qty: 180 3RF montelukast 10 MG tablet 10 mg PO QPM 0RF furosemide 20 MG tablet 20 mg PO DAILY Rx Instructions: for swelling as directed metoprolol tartrate 25 MG tablet 25 mg PO BID aspirin 81 MG tablet,delayed release (DR/EC) 81 mg PO DAILY mirtazapine 15 MG tablet 30 mg PO QPM dexamethasone 2 mg tablet 2 mg PO DAILY Patient Comments: take 1 tablet by mouth once daily for APPETITE albuterol sulfate 2.5 mg /3 mL (0.083 %) solution for nebulization 2.5 mg inhalation Q6H PRN (Reason: shortness of breath or wheezing) Rx Instructions: use in neb 2-4 times daily albuterol sulfate 90 mcg/actuation HFA aerosol inhaler 2 inh INHALATION Q4H PRN (Reason: shortness of breath or wheezing) Rx Instructions: 2 puff using inhaler every four hours as needed methocarbamol 500 mg tablet 500 mg PO BID acetaminophen 325 mg Tablet 650 mg PO Q4HR PRN (Reason: Pain 1 to 4, or Fever) Qty: 30 0RF Therapeutic-M 19 mg iron- 400 mcg Tablet 1 tab PO DAILYWM Qty: 30 0RF pantoprazole [Protonix] 40 mg tablet,delayed release (DR/EC) 40 mg PO DAILY polyethylene glycol 3350 [Miralax] 17 gram/dose powder 17 g PO DAILY PRN (Reason: constipation) senna 8.6 mg capsule 17.2 mg PO DAILY PRN (Reason: constipation) bisacodyl [Dulcolax (bisacodyl)] 10 mg suppository 10 mg CA DAILY PRN (Reason: constipation) tamsulosin 0.4 mg capsule 0.4 mg PO DAILY Qty: 90 3RF Patient Comments: take 1 capsule by mouth once daily at bedtime Print Language: Slovak
[2024-04-13 11:43] LABS: VBG BASE EXCESS 10.3 mmol/L (-2 - +2); VBG PCO2 43.8 mmHg (41-51); VBG PH 7.491 (7.31-7.41); VBG PO2 39.9 mmHg (25-47); VBG TOTAL CO2 35.1 mmol/L (24-29)
[2024-04-13] MEDS: KETOROLAC 15 MG/ML VIAL IVP STA ×2 (12:57→12:58)
[2024-04-13] MEDS ORDERED: SENNA 8.6 MG TABLET PO PRN (13:05)
[2024-04-13] MEDS ORDERED: BISACODYL 10 MG SUPP PR PRN (13:05)
[2024-04-13] MEDS: TAMSULOSIN 0.4 MG CAPSULE PO SCH (13:28)
[2024-04-13] MEDS ORDERED: polyethylene glycoL 3350 17 GM PACKET PO PRN (13:41)
[2024-04-13 13:42] LABS: BILIRUBIN,URINE NEGATIVE (NEGATIVE); GLUCOSE, URINE (UA) NEGATIVE (NEGATIVE); KETONES,URINE (UA) NEGATIVE (NEGATIVE); LEUKOCYTE ESTERASE, URINE TRACE (NEGATIVE); NITRITE,URINE NEGATIVE (NEGATIVE); OCCULT BLOOD,URINE NEGATIVE (NEGATIVE); PROTEIN,URINE 30 mg/dL (NEGATIVE); UROBILINOGEN,URINE 0.2 (NORMAL) E.U./dL (NORMAL)
--- NOTE | 2024-04-13 13:43 | HISTORY & PHYSICAL EXAMINATION ---
Chief Complaint Chief Complaint Chief Complaint: Shortness of breath History of Present Illness History of Present Illness HPI Comment/Other: This is a 83-year-old female with a past medical history of end-stage COPD, on home oxygen, hypertension and urinary retention who presents to the ED for acute shortness of breath. She is a resident of [facility] in [place]. She has had increasing shortness of breath and decreased responsiveness throughout the day. ABG admission indicated pCO2 of 99 pO2 of 57 with a pH of 7.37. Patient was placed on BiPAP in the ED and improved with mentation, ventilation and oxygenation. Latest VBG indicates pH of 7.49, pCO2 of 43 and pO2 of 40. Patient is on chronic Decadron of 2 mg p.o. daily. Patient was given 10 mg in the ED started on DuoNebs and 1 dose of Rocephin. Chest x-ray indicates no dense breath with disease or pleural effusion. Possible trace left effusion and mild subjacent opacity. 3.1 cm cystic lesion again seen in the right midlung. Recent echo done on 12/10 indicates EF of 55% with normal RV and systolic function. Patient is DNR/DNI. Meds/Allgy Home Medications Ambulatory Orders Medication Instructions Recorded Confirmed montelukast 10 mg tablet 10 mg PO QPM copd 09/06/22 04/13/24 furosemide 20 mg tablet 20 mg PO DAILY 11/05/23 04/13/24 metoprolol tartrate 25 mg tablet 25 mg PO BID 11/05/23 04/13/24 aspirin 81 mg tablet,delayed 81 mg PO DAILY 11/06/23 04/13/24 release mirtazapine 15 mg tablet 30 mg PO QPM appetite 11/06/23 04/13/24 stimulant/SLEEP tamsulosin 0.4 mg capsule 0.4 mg PO DAILY urinary retention 12/27/23 04/13/24 #90 caps dexamethasone 2 mg tablet 2 mg PO DAILY 12/29/23 04/13/24 albuterol sulfate 2.5 mg/3 mL 2.5 mg inhalation Q6H PRN 01/18/24 04/13/24 (0.083 %) solution for nebulization shortness of breath or wheezing albuterol sulfate 90 mcg/actuation 2 inh inhalation Q4H PRN shortness 01/18/24 04/13/24 aerosol inhaler of breath or wheezing methocarbamol 500 mg tablet 500 mg PO BID 01/18/24 04/13/24 acetaminophen 325 mg tablet 650 mg (2 x 325 mg) PO Q4HR PRN 01/21/24 04/13/24 Pain 1 to 4, or Fever #30 tabs swkmikevngal-[id number] 1 tab PO DAILYWM #30 tabs 01/21/24 04/13/24 fumarate 19 mg-folic acid 400 mcg tablet (Therapeutic-M) simvastatin 20 mg tablet (Zocor) 20 mg PO QPM hyperlipidemia 90 01/28/24 04/13/24 days #90 tabs ipratropium 0.5 mg-albuterol 3 mg 3 ml inhalation QID #180 mL 04/02/24 04/13/24 (2.5 mg base)/3 mL nebulization soln bisacodyl 10 mg rectal suppository 10 mg OR DAILY PRN constipation 04/13/24 04/13/24 (Dulcolax (bisacodyl)) pantoprazole 40 mg tablet,delayed 40 mg PO DAILY 04/13/24 04/13/24 release (Protonix) polyethylene glycol 3350 17 17 g PO DAILY PRN constipation 04/13/24 04/13/24 gram/dose oral powder (Miralax) sennosides 8.6 mg capsule (senna) 17.2 mg PO DAILY PRN constipation 04/13/24 04/13/24 Allergies Allergies Allergy/AdvReac Type Severity Reaction Status Date / Time Penicillins Allergy Intermediate Hives, Verified 04/12/24 23:32 swelling aspirin Allergy Mild Rash Verified 04/12/24 23:32 piroxicam (From Feldene) Allergy Mild Rash Verified 04/12/24 23:32 meperidine (From Demerol) Allergy Unknown Verified 04/12/24 23:32 [facility] Medical History Medical History Atrial fibrillation with RVR DNI (do not intubate) POLST 08/2022 in scanned documents Personal history of poliomyelitis L>R leg weak Severe protein-calorie malnutrition started in 05/2022 w admit to [place] for hip. then pneum 07/2022. weak. failing. 57 Kg 08/2022. Remeron 08/2022. Stroke (cerebrum) 1991 Fall multiple falls since 2021. Left displaced femoral neck fracture fall w transfer to [place] 05/2022 Chronic respiratory failure with hypercapnia started ~2009. Influenza B UTI (urinary tract infection) hx of UTIs. 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 Not a candidate for pacer Cavitary lesion of lung found with 07/2022 admit for pna. attributed to aspiration Hypertension Urinary retention H/O nephrolithotomy with removal of calculi Surgical History Surgical History Status post hip surgery 05/2022 S/P ureteral stent placement Family History Family History Father Colon cancer Mother Parkinson disease Social History Social History Smoking Status: Former smoker If you are a former smoker, when did you quit? (Date/Year): 1984 Number of Years Smoked: 5 How many cigarettes a day do you smoke? (20 cigarettes=1 Pk): 1 Second hand tobacco smoke exposure: No Do you dip or chew tobacco?: No Do you vape?: No Patient requests smoking cessation consult: No Initiate information on smoking cessation: No Living arrangement: At home Marital Status: Single Living Condition: With caregiver(s) and With friend(s) (adopted granddaughter Ben with apergers; Mariana "adopted" but not legally, does shopping, bills, sets up medications; errands not personal care; friend Keyshawn comes daily to help with meals, laundry- has known her for 50 years) Support Person: Yes Relationship: Physical Activity: Bedfast Level: Assisted Home Mobility Equipment: Walker History of Abuse: No ETOH Use: None Substance Use: denies use Are you sexually active?: No POLST Patient has POLST: Yes POLST Status: DNR (with selective treatment) Review of Systems Status of ROS: 10 or more systems reviewed and unremarkable except as noted in history and below Exam Constitutional no apparent distress cachectic Appearance HENMT normocephalic and head/scalp atraumatic Eyes PERRL and EOMs intact bilaterally Neck/C-Spine visual inspection normal and trachea midline Chest inspection of chest normal and palpation of chest normal Reduced breath sounds bilaterally Respiratory no wheezes and no rales Reduced breath sounds bilaterally Use of woods warden muscles Cardiovascular normal heart rate noted Sinus tach Gastrointestinal abdomen normal to inspection and abdomen soft to palpation Extremities normal to inspection, normal to palpation and no tenderness Neurology site safety coordinator II-XII intact and no movement abnormality noted Walks with walker Skin skin color normal and no rash Conclusion/Plan Problem List (1) Acute on chronic respiratory failure with hypoxia and hypercapnia: Plan: Likely secondary to severe COPD exacerbation. Patient has end-stage COPD. On O2 at home. Start patient on Solu-Medrol, DuoNebs BiPAP as needed Empiric ABX due to immune suppressed state follow respiratory viral panel (2) Metabolic alkalosis: Plan: Most likely compensatory due to elevated pCO2 on ABG Continue to monitor Consider Diamox (3) Urinary retention: Plan: Continue flomax Straight cath as needed (4) COPD (chronic obstructive pulmonary disease): Plan: Plan as above Lab Results Lab results reviewed: Yes 04/13/24 00:03 04/13/24 00:25 Diagnostic Imaging Results Diagnostic Imaging Results: positive Final report reviewed
[2024-04-13 13:55] LABS: CLARITY,URINE SL. CLOUDY (CLEAR); RBC,URINE None Seen /HPF (0-5); SQUAMOUS EPITHELIAL CELL,UR NONE SEEN (<= Few); WBC,URINE >25 /HPF (0-5)
[2024-04-13 13:56] LABS: BACTERIA,URINE Moderate /HPF (None Seen); MUCUS,URINE Few Strands
[2024-04-13] MEDS ORDERED: ONDANSETRON 4 MG/2 ML VIAL IVP PRN (14:10)
[2024-04-13] MEDS ORDERED: ACETAMINOPHEN 325 MG TABLET PO PRN (14:10)
--- NOTE | 2024-04-13 16:00 | PHARMACY PROGRESS NOTE ---
Best Possible Medication History Admit Date and Time: 04/13/24 [id number] Home Medications Medication Instructions Recorded Confirmed Type montelukast 10 mg tablet 10 mg PO QPM copd 09/06/22 04/13/24 Rx furosemide 20 mg tablet 20 mg PO DAILY 11/05/23 04/13/24 History metoprolol tartrate 25 mg tablet 25 mg PO BID 11/05/23 04/13/24 History aspirin 81 mg tablet,delayed 81 mg PO DAILY 11/06/23 04/13/24 History release mirtazapine 15 mg tablet 30 mg PO QPM appetite 11/06/23 04/13/24 History stimulant/SLEEP tamsulosin 0.4 mg capsule 0.4 mg PO DAILY urinary retention 12/27/23 04/13/24 Rx #90 caps dexamethasone 2 mg tablet 2 mg PO DAILY 12/29/23 04/13/24 History albuterol sulfate 2.5 mg/3 mL 2.5 mg inhalation Q6H PRN 01/18/24 04/13/24 History (0.083 %) solution for nebulization shortness of breath or wheezing albuterol sulfate 90 mcg/actuation 2 inh inhalation Q4H PRN shortness 01/18/24 04/13/24 History aerosol inhaler of breath or wheezing methocarbamol 500 mg tablet 500 mg PO BID 01/18/24 04/13/24 History acetaminophen 325 mg tablet 650 mg (2 x 325 mg) PO Q4HR PRN 01/21/24 04/13/24 Rx Pain 1 to 4, or Fever #30 tabs ufjxoimwsybc-[id number]-nshb 1 tab PO DAILYWM #30 tabs 01/21/24 04/13/24 Rx fumarate 19 mg-folic acid 400 mcg tablet (Therapeutic-M) simvastatin 20 mg tablet (Zocor) 20 mg PO QPM hyperlipidemia 90 01/28/24 04/13/24 Rx days #90 tabs ipratropium 0.5 mg-albuterol 3 mg 3 ml inhalation QID #180 mL 04/02/24 04/13/24 Rx (2.5 mg base)/3 mL nebulization soln bisacodyl 10 mg rectal suppository 10 mg HI DAILY PRN constipation 04/13/24 04/13/24 History (Dulcolax (bisacodyl)) pantoprazole 40 mg tablet,delayed 40 mg PO DAILY 04/13/24 04/13/24 History release (Protonix) polyethylene glycol 3350 17 17 g PO DAILY PRN constipation 04/13/24 04/13/24 History gram/dose oral powder (Miralax) sennosides 8.6 mg capsule (senna) 17.2 mg PO DAILY PRN constipation 04/13/24 04/13/24 History Processed by: Pharmacy Medications reviewed in ED?: No Medication History completed: Yes Patient Interview: Pt unable to participate Secondary Source(s): Written medication list and Insurance records [facility] Statement: [facility]. As the person ultimately responsible for medication therapy, providers are able to order a medication from an existing home medication list in [facility] via the "Reconcile Routine" prior to Confirmation of that medication by client support analyst. Such practice is discouraged except when the physician, in their clinical judgment, deems that a medical need exists for a medication without regard to previous use.
[2024-04-13] MEDS: SODIUM CHLORIDE FLUSH 0.9% 10 ML SYRINGE IVP SCH (16:26)
[2024-04-13] MEDS ORDERED: IPRATROPIUM/ALBUTEROL 3 ML NEB INH SCH (17:00)
[2024-04-13] MEDS: IPRATROPIUM/ALBUTEROL 3 ML NEB INH PRN (21:17)
[2024-04-13] MEDS: PRAVASTATIN 40 MG TABLET PO SCH (21:26)
[2024-04-13] MEDS: MIRTAZAPINE 15 MG TABLET PO SCH (21:26)
[2024-04-13] MEDS: methocarbamoL 500 MG TABLET PO SCH (21:26)
[2024-04-13] MEDS: METOPROLOL TARTRATE 25 MG TABLET PO SCH (21:27)
[2024-04-13] MEDS: methylPREDNISolone SUCCINATE 40 MG in SODIUM CHLORIDE 0.9% 250 ML IV SCH (21:27)
[2024-04-13] MEDS: SODIUM CHLORIDE FLUSH 0.9% 10 ML SYRINGE IVP PRN (21:27)
[2024-04-13] MEDS: MONTELUKAST 10 MG TABLET PO SCH (21:27)
[2024-04-13] MEDS: HEPARIN 5,000 UNIT/ML VIAL SUBQ SCH (21:28)
[2024-04-14 05:06] LABS: BASOPHILS % (AUTO) 0.2 %; HGB - HEMOGLOBIN 10.5 g/dL (12.0-16.0); LYMPHOCYTES # (AUTO) 0.6 10^3/uL (1.5-3.5); LYMPHOCYTES % (AUTO) 5.2 %; MEAN CORPUSCULAR HEMOGLOBIN 29.1 pg (27.0-31.0); MEAN CORPUSCULAR HGB CONC 28.4 g/dL (32.0-36.0); MEAN CORPUSCULAR VOLUME 102.5 fL (81.0-99.0); MEAN PLATELET VOLUME 9.7 fL (7.9-10.8); MONOCYTES # (AUTO) 0.2 10^3/uL (0.0-1.0); MONOCYTES % (AUTO) 1.3 %; NEUTROPHILS # (AUTO) 10.6 10^3/uL (1.5-6.6); NEUTROPHILS % (AUTO) 92.8 %; PLT - PLATELET COUNT 252 10^3/uL (130-450); RED BLOOD COUNT 3.61 10^6/uL (4.20-5.40); RED CELL DISTRIBUTION WIDTH 13.5 % (12.0-15.0); WHITE BLOOD COUNT 11.4 x10^3/uL (4.8-10.8)
[2024-04-14 05:22] LABS: SLIDE REVIEW? Indicated
[2024-04-14 05:30] LABS: BUN - BLOOD UREA NITROGEN 27 mg/dL (6-20); CARBON DIOXIDE - CO2 > 45 mmol/L (21-32); CHLORIDE 92 mmol/L (101-111); CREATININE 0.7 mg/dL (0.6-1.3); GFR - MDRD 80 (>89); GLUCOSE 145 mg/dL (74-104); POTASSIUM 4.4 mmol/L (3.5-4.5); SODIUM 142 mmol/L (135-145)
[2024-04-14 05:35] LABS: PLATELET ESTIMATE, MANUAL NORMAL (130-450,000) (NORMAL); PLATELET MORPHOLOGY NORMAL APPEARANCE (NORMAL); WBC MORPHOLOGY (MULTIPLE) NORMAL APPEARANCE (NORMAL)
[2024-04-14] MEDS: cefTRIAXone 2 GM in SODIUM CHLORIDE 0.9% MINIBAG 100 ML IV SCH (08:23)
[2024-04-14] MEDS: FUROSEMIDE 20 MG TABLET PO SCH (08:24)
[2024-04-14] MEDS: PANTOPRAZOLE 40 MG TABLET PO SCH (08:24)
[2024-04-14] MEDS: methylPREDNISolone SUCCINATE 40 MG/ML VIAL IVP SCH (08:24)
[2024-04-14] MEDS: AZITHROMYCIN 250 MG TABLET PO SCH (08:24)
[2024-04-14] MEDS: dexAMETHasone 4 MG TABLET PO SCH (08:24)
[2024-04-14] MEDS: ASPIRIN EC 81 MG TABLET PO SCH (08:24)
--- NOTE | 2024-04-14 08:55 | PROVIDER PROGRESS NOTE ---
Subjective Prog Note Date Prog Note Date: 04/14/24 Prog Note Time: 08:46 Subjective Subjective: This is a 83-year-old female with a past medical history of end-stage COPD, on home oxygen, hypertension and urinary retention who presents to the ED for acute shortness of breath. She is a resident of [facility] in [place]. She has had increasing shortness of breath and decreased responsiveness throughout the day. ABG admission indicated pCO2 of 99 pO2 of 57 with a pH of 7.37. Patient was placed on BiPAP in the ED and improved with mentation, ventilation and oxygenation. Latest VBG indicates pH of 7.49, pCO2 of 43 and pO2 of 40. Patient is on chronic Decadron of 2 mg p.o. daily. Patient was given 10 mg in the ED started on DuoNebs and 1 dose of Rocephin. Chest x-ray indicates no dense breath with disease or pleural effusion. Possible trace left effusion and mild subjacent opacity. 3.1 cm cystic lesion again seen in the right midlung. Recent echo done on 12/10 indicates EF of 55% with normal RV and systolic function. Patient is DNR/DNI. 04/14/2024: Patient is feeling well, lethargic. Was on BiPAP overnight. Current Medications Current Medications Current Medications: Current Medications Generic Name Dose Route Start Last Admin Trade Name Freq PRN Reason Stop Dose Admin Acetaminophen 650 mg 04/13/24 14:10 Acetaminophen 325 Mg Tablet PO Q4HR PRN Pain 1 to 4, or Fever Albuterol/Ipratropium 3 ml 04/13/24 13:11 04/13/24 21:17 Ipratropium/Albuterol 3 Ml Neb INH 3 ml Q4HR PRN Administration Wheezing Aspirin 81 mg 04/14/24 09:00 04/14/24 08:24 Aspirin Ec 81 Mg Tablet PO 81 mg DAILY HENOK Administration Azithromycin 500 mg 04/14/24 09:00 04/14/24 08:24 Azithromycin 250 Mg Tablet PO 500 mg DAILY HENOK Administration Bisacodyl 10 mg 04/13/24 13:05 Bisacodyl 10 Mg Supp AL DAILY PRN constipation Dexamethasone 2 mg 04/14/24 09:00 04/14/24 08:24 Dexamethasone 4 Mg Tablet PO 2 mg DAILY HENOK Administration Furosemide 20 mg 04/14/24 09:00 04/14/24 08:24 Furosemide 20 Mg Tablet PO 20 mg DAILY HENOK Administration Heparin Sodium (Porcine) 5,000 unit 04/13/24 21:00 04/14/24 08:23 Heparin 5,000 Unit/Ml Vial SUBQ 5,000 unit BID HENOK Administration Ceftriaxone Sodium 2 gm/ 100 mls @ 200 mls/hr 04/14/24 09:00 04/14/24 08:23 Sodium Chloride IV 200 mls/hr DAILY HENOK Administration Methocarbamol 500 mg 04/13/24 21:00 04/14/24 08:24 Methocarbamol 500 Mg Tablet PO 500 mg BID HENOK Administration Methylprednisolone 40 mg 04/14/24 09:00 04/14/24 08:24 Methylprednisolone Succinate 40 Mg/Ml Vial IVP 40 mg BID HENOK Administration Metoprolol Tartrate 25 mg 04/13/24 21:00 04/14/24 08:24 Metoprolol Tartrate 25 Mg Tablet PO 25 mg BID HENOK Administration Mirtazapine 30 mg 04/13/24 21:00 04/13/24 21:26 Mirtazapine 15 Mg Tablet PO 30 mg QPM HENOK Administration Montelukast Sodium 10 mg 04/13/24 21:00 04/13/24 21:27 Montelukast 10 Mg Tablet PO 10 mg QPM HENOK Administration Ondansetron HCl 4 mg 04/13/24 14:10 Ondansetron 4 Mg/2 Ml Vial IVP Q6HR PRN Nausea / Vomiting Pantoprazole Sodium 40 mg 04/14/24 09:00 04/14/24 08:24 Pantoprazole 40 Mg Tablet PO 40 mg DAILY HENOK Administration Polyethylene Glycol 17 gm 04/13/24 13:41 Polyethylene Glycol 3350 17 Gm Packet PO DAILY PRN constipation Pravastatin Sodium 40 mg 04/13/24 21:00 04/13/24 21:26 Pravastatin 40 Mg Tablet PO 40 mg QPM HENOK Administration Senna 17.2 mg 04/13/24 13:05 Senna 8.6 Mg Tablet PO DAILY PRN constipation Sodium Chloride 10 ml 04/13/24 14:10 04/13/24 21:27 Sodium Chloride Flush 0.9% 10 Ml Syringe IVP 10 ml PRN PRN Administration NEEDED PER PROVIDER ORDERS Sodium Chloride 10 ml 04/13/24 17:00 04/14/24 08:25 Sodium Chloride Flush 0.9% 10 Ml Syringe IVP 10 ml 0100,0900,1700 HENOK Administration Tamsulosin HCl 0.4 mg 04/13/24 09:00 04/14/24 08:24 Tamsulosin 0.4 Mg Capsule PO 0.4 mg DAILY HENOK Administration Objective Vital Signs/Intake & Output Reviewed Vital Signs: Yes Vital Signs: Vital Signs x48h Temp Pulse Pulse Resp BP BP Pulse Ox 04/14/24 08:24 98 121/76 04/14/24 07:44 04/14/24 07:00 04/14/24 07:00 100 22 110/71 100 04/14/24 06:00 94 20 96/54 L 98 04/14/24 05:00 90 22 94/61 93 04/14/24 05:00 04/14/24 04:00 36.7 C 75 22 136/59 H 100 04/14/24 03:30 04/14/24 03:00 04/14/24 03:00 107 H 25 H 118/68 98 04/14/24 02:00 93 21 123/53 L 98 04/14/24 01:45 04/14/24 01:45 04/14/24 01:25 04/14/24 01:00 04/14/24 01:00 94 22 122/50 L 98 O2 Flow Rate 04/14/24 08:24 04/14/24 07:44 5 04/14/24 07:00 5 04/14/24 07:00 5 04/14/24 06:00 5 04/14/24 05:00 5 04/14/24 05:00 5 04/14/24 04:00 04/14/24 03:30 5 04/14/24 03:00 5 04/14/24 03:00 04/14/24 02:00 5 04/14/24 01:45 5 04/14/24 01:45 5 04/14/24 01:25 45 04/14/24 01:00 45 04/14/24 01:00 Intake & Output: Intake & Output 04/11/24 04/12/24 04/13/24 04/14/24 23:59 23:59 23:59 23:59 Intake Total 250 / 250 Output Total 622 / 622 188 / 188 Balance -372 / -372 -188 / -188 Weight (kg) 50 kg 43.5 kg Objective General Appearance: positive No acute distress, Lethargic and Other (Cachectic appearance) Eyes Bilateral: positive Normal inspection and PERRL ENT: positive ENT inspection nml and Pharynx nml Neck: positive Nml inspection and Trachea midline Respiratory: positive Chest non-tender and No respiratory distress Cardiovascular: positive Regular rate & rhythm and No murmur Abdomen: positive Non-tender and No organomegaly Skin: positive Color nml and No rash Extremities: positive Non-tender and Full ROM Neurologic/Psychiatric: positive Oriented x3 and Other (Confused at times) Lab Results 04/14/24 04:31 04/14/24 04:31 Other Labs: Lab Results x24hrs 04/14/24 04/14/24 04/13/24 Range/Units 04:31 04:31 15:30 WBC 11.4 H (4.8-10.8) x10^3/uL RBC 3.61 L (4.20-5.40) 10^6/uL Hgb 10.5 L (12.0-16.0) g/dL Hct 37.0 (37.0-47.0) % MCV 102.5 H (81.0-99.0) fL MCH 29.1 (27.0-31.0) pg MCHC 28.4 L (32.0-36.0) g/dL RDW 13.5 (12.0-15.0) % Plt Count 252 (130-450) 10^3/uL MPV 9.7 (7.9-10.8) fL Neut # (Auto) 10.6 H (1.5-6.6) 10^3/uL Lymph # (Auto) 0.6 L (1.5-3.5) 10^3/uL Cameron # (Auto) 0.2 (0.0-1.0) 10^3/uL Eos # (Auto) 0.0 (0.0-0.7) 10^3/uL Baso # (Auto) 0.0 (0.0-0.1) 10^3/uL Absolute Nucleated RBC 0.00 x10^3/uL Nucleated RBC % 0.0 /100WBC Manual Slide Review Indicated WBC Morphology NORMAL APPEARANCE (NORMAL) Platelet Estimate NORMAL (130-450,000) (NORMAL) Platelet Morphology NORMAL APPEARANCE (NORMAL) RBC Morph Micro Appear 1+ STOMATOCYTES 2+ HYPOCHROMASIA (NORMAL) Bld Gas Analysis Time Sample Site ABG pH (7.35-7.45) ABG pCO2 (34-45) mmHg ABG pO2 (83-108) mmHg ABG HCO3 (22.0-26.0) mmol/L ABG Total CO2 (21.0-29.0) mmol/L ABG O2 Saturation (95-98) % ABG Base Excess (-2.0-3.0) mmol/L Migue Test VBG pH (7.31-7.41) VBG pCO2 (41-51) mmHg VBG pO2 (25-47) mmHg VBG HCO3 (23-28) mmol/L VBG Total CO2 (24-29) mmol/L VBG O2 Saturation (60-80) % VBG Base Excess (-2 - +2) mmol/L O2 Delivery Device Vent Mode FiO2 EPAP cmH2O IPAP cmH2O Sodium 142 (135-145) mmol/L Potassium 4.4 (3.5-4.5) mmol/L Chloride 92 L (101-111) mmol/L Carbon Dioxide > 45 H* (21-32) mmol/L Anion Gap TNP BUN 27 H (6-20) mg/dL Creatinine 0.7 (0.6-1.3) mg/dL Estimated GFR (MDRD) 80 L (>89) Glucose 145 H (74-104) mg/dL Calcium 9.0 (8.5-10.3) mg/dL Urine Color Urine Clarity (CLEAR) Urine pH (5.0-7.5) PH Ur Specific W[place] (1.002-1.030) Urine Protein (NEGATIVE) mg/dL Urine Glucose (UA) (NEGATIVE) mg/dL Urine Ketones (NEGATIVE) mg/dL Urine Occult Blood (NEGATIVE) Urine Nitrite (NEGATIVE) Urine Bilirubin (NEGATIVE) Urine Urobilinogen (NORMAL) E.U./dL Ur Leukocyte Esterase (NEGATIVE) Urine RBC (0-5) /HPF Urine WBC (0-5) /HPF Ur Squamous Epith Cells (<= Few) Urine Bacteria (None Seen) /HPF Urine Mucus Ur Microscopic Review Urine Culture Comments Nasal Adenovirus (PCR) Nasal B. parapertussis DNA (PCR) Nasal Coronavir 229E PCR Nasal Coronavir HKU1 PCR Nasal Coronavir NL63 PCR Nasal Coronavir OC43 PCR Nasal Enterovir/Rhinovir PCR Nasal Influenza B PCR Nasal Influenza A PCR Nasal Parainfluen 1 PCR Nasal Parainfluen 2 PCR Nasal Parainfluen 3 PCR Nasal Parainfluen 4 PCR Nasal RSV (PCR) Nasal Screen MRSA (PCR) NEGATIVE (NEGATIVE) Nasal B.pertussis DNA PCR Nasal C.pneumoniae (PCR) Ashutosh Human Metapneumo PCR Nasal M.pneumoniae (PCR) Nasal SARS-CoV-2 (PCR) 04/13/24 04/13/24 04/13/24 Range/Units 13:20 11:37 09:32 WBC (4.8-10.8) x10^3/uL RBC (4.20-5.40) 10^6/uL Hgb (12.0-16.0) g/dL Hct (37.0-47.0) % MCV (81.0-99.0) fL MCH (27.0-31.0) pg MCHC (32.0-36.0) g/dL RDW (12.0-15.0) % Plt Count (130-450) 10^3/uL MPV (7.9-10.8) fL Neut # (Auto) (1.5-6.6) 10^3/uL Lymph # (Auto) (1.5-3.5) 10^3/uL Cameron # (Auto) (0.0-1.0) 10^3/uL Eos # (Auto) (0.0-0.7) 10^3/uL Baso # (Auto) (0.0-0.1) 10^3/uL Absolute Nucleated RBC x10^3/uL Nucleated RBC % /100WBC Manual Slide Review WBC Morphology (NORMAL) Platelet Estimate (NORMAL) Platelet Morphology (NORMAL) RBC Morph Micro Appear (NORMAL) Bld Gas Analysis Time 0938 Sample Site RIGHT RADIAL ABG pH 7.47 H (7.35-7.45) ABG pCO2 83 H* (34-45) mmHg ABG pO2 102 (83-108) mmHg ABG HCO3 61.2 H (22.0-26.0) mmol/L ABG Total CO2 63.7 H* (21.0-29.0) mmol/L ABG O2 Saturation 99 H (95-98) % ABG Base Excess 37.3 H (-2.0-3.0) mmol/L Migue Test POSITIVE VBG pH 7.491 H (7.31-7.41) VBG pCO2 43.8 (41-51) mmHg VBG pO2 39.9 (25-47) mmHg VBG HCO3 33.8 H (23-28) mmol/L VBG Total CO2 35.1 H (24-29) mmol/L VBG O2 Saturation 77.0 (60-80) % VBG Base Excess 10.3 H (-2 - +2) mmol/L O2 Delivery Device BiPAP Vent Mode SYNCHRONOUS/TIMES FiO2 45.00 EPAP 5 cmH2O IPAP 18 cmH2O Sodium (135-145) mmol/L Potassium (3.5-4.5) mmol/L Chloride (101-111) mmol/L Carbon Dioxide (21-32) mmol/L Anion Gap BUN (6-20) mg/dL Creatinine (0.6-1.3) mg/dL Estimated GFR (MDRD) (>89) Glucose (74-104) mg/dL Calcium (8.5-10.3) mg/dL Urine Color YELLOW Urine Clarity SL. CLOUDY (CLEAR) Urine pH 6.0 (5.0-7.5) PH Ur Specific [place] 1.020 (1.002-1.030) Urine Protein 30 H (NEGATIVE) mg/dL Urine Glucose (UA) NEGATIVE (NEGATIVE) mg/dL Urine Ketones NEGATIVE (NEGATIVE) mg/dL Urine Occult Blood NEGATIVE (NEGATIVE) Urine Nitrite NEGATIVE (NEGATIVE) Urine Bilirubin NEGATIVE (NEGATIVE) Urine Urobilinogen 0.2 (NORMAL) (NORMAL) E.U./dL Ur Leukocyte Esterase TRACE H (NEGATIVE) Urine RBC None Seen (0-5) /HPF Urine WBC >25 H (0-5) /HPF Ur Squamous Epith Cells NONE SEEN (<= Few) Urine Bacteria Moderate H (None Seen) /HPF Urine Mucus Few Strands Ur Microscopic Review INDICATED Urine Culture Comments INDICATED Nasal Adenovirus (PCR) Nasal B. parapertussis DNA (PCR) Nasal Coronavir 229E PCR Nasal Coronavir HKU1 PCR Nasal Coronavir NL63 PCR Nasal Coronavir OC43 PCR Nasal Enterovir/Rhinovir PCR Nasal Influenza B PCR Nasal Influenza A PCR Nasal Parainfluen 1 PCR Nasal Parainfluen 2 PCR Nasal Parainfluen 3 PCR Nasal Parainfluen 4 PCR Nasal RSV (PCR) Nasal Screen MRSA (PCR) (NEGATIVE) Nasal B.pertussis DNA PCR Nasal C.pneumoniae (PCR) Ashutosh Human Metapneumo PCR Nasal M.pneumoniae (PCR) Nasal SARS-CoV-2 (PCR) 04/13/24 Range/Units 08:05 WBC (4.8-10.8) x10^3/uL RBC (4.20-5.40) 10^6/uL Hgb (12.0-16.0) g/dL Hct (37.0-47.0) % MCV (81.0-99.0) fL MCH (27.0-31.0) pg MCHC (32.0-36.0) g/dL RDW (12.0-15.0) % Plt Count (130-450) 10^3/uL MPV (7.9-10.8) fL Neut # (Auto) (1.5-6.6) 10^3/uL Lymph # (Auto) (1.5-3.5) 10^3/uL Cameron # (Auto) (0.0-1.0) 10^3/uL Eos # (Auto) (0.0-0.7) 10^3/uL Baso # (Auto) (0.0-0.1) 10^3/uL Absolute Nucleated RBC x10^3/uL Nucleated RBC % /100WBC Manual Slide Review WBC Morphology (NORMAL) Platelet Estimate (NORMAL) Platelet Morphology (NORMAL) RBC Morph Micro Appear (NORMAL) Bld Gas Analysis Time Sample Site ABG pH (7.35-7.45) ABG pCO2 (34-45) mmHg ABG pO2 (83-108) mmHg ABG HCO3 (22.0-26.0) mmol/L ABG Total CO2 (21.0-29.0) mmol/L ABG O2 Saturation (95-98) % ABG Base Excess (-2.0-3.0) mmol/L Migue Test VBG pH (7.31-7.41) VBG pCO2 (41-51) mmHg VBG pO2 (25-47) mmHg VBG HCO3 (23-28) mmol/L VBG Total CO2 (24-29) mmol/L VBG O2 Saturation (60-80) % VBG Base Excess (-2 - +2) mmol/L O2 Delivery Device Vent Mode FiO2 EPAP cmH2O IPAP cmH2O Sodium (135-145) mmol/L Potassium (3.5-4.5) mmol/L Chloride (101-111) mmol/L Carbon Dioxide (21-32) mmol/L Anion Gap BUN (6-20) mg/dL Creatinine (0.6-1.3) mg/dL Estimated GFR (MDRD) (>89) Glucose (74-104) mg/dL Calcium (8.5-10.3) mg/dL Urine Color Urine Clarity (CLEAR) Urine pH (5.0-7.5) PH Ur Specific [place] (1.002-1.030) Urine Protein (NEGATIVE) mg/dL Urine Glucose (UA) (NEGATIVE) mg/dL Urine Ketones (NEGATIVE) mg/dL Urine Occult Blood (NEGATIVE) Urine Nitrite (NEGATIVE) Urine Bilirubin (NEGATIVE) Urine Urobilinogen (NORMAL) E.U./dL Ur Leukocyte Esterase (NEGATIVE) Urine RBC (0-5) /HPF Urine WBC (0-5) /HPF Ur Squamous Epith Cells (<= Few) Urine Bacteria (None Seen) /HPF Urine Mucus Ur Microscopic Review Urine Culture Comments Nasal Adenovirus (PCR) NOT DETECTED Nasal B. parapertussis DNA (PCR) NOT DETECTED Nasal Coronavir 229E PCR NOT DETECTED Nasal Coronavir HKU1 PCR NOT DETECTED Nasal Coronavir NL63 PCR NOT DETECTED Nasal Coronavir OC43 PCR NOT DETECTED Nasal Enterovir/Rhinovir PCR NOT DETECTED Nasal Influenza B PCR NOT DETECTED Nasal Influenza A PCR NOT DETECTED Nasal Parainfluen 1 PCR NOT DETECTED Nasal Parainfluen 2 PCR NOT DETECTED Nasal Parainfluen 3 PCR NOT DETECTED Nasal Parainfluen 4 PCR NOT DETECTED Nasal RSV (PCR) NOT DETECTED Nasal Screen MRSA (PCR) (NEGATIVE) Nasal B.pertussis DNA PCR NOT DETECTED Nasal C.pneumoniae (PCR) NOT DETECTED Ashutosh Human Metapneumo PCR DETECTED A Nasal M.pneumoniae (PCR) NOT DETECTED Nasal SARS-CoV-2 (PCR) NOT DETECTED Assessment/Plan Problem List (1) Acute on chronic respiratory failure with hypoxia and hypercapnia: Impression: Likely secondary to end-stage COPD with COPD exacerbation. Follow respiratory viral panel. Continue daily Medrol, DuoNebs, BiPAP as needed. Empiric ABX due to immune suppressed state, patient is Chronic steroids. Recommend that patient to go home with BiPAP/CPAP, (2) Metabolic alkalosis: Impression: Most likely compensatory reaction due to hyper chronic hypercapnia. Continue monitor. Start Diamox 250 p.o. daily (3) Urinary retention: Impression: Chronic Straight cath as needed (4) COPD (chronic obstructive pulmonary disease): Impression: Plan as above. patient end-stage COPD and high risk for recurrent admissions. Consider palliative care discussion with family and patient.
[2024-04-14] MEDS: acetaZOLAMIDE 250 MG TABLET PO SCH (10:01)
[2024-04-14] MEDS: MORPHINE 2 MG/ML CARPUJECT IVP PRN (17:39)
[2024-04-15 04:08] VITALS: TEMP 98.8
[2024-04-15 04:53] LABS: BASOPHILS % (AUTO) 0.1 %; HCT - HEMATOCRIT 36.9 % (37.0-47.0); HGB - HEMOGLOBIN 10.2 g/dL (12.0-16.0); LYMPHOCYTES # (AUTO) 0.8 10^3/uL (1.5-3.5); LYMPHOCYTES % (AUTO) 10.6 %; MEAN CORPUSCULAR HEMOGLOBIN 28.3 pg (27.0-31.0); MEAN CORPUSCULAR HGB CONC 27.6 g/dL (32.0-36.0); MEAN CORPUSCULAR VOLUME 102.5 fL (81.0-99.0); MEAN PLATELET VOLUME 9.6 fL (7.9-10.8); MONOCYTES # (AUTO) 0.3 10^3/uL (0.0-1.0); MONOCYTES % (AUTO) 3.8 %; NEUTROPHILS # (AUTO) 6.6 10^3/uL (1.5-6.6); NEUTROPHILS % (AUTO) 85.1 %; PLT - PLATELET COUNT 257 10^3/uL (130-450); RED CELL DISTRIBUTION WIDTH 13.2 % (12.0-15.0); WHITE BLOOD COUNT 7.8 x10^3/uL (4.8-10.8)
[2024-04-15 05:13] LABS: BUN - BLOOD UREA NITROGEN 29 mg/dL (6-20); CALCIUM 8.8 mg/dL (8.5-10.3); CARBON DIOXIDE - CO2 > 45 mmol/L (21-32); CHLORIDE 91 mmol/L (101-111); CREATININE 0.8 mg/dL (0.6-1.3); GFR - MDRD 68 (>89); GLUCOSE 135 mg/dL (74-104); POTASSIUM 3.9 mmol/L (3.5-4.5); SODIUM 143 mmol/L (135-145)
[2024-04-15 08:41] VITALS: BP 122/70
--- NOTE | 2024-04-15 10:15 | PROVIDER PROGRESS NOTE ---
Documented by User: Kelsey Darrel 04/15/24 16:10 Subjective Prog Note Date Prog Note Date: 04/15/24 Prog Note Time: 09:40 Subjective Pt reports feeling: No change Subjective: Tiffany is feeling "lousy" today. She reports significant shortness of breath and a dry mouth. She denies any pain. She has no additional concerns at this time. Current Medications Current Medications Current Medications: Current Medications Generic Name Dose Route Start Last Admin Trade Name Freq PRN Reason Stop Dose Admin Acetaminophen 650 mg 04/13/24 14:10 Acetaminophen 325 Mg Tablet PO Q4HR PRN Pain 1 to 4, or Fever Acetazolamide 250 mg 04/14/24 09:00 04/15/24 08:37 Acetazolamide 250 Mg Tablet PO 250 mg DAILY HENOK Administration Albuterol/Ipratropium 3 ml 04/13/24 13:11 04/14/24 17:36 Ipratropium/Albuterol 3 Ml Neb INH 3 ml Q4HR PRN Administration Wheezing Aspirin 81 mg 04/14/24 09:00 04/15/24 08:36 Aspirin Ec 81 Mg Tablet PO 81 mg DAILY HENOK Administration Azithromycin 500 mg 04/14/24 09:00 04/15/24 08:36 Azithromycin 250 Mg Tablet PO 04/16/24 09:01 500 mg DAILY HENOK Administration Bisacodyl 10 mg 04/13/24 13:05 Bisacodyl 10 Mg Supp [place] DAILY PRN constipation Dexamethasone 2 mg 04/14/24 09:00 04/15/24 08:36 Dexamethasone 4 Mg Tablet PO 2 mg DAILY HENOK Administration Furosemide 20 mg 04/14/24 09:00 04/15/24 08:36 Furosemide 20 Mg Tablet PO 20 mg DAILY HENOK Administration Heparin Sodium (Porcine) 5,000 unit 04/13/24 21:00 04/15/24 08:38 Heparin 5,000 Unit/Ml Vial SUBQ 5,000 unit BID HENOK Administration Ceftriaxone Sodium 2 gm/ 100 mls @ 200 mls/hr 04/14/24 09:00 04/15/24 08:36 Sodium Chloride IV 200 mls/hr DAILY HENOK Administration Methocarbamol 500 mg 04/13/24 21:00 04/15/24 08:37 Methocarbamol 500 Mg Tablet PO 500 mg BID HENOK Administration Metoprolol Tartrate 25 mg 04/13/24 21:00 04/15/24 08:37 Metoprolol Tartrate 25 Mg Tablet PO 25 mg BID HENOK Administration Mirtazapine 30 mg 04/13/24 21:00 04/14/24 21:10 Mirtazapine 15 Mg Tablet PO 30 mg QPM HENOK Administration Montelukast Sodium 10 mg 04/13/24 21:00 04/14/24 21:10 Montelukast 10 Mg Tablet PO 10 mg QPM HENOK Administration Morphine Sulfate 2 mg 04/14/24 17:29 04/14/24 17:39 Morphine 2 Mg/Ml Carpuject IVP 2 mg Q2HR PRN Administration Severe Pain (Level 7-10) Ondansetron HCl 4 mg 04/13/24 14:10 Ondansetron 4 Mg/2 Ml Vial IVP Q6HR PRN Nausea / Vomiting Pantoprazole Sodium 40 mg 04/14/24 09:00 04/15/24 08:37 Pantoprazole 40 Mg Tablet PO 40 mg DAILY HENOK Administration Polyethylene Glycol 17 gm 04/13/24 13:41 Polyethylene Glycol 3350 17 Gm Packet PO DAILY PRN constipation Pravastatin Sodium 40 mg 04/13/24 21:00 04/14/24 21:11 Pravastatin 40 Mg Tablet PO 40 mg QPM HENOK Administration Senna 17.2 mg 04/13/24 13:05 Senna 8.6 Mg Tablet PO DAILY PRN constipation Sodium Chloride 10 ml 04/13/24 14:10 04/14/24 21:12 Sodium Chloride Flush 0.9% 10 Ml Syringe IVP 10 ml PRN PRN Administration NEEDED PER PROVIDER ORDERS Sodium Chloride 10 ml 04/13/24 17:00 04/15/24 08:38 Sodium Chloride Flush 0.9% 10 Ml Syringe IVP 10 ml 0100,0900,1700 HENOK Administration Tamsulosin HCl 0.4 mg 04/13/24 09:00 04/15/24 08:37 Tamsulosin 0.4 Mg Capsule PO 0.4 mg DAILY HENOK Administration Objective Vital Signs/Intake & Output Reviewed Vital Signs: Yes Vital Signs: Vital Signs x48h Temp Pulse Pulse Resp BP BP Pulse Ox 04/15/24 08:37 89 122/70 04/15/24 07:09 93 04/15/24 04:00 37.1 C 81 19 99/53 L 98 04/15/24 03:53 88 04/15/24 01:50 82 Intake & Output: Intake & Output 04/12/24 04/13/24 04/14/24 04/15/24 23:59 23:59 23:59 23:59 Intake Total 250 / 250 100 / 100 250 / 250 Output Total 622 / 622 208 / 208 245 / 245 Balance -372 / -372 -108 / -108 Weight (kg) 50 kg 43.5 kg Objective General Appearance: positive Alert (able to converse and follow conversation appropriately, very focused on breathing ), Moderate distress (bracing herself upright, mouth breathing, increased respiratory rate, shallow breaths ) and Other (cachectic) ENT: positive Dry mucous membranes Neck: positive No JVD and Trachea midline; negative Swelling/bruising Respiratory: positive Wheezes (anterior, diffuse, mild, heard on inspiration and expiration ), Rales (anterior, mild, right upper lobe ) and Rhonchi (anterior); negative No respiratory distress (bracing herself upright, mouth breathing, increased respiratory rate, shallow breaths ) or Breath sounds nml Cardiovascular: positive Regular rate & rhythm Skin: positive No rash (visualized arms, chest, head), Warm and Dry (generalized flaking ); negative Color nml (various areas of ecchymosis along bilateral arms, purpura on left white ), Cyanosis or Diaphoresis Extremities: positive Non-tender and No pedal edema; negative Nml appearance (cachectic ), Calf tenderness or Paramjit's sign/cords Neurologic/Psychiatric: positive Oriented x3 (person, place, event, year ), CN's nml (2-12) (grossly intact ) and Mood/affect nml; negative Facial droop or Slurred/abnml speech Lab Results 04/15/24 04:45 04/15/24 04:45 Other Labs: Lab Results x24hrs 04/15/24 Range/Units 04:45 WBC 7.8 (4.8-10.8) x10^3/uL RBC 3.60 L (4.20-5.40) 10^6/uL Hgb 10.2 L (12.0-16.0) g/dL Hct 36.9 L (37.0-47.0) % MCV 102.5 H (81.0-99.0) fL MCH 28.3 (27.0-31.0) pg MCHC 27.6 L (32.0-36.0) g/dL RDW 13.2 (12.0-15.0) % Plt Count 257 (130-450) 10^3/uL MPV 9.6 (7.9-10.8) fL Neut # (Auto) 6.6 (1.5-6.6) 10^3/uL Lymph # (Auto) 0.8 L (1.5-3.5) 10^3/uL [place] # (Auto) 0.3 (0.0-1.0) 10^3/uL Eos # (Auto) 0.0 (0.0-0.7) 10^3/uL Baso # (Auto) 0.0 (0.0-0.1) 10^3/uL Absolute Nucleated RBC 0.00 x10^3/uL Nucleated RBC % 0.0 /100WBC Sodium 143 (135-145) mmol/L Potassium 3.9 (3.5-4.5) mmol/L Chloride 91 L (101-111) mmol/L Carbon Dioxide > 45 H* (21-32) mmol/L Anion Gap TNP BUN 29 H (6-20) mg/dL Creatinine 0.8 (0.6-1.3) mg/dL Estimated GFR (MDRD) 68 L (>89) Glucose 135 H (74-104) mg/dL Calcium 8.8 (8.5-10.3) mg/dL Diagnostic Imaging Diagnostic Imaging Results: positive Final report reviewed Diagnostic Imaging Comments: 04/13/2024 Chest X-ray: IMPRESSION: No dense airspace disease or pleural effusion. Possible trace left effusion and mild subjacent opacity. 3.1 cm cystic lesion again seen in the right midlung, consider chest CT follow- up nonurgently. Other Results/Comments Other Results/Comments: I have reviewed the patient's labs. Her WBC is now normal. Lymph # is low. RBC, Hgb, Hct are low and trending down. MCV is high. MCHC is low and trending down. Chloride is low and trending lower, this may be near baseline as she has similiar past values. CO2 level is high. BUN is high, GFR is low and trending lower. ABX Reporting Has patient been on IV antibiotics over the past 48 hours?: Yes Assessment/Plan Problem List (1) Acute on chronic respiratory failure with hypoxia and hypercapnia: Impression: - Likely secondary to end-stage COPD with COPD exacerbation likely secondary to human metapneumovirus infection - Plan to discharge on hospice, hospice meeting ordered - Downgraded to medical surgical status - Discontinued acetazolamide since patient is significantly short of breath today and CO2 levels are high - Patient lost her IV access site, discontinued IV methylprednisolone succinate 40 mg bid as patient is on comfort care measures - Ordered oral morphine 10mg every two hours as needed and oral lorazepam 1mg every 6 hours as needed to manage anxiety and air hunger - Plan to continue empiric antibiotic treatment with 3 day course of azithromycin (Day 2/3) since patient is immunosuppressed due to chronic steroid use and a macrolide can provide antiinflammatory effects in COPD exacerbation - Plan to continue inhaled ipratropium/albuterol every 4 hours as needed - Plan to continue BiPAP as needed - Dr. Cole saw patient today and is in agreement that patient is imminent - Will continue comfort care measures (2) COPD (chronic obstructive pulmonary disease): Impression: - COPD exacerbation likely secondary to human metapneumovirus infection - End-stage COPD - See management of acute on chronic respiratory failure with hypoxia and hypercapnia (3) UTI (urinary tract infection): Impression: - Initial urinalysis on 04/13/2024 showed trace leukocyte esterase, high WBC, and moderate bacteria - Urine culture grew E.coli sensitive to ceftriaxone - Patient lost her IV access site, discontinued IV ceftriaxone 2gm daily (Day 2) as patient is on comfort care measures Qualifiers: Hematuria presence: without hematuria Urinary tract infection type: a cute cystitis Qualified Code(s): N30.00 - Acute cystitis without hematuria (4) Metabolic alkalosis: Impression: - Most likely compensatory reaction due to hyper chronic hypercapnia - Discontinued acetazolamide as patient is complaining of significant shortness of breath this morning and carbon dioxide is > 45 mmol/L - Patient is likely experiencing respiratory acidosis today (5) Severe protein-calorie malnutrition: Impression: - Patient is severely cachectic appearing with minimal to no oral intake - BMI < 15 - Plan to continue with regular diet as tolerated, patient is on comfort care measures (6) Urinary retention: Impression: - Chronic - Patient currently has a becerra catheter Documented by User: Stephanie Montgomery MD 04/15/24 16:10 Subjective Subjective Subjective: Tiffany is feeling "lousy" today. She reports significant shortness of breath and a dry mouth. She denies any pain. She has no additional concerns at this time. Over the course of the day, she received morphine for her work of breathing and although she is breathing more comfortably, she is a little more altered and less responsive. 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 COPD exacerbation likely secondary to human metapneumovirus infection - Plan to discharge on hospice, hospice meeting ordered - Downgraded to medical surgical status - Discontinued acetazolamide since patient is significantly short of breath today and CO2 levels are high - Patient lost her IV access site, discontinued IV methylprednisolone succinate 40 mg bid as patient is on comfort care measures - Ordered oral morphine 10mg every two hours as needed and oral lorazepam 1mg every 6 hours as needed to manage anxiety and air hunger - Plan to continue antibiotic treatment with 3 day course of azithromycin (Day 2/3) since patient is immunosuppressed due to chronic steroid use and a macrolide can provide antiinflammatory effects in COPD exacerbation - Plan to continue inhaled ipratropium/albuterol every 4 hours as needed - Plan to continue BiPAP as needed - patient's son is coming in around 5 PM, family has decided to take her off BIPAP, and enact comfort care measure - Dr. Cole, Hospice team, evaluated patient, agree patient is Hospice appropriate, and is imminent - Will continue comfort care measures as outlined above (2) COPD (chronic obstructive pulmonary disease): (3) UTI (urinary tract infection): Qualifiers: Hematuria presence: without hematuria Urinary tract infection type: a cute cystitis Qualified Code(s): N30.00 - Acute cystitis without hematuria (4) Metabolic alkalosis: Impression: - Most likely compensatory reaction due to chronic respiratory acidosis in setting of long-standing COPD - Discontinued acetazolamide as patient is complaining of significant shortness of breath this morning and carbon dioxide is > 45 mmol/L (5) Severe protein-calorie malnutrition: (6) Urinary retention:
[2024-04-15] MEDS: MORPHINE SOL 10 MG/0.5 ML ORAL SYRINGE PO PRN ×2 (12:41→17:42)
[2024-04-15] MEDS: LORazepam 1 MG TABLET PO PRN (12:41)
[2024-04-15] MEDS ORDERED: MORPHINE IR 15 MG TABLET PO SCH (13:00)
[2024-04-15] MEDS: MORPHINE SOL 10 MG/0.5 ML ORAL SYRINGE PO SCH ×2 (14:01→17:17)
[2024-04-15] MEDS: IPRATROPIUM/ALBUTEROL 3 ML NEB INH SCH (15:40)
[2024-04-15] MEDS ORDERED: LORazepam 0.5 MG TABLET PO PRN (15:51)
--- NOTE | 2024-04-15 15:56 | PROVIDER PROGRESS NOTE ---
Progress Note Progress Note Progress Note: 83-year-old female with a history of advanced COPD, chronic hypoxic respiratory failure on 6 LPM, failure to thrive, atrial fibrillation on metoprolol, severe protein calorie malnutrition who has been admitted twice this month d/t respiratory failure (once from 03/21-03/24 and current hospitalization w/admit 04/13). She has been at [facility] for rehab for the past several weeks. She contracted a virus while at [facility] and had increasing SOB and decreased LOC. She was improving yesterday and there was a plan to d/c home w/hospice services d/t being unable to afford private pay at [facility]. Unfortunately, overnight, she developed worsening SOB and was placed on BiPAP. Today, Dr. Montgomery became concerned she may not survive her hospital stay. She asked for me to review pt for possibility of GIP LOC. Pt received po morphine at 1400. She has been resting comfortably since that time per family. They report the plan is for the BiPAP to be d/c'd when her son (DPTHAIS) and granddtr arrive around 5/5:30. At that time, they hope to ensure that Tiffany is comfortable w/de-escalating care. They note she has been alert/oriented prior to getting the morphine this afternoon. After that, they anticipate keeping the BiPAP off. Per Alon pt's RN, pt has lost all IV access. 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 At the time of my evaluation, she is comfortable on Bi-PAP and oral morphine and does not meet criteria for GIP LOC. Discussed w/Dr. Montgomery. Will add morphine 5 mg po q 4 scheduled and q2 PRN (decrease dose from 10 mg). Change lorazepam to 0.5 mg q4 PRN from 1 mg q6 PRN. D/C'd all IV meds d/t her no longer having any IV access. D/c'd nonvital medications (such as asa, methocarbamol and mirtazepine). D/C'd non-comfort based po meds to reduce pill burden. Reviewed w/family that was present that if patient is imminently dying, she can stay in the hospital on the hospitalist service; otherwise, she can d/c home tomorrow and hospice can admit to our service tomorrow. If she develops any uncontrolled sxs w/Bi-PAP w/d that would necessitate GIP LOC, we can reassess on 04/16/24.
[2024-04-15] MEDS ORDERED: MORPHINE SOL 10 MG/0.5 ML ORAL SYRINGE PO ONE (18:00)
[2024-04-15 18:29] VITALS: O2SAT 0
--- NOTE | 2024-04-15 18:30 | Discharge Summary ---
"Discharge Summary Admit Date: 04/13/24 Discharge Date: 04/15/24 Discharging Provider: Dr. Stephanie Montgomery Primary Care Provider: Gina Pete Code Status: Do Not Attempt Resuscitation Discharge Facility Name: Patient DIAGNOSES Admission Diagnoses: Acute on chronic respiratory failure with hypoxia and hypercapnia Metabolic alkalosis Urinary retention COPD Discharge Diagnoses with Status of Each Condition: End-stage COPDpatient after being made comfort care, hospice. HPI History of Present Illness: Per Dr. Walden: This is a 83-year-old female with a past medical history of end-stage COPD, on home oxygen, hypertension and urinary retention who presents to the ED for acute shortness of breath. She is a resident of [facility] in [place]. She has had increasing shortness of breath and decreased responsiveness throughout the day. ABG admission indicated pCO2 of 99 pO2 of 57 with a pH of 7.37. Patient was placed on BiPAP in the ED and improved with mentation, ventilation and oxygenation. Latest VBG indicates pH of 7.49, pCO2 of 43 and pO2 of 40. Patient is on chronic Decadron of 2 mg p.o. daily. Patient was given 10 mg in the ED started on DuoNebs and 1 dose of Rocephin. Chest x-ray indicates no dense breath with disease or pleural effusion. Possible trace left effusion and mild subjacent opacity. 3.1 cm cystic lesion again seen in the right midlung. Recent echo done on 12/10 indicates EF of 55% with normal RV and systolic function. Patient is DNR/DNI. CONSULTS | PROCEDURES Consultations: Hospice Procedures: Chest x-ray HOSPITAL COURSE Hospital Course: Patient is a 83-year-old female with history of end-stage COPD on home oxygen who presented for shortness of breath. Initial ABG did show CO2 retention with this CO2 of 99. She improved on BiPAP. However, when the BiPAP was removed, she was having increasing dyspnea. Patient has frequent readmissions for her COPD exacerbations. Hospice was discussed with patient and family. They were agreeable to starting this. Comfort care orders were enacted this morning when family was at bedside. BiPAP was removed. Patient passed peacefully at 6:24 PM. ALLERGIES Allergies Allergy/AdvReac Type Severity Reaction Status Date / Time Penicillins Allergy Intermediate Hives, Verified 04/12/24 23:32 swelling aspirin Allergy Mild Rash Verified 04/12/24 23:32 piroxicam (From Feldene) Allergy Mild Rash Verified 04/12/24 23:32 meperidine (From Demerol) Allergy Unknown Verified 04/12/24 23:32 MEDICATIONS Ambulatory Orders Medication Instructions Recorded Confirmed montelukast 10 mg tablet 10 mg PO QPM copd 09/06/22 04/13/24 furosemide 20 mg tablet 20 mg PO DAILY 11/05/23 04/13/24 metoprolol tartrate 25 mg tablet 25 mg PO BID 11/05/23 04/13/24 aspirin 81 mg tablet,delayed 81 mg PO DAILY 11/06/23 04/13/24 release mirtazapine 15 mg tablet 30 mg PO QPM appetite 11/06/23 04/13/24 stimulant/SLEEP tamsulosin 0.4 mg capsule 0.4 mg PO DAILY urinary retention 12/27/23 04/13/24 #90 caps dexamethasone 2 mg tablet 2 mg PO DAILY 12/29/23 04/13/24 albuterol sulfate 2.5 mg/3 mL 2.5 mg inhalation Q6H PRN 01/18/24 04/13/24 (0.083 %) solution for nebulization shortness of breath or wheezing albuterol sulfate 90 mcg/actuation 2 inh inhalation Q4H PRN shortness 01/18/24 04/13/24 aerosol inhaler of breath or wheezing methocarbamol 500 mg tablet 500 mg PO BID 01/18/24 04/13/24 acetaminophen 325 mg tablet 650 mg (2 x 325 mg) PO Q4HR PRN 01/21/24 04/13/24 Pain 1 to 4, or Fever #30 tabs [id number] 1 tab PO DAILYWM #30 tabs 01/21/24 04/13/24 fumarate 19 mg-folic acid 400 mcg tablet (Therapeutic-M) simvastatin 20 mg tablet (Zocor) 20 mg PO QPM hyperlipidemia 90 01/28/24 04/13/24 days #90 tabs ipratropium 0.5 mg-albuterol 3 mg 3 ml inhalation QID #180 mL 04/02/24 04/13/24 (2.5 mg base)/3 mL nebulization soln bisacodyl 10 mg rectal suppository 10 mg RI DAILY PRN constipation 04/13/24 04/13/24 (Dulcolax (bisacodyl)) pantoprazole 40 mg tablet,delayed 40 mg PO DAILY 04/13/24 04/13/24 release (Protonix) polyethylene glycol 3350 17 17 g PO DAILY PRN constipation 04/13/24 04/13/24 gram/dose oral powder (Miralax) sennosides 8.6 mg capsule (senna) 17.2 mg PO DAILY PRN constipation 04/13/24 04/13/24 PHYSICAL EXAM AT DISCHARGE Physical Exam Other/Comments: No heart sounds or breath sounds were heard. Pulses were absent. Corneal reflex was absent bilaterally. LABS 04/15/24 04:45 04/15/24 04:45 DIAGNOSTIC IMAGING Diagnostic Imaging Results: Final report reviewed TIME SPENT Time Spent in Discharge (Minutes): 15 Discharge Plan Discharge Patient Disposition: 20 Print Language: Sinhala Date/Time: 04/15/24 18:24"
[2024-04-15] MEDS ORDERED: methylPREDNISolone SUCCINATE 40 MG/ML VIAL IVP SCH (21:00)
== END 2024-04-15 18:24 | disposition expired | DRG 189 ==
LOC: ICU 23:19 → ED 23:19 → ICU 04-13 13:55
PROVIDERS: ADMIT Internal Medicine; ATTEND Internal Medicine
DX: I48.91 Unspecified atrial fibrillation; J12.3 Human metapneumovirus pneumonia; J44.1 Chronic obstructive pulmonary disease with (acute) exacerbation; N30.00 Acute cystitis without hematuria; I10 Essential (primary) hypertension; E87.3 Alkalosis; Z51.5 Encounter for palliative care; J96.21 Acute and chronic respiratory failure with hypoxia; Z79.52 Long term (current) use of systemic steroids; J96.22 Acute and chronic respiratory failure with hypercapnia; R33.9 Retention of urine, unspecified; Z68.1 Body mass index [BMI] 19.9 or less, adult; J44.0 Chronic obstructive pulmonary disease with (acute) lower respiratory infection; Z66 Do not resuscitate; R62.7 Adult failure to thrive; E87.4 Mixed disorder of acid-base balance; D72.829 Elevated white blood cell count, unspecified; D84.821 Immunodeficiency due to drugs; E43 Unspecified severe protein-calorie malnutrition; Z99.81 Dependence on supplemental oxygen; M54.9 Dorsalgia, unspecified; R39.198 Other difficulties with micturition; Z87.891 Personal history of nicotine dependence; R40.2413 Glasgow coma scale score 13-15, at hospital admission; B96.20 Unspecified Escherichia coli [E. coli] as the cause of diseases classified elsewhere; T38.0X5A Adverse effect of glucocorticoids and synthetic analogues, initial encounter